=== PATIENT | male | born 1945 | race Caucasian/White ===

== ENCOUNTER 2016-08-18 12:18 | Emergency (ER) | payer MEDICARE ==
[2016-08-18 13:51] VITALS: RESP 20
[2016-08-18] MEDS ORDERED: SODIUM CHLORIDE 0.9% 1,000 ML IV STA (13:55)
[2016-08-18] MEDS ORDERED: ONDANSETRON 4 MG/2 ML VIAL IVP STA (13:55)
[2016-08-18] MEDS ORDERED: SODIUM CHLORIDE 0.9% 500 ML IV STA (13:55)
[2016-08-18 14:42] LABS: CH 32.2; CHCM 33.1; HDW 2.54; HGB 8.8 gm/dL (13.0-17.5); Immature Gran Flag Slight; MCH 33.1 pg (25.0-35.0); MCHC 33.9 g/dL (31.0-37.0); MCV 97.4 fL (80.0-100.0); Macrocytosis Slight; Mean Platelet Volume 10.5; RBC 2.67 m/uL (4.30-5.90); WBC 9.9 k/uL (3.8-10.6); WBC (Perox) 9.49
[2016-08-18 14:43] LABS: Calcium 8.8 mg/dL (8.4-10.2); Potassium 4.2 mmol/L (3.5-5.1); Total Bilirubin 0.7 mg/dL (0.2-1.3); Total Protein 5.3 g/dL (6.3-8.2)
--- NOTE | 2016-08-18 14:43 | XR ---
EXAMINATION TYPE: XR chest 2V DATE OF EXAM: 08/18/2016 2:29 PM COMPARISON: None HISTORY: 70-year-old male with shortness of breath and pain, on chemotherapy for multiple myeloma. TECHNIQUE: PA and lateral views FINDINGS: The cardiomediastinal silhouette, aorta, and pulmonary vasculature are within normal limits. Mild int erstitial prominence as a chronic appearance. Otherwise, lungs and pleural spaces are clear. IMPRESSION: Some chronic appearing changes. No acute cardiopulmonary process.
--- NOTE | 2016-08-18 14:44 | XR ---
EXAMINATION TYPE: XR KUB DATE OF EXAM: 08/18/2016 2:29 PM CLINICAL DATA: 70-year-old male with pain, [facility] COMPARISON: None FINDINGS: Lung bases are clear. No evidence for free intraperitoneal air. No dilated small bowel or air-fluid levels. Moderate stool within the colon. Left hemipelvic phleboliths. IMPRESSION: 1. Moderate stool burden. 2.No evidence of bowel obstruction or free intraperitoneal air.
[2016-08-18 14:55] LABS: Add Differential Manual Differential
[2016-08-18 15:00] LABS: Nucleated Red Blood Cells 0 /100 WBC (0-0); Total Cells Counted 200
[2016-08-18 15:01] LABS: Manual Review Performed
--- NOTE | 2016-08-18 17:07 | ED ---
Nausea/Vomiting/Diarrhea HPI - General Chief complaint: Nausea/Vomiting/Diarrhea Stated complaint: Hypotension Time Seen by Provider: 08/18/16 13:48 Source: patient Mode of arrival: wheelchair Limitations: no limitations - History of Present Illness Initial comments: His blood pressure at home was quite low according to mom he was 84/49 he has end-stage kidney disease, he is in the process of getting a dialysis catheter port in. He was constipated for the last few days he tried lactulose then he had a diarrhea yesterday moved his bowels quite a few times and he also vomited quite a few times. He is on a chemo for multiple myeloma is taken [address] Whitt is look in after his multiple myeloma he vomited 3 times he has been on now back tracts and Bactrim review of system is negative otherwise - Related Data Home Medications Medication Instructions Recorded Confirmed Alfuzosin HCl [Alfuzosin HCl ER] 10 mg PO HS 08/18/16 08/18/16 Allopurinol [Zyloprim] 100 mg PO DAILY 08/18/16 08/18/16 Calcitriol [Rocaltrol] 0.25 mcg PO DAILY 08/18/16 08/18/16 Darifenacin Hydrobromide [Enablex] 15 mg PO HS 08/18/16 08/18/16 Dexamethasone 20 mg PO DIRECTED 08/18/16 08/18/16 Metoprolol Succinate (ER) [Toprol 25 mg PO BID 08/18/16 08/18/16 Xl] Omeprazole [PriLOSEC] 40 mg PO DAILY 08/18/16 08/18/16 Ondansetron [Zofran ODT] 4 mg PO Q6H PRN 08/18/16 08/18/16 Simvastatin [Zocor] 20 mg PO HS 08/18/16 08/18/16 Sodium Bicarbonate Tab 1,950 mg PO DAILY 08/18/16 08/18/16 Sulfamethox-Tmp 400-80Mg [Bactrim 1 tab PO DIRECTED 08/18/16 08/18/16 SS 400-80 mg] valACYclovir [Valtrex] 500 mg PO DAILY 08/18/16 08/18/16 Allergies Allergy/AdvReac Type Severity Reaction Status Date / Time No Known Allergies Allergy Verified 08/18/16 13:51 Review of Systems ROS Statement: Those systems with pertinent positive or pertinent negative responses have been documented in the HPI. ROS Other: All systems not noted in ROS Statement are negative. Past Medical History Past Medical History: Cancer, Hyperlipidemia, Hypertension, Prostate Disorder, Renal Disease Additional Past Medical History / Comment(s): multiple myeloma enlarged prostate kidney stones History of Any Multi-Drug Resistant Organisms: None Reported Additional Past Surgical History / Comment(s): lithotripsy/laser fatty tumor removed Past Psychological History: No Psychological Hx Reported Smoking Status: Never smoker Past Drug Use History: None Reported General Exam - General Exam Comments Initial Comments: General: The patient is awake and alert, in no distress, his blood pressure is 85/60 on arrival Skin: Skin is warm and dry and no rashes or lesions are noted. Eye: Pupils are equal, round and reactive to light, extra-ocular movements are intact; there is normal conjunctiva bilaterally. Ears, nose, mouth and throat: There are moist mucous membranes and no oral lesions. Neck: The neck is supple, there is no tenderness or JVD. Cardiovascular: There is a regular rate and rhythm. No murmur, rub or gallop is appreciated. Respiratory: To auscultation bilateral, no wheezing no rhonchi no distress respiratory benavidez noticed Gastrointestinal: Soft, non-distended, non-tender abdomen without masses or organomegaly noted. There is no rebound or guarding present. Bowel sounds are unremarkable. Back: There is no tenderness to palpation in the midline. There is no obvious deformity. Musculoskeletal: Normal ROM, no tenderness, There is no pedal edema. There is no calf tenderness or swelling. No cords were appreciated. Neurological: CN II-XII intact, Cranial nerves III through XII are intact. There are no obvious motor or sensory deficits. Coordination appears grossly intact. Speech is normal. Psychiatric: Cooperative, appropriate mood & affect, normal judgment. Limitations: no limitations Course Vital Signs 08/18/16 08/18/16 08/18/16 13:12 13:51 14:38 Temperature 97.2 F L Pulse Rate 86 90 88 Respiratory 16 20 20 Rate Blood Pressure 84/49 115/66 117/69 O2 Sat by Pulse 98 96 98 Oximetry 08/18/16 08/18/16 15:33 16:26 Temperature Pulse Rate 90 89 Respiratory 20 20 Rate Blood Pressure 141/73 145/75 O2 Sat by Pulse 98 98 Oximetry EKG is normal sinus rhythm medical rate is 88 MI interval is 186 QRS duration is 80 QT/QTC 356/4:30 review of this EKG does not reveal any ST elevation or ST depression - Reevaluation(s) Reevaluation #1: 08/18/16 17:05 Patient was evaluated and we are a CBC compressive metabolic panel chest x-ray and KUB KUB to rule out any multiple air-fluid levels or obvious bowel obstruction his creatinine is 4.8 baseline creatinine from the previous lab work is a 3.5 CBC did not reveal any neutropenia is in was given now fluid bolus in the ER and I plan to admit him and observation now with the IV hydration but patient wanted to leave he promises that he will drink Gatorade and he has appointment with the kidney doctor on Saturday Dr. Hawkins and he has appointment with the Dr. Whitt on Saturday as well, respecting patient's wishes will DC discharge him home he is advised to come back is if his symptoms get worse Medical Decision Making - Lab Data Result diagrams: 08/18/16 14:10 08/18/16 14:10 Lab Results 08/18/16 08/18/16 Range/Units 14:10 14:10 WBC 9.9 (3.8-10.6) k/uL RBC 2.67 L (4.30-5.90) m/uL Hgb 8.8 L (13.0-17.5) gm/dL Hct 26.0 L (39.0-53.0) % MCV 97.4 (80.0-100.0) fL MCH 33.1 (25.0-35.0) pg MCHC 33.9 (31.0-37.0) g/dL RDW 16.0 H (11.5-15.5) % Plt Count 77 L (150-450) k/uL Neutrophils % (Manual) 87.5 % Band Neutrophils % 6.0 % Lymphocytes % (Manual) 2.0 % Monocytes % (Manual) 2.5 % Metamyelocytes % 2.0 % Neutrophils # (Manual) 9.3 H (1.3-7.7) k/uL Lymphocytes # (Manual) 0.2 L (1.0-4.8) k/uL Monocytes # (Manual) 0.2 (0-1.0) k/uL Nucleated RBCs 0 (0-0) /100 WBC Manual Slide Review Performed Poikilocytosis (manual Present Macrocytosis Slight Sodium 135 L (137-145) mmol/L Potassium 4.2 (3.5-5.1) mmol/L Chloride 104 (98-107) mmol/L Carbon Dioxide 20 L (22-30) mmol/L Anion Gap 11 mmol/L BUN 60 H (9-20) mg/dL Creatinine 4.80 H (0.66-1.25) mg/dL Est GFR (MDRD) Af Amer 15 (>60 ml/min/1.73 sqM) Est GFR (MDRD) Non-Af 12 (>60 ml/min/1.73 sqM) Glucose 113 H (74-99) mg/dL Calcium 8.8 (8.4-10.2) mg/dL Total Bilirubin 0.7 (0.2-1.3) mg/dL AST 23 (17-59) U/L ALT 27 (21-72) U/L Alkaline Phosphatase 52 (38-126) U/L Total Protein 5.3 L (6.3-8.2) g/dL Albumin 3.2 L (3.5-5.0) g/dL Amylase 139 H (30-110) U/L Lipase 221 (23-300) U/L Disposition Clinical Impression: Hypotension, Dehydration, Acute on chronic renal failure Disposition: HOME SELF-CARE Referrals: Sadie Shaikh DO [Primary Care Provider] - 1-2 days
[2016-08-18 17:22] VITALS: BP 141/66; PULSE 78; TEMP 98.2
== END 2016-08-18 17:22 | disposition home or self-care (01) ==
LOC: EC 12:18
DX: N17.9 Acute kidney failure, unspecified (principal); N18.6 End stage renal disease; E86.0 Dehydration; I95.9 Hypotension, unspecified; R11.2 Nausea with vomiting, unspecified; E78.5 Hyperlipidemia, unspecified; N40.0 Benign prostatic hyperplasia without lower urinary tract symptoms; Z79.899 Other long term (current) drug therapy; Z87.442 Personal history of urinary calculi; Z85.89 Personal history of malignant neoplasm of other organs and systems
CPT/HCPCS: 36415; 71020; 74000; 80053; 82150; 83690; 85025; 93005; 96361; 96374; 99284

== ENCOUNTER → 2016-09-07 | Day surgery (SDC) | payer MEDICARE ==
[~2016-09-07] MED LIST: BUPIVACAIN-EPI 0.25%-1:200,000 30 ML VIAL SQ ONE; DEXAMETHASONE SOD PHOSPHATE 10 MG/ML 1 ML VIAL IV ONE; HYDROcodone/APAP 5-325MG 1 EACH TAB PO ONE; HYDROcodone/APAP 5-325MG 1 EACH TAB PO PRN; HYDROmorphone 1 MG/ML 1 ML SYRINGE IVP PRN; LACTATED RINGERS 1,000 ML IV SCH; LIDOCAINE 1% 20 ML VIAL (10MG/ML) FOR IV START INTRADERMA PRN; LIDOCAINE 1% INJ 10MG/ML (20 ML MDV) ONE; MIDAZOLAM 2 MG/2 ML VIAL IV PRN; MIDAZOLAM 2 MG/2 ML VIAL ONE; MINERAL OIL 1 APPLIC/ML OIL MISCELLANE ONE; MORPHINE SULFATE 4 MG/ML SYRINGE IV ONE; NALOXONE 0.4 MG/ML 1 ML VIAL IV PRN; ONDANSETRON 4 MG/2 ML VIAL IVP ONE; PROPOFOL 10 MG/ML 20 ML VIAL IV ONE; SCOPOLAMINE 1.5MG/72HR PATCH TRANSDERM ONE; ceFAZolin 2 GM in SODIUM CHLORIDE 0.9% 100 ML IVPB ONE; fentaNYL (PF) 50 MCG/ML 2 ML AMP ONE
[2016-09-07 06:33] VITALS: TEMP 97.6
[2016-09-07 06:40] LABS: Glucose,Whole Blood 105 mg/dL (75-99)
[2016-09-07 06:45] LABS: Basophils % (A) 1 %; CH 33.4; CHCM 33.8; Eosinophils # (A) 0.1 k/uL (0-0.7); Eosinophils % (A) 2 %; HCT 29.2 % (39.0-53.0); HDW 2.85; Luc % (Auto) 3; Lymphocytes # (A) 0.4 k/uL (1.0-4.8); Lymphocytes % (A) 11 %; MCH 33.9 pg (25.0-35.0); MCHC 34.1 g/dL (31.0-37.0); MCV 99.3 fL (80.0-100.0); Macrocytosis Slight; Mean Platelet Volume 6.9; Monocytes # (A) 0.3 k/uL (0-1.0); Monocytes % (A) 7 %; Neutrophils % (A) 77 %; RBC 2.94 m/uL (4.30-5.90); RDW 15.6 % (11.5-15.5)
[2016-09-07 06:54] LABS: Calcium 9.2 mg/dL (8.4-10.2)
--- NOTE | 2016-09-07 07:42 | P.GSHP ---
History of Present Illness H&P Date: 09/07/16 Chief Complaint: Renal failure Patient is today for peritoneal dialysis catheter insertion. The patient had previously been seen in the office and he and I discussed in detail the differences between hemodialysis and peritoneal dialysis. The patient is not interested in staying on hemodialysis although he was scheduled for peritoneal dialysis catheter insertion 2-3 weeks ago and was postponed and instead had a temporary Hemo-Cath placed. The patient states the hemodialysis makes him quite fatigued. He still interested in peritoneal catheter insertion. no history of hernia. Past Medical History Past Medical History: Cancer, Dialysis, GERD/Reflux, Hyperlipidemia, Hypertension, Prostate Disorder, Renal Disease Additional Past Medical History / Comment(s): multiple myeloma ,enlarged prostate kidney stones , on hemodialysis now-,, , ORTHOSTATIC HYPOTENSION History of Any Multi-Drug Resistant Organisms: None Reported Additional Past Surgical History / Comment(s): lithotripsy/laser , fatty tumor removed, colonoscopy, hemodialysis cath insertion 08/22/16 Past Anesthesia/Blood Transfusion Reactions: No Reported Reaction Past Psychological History: No Psychological Hx Reported Smoking Status: Never smoker Past Alcohol Use History: None Reported Past Drug Use History: None Reported - Past Family History Father Family Medical History: Cancer, Deep Vein Thrombosis (DVT) Sister(s) Family Medical History: Cancer Medications and Allergies Home Medications Medication Instructions Recorded Confirmed Type Alfuzosin HCl [Alfuzosin HCl ER] 10 mg PO HS 08/18/16 09/07/16 History Allopurinol [Zyloprim] 100 mg PO QAM 08/18/16 09/07/16 History Darifenacin Hydrobromide [Enablex] 15 mg PO HS 08/18/16 09/07/16 History Dexamethasone 20 mg PO DAILY 08/18/16 09/07/16 History Metoprolol Succinate (ER) [Toprol 25 mg PO HS 08/18/16 09/07/16 History Xl] Omeprazole [PriLOSEC] 40 mg PO BID 08/18/16 09/07/16 History Ondansetron [Zofran ODT] 4 mg PO Q4H PRN 08/18/16 09/07/16 History Simvastatin [Zocor] 20 mg PO HS 08/18/16 09/07/16 History Sulfamethox-Tmp 400-80Mg [Bactrim 1 tab PO DIRECTED 08/18/16 09/07/16 History SS 400-80 mg] valACYclovir [Valtrex] 500 mg PO QAM 08/18/16 09/07/16 History Lactulose 10 gm PO TID PRN 08/20/16 09/07/16 History Allergies Allergy/AdvReac Type Severity Reaction Status Date / Time No Known Allergies Allergy Verified 09/07/16 06:06 Surgical - Exam Vital Signs Temp Pulse Resp BP Pulse Ox 97.6 F 101 H 16 128/67 97 09/07/16 06:20 09/07/16 06:20 09/07/16 06:20 09/07/16 06:20 09/07/16 06:20 Physical exam: General: Well-developed, well-nourished HEENT: Normocephalic, sclerae nonicteric Abdomen: Nontender, nondistended Extremities: No edema Neuro: Alert and oriented Results - Labs 09/07/16 06:20 09/07/16 06:20 Abnormal Lab Results - Last 24 Hours (Table) 09/07/16 09/07/16 09/07/16 Range/Units 06:20 06:20 06:24 RBC 2.94 L (4.30-5.90) m/uL Hgb 10.0 L (13.0-17.5) gm/dL Hct 29.2 L (39.0-53.0) % RDW 15.6 H (11.5-15.5) % Lymphocytes # 0.4 L (1.0-4.8) k/uL Sodium 136 L (137-145) mmol/L Creatinine 3.30 H (0.66-1.25) mg/dL Glucose 100 H (74-99) mg/dL POC Glucose (mg/dL) 105 H (75-99) mg/dL Diabetes panel 09/07/16 Range/Units 06:20 Sodium 136 L (137-145) mmol/L Potassium 4.0 (3.5-5.1) mmol/L Chloride 98 (98-107) mmol/L Carbon Dioxide 28 (22-30) mmol/L BUN 14 (9-20) mg/dL Creatinine 3.30 H (0.66-1.25) mg/dL Glucose 100 H (74-99) mg/dL Calcium 9.2 (8.4-10.2) mg/dL Calcium panel 09/07/16 Range/Units 06:20 Calcium 9.2 (8.4-10.2) mg/dL Pituitary panel 09/07/16 Range/Units 06:20 Sodium 136 L (137-145) mmol/L Potassium 4.0 (3.5-5.1) mmol/L Chloride 98 (98-107) mmol/L Carbon Dioxide 28 (22-30) mmol/L BUN 14 (9-20) mg/dL Creatinine 3.30 H (0.66-1.25) mg/dL Glucose 100 H (74-99) mg/dL Calcium 9.2 (8.4-10.2) mg/dL Adrenal panel 09/07/16 Range/Units 06:20 Sodium 136 L (137-145) mmol/L Potassium 4.0 (3.5-5.1) mmol/L Chloride 98 (98-107) mmol/L Carbon Dioxide 28 (22-30) mmol/L BUN 14 (9-20) mg/dL Creatinine 3.30 H (0.66-1.25) mg/dL Glucose 100 H (74-99) mg/dL Calcium 9.2 (8.4-10.2) mg/dL Assessment and Plan (1) Acute on chronic renal failure Narrative/Plan: Will proceed with peritoneal dialysis cath insertion today. Risks of bleeding, infection, catheter malfunction, bowel injury. He understands and wishes to proceed Status: Acute
--- NOTE | 2016-09-07 09:08 | P.PCN ---
Date of Procedure: 09/07/16 Procedure(s) Performed: PREOPERATIVE DIAGNOSIS: Renal failure POSTOPERATIVE DIAGNOSIS: Same PROCEDURE: Peritoneal dialysis catheter insertion SURGEON: Tomasz EBL: Minimal ANESTHESIA: Sedation plus local COMPLICATIONS: None OPERATIVE PROCEDURE: The patient was placed in the operative table in the supine position. His abdomen was prepped and draped in usual sterile fashion. A small vertical incision was made in the right periumbilical location. Dissection down through the subcutaneous tissues took place using electrocautery. The anterior rectus was divided vertically using the scalpel. The rectus was bluntly. The posterior rectus was visualized. An 0 Vicryl pursestring was placed. A small opening in the posterior rectus fascia and peritoneum took place using a Metzenbaum scissors. There were no adhesions to the suture that was placed. The pigtail catheter was advanced into the pelvis over a stylette. No resistance was met. The inner cuff was secured to the fascia using the 0 Vicryl pursestring that was placed. The catheter was tunneled to an exit site in the right lateral lower quadrant. The catheter was connected to the 1 L bag of saline and approximated 800 mL of saline was easily introduced into the peritoneal cavity. The fluid was then allowed to evacuate. The majority of the fluid was returned. The anterior rectus fascia was then reapproximated using a running 0 Vicryl stitch. The subcutaneous tissues reprepped using 3-0 Vicryl sutures and the skin using 4-0 Monocryl sutures. The outpatient dialysis adapter was applied to the end of the catheter. A sterile dressings then applied after Steri-Strips were placed over the incision. DISPOSITION: Stable to recovery room
[2016-09-07 10:46] VITALS: BP 125/75; PULSE 88; RESP 16
== END ==
LOC: OR 06:01
PROVIDERS: ATTEND Surgery
DX: Z46.82 Encounter for fitting and adjustment of non-vascular catheter (principal); I12.0 Hypertensive chronic kidney disease with stage 5 chronic kidney disease or end stage renal disease; N18.6 End stage renal disease; N17.9 Acute kidney failure, unspecified; Z99.2 Dependence on renal dialysis; C90.00 Multiple myeloma not having achieved remission; K21.9 Gastro-esophageal reflux disease without esophagitis; E78.5 Hyperlipidemia, unspecified; N40.0 Benign prostatic hyperplasia without lower urinary tract symptoms; Z79.2 Long term (current) use of antibiotics; Z79.899 Other long term (current) drug therapy
CPT/HCPCS: 80048; 85025; 49421; C1752; J2250; J2270; J0690; J2405; J2001; J3010; J2704

== ENCOUNTER 2016-09-24 14:20 | Inpatient (IN) | payer MEDICARE ==
[2016-09-24] MEDS ORDERED: SODIUM CHLORIDE 0.9% 1,000 ML IV STA ×2 (14:34)
[2016-09-24] MEDS ORDERED: methylPREDNISolone SOD SUCCI 125 MG/2 ML VIAL IV STA (14:35)
--- NOTE | 2016-09-24 14:38 | ED ---
General Adult HPI - General Chief complaint: Weakness Stated complaint: hypotension Time Seen by Provider: 09/24/16 14:23 Source: patient, EMS, RN notes reviewed, old records reviewed Mode of arrival: EMS Limitations: no limitations - History of Present Illness Initial comments: This is a 70-year-old male to the ER for evaluation. Urinary for evaluation of weakness, lethargy, low blood pressure and elevated heart rate. Patient suffers some similar episodes before. Denies recent trauma no recent fevers, no chemo since Saturday. Patient is off chemotherapy over this entire week. Mild nausea no vomiting no diarrhea. No abdominal pain no chest pain no-shows of breath no cough no congestion. Patient does admit to decreased appetite and decreased hydration - Related Data Home Medications Medication Instructions Recorded Confirmed Alfuzosin HCl [Alfuzosin HCl ER] 10 mg PO HS 08/18/16 09/24/16 Allopurinol [Zyloprim] 100 mg PO QAM 08/18/16 09/24/16 Darifenacin Hydrobromide [Enablex] 15 mg PO HS 08/18/16 09/24/16 Dexamethasone 20 mg PO DIRECTED 08/18/16 09/24/16 Omeprazole [PriLOSEC] 20 mg PO QAM 08/18/16 09/24/16 Simvastatin [Zocor] 20 mg PO HS 08/18/16 09/24/16 Sulfamethox-Tmp 400-80Mg [Bactrim 1 tab PO MOWEFR 08/18/16 09/24/16 SS 400-80 mg] valACYclovir [Valtrex] 500 mg PO QAM 08/18/16 09/24/16 Lactulose 20 gm PO TID PRN 08/20/16 09/24/16 Docusate [Colace] 100 mg PO HS 09/24/16 09/24/16 Gabapentin [Neurontin] 100 mg PO HS 09/24/16 09/24/16 Metoprolol Succinate [Toprol XL] 25 mg PO HS 09/24/16 09/24/16 Allergies Allergy/AdvReac Type Severity Reaction Status Date / Time ondansetron AdvReac Constipatio Verified 09/24/16 15:15 n Review of Systems ROS Statement: Those systems with pertinent positive or pertinent negative responses have been documented in the HPI. ROS Other: All systems not noted in ROS Statement are negative. Past Medical History Past Medical History: Cancer, Dialysis, GERD/Reflux, Hyperlipidemia, Hypertension, Prostate Disorder, Renal Disease Additional Past Medical History / Comment(s): multiple myeloma ,enlarged prostate kidney stones , on hemodialysis now-,, , ORTHOSTATIC HYPOTENSION History of Any Multi-Drug Resistant Organisms: None Reported Additional Past Surgical History / Comment(s): lithotripsy/laser , fatty tumor removed, colonoscopy, hemodialysis cath insertion 08/22/16 Past Anesthesia/Blood Transfusion Reactions: No Reported Reaction Past Psychological History: No Psychological Hx Reported Smoking Status: Never smoker Past Alcohol Use History: None Reported Past Drug Use History: None Reported - Past Family History Sister(s) Family Medical History: Cancer Father Family Medical History: Cancer, Deep Vein Thrombosis (DVT) General Exam Limitations: no limitations General appearance: alert, in no apparent distress Head exam: Present: atraumatic, normocephalic, normal inspection Eye exam: Present: normal appearance, PERRL, EOMI. Absent: scleral icterus, conjunctival injection, periorbital swelling ENT exam: Present: mucous membranes dry Neck exam: Present: normal inspection. Absent: tenderness, meningismus, lymphadenopathy Respiratory exam: Present: normal lung sounds bilaterally. Absent: respiratory distress, wheezes, rales, rhonchi, stridor Cardiovascular Exam: Present: normal rhythm, tachycardia, normal heart sounds. Absent: systolic murmur, diastolic murmur, rubs, gallop, clicks GI/Abdominal exam: Present: soft, normal bowel sounds. Absent: distended, tenderness, guarding, rebound, rigid Extremities exam: Present: normal inspection, full ROM, normal capillary refill. Absent: tenderness, pedal edema, joint swelling, calf tenderness Back exam: Present: normal inspection Neurological exam: Present: alert, oriented X3, CN II-XII intact Psychiatric exam: Present: normal affect, normal mood Skin exam: Present: warm, dry, intact, normal color. Absent: rash Course Vital Signs 09/24/16 09/24/16 09/24/16 14:22 14:25 14:51 Temperature 98.1 F Pulse Rate 116 H 103 H Respiratory 18 18 18 Rate Blood Pressure 119/61 158/83 O2 Sat by Pulse 96 98 Oximetry - Reevaluation(s) Reevaluation #1: 09/24/16 16:05 Patient still feeling weak and dizzy, postural tachycardia with orthostatic hypotension EKG Findings - EKG Comments: EKG Findings:: EKG shows sinus tachycardia rate 107, OH 160, QRS 84, QTC 443 Medical Decision Making - Medical Decision Making 70 male the year with persistent near syncope. Positional weakness and collapse. Patient attempted to do orthostatics here in the hospital was unable secondary to dizziness and weakness. Heart rate significantly increased blood pressure significantly dropped. Patient will be admitted for further evaluation of orthostatic hypotension, postural tachycardia - Lab Data Result diagrams: 09/24/16 14:34 09/24/16 14:34 Lab Results 09/24/16 09/24/16 09/24/16 Range/Units 14:34 14:34 14:34 WBC 8.8 (3.8-10.6) k/uL RBC 3.13 L (4.30-5.90) m/uL Hgb 10.3 L (13.0-17.5) gm/dL Hct 30.7 L (39.0-53.0) % MCV 98.0 (80.0-100.0) fL MCH 33.0 (25.0-35.0) pg MCHC 33.7 (31.0-37.0) g/dL RDW 15.5 (11.5-15.5) % Plt Count 57 L D (150-450) k/uL Neutrophils % 85 % Lymphocytes % 8 % Monocytes % 6 % Eosinophils % 0 % Basophils % 0 % Neutrophils # 7.4 (1.3-7.7) k/uL Lymphocytes # 0.7 L (1.0-4.8) k/uL Monocytes # 0.5 (0-1.0) k/uL Eosinophils # 0.0 (0-0.7) k/uL Basophils # 0.0 (0-0.2) k/uL Anisocytosis (manual) Present Macrocytosis Slight PT (9.0-12.0) sec INR (<1.1) APTT (22.0-30.0) sec Sodium 131 L (137-145) mmol/L Potassium 3.4 L (3.5-5.1) mmol/L Chloride 96 L (98-107) mmol/L Carbon Dioxide 26 (22-30) mmol/L Anion Gap 9 mmol/L BUN 43 H (9-20) mg/dL Creatinine 4.13 H (0.66-1.25) mg/dL Est GFR (MDRD) Af Amer 18 (>60 ml/min/1.73 sqM) Est GFR (MDRD) Non-Af 14 (>60 ml/min/1.73 sqM) Glucose 113 H (74-99) mg/dL Calcium 9.2 (8.4-10.2) mg/dL Phosphorus 3.3 (2.5-4.5) mg/dL Magnesium 1.7 (1.6-2.3) mg/dL Total Bilirubin 1.0 (0.2-1.3) mg/dL AST 21 (17-59) U/L ALT 22 (21-72) U/L Alkaline Phosphatase 53 (38-126) U/L Total Creatine Kinase <20 L (55-170) U/L CK-MB (CK-2) 1.3 (0.0-2.4) ng/mL CK-MB (CK-2) Rel Index 0.0 Troponin I 0.385 H* (0.000-0.034) ng/mL Total Protein 5.3 L (6.3-8.2) g/dL Albumin 3.2 L (3.5-5.0) g/dL 09/24/16 Range/Units 14:34 WBC (3.8-10.6) k/uL RBC (4.30-5.90) m/uL Hgb (13.0-17.5) gm/dL Hct (39.0-53.0) % MCV (80.0-100.0) fL MCH (25.0-35.0) pg MCHC (31.0-37.0) g/dL RDW (11.5-15.5) % Plt Count (150-450) k/uL Neutrophils % % Lymphocytes % % Monocytes % % Eosinophils % % Basophils % % Neutrophils # (1.3-7.7) k/uL Lymphocytes # (1.0-4.8) k/uL Monocytes # (0-1.0) k/uL Eosinophils # (0-0.7) k/uL Basophils # (0-0.2) k/uL Anisocytosis (manual) Macrocytosis PT 10.2 (9.0-12.0) sec INR 1.0 (<1.1) APTT 20.0 L (22.0-30.0) sec Sodium (137-145) mmol/L Potassium (3.5-5.1) mmol/L Chloride (98-107) mmol/L Carbon Dioxide (22-30) mmol/L Anion Gap mmol/L BUN (9-20) mg/dL Creatinine (0.66-1.25) mg/dL Est GFR (MDRD) Af Amer (>60 ml/min/1.73 sqM) Est GFR (MDRD) Non-Af (>60 ml/min/1.73 sqM) Glucose (74-99) mg/dL Calcium (8.4-10.2) mg/dL Phosphorus (2.5-4.5) mg/dL Magnesium (1.6-2.3) mg/dL Total Bilirubin (0.2-1.3) mg/dL AST (17-59) U/L ALT (21-72) U/L Alkaline Phosphatase (38-126) U/L Total Creatine Kinase (55-170) U/L CK-MB (CK-2) (0.0-2.4) ng/mL CK-MB (CK-2) Rel Index Troponin I (0.000-0.034) ng/mL Total Protein (6.3-8.2) g/dL Albumin (3.5-5.0) g/dL Disposition Clinical Impression: Orthostatic hypotension, Weakness Disposition: HOME SELF-CARE Condition: Fair Referrals: Sadie Shaikh DO [Primary Care Provider] - 1-2 days
[2016-09-24 14:59] LABS: Calcium 9.2 mg/dL (8.4-10.2); Magnesium 1.7 mg/dL (1.6-2.3); Phosphorous 3.3 mg/dL (2.5-4.5); Potassium 3.4 mmol/L (3.5-5.1); Total Protein 5.3 g/dL (6.3-8.2)
[2016-09-24 15:00] LABS: Basophils % (A) 0 %; CH 34.2; Eosinophils % (A) 0 %; HCT 30.7 % (39.0-53.0); HDW 2.64; HGB 10.3 gm/dL (13.0-17.5); Large Platelets Flag Slight; Luc # (Auto) 0.11; Luc % (Auto) 1; Lymphocytes # (A) 0.7 k/uL (1.0-4.8); Lymphocytes % (A) 8 %; MCHC 33.7 g/dL (31.0-37.0); Macrocytosis Slight; Mean Platelet Volume 10.8; Monocytes # (A) 0.5 k/uL (0-1.0); Monocytes % (A) 6 %; Neutrophils # (A) 7.4 k/uL (1.3-7.7); Neutrophils % (A) 85 %; RBC 3.13 m/uL (4.30-5.90); RDW 15.5 % (11.5-15.5); WBC 8.8 k/uL (3.8-10.6); WBC (Perox) 8.69
[2016-09-24 15:08] LABS: Prothrombin Time 10.2 sec (9.0-12.0)
[2016-09-24 15:16] LABS: Creatine Kinase <20 U/L (55-170)
[2016-09-24 15:29] LABS: Creatine Kinase MB 1.3 ng/mL (0.0-2.4)
[2016-09-24 15:37] LABS: Troponin I 0.385 ng/mL (0.000-0.034)
[2016-09-24] MEDS ORDERED: SODIUM CHLORIDE 0.9% 1,000 ML IV ONE (16:00)
--- NOTE | 2016-09-25 08:43 | P.HPIM ---
History of Present Illness H&P Date: 09/25/16 Chief Complaint: Weakness and dizziness Patient is a 70-year-old male patient of [facility] who presented to [facility] emergency room with chief complaints of dizziness and weakness. Patient states that he has been having episodes of orthostatic hypotension, especially after hemodialysis sessions where his blood pressure drops significantly when standing up. His symptoms have been worsening and recently affecting his daily activity due to severe dizziness and weakness he states he was hardly able to stand up. Patient was evaluated in the emergency room, he had significant orthostatic changes, his troponin was also slightly elevated, he was admitted to telemetry floor for further evaluation and treatment. Patient has known history of multiple myeloma he has been receiving chemotherapy his last treatment was on Saturday. Patient also has known history of end-stage renal disease on hemodialysis which he receives through a catheter in the right subclavicular area, he also states that he had a peritoneal catheter placed to a and a half weeks ago as he plans to switch to peritoneal dialysis however he has not started that yet. Past Medical History Past Medical History: Cancer (multiple myeloma), Dialysis, GERD/Reflux, Hyperlipidemia, Hypertension, Prostate Disorder, Renal Disease Additional Past Medical History / Comment(s): multiple myeloma ,enlarged prostate kidney stones ,diverticulosis, hiatal hernia, on hemodialysis now-, , ORTHOSTATIC HYPOTENSION History of Any Multi-Drug Resistant Organisms: None Reported Additional Past Surgical History / Comment(s): lithotripsy/laser , fatty tumor removed, colonoscopy,PERMA cath rt upper chest, hemodialysis cath insertion 08/22, beginning of cataracts Past Anesthesia/Blood Transfusion Reactions: No Reported Reaction Past Psychological History: No Psychological Hx Reported Additional Psychological History / Comment(s): lives with augustine in a 2 story home but pt stays on first level.has 2 steps in which to enter home. uses a walker/cane when up.. no pets. pt served in the [employer] when younger. 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 Smoking Status: Never smoker Past Alcohol Use History: Occasional Past Drug Use History: None Reported - Past Family History Sister(s) Family Medical History: Cancer Father Family Medical History: Cancer, Deep Vein Thrombosis (DVT) Medications and Allergies Home Medications Medication Instructions Recorded Confirmed Type Alfuzosin HCl [Alfuzosin HCl ER] 10 mg PO HS 08/18/16 09/24/16 History Allopurinol [Zyloprim] 100 mg PO QAM 08/18/16 09/24/16 History Darifenacin Hydrobromide [Enablex] 15 mg PO HS 08/18/16 09/24/16 History Dexamethasone 20 mg PO DIRECTED 08/18/16 09/24/16 History Omeprazole [PriLOSEC] 20 mg PO QAM 08/18/16 09/24/16 History Simvastatin [Zocor] 20 mg PO HS 08/18/16 09/24/16 History Sulfamethox-Tmp 400-80Mg [Bactrim 1 tab PO MOWEFR 08/18/16 09/24/16 History SS 400-80 mg] valACYclovir [Valtrex] 500 mg PO QAM 08/18/16 09/24/16 History Lactulose 20 gm PO TID PRN 08/20/16 09/24/16 History Docusate [Colace] 100 mg PO HS 09/24/16 09/24/16 History Gabapentin [Neurontin] 100 mg PO HS 09/24/16 09/24/16 History Metoprolol Succinate [Toprol XL] 25 mg PO HS 09/24/16 09/24/16 History Allergies Allergy/AdvReac Type Severity Reaction Status Date / Time ondansetron AdvReac Constipatio Verified 09/24/16 15:15 n Physical Exam Vitals: Vital Signs Temp Pulse Pulse Resp BP BP BP 09/25/16 04:00 98.5 F 104 H 18 149/91 09/25/16 00:00 97.8 F 99 17 133/78 09/24/16 20:05 102 H 16 89/54 141/79 09/24/16 20:00 97.8 F 102 H 16 141/79 09/24/16 18:29 104 H 16 09/24/16 18:00 104 H 16 147/95 09/24/16 17:25 97.4 F L 97 16 174/81 09/24/16 17:16 97.4 F L 97 16 174/81 09/24/16 16:18 97.5 F L 97 16 132/64 09/24/16 16:06 103 H 131/66 09/24/16 16:05 97 151/73 09/24/16 14:51 103 H 18 158/83 05/15/17 14:25 18 09/24/16 14:22 98.1 F 116 H 18 119/61 Pulse Ox 09/25/16 04:00 95 09/25/16 00:00 95 09/24/16 20:05 96 09/24/16 20:00 96 09/24/16 18:29 09/24/16 18:00 95 09/24/16 17:25 97 09/24/16 17:16 97 09/24/16 16:18 98 09/24/16 16:06 09/24/16 16:05 09/24/16 14:51 98 09/24/16 14:25 09/24/16 14:22 96 Intake and Output 09/24/16 09/25/16 09/25/16 22:59 06:59 14:59 Intake Total 800 125 Output Total 50 Balance -50 800 125 Intake: IV 800 Sodium Chloride 0.9% 1, 800 000 ml @ 100 mls/hr IV . Q10H ONE Rx#:[id number] Oral 125 Output: Urine 50 Other: Voiding Method Bedside Commode Toilet Bedside Commode Weight 79.7 kg In general patient is alert and oriented 3 in no apparent distress HEENT head normocephalic and atraumatic Neck is supple no JVD no goiter no lymphadenopathy Chest exam reveals a few scattered rhonchi no wheezing Cardiac exam reveals regular heart sounds S1 and S2 with mild tachycardia no gallops no murmurs Abdomen is soft nontender no organomegaly Extremity exam reveals no edema no cyanosis or clubbing Results CBC & Chem 7: 09/24/16 14:34 09/24/16 14:34 Labs: Abnormal Lab Results - Last 24 Hours (Table) 09/24/16 09/24/16 09/24/16 Range/Units 14:34 14:34 14:34 RBC 3.13 L (4.30-5.90) m/uL Hgb 10.3 L (13.0-17.5) gm/dL Hct 30.7 L (39.0-53.0) % Plt Count 57 L D (150-450) k/uL Lymphocytes # 0.7 L (1.0-4.8) k/uL APTT (22.0-30.0) sec Sodium 131 L (137-145) mmol/L Potassium 3.4 L (3.5-5.1) mmol/L Chloride 96 L (98-107) mmol/L BUN 43 H (9-20) mg/dL Creatinine 4.13 H (0.66-1.25) mg/dL Glucose 113 H (74-99) mg/dL Total Creatine Kinase <20 L (55-170) U/L Troponin I 0.385 H* (0.000-0.034) ng/mL Total Protein 5.3 L (6.3-8.2) g/dL Albumin 3.2 L (3.5-5.0) g/dL 09/24/16 Range/Units 14:34 RBC (4.30-5.90) m/uL Hgb (13.0-17.5) gm/dL Hct (39.0-53.0) % Plt Count (150-450) k/uL Lymphocytes # (1.0-4.8) k/uL APTT 20.0 L (22.0-30.0) sec Sodium (137-145) mmol/L Potassium (3.5-5.1) mmol/L Chloride (98-107) mmol/L BUN (9-20) mg/dL Creatinine (0.66-1.25) mg/dL Glucose (74-99) mg/dL Total Creatine Kinase (55-170) U/L Troponin I (0.000-0.034) ng/mL Total Protein (6.3-8.2) g/dL Albumin (3.5-5.0) g/dL Thrombosis Risk Factor Assmnt - Choose All That Apply Any of the Below Risk Factors Present?: Yes Other Risk Factors: Yes Each Risk Factor Represents 2 Points: Age 61-74 years, Malignancy Each Risk Factor Represents 3 Points: Family history of DVT/PE Other congenital or acquired thrombophilia - If yes, enter type in comment: No Thrombosis Risk Factor Assessment Total Risk Factor Score: 7 Thrombosis Risk Factor Assessment Level: High Risk Assessment and Plan Plan: #1 orthostatic hypotension with dizziness and severe weakness #2 end-stage renal disease on hemodialysis #3 underlying history of multiple myeloma currently receiving chemotherapy his last session was last Saturday #4 mild elevation in troponin level without any chest pain At this time patient is admitted to telemetry floor, will check echocardiogram and carotid Doppler Radiology and nephrology consultation were requested
[2016-09-25 08:45] LABS: Basophils % (A) 0 %; CH 33.4; CHCM 33.1; Eosinophils % (A) 0 %; HDW 2.35; HGB 9.6 gm/dL (13.0-17.5); Large Platelets Flag Slight; Luc # (Auto) 0.08; Luc % (Auto) 1; Lymphocytes # (A) 0.3 k/uL (1.0-4.8); Lymphocytes % (A) 3 %; MCH 33.3 pg (25.0-35.0); MCHC 32.9 g/dL (31.0-37.0); MCV 101.2 fL (80.0-100.0); Macrocytosis Slight; Mean Platelet Volume 11.5; Monocytes # (A) 0.2 k/uL (0-1.0); Monocytes % (A) 2 %; Neutrophils % (A) 94 %; RBC 2.87 m/uL (4.30-5.90); RDW 15.6 % (11.5-15.5); WBC 10.6 k/uL (3.8-10.6); WBC (Perox) 11.16
[2016-09-25] MEDS ORDERED: ENOXAPARIN 30 MG/0.3 ML SYRINGE SQ SCH (09:00)
[2016-09-25 09:02] LABS: Phosphorous 3.6 mg/dL (2.5-4.5); Potassium 3.8 mmol/L (3.5-5.1); Total Bilirubin 0.9 mg/dL (0.2-1.3); Total Protein 5.1 g/dL (6.3-8.2)
--- NOTE | 2016-09-25 09:13 | P.NPCON ---
History of Present Illness - Reason for Consult end stage renal disease - History of Present Illness Reason for consultation: End-stage renal disease History of present illness: Patient is a 70-year-old male seen in renal consultation for end- stage renal disease. He is maintained on hemodialysis on a Saturday schedule via permacath. He did undergo hemodialysis yesterday. Patient presented to the hospital with generalized weakness and hypotension. Patient states his blood pressure was in the systolic 70s to 80s and he felt quite weak and tired. He denies any vomiting or diarrhea. Oral intake is fair. Denies chest pain. He did receive 1 L bolus while in the hospital however his standing blood pressure this morning was again 84/37. Patient has history of multiple myeloma and is maintained on chemotherapy. Patient also has a peritoneal dialysis catheter which was placed about 2-1/2 weeks ago. He is to follow-up with Dr. Claros and potentially start training next week. No other complaints at this time. Vital signs are stable. General: The patient appeared well nourished and normally developed. HEENT: Head exam is unremarkable. Neck is without jugular venous distension. LUNGS: Lungs are clear to auscultation and percussion. Breath sounds decreased. HEART: Rate and Rhythm are regular. First and second heart sounds normal. No murmurs, rubs or gallops. ABDOMEN: Abdominal exam reveals normal bowel sounds. Non-tender and non- distended. No evidence of peritonitis. EXTREMITITES: No clubbing, cyanosis, or edema. Past Medical History Past Medical History: Cancer (multiple myeloma), Dialysis, GERD/Reflux, Hyperlipidemia, Hypertension, Prostate Disorder, Renal Disease Additional Past Medical History / Comment(s): multiple myeloma ,enlarged prostate kidney stones ,diverticulosis, hiatal hernia, on hemodialysis now-, , , ORTHOSTATIC HYPOTENSION History of Any Multi-Drug Resistant Organisms: None Reported Additional Past Surgical History / Comment(s): lithotripsy/laser , fatty tumor removed, colonoscopy,PERMA cath rt upper chest, hemodialysis cath insertion 08/22, beginning of cataracts Past Anesthesia/Blood Transfusion Reactions: No Reported Reaction Past Psychological History: No Psychological Hx Reported Additional Psychological History / Comment(s): lives with augustine in a 2 story home but pt stays on first level.has 2 steps in which to enter home. uses a walker/cane when up.. no pets. pt served in the [employer] when younger. 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 Smoking Status: Never smoker Past Alcohol Use History: Occasional Past Drug Use History: None Reported - Past Family History Sister(s) Family Medical History: Cancer Father Family Medical History: Cancer, Deep Vein Thrombosis (DVT) Medications and Allergies Home Medications Medication Instructions Recorded Confirmed Type Alfuzosin HCl [Alfuzosin HCl ER] 10 mg PO HS 08/18/16 09/24/16 History Allopurinol [Zyloprim] 100 mg PO QAM 08/18/16 09/24/16 History Darifenacin Hydrobromide [Enablex] 15 mg PO HS 08/18/16 09/24/16 History Dexamethasone 20 mg PO DIRECTED 08/18/16 09/24/16 History Omeprazole [PriLOSEC] 20 mg PO QAM 08/18/16 09/24/16 History Simvastatin [Zocor] 20 mg PO HS 08/18/16 09/24/16 History Sulfamethox-Tmp 400-80Mg [Bactrim 1 tab PO MOWEFR 08/18/16 09/24/16 History SS 400-80 mg] valACYclovir [Valtrex] 500 mg PO QAM 08/18/16 09/24/16 History Lactulose 20 gm PO TID PRN 08/20/16 09/24/16 History Docusate [Colace] 100 mg PO HS 09/24/16 09/24/16 History Gabapentin [Neurontin] 100 mg PO HS 09/24/16 09/24/16 History Metoprolol Succinate [Toprol XL] 25 mg PO HS 09/24/16 09/24/16 History Allergies Allergy/AdvReac Type Severity Reaction Status Date / Time ondansetron AdvReac Constipatio Verified 09/24/16 15:15 n Physical Exam Vitals: Vital Signs Temp Pulse Pulse Resp BP BP BP 09/25/16 04:00 98.5 F 104 H 18 149/91 09/25/16 00:00 97.8 F 99 17 133/78 09/24/16 20:05 102 H 16 89/54 141/79 09/24/16 20:00 97.8 F 102 H 16 141/79 09/24/16 18:29 104 H 16 09/24/16 18:00 104 H 16 147/95 09/24/16 17:25 97.4 F L 97 16 174/81 09/24/16 17:16 97.4 F L 97 16 174/81 09/24/16 16:18 97.5 F L 97 16 132/64 09/24/16 16:06 103 H 131/66 09/24/16 16:05 97 151/73 09/24/16 14:51 103 H 18 158/83 09/24/16 14:25 18 09/24/16 14:22 98.1 F 116 H 18 119/61 Pulse Ox 09/25/16 04:00 95 09/25/16 00:00 95 09/24/16 20:05 96 09/24/16 20:00 96 09/24/16 18:29 09/24/16 18:00 95 09/24/16 17:25 97 09/24/16 17:16 97 09/24/16 16:18 98 09/24/16 16:06 09/24/16 16:05 09/24/16 14:51 98 09/24/16 14:25 09/24/16 14:22 96 Intake and Output 09/24/16 09/25/16 09/25/16 22:59 06:59 14:59 Intake Total 800 125 Output Total 50 Balance -50 800 125 Intake: IV 800 Sodium Chloride 0.9% 1, 800 000 ml @ 100 mls/hr IV . Q10H ONE Rx#:[id number] Oral 125 Output: Urine 50 Other: Voiding Method Bedside Commode Toilet Bedside Commode Weight 79.7 kg Results - Lab Results Most recent lab results Calcium 9.2 mg/dL (8.4-10.2) 09/24/16 14:34 Phosphorus 3.3 mg/dL (2.5-4.5) 09/24/16 14:34 Magnesium 1.7 mg/dL (1.6-2.3) 09/24/16 14:34 09/25/16 08:31 09/24/16 14:34 Assessment and Plan Plan: Assessment: #1. End-stage renal disease maintained on hemodialysis on a Saturday schedule via permacath. #2. Orthostatic hypotension. #3. Multiple myeloma maintained on chemotherapy. #4. Anemia of chronic kidney disease. Rule out iron deficiency. #5. Hypovolemic hyponatremia. #6. Hypokalemia related to poor nutritional status. Magnesium normal. Plan: Hemodialysis today without ultrafiltration. I will give him another 500 mL bolus of 0.9 saline. Start Midodrine 10 mg 3 times daily. Check phosphorus level. check iron studies. Repeat orthostatics this evening. Cardiology evaluation pending. He has a PD catheter in place. He will transition over to peritoneal dialysis in the next couple of weeks. Thank you for the consultation. I will continue to follow the patient with you during his hospital stay.
[2016-09-25] MEDS ORDERED: SODIUM CHLORIDE 0.9% 500 ML IV ONE (10:47)
--- NOTE | 2016-09-25 11:24 | ECHOF ---
Referral Reason:dizziness MEASUREMENTS -------- HEIGHT: 175.3 cm WEIGHT: 79.4 kg BP: 140/60 RVIDd: 2.5 cm (< 3.3) IVSd: 1.2 cm (0.6 - 1.1) LVIDd: 4.5 cm (3.9 - 5.3) LVPWd: 1.0 cm (0.6 - 1.1) IVSs: 1.4 cm LVIDs: 3.2 cm LVPWs: 1.4 cm LA Diam: 3.4 cm (2.7 - 3.8) Ao Diam: 3.0 cm (2.0 - 3.7) AV Cusp: 1.6 cm (1.5 - 2.6) LA Diam: 3.7 cm (2.7 - 3.8) MV EXCURSION: 17.354 mm (> 18.000) MV EF SLOPE: 100 mm/s (70 - 150) EPSS: 0.2 cm MV E Sravan: 0.93 m/s MV DecT: 143 ms MV A Sravan: 0.45 m/s MV E/A Ratio: 2.05 RAP: 5.00 mmHg RVSP: 13.70 mmHg FINDINGS -------- Resting tachycardia (HR>100bpm). This was a technically adequate study. There is mild concentric left ventricular hypertrophy. Overall left ventricular systolic function is normal with, an EF between 60 - 65 %. The right ventricle is normal in size. The left atrial size is normal. The right atrial size is normal. There is mild aortic valve sclerosis. There is no evidence of aortic regurgitation. Mild mitral annular calcification present. Mild mitral regurgitation is present. Mild tricuspid regurgitation present. There is no evidence of pulmonary hypertension. The right ventricular systolic pressure, as measured by Doppler, is 13.70mmHg. There is no pulmonic regurgitation present. The aortic root size is normal. There is no pericardial effusion. CONCLUSIONS -------- 1. There is mild concentric left ventricular hypertrophy. 2. Overall left ventricular systolic function is normal with, an EF between 60 - 65 %. 3. There is mild aortic valve sclerosis. 4. Mild mitral annular calcification present. 5. Mild mitral regurgitation is present. 6. Mild tricuspid regurgitation present. 7. There is no evidence of pulmonary hypertension. 8. The right ventricular systolic pressure, as measured by Doppler, is 13.70mmHg. PACK TRAIN DRIVER: Lynn Rangel RDCS
--- NOTE | 2016-09-25 11:30 | US ---
EXAMINATION TYPE: US carotid duplex BILAT DATE OF EXAM: 09/25/2016 11:06 AM COMPARISON: NONE CLINICAL HISTORY: dizziness. hemodialysis catheter insertion 08/27 right neck, dizziness, weakness EXAM MEASUREMENTS: RIGHT: Peak Systolic Velocity (PSV) cm/sec ----- Right CCA: 95.3 ----- Right ICA: 102.7 ----- Right ECA: 141.5 ICA/CCA ratio: 1.1 RIGHT: End Diastole cm/sec ----- Right CCA: 27.0 ----- Right ICA: 31.7 ----- Right ECA: 20.4 LEFT: Peak Systolic Velocity (PSV) cm/sec ----- Left CCA: 104.1 ----- Left ICA: 147.0 ----- Left ECA: 152.8 ICA/CCA ratio: 1.4 LEFT: End Diastole cm/sec ----- Left CCA: 27.0 ----- Left ICA: 36.6 ----- Left ECA: 25.2 VERTEBRALS (direction of flow): Right Vertebral: Antegrade Left Vertebral: Antegrade *Incidental finding: Thrombus with no flow noted right IJV. Mild to moderate plaque noted bilateral bifurcations. Mildly increased velocities left ICA and ECA IMPRESSION: 1. Incidental note is made of thrombus within the right internal jugular vein. No flow is noted. 2. Atherosclerotic changes bilaterally with no significant hemodynamic stenosis of the carotid bifurc ations.
[2016-09-25 11:36] LABS: % Iron Saturation 35.6 % (20-50)
[2016-09-25] MEDS: MIDODRINE 5 MG TAB PO SCH ×2 (11:58→17:04)
[2016-09-25] MEDS ORDERED: LACTULOSE 20 GM/30 ML CUP PO PRN (12:45)
[2016-09-25] MEDS ORDERED: DEXAMETHASONE 4 MG TAB PO SCH (12:45)
--- NOTE | 2016-09-25 13:07 | P.PN ---
Progress Note - Text Patient interviewed and examined Severe drop in blood pressure following dialysis Despite withdrawal of antihypertensive therapy Suggest Assessment for Dixon's Midodrine 10 mg by mouth to be given 1 hour before dialysis Hold antihypertensive therapy on the days of dialysis
[2016-09-25] MEDS: valACYclovir 500 MG TAB PO SCH (13:39)
[2016-09-25] MEDS: PANTOPRAZOLE 40 MG TABLET PO SCH (13:39)
[2016-09-25] MEDS: ALLOPURINOL 100 MG TAB PO SCH (13:39)
--- NOTE | 2016-09-25 15:16 | CDI ---
In responding to this query, please exercise your independent professional judgment. The [facility] Coding Staff and Clinical Documentation Specialists appreciate your assistance in clarifying documentation, maintaining compliance with coding guidelines, accurately documenting patients condition and capturing severity of illness. The fact that a question is asked does not imply that any particular answer is desired or expected. Communication forms are a method of clarifying documentation and are not made part of the Legal Health Record. Thank you in advance for your clarification. Last Revision, March 2015 Maira Whyte [address] [place] [address] Documentation Clarification Form Date: 09/25/2016 3:04:00 PM From: Lisa Rodriguez CCS, CCDS Admit Date: 09/24/2016 4:00:00 PM Patient Name: Dean Earl Visit Number: [id number] Discharge Date: Dr. Fred Lawrence: Your patient has the documented diagnosis of orthostatic hypotension and ESRD requiring hemodialysis in your History & Physical. Per the H/P: "Patient states that he has been having episodes of orthostatic hypotension, especially after hemodialysis sessions where his BP drips significantly when standing up." A relationship between diagnoses cannot be assumed unless documented as such by the attending physician. In order to capture the severity of condition please document the relationship, if any, between these diagnoses. History/Risk Factors: ESRD on Hemodialysis, has Peritoneal Dialysis cath to switch. Multiple Myeloma. Clinical Indicators: Weakness and dizziness, episodes of orthostatic hypotension. Treatment: Nephrology consult, Cardiology consult. IV fluid, IV fluid bolus, IV Solumedrol. Please clarify and document your clinical opinion in the progress notes and discharge summary if any relationship (due to, caused by, secondary to) exists between these two diagnoses: Orthostatic Hypotension and ESRD or other. Please include clinical findings supporting your diagnosis. Other explanation of clinical findings Unable to determine (no explanation for clinical findings) Please document in your progress notes and discharge summary in order to capture severity of illness and risk of mortality. Include clinical findings that support your diagnosis. FYI: Press F11 to launch patient chart. Place X here if this finding has no clinical significance, is not applicable or if you are not able to provide any additional documentation. Thank You. JOSEE
[2016-09-25 15:34] LABS: Hepatitis B Surface Ag Index 0.05
--- NOTE | 2016-09-25 15:57 | P.CRDCN ---
History of Present Illness Consult date: 09/25/16 Requesting physician: Fred Lawrence Reason for Consult (text): Hypotension Chief complaint: Dizziness and weakness History of present illness: This is a 70-year-old patient with history of hypertension, hyperlipidemia, end- stage renal disease on dialysis, multiple myeloma on chemotherapy, GERD, who presented to the emergency room with complaints of dizziness and weakness. According to the patient he has been having significant drops in blood pressure especially during his dialysis. He states that at times it goes down into the 80s systolic, the staff usually waits for his blood pressure to normalize before discharging him from there. Orthostatic blood pressures were obtained here, 135/76 lying, 110/70 sitting, 84/47 standing, heart rate in the 120s to 130s at times. EKG shows a sinus tachycardia with no acute changes. Echocardiogram with Doppler study was performed which revealed an ejection fraction of 60-65%. Hemoglobin 9.6, platelet count 63, sodium 133, potassium 3.8, BUN 42, creatinine 4.3. Iron 85, TIBC 239, percent saturation 35.6, ferritin 1890. Troponins 0.38, 0.43. Past Medical History Past Medical History: Cancer (multiple myeloma), Dialysis, GERD/Reflux, Hyperlipidemia, Hypertension, Prostate Disorder, Renal Disease Additional Past Medical History / Comment(s): multiple myeloma ,enlarged prostate kidney stones ,diverticulosis, hiatal hernia, on hemodialysis now-, , , ORTHOSTATIC HYPOTENSION History of Any Multi-Drug Resistant Organisms: None Reported Additional Past Surgical History / Comment(s): lithotripsy/laser , fatty tumor removed, colonoscopy,PERMA cath rt upper chest, hemodialysis cath insertion 08/22, beginning of cataracts Past Anesthesia/Blood Transfusion Reactions: No Reported Reaction Past Psychological History: No Psychological Hx Reported Additional Psychological History / Comment(s): lives with augustine in a 2 story home but pt stays on first level.has 2 steps in which to enter home. uses a walker/cane when up.. no pets. 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 Smoking Status: Never smoker Past Alcohol Use History: Occasional Past Drug Use History: None Reported - Past Family History Sister(s) Family Medical History: Cancer Father Family Medical History: Cancer, Deep Vein Thrombosis (DVT) Medications and Allergies Home Medications Medication Instructions Recorded Confirmed Type Alfuzosin HCl [Alfuzosin HCl ER] 10 mg PO HS 08/18/16 09/24/16 History Allopurinol [Zyloprim] 100 mg PO QAM 08/18/16 09/24/16 History Darifenacin Hydrobromide [Enablex] 15 mg PO HS 08/18/16 09/24/16 History Dexamethasone 20 mg PO DIRECTED 08/18/16 09/24/16 History Omeprazole [PriLOSEC] 20 mg PO QAM 08/18/16 09/24/16 History Simvastatin [Zocor] 20 mg PO HS 08/18/16 09/24/16 History Sulfamethox-Tmp 400-80Mg [Bactrim 1 tab PO MOWEFR 08/18/16 09/24/16 History SS 400-80 mg] valACYclovir [Valtrex] 500 mg PO QAM 08/18/16 09/24/16 History Lactulose 20 gm PO TID PRN 08/20/16 09/24/16 History Docusate [Colace] 100 mg PO HS 09/24/16 09/24/16 History Gabapentin [Neurontin] 100 mg PO HS 09/24/16 09/24/16 History Metoprolol Succinate [Toprol XL] 25 mg PO HS 09/24/16 09/24/16 History Allergies Allergy/AdvReac Type Severity Reaction Status Date / Time ondansetron AdvReac Constipatio Verified 09/24/16 15:15 n Physical Exam Vitals: Vital Signs Temp Pulse Pulse Pulse Pulse Pulse Resp 09/25/16 12:00 97.7 F 117 H 18 09/25/16 09:10 97.4 F L 127 H 131 H 123 H 16 09/25/16 04:00 98.5 F 104 H 18 09/25/16 00:00 97.8 F 99 17 09/24/16 20:05 102 H 09/24/16 20:00 97.8 F 102 H 09/24/16 18:29 104 H 09/24/16 18:00 104 H 09/24/16 17:25 97.4 F L 97 09/24/16 17:16 97.4 F L 97 09/24/16 16:18 97.5 F L 97 09/24/16 16:06 103 H 09/24/16 16:05 97 BP BP BP BP Pulse Ox 09/25/16 12:00 151/93 95 09/25/16 09:10 110/74 84/47 135/76 95 09/25/16 04:00 149/91 95 09/25/16 00:00 133/78 95 09/24/16 20:05 89/54 141/79 96 09/24/16 20:00 141/79 96 09/24/16 18:29 09/24/16 18:00 147/95 95 09/24/16 17:25 174/81 97 09/24/16 17:16 174/81 97 09/24/16 16:18 132/64 98 09/24/16 16:06 131/66 09/24/16 16:05 151/73 Intake and Output 09/25/16 09/25/16 09/25/16 06:59 14:59 22:59 Intake Total 800 985 Balance 800 985 Intake: IV 800 500 Sodium Chloride 0.9% 1, 800 000 ml @ 100 mls/hr IV . Q10H ONE Rx#:[id number] Sodium Chloride 0.9% 500 500 ml @ 999 mls/hr IV .Q31M ONE Rx#:[id number] Oral 485 Other: Voiding Method Toilet Bedside Commode Weight 79.7 kg 79.7 kg Patient Weight 09/26/16 06:59 Weight 79.7 kg PHYSICAL EXAMINATION: HEENT: Head is atraumatic, normocephalic. Pupils equal, round. Neck is supple. There is no elevated jugular venous pressure. HEART EXAMINATION: S1 and S2 tachycardic CHEST EXAMINATION: Lungs reveal scattered coarse rhonchi and wheezing throughout. ABDOMEN: Soft, nontender. Bowel sounds are heard. No organomegaly noted. EXTREMITIES: 2+ peripheral pulses with no evidence of peripheral edema and no calf tenderness noted. NEUROLOGIC patient is awake, alert and oriented -3. . Results 09/25/16 08:31 09/25/16 08:34 Cardiac Enzymes 09/25/16 09/25/16 Range/Units 08:34 08:34 AST 20 (17-59) U/L Troponin I 0.433 H* (0.000-0.034) ng/mL CBC 09/25/16 Range/Units 08:31 WBC 10.6 (3.8-10.6) k/uL RBC 2.87 L (4.30-5.90) m/uL Hgb 9.6 L (13.0-17.5) gm/dL Hct 29.0 L (39.0-53.0) % Plt Count 63 L (150-450) k/uL Comprehensive Metabolic Panel 09/25/16 Range/Units 08:34 Sodium 133 L (137-145) mmol/L Potassium 3.8 (3.5-5.1) mmol/L Chloride 101 (98-107) mmol/L Carbon Dioxide 20 L (22-30) mmol/L BUN 42 H (9-20) mg/dL Creatinine 4.34 H (0.66-1.25) mg/dL Glucose 190 H (74-99) mg/dL Calcium 9.0 (8.4-10.2) mg/dL AST 20 (17-59) U/L ALT 16 L (21-72) U/L Alkaline Phosphatase 49 (38-126) U/L Total Protein 5.1 L (6.3-8.2) g/dL Albumin 3.1 L (3.5-5.0) g/dL Current Medications Generic Name Dose Route Start Last Admin Trade Name Freq PRN Reason Stop Dose Admin Allopurinol 100 mg 09/25/16 12:45 09/25/16 13:39 Zyloprim PO 100 mg QAM LAURE Administration Atorvastatin Calcium 10 mg 09/25/16 21:00 Lipitor PO HS [facility] Dexamethasone 20 mg 09/25/16 12:45 Hexadrol PO DIRECTED [facility] Docusate Sodium 100 mg 09/25/16 21:00 Colace PO HS LAURE Enoxaparin Sodium 30 mg 09/25/16 09:00 09/25/16 08:03 Lovenox SQ 30 mg DAILY LAURE Administration Gabapentin 100 mg 09/25/16 21:00 Neurontin PO HS [facility] Lactulose 20 gm 09/25/16 12:45 Cephulac PO TID PRN Constipation Midodrine 10 mg 09/25/16 12:30 09/25/16 11:58 Proamatine PO 10 mg AC-TID LAURE Administration Pantoprazole Sodium 40 mg 09/25/16 13:00 09/25/16 13:39 Protonix PO 40 mg AC-BRKFST LAURE Administration Tamsulosin HCl 0.4 mg 09/25/16 21:00 Flomax PO HS LAURE Trimethoprim/Sulfamethoxazole 1 each 09/26/16 09:00 Bactrim Ss PO MOWEFR LAURE Valacyclovir HCl 500 mg 09/25/16 12:45 09/25/16 13:39 Valtrex PO 500 mg QAM LAURE Administration Intake and Output 09/25/16 09/25/16 09/25/16 06:59 14:59 22:59 Intake Total 800 985 Balance 800 985 Intake: IV 800 500 Sodium Chloride 0.9% 1, 800 000 ml @ 100 mls/hr IV . Q10H [facility] Rx#:[id number] Sodium Chloride 0.9% 500 500 ml @ 999 mls/hr IV .Q31M ONE Rx#:[id number] Oral 485 Other: Voiding Method Toilet Bedside Commode Weight 79.7 kg 79.7 kg Patient Weight 09/26/16 06:59 Weight 79.7 kg 09/25/16 08:31 09/25/16 08:34 EKG Interpretations (text) EKG shows sinus tachycardia with no acute changes. Assessment and Plan Plan: Assessment and plan #1 severe drop in blood pressure during and following dialysis. Rule out Earlham's disease. #2 end-stage renal disease on hemodialysis #3 hypertension #4 hyperlipidemia # 5 multiple myeloma on chemotherapy #6 GERD Plan We will obtain an echocardiogram with Doppler study. We will also obtain a cortisol level to rule out abscess. Recommendation to give midodrine one hour predialysis to less amount of orthostatic hypotension during dialysis. DNP note has been reviewed, I agree with a documented findings and plan of care. Patient was seen and examined.
[2016-09-25] MEDS ORDERED: HEPARIN SODIUM,PORCINE 10,000 UNIT/ML 1 ML VIAL IV ONE (16:24)
[2016-09-25] MEDS ORDERED: HEPARIN SODIUM,PORCINE 5,000 UNIT/ML 1 ML VIAL IV PRN (16:24)
[2016-09-25] MEDS: TAMSULOSIN 0.4 MG CAP.ER.24H PO SCH (17:04)
[2016-09-25] MEDS: HEPARIN SODIUM,PORCINE/D5W PMX 25,000 UNIT in DEXTROSE/WATER 1 500ML.BAG IV SCH (17:04)
[2016-09-25] MEDS ORDERED: HEPARIN SODIUM,PORCINE 5,000 UNIT/ML 1 ML VIAL ONE (18:00)
[2016-09-25] MEDS: DOCUSATE 100 MG CAP PO SCH (21:01)
[2016-09-25] MEDS: GABAPENTIN 100 MG CAP PO SCH (21:02)
[2016-09-25] MEDS: ATORVASTATIN 10 MG TAB PO SCH (21:02)
[2016-09-26] MEDS: MIDODRINE 5 MG TAB PO SCH ×3 (06:36→18:22)
[2016-09-26] MEDS: PANTOPRAZOLE 40 MG TABLET PO SCH (06:36)
[2016-09-26 06:55] LABS: Calcium 8.6 mg/dL (8.4-10.2); Potassium 3.6 mmol/L (3.5-5.1); Total Bilirubin 0.9 mg/dL (0.2-1.3); Total Protein 4.8 g/dL (6.3-8.2)
[2016-09-26 07:05] LABS: Anisocytosis Slight; Basophils % (A) 0 %; CH 33.2; CHCM 32.9; Eosinophils # (A) 0.1 k/uL (0-0.7); Eosinophils % (A) 1 %; HCT 25.9 % (39.0-53.0); HDW 2.32; HGB 8.4 gm/dL (13.0-17.5); Luc # (Auto) 0.09; Luc % (Auto) 1; Lymphocytes # (A) 0.6 k/uL (1.0-4.8); Lymphocytes % (A) 7 %; MCH 32.8 pg (25.0-35.0); MCHC 32.4 g/dL (31.0-37.0); MCV 101.2 fL (80.0-100.0); Macrocytosis Slight; Mean Platelet Volume 10.3; Monocytes # (A) 0.3 k/uL (0-1.0); Monocytes % (A) 4 %; Neutrophils # (A) 7.3 k/uL (1.3-7.7); Neutrophils % (A) 87 %; RBC 2.56 m/uL (4.30-5.90); WBC 8.4 k/uL (3.8-10.6); WBC (Perox) 8.67
[2016-09-26 08:12] LABS: Manual Review Performed
[2016-09-26] MEDS: valACYclovir 500 MG TAB PO SCH (09:10)
[2016-09-26] MEDS: SULFAMETHOX-TMP 400-80MG 1 EACH TAB PO SCH (09:10)
[2016-09-26] MEDS: ALLOPURINOL 100 MG TAB PO SCH (09:10)
--- NOTE | 2016-09-26 10:29 | P.PN ---
Subjective Patient is seen in follow-up for end-stage renal disease. He is maintained on hemodialysis on a Saturday schedule via permacath. He has a peritoneal dialysis catheter in place. Patient presented with generalized weakness and orthostatic hypotension. His standing blood pressure this morning was 77/42. Currently resting in bed. Denies chest pain or shortness of breath. No vomiting or diarrhea. Vital signs are stable. General: The patient appeared well nourished and normally developed. HEENT: Head exam is unremarkable. Neck is without jugular venous distension. LUNGS: Lungs are clear to auscultation and percussion. Breath sounds decreased. HEART: Rate and Rhythm are regular. First and second heart sounds normal. No murmurs, rubs or gallops. ABDOMEN: Abdominal exam reveals normal bowel sounds. Non-tender and non- distended. No evidence of peritonitis. EXTREMITITES: No clubbing, cyanosis, or edema. Objective - Vital Signs Vital signs: Vital Signs Temp 98.5 F 09/26/16 08:00 Pulse 115 H 09/26/16 08:00 Resp 18 09/26/16 08:00 BP 120/69 09/26/16 08:00 Pulse Ox 99 09/26/16 08:00 Intake & Output 09/25/16 09/26/16 09/26/16 18:59 06:59 18:59 Intake Total 1225 464.094 118 Output Total 50 1000 Balance 1175 -535.906 118 Weight 79.7 kg 80.2 kg Intake: IV 500 280 Heparin Sodium,Porcine/ 280 D5w Pmx 25,000 unit In Dextrose/Water 1 500ml. bag @ 18 UNITS/KG/HR 28. 69 mls/hr IV .[id number] [facility] Rx#:[id number] Sodium Chloride 0.9% 500 500 ml @ 999 mls/hr IV .Q31M ONE Rx#:[id number] Intake, IV Titration 184.094 Amount Heparin Sodium,Porcine/ 184.094 D5w Pmx 25,000 unit In Dextrose/Water 1 500ml. bag @ 18 UNITS/KG/HR 28. 69 mls/hr IV .[id number] [facility] Rx#:[id number] Oral 725 118 Output: Urine 50 1000 Straight 1000 Other: Voiding Method Toilet Toilet Bedside Commode # Voids 1 # Bowel Movements 1 - Labs CBC & Chem 7: 09/26/16 06:14 09/26/16 06:14 Labs: Abnormal Lab Results - Last 24 Hours (Table) 09/25/16 09/25/16 09/26/16 Range/Units 08:34 22:43 06:14 RBC 2.56 L (4.30-5.90) m/uL Hgb 8.4 L (13.0-17.5) gm/dL Hct 25.9 L (39.0-53.0) % MCV 101.2 H (80.0-100.0) fL RDW 16.0 H (11.5-15.5) % Plt Count 62 L (150-450) k/uL Lymphocytes # 0.6 L (1.0-4.8) k/uL APTT 166.0 H* (22.0-30.0) sec BUN (9-20) mg/dL Creatinine (0.66-1.25) mg/dL TIBC 239 L (261-462) ug/dL Ferritin 1890 H (18-464) ng/mL Total Protein (6.3-8.2) g/dL Albumin (3.5-5.0) g/dL 09/26/16 09/26/16 Range/Units 06:14 06:14 RBC (4.30-5.90) m/uL Hgb (13.0-17.5) gm/dL Hct (39.0-53.0) % MCV (80.0-100.0) fL RDW (11.5-15.5) % Plt Count (150-450) k/uL Lymphocytes # (1.0-4.8) k/uL APTT 60.8 H (22.0-30.0) sec BUN 23 H (9-20) mg/dL Creatinine 3.10 H (0.66-1.25) mg/dL TIBC (261-462) ug/dL Ferritin (18-464) ng/mL Total Protein 4.8 L (6.3-8.2) g/dL Albumin 2.8 L (3.5-5.0) g/dL Microbiology - Last 24 Hours (Table) 09/24/16 14:34 Blood Culture - Preliminary Blood No Growth after 24 hours Assessment and Plan Plan: Assessment: #1. End-stage renal disease maintained on hemodialysis on a Saturday schedule via permacath. #2. Orthostatic hypotension. Cortisol level noted to be on the lower end. Rule out adrenal insufficiency. #3. Multiple myeloma maintained on chemotherapy. #4. Anemia of chronic kidney disease. Iron replete. #5. Hypovolemic hyponatremia. Improved. #6. Hypokalemia related to poor nutritional status. Magnesium normal. #7. Right IJ thrombus intervened on IV heparin. Plan: Hemodialysis tomorrow without ultrafiltration. Continue Midodrine 10 mg 3 times daily. Check ACTH stimulation test. Pending above results, will start him on Florinef. He has a PD catheter in place. He will transition over to peritoneal dialysis in the next couple of weeks.
[2016-09-26] MEDS ORDERED: POTASSIUM CHLORIDE ER 20 MEQ TAB.ER PO STA (10:40)
[2016-09-26] MEDS ORDERED: COSYNTROPIN 0.25 MG VIAL IVP ONE (12:00)
--- NOTE | 2016-09-26 13:27 | P.GSCN ---
<Celeste Lopez - Last Filed: 09/26/16 13:24> History of Present Illness Consult date: 09/26/16 Reason for Consult: right internal jugular vein thrombus Requesting physician: Fred Lawrence History of present illness: This 70 year old male with a history of multiple myeloma on chemotherapy with the last dose September, end stage renal disease on hemodialysis, hypertension , and hyperlipidemia presented to the emergency room with complaints of dizzyness, weakness, and hypotension which he has had in the past, especially after dialysis. These symptoms have become progressively worse recently. The patient was admitted with orthostatic hypotension. Part of his work up included carotid dopplers with an incidental finding of right internal jugular blood clot. Dr. Garrett was consulted to determine treatment plan for this clot. Review of Systems 14 point review of systems was completed and was negative except as noted. - Cardiovascular Reports as per HPI - Neurological Reports as per HPI Past Medical History Past Medical History: Cancer (multiple myeloma), Dialysis, GERD/Reflux, Hyperlipidemia, Hypertension, Prostate Disorder, Renal Disease Additional Past Medical History / Comment(s): multiple myeloma ,enlarged prostate kidney stones ,diverticulosis, hiatal hernia, on hemodialysis now-, , , ORTHOSTATIC HYPOTENSION History of Any Multi-Drug Resistant Organisms: None Reported Additional Past Surgical History / Comment(s): lithotripsy/laser , fatty tumor removed, colonoscopy,PERMA cath rt upper chest, hemodialysis cath insertion 08/22, beginning of cataracts Past Anesthesia/Blood Transfusion Reactions: No Reported Reaction Past Psychological History: No Psychological Hx Reported Additional Psychological History / Comment(s): lives with augustine in a 2 story home but pt stays on first level.has 2 steps in which to enter home. uses a walker/cane when up.. no pets. pt served in the [employer] when younger. 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 Smoking Status: Never smoker Past Alcohol Use History: Occasional Past Drug Use History: None Reported - Past Family History Sister(s) Family Medical History: Cancer Father Family Medical History: Cancer, Deep Vein Thrombosis (DVT) Medications and Allergies Home Medications Medication Instructions Recorded Confirmed Type Alfuzosin HCl [Alfuzosin HCl ER] 10 mg PO HS 08/18/16 09/24/16 History Allopurinol [Zyloprim] 100 mg PO QAM 08/18/16 09/24/16 History Darifenacin Hydrobromide [Enablex] 15 mg PO HS 08/18/16 09/24/16 History Dexamethasone 20 mg PO DIRECTED 08/18/16 09/24/16 History Omeprazole [PriLOSEC] 20 mg PO QAM 08/18/16 09/24/16 History Simvastatin [Zocor] 20 mg PO HS 08/18/16 09/24/16 History Sulfamethox-Tmp 400-80Mg [Bactrim 1 tab PO MOWEFR 08/18/16 09/24/16 History SS 400-80 mg] valACYclovir [Valtrex] 500 mg PO QAM 08/18/16 09/24/16 History Lactulose 20 gm PO TID PRN 08/20/16 09/24/16 History Docusate [Colace] 100 mg PO HS 09/24/16 09/24/16 History Gabapentin [Neurontin] 100 mg PO HS 09/24/16 09/24/16 History Metoprolol Succinate [Toprol XL] 25 mg PO HS 09/24/16 09/24/16 History Allergies Allergy/AdvReac Type Severity Reaction Status Date / Time ondansetron AdvReac Constipatio Verified 09/24/16 15:15 n Surgical - Exam Vital Signs Temp Pulse Resp BP Pulse Ox 98.1 F 116 H 18 119/61 96 09/24/16 14:22 09/24/16 14:22 09/24/16 14:22 09/24/16 14:22 09/24/16 14:22 - General well developed, well nourished, no distress, no pain - Eyes PERRL, normal ocular movement - ENT no hearing loss - Neck no masses, trachea midline - Respiratory Lung sounds diminished bilaterally. Resp even, non-labored. Currently on room air with oxygen saturation 98%. normal expansion, normal respiratory effort - Cardiovascular Rhythm: regular Heart Sounds: normal: S1, S2 - Abdomen Abdomen: soft, non tender, bowel sounds - Genitourinary Deferred - Rectum Deferred - Neurologic normal coordination, normal sensation - Psychiatric oriented to time, oriented to person, oriented to place, speech is normal, memory intact Results - Labs 09/26/16 06:14 09/26/16 06:14 Abnormal Lab Results - Last 24 Hours (Table) 09/25/16 09/26/16 09/26/16 Range/Units 22:43 06:14 06:14 RBC 2.56 L (4.30-5.90) m/uL Hgb 8.4 L (13.0-17.5) gm/dL Hct 25.9 L (39.0-53.0) % MCV 101.2 H (80.0-100.0) fL RDW 16.0 H (11.5-15.5) % Plt Count 62 L (150-450) k/uL Lymphocytes # 0.6 L (1.0-4.8) k/uL APTT 166.0 H* (22.0-30.0) sec BUN 23 H (9-20) mg/dL Creatinine 3.10 H (0.66-1.25) mg/dL Total Protein 4.8 L (6.3-8.2) g/dL Albumin 2.8 L (3.5-5.0) g/dL 09/26/16 Range/Units 06:14 RBC (4.30-5.90) m/uL Hgb (13.0-17.5) gm/dL Hct (39.0-53.0) % MCV (80.0-100.0) fL RDW (11.5-15.5) % Plt Count (150-450) k/uL Lymphocytes # (1.0-4.8) k/uL APTT 60.8 H (22.0-30.0) sec BUN (9-20) mg/dL Creatinine (0.66-1.25) mg/dL Total Protein (6.3-8.2) g/dL Albumin (3.5-5.0) g/dL Microbiology - Last 24 Hours (Table) 09/24/16 14:34 Blood Culture - Preliminary Blood No Growth after 24 hours Diabetes panel 09/26/16 Range/Units 06:14 Sodium 137 (137-145) mmol/L Potassium 3.6 (3.5-5.1) mmol/L Chloride 103 (98-107) mmol/L Carbon Dioxide 27 (22-30) mmol/L BUN 23 H (9-20) mg/dL Creatinine 3.10 H (0.66-1.25) mg/dL Glucose 89 (74-99) mg/dL Calcium 8.6 (8.4-10.2) mg/dL AST 22 (17-59) U/L ALT 21 (21-72) U/L Alkaline Phosphatase 44 (38-126) U/L Total Protein 4.8 L (6.3-8.2) g/dL Albumin 2.8 L (3.5-5.0) g/dL Calcium panel 09/26/16 Range/Units 06:14 Calcium 8.6 (8.4-10.2) mg/dL Albumin 2.8 L (3.5-5.0) g/dL Pituitary panel 09/26/16 Range/Units 06:14 Sodium 137 (137-145) mmol/L Potassium 3.6 (3.5-5.1) mmol/L Chloride 103 (98-107) mmol/L Carbon Dioxide 27 (22-30) mmol/L BUN 23 H (9-20) mg/dL Creatinine 3.10 H (0.66-1.25) mg/dL Glucose 89 (74-99) mg/dL Calcium 8.6 (8.4-10.2) mg/dL Adrenal panel 09/26/16 Range/Units 06:14 Sodium 137 (137-145) mmol/L Potassium 3.6 (3.5-5.1) mmol/L Chloride 103 (98-107) mmol/L Carbon Dioxide 27 (22-30) mmol/L BUN 23 H (9-20) mg/dL Creatinine 3.10 H (0.66-1.25) mg/dL Glucose 89 (74-99) mg/dL Calcium 8.6 (8.4-10.2) mg/dL Total Bilirubin 0.9 (0.2-1.3) mg/dL AST 22 (17-59) U/L ALT 21 (21-72) U/L Alkaline Phosphatase 44 (38-126) U/L Total Protein 4.8 L (6.3-8.2) g/dL Albumin 2.8 L (3.5-5.0) g/dL - Imaging EKG: image reviewed Additional studies: carotid dopplers, echo reviewed Assessment and Plan (1) Thrombosis of right internal jugular vein Status: Acute (2) Orthostatic hypotension Status: Acute (3) Weakness Status: Acute (4) Multiple myeloma Status: Acute (5) End stage chronic kidney disease Status: Acute Plan: The patient was seen and examined. The chart/diagnostics were reviewed. At this time, the impression is a catheter related jugular vein thrombosis. Our recommended treatment would be to place patient on anticoagulation until the catheter is removed. Thank Dr. Lawrence for the consult. Time with Patient: Greater than 30 <PedroaubreeJesus chatterjeeCoy - Last Filed: 09/27/16 10:19> History of Present Illness History of present illness: GALLERY OR MUSEUM GUIDE note reviewed in detail and accepted. Patient interviewed and examined and concur with above findings. Impression: Patient has an asymptomatic thrombosis in the internal jugular surrounding a permacath dialysis catheter. It was placed only about 6 weeks ago. It is expected that it will be probably removed in the next 4-6 weeks. When peritoneal dialysis catheter has been used for a month. Recommendation: Feel that the safest course of action at this point would be anticoagulation until just before removal of the permacath. If any compensations or contraindications to anticoagulation occur then would remove the permacath when able clinically. I discussed this with Dr. Duarte who concurs. Surgical - Exam Osteopathic Statement: *. No significant issues noted on an osteopathic structural exam other than those noted in the History and Physical/Consult. Vital Signs Temp Pulse Resp BP Pulse Ox 98.1 F 116 H 18 119/61 96 09/24/16 14:22 09/24/16 14:22 09/24/16 14:22 09/24/16 14:22 09/24/16 14:22 Results - Labs 09/27/16 05:35 09/27/16 05:35 Abnormal Lab Results - Last 24 Hours (Table) 09/26/16 09/26/16 09/27/16 Range/Units 23:56 23:56 05:35 RBC 2.46 L (4.30-5.90) m/uL Hgb 8.1 L (13.0-17.5) gm/dL Hct 25.3 L (39.0-53.0) % MCV 102.7 H (80.0-100.0) fL RDW 16.5 H (11.5-15.5) % Plt Count 69 L (150-450) k/uL Neutrophils # 8.2 H (1.3-7.7) k/uL Lymphocytes # 0.6 L (1.0-4.8) k/uL APTT 61.3 H 77.9 H (22.0-30.0) sec Potassium (3.5-5.1) mmol/L BUN (9-20) mg/dL Creatinine (0.66-1.25) mg/dL Total Protein (6.3-8.2) g/dL Albumin (3.5-5.0) g/dL 09/27/16 09/27/16 Range/Units 05:35 05:35 RBC 2.43 L (4.30-5.90) m/uL Hgb 8.0 L (13.0-17.5) gm/dL Hct 25.2 L (39.0-53.0) % MCV 103.4 H (80.0-100.0) fL RDW 16.6 H (11.5-15.5) % Plt Count 68 L (150-450) k/uL Neutrophils # (1.3-7.7) k/uL Lymphocytes # 0.7 L (1.0-4.8) k/uL APTT (22.0-30.0) sec Potassium 3.4 L (3.5-5.1) mmol/L BUN 28 H (9-20) mg/dL Creatinine 3.55 H (0.66-1.25) mg/dL Total Protein 4.7 L (6.3-8.2) g/dL Albumin 2.6 L (3.5-5.0) g/dL Microbiology - Last 24 Hours (Table) 09/24/16 14:34 Blood Culture - Preliminary Blood No Growth after 48 hours Diabetes panel 09/27/16 Range/Units 05:35 Sodium 138 (137-145) mmol/L Potassium 3.4 L (3.5-5.1) mmol/L Chloride 106 (98-107) mmol/L Carbon Dioxide 22 (22-30) mmol/L BUN 28 H (9-20) mg/dL Creatinine 3.55 H (0.66-1.25) mg/dL Glucose 91 (74-99) mg/dL Calcium 8.5 (8.4-10.2) mg/dL AST 24 (17-59) U/L ALT 24 (21-72) U/L Alkaline Phosphatase 44 (38-126) U/L Total Protein 4.7 L (6.3-8.2) g/dL Albumin 2.6 L (3.5-5.0) g/dL Calcium panel 09/27/16 Range/Units 05:35 Calcium 8.5 (8.4-10.2) mg/dL Albumin 2.6 L (3.5-5.0) g/dL Pituitary panel 09/26/16 09/27/16 Range/Units 12:14 05:35 Sodium 138 (137-145) mmol/L Potassium 3.4 L (3.5-5.1) mmol/L Chloride 106 (98-107) mmol/L Carbon Dioxide 22 (22-30) mmol/L BUN 28 H (9-20) mg/dL Creatinine 3.55 H (0.66-1.25) mg/dL Glucose 91 (74-99) mg/dL Calcium 8.5 (8.4-10.2) mg/dL ACTH 21.80 (0.00-45.99) pg/mL Adrenal panel 09/26/16 09/27/16 Range/Units 12:14 05:35 Sodium 138 (137-145) mmol/L Potassium 3.4 L (3.5-5.1) mmol/L Chloride 106 (98-107) mmol/L Carbon Dioxide 22 (22-30) mmol/L BUN 28 H (9-20) mg/dL Creatinine 3.55 H (0.66-1.25) mg/dL Glucose 91 (74-99) mg/dL Calcium 8.5 (8.4-10.2) mg/dL Total Bilirubin 0.7 (0.2-1.3) mg/dL AST 24 (17-59) U/L ALT 24 (21-72) U/L Alkaline Phosphatase 44 (38-126) U/L Total Protein 4.7 L (6.3-8.2) g/dL Albumin 2.6 L (3.5-5.0) g/dL ACTH 21.80 (0.00-45.99) pg/mL
[2016-09-26] MEDS: HEPARIN SODIUM,PORCINE/D5W PMX 25,000 UNIT in DEXTROSE/WATER 1 500ML.BAG IV SCH (15:17)
[2016-09-26] MEDS: DARIFENACIN 15 MG PO SCH ×2 (15:19→20:28)
[2016-09-26] MEDS: ALFUZOSIN ER 10 MG PO SCH ×2 (15:19→20:28)
[2016-09-26] MEDS: DARBEPOETIN ALFA 40 MCG/0.4 ML SYRINGE SQ SCH (15:19)
--- NOTE | 2016-09-26 15:39 | P.PN ---
Subjective Principal diagnosis: orthostatic hypotention Patient is a 70-year-old male patient of [facility] who presented to [facility] emergency room with chief complaints of dizziness and weakness. Patient states that he has been having episodes of orthostatic hypotension, especially after hemodialysis sessions where his blood pressure drops significantly when standing up. His symptoms have been worsening and recently affecting his daily activity due to severe dizziness and weakness he states he was hardly able to stand up. Patient was evaluated in the emergency room, he had significant orthostatic changes, his troponin was also slightly elevated, he was admitted to telemetry floor for further evaluation and treatment. Patient has known history of multiple myeloma he has been receiving chemotherapy his last treatment was on Saturday. Patient also has known history of end-stage renal disease on hemodialysis which he receives through a catheter in the right subclavicular area, he also states that he had a peritoneal catheter placed to a and a half weeks ago as he plans to switch to peritoneal dialysis however he has not started that yet. Objective - Vital Signs Vital signs: Vital Signs Temp 98.5 F 09/26/16 08:00 Pulse 105 H 09/26/16 12:25 Resp 16 09/26/16 12:25 BP 126/76 09/26/16 12:25 Pulse Ox 98 09/26/16 12:25 Intake & Output 09/25/16 09/26/16 09/26/16 18:59 06:59 18:59 Intake Total 1225 464.094 551.906 Output Total 50 1000 Balance 1175 -535.906 551.906 Weight 79.7 kg 80.2 kg Intake: IV 500 280 Heparin Sodium,Porcine/ 280 D5w Pmx 25,000 unit In Dextrose/Water 1 500ml. bag @ 18 UNITS/KG/HR 28. 69 mls/hr IV .[id number] [facility] Rx#:[id number] Sodium Chloride 0.9% 500 500 ml @ 999 mls/hr IV .[id number] [facility] Rx#:[id number] Intake, IV Titration 184.094 315.906 Amount Heparin Sodium,Porcine/ 184.094 315.906 D5w Pmx 25,000 unit In Dextrose/Water 1 500ml. bag @ 18 UNITS/KG/HR 28. 69 mls/hr IV .[id number] [facility] Rx#:[id number] Oral 725 236 Output: Urine 50 1000 Straight 1000 Other: Voiding Method Toilet Toilet Bedside Commode # Voids 1 1 # Bowel Movements 1 1 - Exam In general patient is alert and oriented 3 in no apparent distress HEENT head normocephalic and atraumatic Neck is supple no JVD no goiter no lymphadenopathy Chest exam reveals a few scattered rhonchi no wheezing Cardiac exam reveals regular heart sounds S1 and S2 no gallops no murmurs Abdomen is soft nontender no organomegaly Extremity exam reveals no edema no cyanosis or clubbing - Labs CBC & Chem 7: 09/26/16 06:14 09/26/16 06:14 Labs: Abnormal Lab Results - Last 24 Hours (Table) 09/25/16 09/26/16 09/26/16 Range/Units 22:43 06:14 06:14 RBC 2.56 L (4.30-5.90) m/uL Hgb 8.4 L (13.0-17.5) gm/dL Hct 25.9 L (39.0-53.0) % MCV 101.2 H (80.0-100.0) fL RDW 16.0 H (11.5-15.5) % Plt Count 62 L (150-450) k/uL Lymphocytes # 0.6 L (1.0-4.8) k/uL APTT 166.0 H* (22.0-30.0) sec BUN 23 H (9-20) mg/dL Creatinine 3.10 H (0.66-1.25) mg/dL Total Protein 4.8 L (6.3-8.2) g/dL Albumin 2.8 L (3.5-5.0) g/dL 09/26/16 Range/Units 06:14 RBC (4.30-5.90) m/uL Hgb (13.0-17.5) gm/dL Hct (39.0-53.0) % MCV (80.0-100.0) fL RDW (11.5-15.5) % Plt Count (150-450) k/uL Lymphocytes # (1.0-4.8) k/uL APTT 60.8 H (22.0-30.0) sec BUN (9-20) mg/dL Creatinine (0.66-1.25) mg/dL Total Protein (6.3-8.2) g/dL Albumin (3.5-5.0) g/dL Microbiology - Last 24 Hours (Table) 09/24/16 14:34 Blood Culture - Preliminary Blood No Growth after 24 hours Assessment and Plan Plan: #1 orthostatic hypotension with dizziness and severe weakness #2 end-stage renal disease on hemodialysis, patient plans to switch to peritoneal dialysis, has catheter already inserted #3 underlying history of multiple myeloma currently receiving chemotherapy his last session was last Saturday #4 mild elevation in troponin level without any chest pain At this time patient is admitted to telemetry floor, Carotid doppler revealed evidence of Jugular vein thrombus patient was evaluated by Dr Ross recommendation is to give anticoagulation until catheter is removed cardiology and nephrology consultation were requested possibility of Srikanth disease, checking Cortisol level
[2016-09-26] MEDS: GABAPENTIN 100 MG CAP PO SCH (20:27)
[2016-09-26] MEDS: ATORVASTATIN 10 MG TAB PO SCH (20:28)
[2016-09-26] MEDS: TAMSULOSIN 0.4 MG CAP.ER.24H PO SCH (20:28)
[2016-09-26] MEDS: DOCUSATE 100 MG CAP PO SCH (20:28)
[2016-09-26] MEDS ORDERED: MD COMMUNICATION TO PHARMACY 1 EACH MISC PO SCH ×2 (21:00)
[2016-09-27 00:12] LABS: Anisocytosis Slight; Basophils % (A) 0 %; CH 33.1; CHCM 32.4; Eosinophils # (A) 0.1 k/uL (0-0.7); Eosinophils % (A) 2 %; HCT 25.3 % (39.0-53.0); HDW 2.42; HGB 8.1 gm/dL (13.0-17.5); Luc # (Auto) 0.14; Luc % (Auto) 2; Lymphocytes # (A) 0.6 k/uL (1.0-4.8); Lymphocytes % (A) 6 %; MCH 33.1 pg (25.0-35.0); MCHC 32.2 g/dL (31.0-37.0); MCV 102.7 fL (80.0-100.0); Macrocytosis Moderate; Mean Platelet Volume 9.7; Monocytes # (A) 0.4 k/uL (0-1.0); Monocytes % (A) 4 %; Neutrophils # (A) 8.2 k/uL (1.3-7.7); Neutrophils % (A) 87 %; RBC 2.46 m/uL (4.30-5.90); RDW 16.5 % (11.5-15.5); WBC 9.4 k/uL (3.8-10.6); WBC (Perox) 9.75
[2016-09-27 00:30] LABS: INR 1.1 (<1.1); Partial Thromboplastin Time 61.3 sec (22.0-30.0); Prothrombin Time 11.4 sec (9.0-12.0)
[2016-09-27] MEDS: MIDODRINE 5 MG TAB PO SCH ×3 (06:11→17:26)
[2016-09-27] MEDS: PANTOPRAZOLE 40 MG TABLET PO SCH (06:11)
[2016-09-27] MEDS: HEPARIN SODIUM,PORCINE/D5W PMX 25,000 UNIT in DEXTROSE/WATER 1 500ML.BAG IV SCH (06:35)
--- NOTE | 2016-09-27 07:17 | P.GSCN ---
History of Present Illness Reason for Consult: urine retention History of present illness: 70 yo male on hemodialysis admitted for dizziness, Had problems voiding went into retention for 1000ml. He had the sensation to void. A second attempt to void also failed at [address] Scott for voiding dysfunction for which he has been on uroxatral and enablex. He was off his alpha lucian for two days. Flomax was started . He has an apparent low grade multiple myeloma Review of Systems - Constitutional Reports weakness - Cardiovascular Reports syncope - Genitourinary Reports as per HPI Past Medical History Past Medical History: Cancer (multiple myeloma), Dialysis, GERD/Reflux, Hyperlipidemia, Hypertension, Prostate Disorder, Renal Disease Additional Past Medical History / Comment(s): multiple myeloma ,enlarged prostate kidney stones ,diverticulosis, hiatal hernia, on hemodialysis now-, , , ORTHOSTATIC HYPOTENSION History of Any Multi-Drug Resistant Organisms: None Reported Additional Past Surgical History / Comment(s): lithotripsy/laser , fatty tumor removed, colonoscopy,PERMA cath rt upper chest, hemodialysis cath insertion 08/22, beginning of cataracts Past Anesthesia/Blood Transfusion Reactions: No Reported Reaction Past Psychological History: No Psychological Hx Reported Additional Psychological History / Comment(s): lives with augustine in a 2 story home but pt stays on first level.has 2 steps in which to enter home. uses a walker/cane when up.. no pets. pt served in the [employer] when younger. 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 Smoking Status: Never smoker Past Alcohol Use History: Occasional Past Drug Use History: None Reported - Past Family History Sister(s) Family Medical History: Cancer Father Family Medical History: Cancer, Deep Vein Thrombosis (DVT) Medications and Allergies Home Medications Medication Instructions Recorded Confirmed Type Alfuzosin HCl [Alfuzosin HCl ER] 10 mg PO HS 08/18/16 09/24/16 History Allopurinol [Zyloprim] 100 mg PO QAM 08/18/16 09/24/16 History Darifenacin Hydrobromide [Enablex] 15 mg PO HS 08/18/16 09/24/16 History Dexamethasone 20 mg PO DIRECTED 08/18/16 09/24/16 History Omeprazole [PriLOSEC] 20 mg PO QAM 08/18/16 09/24/16 History Simvastatin [Zocor] 20 mg PO HS 08/18/16 09/24/16 History Sulfamethox-Tmp 400-80Mg [Bactrim 1 tab PO MOWEFR 08/18/16 09/24/16 History SS 400-80 mg] valACYclovir [Valtrex] 500 mg PO QAM 08/18/16 09/24/16 History Lactulose 20 gm PO TID PRN 08/20/16 09/24/16 History Docusate [Colace] 100 mg PO HS 09/24/16 09/24/16 History Gabapentin [Neurontin] 100 mg PO HS 09/24/16 09/24/16 History Metoprolol Succinate [Toprol XL] 25 mg PO HS 09/24/16 09/24/16 History Allergies Allergy/AdvReac Type Severity Reaction Status Date / Time ondansetron AdvReac Constipatio Verified 09/24/16 15:15 n Surgical - Exam Vital Signs Temp Pulse Resp BP Pulse Ox 98.1 F 116 H 18 119/61 96 09/24/16 14:22 09/24/16 14:22 09/24/16 14:22 09/24/16 14:22 09/24/16 14:22 - General no distress - Eyes PERRL - ENT no hearing loss - Neck trachea midline - Respiratory normal expansion, normal respiratory effort - Abdomen Abdomen: soft, non tender - Neurologic normal coordination, normal sensation - Musculoskeletal normal posture - Psychiatric oriented to time, oriented to person, oriented to place, speech is normal, memory intact Results - Labs 09/26/16 23:56 09/26/16 06:14 Abnormal Lab Results - Last 24 Hours (Table) 09/25/16 09/26/16 09/26/16 Range/Units 22:43 06:14 06:14 RBC 2.56 L (4.30-5.90) m/uL Hgb 8.4 L (13.0-17.5) gm/dL Hct 25.9 L (39.0-53.0) % MCV 101.2 H (80.0-100.0) fL RDW 16.0 H (11.5-15.5) % Plt Count 62 L (150-450) k/uL Lymphocytes # 0.6 L (1.0-4.8) k/uL APTT 166.0 H* (22.0-30.0) sec BUN 23 H (9-20) mg/dL Creatinine 3.10 H (0.66-1.25) mg/dL Total Protein 4.8 L (6.3-8.2) g/dL Albumin 2.8 L (3.5-5.0) g/dL 09/26/16 Range/Units 06:14 RBC (4.30-5.90) m/uL Hgb (13.0-17.5) gm/dL Hct (39.0-53.0) % MCV (80.0-100.0) fL RDW (11.5-15.5) % Plt Count (150-450) k/uL Lymphocytes # (1.0-4.8) k/uL APTT 60.8 H (22.0-30.0) sec BUN (9-20) mg/dL Creatinine (0.66-1.25) mg/dL Total Protein (6.3-8.2) g/dL Albumin (3.5-5.0) g/dL Microbiology - Last 24 Hours (Table) 09/24/16 14:34 Blood Culture - Preliminary Blood No Growth after 48 hours Diabetes panel 09/26/16 Range/Units 06:14 Sodium 137 (137-145) mmol/L Potassium 3.6 (3.5-5.1) mmol/L Chloride 103 (98-107) mmol/L Carbon Dioxide 27 (22-30) mmol/L BUN 23 H (9-20) mg/dL Creatinine 3.10 H (0.66-1.25) mg/dL Glucose 89 (74-99) mg/dL Calcium 8.6 (8.4-10.2) mg/dL AST 22 (17-59) U/L ALT 21 (21-72) U/L Alkaline Phosphatase 44 (38-126) U/L Total Protein 4.8 L (6.3-8.2) g/dL Albumin 2.8 L (3.5-5.0) g/dL Calcium panel 09/26/16 Range/Units 06:14 Calcium 8.6 (8.4-10.2) mg/dL Albumin 2.8 L (3.5-5.0) g/dL Pituitary panel 09/26/16 Range/Units 06:14 Sodium 137 (137-145) mmol/L Potassium 3.6 (3.5-5.1) mmol/L Chloride 103 (98-107) mmol/L Carbon Dioxide 27 (22-30) mmol/L BUN 23 H (9-20) mg/dL Creatinine 3.10 H (0.66-1.25) mg/dL Glucose 89 (74-99) mg/dL Calcium 8.6 (8.4-10.2) mg/dL Adrenal panel 09/26/16 Range/Units 06:14 Sodium 137 (137-145) mmol/L Potassium 3.6 (3.5-5.1) mmol/L Chloride 103 (98-107) mmol/L Carbon Dioxide 27 (22-30) mmol/L BUN 23 H (9-20) mg/dL Creatinine 3.10 H (0.66-1.25) mg/dL Glucose 89 (74-99) mg/dL Calcium 8.6 (8.4-10.2) mg/dL Total Bilirubin 0.9 (0.2-1.3) mg/dL AST 22 (17-59) U/L ALT 21 (21-72) U/L Alkaline Phosphatase 44 (38-126) U/L Total Protein 4.8 L (6.3-8.2) g/dL Albumin 2.8 L (3.5-5.0) g/dL Assessment and Plan Plan: Impression: Urine retention possibly secondary t being off his medication during the initial hospitalization. Renal failure on dialysis. Hypotension due to dialysis possibly aggravated by alpha lucian.multiple myeloma Recommendations; I will stop the flomax and enablex Iwill restart his uroxatral He should be given another voiding trial in 48 hours
[2016-09-27 08:41] LABS: Anisocytosis Slight; Basophils % (A) 0 %; CH 33.1; CHCM 32.2; Eosinophils # (A) 0.2 k/uL (0-0.7); Eosinophils % (A) 2 %; HCT 25.2 % (39.0-53.0); HDW 2.37; Luc # (Auto) 0.09; Luc % (Auto) 1; Lymphocytes # (A) 0.7 k/uL (1.0-4.8); Lymphocytes % (A) 9 %; MCH 33.1 pg (25.0-35.0); MCV 103.4 fL (80.0-100.0); Macrocytosis Moderate; Mean Platelet Volume 10.1; Monocytes # (A) 0.3 k/uL (0-1.0); Monocytes % (A) 4 %; Neutrophils % (A) 83 %; RBC 2.43 m/uL (4.30-5.90); RDW 16.6 % (11.5-15.5); WBC 7.2 k/uL (3.8-10.6); WBC (Perox) 7.32
[2016-09-27 08:55] LABS: Calcium 8.5 mg/dL (8.4-10.2); Potassium 3.4 mmol/L (3.5-5.1); Total Bilirubin 0.7 mg/dL (0.2-1.3); Total Protein 4.7 g/dL (6.3-8.2)
[2016-09-27] MEDS ORDERED: TAMSULOSIN 0.4 MG CAP.ER.24H PO SCH (09:00)
[2016-09-27] MEDS: ALLOPURINOL 100 MG TAB PO SCH (09:03)
[2016-09-27] MEDS: valACYclovir 500 MG TAB PO SCH (09:03)
[2016-09-27] MEDS ORDERED: POTASSIUM CHLORIDE ER 20 MEQ TAB.ER PO STA (09:12)
--- NOTE | 2016-09-27 09:17 | P.PN ---
Subjective Patient is seen in follow-up for end-stage renal disease. He is maintained on hemodialysis on a Saturday schedule via permacath. He has a peritoneal dialysis catheter in place. Patient presented with generalized weakness and orthostatic hypotension. His standing blood pressure this morning was in the systolic 80s. Currently resting in bed. Denies chest pain or shortness of breath. No vomiting or diarrhea. He's also noted to have a right IJ clot for which she is on anticoagulation at this time. He also has a Jimenez catheter in place for urinary retention. Vital signs are stable. General: The patient appeared well nourished and normally developed. HEENT: Head exam is unremarkable. Neck is without jugular venous distension. LUNGS: Lungs are clear to auscultation and percussion. Breath sounds decreased. HEART: Rate and Rhythm are regular. First and second heart sounds normal. No murmurs, rubs or gallops. ABDOMEN: Abdominal exam reveals normal bowel sounds. Non-tender and non- distended. No evidence of peritonitis. EXTREMITITES: No clubbing, cyanosis, or edema. Objective - Vital Signs Vital signs: Vital Signs Temp 97 F L 09/27/16 04:00 Pulse 111 H 09/27/16 08:00 Resp 16 09/27/16 08:00 BP 147/82 09/27/16 08:00 Pulse Ox 97 09/27/16 08:00 Intake & Output 09/26/16 09/27/16 09/27/16 18:59 06:59 18:59 Intake Total 788.906 605.823 418 Output Total 725 Balance 788.906 -119.177 418 Weight 81.2 kg Intake: IV 240 Heparin Sodium,Porcine/ 240 D5w Pmx 25,000 unit In Dextrose/Water 1 500ml. bag @ 18 UNITS/KG/HR 28. 69 mls/hr IV .[id number] [facility] Rx#:[id number] Intake, IV Titration 315.906 365.823 Amount Heparin Sodium,Porcine/ 315.906 365.823 D5w Pmx 25,000 unit In Dextrose/Water 1 500ml. bag @ 18 UNITS/KG/HR 28. 69 mls/hr IV .[id number] [facility] Rx#:[id number] Oral 473 418 Output: Urine 725 Uretheral (Jimenez) 725 Other: Voiding Method Toilet Indwelling Catheter # Voids 1 # Bowel Movements 1 - Labs CBC & Chem 7: 09/27/16 05:35 09/27/16 05:35 Labs: Abnormal Lab Results - Last 24 Hours (Table) 09/26/16 09/26/16 09/27/16 Range/Units 23:56 23:56 05:35 RBC 2.46 L (4.30-5.90) m/uL Hgb 8.1 L (13.0-17.5) gm/dL Hct 25.3 L (39.0-53.0) % MCV 102.7 H (80.0-100.0) fL RDW 16.5 H (11.5-15.5) % Plt Count 69 L (150-450) k/uL Neutrophils # 8.2 H (1.3-7.7) k/uL Lymphocytes # 0.6 L (1.0-4.8) k/uL APTT 61.3 H 77.9 H (22.0-30.0) sec Potassium (3.5-5.1) mmol/L BUN (9-20) mg/dL Creatinine (0.66-1.25) mg/dL Total Protein (6.3-8.2) g/dL Albumin (3.5-5.0) g/dL 09/27/16 09/27/16 Range/Units 05:35 05:35 RBC 2.43 L (4.30-5.90) m/uL Hgb 8.0 L (13.0-17.5) gm/dL Hct 25.2 L (39.0-53.0) % MCV 103.4 H (80.0-100.0) fL RDW 16.6 H (11.5-15.5) % Plt Count 68 L (150-450) k/uL Neutrophils # (1.3-7.7) k/uL Lymphocytes # 0.7 L (1.0-4.8) k/uL APTT (22.0-30.0) sec Potassium 3.4 L (3.5-5.1) mmol/L BUN 28 H (9-20) mg/dL Creatinine 3.55 H (0.66-1.25) mg/dL Total Protein 4.7 L (6.3-8.2) g/dL Albumin 2.6 L (3.5-5.0) g/dL Microbiology - Last 24 Hours (Table) 09/24/16 14:34 Blood Culture - Preliminary Blood No Growth after 48 hours Assessment and Plan Plan: Assessment: #1. End-stage renal disease maintained on hemodialysis on a Saturday schedule via permacath. #2. Orthostatic hypotension. Cortisol level noted to be on the lower end. ACTH stimulation test was done on September 26 and his cortisol level did go from baseline 11 up to 38 post stimulation. #3. Multiple myeloma maintained on chemotherapy. #4. Anemia of chronic kidney disease. Iron replete. #5. Hypovolemic hyponatremia. Resolved. #6. Hypokalemia related to poor nutritional status. Magnesium normal. #7. Right IJ thrombus intervened on IV heparin. #8. Urinary retention status post Jimenez catheter placement. Urology following. Plan: Hemodialysis today without ultrafiltration. Continue Midodrine 10 mg 3 times daily. Start Florinef 0.1 mg daily. Repeat orthostatics this evening. He has a PD catheter in place. He will transition over to peritoneal dialysis in the next couple of weeks.
[2016-09-27] MEDS: FLUDROCORTISONE 0.1 MG TAB PO SCH (09:56)
--- NOTE | 2016-09-27 12:44 | P.PN ---
Subjective orthostatic hypotention Patient is a 70-year-old male patient of [facility] who presented to [facility] emergency room with chief complaints of dizziness and weakness. Patient states that he has been having episodes of orthostatic hypotension, especially after hemodialysis sessions where his blood pressure drops significantly when standing up. His symptoms have been worsening and recently affecting his daily activity due to severe dizziness and weakness he states he was hardly able to stand up. Patient was evaluated in the emergency room, he had significant orthostatic changes, his troponin was also slightly elevated, he was admitted to telemetry floor for further evaluation and treatment. Patient has known history of multiple myeloma he has been receiving chemotherapy his last treatment was on Saturday. Patient also has known history of end-stage renal disease on hemodialysis which he receives through a catheter in the right subclavicular area, he also states that he had a peritoneal catheter placed to a and a half weeks ago as he plans to switch to peritoneal dialysis however he has not started that yet. 09/27/2016 patient is currently lying in bed comfortably. Yesterday he had evidence of urinary retention. Urology was consulted and Jimenez catheter had to be inserted. It was atraumatic insertion of the catheter. Now he has evidence of significant hematuria. Denies any nausea or vomiting. Denies any bowel movement changes Objective - Vital Signs Vital signs: Vital Signs Temp 97 F L 09/27/16 04:00 Pulse 111 H 09/27/16 08:00 Resp 16 09/27/16 09:00 BP 147/82 09/27/16 08:00 Pulse Ox 97 09/27/16 08:00 Intake & Output 09/26/16 09/27/16 09/27/16 18:59 06:59 18:59 Intake Total 788.906 605.823 418 Output Total 725 Balance 788.906 -119.177 418 Weight 81.2 kg Intake: IV 240 Heparin Sodium,Porcine/ 240 D5w Pmx 25,000 unit In Dextrose/Water 1 500ml. bag @ 18 UNITS/KG/HR 28. 69 mls/hr IV .[id number] [facility] Rx#:[id number] Intake, IV Titration 315.906 365.823 Amount Heparin Sodium,Porcine/ 315.906 365.823 D5w Pmx 25,000 unit In Dextrose/Water 1 500ml. bag @ 18 UNITS/KG/HR 28. 69 mls/hr IV .[id number] [facility] Rx#:[id number] Oral 473 [id number] Output: Urine 725 Uretheral (Jimenez) 725 Other: Voiding Method Toilet Indwelling Catheter Indwelling Catheter # Voids 1 # Bowel Movements 1 - Exam Head normocephalic Neck supple Lungs clear to auscultation bilaterally no wheezing or crackles Heart regular rate and rhythm S1-S2, no rub or gallop Abdomen is soft nontender nondistended positive bowel sounds no hepatosplenomegaly Extremities no edema Neuro alert and orientated to 3 - Labs CBC & Chem 7: 09/27/16 05:35 09/27/16 05:35 Labs: Abnormal Lab Results - Last 24 Hours (Table) 09/26/16 09/26/16 09/27/16 Range/Units 23:56 23:56 05:35 RBC 2.46 L (4.30-5.90) m/uL Hgb 8.1 L (13.0-17.5) gm/dL Hct 25.3 L (39.0-53.0) % MCV 102.7 H (80.0-100.0) fL RDW 16.5 H (11.5-15.5) % Plt Count 69 L (150-450) k/uL Neutrophils # 8.2 H (1.3-7.7) k/uL Lymphocytes # 0.6 L (1.0-4.8) k/uL APTT 61.3 H 77.9 H (22.0-30.0) sec Potassium (3.5-5.1) mmol/L BUN (9-20) mg/dL Creatinine (0.66-1.25) mg/dL Total Protein (6.3-8.2) g/dL Albumin (3.5-5.0) g/dL 09/27/16 09/27/16 Range/Units 05:35 05:35 RBC 2.43 L (4.30-5.90) m/uL Hgb 8.0 L (13.0-17.5) gm/dL Hct 25.2 L (39.0-53.0) % MCV 103.4 H (80.0-100.0) fL RDW 16.6 H (11.5-15.5) % Plt Count 68 L (150-450) k/uL Neutrophils # (1.3-7.7) k/uL Lymphocytes # 0.7 L (1.0-4.8) k/uL APTT (22.0-30.0) sec Potassium 3.4 L (3.5-5.1) mmol/L BUN 28 H (9-20) mg/dL Creatinine 3.55 H (0.66-1.25) mg/dL Total Protein 4.7 L (6.3-8.2) g/dL Albumin 2.6 L (3.5-5.0) g/dL Microbiology - Last 24 Hours (Table) 09/24/16 14:34 Blood Culture - Preliminary Blood No Growth after 48 hours Assessment and Plan Plan: 1. Orthostatic hypotension during dialysis. Still having orthostatic hypotension on morning vitals. Cortisol increased from 11 up to 38 poststimulation. Nephrology has added Florinef. Case discussed with Dr. Salcedo he is recommending patient follow-up with endocrinology outpatient. Orthostatics will be repeated this evening. continue Midodrin 2. End-stage renal disease on hemodialysis Saturday via permacath. Patient will be starting peritoneal dialysis in about a month and at that time the permacatheter can be removed. 3. Multiple myeloma on chemotherapy. Oncology evaluate patient today 4. Anemia of chronic kidney disease 5. Hypovolemic hyponatremia resolved 6. Right IJ thrombus evaluated by vascular surgery they had recommended IV heparin. Case discussed with hematology due to patient's hematuria they're planning on discontinuing the IV heparin. When the hematuria has improved they' re planning on starting patient on Eliquis until the permacatheter can be removed 7. Urinary retention status post Jimenez catheter placement. Urology is following. Urology has adjusted medications discontinued Flomax and enablex. continued Uroxatral 8. Hematuria secondary to Traumatic Jimenez catheter insertion. Monitor CBC I performed an examination of the patient and discussed their management with the physician Overseamer. I have reviewed the Physician Overseamer's notes and agree with the documented findings and plan of care
[2016-09-27 13:25] LABS: Anisocytosis Slight; CH 33.5; CHCM 32.3; HCT 25.1 % (39.0-53.0); HDW 2.35; HGB 8.3 gm/dL (13.0-17.5); MCH 34.3 pg (25.0-35.0); MCHC 32.9 g/dL (31.0-37.0); MCV 104.2 fL (80.0-100.0); Macrocytosis Moderate; Mean Platelet Volume 9.3; RBC 2.41 m/uL (4.30-5.90); RDW 16.8 % (11.5-15.5); WBC 8.6 k/uL (3.8-10.6)
--- NOTE | 2016-09-27 14:33 | P.CONS ---
History of Present Illness - Reason for Consult Consult date: 09/27/16 Right IJ thrombus, secondary to dialysis catheter Requesting physician: Fred Lawrence - Chief Complaint weakness, dizzy - History of Present Illness Mr. Earl is a pleasant pt of Dr. 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 Labs on 04/15/15 revealed a possible monoclonal protein in the urine. Additional labs were done which did reveal increase kappa light chains at around 40 mg/dl with k/l ratio markedly elevated at 38.8, bone marrow on 06/15/15 revealed 10-15% involvement of the marrow, FISH revealed overall favorable cytogenetics, with CCND1/IGH rearrangement and 13 del, no other unfavorable rearrangements, bone survey did not show any definite lytic lesions. Close observation was felt appropriate as pt did not appear to have any end organ damage, [facility] recommended the same. He had a kidney biopsy on 04/30/16 revealing kappa chain deposition so, based on this, active treatment was recommended. He was then started on Velcade and decadron, and is s/p 4 cycles, cycle 4 was delayed for a few weeks due to progressive weakness as pt was beginning dialysis. Pt was having significant difficulty at home with dizziness and hypotension. He denied fever, oral irritation, nausea or vomiting, indigestion, abd pain, acute changes in bowel habits, swelling or bone pain. He had a traumatic solares catheter insertion with significant hematuria that persists. Review of Systems All systems: negative Constitutional: Reports as per HPI Past Medical History Past Medical History: Cancer (multiple myeloma), Dialysis, GERD/Reflux, Hyperlipidemia, Hypertension, Prostate Disorder, Renal Disease Additional Past Medical History / Comment(s): multiple myeloma ,enlarged prostate kidney stones ,diverticulosis, hiatal hernia, on hemodialysis now-, , , ORTHOSTATIC HYPOTENSION History of Any Multi-Drug Resistant Organisms: None Reported Additional Past Surgical History / Comment(s): lithotripsy/laser , fatty tumor removed, colonoscopy,PERMA cath rt upper chest, hemodialysis cath insertion 08/22, beginning of cataracts Past Anesthesia/Blood Transfusion Reactions: No Reported Reaction Past Psychological History: No Psychological Hx Reported Additional Psychological History / Comment(s): lives with augustine in a 2 story home but pt stays on first level.has 2 steps in which to enter home. uses a walker/cane when up.. no pets. 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 Smoking Status: Never smoker Past Alcohol Use History: Occasional Past Drug Use History: None Reported - Past Family History Sister(s) Family Medical History: Cancer Father Family Medical History: Cancer, Deep Vein Thrombosis (DVT) Medications and Allergies Home Medications Medication Instructions Recorded Confirmed Type Alfuzosin HCl [Alfuzosin HCl ER] 10 mg PO HS 08/18/16 09/24/16 History Allopurinol [Zyloprim] 100 mg PO QAM 08/18/16 09/24/16 History Darifenacin Hydrobromide [Enablex] 15 mg PO HS 08/18/16 09/24/16 History Dexamethasone 20 mg PO DIRECTED 08/18/16 09/24/16 History Omeprazole [PriLOSEC] 20 mg PO QA 08/18/16 09/24/16 History Simvastatin [Zocor] 20 mg PO HS 08/18/16 09/24/16 History Sulfamethox-Tmp 400-80Mg [Bactrim 1 tab PO MOWEFR 08/18/16 09/24/16 History SS 400-80 mg] valACYclovir [Valtrex] 500 mg PO QA 08/18/16 09/24/16 History Lactulose 20 gm PO TID PRN 08/20/16 09/24/16 History Docusate [Colace] 100 mg PO HS 09/24/16 09/24/16 History Gabapentin [Neurontin] 100 mg PO HS 09/24/16 09/24/16 History Metoprolol Succinate [Toprol XL] 25 mg PO HS 09/24/16 09/24/16 History Allergies Allergy/AdvReac Type Severity Reaction Status Date / Time ondansetron AdvReac Constipatio Verified 09/24/16 15:15 n Physical Exam Vitals: Vital Signs Temp Pulse Pulse Pulse Pulse Resp BP 09/27/16 12:00 102 H 12 139/78 09/27/16 09:00 16 09/27/16 08:00 120 H 131 H 111 H 16 108/66 09/27/16 04:00 97 F L 84 18 05/18/17 00:00 87 18 09/26/16 20:00 97.8 F 97 18 09/26/16 18:02 96.8 F L 123 H 18 129/71 09/26/16 17:24 16 BP BP Pulse Ox 09/27/16 12:00 98 09/27/16 09:00 09/27/16 08:00 80/46 147/82 97 09/27/16 04:00 140/70 96 09/27/16 00:00 145/67 95 09/26/16 20:00 153/79 94 L 09/26/16 18:02 97 09/26/16 17:24 Intake and Output 09/26/16 09/27/16 09/27/16 22:59 06:59 14:59 Intake Total 552.906 605.823 418 Output Total 725 Balance 552.906 -119.177 418 Intake: IV 240 Heparin Sodium,Porcine/ 240 D5w Pmx 25,000 unit In Dextrose/Water 1 500ml. bag @ 18 UNITS/KG/HR 28. 69 mls/hr IV .[id number] [facility] Rx#:[id number] Intake, IV Titration 315.906 365.823 Amount Heparin Sodium,Porcine/ 315.906 365.823 D5w Pmx 25,000 unit In Dextrose/Water 1 500ml. bag @ 18 UNITS/KG/HR 28. 69 mls/hr IV .[id number] [facility] Rx#:[id number] Oral 237 418 Output: Urine 725 Uretheral (Solares) 725 Other: Voiding Method Toilet Indwelling Catheter Indwelling Catheter # Voids 1 # Bowel Movements 1 Weight 81.2 kg 81.2 kg Patient Weight 09/28/16 06:59 Weight 81.2 kg - Constitutional General appearance: average body habitus, cooperative, no acute distress - EENT Eyes: EOMI, PERRLA, normal appearance ENT: hearing grossly normal, normal oropharynx - Neck right neck swelling is visible - Respiratory Respiratory: bilateral: CTA - Cardiovascular Heart sounds: normal: S1, S2 leg Peripheral Edema: bilateral: None - Gastrointestinal General gastrointestinal: no absent bowel sounds, no decreased bowel sounds, no distended, no hepatomegaly, no hyperactive bowel sounds, normal bowel sounds, no organomegaly, no rigid, no scaphoid, soft, no splenomegaly, no tenderness, no umbilical hernia, no ventral hernia - Genitourinary solares collection device filled with dark red bloody urine, blood noted on glans and meatus - Integumentary Integumentary: normal - Neurologic Neurologic: CNII-XII intact - Musculoskeletal Musculoskeletal: strength equal bilaterally - Psychiatric Psychiatric: A&O x's 3, appropriate affect, intact judgment & insight Results CBC & Chem 7: 09/27/16 13:00 09/27/16 05:35 Labs: Abnormal Lab Results - Last 24 Hours (Table) 09/26/16 09/26/16 09/27/16 Range/Units 23:56 23:56 05:35 RBC 2.46 L (4.30-5.90) m/uL Hgb 8.1 L (13.0-17.5) gm/dL Hct 25.3 L (39.0-53.0) % MCV 102.7 H (80.0-100.0) fL RDW 16.5 H (11.5-15.5) % Plt Count 69 L (150-450) k/uL Neutrophils # 8.2 H (1.3-7.7) k/uL Lymphocytes # 0.6 L (1.0-4.8) k/uL APTT 61.3 H 77.9 H (22.0-30.0) sec Potassium (3.5-5.1) mmol/L BUN (9-20) mg/dL Creatinine (0.66-1.25) mg/dL Total Protein (6.3-8.2) g/dL Albumin (3.5-5.0) g/dL 09/27/16 09/27/16 09/27/16 Range/Units 05:35 05:35 13:00 RBC 2.43 L 2.41 L (4.30-5.90) m/uL Hgb 8.0 L 8.3 L (13.0-17.5) gm/dL Hct 25.2 L 25.1 L (39.0-53.0) % MCV 103.4 H 104.2 H (80.0-100.0) fL RDW 16.6 H 16.8 H (11.5-15.5) % Plt Count 68 L 84 L (150-450) k/uL Neutrophils # (1.3-7.7) k/uL Lymphocytes # 0.7 L (1.0-4.8) k/uL APTT (22.0-30.0) sec Potassium 3.4 L (3.5-5.1) mmol/L BUN 28 H (9-20) mg/dL Creatinine 3.55 H (0.66-1.25) mg/dL Total Protein 4.7 L (6.3-8.2) g/dL Albumin 2.6 L (3.5-5.0) g/dL Microbiology - Last 24 Hours (Table) 09/24/16 14:34 Blood Culture - Preliminary Blood No Growth after 48 hours Venous US: report reviewed Assessment and Plan (1) End stage chronic kidney disease Narrative/Plan: Nephrology following, pt is preparing for peritoneal dialysis, he continues with dialysis as directed by Nephrology for now via IJ permacatheter. Status: Chronic (2) Multiple myeloma Narrative/Plan: Pt has had 4 treatments and tolerated them rather well. He is on his week off, treatment will be delayed if necessary for pt to recover. Status: Chronic (3) Orthostatic hypotension Narrative/Plan: Dr. Whitt discussed case with Nephrology, defer management of the same. Status: Acute (4) Thrombosis of right internal jugular vein Narrative/Plan: With severe hematuria heparin drip has been held, catheter related thrombus is noted, anticoagulation will be resumed once hematuria has improved, CBC monitoring Status: Acute
[2016-09-27] MEDS ORDERED: AMIODARONE 200 MG TAB PO SCH (16:40)
--- NOTE | 2016-09-27 17:28 | P.GSCN ---
History of Present Illness Consult date: 09/27/16 Reason for Consult: P cath History of present illness: Patient hospitalized with orthostatic hypotension. He was found to have a DVT at the site of his hemodialysis catheter. He is well known to our service. He underwent a peritoneal dialysis catheter insertion proximally 3 weeks ago. During one of his recent flushes he was noted to have swelling at the incision site. For that reason no further usage of the tube has been performed. The patient has no abdominal pain. He has multiple other medical issues going on simultaneously. We were asked to evaluate the PD catheter. Review of Systems The patient denies any acute changes in his vision or hearing, no dysphagia or odynophagia, no chest pain or shortness of breath, no dysuria or hematuria, no headache, no runny nose, no rectal bleeding or melena, no unexplained weight loss Past Medical History Past Medical History: Cancer (multiple myeloma), Dialysis, GERD/Reflux, Hyperlipidemia, Hypertension, Prostate Disorder, Renal Disease Additional Past Medical History / Comment(s): multiple myeloma ,enlarged prostate kidney stones ,diverticulosis, hiatal hernia, on hemodialysis now-, , , ORTHOSTATIC HYPOTENSION History of Any Multi-Drug Resistant Organisms: None Reported Additional Past Surgical History / Comment(s): lithotripsy/laser , fatty tumor removed, colonoscopy,PERMA cath rt upper chest, hemodialysis cath insertion 08/22, beginning of cataracts Past Anesthesia/Blood Transfusion Reactions: No Reported Reaction Past Psychological History: No Psychological Hx Reported Additional Psychological History / Comment(s): lives with augustine in a 2 story home but pt stays on first level.has 2 steps in which to enter home. uses a walker/cane when up.. no pets. 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 Smoking Status: Never smoker Past Alcohol Use History: Occasional Past Drug Use History: None Reported - Past Family History Sister(s) Family Medical History: Cancer Father Family Medical History: Cancer, Deep Vein Thrombosis (DVT) Medications and Allergies Home Medications Medication Instructions Recorded Confirmed Type Alfuzosin HCl [Alfuzosin HCl ER] 10 mg PO HS 08/18/16 09/24/16 History Allopurinol [Zyloprim] 100 mg PO QAM 08/18/16 09/24/16 History Darifenacin Hydrobromide [Enablex] 15 mg PO HS 08/18/16 09/24/16 History Dexamethasone 20 mg PO DIRECTED 08/18/16 09/24/16 History Omeprazole [PriLOSEC] 20 mg PO QAM 08/18/16 09/24/16 History Simvastatin [Zocor] 20 mg PO HS 08/18/16 09/24/16 History Sulfamethox-Tmp 400-80Mg [Bactrim 1 tab PO MOWEFR 08/18/16 09/24/16 History SS 400-80 mg] valACYclovir [Valtrex] 500 mg PO QAM 08/18/16 09/24/16 History Lactulose 20 gm PO TID PRN 08/20/16 09/24/16 History Docusate [Colace] 100 mg PO HS 09/24/16 09/24/16 History Gabapentin [Neurontin] 100 mg PO HS 09/24/16 09/24/16 History Metoprolol Succinate [Toprol XL] 25 mg PO HS 09/24/16 09/24/16 History Allergies Allergy/AdvReac Type Severity Reaction Status Date / Time ondansetron AdvReac Constipatio Verified 09/24/16 15:15 n Surgical - Exam Vital Signs Temp Pulse Resp BP Pulse Ox 98.1 F 116 H 18 119/61 96 09/24/16 14:22 09/24/16 14:22 09/24/16 14:22 09/24/16 14:22 09/24/16 14:22 Physical exam: General: Well-developed, well-nourished HEENT: Normocephalic, sclerae nonicteric Abdomen: Nontender, nondistended, incision clean and dry without swelling Extremities: Extensive edema Neuro: Alert and oriented Results - Labs 09/27/16 13:00 09/27/16 05:35 Abnormal Lab Results - Last 24 Hours (Table) 09/26/16 09/26/16 09/27/16 Range/Units 23:56 23:56 05:35 RBC 2.46 L (4.30-5.90) m/uL Hgb 8.1 L (13.0-17.5) gm/dL Hct 25.3 L (39.0-53.0) % MCV 102.7 H (80.0-100.0) fL RDW 16.5 H (11.5-15.5) % Plt Count 69 L (150-450) k/uL Neutrophils # 8.2 H (1.3-7.7) k/uL Lymphocytes # 0.6 L (1.0-4.8) k/uL APTT 61.3 H 77.9 H (22.0-30.0) sec Potassium (3.5-5.1) mmol/L BUN (9-20) mg/dL Creatinine (0.66-1.25) mg/dL Total Protein (6.3-8.2) g/dL Albumin (3.5-5.0) g/dL 09/27/16 09/27/16 09/27/16 Range/Units 05:35 05:35 13:00 RBC 2.43 L (4.30-5.90) m/uL Hgb 8.0 L (13.0-17.5) gm/dL Hct 25.2 L (39.0-53.0) % MCV 103.4 H (80.0-100.0) fL RDW 16.6 H (11.5-15.5) % Plt Count 68 L (150-450) k/uL Neutrophils # (1.3-7.7) k/uL Lymphocytes # 0.7 L (1.0-4.8) k/uL APTT >200.0 H* (22.0-30.0) sec Potassium 3.4 L (3.5-5.1) mmol/L BUN 28 H (9-20) mg/dL Creatinine 3.55 H (0.66-1.25) mg/dL Total Protein 4.7 L (6.3-8.2) g/dL Albumin 2.6 L (3.5-5.0) g/dL 09/27/16 Range/Units 13:00 RBC 2.41 L (4.30-5.90) m/uL Hgb 8.3 L (13.0-17.5) gm/dL Hct 25.1 L (39.0-53.0) % MCV 104.2 H (80.0-100.0) fL RDW 16.8 H (11.5-15.5) % Plt Count 84 L (150-450) k/uL Neutrophils # (1.3-7.7) k/uL Lymphocytes # (1.0-4.8) k/uL APTT (22.0-30.0) sec Potassium (3.5-5.1) mmol/L BUN (9-20) mg/dL Creatinine (0.66-1.25) mg/dL Total Protein (6.3-8.2) g/dL Albumin (3.5-5.0) g/dL Microbiology - Last 24 Hours (Table) 09/24/16 14:34 Blood Culture - Preliminary Blood No Growth after 72 hours Diabetes panel 09/27/16 Range/Units 05:35 Sodium 138 (137-145) mmol/L Potassium 3.4 L (3.5-5.1) mmol/L Chloride 106 (98-107) mmol/L Carbon Dioxide 22 (22-30) mmol/L BUN 28 H (9-20) mg/dL Creatinine 3.55 H (0.66-1.25) mg/dL Glucose 91 (74-99) mg/dL Calcium 8.5 (8.4-10.2) mg/dL AST 24 (17-59) U/L ALT 24 (21-72) U/L Alkaline Phosphatase 44 (38-126) U/L Total Protein 4.7 L (6.3-8.2) g/dL Albumin 2.6 L (3.5-5.0) g/dL Calcium panel 09/27/16 Range/Units 05:35 Calcium 8.5 (8.4-10.2) mg/dL Albumin 2.6 L (3.5-5.0) g/dL Pituitary panel 09/26/16 09/27/16 Range/Units 12:14 05:35 Sodium 138 (137-145) mmol/L Potassium 3.4 L (3.5-5.1) mmol/L Chloride 106 (98-107) mmol/L Carbon Dioxide 22 (22-30) mmol/L BUN 28 H (9-20) mg/dL Creatinine 3.55 H (0.66-1.25) mg/dL Glucose 91 (74-99) mg/dL Calcium 8.5 (8.4-10.2) mg/dL ACTH 21.80 (0.00-45.99) pg/mL Adrenal panel 09/26/16 09/27/16 Range/Units 12:14 05:35 Sodium 138 (137-145) mmol/L Potassium 3.4 L (3.5-5.1) mmol/L Chloride 106 (98-107) mmol/L Carbon Dioxide 22 (22-30) mmol/L BUN 28 H (9-20) mg/dL Creatinine 3.55 H (0.66-1.25) mg/dL Glucose 91 (74-99) mg/dL Calcium 8.5 (8.4-10.2) mg/dL Total Bilirubin 0.7 (0.2-1.3) mg/dL AST 24 (17-59) U/L ALT 24 (21-72) U/L Alkaline Phosphatase 44 (38-126) U/L Total Protein 4.7 L (6.3-8.2) g/dL Albumin 2.6 L (3.5-5.0) g/dL ACTH 21.80 (0.00-45.99) pg/mL Assessment and Plan (1) End stage chronic kidney disease Narrative/Plan: Will discuss with nephrology about starting low-dose flushes to see if there is any peritoneal leak. Status: Chronic
[2016-09-27] MEDS: ALFUZOSIN ER 10 MG PO SCH (20:58)
[2016-09-27] MEDS: GABAPENTIN 100 MG CAP PO SCH (20:59)
[2016-09-27] MEDS: ATORVASTATIN 10 MG TAB PO SCH (20:59)
[2016-09-27] MEDS: DOCUSATE 100 MG CAP PO SCH (21:00)
[2016-09-28] MEDS: MIDODRINE 5 MG TAB PO SCH ×3 (06:12→17:49)
[2016-09-28] MEDS: PANTOPRAZOLE 40 MG TABLET PO SCH (06:12)
[2016-09-28 07:26] LABS: Calcium 8.3 mg/dL (8.4-10.2); Potassium 4.2 mmol/L (3.5-5.1); Total Bilirubin 0.9 mg/dL (0.2-1.3); Total Protein 4.6 g/dL (6.3-8.2)
--- NOTE | 2016-09-28 07:50 | P.PN ---
Subjective Patient is seen in follow-up for end-stage renal disease. He is maintained on hemodialysis on a Saturday schedule via permacath. He has a peritoneal dialysis catheter in place. Patient presented with generalized weakness and orthostatic hypotension. He was started on Florinef yesterday orthostasis has improved. Currently resting in bed. Denies chest pain or shortness of breath. No vomiting or diarrhea. He's also noted to have a right IJ clot for which she is not anticoagulation at this time due to hematuria. He also has a Jimenez catheter in place for urinary retention. Vital signs are stable. General: The patient appeared well nourished and normally developed. HEENT: Head exam is unremarkable. Neck is without jugular venous distension. LUNGS: Lungs are clear to auscultation and percussion. Breath sounds decreased. HEART: Rate and Rhythm are regular. First and second heart sounds normal. No murmurs, rubs or gallops. ABDOMEN: Abdominal exam reveals normal bowel sounds. Non-tender and non- distended. No evidence of peritonitis. EXTREMITITES: No clubbing, cyanosis, or edema. Objective - Vital Signs Vital signs: Vital Signs Temp 97.6 F 09/28/16 00:00 Pulse 93 09/28/16 04:00 Resp 16 09/28/16 04:00 BP 147/78 09/28/16 04:00 Pulse Ox 95 09/28/16 04:00 Intake & Output 09/27/16 09/28/16 09/28/16 18:59 06:59 18:59 Intake Total 760 0 Output Total 750 Balance 10 0 Weight 81.2 kg 82 kg Intake: IV 224 0 Heparin Sodium,Porcine/ 224 0 D5w Pmx 25,000 unit In Dextrose/Water 1 500ml. bag @ 18 UNITS/KG/HR 28. 69 mls/hr IV .[id number] [facility] Rx#:[id number] Oral 536 Output: Urine 750 Other: Voiding Method Indwelling Catheter Indwelling Catheter - Labs CBC & Chem 7: 09/27/16 13:00 09/28/16 06:18 Labs: Abnormal Lab Results - Last 24 Hours (Table) 09/27/16 09/27/16 09/27/16 Range/Units 05:35 05:35 13:00 RBC 2.43 L (4.30-5.90) m/uL Hgb 8.0 L (13.0-17.5) gm/dL Hct 25.2 L (39.0-53.0) % MCV 103.4 H (80.0-100.0) fL RDW 16.6 H (11.5-15.5) % Plt Count 68 L (150-450) k/uL Lymphocytes # 0.7 L (1.0-4.8) k/uL APTT >200.0 H* (22.0-30.0) sec Potassium 3.4 L (3.5-5.1) mmol/L BUN 28 H (9-20) mg/dL Creatinine 3.55 H (0.66-1.25) mg/dL Calcium (8.4-10.2) mg/dL Alkaline Phosphatase (38-126) U/L Total Protein 4.7 L (6.3-8.2) g/dL Albumin 2.6 L (3.5-5.0) g/dL 09/27/16 09/28/16 Range/Units 13:00 06:18 RBC 2.41 L (4.30-5.90) m/uL Hgb 8.3 L (13.0-17.5) gm/dL Hct 25.1 L (39.0-53.0) % MCV 104.2 H (80.0-100.0) fL RDW 16.8 H (11.5-15.5) % Plt Count 84 L (150-450) k/uL Lymphocytes # (1.0-4.8) k/uL APTT (22.0-30.0) sec Potassium (3.5-5.1) mmol/L BUN (9-20) mg/dL Creatinine 2.59 H (0.66-1.25) mg/dL Calcium 8.3 L (8.4-10.2) mg/dL Alkaline Phosphatase 35 L (38-126) U/L Total Protein 4.6 L (6.3-8.2) g/dL Albumin 2.6 L (3.5-5.0) g/dL Microbiology - Last 24 Hours (Table) 09/24/16 14:34 Blood Culture - Preliminary Blood No Growth after 72 hours Assessment and Plan Plan: Assessment: #1. End-stage renal disease maintained on hemodialysis on a Saturday schedule via permacath. #2. Orthostatic hypotension. Cortisol level noted to be on the lower end. ACTH stimulation test was done on September 26 and his cortisol level did go from baseline 11 up to 38 post stimulation. #3. Multiple myeloma maintained on chemotherapy. #4. Anemia of chronic kidney disease. Iron replete. #5. Hypovolemic hyponatremia. Resolved. #6. Hypokalemia related to poor nutritional status. Magnesium normal. Improved. #7. Right IJ thrombus intervened on IV heparin. #8. Urinary retention status post Jimenez catheter placement. Urology following. Plan: Hemodialysis tomorrow ultrafiltration. Continue Midodrine 10 mg 3 times daily. Continue Florinef 0.1 mg daily. He has a PD catheter in place - will start low-volume exchanges with 500 mL every 4 hours with 1.5% to make sure there are no leaks if okay with surgery. He will transition over to peritoneal dialysis in the next couple of weeks.
[2016-09-28 07:55] LABS: Anisocytosis Slight; CH 33.1; CHCM 31.9; HCT 25.4 % (39.0-53.0); HGB 8.4 gm/dL (13.0-17.5); MCH 34.3 pg (25.0-35.0); MCHC 32.9 g/dL (31.0-37.0); MCV 104.1 fL (80.0-100.0); Macrocytosis Moderate; Mean Platelet Volume 9.7; RBC 2.44 m/uL (4.30-5.90); WBC 5.9 k/uL (3.8-10.6); WBC (Perox) 5.65
[2016-09-28] MEDS: valACYclovir 500 MG TAB PO SCH (09:35)
[2016-09-28] MEDS: SULFAMETHOX-TMP 400-80MG 1 EACH TAB PO SCH (09:35)
[2016-09-28] MEDS: FLUDROCORTISONE 0.1 MG TAB PO SCH (09:35)
[2016-09-28] MEDS: ALLOPURINOL 100 MG TAB PO SCH (09:35)
[2016-09-28 09:56] LABS: Add Differential Manual Differential
[2016-09-28 10:00] LABS: Band Neutrophils % 0.5 %; Metamyelocytes % 1.5 %; Nucleated Red Blood Cells 0 /100 WBC (0-0); Total Cells Counted 200
--- NOTE | 2016-09-28 11:27 | P.PN ---
Subjective Principal diagnosis: Renal failure Patient doing better today. His urine is clear now. Nephrology evaluated in this morning. Plans are to begin 500 mL fills every 4 hours. Objective - Vital Signs Vital signs: Vital Signs Temp 97.2 F L 09/28/16 08:00 Pulse 107 H 09/28/16 08:00 Resp 18 09/28/16 08:00 BP 157/77 09/28/16 08:00 Pulse Ox 95 09/28/16 08:00 Intake & Output 09/27/16 09/28/16 09/28/16 18:59 06:59 18:59 Intake Total 760 0 Output Total 750 625 Balance 10 0 -625 Weight 81.2 kg 82 kg Intake: IV 224 0 Heparin Sodium,Porcine/ 224 0 D5w Pmx 25,000 unit In Dextrose/Water 1 500ml. bag @ 18 UNITS/KG/HR 28. 69 mls/hr IV .[id number] [facility] Rx#:[id number] Oral 536 Output: Urine 750 625 Other: Voiding Method Indwelling Catheter Indwelling Catheter Indwelling Catheter - Exam Abdomen: Soft, nontender, nondistended, incision clean and dry - Labs CBC & Chem 7: 09/28/16 06:18 09/28/16 06:18 Labs: Abnormal Lab Results - Last 24 Hours (Table) 09/27/16 09/27/16 09/28/16 Range/Units 13:00 13:00 06:18 RBC 2.41 L 2.44 L (4.30-5.90) m/uL Hgb 8.3 L 8.4 L (13.0-17.5) gm/dL Hct 25.1 L 25.4 L (39.0-53.0) % MCV 104.2 H 104.1 H (80.0-100.0) fL RDW 16.8 H 17.0 H (11.5-15.5) % Plt Count 84 L 82 L (150-450) k/uL Lymphocytes # (Manual) 0.6 L (1.0-4.8) k/uL APTT >200.0 H* (22.0-30.0) sec Creatinine (0.66-1.25) mg/dL Calcium (8.4-10.2) mg/dL Alkaline Phosphatase (38-126) U/L Total Protein (6.3-8.2) g/dL Albumin (3.5-5.0) g/dL 09/28/16 Range/Units 06:18 RBC (4.30-5.90) m/uL Hgb (13.0-17.5) gm/dL Hct (39.0-53.0) % MCV (80.0-100.0) fL RDW (11.5-15.5) % Plt Count (150-450) k/uL Lymphocytes # (Manual) (1.0-4.8) k/uL APTT (22.0-30.0) sec Creatinine 2.59 H (0.66-1.25) mg/dL Calcium 8.3 L (8.4-10.2) mg/dL Alkaline Phosphatase 35 L (38-126) U/L Total Protein 4.6 L (6.3-8.2) g/dL Albumin 2.6 L (3.5-5.0) g/dL Microbiology - Last 24 Hours (Table) 09/24/16 14:34 Blood Culture - Preliminary Blood No Growth after 72 hours Assessment and Plan (1) End stage chronic kidney disease Narrative/Plan: Continue low-volume exchanges. Gradually increase volume as tolerated. Status: Chronic
[2016-09-28] MEDS: DIALYSIS (PERITONEAL) DEX 1.5% 2,500 ML INTRAPERIT SCH ×4 (14:33→22:48)
--- NOTE | 2016-09-28 14:49 | P.PN ---
Subjective Principal diagnosis: severe orthostatic hypotension Pt seen today in followup, he is preparing for peritoneal dialysis now, he is still having hemodialysis and is under the care of Nephrology. He feels ok today, dizziness is nearly resolved, no fevers or physical c/o, his hematuria has resolved. Objective - Vital Signs Vital signs: Vital Signs Temp 97.2 F L 09/28/16 08:00 Pulse 107 H 09/28/16 12:00 Resp 18 09/28/16 12:00 BP 132/73 09/28/16 12:00 Pulse Ox 95 09/28/16 12:00 Intake & Output 09/27/16 09/28/16 09/28/16 18:59 06:59 18:59 Intake Total 760 0 Output Total 750 625 Balance 10 0 -625 Weight 81.2 kg 82 kg Intake: IV 224 0 Heparin Sodium,Porcine/ 224 0 D5w Pmx 25,000 unit In Dextrose/Water 1 500ml. bag @ 18 UNITS/KG/HR 28. 69 mls/hr IV .[id number] [facility] Rx#:[id number] Oral 536 Output: Urine 750 625 Other: Voiding Method Indwelling Catheter Indwelling Catheter Indwelling Catheter - Constitutional General appearance: Present: average body habitus, cooperative, no acute distress - EENT Eyes: Present: normal appearance - Respiratory Details: unlabored respiration, pt speaks without distress - Genitourinary Genitourinary Comment(s): solares catheter has francis colored urine, no blood clots noted - Psychiatric Psychiatric: Present: A&O x's 3, appropriate affect, intact judgment & insight - Labs CBC & Chem 7: 09/28/16 06:18 09/28/16 06:18 Labs: Abnormal Lab Results - Last 24 Hours (Table) 09/28/16 09/28/16 Range/Units 06:18 06:18 RBC 2.44 L (4.30-5.90) m/uL Hgb 8.4 L (13.0-17.5) gm/dL Hct 25.4 L (39.0-53.0) % MCV 104.1 H (80.0-100.0) fL RDW 17.0 H (11.5-15.5) % Plt Count 82 L (150-450) k/uL Lymphocytes # (Manual) 0.6 L (1.0-4.8) k/uL Creatinine 2.59 H (0.66-1.25) mg/dL Calcium 8.3 L (8.4-10.2) mg/dL Alkaline Phosphatase 35 L (38-126) U/L Total Protein 4.6 L (6.3-8.2) g/dL Albumin 2.6 L (3.5-5.0) g/dL Microbiology - Last 24 Hours (Table) 09/24/16 14:34 Blood Culture - Preliminary Blood No Growth after 72 hours Assessment and Plan (1) End stage chronic kidney disease Narrative/Plan: Pt under care of Nephrology, dialysis as directed Status: Chronic (2) Multiple myeloma Narrative/Plan: Pt CBC, though not normal, is stable, his treatment will be resumed after he has Status: Chronic (3) Orthostatic hypotension Narrative/Plan: Nephrology managing, pt BP definitely improved with florinef. Status: Acute (4) Thrombosis of right internal jugular vein Narrative/Plan: Low intensity heparin drip with no bolus has been ordered, Dr. Whitt wants to ensure that the pt is not going to bleed before initiating NOAC. Prescription for copay verification for eliquis has been sent to pharmacy with instructions to call the floor with cost to see if pt can afford. Dr. Whitt is rounding this weekend and will decide when to change pt over to oral therapy. Status: Acute
[2016-09-28] MEDS ORDERED: HEPARIN SODIUM,PORCINE 5,000 UNIT/ML 1 ML VIAL IV PRN (15:18)
[2016-09-28] MEDS ORDERED: HEPARIN SODIUM,PORCINE/D5W PMX 25,000 UNIT in DEXTROSE/WATER 1 500ML.BAG IV SCH (15:30)
[2016-09-28 16:09] LABS: Anisocytosis Slight; Basophils % (A) 0 %; CH 33.8; CHCM 33.1; Eosinophils # (A) 0.2 k/uL (0-0.7); Eosinophils % (A) 3 %; HCT 25.4 % (39.0-53.0); HDW 2.53; HGB 8.5 gm/dL (13.0-17.5); Luc # (Auto) 0.13; Luc % (Auto) 2; Lymphocytes # (A) 0.6 k/uL (1.0-4.8); Lymphocytes % (A) 8 %; MCH 34.5 pg (25.0-35.0); MCHC 33.6 g/dL (31.0-37.0); MCV 102.5 fL (80.0-100.0); Macrocytosis Moderate; Monocytes # (A) 0.4 k/uL (0-1.0); Monocytes % (A) 6 %; Neutrophils # (A) 5.6 k/uL (1.3-7.7); Neutrophils % (A) 81 %; RBC 2.48 m/uL (4.30-5.90); RDW 17.1 % (11.5-15.5); WBC 6.9 k/uL (3.8-10.6); WBC (Perox) 6.64
--- NOTE | 2016-09-28 16:21 | P.PN ---
Subjective orthostatic hypotention Patient is a 70-year-old male patient of [facility] who presented to [facility] emergency room with chief complaints of dizziness and weakness. Patient states that he has been having episodes of orthostatic hypotension, especially after hemodialysis sessions where his blood pressure drops significantly when standing up. His symptoms have been worsening and recently affecting his daily activity due to severe dizziness and weakness he states he was hardly able to stand up. Patient was evaluated in the emergency room, he had significant orthostatic changes, his troponin was also slightly elevated, he was admitted to telemetry floor for further evaluation and treatment. Patient has known history of multiple myeloma he has been receiving chemotherapy his last treatment was on Saturday. Patient also has known history of end-stage renal disease on hemodialysis which he receives through a catheter in the right subclavicular area, he also states that he had a peritoneal catheter placed to a and a half weeks ago as he plans to switch to peritoneal dialysis however he has not started that yet. 09/27/2016 patient is currently lying in bed comfortably. Yesterday he had evidence of urinary retention. Urology was consulted and Jimenez catheter had to be inserted. It was atraumatic insertion of the catheter. Now he has evidence of significant hematuria. Denies any nausea or vomiting. Denies any bowel movement changes 09/28/2016 hematuria has improved. Hematology has restarted the IV heparin for the right IJ clot. Patient sitting up in bedside chair. No new complaints. Flushing for the peritoneal dialysis has been started. Dr. Claros is following. Patient denies any chest pain or shortness of breath. Denies any nausea or vomiting. Reports having bowel movements. Objective - Vital Signs Vital signs: Vital Signs Temp 97.2 F L 09/28/16 08:00 Pulse 107 H 09/28/16 12:00 Resp 18 09/28/16 12:00 BP 132/73 09/28/16 12:00 Pulse Ox 95 09/28/16 12:00 Intake & Output 09/27/16 09/28/16 09/28/16 18:59 06:59 18:59 Intake Total 760 0 Output Total 750 625 Balance 10 0 -625 Weight 81.2 kg 82 kg Intake: IV 224 0 Heparin Sodium,Porcine/ 224 0 D5w Pmx 25,000 unit In Dextrose/Water 1 500ml. bag @ 18 UNITS/KG/HR 28. 69 mls/hr IV .[id number] [facility] Rx#:[id number] Oral 536 Output: Urine 750 625 Other: Voiding Method Indwelling Catheter Indwelling Catheter Indwelling Catheter - Exam Head normocephalic Neck supple Lungs clear to auscultation bilaterally no wheezing or crackles Heart regular rate and rhythm S1-S2, no rub or gallop Abdomen is soft nontender nondistended positive bowel sounds no hepatosplenomegaly Extremities no edema Neuro alert and orientated to 3 - Labs CBC & Chem 7: 09/28/16 15:45 09/28/16 06:18 Labs: Abnormal Lab Results - Last 24 Hours (Table) 09/28/16 09/28/16 09/28/16 Range/Units 06:18 06:18 15:45 RBC 2.44 L 2.48 L (4.30-5.90) m/uL Hgb 8.4 L 8.5 L (13.0-17.5) gm/dL Hct 25.4 L 25.4 L (39.0-53.0) % MCV 104.1 H 102.5 H (80.0-100.0) fL RDW 17.0 H 17.1 H (11.5-15.5) % Plt Count 82 L 96 L (150-450) k/uL Lymphocytes # 0.6 L (1.0-4.8) k/uL Lymphocytes # (Manual) 0.6 L (1.0-4.8) k/uL Creatinine 2.59 H (0.66-1.25) mg/dL Calcium 8.3 L (8.4-10.2) mg/dL Alkaline Phosphatase 35 L (38-126) U/L Total Protein 4.6 L (6.3-8.2) g/dL Albumin 2.6 L (3.5-5.0) g/dL Microbiology - Last 24 Hours (Table) 09/24/16 14:34 Blood Culture - Preliminary Blood No Growth after 72 hours Assessment and Plan Plan: 1. Orthostatic hypotension during dialysis. Orthostatic blood pressures have shown improvement with the Florinef. Cortisol increased from 11 up to 38 poststimulation. Case discussed with Dr. Salcedo he is recommending patient follow-up with endocrinology outpatient. Orthostatics will be repeated this evening. 2. End-stage renal disease on hemodialysis Latisha Thursday Saturday via permacath. Patient scheduled for hemodialysis tomorrow. Patient has PD catheter in place surgery and nephrology are following. They're starting with low volume flushes to make sure there is no leaking. He will transition over to peritoneal dialysis in the next couple of weeks per nephrology. Patient will need the hemodialysis catheter to stay in place for about a month to confirm that the peritoneal dialysis is working efficiently 3. Multiple myeloma on chemotherapy. Oncology evaluate patient today 4. Anemia of chronic kidney disease 5. Hypovolemic hyponatremia resolved 6. Right IJ thrombus evaluated by vascular surgery they had recommended IV heparin. Hematology evaluate patient today due to the improvement in the hematuria IV heparin has been restarted. [facility] 7. Urinary retention status post Jimenez catheter placement. Urology is following. Urology has adjusted medications discontinued Flomax and enablex. continued Uroxatral 8. Hematuria secondary to Traumatic Jimenez catheter insertion. Monitor CBC. Hemoglobin has gone up to 8.4 I performed an examination of the patient and discussed their management with the physician Rn Vascular. I have reviewed the Physician Rn Vascular's notes and agree with the documented findings and plan of care
[2016-09-28 16:25] LABS: INR 1.1 (<1.1); Prothrombin Time 10.6 sec (9.0-12.0)
[2016-09-28 16:31] LABS: Partial Thromboplastin Time 21.7 sec (22.0-30.0)
--- NOTE | 2016-09-28 22:40 | XR ---
EXAM: XR Abdomen Complete, 2 or More Views CLINICAL HISTORY: Reason: Peritoneal dialysis not draining TECHNIQUE: Frontal view of the abdomen/pelvis with upright view of the abdomen. COMPARISON: Abdominal radiograph 08/18/2016 FINDINGS: Gastrointestinal tract: Bowel gas pattern is unremarkable. No evidence of bowel obstruction. Organs: Pelvic calcifications suggesting calcified pelvic phleboliths. No radiopaque renal calculi identified. Bones/joints: Regional bony structures are unremarkable. Tubes, lines and devices: Peritoneal dialysis catheter has been placed since prior abdominal radiograph and projects to right mid abdomen. IMPRESSION: No radiographic evidence of acute abdominal disease or bowel obstruction. Dialysis catheter projects to right mid abdomen.
[2016-09-28] MEDS: GABAPENTIN 100 MG CAP PO SCH (22:49)
[2016-09-28] MEDS: DOCUSATE 100 MG CAP PO SCH (22:49)
[2016-09-28] MEDS: ATORVASTATIN 10 MG TAB PO SCH (22:49)
[2016-09-28] MEDS: ALFUZOSIN ER 10 MG PO SCH (23:26)
[2016-09-29] MEDS ORDERED: HEPARIN SODIUM,PORCINE 5,000 UNIT/ML 1 ML VIAL ONE (00:50)
[2016-09-29 07:00] LABS: Anisocytosis Slight; Basophils % (A) 0 %; CH 33.4; CHCM 32.1; Eosinophils # (A) 0.2 k/uL (0-0.7); Eosinophils % (A) 3 %; HCT 24.5 % (39.0-53.0); HDW 2.38; Luc # (Auto) 0.11; Luc % (Auto) 2; Lymphocytes # (A) 0.5 k/uL (1.0-4.8); Lymphocytes % (A) 10 %; MCH 34.1 pg (25.0-35.0); MCHC 32.6 g/dL (31.0-37.0); MCV 104.6 fL (80.0-100.0); Macrocytosis Moderate; Mean Platelet Volume 8.8; Monocytes # (A) 0.3 k/uL (0-1.0); Monocytes % (A) 5 %; Neutrophils # (A) 4.3 k/uL (1.3-7.7); Neutrophils % (A) 80 %; RBC 2.34 m/uL (4.30-5.90); RDW 17.4 % (11.5-15.5); WBC 5.4 k/uL (3.8-10.6); WBC (Perox) 5.45
[2016-09-29] MEDS: PANTOPRAZOLE 40 MG TABLET PO SCH (07:56)
[2016-09-29] MEDS: MIDODRINE 5 MG TAB PO SCH ×3 (07:56→17:44)
[2016-09-29] MEDS: ALLOPURINOL 100 MG TAB PO SCH (07:56)
[2016-09-29] MEDS: FLUDROCORTISONE 0.1 MG TAB PO SCH (07:56)
[2016-09-29] MEDS: valACYclovir 500 MG TAB PO SCH (07:56)
--- NOTE | 2016-09-29 08:57 | P.PN ---
Subjective Patient is seen in follow-up for end-stage renal disease. He is maintained on hemodialysis on a Saturday schedule via permacath. He has a peritoneal dialysis catheter in place. Patient presented with generalized weakness and orthostatic hypotension. He was started on Florinef this admission and orthostasis has improved. Currently resting in bed. Denies chest pain or shortness of breath. No vomiting or diarrhea. He's also noted to have a right IJ clot for which he is on anticoagulation. He also has a Jimenez catheter in place for urinary retention. Peritoneal dialysis was started yesterday with low volume exchanges but has been stopped now as he wasn't draining well. Denies constipation. Vital signs are stable. General: The patient appeared well nourished and normally developed. HEENT: Head exam is unremarkable. Neck is without jugular venous distension. LUNGS: Lungs are clear to auscultation and percussion. Breath sounds decreased. HEART: Rate and Rhythm are regular. First and second heart sounds normal. No murmurs, rubs or gallops. ABDOMEN: Abdominal exam reveals normal bowel sounds. Non-tender and non- distended. No evidence of peritonitis. EXTREMITITES: No clubbing, cyanosis, or edema. Objective - Vital Signs Vital signs: Vital Signs Temp 97.3 F L 09/29/16 04:24 Pulse 98 09/29/16 04:24 Resp 18 09/29/16 04:24 BP 162/86 09/29/16 04:24 Pulse Ox 97 09/29/16 04:24 Intake & Output 09/28/16 09/29/16 09/29/16 18:59 06:59 18:59 Intake Total 148.256 Output Total 625 900 Balance -694 -867.143 Weight 83.4 kg Intake: Intake, IV Titration 148.256 Amount Heparin Sodium,Porcine/ 148.256 D5w Pmx 25,000 unit In Dextrose/Water 1 500ml. bag @ 12 UNITS/KG/HR 19. 68 mls/hr IV .Q24H [facility] Rx #:[id number] Output: Urine 625 900 Other: Voiding Method Indwelling Catheter Indwelling Catheter # Bowel Movements 1 - Labs CBC & Chem 7: 09/29/16 06:07 09/28/16 06:18 Labs: Abnormal Lab Results - Last 24 Hours (Table) 09/28/16 09/28/16 09/28/16 Range/Units 06:18 15:45 15:45 RBC 2.48 L (4.30-5.90) m/uL Hgb 8.5 L (13.0-17.5) gm/dL Hct 25.4 L (39.0-53.0) % MCV 102.5 H (80.0-100.0) fL RDW 17.1 H (11.5-15.5) % Plt Count 96 L (150-450) k/uL Lymphocytes # 0.6 L (1.0-4.8) k/uL Lymphocytes # (Manual) 0.6 L (1.0-4.8) k/uL APTT 21.7 L (22.0-30.0) sec 09/28/16 09/29/16 09/29/16 Range/Units 21:30 06:07 07:40 RBC 2.34 L (4.30-5.90) m/uL Hgb 8.0 L (13.0-17.5) gm/dL Hct 24.5 L (39.0-53.0) % MCV 104.6 H (80.0-100.0) fL RDW 17.4 H (11.5-15.5) % Plt Count 91 L (150-450) k/uL Lymphocytes # 0.5 L (1.0-4.8) k/uL Lymphocytes # (Manual) (1.0-4.8) k/uL APTT 32.4 H 72.5 H (22.0-30.0) sec Microbiology - Last 24 Hours (Table) 09/24/16 14:34 Blood Culture - Preliminary Blood No Growth after 96 hours Assessment and Plan Plan: Assessment: #1. End-stage renal disease maintained on hemodialysis on a Saturday schedule via permacath. #2. Orthostatic hypotension. Cortisol level noted to be on the lower end. ACTH stimulation test was done on September 26 and his cortisol level did go from baseline 11 up to 38 post stimulation. Improved with Florinef. #3. Multiple myeloma maintained on chemotherapy. #4. Anemia of chronic kidney disease. Iron replete. #5. Hypovolemic hyponatremia. Resolved. #6. Hypokalemia related to poor nutritional status. Magnesium normal. Improved. #7. Right IJ thrombus intervened on IV heparin. #8. Urinary retention status post Jimenez catheter placement. Urology following. Plan: Hemodialysis today without ultrafiltration. Continue Midodrine 10 mg 3 times daily. Continue Florinef 0.1 mg daily. Maintain lactulose as needed for constipation. Surgery to evaluate regarding poor drains with peritoneal dialysis.
[2016-09-29 09:22] LABS: Calcium 8.3 mg/dL (8.4-10.2); Potassium 4.1 mmol/L (3.5-5.1); Total Protein 4.6 g/dL (6.3-8.2)
[2016-09-29 10:02] LABS: Total Bilirubin 0.6 mg/dL (0.2-1.3)
[2016-09-29] MEDS: APIXABAN 5 MG TAB PO SCH ×2 (10:24→20:25)
--- NOTE | 2016-09-29 10:45 | P.PN ---
Subjective Principal diagnosis: Renal failure Patient apparently was having some issues last night with poor drainage from his catheter. 2 separate fills a 500 mL did not lead to significant volume output. No pain. No swelling at the surgical site. His x-rays were reviewed. Unfortunately the catheter does seem to be directed into the right upper quadrant at this time. He is lying supine and has been doing so for quite some time now Objective - Vital Signs Vital signs: Vital Signs Temp 97.4 F L 09/29/16 08:00 Pulse 101 H 09/29/16 08:00 Resp 18 09/29/16 08:00 BP 142/67 09/29/16 08:00 Pulse Ox 95 09/29/16 08:00 Intake & Output 09/28/16 09/29/16 09/29/16 18:59 06:59 18:59 Intake Total 148.256 120 Output Total 625 900 Balance -189 -751.744 120 Weight 83.4 kg Intake: Intake, IV Titration 148.256 Amount Heparin Sodium,Porcine/ 148.256 D5w Pmx 25,000 unit In Dextrose/Water 1 500ml. bag @ 12 UNITS/KG/HR 19. 68 mls/hr IV .Q24H [facility] Rx #:[id number] Oral 120 Output: Urine 625 900 Other: Voiding Method Indwelling Catheter Indwelling Catheter Indwelling Catheter # Bowel Movements 1 - Exam Abdomen: Soft, nontender, nondistended - Labs CBC & Chem 7: 09/29/16 06:07 09/29/16 06:07 Labs: Abnormal Lab Results - Last 24 Hours (Table) 09/28/16 09/28/16 09/28/16 Range/Units 15:45 15:45 21:30 RBC 2.48 L (4.30-5.90) m/uL Hgb 8.5 L (13.0-17.5) gm/dL Hct 25.4 L (39.0-53.0) % MCV 102.5 H (80.0-100.0) fL RDW 17.1 H (11.5-15.5) % Plt Count 96 L (150-450) k/uL Lymphocytes # 0.6 L (1.0-4.8) k/uL APTT 21.7 L 32.4 H (22.0-30.0) sec BUN (9-20) mg/dL Creatinine (0.66-1.25) mg/dL Calcium (8.4-10.2) mg/dL Total Protein (6.3-8.2) g/dL Albumin (3.5-5.0) g/dL 09/29/16 09/29/16 09/29/16 Range/Units 06:07 06:07 07:40 RBC 2.34 L (4.30-5.90) m/uL Hgb 8.0 L (13.0-17.5) gm/dL Hct 24.5 L (39.0-53.0) % MCV 104.6 H (80.0-100.0) fL RDW 17.4 H (11.5-15.5) % Plt Count 91 L (150-450) k/uL Lymphocytes # 0.5 L (1.0-4.8) k/uL APTT 72.5 H (22.0-30.0) sec BUN 28 H (9-20) mg/dL Creatinine 3.29 H (0.66-1.25) mg/dL Calcium 8.3 L (8.4-10.2) mg/dL Total Protein 4.6 L (6.3-8.2) g/dL Albumin 2.6 L (3.5-5.0) g/dL Microbiology - Last 24 Hours (Table) 09/24/16 14:34 Blood Culture - Preliminary Blood No Growth after 96 hours Assessment and Plan (1) End stage chronic kidney disease Narrative/Plan: Patient with poor drainage from his catheter at this time. The patient clinically is improved would consider doing a slightly larger fill and increasing his activity level with more ambulation and then repeating the patient's x-ray following that type of activity would be benavidez. If the catheter does not shift itself back into the pelvis the patient may require a laparoscopic revision. Status: Chronic
--- NOTE | 2016-09-29 15:45 | P.PN ---
Subjective Principal diagnosis: orthostatic hypotention Patient is a 70-year-old male patient of [facility] who presented to [facility] emergency room with chief complaints of dizziness and weakness. Patient states that he has been having episodes of orthostatic hypotension, especially after hemodialysis sessions where his blood pressure drops significantly when standing up. His symptoms have been worsening and recently affecting his daily activity due to severe dizziness and weakness he states he was hardly able to stand up. Patient was evaluated in the emergency room, he had significant orthostatic changes, his troponin was also slightly elevated, he was admitted to telemetry floor for further evaluation and treatment. Patient has known history of multiple myeloma he has been receiving chemotherapy his last treatment was on Saturday. Patient also has known history of end-stage renal disease on hemodialysis which he receives through a catheter in the right subclavicular area, he also states that he had a peritoneal catheter placed to a and a half weeks ago as he plans to switch to peritoneal dialysis however he has not started that yet. Objective - Vital Signs Vital signs: Vital Signs Temp 97.4 F L 09/29/16 15:14 Pulse 101 H 09/29/16 15:14 Resp 18 09/29/16 15:14 BP 145/70 09/29/16 15:14 Pulse Ox 97 09/29/16 15:14 Intake & Output 09/28/16 09/29/16 09/29/16 18:59 06:59 18:59 Intake Total 148.256 360 Output Total 625 900 250 Balance -981 -262.744 110 Weight 83.4 kg Intake: Intake, IV Titration 148.256 Amount Heparin Sodium,Porcine/ 148.256 D5w Pmx 25,000 unit In Dextrose/Water 1 500ml. bag @ 12 UNITS/KG/HR 19. 68 mls/hr IV .Q24H [facility] Rx #:[id number] Oral 360 Output: Urine 625 900 250 Other: Voiding Method Indwelling Catheter Indwelling Catheter Indwelling Catheter # Bowel Movements 1 1 - Exam In general patient is alert and oriented 3 in no apparent distress HEENT head normocephalic and atraumatic Neck is supple no JVD no goiter no lymphadenopathy Chest exam reveals a few scattered rhonchi no wheezing Cardiac exam reveals regular heart sounds S1 and S2 no gallops no murmurs Abdomen is soft nontender no organomegaly Extremity exam reveals no edema no cyanosis or clubbing - Labs CBC & Chem 7: 09/29/16 06:07 09/29/16 06:07 Labs: Abnormal Lab Results - Last 24 Hours (Table) 09/28/16 09/28/16 09/28/16 Range/Units 15:45 15:45 21:30 RBC 2.48 L (4.30-5.90) m/uL Hgb 8.5 L (13.0-17.5) gm/dL Hct 25.4 L (39.0-53.0) % MCV 102.5 H (80.0-100.0) fL RDW 17.1 H (11.5-15.5) % Plt Count 96 L (150-450) k/uL Lymphocytes # 0.6 L (1.0-4.8) k/uL APTT 21.7 L 32.4 H (22.0-30.0) sec BUN (9-20) mg/dL Creatinine (0.66-1.25) mg/dL Calcium (8.4-10.2) mg/dL Total Protein (6.3-8.2) g/dL Albumin (3.5-5.0) g/dL 09/29/16 09/29/16 09/29/16 Range/Units 06:07 06:07 07:40 RBC 2.34 L (4.30-5.90) m/uL Hgb 8.0 L (13.0-17.5) gm/dL Hct 24.5 L (39.0-53.0) % MCV 104.6 H (80.0-100.0) fL RDW 17.4 H (11.5-15.5) % Plt Count 91 L (150-450) k/uL Lymphocytes # 0.5 L (1.0-4.8) k/uL APTT 72.5 H (22.0-30.0) sec BUN 28 H (9-20) mg/dL Creatinine 3.29 H (0.66-1.25) mg/dL Calcium 8.3 L (8.4-10.2) mg/dL Total Protein 4.6 L (6.3-8.2) g/dL Albumin 2.6 L (3.5-5.0) g/dL Microbiology - Last 24 Hours (Table) 09/24/16 14:34 Blood Culture - Preliminary Blood No Growth after 96 hours Assessment and Plan Plan: #1 orthostatic hypotension with dizziness and severe weakness #2 end-stage renal disease on hemodialysis, patient plans to switch to peritoneal dialysis, has catheter already inserted #3 underlying history of multiple myeloma currently receiving chemotherapy his last session was last Saturday #4 mild elevation in troponin level without any chest pain At this time patient is admitted to telemetry floor, Carotid doppler revealed evidence of Jugular vein thrombus patient was evaluated by Dr Ross recommendation is to give anticoagulation until catheter is removed cardiology and nephrology consultation were requested possibility of Srikanth disease, checking Cortisol level
--- NOTE | 2016-09-29 16:30 | P.PN ---
Subjective Jimenez catheter is now clear. No other bleeding noted. No h/o f/c/n/v. UO has actually increased. He feels better re his orthostatic symptoms Objective - Vital Signs Vital signs: Vital Signs Temp 97.4 F L 09/29/16 15:14 Pulse 101 H 09/29/16 15:14 Resp 18 09/29/16 15:14 BP 145/70 09/29/16 15:14 Pulse Ox 97 09/29/16 15:14 Intake & Output 09/28/16 09/29/16 09/29/16 18:59 06:59 18:59 Intake Total 148.256 360 Output Total 625 900 250 Balance -625 751.744 110 Weight 83.4 kg Intake: Intake, IV Titration 148.256 Amount Heparin Sodium,Porcine/ 148.256 D5w Pmx 25,000 unit In Dextrose/Water 1 500ml. bag @ 12 UNITS/KG/HR 19. 68 mls/hr IV .Q24H [facility] Rx #:[id number] Oral 360 Output: Urine 625 900 250 Other: Voiding Method Indwelling Catheter Indwelling Catheter Indwelling Catheter # Bowel Movements 1 1 - Constitutional General appearance: Present: no acute distress - EENT Eyes: Present: EOMI, PERRLA ENT: Present: hearing grossly normal, normal oropharynx - Neck Neck: Present: other (induration along rt IJ) - Respiratory Respiratory: bilateral: CTA - Cardiovascular Rhythm: regular Heart sounds: normal: S1, S2 - Gastrointestinal General gastrointestinal: Present: normal bowel sounds, soft - Integumentary Integumentary: Present: normal - Neurologic Neurologic: Present: CNII-XII intact - Musculoskeletal Musculoskeletal: Present: strength equal bilaterally - Psychiatric Psychiatric: Present: A&O x's 3 - Labs CBC & Chem 7: 09/29/16 06:07 09/29/16 06:07 Labs: Abnormal Lab Results - Last 24 Hours (Table) 09/28/16 09/28/16 09/29/16 Range/Units 15:45 21:30 06:07 RBC 2.34 L (4.30-5.90) m/uL Hgb 8.0 L (13.0-17.5) gm/dL Hct 24.5 L (39.0-53.0) % MCV 104.6 H (80.0-100.0) fL RDW 17.4 H (11.5-15.5) % Plt Count 91 L (150-450) k/uL Lymphocytes # 0.5 L (1.0-4.8) k/uL APTT 21.7 L 32.4 H (22.0-30.0) sec BUN (9-20) mg/dL Creatinine (0.66-1.25) mg/dL Calcium (8.4-10.2) mg/dL Total Protein (6.3-8.2) g/dL Albumin (3.5-5.0) g/dL 09/29/16 09/29/16 Range/Units 06:07 07:40 RBC (4.30-5.90) m/uL Hgb (13.0-17.5) gm/dL Hct (39.0-53.0) % MCV (80.0-100.0) fL RDW (11.5-15.5) % Plt Count (150-450) k/uL Lymphocytes # (1.0-4.8) k/uL APTT 72.5 H (22.0-30.0) sec BUN 28 H (9-20) mg/dL Creatinine 3.29 H (0.66-1.25) mg/dL Calcium 8.3 L (8.4-10.2) mg/dL Total Protein 4.6 L (6.3-8.2) g/dL Albumin 2.6 L (3.5-5.0) g/dL Microbiology - Last 24 Hours (Table) 09/24/16 14:34 Blood Culture - Preliminary Blood No Growth after 96 hours Assessment and Plan (1) Thrombosis of right internal jugular vein Narrative/Plan: Pt was placed back on IV heparin yesterday AM. He has had no recurrence of hematuria. No other bleeding noted. Hgb is stable. He will be changed to Eliquis , and IV heparin stopped Status: Acute (2) Orthostatic hypotension Narrative/Plan: Improved Status: Acute (3) Multiple myeloma Narrative/Plan: Responding , on chemo. Continue to monitor counts. These are in a safe range Status: Chronic
[2016-09-29] MEDS: GABAPENTIN 100 MG CAP PO SCH (20:25)
[2016-09-29] MEDS: ATORVASTATIN 10 MG TAB PO SCH (20:25)
[2016-09-29] MEDS: DOCUSATE 100 MG CAP PO SCH (20:25)
[2016-09-29] MEDS: ALFUZOSIN ER 10 MG PO SCH (20:26)
[2016-09-30] MEDS: PANTOPRAZOLE 40 MG TABLET PO SCH (06:47)
[2016-09-30 06:48] LABS: Anisocytosis Slight; Basophils % (A) 0 %; CH 33.7; CHCM 32.2; Eosinophils # (A) 0.1 k/uL (0-0.7); Eosinophils % (A) 2 %; HCT 27.5 % (39.0-53.0); HDW 2.39; HGB 8.9 gm/dL (13.0-17.5); Luc # (Auto) 0.15; Luc % (Auto) 2; Lymphocytes # (A) 0.5 k/uL (1.0-4.8); Lymphocytes % (A) 7 %; MCHC 32.3 g/dL (31.0-37.0); MCV 105.1 fL (80.0-100.0); Macrocytosis Moderate; Mean Platelet Volume 8.3; Monocytes # (A) 0.3 k/uL (0-1.0); Monocytes % (A) 4 %; Neutrophils # (A) 6.2 k/uL (1.3-7.7); Neutrophils % (A) 84 %; RBC 2.62 m/uL (4.30-5.90); RDW 17.4 % (11.5-15.5); WBC 7.3 k/uL (3.8-10.6); WBC (Perox) 7.72
[2016-09-30 06:55] LABS: Calcium 8.6 mg/dL (8.4-10.2); Potassium 3.7 mmol/L (3.5-5.1); Total Bilirubin 0.7 mg/dL (0.2-1.3); Total Protein 5.2 g/dL (6.3-8.2)
[2016-09-30] MEDS: MIDODRINE 5 MG TAB PO SCH ×2 (09:09→18:01)
[2016-09-30] MEDS: valACYclovir 500 MG TAB PO SCH (09:10)
[2016-09-30] MEDS: APIXABAN 5 MG TAB PO SCH (09:10)
[2016-09-30] MEDS: ALLOPURINOL 100 MG TAB PO SCH (09:10)
[2016-09-30] MEDS: FLUDROCORTISONE 0.1 MG TAB PO SCH (09:12)
--- NOTE | 2016-09-30 09:45 | P.PN ---
Subjective Patient is seen in follow-up for end-stage renal disease. He is maintained on hemodialysis on a Saturday schedule via permacath. He has a peritoneal dialysis catheter in place. Patient presented with generalized weakness and orthostatic hypotension. He was started on Florinef this admission and orthostasis has improved. Currently resting in bed. Denies chest pain or shortness of breath. No vomiting or diarrhea. He's also noted to have a right IJ clot for which he is on anticoagulation. Peritoneal dialysis was started with low volume exchanges however he did not drain well. The catheter is not in the correct position. Vital signs are stable. General: The patient appeared well nourished and normally developed. HEENT: Head exam is unremarkable. Neck is without jugular venous distension. LUNGS: Lungs are clear to auscultation and percussion. Breath sounds decreased. HEART: Rate and Rhythm are regular. First and second heart sounds normal. No murmurs, rubs or gallops. ABDOMEN: Abdominal exam reveals normal bowel sounds. Non-tender and non- distended. No evidence of peritonitis. EXTREMITITES: No clubbing, cyanosis, or edema. Objective - Vital Signs Vital signs: Vital Signs Temp 98.3 F 09/30/16 09:06 Pulse 114 H 09/30/16 09:06 Resp 20 09/30/16 09:06 BP 129/71 09/30/16 09:06 Pulse Ox 98 09/30/16 09:06 Intake & Output 09/29/16 09/30/16 09/30/16 18:59 06:59 18:59 Intake Total 600 600 Output Total 250 2193 150 Balance 350 -2193 450 Weight 83.7 kg Intake: Oral 600 600 Output: Urine 250 795 150 Uretheral (Jimenez) 70 Post Void Residual 1398 Other: Voiding Method Indwelling Catheter Toilet Toilet Urinal Urinal # Bowel Movements 1 - Labs CBC & Chem 7: 09/30/16 06:20 09/30/16 06:20 Labs: Abnormal Lab Results - Last 24 Hours (Table) 09/30/16 09/30/16 Range/Units 06:20 06:20 RBC 2.62 L (4.30-5.90) m/uL Hgb 8.9 L (13.0-17.5) gm/dL Hct 27.5 L (39.0-53.0) % MCV 105.1 H (80.0-100.0) fL RDW 17.4 H (11.5-15.5) % Plt Count 111 L (150-450) k/uL Lymphocytes # 0.5 L (1.0-4.8) k/uL Creatinine 2.40 H (0.66-1.25) mg/dL Total Protein 5.2 L (6.3-8.2) g/dL Albumin 3.3 L (3.5-5.0) g/dL Microbiology - Last 24 Hours (Table) 09/24/16 14:34 Blood Culture - Preliminary Blood No Growth after 120 hours Assessment and Plan Plan: Assessment: #1. End-stage renal disease maintained on hemodialysis on a Saturday schedule via permacath. #2. Orthostatic hypotension. Cortisol level noted to be on the lower end. ACTH stimulation test was done on September 26 and his cortisol level did go from baseline 11 up to 38 post stimulation. Improved with Florinef. #3. Multiple myeloma maintained on chemotherapy. #4. Anemia of chronic kidney disease. Iron replete. #5. Hypovolemic hyponatremia. Resolved. #6. Hypokalemia related to poor nutritional status. Magnesium normal. Improved. #7. Right IJ thrombus intervened on IV heparin. #8. Urinary retention status post Jimenez catheter placement and removal. Urology following. Plan: Hemodialysis Saturday. Continue Midodrine 10 mg 3 times daily. Continue Florinef 0.1 mg daily. Maintain lactulose as needed for constipation. Patient has been more ambulatory. I will attempt 1 L exchange and see how he drains. Otherwise he will likely require a laparoscopic revision. Surgery following.
--- NOTE | 2016-09-30 10:57 | P.PN ---
Subjective Pleasant 70-year-old male resting in bed. Patient has a history of end-stage renal disease patient has a history of end-stage renal disease. Patient had been maintained on hemodialysis on the permacat Saturday schedule. Patient's initial presentation with generalized weakness and orthostatic hypotension. Patient was placed on florinef with a noted improvement in orthostasis patient is noted to have a right IJ clot from the permacath in which patient is on anticoagulation Family at bedside. He states he states has been up ambulating in the [place] this morning. Patient is able to verbalize an understanding of the plan. Dr. Tolbert recommended that the patient ambulate in the [place] come back have the catheter filled with 500 ml evaluate response a poor drainage from the catheter that the catheter is not shifted self back into the pelvis the patient may require a laparoscopic revision the indwelling Jimenez catheter was removed this morning patient has voided 175 MLS Objective - Vital Signs Vital signs: Vital Signs Temp 98.3 F 09/30/16 09:06 Pulse 114 H 09/30/16 09:06 Resp 20 09/30/16 09:06 BP 129/71 09/30/16 09:06 Pulse Ox 98 09/30/16 09:06 Intake & Output 09/29/16 09/30/16 09/30/16 18:59 06:59 18:59 Intake Total 600 600 Output Total 250 2193 150 Balance 350 -2193 450 Weight 83.7 kg Intake: Oral 600 600 Output: Urine 250 795 150 Uretheral (Jimenez) 70 Post Void Residual 1398 Other: Voiding Method Indwelling Catheter Toilet Toilet Urinal Urinal # Bowel Movements 1 - Exam Physical exam 70-year-old male resting in bed at bedside denies dizziness lightheadedness chest pain or shortness of breath Lungs essentially clear on room air Heart S1-S2 audible regular monitor sinus rhythm denying chest pain Abdomen dressing to the peritoneal catheter in place no evidence of peritonitis. Reports no nausea vomiting extremities a trace pedal edema bilaterally - Labs CBC & Chem 7: 09/30/16 06:20 09/30/16 06:20 Labs: Abnormal Lab Results - Last 24 Hours (Table) 09/30/16 09/30/16 Range/Units 06:20 06:20 RBC 2.62 L (4.30-5.90) m/uL Hgb 8.9 L (13.0-17.5) gm/dL Hct 27.5 L (39.0-53.0) % MCV 105.1 H (80.0-100.0) fL RDW 17.4 H (11.5-15.5) % Plt Count 111 L (150-450) k/uL Lymphocytes # 0.5 L (1.0-4.8) k/uL Creatinine 2.40 H (0.66-1.25) mg/dL Total Protein 5.2 L (6.3-8.2) g/dL Albumin 3.3 L (3.5-5.0) g/dL Microbiology - Last 24 Hours (Table) 09/24/16 14:34 Blood Culture - Preliminary Blood No Growth after 120 hours Assessment and Plan Plan: Impression Present on admission dizziness lightheadedness suspect due to orthostatic hypotension end-stage renal disease maintained on hemodialysis via permacath Right IJ thrombus permacath site Urinary retention Hypokalemia and hyponatremia history of multiple myeloma maintained on chemotherapy mild elevation in troponin level without any evidence of acute coronary syndrome Plan Continue recommendations by surgical service defer to Resume home meds as appropriate Continue elquis 5 mg twice a day Continue florinef 0.1mg daily Continue midodrine 10mg before meals 3 times a day Further recommendations pending Continue recommendations by nephrology service defer to The above dictated assessment and findings were discussed with dr brianna Das and the plan of care have been dictated as directed. Carol Colin nurse practitioner acting as a scribe for dr reed
[2016-09-30] MEDS ORDERED: DIALYSIS DEX INTRAPERIT ONE (11:00)
--- NOTE | 2016-09-30 11:15 | P.PN ---
Subjective Principal diagnosis: Renal failure No new complaints. The patient is just now starting to receive a 1 L dialysis exchange. Denies abdominal pain. Objective - Vital Signs Vital signs: Vital Signs Temp 97.9 F 09/30/16 10:45 Pulse 85 09/30/16 10:45 Resp 16 09/30/16 10:45 BP 141/75 09/30/16 10:45 Pulse Ox 96 09/30/16 10:45 Intake & Output 09/29/16 09/30/16 09/30/16 18:59 06:59 18:59 Intake Total 600 600 Output Total 250 2193 150 Balance 350 -2193 450 Weight 83.7 kg Intake: Oral 600 600 Output: Urine 250 795 150 Uretheral (Jimenez) 70 Post Void Residual 1398 Other: Voiding Method Indwelling Catheter Toilet Toilet Urinal Urinal # Bowel Movements 1 - Exam Abdomen: Soft, nontender, nondistended - Labs CBC & Chem 7: 09/30/16 06:20 09/30/16 06:20 Labs: Abnormal Lab Results - Last 24 Hours (Table) 09/30/16 09/30/16 Range/Units 06:20 06:20 RBC 2.62 L (4.30-5.90) m/uL Hgb 8.9 L (13.0-17.5) gm/dL Hct 27.5 L (39.0-53.0) % MCV 105.1 H (80.0-100.0) fL RDW 17.4 H (11.5-15.5) % Plt Count 111 L (150-450) k/uL Lymphocytes # 0.5 L (1.0-4.8) k/uL Creatinine 2.40 H (0.66-1.25) mg/dL Total Protein 5.2 L (6.3-8.2) g/dL Albumin 3.3 L (3.5-5.0) g/dL Microbiology - Last 24 Hours (Table) 09/24/16 14:34 Blood Culture - Preliminary Blood No Growth after 120 hours Assessment and Plan (1) End stage chronic kidney disease Narrative/Plan: Agree with plans for 1 L exchange. If the patient still has poor output will consider laparoscopic revision possibly even during this hospitalization. Status: Chronic
[2016-09-30] MEDS ORDERED: DIALYSIS (PERITONEAL) DEX 1.5% 2,500 ML INTRAPERIT ONE (15:00)
[2016-09-30] MEDS: ATORVASTATIN 10 MG TAB PO SCH (20:52)
[2016-09-30] MEDS: GABAPENTIN 100 MG CAP PO SCH (20:52)
[2016-09-30] MEDS: ALFUZOSIN ER 10 MG PO SCH (20:53)
[2016-09-30] MEDS: DOCUSATE 100 MG CAP PO SCH (20:53)
[2016-10-01 06:38] LABS: Anisocytosis Slight; Basophils % (A) 0 %; CH 33.7; CHCM 31.4; Eosinophils # (A) 0.1 k/uL (0-0.7); Eosinophils % (A) 2 %; HCT 27.4 % (39.0-53.0); HDW 2.36; HGB 8.6 gm/dL (13.0-17.5); Luc # (Auto) 0.13; Luc % (Auto) 2; Lymphocytes # (A) 0.5 k/uL (1.0-4.8); Lymphocytes % (A) 7 %; MCH 33.7 pg (25.0-35.0); MCHC 31.3 g/dL (31.0-37.0); MCV 107.8 fL (80.0-100.0); Macrocytosis Marked; Mean Platelet Volume 9.1; Monocytes # (A) 0.4 k/uL (0-1.0); Monocytes % (A) 5 %; Neutrophils # (A) 5.6 k/uL (1.3-7.7); Neutrophils % (A) 83 %; RBC 2.55 m/uL (4.30-5.90); RDW 17.4 % (11.5-15.5); WBC 6.7 k/uL (3.8-10.6); WBC (Perox) 6.36
[2016-10-01] MEDS: valACYclovir 500 MG TAB PO SCH (07:41)
[2016-10-01] MEDS: SULFAMETHOX-TMP 400-80MG 1 EACH TAB PO SCH (07:41)
[2016-10-01] MEDS: PANTOPRAZOLE 40 MG TABLET PO SCH (07:41)
[2016-10-01] MEDS: FLUDROCORTISONE 0.1 MG TAB PO SCH (07:41)
[2016-10-01] MEDS: ALLOPURINOL 100 MG TAB PO SCH (07:41)
--- NOTE | 2016-10-01 08:39 | P.PN ---
Subjective Patient is seen in follow-up for end-stage renal disease. He is maintained on hemodialysis on a Saturday schedule via permacath. He has a peritoneal dialysis catheter in place. Patient presented with generalized weakness and orthostatic hypotension. He was started on Florinef this admission and orthostasis has improved. Currently resting in bed. Denies chest pain or shortness of breath. No vomiting or diarrhea. He's also noted to have a right IJ clot for which he is on anticoagulation. Peritoneal dialysis was started with low volume exchanges also underwent a 1 L exchange yesterday - however he did not drain well. The catheter is not in the correct position. Vital signs are stable. General: The patient appeared well nourished and normally developed. HEENT: Head exam is unremarkable. Neck is without jugular venous distension. LUNGS: Lungs are clear to auscultation and percussion. Breath sounds decreased. HEART: Rate and Rhythm are regular. First and second heart sounds normal. No murmurs, rubs or gallops. ABDOMEN: Abdominal exam reveals normal bowel sounds. Non-tender and non- distended. No evidence of peritonitis. EXTREMITITES: No clubbing, cyanosis, or edema. Objective - Vital Signs Vital signs: Vital Signs Temp 96.9 F L 10/01/16 04:00 Pulse 89 10/01/16 06:51 Resp 18 10/01/16 06:51 BP 110/67 10/01/16 06:51 Pulse Ox 95 10/01/16 06:51 Intake & Output 09/30/16 10/01/16 10/01/16 18:59 06:59 18:59 Intake Total 1320 Output Total 375 575 Balance 945 -575 Weight 83.4 kg Intake: Oral 1320 Output: Urine 375 575 Other: Voiding Method Toilet Toilet Urinal Urinal # Voids 0 # Bowel Movements 1 - Labs CBC & Chem 7: 10/01/16 05:52 09/30/16 06:20 Labs: Abnormal Lab Results - Last 24 Hours (Table) 10/01/16 Range/Units 05:52 RBC 2.55 L (4.30-5.90) m/uL Hgb 8.6 L (13.0-17.5) gm/dL Hct 27.4 L (39.0-53.0) % MCV 107.8 H (80.0-100.0) fL RDW 17.4 H (11.5-15.5) % Plt Count 134 L (150-450) k/uL Lymphocytes # 0.5 L (1.0-4.8) k/uL Microbiology - Last 24 Hours (Table) 09/24/16 14:34 Blood Culture - Final Blood No Growth after 144 hours Assessment and Plan Plan: Assessment: #1. End-stage renal disease maintained on hemodialysis on a Saturday schedule via permacath. #2. Orthostatic hypotension. Cortisol level noted to be on the lower end. ACTH stimulation test was done on September 26 and his cortisol level did go from baseline 11 up to 38 post stimulation. Improved with Florinef. #3. Multiple myeloma maintained on chemotherapy. #4. Anemia of chronic kidney disease. Iron replete. #5. Hypovolemic hyponatremia. Resolved. #6. Hypokalemia related to poor nutritional status. Magnesium normal. Improved. #7. Right IJ thrombus intervened on IV heparin. #8. Urinary retention status post Jimenez catheter placement and removal. Urology following. Plan: Hemodialysis Saturday. Continue Midodrine 10 mg 3 times daily. Continue Florinef 0.1 mg daily. Maintain lactulose as needed for constipation. Potential laparoscopic revision of the peritoneal dialysis catheter today. Surgery following.
[2016-10-01] MEDS: MIDODRINE 5 MG TAB PO SCH ×3 (09:41→17:36)
[2016-10-01 09:50] LABS: Hepatitis B Surface Antibody Negative (Negative)
[2016-10-01] MEDS ORDERED: SODIUM CHLORIDE 0.9% 1,000 ML IV ONE (10:43)
[2016-10-01] MEDS ORDERED: LIDOCAINE 1% 20 ML VIAL (10MG/ML) FOR IV START SQ ONE (10:59)
[2016-10-01] MEDS ORDERED: NEOSTIGMINE 1 MG/ML 10 ML VIAL ONE (11:08)
[2016-10-01] MEDS ORDERED: fentaNYL (PF) 50 MCG/ML 2 ML AMP ONE (11:08)
[2016-10-01] MEDS ORDERED: MIDAZOLAM 2 MG/2 ML VIAL ONE (11:08)
[2016-10-01] MEDS ORDERED: ROCURONIUM BROMIDE 10 MG/ML 10 ML VIAL IV ONE (11:08)
[2016-10-01] MEDS ORDERED: GLYCOPYRROLATE 0.2 MG/ML 2 ML VIAL ONE (11:08)
[2016-10-01] MEDS ORDERED: SUCCINYLCHOLINE CHLORIDE 100 MG/5 ML SYR IV ONE (11:08)
[2016-10-01] MEDS ORDERED: PROPOFOL 10 MG/ML 20 ML VIAL IV ONE (11:08)
[2016-10-01] MEDS ORDERED: ceFAZolin 2 GM in SODIUM CHLORIDE 0.9% 100 ML IVPB STA (11:12)
--- NOTE | 2016-10-01 11:12 | P.PN ---
Progress Note - Text I discussed this patient's case further with the family and also with nephrology. Because of the poor drainage from yesterday's attempt at a one liter fill we have decided to proceed with a laparoscopic revision of his catheter at this time. The risks of bleeding, infection, bowel injury, persistent catheter malfunction were discussed. He understands and wishes to proceed.
[2016-10-01] MEDS ORDERED: BUPIVACAIN-EPI 0.25%-1:200,000 30 ML VIAL SQ ONE ×2 (11:45→11:55)
--- NOTE | 2016-10-01 12:02 | P.PN ---
Subjective orthostatic hypotention Patient is a 70-year-old male patient of [facility] who presented to [facility] emergency room with chief complaints of dizziness and weakness. Patient states that he has been having episodes of orthostatic hypotension, especially after hemodialysis sessions where his blood pressure drops significantly when standing up. His symptoms have been worsening and recently affecting his daily activity due to severe dizziness and weakness he states he was hardly able to stand up. Patient was evaluated in the emergency room, he had significant orthostatic changes, his troponin was also slightly elevated, he was admitted to telemetry floor for further evaluation and treatment. Patient has known history of multiple myeloma he has been receiving chemotherapy his last treatment was on Saturday. Patient also has known history of end-stage renal disease on hemodialysis which he receives through a catheter in the right subclavicular area, he also states that he had a peritoneal catheter placed to a and a half weeks ago as he plans to switch to peritoneal dialysis however he has not started that yet. 09/27/2016 patient is currently lying in bed comfortably. Yesterday he had evidence of urinary retention. Urology was consulted and Jimenez catheter had to be inserted. It was atraumatic insertion of the catheter. Now he has evidence of significant hematuria. Denies any nausea or vomiting. Denies any bowel movement changes 09/28/2016 hematuria has improved. Hematology has restarted the IV heparin for the right IJ clot. Patient sitting up in bedside chair. No new complaints. Flushing for the peritoneal dialysis has been started. Dr. Claros is following. Patient denies any chest pain or shortness of breath. Denies any nausea or vomiting. Reports having bowel movements. 10/01/2016 patient scheduled for laparoscopic revision of peritoneal dialysis catheter with Dr. Tolbert today. Patient also noted have increased swelling in his right arm. His urine is now clear. However he does feel that he is not completely emptying the bladder. Denies any burning with urination. Denies any chest pain or shortness of breath. He reports having bowel movements. Denies any nausea or vomiting Objective - Vital Signs Vital signs: Vital Signs Temp 97.2 F L 10/01/16 10:37 Pulse 95 10/01/16 10:37 Resp 16 10/01/16 10:37 BP 152/85 10/01/16 10:37 Pulse Ox 98 10/01/16 10:37 Intake & Output 09/30/16 10/01/16 10/01/16 18:59 06:59 18:59 Intake Total 1320 250 Output Total 375 575 Balance 945 -575 250 Weight 83.4 kg Intake: IV 250 Oral 1320 Output: Urine 375 575 Other: Voiding Method Toilet Toilet Toilet Urinal Urinal Urinal # Voids 0 # Bowel Movements 1 - Exam Head normocephalic Neck supple Lungs clear to auscultation bilaterally no wheezing or crackles Heart regular rate and rhythm S1-S2, no rub or gallop Abdomen is soft mild tenderness with palpation suprapubic area nondistended positive bowel sounds no hepatosplenomegaly Extremities no edema Neuro alert and orientated to 3 - Labs CBC & Chem 7: 10/01/16 05:52 09/30/16 06:20 Labs: Abnormal Lab Results - Last 24 Hours (Table) 10/01/16 Range/Units 05:52 RBC 2.55 L (4.30-5.90) m/uL Hgb 8.6 L (13.0-17.5) gm/dL Hct 27.4 L (39.0-53.0) % MCV 107.8 H (80.0-100.0) fL RDW 17.4 H (11.5-15.5) % Plt Count 134 L (150-450) k/uL Lymphocytes # 0.5 L (1.0-4.8) k/uL Microbiology - Last 24 Hours (Table) 09/24/16 14:34 Blood Culture - Final Blood No Growth after 144 hours Assessment and Plan Plan: 1. Orthostatic hypotension during dialysis. Orthostatic blood pressures have shown improvement with the Florinef. Cortisol increased from 11 up to 38 poststimulation. Case discussed with Dr. Salcedo he is recommending patient follow-up with endocrinology outpatient. Orthostatics from yesterday evening were positive. Continue to monitor orthostatics 2. End-stage renal disease on hemodialysis Saturday via permacath. Patient scheduled for hemodialysis tomorrow. Patient has PD catheter in place surgery and nephrology are following. Patient's peritoneal dialysis catheter not functioning correctly. He is undergoing laparoscopic revision today. 3. Multiple myeloma on chemotherapy. Oncology following 4. Anemia of chronic kidney disease 5. Hypovolemic hyponatremia resolved 6. Right IJ thrombus evaluated by vascular surgery. Patient currently off of IV heparin. Continue Eliquis for anticoagulation 7. Urinary retention status post Jimenez catheter placement. Urology is following. Urology has adjusted medications discontinued Flomax and enablex. continued Uroxatral. Jimenez catheter removed. Patient may be having symptoms of urinary retention or possibly could be related to the peritoneal dialysis calisthenic or not functioning correctly and retaining fluid. Will monitor to see if we need to reinsert catheter 8. Hematuria secondary to Traumatic Jimenez catheter insertion. Now resolved 9. Mild elevated troponin level without any evidence of acute coronary syndrome 10. Swelling in right arm with check venous Doppler to rule out DVT I performed an examination of the patient and discussed their management with the physician Spouting Installer. I have reviewed the Physician Spouting Installer's notes and agree with the documented findings and plan of care
[2016-10-01] MEDS ORDERED: HYDROmorphone 1 MG/ML 1 ML SYRINGE IVP PRN (12:56)
[2016-10-01] MEDS ORDERED: HYDROcodone/APAP 5-325MG 1 EACH TAB PO PRN (12:56)
--- NOTE | 2016-10-01 13:14 | P.OP ---
Date of Procedure: 10/01/16 Preoperative Diagnosis: Postoperative Diagnosis: Procedure(s) Performed: PREOPERATIVE DIAGNOSIS: Malfunctioning peritoneal dialysis catheter POSTOPERATIVE DIAGNOSIS: Same PROCEDURE: Laparoscopic revision peritoneal dialysis catheter with omentopexy SURGEON: Tomasz EBL: Minimal see anesthesia record ANESTHESIA: Gen. COMPLICATIONS: None OPERATIVE PROCEDURE: The patient was brought and placed on the operating room table in the supine position. The patient was placed under general anesthesia at that time. The abdomen was prepped and draped in the usual sterile fashion. A small horizontal incision was made in the left upper quadrant. Entrance into the perineal cavity took place using an optical 5 mm trocar. Full insufflation took place at that point through the trocar. 2 additional 5 mm trochars were placed one in the epigastric region and one in the left upper quadrant. The catheter entrance site was inspected. The omentum was adhesed to the inner portion of the catheter. His was able to be bluntly dissected. The catheter was then placed in the pelvis. Incidentally a distended bladder was noted. I sutured the catheter in place loosely using a 2-0 Ethibond stitch and tied down loosely using the tie knot device. I then took the omentum that was adhesed and pexed it to the anterior abdominal wall in the right upper quadrant. Is again performed using a 2-0 Ethibond stitch. The pneumoperitoneum was evacuated. The skin at all 3 sites was closed using a 4-0 Monocryl stitch. At the end of this procedure the sponge and needle counts were correct. DISPOSITION: Stable to the recovery room Implants: Indications for Procedure: Operative Findings: Description of Procedure:
[2016-10-01] MEDS: GABAPENTIN 100 MG CAP PO SCH (20:50)
[2016-10-01] MEDS: ALFUZOSIN ER 10 MG PO SCH (20:50)
[2016-10-01] MEDS: DOCUSATE 100 MG CAP PO SCH (20:50)
[2016-10-01] MEDS: ATORVASTATIN 10 MG TAB PO SCH (20:50)
--- NOTE | 2016-10-01 22:59 | US ---
EXAMINATION TYPE: US venous doppler duplex UE RT DATE OF EXAM: 10/01/2016 3:58 PM COMPARISON: NONE CLINICAL HISTORY: rule out DVT. SIDE PERFORMED: right Right Arm: Right mid and proximal IJV positive for non occluding clot. Right Subclavian, Brachial, Basilic, Cephalic, Radial and Ulnar vein negative for clot IMPRESSION: Exam positive for DVT internal jugular vein.
[2016-10-02] MEDS: MIDODRINE 5 MG TAB PO SCH ×3 (06:38→15:27)
[2016-10-02] MEDS: PANTOPRAZOLE 40 MG TABLET PO SCH (06:38)
[2016-10-02 06:49] LABS: Anisocytosis Slight; Basophils % (A) 0 %; CH 33.6; CHCM 31.8; Eosinophils # (A) 0.1 k/uL (0-0.7); Eosinophils % (A) 2 %; HCT 24.7 % (39.0-53.0); HGB 7.9 gm/dL (13.0-17.5); Luc # (Auto) 0.06; Luc % (Auto) 1; Lymphocytes # (A) 0.3 k/uL (1.0-4.8); Lymphocytes % (A) 5 %; MCH 34.1 pg (25.0-35.0); MCHC 32.1 g/dL (31.0-37.0); MCV 106.3 fL (80.0-100.0); Macrocytosis Marked; Mean Platelet Volume 8.1; Monocytes # (A) 0.3 k/uL (0-1.0); Monocytes % (A) 5 %; Neutrophils # (A) 4.2 k/uL (1.3-7.7); Neutrophils % (A) 86 %; RBC 2.32 m/uL (4.30-5.90); RDW 17.3 % (11.5-15.5); WBC 4.8 k/uL (3.8-10.6); WBC (Perox) 4.89
[2016-10-02] MEDS: ALLOPURINOL 100 MG TAB PO SCH (07:40)
[2016-10-02] MEDS: valACYclovir 500 MG TAB PO SCH (07:40)
[2016-10-02] MEDS: FLUDROCORTISONE 0.1 MG TAB PO SCH (07:40)
[2016-10-02 07:46] LABS: Calcium 8.1 mg/dL (8.4-10.2); Potassium 3.6 mmol/L (3.5-5.1)
--- NOTE | 2016-10-02 09:24 | P.PN ---
Subjective Patient is seen in follow-up for end-stage renal disease. He is maintained on hemodialysis on a Saturday schedule via permacath. He has a peritoneal dialysis catheter in place. Patient presented with generalized weakness and orthostatic hypotension. He was started on Florinef this admission and orthostasis has improved. Currently resting in bed. Denies chest pain or shortness of breath. No vomiting or diarrhea. He's also noted to have a right IJ clot for which he is on anticoagulation. Peritoneal dialysis was started with low volume exchanges also underwent a 1 L exchange - however he did not drain well. The catheter is not in the correct position and he underwent laparoscopic revision on October 01. Vital signs are stable. General: The patient appeared well nourished and normally developed. HEENT: Head exam is unremarkable. Neck is without jugular venous distension. LUNGS: Lungs are clear to auscultation and percussion. Breath sounds decreased. HEART: Rate and Rhythm are regular. First and second heart sounds normal. No murmurs, rubs or gallops. ABDOMEN: Abdominal exam reveals normal bowel sounds. Non-tender and non- distended. No evidence of peritonitis. EXTREMITITES: No clubbing, cyanosis, or edema. Objective - Vital Signs Vital signs: Vital Signs Temp 97.9 F 10/02/16 08:00 Pulse 99 10/02/16 08:00 Resp 16 10/02/16 08:00 BP 158/84 10/02/16 08:11 Pulse Ox 95 10/02/16 08:00 Intake & Output 10/01/16 10/02/16 10/02/16 18:59 06:59 18:59 Intake Total 900 20 480 Output Total 205 600 Balance 695 -580 480 Weight 84.2 kg Intake: IV 900 20 0.9% NS 10 mL 20 Oral 480 Output: Urine 200 600 Estimated Blood Loss 5 Other: Voiding Method Indwelling Catheter Indwelling Catheter Indwelling Catheter - Labs CBC & Chem 7: 10/02/16 05:51 10/02/16 05:51 Labs: Abnormal Lab Results - Last 24 Hours (Table) 10/02/16 10/02/16 Range/Units 05:51 05:51 RBC 2.32 L (4.30-5.90) m/uL Hgb 7.9 L (13.0-17.5) gm/dL Hct 24.7 L (39.0-53.0) % MCV 106.3 H (80.0-100.0) fL RDW 17.3 H (11.5-15.5) % Plt Count 136 L (150-450) k/uL Lymphocytes # 0.3 L (1.0-4.8) k/uL BUN 24 H (9-20) mg/dL Creatinine 3.80 H (0.66-1.25) mg/dL Calcium 8.1 L (8.4-10.2) mg/dL Assessment and Plan Plan: Assessment: #1. End-stage renal disease maintained on hemodialysis on a Saturday schedule via permacath. #2. Orthostatic hypotension. Cortisol level noted to be on the lower end. ACTH stimulation test was done on September 26 and his cortisol level did go from baseline 11 up to 38 post stimulation. Improved with Florinef. #3. Multiple myeloma maintained on chemotherapy. #4. Anemia of chronic kidney disease. Iron replete. #5. Hypovolemic hyponatremia. Resolved. #6. Hypokalemia related to poor nutritional status. Magnesium normal. Improved. 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 #8. Urinary retention status post Jimenez catheter placement and removal. Urology following. Plan: Hemodialysis today with goal 1-1/2-2 L ultrafiltration.. Continue Midodrine 10 mg 3 times daily. Continue Florinef 0.1 mg daily. Maintain lactulose as needed for constipation. Once this peritoneal dialysis catheter incision is healed, will start PD training and eventually transition him over to peritoneal dialysis.
[2016-10-02 10:31] VITALS: BMI 27.3
--- NOTE | 2016-10-02 13:47 | P.PN ---
Subjective Principal diagnosis: orthostatic hypotention Patient is a 70-year-old male patient of [facility] who presented to [facility] emergency room with chief complaints of dizziness and weakness. Patient states that he has been having episodes of orthostatic hypotension, especially after hemodialysis sessions where his blood pressure drops significantly when standing up. His symptoms have been worsening and recently affecting his daily activity due to severe dizziness and weakness he states he was hardly able to stand up. Patient was evaluated in the emergency room, he had significant orthostatic changes, his troponin was also slightly elevated, he was admitted to telemetry floor for further evaluation and treatment. Patient has known history of multiple myeloma he has been receiving chemotherapy his last treatment was on Saturday. Patient also has known history of end-stage renal disease on hemodialysis which he receives through a catheter in the right subclavicular area, he also states that he had a peritoneal catheter placed to a and a half weeks ago as he plans to switch to peritoneal dialysis however he has not started that yet. Objective - Vital Signs Vital signs: Vital Signs Temp 97.6 F 10/02/16 11:05 Pulse 99 10/02/16 08:00 Resp 16 10/02/16 11:05 BP 165/74 10/02/16 11:05 Pulse Ox 95 10/02/16 11:05 Intake & Output 10/01/16 10/02/16 10/02/16 18:59 06:59 18:59 Intake Total 900 20 480 Output Total 205 600 Balance 695 -580 480 Weight 84.2 kg 84.2 kg Intake: IV 900 20 0.9% NS 10 mL 20 Oral 480 Output: Urine 200 600 Estimated Blood Loss 5 Other: Voiding Method Indwelling Catheter Indwelling Catheter Indwelling Catheter - Exam In general patient is alert and oriented 3 in no apparent distress HEENT head normocephalic and atraumatic Neck is supple no JVD no goiter no lymphadenopathy Chest exam reveals a few scattered rhonchi no wheezing Cardiac exam reveals regular heart sounds S1 and S2 no gallops no murmurs Abdomen is soft nontender no organomegaly Extremity exam reveals no edema no cyanosis or clubbing - Labs CBC & Chem 7: 10/02/16 05:51 10/02/16 05:51 Labs: Abnormal Lab Results - Last 24 Hours (Table) 10/02/16 10/02/16 Range/Units 05:51 05:51 RBC 2.32 L (4.30-5.90) m/uL Hgb 7.9 L (13.0-17.5) gm/dL Hct 24.7 L (39.0-53.0) % MCV 106.3 H (80.0-100.0) fL RDW 17.3 H (11.5-15.5) % Plt Count 136 L (150-450) k/uL Lymphocytes # 0.3 L (1.0-4.8) k/uL BUN 24 H (9-20) mg/dL Creatinine 3.80 H (0.66-1.25) mg/dL Calcium 8.1 L (8.4-10.2) mg/dL Assessment and Plan Plan: #1 orthostatic hypotension with dizziness and severe weakness #2 end-stage renal disease on hemodialysis, patient plans to switch to peritoneal dialysis, has catheter already inserted #3 underlying history of multiple myeloma currently receiving chemotherapy his last session was last Saturday #4 mild elevation in troponin level without any chest pain At this time patient is admitted to telemetry floor, Carotid doppler revealed evidence of Jugular vein thrombus patient was evaluated by Dr Ross recommendation is to give anticoagulation until catheter is removed, patient was started on IV heparin, and then switched to Eliquis, this was discontinued yesterday due to procedure on his peritoneal dialysis catheter, at this time will resume Eliquis at 2.5 mg twice daily #5 anemia hemoglobin 7.9 will monitor if hemoglobin continues to drop plan for blood cell transfusion was next dialysis session on cardiology and nephrology consultation were requested possibility of Srikanth disease, checking Cortisol level
[2016-10-02] MEDS: APIXABAN 2.5 MG TABLET PO SCH ×2 (15:27→19:59)
[2016-10-02] MEDS: DOCUSATE 100 MG CAP PO SCH (19:56)
[2016-10-02] MEDS: GABAPENTIN 100 MG CAP PO SCH (19:59)
[2016-10-02] MEDS: ATORVASTATIN 10 MG TAB PO SCH (19:59)
[2016-10-02] MEDS: ALFUZOSIN ER 10 MG PO SCH (19:59)
[2016-10-03 05:50] VITALS: RESP 18
[2016-10-03] MEDS: MIDODRINE 5 MG TAB PO SCH ×3 (06:15→16:59)
[2016-10-03] MEDS: PANTOPRAZOLE 40 MG TABLET PO SCH (06:16)
[2016-10-03 06:45] LABS: Anisocytosis Slight; Basophils % (A) 0 %; CH 33.9; CHCM 31.4; Eosinophils # (A) 0.1 k/uL (0-0.7); Eosinophils % (A) 4 %; HCT 22.2 % (39.0-53.0); HDW 2.31; HGB 8.1 gm/dL (13.0-17.5); Luc # (Auto) 0.07; Luc % (Auto) 2; Lymphocytes # (A) 0.3 k/uL (1.0-4.8); Lymphocytes % (A) 8 %; MCH 39.8 pg (25.0-35.0); MCHC 36.7 g/dL (31.0-37.0); MCV 108.6 fL (80.0-100.0); Macrocytosis Marked; Mean Platelet Volume 7.8; Monocytes # (A) 0.2 k/uL (0-1.0); Monocytes % (A) 6 %; Neutrophils # (A) 2.8 k/uL (1.3-7.7); Neutrophils % (A) 80 %; RBC 2.04 m/uL (4.30-5.90); RDW 17.1 % (11.5-15.5); WBC 3.5 k/uL (3.8-10.6); WBC (Perox) 3.08
[2016-10-03 06:58] LABS: Potassium 3.6 mmol/L (3.5-5.1)
[2016-10-03 06:59] LABS: Calcium 8.2 mg/dL (8.4-10.2)
[2016-10-03] MEDS: ALLOPURINOL 100 MG TAB PO SCH (08:55)
[2016-10-03] MEDS: SULFAMETHOX-TMP 400-80MG 1 EACH TAB PO SCH (08:55)
[2016-10-03] MEDS: valACYclovir 500 MG TAB PO SCH (08:55)
[2016-10-03] MEDS: APIXABAN 2.5 MG TABLET PO SCH ×2 (08:55→22:04)
[2016-10-03] MEDS: FLUDROCORTISONE 0.1 MG TAB PO SCH (08:55)
--- NOTE | 2016-10-03 08:55 | P.PN ---
Subjective Patient is seen in follow-up for end-stage renal disease. He is maintained on hemodialysis on a Saturday schedule via permacath. He has a peritoneal dialysis catheter in place. Patient presented with generalized weakness and orthostatic hypotension. He was started on Florinef this admission and orthostasis has improved. Currently resting in bed. Denies chest pain or shortness of breath. No vomiting or diarrhea. He's also noted to have a right IJ clot for which he is on anticoagulation per vascular surgery recommendations. Peritoneal dialysis was started with low volume exchanges also underwent a 1 L exchange - however he did not drain well. The catheter was not in the correct position and he underwent laparoscopic revision on October 01. Vital signs are stable. General: The patient appeared well nourished and normally developed. HEENT: Head exam is unremarkable. Neck is without jugular venous distension. LUNGS: Lungs are clear to auscultation and percussion. Breath sounds decreased. HEART: Rate and Rhythm are regular. First and second heart sounds normal. No murmurs, rubs or gallops. ABDOMEN: Abdominal exam reveals normal bowel sounds. Non-tender and non- distended. No evidence of peritonitis. EXTREMITITES: No clubbing, cyanosis, or edema. Objective - Vital Signs Vital signs: Vital Signs Temp 97.9 F 10/03/16 04:00 Pulse 119 H 10/03/16 04:00 Resp 18 10/03/16 04:00 BP 150/77 10/03/16 04:00 Pulse Ox 97 10/03/16 04:00 Intake & Output 10/02/16 10/03/16 10/03/16 18:59 06:59 18:59 Intake Total 480 20 75 Output Total 625 Balance -145 20 75 Weight 84.2 kg 81.9 kg Intake: IV 20 0.9% NS 10 mL 20 Oral 480 75 Output: Urine 625 Other: Voiding Method Indwelling Catheter Indwelling Catheter - Labs CBC & Chem 7: 10/03/16 05:53 10/03/16 05:53 Labs: Abnormal Lab Results - Last 24 Hours (Table) 10/03/16 10/03/16 Range/Units 05:53 05:53 WBC 3.5 L (3.8-10.6) k/uL RBC 2.04 L (4.30-5.90) m/uL Hgb 8.1 L (13.0-17.5) gm/dL Hct 22.2 L (39.0-53.0) % MCV 108.6 H (80.0-100.0) fL MCH 39.8 H (25.0-35.0) pg RDW 17.1 H (11.5-15.5) % Plt Count 121 L (150-450) k/uL Lymphocytes # 0.3 L (1.0-4.8) k/uL Creatinine 2.78 H (0.66-1.25) mg/dL Calcium 8.2 L (8.4-10.2) mg/dL Assessment and Plan Plan: Assessment: #1. End-stage renal disease maintained on hemodialysis on a Saturday schedule via permacath. #2. Orthostatic hypotension. Cortisol level noted to be on the lower end. ACTH stimulation test was done on September 26 and his cortisol level did go from baseline 11 up to 38 post stimulation. Improved with Florinef. #3. Multiple myeloma maintained on chemotherapy. #4. Anemia of chronic kidney disease. Iron replete. #5. Hypovolemic hyponatremia. Resolved. #6. Hypokalemia related to poor nutritional status. Magnesium normal. Improved. 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 #8. Urinary retention status post Jimenez catheter placement and removal. Urology following. Plan: Hemodialysis tomorrow with goal 1-1/2-2 L ultrafiltration.. Continue Midodrine 10 mg 3 times daily. Continue Florinef 0.1 mg daily. Maintain lactulose as needed for constipation. Once this peritoneal dialysis catheter incision is healed, will start PD training and eventually transition him over to peritoneal dialysis. Maintain anticoagulation per vascular surgery recommendations. I did discuss the risk of thromboembolic events with the patient. Patient understands. Permacath will be removed once he is transitioned over the PD.
--- NOTE | 2016-10-03 09:18 | CDI ---
In responding to this query, please exercise your independent professional judgment. The [facility] Coding Staff and Clinical Documentation Specialists appreciate your assistance in clarifying documentation, maintaining compliance with coding guidelines, accurately documenting patients condition and capturing severity of illness. The fact that a question is asked does not imply that any particular answer is desired or expected. Communication forms are a method of clarifying documentation and are not made part of the Legal Health Record. Thank you in advance for your clarification. Last Revision, March 2015 Maira Whyte [address] [facility] [place] [address] Documentation Clarification Form Date: 10/03/2016 9:08:00 AM From: Lisa Rodriguez CCS, CCDS Admit Date: 09/24/2016 4:00:00 PM Patient Name: Dean Earl Visit Number: [id number] Discharge Date: Dr. Bhavin Tolbert: 70 yo male, admitted with orthostatic hypotension possibly due to hemodialysis. On October 01, patient had a laparoscopic revision peritoneal dialysis catheter with omentopexy. Patient history: On Hemodialysis, transitioning to peritoneal dialysis. In your professional opinion, can you please clarify the omentopexy? Greater Omentum Lesser Omentum Other Please document in your progress notes or in an addendum to the operative report order to capture severity of illness and risk of mortality. Include clinical findings that support your diagnosis. FYI: Press F11 to launch patient chart. Place X here if this finding has no clinical significance, is not applicable or if you are not able to provide any additional documentation. Thank You. JOSEE
[2016-10-03] MEDS: DARBEPOETIN ALFA 40 MCG/0.4 ML SYRINGE SQ SCH (12:35)
--- NOTE | 2016-10-03 19:41 | P.PN ---
Subjective Principal diagnosis: orthostatic hypotention Patient is a 70-year-old male patient of [facility] who presented to [facility] emergency room with chief complaints of dizziness and weakness. Patient states that he has been having episodes of orthostatic hypotension, especially after hemodialysis sessions where his blood pressure drops significantly when standing up. His symptoms have been worsening and recently affecting his daily activity due to severe dizziness and weakness he states he was hardly able to stand up. Patient was evaluated in the emergency room, he had significant orthostatic changes, his troponin was also slightly elevated, he was admitted to telemetry floor for further evaluation and treatment. Patient has known history of multiple myeloma he has been receiving chemotherapy his last treatment was on Saturday. Patient also has known history of end-stage renal disease on hemodialysis which he receives through a catheter in the right subclavicular area, he also states that he had a peritoneal catheter placed to a and a half weeks ago as he plans to switch to peritoneal dialysis however he has not started that yet. Objective - Vital Signs Vital signs: Vital Signs Temp 97.6 F 10/03/16 16:00 Pulse 100 10/03/16 16:00 Resp 18 10/03/16 16:00 BP 145/70 10/03/16 16:00 Pulse Ox 97 10/03/16 16:00 Intake & Output 10/03/16 10/03/16 10/04/16 06:59 18:59 06:59 Intake Total 20 675 Output Total 375 Balance 20 300 Weight 81.9 kg Intake: IV 20 0.9% NS 10 mL 20 Oral 675 Output: Urine 375 Other: Voiding Method Indwelling Catheter Indwelling Catheter - Exam In general patient is alert and oriented 3 in no apparent distress HEENT head normocephalic and atraumatic Neck is supple no JVD no goiter no lymphadenopathy Chest exam reveals a few scattered rhonchi no wheezing Cardiac exam reveals regular heart sounds S1 and S2 no gallops no murmurs Abdomen is soft nontender no organomegaly Extremity exam reveals no edema no cyanosis or clubbing - Labs CBC & Chem 7: 10/03/16 05:53 10/03/16 05:53 Labs: Abnormal Lab Results - Last 24 Hours (Table) 10/03/16 10/03/16 Range/Units 05:53 05:53 WBC 3.5 L (3.8-10.6) k/uL RBC 2.04 L (4.30-5.90) m/uL Hgb 8.1 L (13.0-17.5) gm/dL Hct 22.2 L (39.0-53.0) % MCV 108.6 H (80.0-100.0) fL MCH 39.8 H (25.0-35.0) pg RDW 17.1 H (11.5-15.5) % Plt Count 121 L (150-450) k/uL Lymphocytes # 0.3 L (1.0-4.8) k/uL Creatinine 2.78 H (0.66-1.25) mg/dL Calcium 8.2 L (8.4-10.2) mg/dL Assessment and Plan Plan: #1 orthostatic hypotension with dizziness and severe weakness #2 end-stage renal disease on hemodialysis, patient plans to switch to peritoneal dialysis, has catheter already inserted #3 underlying history of multiple myeloma currently receiving chemotherapy his last session was last Saturday #4 mild elevation in troponin level without any chest pain At this time patient is admitted to telemetry floor, Carotid doppler revealed evidence of Jugular vein thrombus patient was evaluated by Dr Ross recommendation is to give anticoagulation until catheter is removed, patient was started on IV heparin, and then switched to Eliquis, this was discontinued yesterday due to procedure on his peritoneal dialysis catheter, at this time will resume Eliquis at 2.5 mg twice daily #5 anemia hemoglobin 8.1 will monitor if hemoglobin continues to drop plan for blood cell transfusion was next dialysis session on cardiology and nephrology consultation were requested #6 poorly functional peritoneal dialysis catheter Dr. Tolbert is following for adjustment of catheter
[2016-10-03] MEDS: ATORVASTATIN 10 MG TAB PO SCH (22:05)
[2016-10-03] MEDS: GABAPENTIN 100 MG CAP PO SCH (22:05)
[2016-10-03] MEDS: DOCUSATE 100 MG CAP PO SCH (22:05)
[2016-10-03] MEDS ORDERED: TAMSULOSIN 0.4 MG CAP.ER.24H PO SCH (22:30)
[2016-10-04] MEDS: MIDODRINE 5 MG TAB PO SCH (06:36)
[2016-10-04] MEDS: PANTOPRAZOLE 40 MG TABLET PO SCH (06:36)
[2016-10-04 06:38] LABS: Anisocytosis Slight; Basophils % (A) 1 %; CH 33.9; CHCM 31.4; Eosinophils # (A) 0.2 k/uL (0-0.7); Eosinophils % (A) 5 %; HDW 2.36; HGB 8.3 gm/dL (13.0-17.5); Luc # (Auto) 0.09; Luc % (Auto) 3; Lymphocytes # (A) 0.4 k/uL (1.0-4.8); Lymphocytes % (A) 11 %; MCH 34.8 pg (25.0-35.0); MCHC 32.1 g/dL (31.0-37.0); MCV 108.4 fL (80.0-100.0); Macrocytosis Marked; Mean Platelet Volume 7.1; Monocytes # (A) 0.2 k/uL (0-1.0); Monocytes % (A) 6 %; Neutrophils # (A) 2.7 k/uL (1.3-7.7); Neutrophils % (A) 76 %; RDW 16.6 % (11.5-15.5); WBC 3.5 k/uL (3.8-10.6); WBC (Perox) 3.64
[2016-10-04 06:50] LABS: Calcium 8.3 mg/dL (8.4-10.2); Potassium 3.5 mmol/L (3.5-5.1)
[2016-10-04 07:24] LABS: Manual Review Performed
[2016-10-04] MEDS ORDERED: HEPARIN SODIUM,PORCINE 5,000 UNIT/ML 1 ML VIAL ONE (08:00)
--- NOTE | 2016-10-04 09:41 | P.PN ---
Subjective Patient is seen in follow-up for end-stage renal disease. He is maintained on hemodialysis on a Saturday schedule via permacath. He has a peritoneal dialysis catheter in place. Patient presented with generalized weakness and orthostatic hypotension. He was started on Florinef this admission and orthostasis has improved. Currently resting in bed. Denies chest pain or shortness of breath. No vomiting or diarrhea. He's also noted to have a right IJ clot for which he is on anticoagulation per vascular surgery recommendations. Peritoneal dialysis was started with low volume exchanges also underwent a 1 L exchange - however he did not drain well. The catheter was not in the correct position and he underwent laparoscopic revision on October 01. No active complaints today. Feels well overall. Vital signs are stable. General: The patient appeared well nourished and normally developed. HEENT: Head exam is unremarkable. Neck is without jugular venous distension. LUNGS: Lungs are clear to auscultation and percussion. Breath sounds decreased. HEART: Rate and Rhythm are regular. First and second heart sounds normal. No murmurs, rubs or gallops. ABDOMEN: Abdominal exam reveals normal bowel sounds. Non-tender and non- distended. No evidence of peritonitis. EXTREMITITES: No clubbing, cyanosis, or edema. Objective - Vital Signs Vital signs: Vital Signs Temp 97.9 F 10/04/16 07:56 Pulse 102 H 10/04/16 07:56 Resp 18 10/04/16 07:56 BP 138/77 10/04/16 07:56 Pulse Ox 96 10/04/16 09:17 Intake & Output 10/03/16 10/04/16 10/04/16 18:59 06:59 18:59 Intake Total 675 Output Total 375 Balance 300 Weight 82.3 kg Intake: Oral 675 Output: Urine 375 Other: Voiding Method Indwelling Catheter Indwelling Catheter - Labs CBC & Chem 7: 10/04/16 06:15 10/04/16 06:15 Labs: Abnormal Lab Results - Last 24 Hours (Table) 10/04/16 10/04/16 Range/Units 06:15 06:15 WBC 3.5 L (3.8-10.6) k/uL RBC 2.40 L (4.30-5.90) m/uL Hgb 8.3 L (13.0-17.5) gm/dL Hct 26.0 L (39.0-53.0) % MCV 108.4 H (80.0-100.0) fL RDW 16.6 H (11.5-15.5) % Lymphocytes # 0.4 L (1.0-4.8) k/uL BUN 26 H (9-20) mg/dL Creatinine 3.31 H (0.66-1.25) mg/dL Calcium 8.3 L (8.4-10.2) mg/dL Assessment and Plan Plan: Assessment: #1. End-stage renal disease maintained on hemodialysis on a Saturday schedule via permacath. #2. Orthostatic hypotension. Cortisol level noted to be on the lower end. ACTH stimulation test was done on September 26 and his cortisol level did go from baseline 11 up to 38 post stimulation. Improved with Florinef. #3. Multiple myeloma maintained on chemotherapy. #4. Anemia of chronic kidney disease. Iron replete. #5. Hypovolemic hyponatremia. Resolved. #6. Hypokalemia related to poor nutritional status. Magnesium normal. Improved. 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 #8. Urinary retention status post Jimenez catheter placement and removal. Urology following. Plan: Hemodialysis today with goal 1-1/2-2 L ultrafiltration.. Continue Midodrine 10 mg 3 times daily. Continue Florinef 0.1 mg daily. Maintain lactulose as needed for constipation. Once this peritoneal dialysis catheter incision is healed, will start PD training and eventually transition him over to peritoneal dialysis. Maintain anticoagulation per vascular surgery and hematology recommendations. I did discuss the risk of thromboembolic events with the patient. Patient understands. Permacath will be removed once he is transitioned over the PD. Potential discharge today after dialysis.
[2016-10-04 10:56] VITALS: TEMP 98.6
--- NOTE | 2016-10-04 12:12 | P.DS ---
Providers Date of admission: 09/24/16 16:00 Expected date of discharge: 10/04/16 Attending physician: Fred Lawrence Consults: 09/24/16 16:00 Consult Physician Routine Consulting Provider: Darian Pope Consult Reason/Comments: orthoHypo Do you want consulting provider notified?: Yes Consult Physician Urgent Consulting Provider: Abbi Hawkins Consult Reason/Comments: known Do you want consulting provider notified?: Yes 09/25/16 16:31 Consult Physician Urgent Consulting Provider: Coy Garrett Consult Reason/Comments: Right carotid thrombus Do you want consulting provider notified?: Yes 09/26/16 15:33 Consult Physician Routine Consulting Provider: Leeroy Whitt Consult Reason/Comments: anticoagulation Do you want consulting provider notified?: Yes 09/26/16 17:48 Consult Physician Routine Consulting Provider: Juan Baez Consult Reason/Comments: Retention Do you want consulting provider notified?: Yes 09/26/16 17:49 Consult Physician Routine Consulting Provider: Bhavin Tolbert Consult Reason/Comments: Assess PD catheter Do you want consulting provider notified?: Yes Primary care physician: Sadie Shaikh [facility] Course: Discharge diagnosis 1. Orthostatic hypotension during dialysis. Orthostatic blood pressures have shown improvement with the Florinef. Cortisol increased from 11 up to 38 poststimulation. Case discussed with Dr. Salcedo he is recommending patient follow-up with endocrinology outpatient. Orthostatics improved 2. End-stage renal disease on hemodialysis Saturday via permacath. Patient scheduled for hemodialysis tomorrow. Patient has PD catheter in place surgery and nephrology are following. Patient's peritoneal dialysis catheter not functioning correctly. He is undergoing laparoscopic revision today. 3. Multiple myeloma on chemotherapy. Oncology following 4. Anemia of chronic kidney disease 5. Hypovolemic hyponatremia resolved 6. Right IJ thrombus evaluated by vascular surgery. Patient currently off of IV heparin. Continue Eliquis for anticoagulation 7. Urinary retention status post Solares catheter placement. Urology is following. Urology has adjusted medications discontinued Flomax and enablex. continued Uroxatral. Patient continued to have urinary retention Solares catheter had to be reinserted during this admission. Flomax restarted. 8. Hematuria secondary to Traumatic Solares catheter insertion. Now resolved 9. Mild elevated troponin level without any evidence of acute coronary syndrome Hospital course Patient is a 70-year-old male patient of [facility] who presented to [facility] emergency room with chief complaints of dizziness and weakness. Patient states that he has been having episodes of orthostatic hypotension, especially after hemodialysis sessions where his blood pressure drops significantly when standing up. His symptoms have been worsening and recently affecting his daily activity due to severe dizziness and weakness he states he was hardly able to stand up. Patient was evaluated in the emergency room, he had significant orthostatic changes, his troponin was also slightly elevated, he was admitted to telemetry floor for further evaluation and treatment. Patient has known history of multiple myeloma he has been receiving chemotherapy his last treatment was on Saturday. Patient also has known history of end-stage renal disease on hemodialysis which he receives through a catheter in the right subclavicular area, he also states that he had a peritoneal catheter placed to a and a half weeks ago as he plans to switch to peritoneal dialysis however he has not started that yet. Patient' s orthostatic hypotension improved with the addition of Florinef. Midrin was also added during this admission. Patient is currently receiving hemodialysis via his permacath. There is a right IJ thrombus. Patient evaluated by vascular surgery as well as hematology. Initially placed on IV heparin but after a traumatic Solares catheter insertion with severe hematuria the IV heparin was discontinued. Hematuria resolved. And patient was started on Eliquis. Patient will continue the Eliquis until the permacath can be removed and he is started on the peritoneal dialysis. He was evaluated by surgical service in regards to his peritoneal catheter there had been some leakage with the different flushes. He therefore underwent a laparoscopic revision of peritoneal dialysis catheter. And will likely switch over to peritoneal dialysis in a few weeks when okayed by Dr. Salcedo and Dr. Claros. Patient still has urinary retention. He will require to be discharged with the Solares catheter and will have him follow-up with urology outpatient. Urology did resume the Uroxatral and he was restarted on Flomax as well. We'll continue to monitor. Patient will be following up with oncology regards to his history of multiple myeloma. He is receiving dialysis today with 1 unit of blood during dialysis. Patient is medically stable for discharge. Please refer to chart for any further details. Patient Condition at Discharge: Stable Plan - Discharge Summary New Discharge Prescriptions: Fludrocortisone [Florinef] 0.1 mg PO DAILY #30 tab Midodrine [ProAmatine] 10 mg PO AC-TID #90 tab Tamsulosin [Flomax] 0.4 mg PO HS #30 cap Discharge Medication List Alfuzosin HCl [Alfuzosin HCl ER] 10 mg PO HS 08/18/16 [History] Allopurinol [Zyloprim] 100 mg PO QAM 08/18/16 [History] Omeprazole [PriLOSEC] 20 mg PO QAM 08/18/16 [History] Simvastatin [Zocor] 20 mg PO HS 08/18/16 [History] Sulfamethox-Tmp 400-80Mg [Bactrim SS 400-80 mg] 1 tab PO MOWEFR 08/18/16 [ History] valACYclovir [Valtrex] 500 mg PO QAM 08/18/16 [History] Lactulose 20 gm PO TID PRN 08/20/16 [History] Docusate [Colace] 100 mg PO HS 09/24/16 [History] Gabapentin [Neurontin] 100 mg PO HS 09/24/16 [History] Apixaban [Eliquis] 2.5 mg PO BID tab 10/04/16 [Rx] Fludrocortisone [Florinef] 0.1 mg PO DAILY #30 tab 10/04/16 [Rx] Midodrine [ProAmatine] 10 mg PO AC-TID #90 tab 10/04/16 [Rx] Tamsulosin [Flomax] 0.4 mg PO HS #30 cap 10/04/16 [Rx] Follow up Appointment(s)/Referral(s): Leeroy Whitt MD [STAFF PHYSICIAN] - 10/09/16 1:30 pm Sadie Shaikh DO [Primary Care Provider] - 1 Week Eriberto Salcedo DO [STAFF PHYSICIAN] - 1 Week Jeremy Ojeda MD [STAFF PHYSICIAN] - 1 Week Activity/Diet/Wound Care/Special Instructions: Please spanish moss picker free month supply of Eliquis from [facility] on discharge. Diet: Renal Activity: as tolerated Keep solares catheter in place and follow up with urology in 1 week Discharge Disposition: HOME SELF-CARE
[2016-10-04] MEDS: FLUDROCORTISONE 0.1 MG TAB PO SCH (15:37)
[2016-10-04] MEDS: APIXABAN 2.5 MG TABLET PO SCH (15:37)
[2016-10-04 16:14] VITALS: BP 139/80; PULSE 93
--- NOTE | 2016-10-05 15:44 | CDI ---
In responding to this query, please exercise your independent professional judgment. The [facility] Coding Staff and Clinical Documentation Specialists appreciate your assistance in clarifying documentation, maintaining compliance with coding guidelines, accurately documenting patients condition and capturing severity of illness. The fact that a question is asked does not imply that any particular answer is desired or expected. Communication forms are a method of clarifying documentation and are not made part of the Legal Health Record. Thank you in advance for your clarification. Last Revision, March 2015 Maira Whyte [address] [facility] [place] [address] Documentation Clarification Form Date: 10/03/2016 9:08:00 AM From: Lisa Rodriguez Admit Date: 09/24/2016 4:00:00 PM Patient Name: Dean Earl Visit Number: [id number] Discharge Date: Dr. Bhavin Tolbert 70 yo male, admitted with orthostatic hypotension possibly due to hemodialysis. On October 01, patient had a laparoscopic revision peritoneal dialysis catheter with omentopexy. Patient history: On Hemodialysis, transitioning to peritoneal dialysis. In your professional opinion, can you please clarify the omentopexy? Greater Omentum Lesser Omentum Other Please document in an addendum to your procedure note, in order to capture severity of illness and risk of mortality. Include clinical findings that support your diagnosis. FYI: Press F11 to launch patient chart. ____xxx_ Place X here if this finding has no clinical significance, is not applicable or if you are not able to provide any additional documentation. Thank You. JOSEE
== END 2016-10-04 16:18 | disposition home or self-care (01) | DRG 981 ==
LOC: EC 14:20 → 6SEL 16:00
PROVIDERS: ADMIT Internal Medicine; ATTEND Internal Medicine
PROC: 5A1D60Z (ICD-10-PCS; 2016-09-25)
PROC: 3E1M39Z Irrigation of Peritoneal Cavity using Dialysate, Percutaneous Approach (ICD-10-PCS; 2016-09-28)
PROC: 0DQS4ZZ (ICD-10-PCS; 2016-10-01)
PROC: 0WWG40Z Revision of Drainage Device in Peritoneal Cavity, Percutaneous Endoscopic Approach (ICD-10-PCS; principal; 2016-10-01 07:30)
DX: I95.3 Hypotension of hemodialysis (principal); N18.6 End stage renal disease; C90.00 Multiple myeloma not having achieved remission; I82.C11 Acute embolism and thrombosis of right internal jugular vein; I12.0 Hypertensive chronic kidney disease with stage 5 chronic kidney disease or end stage renal disease; E87.1 Hypo-osmolality and hyponatremia; T83.83XA Hemorrhage due to genitourinary prosthetic devices, implants and grafts, initial encounter; T85.691A Other mechanical complication of intraperitoneal dialysis catheter, initial encounter; K21.9 Gastro-esophageal reflux disease without esophagitis; E78.5 Hyperlipidemia, unspecified; K44.9 Diaphragmatic hernia without obstruction or gangrene; H26.9 Unspecified cataract; D63.1 Anemia in chronic kidney disease; R33.8 Other retention of urine; R31.9 Hematuria, unspecified; N40.1 Benign prostatic hyperplasia with lower urinary tract symptoms; E87.6 Hypokalemia; Z92.21 Personal history of antineoplastic chemotherapy; Z99.2 Dependence on renal dialysis; Z87.442 Personal history of urinary calculi; Z79.899 Other long term (current) drug therapy; Y81.2 Prosthetic and other implants, materials and accessory general- and plastic-surgery devices associated with adverse incidents
CPT/HCPCS: 36415; 74000; 80048; 80053; 82024; 82272; 82533; 82550; 82553; 82728; 83540; 83550; 83735; 84100; 84484; 85025; 85027; 85610; 85730; 86704; 86706; 86850; 86900; 86901; 86920; 87040; 87340; 90935; 93005; 93306; 93880; 94760; 96361; 96374; 99285

== ENCOUNTER → 2018-01-24 | Outpatient (CLI) | payer MEDICARE ==
--- NOTE | 2018-01-24 10:56 | US ---
EXAMINATION TYPE: US venous doppler duplex LE DATE OF EXAM: 01/24/2018 10:24 AM COMPARISON: NONE CLINICAL HISTORY: M79.662,M79.661,R22.41,R22.42 PAIN AND SWELLING LE. Bilat leg swelling- right more than left per patient. No pain. No redness. No blood thinners. No hx of DVT in legs. SIDE PERFORMED: Bilateral TECHNIQUE: The lower extremity deep venous system is examined utilizing real time linear array sonog jewell with graded compression, doppler sonography and color-flow sonography. VESSELS IMAGED: External Iliac Vein (EIV) Common Femoral Vein Deep Femoral Vein Greater Saphenous Vein * Femoral Vein Popliteal Vein Small Saphenous Vein * Proximal Calf Veins (* superficial vessels) Right Leg: Negative for DVT Left Leg: Negative for DVT IMPRESSION: 1. Bilateral lower extremity ultrasound negative for deep venous thrombosis.
== END | disposition home or self-care (01) ==
LOC: RADUSWWP 09:48
PROVIDERS: ATTEND Internal Medicine Hematology & Oncology
DX: M79.661 Pain in right lower leg (principal); M79.662 Pain in left lower leg
CPT/HCPCS: 93970

== ENCOUNTER 2018-03-30 15:35 | Emergency (ER) | payer MEDICARE ==
[2018-03-30] MEDS ORDERED: IPRATROPIUM-ALBUTEROL 3 ML NEB INHALATION STA ×2 (15:59→18:17)
[2018-03-30] MEDS ORDERED: SODIUM CHLORIDE 0.9% 1,000 ML IV STA (15:59)
[2018-03-30] MEDS ORDERED: SODIUM CHLORIDE 0.9% 500 ML 500 ML IV STA (15:59)
--- NOTE | 2018-03-30 16:47 | XR ---
EXAMINATION TYPE: XR chest 2V DATE OF EXAM: 03/30/2018 COMPARISON: 04/22/2017 INDICATION: Cough congestion short of breath TECHNIQUE: Frontal and lateral views of the chest are obtained. FINDINGS: The heart size is normal. The pulmonary vasculature is slightly prominent. There is a mild infiltrate silhouetting left heart border compatible with a small infiltrate within t he lingula.. IMPRESSION: 1. Correlate for atelectasis or mild pulmonary edema within the lingula. Pneumonia could be considere d within the differential. Follow-up can be performed as clinically indicated
[2018-03-30 17:10] LABS: Basophils % (A) 1 %; Eosinophils # (A) 0.1 k/uL (0-0.7); Eosinophils % (A) 9 %; HCT 41.4 % (39.0-53.0); HGB 14.3 gm/dL (13.0-17.5); Lymphocytes # (A) 0.3 k/uL (1.0-4.8); Lymphocytes % (A) 22 %; MCH 37.7 pg (25.0-35.0); MCHC 34.6 g/dL (31.0-37.0); MCV 108.8 fL (80.0-100.0); Macrocytosis Marked; Mean Platelet Volume 9.4; Monocytes # (A) 0.1 k/uL (0-1.0); Monocytes % (A) 7 %; Neutrophils # (A) 0.9 k/uL (1.3-7.7); Neutrophils % (A) 58 %; RDW 15.8 % (11.5-15.5); WBC 1.5 k/uL (3.8-10.6)
--- NOTE | 2018-03-30 17:13 | ED ---
SOB HPI - General Chief Complaint: Shortness of Breath Stated Complaint: Cough Time Seen by Provider: 03/30/18 15:55 Source: patient, RN notes reviewed, old records reviewed Mode of arrival: ambulatory Limitations: no limitations - History of Present Illness Initial Comments: This is a 72-year-old male to the ER for eversion of cough and shortness of breath. Increased congestion. No fevers per family. Patient is patient with multiple myeloma undergoing chemotherapy. Patient is had a few days of similar complaints on his family doctor yesterday was placed on antibiotics and has continued symptoms today. He again denies fevers denies chest pain denies diarrhea or nausea vomiting. is concerned for patient's breathing not getting better although he is not getting worse treatment yesterday MD Complaint: shortness of breath, cough -: days(s) Severity: mild Consistency: constant Improves With: bronchodilators Worsens With: exertion Known History Of: COPD Context: recent URI Associated Symptoms: cough Treatments Prior to Arrival: bronchodilator - Related Data Home Medications Medication Instructions Recorded Confirmed Alfuzosin HCl [Alfuzosin HCl ER] 10 mg PO DAILY 08/18/16 03/30/18 Allopurinol [Zyloprim] 100 mg PO QAM 08/18/16 03/30/18 Omeprazole [PriLOSEC] 20 mg PO QAM 08/18/16 03/30/18 Simvastatin [Zocor] 20 mg PO HS 08/18/16 03/30/18 Sulfamethox-Tmp 400-80Mg [Bactrim 1 tab PO MOWEFR 08/18/16 03/30/18 SS 400-80 mg] valACYclovir [Valtrex] 500 mg PO QAM 08/18/16 03/30/18 Docusate [Colace] 200 mg PO HS 09/24/16 03/30/18 Cefuroxime Axetil [Ceftin] 500 mg PO BID 03/30/18 03/30/18 Ergocalciferol (Vitamin D2) 50,000 unit PO Q7D 03/30/18 03/30/18 [Vitamin D2] Finasteride [Proscar] 5 mg PO DAILY 03/30/18 03/30/18 Furosemide [Lasix] 60 mg PO BID 03/30/18 03/30/18 Lactulose 20 gm PO DAILY PRN 03/30/18 03/30/18 Lenalidomide [Revlimid] 2.5 mg PO DAILY 03/30/18 03/30/18 Magnesium 200 mg PO BID 03/30/18 03/30/18 Metoprolol Tartrate [Lopressor] 25 mg PO BID 03/30/18 03/30/18 Potassium Chloride [K-Tab ER] 10 meq PO DAILY 03/30/18 03/30/18 Pregabalin [Lyrica] 75 mg PO BID 03/30/18 03/30/18 Pro-Renal + Vit D (Unknown) 1 tab PO DAILY 03/30/18 03/30/18 Previous Rx's Medication Instructions Recorded Midodrine [ProAmatine] 10 mg PO AC-TID #90 tab 10/04/16 Levofloxacin [Levaquin] 750 mg PO DAILY #7 tab 03/30/18 Allergies Allergy/AdvReac Type Severity Reaction Status Date / Time ondansetron AdvReac Constipatio Verified 03/30/18 17:18 n Review of Systems ROS Statement: Those systems with pertinent positive or pertinent negative responses have been documented in the HPI. ROS Other: All systems not noted in ROS Statement are negative. Past Medical History Past Medical History: Cancer, Dialysis, GERD/Reflux, Hyperlipidemia, Hypertension, Prostate Disorder, Renal Disease Additional Past Medical History / Comment(s): multiple myeloma ,enlarged prostate kidney stones ,diverticulosis, hiatal hernia, on hemodialysis now-, , , ORTHOSTATIC HYPOTENSION History of Any Multi-Drug Resistant Organisms: None Reported Additional Past Surgical History / Comment(s): lithotripsy/laser , fatty tumor removed, colonoscopy,PERMA cath rt upper chest, hemodialysis cath insertion 08/22, beginning of cataracts Past Anesthesia/Blood Transfusion Reactions: No Reported Reaction Past Psychological History: No Psychological Hx Reported Smoking Status: Never smoker Past Alcohol Use History: Occasional Past Drug Use History: None Reported - Past Family History Sister(s) Family Medical History: Cancer Father Family Medical History: Cancer, Deep Vein Thrombosis (DVT) General Exam Limitations: no limitations General appearance: alert, in no apparent distress Head exam: Present: atraumatic, normocephalic, normal inspection Eye exam: Present: normal appearance, PERRL, EOMI. Absent: scleral icterus, conjunctival injection, periorbital swelling ENT exam: Present: normal exam, mucous membranes moist Neck exam: Present: normal inspection. Absent: tenderness, meningismus, lymphadenopathy Respiratory exam: Present: wheezes, accessory muscle use, decreased breath sounds, prolonged expiratory. Absent: respiratory distress, rales, rhonchi, stridor Cardiovascular Exam: Present: regular rate, normal rhythm, normal heart sounds. Absent: systolic murmur, diastolic murmur, rubs, gallop, clicks GI/Abdominal exam: Present: soft, normal bowel sounds. Absent: distended, tenderness, guarding, rebound, rigid Extremities exam: Present: normal inspection, full ROM, normal capillary refill. Absent: tenderness, pedal edema, joint swelling, calf tenderness Back exam: Present: normal inspection Neurological exam: Present: alert, oriented X3, CN II-XII intact Psychiatric exam: Present: normal affect, normal mood Skin exam: Present: warm, dry, intact, normal color. Absent: rash Course Vital Signs 03/30/18 03/30/18 03/30/18 15:50 16:48 16:57 Temperature 97.7 F Pulse Rate 76 80 76 Respiratory 20 Rate Blood Pressure 95/57 O2 Sat by Pulse 95 Oximetry 03/30/18 03/30/18 03/30/18 17:03 18:46 18:49 Temperature 98.0 F 98.1 F Pulse Rate 94 86 Respiratory 16 18 Rate Blood Pressure 118/60 117/67 O2 Sat by Pulse 93 L 90 L 96 Oximetry 03/30/18 03/30/18 03/30/18 18:53 19:10 20:19 Temperature 98.2 F Pulse Rate 80 83 102 H Respiratory 18 Rate Blood Pressure 133/66 O2 Sat by Pulse 95 Oximetry - Reevaluation(s) Reevaluation #1: 03/30/18 18:26 Medical record is reviewed, patient has prior lab values with patient Reevaluation #2: 03/30/18 18:26 Patient states he has at home. He'll dialysis, patient wants to be discharged home to do own dialysis Reevaluation #3: 03/30/18 18:26 Spoke with patient regarding findings, patient will be given IV antibiotics and discharged home, patient does not want to stay in the hospital despite encouragement to do so Medical Decision Making - Medical Decision Making 72 male the ER for evaluation of cough and congestion started outpatient emetics initially we'll continue outpatient for pneumonia. Encouraged to return to ER, informed of abnormal lab results, patient states his liver isn't been trending low when he would not like to stay in hospital at this time. Patient is in no acute distress and can be discharged home - Lab Data Result diagrams: 03/30/18 16:40 03/30/18 16:40 Lab Results 03/30/18 03/30/18 03/30/18 Range/Units 16:40 16:40 16:40 WBC 1.5 L (3.8-10.6) k/uL RBC 3.80 L (4.30-5.90) m/uL Hgb 14.3 (13.0-17.5) gm/dL Hct 41.4 (39.0-53.0) % MCV 108.8 H (80.0-100.0) fL MCH 37.7 H (25.0-35.0) pg MCHC 34.6 (31.0-37.0) g/dL RDW 15.8 H (11.5-15.5) % Plt Count 12 L* (150-450) k/uL Neutrophils % 58 % Lymphocytes % 22 % Monocytes % 7 % Eosinophils % 9 % Basophils % 1 % Neutrophils # 0.9 L (1.3-7.7) k/uL Lymphocytes # 0.3 L (1.0-4.8) k/uL Monocytes # 0.1 (0-1.0) k/uL Eosinophils # 0.1 (0-0.7) k/uL Basophils # 0.0 (0-0.2) k/uL Macrocytosis Marked PT (9.0-12.0) sec INR (<1.2) APTT (22.0-30.0) sec Sodium 133 L (137-145) mmol/L Potassium 4.0 (3.5-5.1) mmol/L Chloride 93 L (98-107) mmol/L Carbon Dioxide 21 L (22-30) mmol/L Anion Gap 19 mmol/L BUN 72 H (9-20) mg/dL Creatinine 9.77 H* (0.66-1.25) mg/dL Est GFR (CKD-EPI)AfAm 6 (>60 ml/min/1.73 sqM) Est GFR (CKD-EPI)NonAf 5 (>60 ml/min/1.73 sqM) Glucose 85 (74-99) mg/dL Calcium 6.1 L* (8.4-10.2) mg/dL Magnesium 1.3 L (1.6-2.3) mg/dL Total Bilirubin 1.0 (0.2-1.3) mg/dL AST 70 H (17-59) U/L ALT 46 (21-72) U/L Alkaline Phosphatase 70 (38-126) U/L Total Creatine Kinase 1082 H* (55-170) U/L CK-MB (CK-2) 5.5 H (0.0-2.4) ng/mL CK-MB (CK-2) Rel Index 0.5 Troponin I 0.054 H* (0.000-0.034) ng/mL Total Protein 5.7 L (6.3-8.2) g/dL Albumin 3.4 L (3.5-5.0) g/dL 03/30/18 Range/Units 16:40 WBC (3.8-10.6) k/uL RBC (4.30-5.90) m/uL Hgb (13.0-17.5) gm/dL Hct (39.0-53.0) % MCV (80.0-100.0) fL MCH (25.0-35.0) pg MCHC (31.0-37.0) g/dL RDW (11.5-15.5) % Plt Count (150-450) k/uL Neutrophils % % Lymphocytes % % Monocytes % % Eosinophils % % Basophils % % Neutrophils # (1.3-7.7) k/uL Lymphocytes # (1.0-4.8) k/uL Monocytes # (0-1.0) k/uL Eosinophils # (0-0.7) k/uL Basophils # (0-0.2) k/uL Macrocytosis PT 11.1 (9.0-12.0) sec INR 1.2 H (<1.2) APTT 21.9 L (22.0-30.0) sec Sodium (137-145) mmol/L Potassium (3.5-5.1) mmol/L Chloride (98-107) mmol/L Carbon Dioxide (22-30) mmol/L Anion Gap mmol/L BUN (9-20) mg/dL Creatinine (0.66-1.25) mg/dL Est GFR (CKD-EPI)AfAm (>60 ml/min/1.73 sqM) Est GFR (CKD-EPI)NonAf (>60 ml/min/1.73 sqM) Glucose (74-99) mg/dL Calcium (8.4-10.2) mg/dL Magnesium (1.6-2.3) mg/dL Total Bilirubin (0.2-1.3) mg/dL AST (17-59) U/L ALT (21-72) U/L Alkaline Phosphatase (38-126) U/L Total Creatine Kinase (55-170) U/L CK-MB (CK-2) (0.0-2.4) ng/mL CK-MB (CK-2) Rel Index Troponin I (0.000-0.034) ng/mL Total Protein (6.3-8.2) g/dL Albumin (3.5-5.0) g/dL - EKG Data -: EKG Interpreted by Me (EKG shows sinus rhythm rate of 90, MT 188, QRS 70, QTc 499) - Radiology Data Radiology results: report reviewed (Chest x-ray positive for pneumonia), image reviewed Disposition Clinical Impression: Multiple myeloma, End stage chronic kidney disease, Weakness, Community acquired pneumonia Disposition: HOME SELF-CARE Condition: Fair Instructions: Bronchiolitis (ED), Bacterial Pneumonia (ED) Prescriptions: Levofloxacin [Levaquin] 750 mg PO DAILY #7 tab Is patient prescribed a controlled substance at d/c from ED?: No Referrals: Fred Lawrence MD [Primary Care Provider] - 1-2 days
[2018-03-30 17:36] LABS: INR 1.2 (<1.2); Partial Thromboplastin Time 21.9 sec (22.0-30.0); Prothrombin Time 11.1 sec (9.0-12.0)
[2018-03-30 17:39] LABS: Platelet Count 12 k/uL (150-450)
[2018-03-30 17:43] LABS: Creatine Kinase MB 5.5 ng/mL (0.0-2.4)
[2018-03-30 17:46] LABS: Troponin I 0.054 ng/mL (0.000-0.034)
[2018-03-30 17:55] LABS: Albumin 3.4 g/dL (3.5-5.0); Magnesium 1.3 mg/dL (1.6-2.3); Total Protein 5.7 g/dL (6.3-8.2)
[2018-03-30 17:58] LABS: Calcium 6.1 mg/dL (8.4-10.2)
[2018-03-30] MEDS ORDERED: LEVOFLOXACIN 750MG-D5W PMX 750 MG in DEXTROSE/WATER 1 150ML.BAG IVPB STA (18:17)
[2018-03-30 18:48] VITALS: RESP 18
[2018-03-30 20:22] VITALS: BP 133/66; PULSE 102; TEMP 98.2
== END 2018-03-30 20:34 | disposition home or self-care (01) ==
LOC: EC 15:35
DX: C90.00 Multiple myeloma not having achieved remission (principal); I12.0 Hypertensive chronic kidney disease with stage 5 chronic kidney disease or end stage renal disease; N18.6 End stage renal disease; Z99.2 Dependence on renal dialysis; J18.9 Pneumonia, unspecified organism; K21.9 Gastro-esophageal reflux disease without esophagitis; E78.5 Hyperlipidemia, unspecified; N42.9 Disorder of prostate, unspecified; Z87.442 Personal history of urinary calculi; Z79.899 Other long term (current) drug therapy; Z88.8 Allergy status to other drugs, medicaments and biological substances
CPT/HCPCS: 99285; 96365; 96361 ×2; 36415; 94640 ×2; 93005; 80053; 82550; 82553; 83735; 84484; 85025; 85610; 85730; 87040; 71046; J1956

== ENCOUNTER 2023-05-21 11:36 | Inpatient (IN) | payer MEDICARE ==
[2023-05-21 12:29] LABS: Basophils % (A) 0 %; Eosinophils # (A) 0.1 k/uL (0-0.7); Eosinophils % (A) 2 %; HCT 25.1 % (39.0-53.0); Lymphocytes # (A) 0.5 k/uL (1.0-4.8); Lymphocytes % (A) 9 %; MCH 40.6 pg (25.0-35.0); MCHC 35.9 g/dL (31.0-37.0); MCV 113.2 fL (80.0-100.0); Macrocytosis Marked; Mean Platelet Volume 9.7; Monocytes # (A) 0.6 k/uL (0-1.0); Monocytes % (A) 10 %; Neutrophils # (A) 4.1 k/uL (1.3-7.7); Neutrophils % (A) 75 %; Platelet Count 123 k/uL (150-450); RBC 2.21 m/uL (4.30-5.90); WBC 5.5 k/uL (3.8-10.6)
[2023-05-21 12:38] LABS: Partial Thromboplastin Time 28.1 sec (22.0-30.0); Prothrombin Time 11.3 sec (10.0-12.5)
[2023-05-21] MEDS ORDERED: NALOXONE 0.4 MG/ML 1 ML VIAL IV PRN (12:44)
[2023-05-21] MEDS ORDERED: ONDANSETRON 4 MG/2 ML VIAL IVP PRN (12:44)
[2023-05-21] MEDS: SODIUM CHLORIDE 0.9% 1,000 ML IV SCH (12:52)
--- NOTE | 2023-05-21 12:55 | ED ---
General Adult HPI - General Chief complaint: Recheck/Abnormal Lab/Rx Stated complaint: Abn labs Time Seen by Provider: 05/21/23 11:48 Source: patient Mode of arrival: ambulatory Limitations: no limitations - History of Present Illness Initial comments: Dictation was produced using [employer] dictation software. please excuse any grammatical, word or spelling errors. Chief Complaint: 77-year-old male with malfunctioning PD catheter History of Present Illness: Be 7-year-old male he is past medical history of end-stage renal disease. He gets peritoneal dialysis. For the last 3 or 4 days his PD catheter has not been working. He contacted hemodialysis center and was instructed to come to the ER. Patient has history of PD catheter that required revision in the past. Patient otherwise does not have any symptoms. Denies any abdominal pain. No fever or constitutional symptoms. The ROS documented in this emergency department record has been reviewed and confirmed by me. Those systems with pertinent positive or negative responses have been documented in the HPI. All other systems are other negative and/or noncontributory. - Related Data Home Medications Medication Instructions Recorded Confirmed Alfuzosin HCl [Alfuzosin HCl ER] 10 mg PO DAILY 08/18/16 03/30/18 Omeprazole [PriLOSEC] 20 mg PO QAM 08/18/16 03/30/18 Simvastatin [Zocor] 20 mg PO HS 08/18/16 03/30/18 Sulfamethox-Tmp 400-80Mg [Bactrim 1 tab PO MOWEFR 08/18/16 03/30/18 SS 400-80 mg] allopurinoL [Zyloprim] 100 mg PO QAM 08/18/16 03/30/18 valACYclovir HCL [Valtrex] 500 mg PO QAM 08/18/16 03/30/18 Docusate [Colace] 200 mg PO HS 09/24/16 03/30/18 Ergocalciferol (Vitamin D2) 50,000 unit PO Q7D 03/30/18 03/30/18 [Vitamin D2] Finasteride [Proscar] 5 mg PO DAILY 03/30/18 03/30/18 Furosemide [Lasix] 60 mg PO BID 03/30/18 03/30/18 Lactulose 20 gm PO DAILY PRN 03/30/18 03/30/18 Lenalidomide [Revlimid] 2.5 mg PO DAILY 03/30/18 03/30/18 Magnesium 200 mg PO BID 03/30/18 03/30/18 Metoprolol Tartrate [Lopressor] 25 mg PO BID 03/30/18 03/30/18 Potassium Chloride [K-Tab ER] 10 meq PO DAILY 03/30/18 03/30/18 Pregabalin [Lyrica] 75 mg PO BID 03/30/18 03/30/18 Pro-Renal + Vit D (Unknown) 1 tab PO DAILY 03/30/18 03/30/18 cefUROXime axetiL [Ceftin] 500 mg PO BID 03/30/18 03/30/18 Previous Rx's Medication Instructions Recorded Midodrine [ProAmatine] 10 mg PO AC-TID #90 tab 10/04/16 levoFLOXacin [Levaquin] 750 mg PO DAILY #7 tab 03/30/18 Allergies Allergy/AdvReac Type Severity Reaction Status Date / Time ondansetron AdvReac Constipatio Verified 05/21/23 11:40 n Review of Systems ROS Statement: Those systems with pertinent positive or pertinent negative responses have been documented in the HPI. ROS Other: All systems not noted in ROS Statement are negative. Past Medical History Past Medical History: Cancer, Dialysis, GERD/Reflux, Hyperlipidemia, Hypertension, Prostate Disorder, Renal Disease Additional Past Medical History / Comment(s): multiple myeloma ,enlarged prostate kidney stones ,diverticulosis, hiatal hernia, on hemodialysis now-TU,T H, SA, ORTHOSTATIC HYPOTENSION History of Any Multi-Drug Resistant Organisms: None Reported Additional Past Surgical History / Comment(s): lithotripsy/laser , fatty tumor removed, colonoscopy,PERMA cath rt upper chest, hemodialysis cath insertion 08/11 06/29, beginning of cataracts Past Anesthesia/Blood Transfusion Reactions: No Reported Reaction Past Psychological History: No Psychological Hx Reported Past Alcohol Use History: Occasional Past Drug Use History: None Reported - Past Family History Sister(s) Family Medical History: Cancer Father Family Medical History: Cancer, Deep Vein Thrombosis (DVT) General Exam - General Exam Comments Initial Comments: General: Well-appearing, nontoxic, no acute distress. Head: Normocephalic, atraumatic Eyes: PERRLA, EOMI ENT: Airway patent Chest: Nonlabored breathing Skin: No visual rash, normal skin tone Neuro: Alert and oriented 3 Musculoskeletal: No gross abnormalities Limitations: no limitations Course Vital Signs 05/21/23 11:41 Temperature 97.4 F L Pulse Rate 95 Respiratory 16 Rate Blood Pressure 121/68 O2 Sat by Pulse 100 Oximetry Medical Decision Making - Medical Decision Making Was pt. sent in by a medical professional or institution (TAWANNA Marie, WATER METER READER, urgent care, hospital, or retirement...) When possible be specific @ -No Did you speak to anyone other than the patient for history (EMS, parent, family, police, friend...)? What history was obtained from this source @ -No Did you review nursing and triage notes (agree or disagree)? Why? @ -I reviewed and agree with nursing and triage notes Were old charts reviewed (outside hosp., previous admission, EMS record, old EKG, old radiological studies, urgent care reports/EKG's, retirement records)? Report findings @ -No old charts were reviewed Differential Diagnosis (chest pain, altered mental status, abdominal pain women, abdominal pain men, vaginal bleeding, musculoskeletal, weakness, fever, dyspnea, syncope, headache, dizziness, GI bleed, back pain, seizure, CVA, palpatations, mental health)? @ -not applicable EKG interpreted by me (3pts min.). @ -None done X-rays interpreted by me (1pt min.). @ -None done CT interpreted by me (1pt min.). @ -None done U/S interpreted by me (1pt. min.). @ -None done What testing was considered but not performed or refused? (CT, X-rays, U/S, labs)? Why? @ -None What meds were considered but not given or refused? Why? @ -None Did you discuss the management of the patient with other professionals (professionals i.e. TAWANNA Marie, WATER METER READER, lab, RT, psych nurse, secondary social studies teacher, typesetters printer, teacher, commercial loan officer, case briefer)? Give summary @ -Case discussed with Dr. Hawkins request that patient be admitted to the hospital with surgical consultation. She believes that patient will likely need to be converted to hemodialysis temporarily Was smoking cessation discussed for >3mins.? @ -No Was critical care preformed (if so, how long)? @ -No Were there social determinants of health that impacted care today? How? (Homelessness, low income, unemployed, alcoholism, drug addiction, transportation, low edu. Level, literacy, decrease access to med. care, long term, rehab)? @ -No Was there de-escalation of care discussed even if they declined (Discuss DNR or withdrawal of care, Hospice)? DNR status @ -No What co-morbidities impacted this encounter? (DM, HTN, Smoking, COPD, CAD, Cancer, CVA, ARF, Chemo, Hep., AIDS, mental health diagnosis, sleep apnea, m orbid obesity)? @ -None Was patient admitted / discharged? Hospital course, mention meds given and route, prescriptions, significant lab abnormalities, going to OR and other pertinent info. @ -77-year-old male sent to the emergency department by web press roll tender to be admitted for management of nonfunctioning peritoneal dialysis catheter. Vital signs stable. Physical examination is benign. Patient be admitted with consultation to general surgery and nephrology. Patient will likely need temporary hemodialysis until PD catheter is exposed Undiagnosed new problem with uncertain prognosis? @ -No Drug Therapy requiring intensive monitoring for toxicity (Heparin, Nitro, Insulin, Cardizem)? @ -No Were any procedures done? @ -No Diagnosis/symptom? Acute, or Chronic, or Acute on Chronic? Uncomplicated (wit hout systemic symptoms) or Complicated (systemic symptoms)? @ -Malfunctioning PD catheter Side effects of treatment? @ -No Exacerbation, Progression, or Severe Exacerbation? @ -No Poses a threat to life or bodily function? How? (Chest pain, [place], [place], pneumonia, PE, COPD, DKA, ARF, appy, cholecystitis, CVA, Diverticulitis, Homicidal, Suicidal, threat to staff... and all critical care pts) @ -yes - Lab Data Result diagrams: 05/21/23 12:12 05/21/23 12:12 Lab Results 05/21/23 05/21/23 05/21/23 Range/Units 12:12 12:12 12:12 WBC 5.5 (3.8-10.6) k/uL RBC 2.21 L (4.30-5.90) m/uL Hgb 9.0 L (13.0-17.5) gm/dL Hct 25.1 L (39.0-53.0) % MCV 113.2 H (80.0-100.0) fL MCH 40.6 H (25.0-35.0) pg MCHC 35.9 (31.0-37.0) g/dL RDW 16.0 H (11.5-15.5) % Plt Count 123 L (150-450) k/uL MPV 9.7 Macrocytosis Marked A PT 11.3 (10.0-12.5) sec INR 1.0 (<1.2) APTT 28.1 (22.0-30.0) sec Sodium 128 L (137-145) mmol/L Potassium 3.8 (3.5-5.1) mmol/L Chloride 92 L (98-107) mmol/L Carbon Dioxide 22 (22-30) mmol/L Anion Gap 14 mmol/L BUN 67 H (9-20) mg/dL Creatinine 7.80 H* (0.66-1.25) mg/dL Est GFR (CKD-EPI)AfAm 7 (>60 ml/min/1.73 sqM) Est GFR (CKD-EPI)NonAf 6 (>60 ml/min/1.73 sqM) Glucose 109 H (74-99) mg/dL Calcium 6.8 L (8.4-10.2) mg/dL Disposition Clinical Impression: Peritoneal dialysis catheter dysfunction Disposition: ADMITTED IP TO THIS HOSP Condition: Fair Referrals: Fred Lawrence MD [Primary Care Provider] - 1-2 days Decision Time: 13:18
[2023-05-21 12:57] LABS: African American GFR (CKD) 7 (>60 ml/min/1.73 sqM); Anion Gap 14 mmol/L; Blood Urea Nitrogen 67 mg/dL (9-20); Calcium 6.8 mg/dL (8.4-10.2); Carbon Dioxide 22 mmol/L (22-30); Chloride 92 mmol/L (98-107); Glucose 109 mg/dL (74-99); Non-African American GFR(CKD) 6 (>60 ml/min/1.73 sqM); Potassium 3.8 mmol/L (3.5-5.1); Sodium 128 mmol/L (137-145)
[2023-05-21] MEDS ORDERED: DIPHENOX-ATROP 2.5-0.025 MG 1 EACH TAB PO PRN (16:23)
[2023-05-21] MEDS ORDERED: DOCUSATE 100 MG CAP PO PRN (16:23)
[2023-05-21] MEDS ORDERED: [UNRECOGNIZED DRUG - OTHER] INJ SCH (16:30)
[2023-05-21] MEDS: CALCIUM CARBONATE 500 MG CHEWABLE PO SCH ×3 (17:55→23:58)
[2023-05-21] MEDS: FUROSEMIDE 80 MG TAB PO SCH (17:55)
[2023-05-21] MEDS: MIDODRINE 5 MG TAB PO SCH (17:55)
[2023-05-21] MEDS: PREGABALIN 75 MG CAP PO SCH (21:03)
[2023-05-21] MEDS: TAMSULOSIN 0.4 MG CAP.ER.24H PO SCH (21:03)
[2023-05-21] MEDS: POTASSIUM CHLORIDE ER 20 MEQ TAB.ER PO SCH (21:03)
[2023-05-21] MEDS: PANTOPRAZOLE 40 MG TABLET PO SCH (21:03)
[2023-05-21] MEDS: ATORVASTATIN 10 MG TAB PO SCH (21:03)
[2023-05-21] MEDS: FINASTERIDE 5 MG TAB PO SCH (21:03)
[2023-05-22] MEDS: CALCIUM CARBONATE 500 MG CHEWABLE PO SCH ×8 (03:59→23:58)
[2023-05-22] MEDS: FOLIC ACID-VIT B COMPLEX-VIT C 1 CAP PO SCH (08:06)
[2023-05-22] MEDS: FUROSEMIDE 80 MG TAB PO SCH ×2 (08:06→15:51)
[2023-05-22] MEDS: MAGNESIUM OXIDE 400 MG TAB PO SCH (08:06)
[2023-05-22] MEDS: SULFAMETHOX-TMP 800-160MG 1 EACH TAB PO SCH (08:06)
[2023-05-22] MEDS: PREGABALIN 75 MG CAP PO SCH ×2 (08:06→20:03)
[2023-05-22] MEDS: valACYclovir HCL 500 MG TAB PO SCH (08:06)
[2023-05-22] MEDS: POTASSIUM CHLORIDE ER 20 MEQ TAB.ER PO SCH ×2 (08:06→20:02)
[2023-05-22] MEDS: METOPROLOL TARTRATE 50 MG TAB PO SCH (08:07)
[2023-05-22] MEDS: MAGNEBIND PO SCH (08:07)
[2023-05-22] MEDS: MIDODRINE 5 MG TAB PO SCH ×3 (08:07→17:22)
[2023-05-22] MEDS ORDERED: SODIUM BICARBONATE TAB 650 MG TAB PO SCH (09:00)
--- NOTE | 2023-05-22 10:50 | P.GSCN ---
History of Present Illness Consult date: 05/22/23 History of present illness: CHIEF COMPLAINT: Malfunctioning peritoneal dialysis catheter HISTORY OF PRESENT ILLNESS: This is a 77-year-old male with history of end-stage renal disease. His PD catheter has been malfunctioning since Saturday evening. Patient denies any abdominal pain. Denies any nausea or vomiting. Denies any fever chills or sweats. Patient's at bedside does report that patient has been on antibiotics for peritonitis. He had his PD catheter placed in 2017. He did require revision of the catheter. Surgical service has been consulted for m alfunctioning PD catheter. Patient also has a history of multiple myeloma and is on chemotherapy. Per ER note, nephrology likely proceed with temporary hemodialysis. PAST MEDICAL HISTORY: See below PAST SURGICAL HISTORY: See below MEDICATIONS: See below ALLERGIES: See below SOCIAL HISTORY: No illicit drug use. REVIEW OF SYSTEMS: CONSTITUTIONAL: Denies fever or chills. HEENT: Denies blurred vision, vision changes, or eye pain. Denies hemoptysis CARDIOVASCULAR: Denies chest pain or pressure. RESPIRATORY: No shortness of breath. GASTROINTESTINAL: See HPI for pertinent findings HEMATOLOGIC: Denies bleeding disorders. GENITOURINARY: Denies any blood in urine or increased urinary frequency. SKIN: Denies pruitis. Denies rash. PHYSICAL EXAM: VITAL SIGNS: Reviewed GENERAL: Well-developed in no acute distress. ABDOMEN: Soft. Mildly distended. Nontender. Peritoneal dialysis catheter on right side of abdomen. Clean dry and intact. NEUROLOGIC: Alert and oriented. Cranial nerves II through XII grossly intact. LABORATORY DATA: WBC 5.5 Hgb 9.0 platelets 123 INR 1.0 Sodium 128 potassium is 3.8 creatinine 7.80 IMAGING: ASSESSMENT: 1. Malfunctioning peritoneal dialysis catheter PLAN: -Abdominal x-ray ordered -Further recommendations forthcoming per surgeon [employer] Director note has been reviewed by physician. Signing provider agrees with the documented findings, assessment, and plan of care. I have personally seen and examined the patient, reviewed the MUSIC JOURNALIST /PAs history, exam and MDM and agree with the assessment and plan as written. Based on total visit time, I have performed more than 50% of the visit. As above: Patient known to our service. Had dialysis catheter placed 6-7 years ago. Currently has recurrent peritonitis and malfunctioning catheter. Patient already ate today. Will discuss with Dr. Jurado if she would be willing to remove this catheter in the next 24-48 hours. Past Medical History Past Medical History: Cancer, Dialysis, GERD/Reflux, Hyperlipidemia, Hypertension, Osteoarthritis (OA), Prostate Disorder, Renal Disease Additional Past Medical History / Comment(s): multiple myeloma, enlarged prostate, kidney stones, diverticulosis, hiatal hernia, hemodialysis august-October 2016, CAPD since October 2016, orthostatic hypotension, neuropathy, leaky mitral valve, weak left ventricle of heart History of Any Multi-Drug Resistant Organisms: None Reported Additional Past Surgical History / Comment(s): lithotripsy/laser, fatty tumor removed from rigt chest, colonoscopy, PERMA cath rt upper chest- removed 2016, hemodialysis cath august-October 27, bilateral cataracts removed, CAPD cath adjustment within two weeks of first insertion in 2016, pt is on oral CHEMO Revlamid Saturday and for the past 6.5 years. Past Anesthesia/Blood Transfusion Reactions: No Reported Reaction Additional Past Anesthesia/Blood Transfusion Reaction / Comm: previous blood transfusion without any reactions Past Psychological History: No Psychological Hx Reported Additional Psychological History / Comment(s): lives with augustine in a 2 story home but pt stays on first level. has 2 steps in which to enter home. uses a walker/cane when up. no pets. 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 Smoking Status: Never smoker Past Alcohol Use History: Occasional Past Drug Use History: None Reported - Past Family History Sister(s) Family Medical History: Cancer Father Family Medical History: Cancer, Deep Vein Thrombosis (DVT) Mother Family Medical History: Dementia Additional Family Medical History / Comment(s): from alzheimer's Medications and Allergies Home Medications Medication Instructions Recorded Confirmed Type Omeprazole [PriLOSEC] 20 mg PO HS 08/18/16 05/21/23 History Simvastatin [Zocor] 20 mg PO HS 08/18/16 05/21/23 History valACYclovir HCL [Valtrex] 500 mg PO QAM 08/18/16 05/21/23 History Docusate [Colace] 100 mg PO DAILY PRN 09/24/16 05/21/23 History Midodrine [ProAmatine] 10 mg PO AC-TID #90 tab 10/04/16 05/21/23 Rx Finasteride [Proscar] 5 mg PO HS 03/30/18 05/21/23 History Lenalidomide [Revlimid] 2.5 mg PO MOTH 03/30/18 05/21/23 History Metoprolol Tartrate [Lopressor] 50 mg PO DAILY 03/30/18 05/21/23 History Pregabalin [Lyrica] 75 mg PO BID 03/30/18 05/21/23 History Pro-Renal + Vit D (Unknown) 1 tab PO DAILY 03/30/18 05/21/23 History Calcium Carbonate [Tums] 1,000 mg PO Q3H 05/21/23 05/21/23 History Diphenox-Atrop 2.5-0.025 mg 1 tab PO 5XD PRN 05/21/23 05/21/23 History [Lomotil] Ergocalciferol (Vitamin D2) 1,250 mcg PO SA 05/21/23 05/21/23 History [Drisdol (50,000 Iu)] Furosemide [Lasix] 80 mg PO BID 05/21/23 05/21/23 History Magnebind 1 cap PO DAILY 05/21/23 05/21/23 History Magnesium Oxide [Mag-Ox] 400 mg PO DAILY 05/21/23 05/21/23 History Micera 50mcg/0.3ml 50 mcg INJ Q14D 05/21/23 05/21/23 History Potassium Chloride ER [K-Dur 20] 20 meq PO BID 05/21/23 05/21/23 History Sodium Bicarbonate Tab 650 mg PO DAILY 05/21/23 05/21/23 History Sulfamethox-Tmp 800-160Mg [Bactrim 1 tab PO MOWEFR 05/21/23 05/21/23 History DS 800-160 mg] Tamsulosin [Flomax] 0.4 mg PO HS 05/21/23 05/21/23 History calcitrioL [Calcitriol] 0.5 mcg PO WE 05/21/23 05/21/23 History Allergies Allergy/AdvReac Type Severity Reaction Status Date / Time ondansetron AdvReac Constipatio Verified 05/21/23 14:06 n Surgical - Exam Vital Signs Temp Pulse Resp BP Pulse Ox 97.4 F L 95 16 121/68 100 05/21/23 11:41 05/21/23 11:41 05/21/23 11:41 05/21/23 11:41 05/21/23 11:41 Results - Labs 05/21/23 12:12 05/22/23 10:40 Abnormal Lab Results - Last 24 Hours (Table) 05/21/23 05/21/23 Range/Units 12:12 12:12 RBC 2.21 L (4.30-5.90) m/uL Hgb 9.0 L (13.0-17.5) gm/dL Hct 25.1 L (39.0-53.0) % MCV 113.2 H (80.0-100.0) fL MCH 40.6 H (25.0-35.0) pg RDW 16.0 H (11.5-15.5) % Plt Count 123 L (150-450) k/uL Lymphocytes # 0.5 L (1.0-4.8) k/uL Macrocytosis Marked A Sodium 128 L (137-145) mmol/L Chloride 92 L (98-107) mmol/L BUN 67 H (9-20) mg/dL Creatinine 7.80 H* (0.66-1.25) mg/dL Glucose 109 H (74-99) mg/dL Calcium 6.8 L (8.4-10.2) mg/dL Diabetes panel 05/21/23 Range/Units 12:12 Sodium 128 L (137-145) mmol/L Potassium 3.8 (3.5-5.1) mmol/L Chloride 92 L (98-107) mmol/L Carbon Dioxide 22 (22-30) mmol/L BUN 67 H (9-20) mg/dL Creatinine 7.80 H* (0.66-1.25) mg/dL Glucose 109 H (74-99) mg/dL Calcium 6.8 L (8.4-10.2) mg/dL Calcium panel 05/21/23 Range/Units 12:12 Calcium 6.8 L (8.4-10.2) mg/dL Pituitary panel 05/21/23 Range/Units 12:12 Sodium 128 L (137-145) mmol/L Potassium 3.8 (3.5-5.1) mmol/L Chloride 92 L (98-107) mmol/L Carbon Dioxide 22 (22-30) mmol/L BUN 67 H (9-20) mg/dL Creatinine 7.80 H* (0.66-1.25) mg/dL Glucose 109 H (74-99) mg/dL Calcium 6.8 L (8.4-10.2) mg/dL Adrenal panel 05/21/23 Range/Units 12:12 Sodium 128 L (137-145) mmol/L Potassium 3.8 (3.5-5.1) mmol/L Chloride 92 L (98-107) mmol/L Carbon Dioxide 22 (22-30) mmol/L BUN 67 H (9-20) mg/dL Creatinine 7.80 H* (0.66-1.25) mg/dL Glucose 109 H (74-99) mg/dL Calcium 6.8 L (8.4-10.2) mg/dL
--- NOTE | 2023-05-22 11:02 | P.HPIM ---
History of Present Illness H&P Date: 05/21/23 Dean Earl, is a 77-year-old who presented to [facility] emergency room with a chief complaint of mal-functioning peritoneal dialysis catheter He was evaluated in the emergency room, nephrology were contacted, patient will need to be admitted for replacement of peritoneal dialysis catheter, and short- term hemodialysis replacement. He was evaluated in the emergency room vital examination on presentation revealed a temperature of 97.4 pulse 95 respirations 16 blood pressure 121/68 pulse ox 100% on room air Laboratory data reveals a white blood count of 5.5 hemoglobin 9.0 platelet count 123 BUN 67 creatinine 7.8 Patient was admitted to medical floor for further evaluation and treatment Past medical history is significant for end-stage renal disease maintained on peritoneal dialysis since 2016, multiple myeloma, GERD, hypertension, hyperlipidemia, osteoarthritis, neuropathy and orthostatic hypotension On review of systems denies any chest pain or shortness of breath. Patient denies nausea vomiting or diarrhea. Patient denies any urinary burning or frequency Review of Systems Please refer to HPI otherwise unremarkable Past Medical History Past Medical History: Cancer, Dialysis, GERD/Reflux, Hyperlipidemia, Hypertension, Prostate Disorder, Renal Disease Additional Past Medical History / Comment(s): multiple myeloma ,enlarged prostate kidney stones ,diverticulosis, hiatal hernia, on hemodialysis now- ,, , ORTHOSTATIC HYPOTENSION History of Any Multi-Drug Resistant Organisms: None Reported Additional Past Surgical History / Comment(s): lithotripsy/laser , fatty tumor removed, colonoscopy,PERMA cath rt upper chest, hemodialysis cath insertion 08/22/16, beginning of cataracts Past Anesthesia/Blood Transfusion Reactions: No Reported Reaction Past Psychological History: No Psychological Hx Reported Past Alcohol Use History: Occasional Past Drug Use History: None Reported - Past Family History Sister(s) Family Medical History: Cancer Father Family Medical History: Cancer, Deep Vein Thrombosis (DVT) Mother Family Medical History: Dementia Additional Family Medical History / Comment(s): from alzheimer's Medications and Allergies Home Medications Medication Instructions Recorded Confirmed Type Omeprazole [PriLOSEC] 20 mg PO HS 08/18/16 05/21/23 History Simvastatin [Zocor] 20 mg PO HS 08/18/16 05/21/23 History valACYclovir HCL [Valtrex] 500 mg PO QA 08/18/16 05/21/23 History Docusate [Colace] 100 mg PO DAILY PRN 09/24/16 05/21/23 History Midodrine [ProAmatine] 10 mg PO AC-TID #90 tab 10/04/16 05/21/23 Rx Finasteride [Proscar] 5 mg PO HS 03/30/18 05/21/23 History Lenalidomide [Revlimid] 2.5 mg PO MOTH 03/30/18 05/21/23 History Metoprolol Tartrate [Lopressor] 50 mg PO DAILY 03/30/18 05/21/23 History Pregabalin [Lyrica] 75 mg PO BID 03/30/18 05/21/23 History Pro-Renal + Vit D (Unknown) 1 tab PO DAILY 03/30/18 05/21/23 History Calcium Carbonate [Tums] 1,000 mg PO Q3H 05/21/23 05/21/23 History Diphenox-Atrop 2.5-0.025 mg 1 tab PO 5XD PRN 05/21/23 05/21/23 History [Lomotil] Ergocalciferol (Vitamin D2) 1,250 mcg PO SA 05/21/23 05/21/23 History [Drisdol (50,000 Iu)] Furosemide [Lasix] 80 mg PO BID 05/21/23 05/21/23 History Magnebind 1 cap PO DAILY 05/21/23 05/21/23 History Magnesium Oxide [Mag-Ox] 400 mg PO DAILY 05/21/23 05/21/23 History Micera 50mcg/0.3ml 50 mcg INJ Q14D 05/21/23 05/21/23 History Potassium Chloride ER [K-Dur 20] 20 meq PO BID 05/21/23 05/21/23 History Sodium Bicarbonate Tab 650 mg PO DAILY 05/21/23 05/21/23 History Sulfamethox-Tmp 800-160Mg [Bactrim 1 tab PO MOWEFR 05/21/23 05/21/23 History DS 800-160 mg] Tamsulosin [Flomax] 0.4 mg PO HS 05/21/23 05/21/23 History calcitrioL [Calcitriol] 0.5 mcg PO WE 05/21/23 05/21/23 History Allergies Allergy/AdvReac Type Severity Reaction Status Date / Time ondansetron AdvReac Constipatio Verified 05/21/23 14:06 n Physical Exam Vitals: Vital Signs Temp Pulse Resp BP Pulse Ox 05/21/23 15:25 97.5 F L 89 18 113/56 97 05/21/23 11:41 97.4 F L 95 16 121/68 100 Intake and Output 05/21/23 05/21/23 05/21/23 06:59 14:59 22:59 Other: Weight 95.254 kg In general patient is alert and oriented x 3 in no distress HEENT head normocephalic and atraumatic Neck is supple no JVD no goiter no lymphadenopathy no carotid bruit Chest examination is clear to auscultation no crackles no wheezing Cardiac exam reveals regular heart sounds S1 and S2 no gallops no murmurs Abdomen is soft nontender no organomegaly with normal bowel sounds Extremity exam reveals no edema no cyanosis or clubbing Neurological examination reveals no gross focal deficits Results CBC & Chem 7: 05/21/23 12:12 05/21/23 12:12 Labs: Abnormal Lab Results - Last 24 Hours (Table) 05/21/23 05/21/23 Range/Units 12:12 12:12 RBC 2.21 L (4.30-5.90) m/uL Hgb 9.0 L (13.0-17.5) gm/dL Hct 25.1 L (39.0-53.0) % MCV 113.2 H (80.0-100.0) fL MCH 40.6 H (25.0-35.0) pg RDW 16.0 H (11.5-15.5) % Plt Count 123 L (150-450) k/uL Lymphocytes # 0.5 L (1.0-4.8) k/uL Macrocytosis Marked A Sodium 128 L (137-145) mmol/L Chloride 92 L (98-107) mmol/L BUN 67 H (9-20) mg/dL Creatinine 7.80 H* (0.66-1.25) mg/dL Glucose 109 H (74-99) mg/dL Calcium 6.8 L (8.4-10.2) mg/dL Assessment and Plan Plan: Poorly functioning peritoneal dialysis catheter Underlying history of end-stage renal disease Underlying history of hypertension Underlying history of hyperlipidemia Underlying history of gout Underlying history of multiple myeloma Underlying history of anemia At this time patient is admitted to medical floor Nephrology consultation and general surgery consultation requested Patient may require hemodialysis until his replacement peritoneal dialysis catheter is functioning Home medications reviewed and reordered Will follow closely Time with Patient: Greater than 30 (Greater than 60% of the total time spent in counseling and coordination of care)
--- NOTE | 2023-05-22 11:03 | P.PN ---
Subjective Progress Note Date: 05/22/23 Dean Earl, is a 77-year-old who presented to [facility] emergency room with a chief complaint of mal-functioning peritoneal dialysis catheter He was evaluated in the emergency room, nephrology were contacted, patient will need to be admitted for replacement of peritoneal dialysis catheter, and short- term hemodialysis replacement. He was evaluated in the emergency room vital examination on presentation revealed a temperature of 97.4 pulse 95 respirations 16 blood pressure 121/68 pulse ox 100% on room air Laboratory data reveals a white blood count of 5.5 hemoglobin 9.0 platelet count 123 BUN 67 creatinine 7.8 Patient was admitted to medical floor for further evaluation and treatment Past medical history is significant for end-stage renal disease maintained on peritoneal dialysis since 2017, multiple myeloma, GERD, hypertension, hyperlipidemia, osteoarthritis, neuropathy and orthostatic hypotension On review of systems denies any chest pain or shortness of breath. Patient denies nausea vomiting or diarrhea. Patient denies any urinary burning or frequency On 05/22/2023 patient is alert and oriented 3. Awaiting further recommendations from nephrology for possible initiation of hemodialysis. Surgical services also consulted to evaluate peritoneal dialysis site. Current vital signs temp 97.7, heart rate 64, respiratory rate 17, blood pressure 05/17/1957 pulse ox 90% on room air Objective - Vital Signs Vital signs: Vital Signs Temp 97.7 F 05/22/23 07:12 Pulse 64 05/22/23 07:12 Resp 17 05/22/23 07:12 BP 105/69 05/22/23 07:12 Pulse Ox 98 05/22/23 07:12 FiO2 Intake & Output 05/21/23 05/22/23 05/22/23 18:59 06:59 18:59 Intake Total 118 480 Balance 118 480 Weight 95.254 kg 95.8 kg Intake: Oral 118 480 Other: Voiding Method Toilet Toilet # Voids 1 1 - Exam In general patient is alert and oriented x 3 in no distress HEENT head normocephalic and atraumatic Neck is supple no JVD no goiter no lymphadenopathy no carotid bruit Chest examination is clear to auscultation no crackles no wheezing Cardiac exam reveals regular heart sounds S1 and S2 no gallops no murmurs Abdomen is soft nontender no organomegaly with normal bowel sounds Extremity exam reveals no edema no cyanosis or clubbing Neurological examination reveals no gross focal deficits - Labs CBC & Chem 7: 05/21/23 12:12 05/21/23 12:12 Labs: Abnormal Lab Results - Last 24 Hours (Table) 05/21/23 05/21/23 Range/Units 12:12 12:12 RBC 2.21 L (4.30-5.90) m/uL Hgb 9.0 L (13.0-17.5) gm/dL Hct 25.1 L (39.0-53.0) % MCV 113.2 H (80.0-100.0) fL MCH 40.6 H (25.0-35.0) pg RDW 16.0 H (11.5-15.5) % Plt Count 123 L (150-450) k/uL Lymphocytes # 0.5 L (1.0-4.8) k/uL Macrocytosis Marked A Sodium 128 L (137-145) mmol/L Chloride 92 L (98-107) mmol/L BUN 67 H (9-20) mg/dL Creatinine 7.80 H* (0.66-1.25) mg/dL Glucose 109 H (74-99) mg/dL Calcium 6.8 L (8.4-10.2) mg/dL Assessment and Plan Plan: Poorly functioning peritoneal dialysis catheter Underlying history of end-stage renal disease Underlying history of hypertension Underlying history of hyperlipidemia Underlying history of gout Underlying history of multiple myeloma Underlying history of anemia At this time patient is admitted to medical floor Nephrology consultation and general surgery consultation requested Patient may require hemodialysis until his replacement peritoneal dialysis catheter is functioning Home medications reviewed and reordered Will follow closely
--- NOTE | 2023-05-22 11:09 | XR ---
EXAMINATION TYPE: XR abdomen 1V DATE OF EXAM: 05/22/2023 Comparison: 09/28/2016 Clinical History: 77-year-old male malfunctioning PD catheter. Placed 7 years ago. Findings: Vascular calcifications suggesting underlying diabetes and her chronic kidney disease. There is a per itoneal dialysis catheter on the right but with looped distal aspect in the left paramedian mid pelvi s. Pelvic phlebolith. Gassy colon. No dilated small bowel loops. Calcifications project in the right upper quadrant, possible gallstones or renal calculi 1.1 cm. Impression: 1. Distal aspect of the patient's peritoneal dialysis catheter is located in the left paramedian mid pelvis. Back in 2017, it was located in the right upper quadrant. 2. Nonobstructive bowel gas pattern. Scattered gas in colon. 3. Calcifications right upper quadrant measuring up to 1.1 cm could represent gallstones or renal alyssa culi.
[2023-05-22 11:23] LABS: ALT 13 U/L (4-49); AST 23 U/L (17-59); African American GFR (CKD) 6 (>60 ml/min/1.73 sqM); Albumin 2.4 g/dL (3.5-5.0); Albumin/Globulin Ratio 1.3; Alkaline Phosphatase 55 U/L (38-126); Anion Gap 14 mmol/L; Blood Urea Nitrogen 71 mg/dL (9-20); Carbon Dioxide 22 mmol/L (22-30); Chloride 92 mmol/L (98-107); Globulin 1.9 g/dL; Glucose 105 mg/dL (74-99); Non-African American GFR(CKD) 5 (>60 ml/min/1.73 sqM); Potassium 3.7 mmol/L (3.5-5.1); Sodium 128 mmol/L (137-145); Total Bilirubin 0.4 mg/dL (0.2-1.3); Total Protein 4.3 g/dL (6.3-8.2)
[2023-05-22 11:35] LABS: Calcium 6.2 mg/dL (8.4-10.2)
--- NOTE | 2023-05-22 12:49 | P.NPCON ---
History of Present Illness - Reason for Consult end stage renal disease - History of Present Illness Patient is a 77-year-old male with end-stage renal disease on peritoneal dialysis was admitted to the hospital with malfunctioning PD catheter. Patient has had 2 episodes of peritonitis with fluid culture growing staph epidermidis. Most recently the dialysis catheter was not functioning and the dialysis nurse was not able to aspirate or fill. Patient is admitted for removal of PD catheter and switching to temporary hemodialysis. No history of fever chills. Scheduled to receive vancomycin intraperitoneally today but we will give it IV as PD catheter is is nonfunctional. No complaints of abdominal pain., Nausea or vomiting Last PD exchange was 2 days ago Review of Systems As per HPI Past Medical History Past Medical History: Cancer, Dialysis, GERD/Reflux, Hyperlipidemia, Hypertension, Osteoarthritis (OA), Prostate Disorder, Renal Disease Additional Past Medical History / Comment(s): multiple myeloma, enlarged prostate, kidney stones, diverticulosis, hiatal hernia, hemodialysis august-October 2016, CAPD since October 2016, orthostatic hypotension, neuropathy, leaky mitral valve, weak left ventricle of heart History of Any Multi-Drug Resistant Organisms: None Reported Additional Past Surgical History / Comment(s): lithotripsy/laser, fatty tumor removed from rigt chest, colonoscopy, PERMA cath rt upper chest- removed 2016, hemodialysis cath august-October 27, bilateral cataracts removed, CAPD cath adjustment within two weeks of first insertion in 2016, pt is on oral CHEMO Revlamid Saturday and for the past 6.5 years. Past Anesthesia/Blood Transfusion Reactions: No Reported Reaction Additional Past Anesthesia/Blood Transfusion Reaction / Comment(s): previous blood transfusion without any reactions Past Psychological History: No Psychological Hx Reported Additional Psychological History / Comment(s): lives with augustine in a 2 story home but pt stays on first level. has 2 steps in which to enter home. uses a walker/cane when up. no pets. 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 Smoking Status: Never smoker Past Alcohol Use History: Occasional Past Drug Use History: None Reported - Past Family History Sister(s) Family Medical History: Cancer Father Family Medical History: Cancer, Deep Vein Thrombosis (DVT) Mother Family Medical History: Dementia Additional Family Medical History / Comment(s): from alzheimer's Medications and Allergies Home Medications Medication Instructions Recorded Confirmed Type Omeprazole [PriLOSEC] 20 mg PO HS 08/18/16 05/21/23 History Simvastatin [Zocor] 20 mg PO HS 08/18/16 05/21/23 History valACYclovir HCL [Valtrex] 500 mg PO QAM 08/18/16 05/21/23 History Docusate [Colace] 100 mg PO DAILY PRN 09/24/16 05/21/23 History Midodrine [ProAmatine] 10 mg PO AC-TID #90 tab 10/04/16 05/21/23 Rx Finasteride [Proscar] 5 mg PO HS 03/30/18 05/21/23 History Lenalidomide [Revlimid] 2.5 mg PO MOTH 03/30/18 05/21/23 History Metoprolol Tartrate [Lopressor] 50 mg PO DAILY 03/30/18 05/21/23 History Pregabalin [Lyrica] 75 mg PO BID 03/30/18 05/21/23 History Pro-Renal + Vit D (Unknown) 1 tab PO DAILY 03/30/18 05/21/23 History Calcium Carbonate [Tums] 1,000 mg PO Q3H 05/21/23 05/21/23 History Diphenox-Atrop 2.5-0.025 mg 1 tab PO 5XD PRN 05/21/23 05/21/23 History [Lomotil] Ergocalciferol (Vitamin D2) 1,250 mcg PO SA 05/21/23 05/21/23 History [Drisdol (50,000 Iu)] Furosemide [Lasix] 80 mg PO BID 05/21/23 05/21/23 History Magnebind 1 cap PO DAILY 05/21/23 05/21/23 History Magnesium Oxide [Mag-Ox] 400 mg PO DAILY 05/21/23 05/21/23 History Micera 50mcg/0.3ml 50 mcg INJ Q14D 05/21/23 05/21/23 History Potassium Chloride ER [K-Dur 20] 20 meq PO BID 05/21/23 05/21/23 History Sodium Bicarbonate Tab 650 mg PO DAILY 05/21/23 05/21/23 History Sulfamethox-Tmp 800-160Mg [Bactrim 1 tab PO MOWEFR 05/21/23 05/21/23 History DS 800-160 mg] Tamsulosin [Flomax] 0.4 mg PO HS 05/21/23 05/21/23 History calcitrioL [Calcitriol] 0.5 mcg PO WE 05/21/23 05/21/23 History Allergies Allergy/AdvReac Type Severity Reaction Status Date / Time ondansetron AdvReac Constipatio Verified 05/21/23 14:06 n Physical Exam Vitals: Vital Signs Temp Pulse Pulse Resp BP BP Pulse Ox 05/22/23 07:12 97.7 F 64 17 105/69 98 05/22/23 01:49 98.9 F 96 17 117/68 95 05/21/23 17:19 97.5 F L 77 18 108/68 98 05/21/23 15:25 97.5 F L 89 18 113/56 97 Intake and Output 05/21/23 05/22/23 05/22/23 22:59 06:59 14:59 Intake Total 118 480 Balance 118 480 Intake: Oral 118 480 Other: Voiding Method Toilet Toilet # Voids 1 1 Weight 95.254 kg 95.8 kg Patient is awake, comfortable, no acute distress alert oriented 3 Examination of the heart S1 and S2 Examination of the lungs bilateral breath sounds are heard Abdomen is soft distended nontender Examination of lower extremities shows edema 2+ bilaterally RFID ENGINEER exam grossly intact Results - Lab Results Most recent lab results Calcium 6.2 mg/dL (8.4-10.2) L* 05/22/23 10:40 05/21/23 12:12 05/22/23 10:40 Assessment and Plan Assessment: 1. End-stage renal disease maintained on peritoneal dialysis. Patient will be switched to temporary hemodialysis as PD catheter will be removed 2. PD peritonitis with recurrent infection in the last 6 weeks. Fluid culture grew staph epidermidis as outpatient. PD catheter is currently nonfunctional and it will be removed. 3. Volume overload 4. Hypervolemic hyponatremia 5. 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 Plan: Remove PD catheter IV vancomycin Consult vascular surgery for dialysis catheter placement and patient will be switched to temporary hemodialysis. Hopefully we can resume peritoneal dialysis again down the road in 4-6 weeks. Patient has not tolerated hemodialysis well previously. Discussed with patient and his
[2023-05-22] MEDS ORDERED: VANCOMYCIN IV PER PHARMACY 1 EACH MISC MISCELLANE PRN (14:15)
[2023-05-22] MEDS ORDERED: VANCOMYCIN 1,500 MG in SODIUM CHLORIDE 0.9% 500 ML 500 ML IVPB STA (14:22)
[2023-05-22] MEDS ORDERED: LIDOCAINE 1% INJ 10MG/ML (20 ML MDV) SQ ONE ×2 (14:34→14:59)
[2023-05-22] MEDS ORDERED: MIDAZOLAM 2 MG/2 ML VIAL IVP ONE (14:34)
[2023-05-22] MEDS ORDERED: SODIUM CHLORIDE 0.9% 500 ML 500 ML IV ONE (14:37)
--- NOTE | 2023-05-22 15:32 | P.GSCN ---
History of Present Illness History of present illness: 77-year-old gentleman known to me from the past patient has history of chronic renal failure, hypertension, patient has a peritoneal dialysis infected consulted for placement of a dialysis catheter. This patient had a dialysis catheter placed in the past on the both right and left jugular vein in the past Jugular vein occluded and on chest patient has a dilated veins surgeries the office artery stenosis patient had a catheter left IJ in the past also Chest clear good and both lungs patient are dilated veins on the anterior chest wall Chest is clear good and both lungs for second sound present Abdomen patient has a Dialysis which is infected Femorals are 1+ bilateral plan is placement of permanent dialysis catheter risk and complication discussed Past Medical History Past Medical History: Cancer, Dialysis, GERD/Reflux, Hyperlipidemia, Hypertension, Osteoarthritis (OA), Prostate Disorder, Renal Disease Additional Past Medical History / Comment(s): multiple myeloma, enlarged prostate, kidney stones, diverticulosis, hiatal hernia, hemodialysis august-October 2016, CAPD since October 2016, orthostatic hypotension, neuropathy, leaky mitral valve, weak left ventricle of heart History of Any Multi-Drug Resistant Organisms: None Reported Additional Past Surgical History / Comment(s): lithotripsy/laser, fatty tumor removed from rigt chest, colonoscopy, PERMA cath rt upper chest- removed 2016, hemodialysis cath august-October 27, bilateral cataracts removed, CAPD cath adjustment within two weeks of first insertion in 2016, pt is on oral CHEMO Revlamid Saturday and for the past 6.5 years. Past Anesthesia/Blood Transfusion Reactions: No Reported Reaction Additional Past Anesthesia/Blood Transfusion Reaction / Comm: previous blood transfusion without any reactions Past Psychological History: No Psychological Hx Reported Additional Psychological History / Comment(s): lives with augustine in a 2 story home but pt stays on first level. has 2 steps in which to enter home. uses a walker/cane when up. no pets. 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 Smoking Status: Never smoker Past Alcohol Use History: Occasional Past Drug Use History: None Reported - Past Family History Sister(s) Family Medical History: Cancer Father Family Medical History: Cancer, Deep Vein Thrombosis (DVT) Mother Family Medical History: Dementia Additional Family Medical History / Comment(s): from alzheimer's Medications and Allergies Home Medications Medication Instructions Recorded Confirmed Type Omeprazole [PriLOSEC] 20 mg PO HS 08/18/16 05/21/23 History Simvastatin [Zocor] 20 mg PO HS 08/18/16 05/21/23 History valACYclovir HCL [Valtrex] 500 mg PO QAM 08/18/16 05/21/23 History Docusate [Colace] 100 mg PO DAILY PRN 09/24/16 05/21/23 History Midodrine [ProAmatine] 10 mg PO AC-TID #90 tab 10/04/16 05/21/23 Rx Finasteride [Proscar] 5 mg PO HS 03/30/18 05/21/23 History Lenalidomide [Revlimid] 2.5 mg PO MOTH 03/30/18 05/21/23 History Metoprolol Tartrate [Lopressor] 50 mg PO DAILY 03/30/18 05/21/23 History Pregabalin [Lyrica] 75 mg PO BID 03/30/18 05/21/23 History Pro-Renal + Vit D (Unknown) 1 tab PO DAILY 03/30/18 05/21/23 History Calcium Carbonate [Tums] 1,000 mg PO Q3H 05/21/23 05/21/23 History Diphenox-Atrop 2.5-0.025 mg 1 tab PO 5XD PRN 05/21/23 05/21/23 History [Lomotil] Ergocalciferol (Vitamin D2) 1,250 mcg PO SA 05/21/23 05/21/23 History [Drisdol (50,000 Iu)] Furosemide [Lasix] 80 mg PO BID 05/21/23 05/21/23 History Magnebind 1 cap PO DAILY 05/21/23 05/21/23 History Magnesium Oxide [Mag-Ox] 400 mg PO DAILY 05/21/23 05/21/23 History Micera 50mcg/0.3ml 50 mcg INJ Q14D 05/21/23 05/21/23 History Potassium Chloride ER [K-Dur 20] 20 meq PO BID 05/21/23 05/21/23 History Sodium Bicarbonate Tab 650 mg PO DAILY 05/21/23 05/21/23 History Sulfamethox-Tmp 800-160Mg [Bactrim 1 tab PO MOWEFR 05/21/23 05/21/23 History DS 800-160 mg] Tamsulosin [Flomax] 0.4 mg PO HS 05/21/23 05/21/23 History calcitrioL [Calcitriol] 0.5 mcg PO WE 05/21/23 05/21/23 History Allergies Allergy/AdvReac Type Severity Reaction Status Date / Time ondansetron AdvReac Constipatio Verified 05/21/23 14:06 n Surgical - Exam Vital Signs Temp Pulse Resp BP Pulse Ox 97.4 F L 95 16 121/68 100 05/21/23 11:41 05/21/23 11:41 05/21/23 11:41 05/21/23 11:41 05/21/23 11:41 Results - Labs 05/21/23 12:12 05/22/23 10:40 Abnormal Lab Results - Last 24 Hours (Table) 05/22/23 Range/Units 10:40 Sodium 128 L (137-145) mmol/L Chloride 92 L (98-107) mmol/L BUN 71 H (9-20) mg/dL Creatinine 9.36 H* (0.66-1.25) mg/dL Glucose 105 H (74-99) mg/dL Calcium 6.2 L* (8.4-10.2) mg/dL Total Protein 4.3 L (6.3-8.2) g/dL Albumin 2.4 L (3.5-5.0) g/dL Diabetes panel 05/22/23 Range/Units 10:40 Sodium 128 L (137-145) mmol/L Potassium 3.7 (3.5-5.1) mmol/L Chloride 92 L (98-107) mmol/L Carbon Dioxide 22 (22-30) mmol/L BUN 71 H (9-20) mg/dL Creatinine 9.36 H* (0.66-1.25) mg/dL Glucose 105 H (74-99) mg/dL Calcium 6.2 L* (8.4-10.2) mg/dL AST 23 (17-59) U/L ALT 13 (4-49) U/L Alkaline Phosphatase 55 (38-126) U/L Total Protein 4.3 L (6.3-8.2) g/dL Albumin 2.4 L (3.5-5.0) g/dL Calcium panel 05/22/23 Range/Units 10:40 Calcium 6.2 L* (8.4-10.2) mg/dL Albumin 2.4 L (3.5-5.0) g/dL Pituitary panel 05/22/23 Range/Units 10:40 Sodium 128 L (137-145) mmol/L Potassium 3.7 (3.5-5.1) mmol/L Chloride 92 L (98-107) mmol/L Carbon Dioxide 22 (22-30) mmol/L BUN 71 H (9-20) mg/dL Creatinine 9.36 H* (0.66-1.25) mg/dL Glucose 105 H (74-99) mg/dL Calcium 6.2 L* (8.4-10.2) mg/dL Adrenal panel 05/22/23 Range/Units 10:40 Sodium 128 L (137-145) mmol/L Potassium 3.7 (3.5-5.1) mmol/L Chloride 92 L (98-107) mmol/L Carbon Dioxide 22 (22-30) mmol/L BUN 71 H (9-20) mg/dL Creatinine 9.36 H* (0.66-1.25) mg/dL Glucose 105 H (74-99) mg/dL Calcium 6.2 L* (8.4-10.2) mg/dL Total Bilirubin 0.4 (0.2-1.3) mg/dL AST 23 (17-59) U/L ALT 13 (4-49) U/L Alkaline Phosphatase 55 (38-126) U/L Total Protein 4.3 L (6.3-8.2) g/dL Albumin 2.4 L (3.5-5.0) g/dL
[2023-05-22 15:46] LABS: HCT 21.6 % (39.6-50.0); HGB 7.5 g/dL (13.0-17.0); MCH 39.5 pg (27.0-32.0); MCHC 34.7 g/dL (32.0-37.0); MCV 113.7 FL (80.0-97.0); Mean Platelet Volume 12.1 FL (9.5-12.2); NRBC Per 100 WBC 0 X 10*3/uL (0.00-0.01); Platelet Count 112 X 10*3/uL (140-440); RDW 15.6 % (11.5-14.5); WBC 4.62 X 10*3/uL (4.50-10.00)
[2023-05-22] MEDS: SODIUM CHLORIDE 0.9% 1,000 ML IV SCH (15:56)
--- NOTE | 2023-05-22 16:14 | IR ---
EXAMINATION TYPE: IR cvc insert non tunneled DATE OF EXAM: 05/22/2023 FLUOROSCOPY Dialysis, 0.7 minutes 3.4908 Gycm2 DAP 14.5F x 23cm Dialysis cath rt gr 181 images provided.
[2023-05-22 16:15] LABS: Basophils # (A) 0.03 X 10*3/uL (0.00-0.10); Basophils % (A) 0.6 %; Eosinophils # (A) 0.09 X 10*3/uL (0.04-0.35); Eosinophils % (A) 1.9 %; Lymphocytes % (A) 6.5 %; Monocytes % (A) 17.3 %; Neutrophils # (A) 3.34 X 10*3/uL (1.80-7.70); Neutrophils % (A) 72.4 %
[2023-05-22] MEDS: TAMSULOSIN 0.4 MG CAP.ER.24H PO SCH (20:02)
[2023-05-22] MEDS: ATORVASTATIN 10 MG TAB PO SCH (20:02)
[2023-05-22] MEDS: FINASTERIDE 5 MG TAB PO SCH (20:02)
[2023-05-22] MEDS: PANTOPRAZOLE 40 MG TABLET PO SCH (20:03)
--- NOTE | 2023-05-22 21:59 | OP ---
OPERATIVE REPORT DATE OF SERVICE : PREOPERATIVE DIAGNOSIS: Acute on chronic renal failure, infected peritoneal dialysis catheter. POSTOPERATIVE DIAGNOSIS: Acute on chronic renal failure, infected peritoneal dialysis catheter. PROCEDURE PERFORMED: Ultrasound-guided permanent dialysis catheter, right femoral approach. DESCRIPTION OF PROCEDURE: This patient has history of occlusion of the right IJ in the past. The patient had bilateral IJ catheter placed in the past, patient has marker varicosity, dilatation of the vein of the chest wall. The right groin was prepped and drapes applied in a sterile manner. 1% lidocaine plain infiltrated in the right groin. Ultrasound-guided micropuncture introduced in right femoral vein, micropuncture guidewire was passed. Then we passed a 4-[place] sheath on top of the guidewire and then we passed the guidewire. After that we created a tunnel. Through the tunnel, we brought dialysis catheter in groin incision area. Dilator was advanced and then sheath was advanced of the guidewire. Through the sheath, we introduced the dialysis catheter. Tip of the catheter in the inferior vena cava flushed with heparin saline and hep-locked, secured with 3-0 nylon, dressing applied. The patient tolerated the procedure well. MMODL / IJN: [id number] /
[2023-05-23] MEDS: CALCIUM CARBONATE 500 MG CHEWABLE PO SCH ×7 (03:14→22:22)
[2023-05-23] MEDS: FOLIC ACID-VIT B COMPLEX-VIT C 1 CAP PO SCH (07:47)
[2023-05-23] MEDS: PREGABALIN 75 MG CAP PO SCH ×2 (07:48→22:23)
[2023-05-23] MEDS: MAGNEBIND PO SCH (07:48)
[2023-05-23] MEDS: MAGNESIUM OXIDE 400 MG TAB PO SCH (07:48)
[2023-05-23] MEDS: MIDODRINE 5 MG TAB PO SCH ×3 (07:49→17:55)
[2023-05-23] MEDS ORDERED: LENALIDOMIDE 2.5 MG PO SCH (09:00)
[2023-05-23] MEDS ORDERED: VANCOMYCIN 1,500 MG in SODIUM CHLORIDE 0.9% 500 ML 500 ML IVPB ONE (12:00)
--- NOTE | 2023-05-23 12:59 | P.PN ---
Subjective Patient is seen on hemodialysis. 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 Scheduled for removal of PD catheter this afternoon. Tolerating treatment well Objective - Vital Signs Vital signs: Vital Signs Temp 98.2 F 05/23/23 12:55 Pulse 89 05/23/23 07:25 Resp 22 05/23/23 12:55 BP 134/66 05/23/23 12:55 Pulse Ox 96 05/23/23 07:25 FiO2 Intake & Output 05/22/23 05/23/23 05/23/23 18:59 06:59 18:59 Intake Total 1270 400 Output Total 1800 Balance 1270 -1400 Weight 96.1 kg Intake: IV 50 Intake, IV Titration 500 Amount Vancomycin 1,500 mg In 500 Sodium Chloride 0.9% 500 ml 500 ml @ 167 mls/hr IVPB ONCE STA Rx#: [id number] Oral 720 Hemodialysis 400 Output: Hemodialysis 1800 Other: Voiding Method Toilet Toilet # Voids 1 3 # Bowel Movements 2 - Exam patient is awake, comfortable, no acute distress alert oriented 3 Examination of the heart S1 and S2 Examination of the lungs bilateral breath sounds are heard Abdomen is soft distended nontender Examination of lower extremities shows edema 2+ bilaterally GEOSPATIAL INFORMATION TECHNOLOGIST exam grossly intact - Labs CBC & Chem 7: 05/22/23 10:40 05/22/23 10:40 Labs: Abnormal Lab Results - Last 24 Hours (Table) 05/22/23 Range/Units 10:40 RBC 1.90 L (4.40-5.60) X 10*6/uL Hgb 7.5 L (13.0-17.0) g/dL Hct 21.6 L (39.6-50.0) % MCV 113.7 H (80.0-97.0) FL MCH 39.5 H (27.0-32.0) pg RDW 15.6 H (11.5-14.5) % Plt Count 112 L (140-440) X 10*3/uL Immature Gran # 0.06 H (0.00-0.04) X 10*3/uL Lymphocytes # 0.30 L (0.90-5.00) X 10*3/uL Assessment and Plan Assessment: 1. End-stage renal disease maintained on peritoneal dialysis. Patient will be switched to temporary hemodialysis as PD catheter will be removed 2. PD peritonitis with recurrent infection in the last 6 weeks. Fluid culture grew staph epidermidis as outpatient. PD catheter is currently nonfunctional and it will be removed. 3. Volume overload 4. Hypervolemic hyponatremia 5. Chronic hypocalcemia and CK D mineral bone disorder maintained on calcium s upplementation and small dose of calcitriol. Plan: Repeat hemodialysis in a.m. Sent PD fluid for culture in the OR Case management to set up outpatient chair time.
[2023-05-23] MEDS: POTASSIUM CHLORIDE ER 20 MEQ TAB.ER PO SCH ×2 (13:25→22:23)
[2023-05-23] MEDS: FUROSEMIDE 80 MG TAB PO SCH ×2 (13:26→16:13)
[2023-05-23] MEDS: valACYclovir HCL 500 MG TAB PO SCH (13:26)
[2023-05-23] MEDS: METOPROLOL TARTRATE 50 MG TAB PO SCH (13:26)
--- NOTE | 2023-05-23 15:54 | P.PN ---
Subjective Progress Note Date: 05/23/23 Dean Earl, is a 77-year-old who presented to [facility] emergency room with a chief complaint of mal-functioning peritoneal dialysis catheter He was evaluated in the emergency room, nephrology were contacted, patient will need to be admitted for replacement of peritoneal dialysis catheter, and short- term hemodialysis replacement. He was evaluated in the emergency room vital examination on presentation revealed a temperature of 97.4 pulse 95 respirations 16 blood pressure 121/68 pulse ox 100% on room air Laboratory data reveals a white blood count of 5.5 hemoglobin 9.0 platelet count 123 BUN 67 creatinine 7.8 Patient was admitted to medical floor for further evaluation and treatment Past medical history is significant for end-stage renal disease maintained on peritoneal dialysis since 2017, multiple myeloma, GERD, hypertension, hyperlipidemia, osteoarthritis, neuropathy and orthostatic hypotension On review of systems denies any chest pain or shortness of breath. Patient denies nausea vomiting or diarrhea. Patient denies any urinary burning or frequency On 05/22/2023 patient is alert and oriented 3. Awaiting further recommendations from nephrology for possible initiation of hemodialysis. Surgical services also consulted to evaluate peritoneal dialysis site. Current vital signs temp 97.7, heart rate 64, respiratory rate 17, blood pressure 05/17/1957 pulse ox 90% on room air On 05/23/2023 patient was seen and examined on the medical floor he is alert and oriented 3 in no apparent distress, hemodialysis catheter was placed and patient was started on hemodialysis, vital exam reveals a temperature of 98.2 pulse 98 respiration 22 blood pressure 123/72 pulse ox 98% on room air white blood count 4.62 hemoglobin 7.5 platelet count 112 BUN 71 creatinine 9.36 patient is maintained on IV vancomycin for peritonitis infectious disease consultation requested Objective - Vital Signs Vital signs: Vital Signs Temp 98.2 F 05/23/23 12:55 Pulse 98 05/23/23 12:54 Resp 22 05/23/23 12:55 BP 134/66 05/23/23 12:55 Pulse Ox 98 05/23/23 12:54 FiO2 Intake & Output 05/22/23 05/23/23 05/23/23 18:59 06:59 18:59 Intake Total 1270 400 Output Total 1800 Balance 1270 -1400 Weight 96.1 kg Intake: IV 50 Intake, IV Titration 500 Amount Vancomycin 1,500 mg In 500 Sodium Chloride 0.9% 500 ml 500 ml @ 167 mls/hr IVPB ONCE STA Rx#: [id number] Oral 720 Hemodialysis 400 Output: Hemodialysis 1800 Other: Voiding Method Toilet Toilet # Voids 1 3 # Bowel Movements 2 - Exam In general patient is alert and oriented x 3 in no distress HEENT head normocephalic and atraumatic Neck is supple no JVD no goiter no lymphadenopathy no carotid bruit Chest examination is clear to auscultation no crackles no wheezing Cardiac exam reveals regular heart sounds S1 and S2 no gallops no murmurs Abdomen is soft nontender no organomegaly with normal bowel sounds Extremity exam reveals no edema no cyanosis or clubbing Neurological examination reveals no gross focal deficits - Labs CBC & Chem 7: 05/22/23 10:40 05/22/23 10:40 Labs: Abnormal Lab Results - Last 24 Hours (Table) 05/22/23 Range/Units 10:40 Immature Gran # 0.06 H (0.00-0.04) X 10*3/uL Lymphocytes # 0.30 L (0.90-5.00) X 10*3/uL Assessment and Plan Plan: Poorly functioning peritoneal dialysis catheter Underlying history of end-stage renal disease Underlying history of hypertension Underlying history of hyperlipidemia Underlying history of gout Underlying history of multiple myeloma Underlying history of anemia At this time patient is admitted to medical floor Nephrology consultation and general surgery consultation requested Patient may require hemodialysis until his replacement peritoneal dialysis catheter is functioning Home medications reviewed and reordered Will follow closely
[2023-05-23 16:01] LABS: Hepatitis B Surface Antigen Nonreactive
[2023-05-23 16:15] LABS: African American GFR (CKD) 9 (>60 ml/min/1.73 sqM); Anion Gap 8 mmol/L; Blood Urea Nitrogen 41 mg/dL (9-20); Calcium 6.9 mg/dL (8.4-10.2); Carbon Dioxide 24 mmol/L (22-30); Chloride 98 mmol/L (98-107); Glucose 91 mg/dL (74-99); Non-African American GFR(CKD) 8 (>60 ml/min/1.73 sqM); Potassium 3.9 mmol/L (3.5-5.1); Sodium 130 mmol/L (137-145)
[2023-05-23 16:45] LABS: Hepatitis B Surface AB- Quant 3.5 mIU/mL
--- NOTE | 2023-05-23 16:45 | P.PN ---
Subjective Progress Note Date: 05/23/23 CHIEF COMPLAINT: Spontaneous bacterial peritonitis HISTORY OF PRESENT ILLNESS: The patient is a 77-year-old male with peritoneal dialysis catheter. He status post placement of dialysis access yesterday with first time dialysis today. gives additional history the patient has pre- existing troubles with swallowing. Separately, patient denies abdominal pain at this time. ROS: No reports of nausea and vomiting. No fevers or chills. No new chest pain. No productive sputum PHYSICAL EXAM: VITAL SIGNS: Reviewed CONSTITUTIONAL: Well developed and in no acute distress. EYES: Conjuctivae without sclera icterus. Extraocular movements grossly intact. HEAD, EARS, NOSE, THROAT: Moist buccal mucosa. Head is atraumatic, normocephalic. Hears conversational speech. No nasal drainage. RESPIRATORY: Non-labored respirations and equal bilateral excursions. CARDIOVASCULAR: Palpable 2+ radial pulses. ABDOMEN: Peritonitis dialysis intact cloudy. MUSCULOSKELETAL: No gross deformity of the lower extremities noted. No clubbing. No cyanosis. SKIN: Good skin turgor. Well perfused. NEUROLOGIC: Cranial nerves II through XII grossly intact. No focal or lateralizing signs. PSYCH: Appropriate affect. Alert and oriented to person, place and time. CLINICAL LABS: Reviewed. Hemoglobin low 7.5. Sodium 130. ASSESSMENT: 1. End-stage renal disease dialysis dependent 2. Hyponatremia 3. Acute anemia PLAN: 1. Recommend surgery after correction of anemia and improvement of sodium leve ls. 2. May need blood transfusion prior to removal of peritoneal dialysis catheter 3. Recommend start of diet as patient has not eaten in 2 days. Objective - Vital Signs Vital signs: Vital Signs Temp 97.2 F L 05/23/23 16:02 Pulse 71 05/23/23 16:02 Resp 16 05/23/23 16:02 BP 115/58 05/23/23 16:02 Pulse Ox 98 05/23/23 16:02 FiO2 Intake & Output 05/22/23 05/23/23 05/23/23 18:59 06:59 18:59 Intake Total 1270 400 Output Total 1800 Balance 1270 -1400 Weight 96.1 kg Intake: IV 50 Intake, IV Titration 500 Amount Vancomycin 1,500 mg In 500 Sodium Chloride 0.9% 500 ml 500 ml @ 167 mls/hr IVPB ONCE STA Rx#: [id number] Oral 720 Hemodialysis 400 Output: Hemodialysis 1800 Other: Voiding Method Toilet Toilet # Voids 1 3 # Bowel Movements 2 - Labs CBC & Chem 7: 05/22/23 10:40 05/23/23 15:21 Labs: Abnormal Lab Results - Last 24 Hours (Table) 05/23/23 Range/Units 15:21 Sodium 130 L (137-145) mmol/L BUN 41 H (9-20) mg/dL Creatinine 6.31 H (0.66-1.25) mg/dL Calcium 6.9 L (8.4-10.2) mg/dL
[2023-05-23] MEDS: PANTOPRAZOLE 40 MG TABLET PO SCH (22:22)
[2023-05-23] MEDS: TAMSULOSIN 0.4 MG CAP.ER.24H PO SCH (22:22)
[2023-05-23] MEDS: FINASTERIDE 5 MG TAB PO SCH (22:22)
[2023-05-23] MEDS: ATORVASTATIN 10 MG TAB PO SCH (22:23)
[2023-05-24] MEDS: CALCIUM CARBONATE 500 MG CHEWABLE PO SCH ×7 (01:51→23:36)
[2023-05-24 07:23] LABS: African American GFR (CKD) 7 (>60 ml/min/1.73 sqM); Anion Gap 11 mmol/L; Blood Urea Nitrogen 45 mg/dL (9-20); Calcium 6.9 mg/dL (8.4-10.2); Carbon Dioxide 22 mmol/L (22-30); Chloride 97 mmol/L (98-107); Glucose 77 mg/dL (74-99); Non-African American GFR(CKD) 6 (>60 ml/min/1.73 sqM); Potassium 3.9 mmol/L (3.5-5.1); Sodium 130 mmol/L (137-145)
[2023-05-24 07:33] LABS: Anisocytosis Slight; HCT 22.4 % (39.0-53.0); MCH 41.2 pg (25.0-35.0); MCHC 35.5 g/dL (31.0-37.0); Macrocytosis Marked; Mean Platelet Volume 9.6; Platelet Count 111 k/uL (150-450); RBC 1.93 m/uL (4.30-5.90); RDW 16.5 % (11.5-15.5); WBC 3.1 k/uL (3.8-10.6)
[2023-05-24] MEDS: MAGNEBIND PO SCH (07:35)
--- NOTE | 2023-05-24 09:26 | P.CONS ---
History of Present Illness - Reason for Consult Consult date: 05/23/23 - History of Present Illness Patient is a 77-year-old male with a past medical history significant for hypertension hyperlipidemia osteoarthritis end-stage renal disease on this patient has been on peritoneal dialysis for many years previously has been on hemodialysis through the left sided permacatheter however the patient was unable to tolerate hemodialysis as he was switched over to peritoneal dialysis and the patient was doing well recently did have a dense of PD catheter associated peritonitis that has been treated with the vancomycin and the dialysis fluid patient apparently did have some improvement however the mention after completion of his antibiotic therapy she was still noticing some foul-smelling to the dialysate bag so she called the business mail entry clerk and repeat fluid was sent which was suspicious for PD catheter cystic peritonitis and the patient was advised to come to the hospital patient on presentation to the hospital was afebrile and no fever has been recorded subsequently patient did have a white count of 3.1 creatinine 9.6 liver enzymes are normal, patient did have abdominal x-ray distal aspect of the patient PD catheter is located in the left paramedian mid pelvis nonobstructive bowel gas pattern patient did get the right groin dialysis catheter by vascular surgery and attempt was made to remove his PD catheter today however patient was hypoglycemic and the patient was feeling weak has a procedure was aborted infectious he was consulted today for further management of antibiotic therapy for his PD catheter associated peritonitis as mentioned earlier the patient denies having any fever or any chills he did have some dull aching pain to the abdominal area mild to moderate intensity without radiation. Denies having any purulent drainage around his dialysis catheter site Past Medical History Past Medical History: Cancer, Dialysis, GERD/Reflux, Hyperlipidemia, Hypertension, Osteoarthritis (OA), Prostate Disorder, Renal Disease Additional Past Medical History / Comment(s): multiple myeloma, enlarged prostate, kidney stones, diverticulosis, hiatal hernia, hemodialysis august-October 2016, CAPD since October 2016, orthostatic hypotension, neuropathy, leaky mitral valve, weak left ventricle of heart History of Any Multi-Drug Resistant Organisms: None Reported Additional Past Surgical History / Comment(s): lithotripsy/laser, fatty tumor removed from rigt chest, colonoscopy, PERMA cath rt upper chest- removed 2016, hemodialysis cath august-October 27, bilateral cataracts removed, CAPD cath adjustment within two weeks of first insertion in 2016, pt is on oral CHEMO Revlamid Saturday and for the past 6.5 years. Past Anesthesia/Blood Transfusion Reactions: No Reported Reaction Additional Past Anesthesia/Blood Transfusion Reaction / Comm: previous blood transfusion without any reactions Past Psychological History: No Psychological Hx Reported Additional Psychological History / Comment(s): lives with augustine in a 2 story home but pt stays on first level. has 2 steps in which to enter home. uses a walker/cane when up. no pets. 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 Smoking Status: Never smoker Past Alcohol Use History: Occasional Past Drug Use History: None Reported - Past Family History Sister(s) Family Medical History: Cancer Father Family Medical History: Cancer, Deep Vein Thrombosis (DVT) Mother Family Medical History: Dementia Additional Family Medical History / Comment(s): from alzheimer's Medications and Allergies Home Medications Medication Instructions Recorded Confirmed Type Omeprazole [PriLOSEC] 20 mg PO HS 08/18/16 05/21/23 History Simvastatin [Zocor] 20 mg PO HS 08/18/16 05/21/23 History valACYclovir HCL [Valtrex] 500 mg PO QAM 08/18/16 05/21/23 History Docusate [Colace] 100 mg PO DAILY PRN 09/24/16 05/21/23 History Midodrine [ProAmatine] 10 mg PO AC-TID #90 tab 10/04/16 05/21/23 Rx Finasteride [Proscar] 5 mg PO HS 03/30/18 05/21/23 History Lenalidomide [Revlimid] 2.5 mg PO MOTH 03/30/18 05/21/23 History Metoprolol Tartrate [Lopressor] 50 mg PO DAILY 03/30/18 05/21/23 History Pregabalin [Lyrica] 75 mg PO BID 03/30/18 05/21/23 History Pro-Renal + Vit D (Unknown) 1 tab PO DAILY 03/30/18 05/21/23 History Calcium Carbonate [Tums] 1,000 mg PO Q3H 05/21/23 05/21/23 History Diphenox-Atrop 2.5-0.025 mg 1 tab PO 5XD PRN 05/21/23 05/21/23 History [Lomotil] Ergocalciferol (Vitamin D2) 1,250 mcg PO SA 05/21/23 05/21/23 History [Drisdol (50,000 Iu)] Furosemide [Lasix] 80 mg PO BID 05/21/23 05/21/23 History Magnebind 1 cap PO DAILY 05/21/23 05/21/23 History Magnesium Oxide [Mag-Ox] 400 mg PO DAILY 05/21/23 05/21/23 History Micera 50mcg/0.3ml 50 mcg INJ Q14D 05/21/23 05/21/23 History Potassium Chloride ER [K-Dur 20] 20 meq PO BID 05/21/23 05/21/23 History Sodium Bicarbonate Tab 650 mg PO DAILY 05/21/23 05/21/23 History Sulfamethox-Tmp 800-160Mg [Bactrim 1 tab PO MOWEFR 05/21/23 05/21/23 History DS 800-160 mg] Tamsulosin [Flomax] 0.4 mg PO HS 05/21/23 05/21/23 History calcitrioL [Calcitriol] 0.5 mcg PO WE 05/21/23 05/21/23 History Allergies Allergy/AdvReac Type Severity Reaction Status Date / Time ondansetron AdvReac Constipatio Verified 05/23/23 15:54 n Physical Exam Vitals: Vital Signs Temp Pulse Resp BP Pulse Ox 05/23/23 16:02 97.2 F L 71 16 115/58 98 05/23/23 12:55 98.2 F 22 134/66 05/23/23 12:54 97.5 F L 98 16 123/72 98 05/23/23 07:25 97.6 F 89 18 117/65 96 05/23/23 02:00 98.7 F 79 16 114/70 98 05/22/23 20:00 98.4 F 82 16 120/68 97 05/22/23 16:45 76 124/67 96 Intake and Output 05/23/23 05/23/23 05/23/23 06:59 14:59 22:59 Intake Total 400 Output Total 1800 Balance -1400 Intake: Hemodialysis 400 Output: Hemodialysis 1800 Other: # Voids 3 # Bowel Movements 2 Weight 96.1 kg Results CBC & Chem 7: 05/24/23 06:02 05/24/23 06:02 Labs: Abnormal Lab Results - Last 24 Hours (Table) 05/23/23 Range/Units 15:21 Sodium 130 L (137-145) mmol/L BUN 41 H (9-20) mg/dL Creatinine 6.31 H (0.66-1.25) mg/dL Calcium 6.9 L (8.4-10.2) mg/dL Assessment and Plan Plan: 1patient presented to hospital with nonfunctioning of his PD catheter and apparently the patient did have problem with the infection in the outpatient setting that has been treated with the vancomycin and the peritoneal dialysis fluid as the patient did not have any exchange during this admission no fluid has been sent we will try to obtain culture data from the outpatient dialysis center 2patient to continue vancomycin pharmacy to dose target trough 15 at the bedside questions were answered We will follow on clinical condition and cultures to further adjust medication if needed Thank you for this consultation we will follow the patient along with you Dictation was produced using [employer] dictation software. please excuse any grammatical, word or spelling errors. Time with Patient: Greater than 30
[2023-05-24 09:49] LABS: Eosinophils # (M) 0.22 k/uL (0-0.7); Monocytes # (M) 0.56 k/uL (0-1.0); Neutrophils # (M) 1.83 k/uL (1.3-7.7); Neutrophils % (M) 59 %; Nucleated Red Blood Cells 0 /100 WBC (0-0); Total Cells Counted 100
[2023-05-24 09:55] LABS: Polychromasia Present
--- NOTE | 2023-05-24 10:47 | P.PN ---
Subjective Progress Note Date: 05/24/23 Dean Earl, is a 77-year-old who presented to [facility] emergency room with a chief complaint of mal-functioning peritoneal dialysis catheter He was evaluated in the emergency room, nephrology were contacted, patient will need to be admitted for replacement of peritoneal dialysis catheter, and short- term hemodialysis replacement. He was evaluated in the emergency room vital examination on presentation revealed a temperature of 97.4 pulse 95 respirations 16 blood pressure 121/68 pulse ox 100% on room air Laboratory data reveals a white blood count of 5.5 hemoglobin 9.0 platelet count 123 BUN 67 creatinine 7.8 Patient was admitted to medical floor for further evaluation and treatment Past medical history is significant for end-stage renal disease maintained on peritoneal dialysis since 2017, multiple myeloma, GERD, hypertension, hyperlipidemia, osteoarthritis, neuropathy and orthostatic hypotension On review of systems denies any chest pain or shortness of breath. Patient denies nausea vomiting or diarrhea. Patient denies any urinary burning or frequency On 05/22/2023 patient is alert and oriented 3. Awaiting further recommendations from nephrology for possible initiation of hemodialysis. Surgical services also consulted to evaluate peritoneal dialysis site. Current vital signs temp 97.7, heart rate 64, respiratory rate 17, blood pressure 05/17/1957 pulse ox 90% on room air On 05/23/2023 patient was seen and examined on the medical floor he is alert and oriented 3 in no apparent distress, hemodialysis catheter was placed and patient was started on hemodialysis, vital exam reveals a temperature of 98.2 pulse 98 respiration 22 blood pressure 123/72 pulse ox 98% on room air white blood count 4.62 hemoglobin 7.5 platelet count 112 BUN 71 creatinine 9.36 patient is maintained on IV vancomycin for peritonitis infectious disease consultation requested. 05/24/2023 patient alert and oriented 3 currently getting hemodialysis. Patient remains on IV vancomycin. Hemoglobin 8.0, creatinine 7.83 bun 45. Current vital signs temp 98.3, heart rate 93, respiratory rate 17, blood pressure 118/71 with pulse ox 97% Objective - Vital Signs Vital signs: Vital Signs Temp 98.3 F 05/24/23 07:57 Pulse 93 05/24/23 07:57 Resp 17 05/24/23 07:57 BP 118/71 05/24/23 07:57 Pulse Ox 97 05/24/23 07:57 FiO2 Intake & Output 05/23/23 05/24/23 05/24/23 18:59 06:59 18:59 Intake Total 1500 590 Output Total 1800 Balance -300 590 Weight 95.2 kg Intake: Intake, IV Titration 500 Amount Vancomycin 1,500 mg In 500 Sodium Chloride 0.9% 500 ml 500 ml @ 167 mls/hr IVPB ONCE ONE Rx#: [id number] Oral 600 590 Hemodialysis 400 Output: Hemodialysis 1800 Other: Voiding Method Toilet # Voids 1 2 - Exam In general patient is alert and oriented x 3 in no distress HEENT head normocephalic and atraumatic Neck is supple no JVD no goiter no lymphadenopathy no carotid bruit Chest examination is clear to auscultation no crackles no wheezing Cardiac exam reveals regular heart sounds S1 and S2 no gallops no murmurs Abdomen is soft nontender no organomegaly with normal bowel sounds Extremity exam reveals no edema no cyanosis or clubbing Neurological examination reveals no gross focal deficits - Labs CBC & Chem 7: 05/24/23 06:02 05/24/23 06:02 Labs: Abnormal Lab Results - Last 24 Hours (Table) 05/23/23 05/24/23 05/24/23 Range/Units 15:21 06:02 06:02 WBC 3.1 L (3.8-10.6) k/uL RBC 1.93 L (4.30-5.90) m/uL Hgb 8.0 L (13.0-17.5) gm/dL Hct 22.4 L (39.0-53.0) % MCV 116.0 H (80.0-100.0) fL MCH 41.2 H (25.0-35.0) pg RDW 16.5 H (11.5-15.5) % Plt Count 111 L (150-450) k/uL Lymphocytes # (Manual) 0.50 L (1.0-4.8) k/uL Macrocytosis Marked A Sodium 130 L 130 L (137-145) mmol/L Chloride 97 L (98-107) mmol/L BUN 41 H 45 H (9-20) mg/dL Creatinine 6.31 H 7.83 H* (0.66-1.25) mg/dL Calcium 6.9 L 6.9 L (8.4-10.2) mg/dL Assessment and Plan Plan: Poorly functioning peritoneal dialysis catheter Underlying history of end-stage renal disease Underlying history of hypertension Underlying history of hyperlipidemia Underlying history of gout Underlying history of multiple myeloma Underlying history of anemia At this time patient is admitted to medical floor Nephrology consultation and general surgery consultation requested Patient initiated on hemodialysis Patient maintained on IV vancomycin Home medications reviewed and reordered Will follow closely
--- NOTE | 2023-05-24 12:52 | P.PN ---
Subjective Patient is seen for follow-up of end-stage renal disease. Status post hemodialysis yesterday and today. Overall better. 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 Scheduled for removal of PD catheter this afternoon. Objective - Vital Signs Vital signs: Vital Signs Temp 98.2 F 05/24/23 11:13 Pulse 93 05/24/23 07:57 Resp 19 05/24/23 11:13 BP 144/73 05/24/23 11:13 Pulse Ox 97 05/24/23 07:57 FiO2 Intake & Output 05/23/23 05/24/23 05/24/23 18:59 06:59 18:59 Intake Total 1500 590 400 Output Total 1800 2400 Balance -300 590 -2000 Weight 95.2 kg Intake: Intake, IV Titration 500 Amount Vancomycin 1,500 mg In 500 Sodium Chloride 0.9% 500 ml 500 ml @ 167 mls/hr IVPB ONCE ONE Rx#: [id number] Oral 600 590 Hemodialysis 400 400 Output: Hemodialysis 1800 2400 Other: Voiding Method Toilet # Voids 1 2 - Exam patient is awake, comfortable, no acute distress alert oriented 3 Examination of the heart S1 and S2 Examination of the lungs bilateral breath sounds are heard Abdomen is soft distended nontender Examination of lower extremities shows edema 2+ bilaterally 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 - Labs CBC & Chem 7: 05/24/23 06:02 05/24/23 06:02 Labs: Abnormal Lab Results - Last 24 Hours (Table) 05/23/23 05/24/23 05/24/23 Range/Units 15:21 06:02 06:02 WBC 3.1 L (3.8-10.6) k/uL RBC 1.93 L (4.30-5.90) m/uL Hgb 8.0 L (13.0-17.5) gm/dL Hct 22.4 L (39.0-53.0) % MCV 116.0 H (80.0-100.0) fL MCH 41.2 H (25.0-35.0) pg RDW 16.5 H (11.5-15.5) % Plt Count 111 L (150-450) k/uL Lymphocytes # (Manual) 0.50 L (1.0-4.8) k/uL Macrocytosis Marked A Sodium 130 L 130 L (137-145) mmol/L Chloride 97 L (98-107) mmol/L BUN 41 H 45 H (9-20) mg/dL Creatinine 6.31 H 7.83 H* (0.66-1.25) mg/dL Calcium 6.9 L 6.9 L (8.4-10.2) mg/dL Assessment and Plan Assessment: 1. End-stage renal disease maintained on peritoneal dialysis. Patient will be switched to temporary hemodialysis as PD catheter will be removed 2. PD peritonitis with recurrent infection in the last 6 weeks. Fluid culture grew staph epidermidis as outpatient. PD catheter is currently nonfunctional and it will be removed. 3. Volume overload 4. Hypervolemic hyponatremia 5. 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 6. Anemia of chronic disease as well as secondary to underlying myeloma which is quite stable. Currently maintained on Revlimid. Plan: Repeat hemodialysis in a.m. Sent PD fluid for culture in the OR Case management to set up outpatient chair time. Add Caity
[2023-05-24] MEDS ORDERED: DARBEPOETIN ALFA 60 MCG/0.3 ML SYRINGE SQ SCH (13:00)
[2023-05-24] MEDS: MIDODRINE 5 MG TAB PO SCH ×3 (13:16→18:32)
[2023-05-24] MEDS: MAGNESIUM OXIDE 400 MG TAB PO SCH (13:17)
[2023-05-24] MEDS: SULFAMETHOX-TMP 800-160MG 1 EACH TAB PO SCH (13:17)
[2023-05-24] MEDS: POTASSIUM CHLORIDE ER 20 MEQ TAB.ER PO SCH ×2 (13:17→23:36)
[2023-05-24] MEDS: PREGABALIN 75 MG CAP PO SCH ×2 (13:17→23:36)
[2023-05-24] MEDS: FOLIC ACID-VIT B COMPLEX-VIT C 1 CAP PO SCH (13:17)
[2023-05-24] MEDS: FUROSEMIDE 80 MG TAB PO SCH ×2 (13:18→18:32)
[2023-05-24] MEDS: valACYclovir HCL 500 MG TAB PO SCH (13:18)
[2023-05-24] MEDS: METOPROLOL TARTRATE 50 MG TAB PO SCH (13:22)
--- NOTE | 2023-05-24 15:31 | P.PN ---
Subjective Progress Note Date: 05/24/23 Principal diagnosis: Reason for follow-up his PD catheter associated peritonitis Patient is a 77-year-old male with a past medical history significant for hypertension hyperlipidemia osteoarthritis end-stage renal disease on this patient has been on peritoneal dialysis for many years recently did have issues with the PD catheter associated peritonitis and has been treated in the outpatient setting with vancomycin and dialysis fluid subsequently did have problem with no exchanges for the patient has been admitted to the hospital patient did have a right groin hemodialysis catheter placement. On today's evaluation that is 05/24/2023, the patient remains to be afebrile, the patient is breathing comfortably denies any chest pain shortness of breath or cough, did have mild abdominal pain no nausea no vomiting and no diarrhea. Patient did have white count of 3.1, creatinine 7.83 no culture this admission Objective - Vital Signs Vital signs: Vital Signs Temp 97.6 F 05/24/23 12:56 Pulse 87 05/24/23 12:56 Resp 16 05/24/23 12:56 BP 144/73 05/24/23 12:56 Pulse Ox 98 05/24/23 12:56 FiO2 Intake & Output 05/23/23 05/24/23 05/24/23 18:59 06:59 18:59 Intake Total 1500 590 400 Output Total 1800 2400 Balance -300 590 -2000 Weight 95.2 kg Intake: Intake, IV Titration 500 Amount Vancomycin 1,500 mg In 500 Sodium Chloride 0.9% 500 ml 500 ml @ 167 mls/hr IVPB ONCE ONE Rx#: [id number] Oral 600 590 Hemodialysis 400 400 Output: Hemodialysis 1800 2400 Other: Voiding Method Toilet # Voids 1 2 - Exam GENERAL DESCRIPTION: An elderly male lying in bed in no distress RESPIRATORY SYSTEM: Unlabored breathing , decreased breath sounds at bases HEART: S1 S2 regular rate and rhythm , ABDOMEN: Soft , no tenderness EXTREMITIES: No edema feet - Labs CBC & Chem 7: 05/24/23 06:02 05/24/23 06:02 Labs: Abnormal Lab Results - Last 24 Hours (Table) 05/23/23 05/24/23 05/24/23 Range/Units 15:21 06:02 06:02 WBC 3.1 L (3.8-10.6) k/uL RBC 1.93 L (4.30-5.90) m/uL Hgb 8.0 L (13.0-17.5) gm/dL Hct 22.4 L (39.0-53.0) % MCV 116.0 H (80.0-100.0) fL MCH 41.2 H (25.0-35.0) pg RDW 16.5 H (11.5-15.5) % Plt Count 111 L (150-450) k/uL Lymphocytes # (Manual) 0.50 L (1.0-4.8) k/uL Macrocytosis Marked A Sodium 130 L 130 L (137-145) mmol/L Chloride 97 L (98-107) mmol/L BUN 41 H 45 H (9-20) mg/dL Creatinine 6.31 H 7.83 H* (0.66-1.25) mg/dL Calcium 6.9 L 6.9 L (8.4-10.2) mg/dL Assessment and Plan (1) Peritonitis Current Visit: Yes Status: Acute Code(s): K65.9 - PERITONITIS, UNSPECIFIED SNOMED Code(s): 45909925 Plan: 1patient presented to hospital with nonfunctioning of his PD catheter and ap parently the patient did have problem with the infection in the outpatient setting that has been treated with the vancomycin and the peritoneal dialysis fluid as the patient did not have any exchange during this admission no fluid has been sent, patient did grew Staph epidermidis in the peritoneal fluid as an outpatient 2patient to continue vancomycin pharmacy to dose target trough 15 and monitor clinical course closely currently waiting for removal of the PD catheter Dictation was produced using [employer] dictation software. please excuse any grammatical, word or spelling errors. Time with Patient: Less than 30
[2023-05-24] MEDS ORDERED: LENALIDOMIDE 2.5 MG PO SCH (18:00)
[2023-05-24] MEDS ORDERED: GLYCOPYRROLATE 0.2 MG/ML 2 ML VIAL ONE (19:48)
[2023-05-24] MEDS ORDERED: NEOSTIGMINE 1 MG/ML 10 ML VIAL ONE (19:48)
[2023-05-24] MEDS ORDERED: PROPOFOL 10 MG/ML 20 ML VIAL IV ONE (19:48)
[2023-05-24] MEDS ORDERED: ROCURONIUM 10 MG/ML (5 ML VIAL) IV ONE (19:48)
[2023-05-24] MEDS ORDERED: fentaNYL (PF) 50 MCG/ML 2 ML AMP ONE (19:48)
[2023-05-24] MEDS ORDERED: SUCCINYLCHOLINE CHLORIDE 200 MG/10 ML VIAL IV ONE (19:48)
[2023-05-24] MEDS ORDERED: LIDOCAINE 1% INJ 10MG/ML (20 ML MDV) ONE (19:48)
[2023-05-24] MEDS ORDERED: PHENYLEPHRINE 10 MG/ML VIAL ONE (19:48)
[2023-05-24] MEDS ORDERED: SODIUM CHLORIDE 0.9% 1,000 ML IV ONE (19:50)
[2023-05-24] MEDS ORDERED: LIDOCAINE 0.5%-EPI 1:200,000 50 ML VIAL SQ ONE (20:12)
[2023-05-24 22:18] LABS: Glucose,Whole Blood 113 mg/dL (70-110)
[2023-05-24] MEDS ORDERED: HYDROmorphone 1 MG/ML 1 ML SYRINGE IVP PRN (22:22)
[2023-05-24] MEDS: LACTATED RINGERS 1,000 ML IV SCH (23:35)
[2023-05-24] MEDS: PANTOPRAZOLE 40 MG TABLET PO SCH (23:36)
[2023-05-24] MEDS: FINASTERIDE 5 MG TAB PO SCH (23:36)
[2023-05-24] MEDS: ATORVASTATIN 10 MG TAB PO SCH (23:36)
[2023-05-25] MEDS: CALCIUM CARBONATE 500 MG CHEWABLE PO SCH ×8 (05:02→23:56)
[2023-05-25] MEDS ORDERED: HYDROmorphone 0.5 MG/0.5 ML SYRINGE IVP PRN (07:00)
[2023-05-25] MEDS ORDERED: ERGOCALCIFEROL 1,250 MCG (50,000 IU) CAPSULE PO SCH (09:00)
--- NOTE | 2023-05-25 09:32 | P.OP ---
Date of Procedure: 05/24/23 Description of Procedure: SURGEON: NEGIN CARR MD PREOPERATIVE DIAGNOSES: 1. Spontaneous bacterial peritonitis 2. End-stage renal disease, dialysis dependent 3. Hyponatremia 4. Hypokalemia 5. Obesity due to excess calories, BMI 31.9 6. Hypertensive heart disease with diastolic congestive heart failure 7. Hyperlipidemia 8. Gastroesophageal reflux disease 9. Benign prostatic hypertrophy 10. Multiple myeloma 11. Neuropathy 12. Orthostatic hypotension POSTOPERATIVE DIAGNOSES: 2. End-stage renal disease, dialysis dependent 3. Hyponatremia 4. Hypokalemia 5. Obesity due to excess calories, BMI 31.9 6. Hypertensive heart disease with diastolic congestive heart failure 7. Hyperlipidemia 8. Gastroesophageal reflux disease 9. Benign prostatic hypertrophy 10. Multiple myeloma 11. Neuropathy 12. Orthostatic hypotension OPERATION: 1. Diagnostic laparoscopy with lysis of adhesions 2. Removal of peritoneal dialysis catheter ESTIMATED BLOOD LOSS: 5 mL. SPECIMENS REMOVED: Peritoneal dialysis catheter COMPLICATIONS: None. OPERATIVE FINDINGS: 1. Omentum to abdominal wall adhesion and peritoneal dialysis catheter site, right lower quadrant 2. Peritoneal dialysis catheter adherent to pelvis, lysed due to Ethibond suture INDICATIONS: The patient is a 77-year-old male dialysis dependent using peritoneal dialysis catheter developed spontaneous bacterial peritonitis. Per request of director for [employer], dialysis catheter to be removed. Surgical intervention with diagnostic laparoscopy, lysis of adhesions were described. Informed consent was obtained. Robotic assisted laparoscopic approach was described. Benefits and risks of the procedure including but not limited to bleeding, infection, injury to the small bowel was described. Informed consent was obtained. DESCRIPTION OF PROCEDURE: Earlier, patient underwent dialysis today. Patient was brought to the operating room, placed in supine position. After general induction, the abdomen had been prepped and draped in standard sterile fashion. The robotic da Cortez XI system was primed. After a timeout protocol was performed, the patient had been prepped and draped in standard sterile fashion. A 5 mm 0 degrees laparoscopic trocar entry was performed along the left upper quadrant. The abdomen was insufflated to 15 mmHg pressure which was tolerated well. Diagnostic laparoscopy was performed. Omental adhesions to abdominal wall at the peritoneal dialysis catheter site was found along the right lower quadrant. The peritoneal dialysis catheter was tacked to the pubis using Ethibond suture identified. An additional 5 mm trocar was placed along the left lateral abdominal wall. Using a disposable scissor, the adhesion suture was lysed with release of the peritoneal dialysis catheter site. Additional imaging was obtained. Next, attention was brought to the abdominal wall where the peritoneal dialysis sheath was tethered to the fascia. A transverse incision 2 cm was made over the fascial insertion site and dissected using Bovie cautery with release of the fascial insertion. Attention was brought to the skin insertion site found 8 cm lateral along the right lower quadrant. An elliptical incision 2 cm made with circumferential dissection of the catheter sheaths in the subcutaneous tissue. The catheter was cut at the fascial site and removed in 2 pieces to avoid contamination of the exposed skin tubing. Next, all pneumoperitoneum was released. The skin incisions were reapproximated using 4-0 Monocryl septic fashion. Of the suture peritoneal dialysis catheter site, deep 0 Vicryl of the subtenon's tissue was placed. Skin was cleansed using dilute hydrogen peroxide. Running suture of 4-0 Monocryl was placed. At the end of the procedure, the needle, sponge and instrument count was verified correct. The skin was cleansed with hydrogen peroxide. Exofin tape including adhesive was placed along the length of the incision.
[2023-05-25] MEDS: MAGNEBIND PO SCH (10:33)
[2023-05-25] MEDS: POTASSIUM CHLORIDE ER 20 MEQ TAB.ER PO SCH ×2 (10:49→20:54)
[2023-05-25] MEDS: MAGNESIUM OXIDE 400 MG TAB PO SCH (10:49)
[2023-05-25] MEDS: FUROSEMIDE 80 MG TAB PO SCH ×2 (10:49→16:21)
[2023-05-25] MEDS: valACYclovir HCL 500 MG TAB PO SCH (10:49)
[2023-05-25] MEDS: METOPROLOL TARTRATE 50 MG TAB PO SCH (10:49)
[2023-05-25] MEDS: FOLIC ACID-VIT B COMPLEX-VIT C 1 CAP PO SCH (10:49)
[2023-05-25] MEDS: MIDODRINE 5 MG TAB PO SCH ×3 (10:50→17:58)
[2023-05-25] MEDS: PREGABALIN 75 MG CAP PO SCH ×2 (10:50→20:54)
--- NOTE | 2023-05-25 11:24 | P.PN ---
Subjective Patient is seen for follow-up of end-stage renal disease. Status post removal of PD catheter on 05/24/2023. Patient is seen on hemodialysis. Catheter is not working well with very poor flows. This was discussed with vascular surgery and the dialysis catheter will be exchanged hopefully today. Objective - Vital Signs Vital signs: Vital Signs Temp 98.2 F 05/25/23 07:17 Pulse 80 05/25/23 07:17 Resp 16 05/25/23 07:17 BP 146/81 05/25/23 07:17 Pulse Ox 95 05/25/23 07:17 FiO2 Intake & Output 05/24/23 05/25/23 05/25/23 18:59 06:59 18:59 Intake Total 400 660 Output Total 2500 5 Balance -2100 655 Weight 95.1 kg Intake: IV 70 Oral 590 Hemodialysis 400 Output: Urine 100 Hemodialysis 2400 Estimated Blood Loss 5 Other: Voiding Method Toilet Toilet # Voids 1 - Exam patient is awake, comfortable, no acute distress alert oriented 3 Examination of the heart S1 and S2 Examination of the lungs bilateral breath sounds are heard Abdomen is soft distended nontender Examination of lower extremities shows edema 2+ bilaterally 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 End-stage renal disease maintained on peritoneal dialysis. Switched to hemodialysis now post discontinuation of PD catheter 2. PD peritonitis with recurrent infection in the last 6 weeks. Fluid culture grew staph epidermidis as outpatient. PD catheter removed on 05/24/2023 3. Volume overload, improving 4. Hypervolemic hyponatremia, improved 5. 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 6. Anemia of chronic disease as well as secondary to underlying myeloma which is quite stable. Currently maintained on Revlimid. Plan: Vascular surgery to replace femoral dialysis catheter with a longer catheter prior to discharge as current catheter has very poor flows.
[2023-05-25] MEDS ORDERED: LENALIDOMIDE 2.5 MG PO ONE (12:00)
--- NOTE | 2023-05-25 12:30 | P.PN ---
Subjective Progress Note Date: 05/25/23 Principal diagnosis: Reason for follow-up his PD catheter associated peritonitis Patient is a 77-year-old male with a past medical history significant for hypertension hyperlipidemia osteoarthritis end-stage renal disease on this patient has been on peritoneal dialysis for many years recently did have issues with the PD catheter associated peritonitis and has been treated in the outpatient setting with vancomycin and dialysis fluid subsequently did have problem with no exchanges for the patient has been admitted to the hospital patient did have a right groin hemodialysis catheter placement. Patient is status post diagnostic laparoscopy and lysis of adhesion completed on 05/24/2023 On today's evaluation that is 05/25/2023, the patient denies any fever or any ch ills e, the patient is breathing comfortably on room air, the patient denies any chest pain shortness of breath or cough, patient has been complaining of more abdominal pain for surgery did have some nausea but no vomiting no bowel movement and did have follow-up with the hemodialysis this morning Patient did have white count of 3.1, creatinine 7.83 as of 05/24/2023, no culture this admission Objective - Vital Signs Vital signs: Vital Signs Temp 98.2 F 05/25/23 07:17 Pulse 80 05/25/23 07:17 Resp 16 05/25/23 07:17 BP 146/81 05/25/23 07:17 Pulse Ox 95 05/25/23 07:17 FiO2 Intake & Output 05/24/23 05/25/23 05/25/23 18:59 06:59 18:59 Intake Total 400 660 Output Total 2500 5 Balance -2100 655 Weight 95.1 kg Intake: IV 70 Oral 590 Hemodialysis 400 Output: Urine 100 Hemodialysis 2400 Estimated Blood Loss 5 Other: Voiding Method Toilet Toilet # Voids 1 - Exam GENERAL DESCRIPTION: An elderly male lying in bed in no distress RESPIRATORY SYSTEM: Unlabored breathing , decreased breath sounds at bases HEART: S1 S2 regular rate and rhythm , ABDOMEN: Soft , no tenderness EXTREMITIES: No edema feet - Labs CBC & Chem 7: 05/24/23 06:02 05/24/23 06:02 Labs: Abnormal Lab Results - Last 24 Hours (Table) 05/24/23 Range/Units 22:16 POC Glucose (mg/dL) 113 H (70-110) mg/dL Assessment and Plan (1) Peritonitis Current Visit: Yes Status: Acute Code(s): K65.9 - PERITONITIS, UNSPECIFIED SNOMED Code(s): 51024741 Plan: 1patient presented to hospital with nonfunctioning of his PD catheter and apparently the patient did have problem with the infection in the outpatient setting that has been treated with the vancomycin and the peritoneal dialysis fluid as the patient did not have any exchange during this admission no fluid has been sent, patient did grew Staph epidermidis in the peritoneal fluid as an outpatient 2patient currently covered with vancomycin pharmacy to dose target trough 15 which should be continued and monitor clinical course closely at the bedside questions answered Dictation was produced using [employer] dictation software. please excuse any grammatical, word or spelling errors. Time with Patient: Less than 30
[2023-05-25] MEDS ORDERED: SODIUM CHLORIDE 0.9% 250 ML IV ONE (13:00)
[2023-05-25] MEDS ORDERED: fentaNYL (PF) 50 MCG/ML 2 ML AMP IVP ONE (13:10)
[2023-05-25] MEDS ORDERED: LIDOCAINE 1% INJ 10MG/ML (20 ML MDV) SQ ONE (13:10)
[2023-05-25] MEDS ORDERED: IOPAMIDOL-370 100ML BTL INJ ONE (13:22)
[2023-05-25] MEDS: LACTATED RINGERS 1,000 ML IV SCH (13:47)
--- NOTE | 2023-05-25 13:50 | OP ---
OPERATIVE REPORT DATE OF SERVICE : PREOPERATIVE DIAGNOSES: Acute chronic renal failure, infected peritoneal dialysis catheter, post removal. PROCEDURE PERFORMED: Placement of a 28 cm dialysis catheter exchange for previous dialysis catheter from the right femoral approach. DESCRIPTION OF PROCEDURE: The patient was brought to the propagator laborer. 2 g Kefzol was given. The right groin was then prepped and draped in usual sterile manner, 1% lidocaine was infiltrated at the exit site of the catheter and a guidewire was passed, which was parked in the inferior vena cava. Then, we placed the sheath on the top of the guidewire. The previous catheter was removed, and through the sheath, we introduced 28 cm straight dialysis catheter, flushed with heparin saline. Good flow noted. Secured with 3-0 nylon. Dressing applied. The patient tolerated the procedure well. MMODL / IJN: [id number] /
[2023-05-25] MEDS ORDERED: VANCOMYCIN 1,500 MG in SODIUM CHLORIDE 0.9% 500 ML 500 ML IVPB ONE (14:00)
--- NOTE | 2023-05-25 14:02 | P.PN ---
Subjective Progress Note Date: 05/25/23 Dean Earl, is a 77-year-old who presented to [facility] emergency room with a chief complaint of mal-functioning peritoneal dialysis catheter He was evaluated in the emergency room, nephrology were contacted, patient will need to be admitted for replacement of peritoneal dialysis catheter, and short- term hemodialysis replacement. He was evaluated in the emergency room vital examination on presentation revealed a temperature of 97.4 pulse 95 respirations 16 blood pressure 121/68 pulse ox 100% on room air Laboratory data reveals a white blood count of 5.5 hemoglobin 9.0 platelet count 123 BUN 67 creatinine 7.8 Patient was admitted to medical floor for further evaluation and treatment Past medical history is significant for end-stage renal disease maintained on peritoneal dialysis since 2017, multiple myeloma, GERD, hypertension, hyperlipidemia, osteoarthritis, neuropathy and orthostatic hypotension On review of systems denies any chest pain or shortness of breath. Patient denies nausea vomiting or diarrhea. Patient denies any urinary burning or frequency On 05/22/2023 patient is alert and oriented 3. Awaiting further recommendations from nephrology for possible initiation of hemodialysis. Surgical services also consulted to evaluate peritoneal dialysis site. Current vital signs temp 97.7, heart rate 64, respiratory rate 17, blood pressure 05/17/1957 pulse ox 90% on room air On 05/23/2023 patient was seen and examined on the medical floor he is alert and oriented 3 in no apparent distress, hemodialysis catheter was placed and patient was started on hemodialysis, vital exam reveals a temperature of 98.2 pulse 98 respiration 22 blood pressure 123/72 pulse ox 98% on room air white blood count 4.62 hemoglobin 7.5 platelet count 112 BUN 71 creatinine 9.36 patient is maintained on IV vancomycin for peritonitis infectious disease consultation requested. 05/24/2023 patient alert and oriented 3 currently getting hemodialysis. Patient remains on IV vancomycin. Hemoglobin 8.0, creatinine 7.83 bun 45. Current vital signs temp 98.3, heart rate 93, respiratory rate 17, blood pressure 118/71 with pulse ox 97% On 05/25/2023 patient was seen and examined on the medical floor, he is alert and oriented 3 in no apparent distress, there is no fever or chills no headache or dizziness no chest pain no shortness of breath, he has occasional cough no nausea or vomiting, he is still complaining of abdominal pain, no diarrhea and no urinary symptoms. Objective - Vital Signs Vital signs: Vital Signs Temp 97.9 F 05/25/23 13:42 Pulse 81 05/25/23 13:42 Resp 18 05/25/23 13:42 BP 128/72 05/25/23 13:42 Pulse Ox 94 L 05/25/23 13:42 FiO2 Intake & Output 05/24/23 05/25/23 05/25/23 18:59 06:59 18:59 Intake Total 400 660 600 Output Total 2500 5 1508 Balance -2100 655 -908 Weight 95.1 kg Intake: IV 70 100 Oral 590 Hemodialysis 400 500 Output: Urine 100 Hemodialysis 2400 1508 Estimated Blood Loss 5 Other: Voiding Method Toilet Toilet # Voids 1 - Exam In general patient is alert and oriented x 3 in no distress HEENT head normocephalic and atraumatic Neck is supple no JVD no goiter no lymphadenopathy no carotid bruit Chest examination is clear to auscultation no crackles no wheezing Cardiac exam reveals regular heart sounds S1 and S2 no gallops no murmurs Abdomen is soft nontender no organomegaly with normal bowel sounds Extremity exam reveals no edema no cyanosis or clubbing Neurological examination reveals no gross focal deficits - Labs CBC & Chem 7: 05/24/23 06:02 05/24/23 06:02 Labs: Abnormal Lab Results - Last 24 Hours (Table) 05/24/23 Range/Units 22:16 POC Glucose (mg/dL) 113 H (70-110) mg/dL Assessment and Plan Plan: Poorly functioning peritoneal dialysis catheter Underlying history of end-stage renal disease Underlying history of hypertension Underlying history of hyperlipidemia Underlying history of gout Underlying history of multiple myeloma Underlying history of anemia At this time patient is admitted to medical floor Nephrology consultation and general surgery consultation requested Patient initiated on hemodialysis Patient maintained on IV vancomycin Home medications reviewed and reordered Will follow closely
--- NOTE | 2023-05-25 14:31 | IR ---
PICC Insertion: EXAMINATION TYPE: IR cvc insert central tunneled Intraoperative/procedural fluoroscopic services were provided. CLINICAL INDICATION:Male, 77 years old with history of Dialysis, 0.9m/18.6154DAP, Rt gr 14.5F x 28cm Dialysis chad; , [facility] Total fluoroscopy time is 0.9 min. DAP: 18.6154 Gycm2 Please see the operative/procedural note for further details.
--- NOTE | 2023-05-25 15:10 | P.PN ---
Subjective Progress Note Date: 05/25/23 NAEON. No N/V Minimal pain from port sites. No F/C. No SOB or CP. Objective - Vital Signs Vital signs: Vital Signs Temp 97.9 F 05/25/23 13:42 Pulse 82 05/25/23 13:55 Resp 18 05/25/23 13:55 BP 112/68 05/25/23 13:55 Pulse Ox 97 05/25/23 13:55 FiO2 Intake & Output 05/24/23 05/25/23 05/25/23 18:59 06:59 18:59 Intake Total 400 660 600 Output Total 2500 5 1508 Balance -2100 655 -908 Weight 95.1 kg Intake: IV 70 100 Oral 590 Hemodialysis 400 500 Output: Urine 100 Hemodialysis 2400 1508 Estimated Blood Loss 5 Other: Voiding Method Toilet Toilet # Voids 1 - Exam Gen: AxO, NAD Pulm: non-labored respirations Abd: soft, minimally-tender around incisions, non-distended. No guarding/rebound/rigidity Incisions: C/D/I, no erythema or drainage seen. Extrem: no edema seen; femoral permcath C/D/I - Labs CBC & Chem 7: 05/24/23 06:02 05/24/23 06:02 Labs: Abnormal Lab Results - Last 24 Hours (Table) 05/24/23 Range/Units 22:16 POC Glucose (mg/dL) 113 H (70-110) mg/dL Assessment and Plan Assessment: Patient is a 77 year old male who is s/p laparoscopic PD cath removal Plan: -Diet as tolerated -HD per nephro -PRN pain control -No further surgical intervention Gagan Faust MD General Surgery
[2023-05-25] MEDS: FINASTERIDE 5 MG TAB PO SCH (20:54)
[2023-05-25] MEDS: ATORVASTATIN 10 MG TAB PO SCH (20:54)
[2023-05-25] MEDS: TAMSULOSIN 0.4 MG CAP.ER.24H PO SCH (20:54)
[2023-05-25] MEDS: PANTOPRAZOLE 40 MG TABLET PO SCH (20:54)
[2023-05-26] MEDS: CALCIUM CARBONATE 500 MG CHEWABLE PO SCH ×8 (05:16→23:49)
[2023-05-26 08:08] LABS: ALT 8 U/L (4-49); AST 27 U/L (17-59); African American GFR (CKD) 12 (>60 ml/min/1.73 sqM); Albumin 2.3 g/dL (3.5-5.0); Albumin/Globulin Ratio 1.3; Alkaline Phosphatase 55 U/L (38-126); Anion Gap 11 mmol/L; Blood Urea Nitrogen 21 mg/dL (9-20); Calcium 7.2 mg/dL (8.4-10.2); Carbon Dioxide 23 mmol/L (22-30); Chloride 95 mmol/L (98-107); Globulin 1.8 g/dL; Glucose 88 mg/dL (74-99); Non-African American GFR(CKD) 11 (>60 ml/min/1.73 sqM); Potassium 3.9 mmol/L (3.5-5.1); Sodium 129 mmol/L (137-145); Total Bilirubin 0.5 mg/dL (0.2-1.3); Total Protein 4.1 g/dL (6.3-8.2)
[2023-05-26] MEDS: FUROSEMIDE 80 MG TAB PO SCH ×2 (08:40→15:59)
[2023-05-26] MEDS: MIDODRINE 5 MG TAB PO SCH ×3 (08:40→17:57)
[2023-05-26] MEDS: PREGABALIN 75 MG CAP PO SCH ×2 (08:40→20:05)
[2023-05-26] MEDS: METOPROLOL TARTRATE 50 MG TAB PO SCH (08:40)
[2023-05-26] MEDS: MAGNESIUM OXIDE 400 MG TAB PO SCH (08:40)
[2023-05-26] MEDS: POTASSIUM CHLORIDE ER 20 MEQ TAB.ER PO SCH ×2 (08:40→20:05)
[2023-05-26] MEDS: valACYclovir HCL 500 MG TAB PO SCH (08:41)
[2023-05-26] MEDS: FOLIC ACID-VIT B COMPLEX-VIT C 1 CAP PO SCH (08:41)
[2023-05-26] MEDS: MAGNEBIND PO SCH (08:41)
--- NOTE | 2023-05-26 10:05 | P.PN ---
Subjective Progress Note Date: 05/26/23 Dean Earl, is a 77-year-old who presented to [facility] emergency room with a chief complaint of mal-functioning peritoneal dialysis catheter He was evaluated in the emergency room, nephrology were contacted, patient will need to be admitted for replacement of peritoneal dialysis catheter, and short- term hemodialysis replacement. He was evaluated in the emergency room vital examination on presentation revealed a temperature of 97.4 pulse 95 respirations 16 blood pressure 121/68 pulse ox 100% on room air Laboratory data reveals a white blood count of 5.5 hemoglobin 9.0 platelet count 123 BUN 67 creatinine 7.8 Patient was admitted to medical floor for further evaluation and treatment Past medical history is significant for end-stage renal disease maintained on peritoneal dialysis since 2017, multiple myeloma, GERD, hypertension, hyperlipidemia, osteoarthritis, neuropathy and orthostatic hypotension On review of systems denies any chest pain or shortness of breath. Patient denies nausea vomiting or diarrhea. Patient denies any urinary burning or frequency On 05/22/2023 patient is alert and oriented 3. Awaiting further recommendations from nephrology for possible initiation of hemodialysis. Surgical services also consulted to evaluate peritoneal dialysis site. Current vital signs temp 97.7, heart rate 64, respiratory rate 17, blood pressure 05/17/1957 pulse ox 90% on room air On 05/23/2023 patient was seen and examined on the medical floor he is alert and oriented 3 in no apparent distress, hemodialysis catheter was placed and patient was started on hemodialysis, vital exam reveals a temperature of 98.2 pulse 98 respiration 22 blood pressure 123/72 pulse ox 98% on room air white blood count 4.62 hemoglobin 7.5 platelet count 112 BUN 71 creatinine 9.36 patient is maintained on IV vancomycin for peritonitis infectious disease consultation requested. 05/24/2023 patient alert and oriented 3 currently getting hemodialysis. Patient remains on IV vancomycin. Hemoglobin 8.0, creatinine 7.83 bun 45. Current vital signs temp 98.3, heart rate 93, respiratory rate 17, blood pressure 118/71 with pulse ox 97% On 05/25/2023 patient was seen and examined on the medical floor, he is alert and oriented 3 in no apparent distress, there is no fever or chills no headache or dizziness no chest pain no shortness of breath, he has occasional cough no nausea or vomiting, he is still complaining of abdominal pain, no diarrhea and no urinary symptoms. On 05/26/2023 patient's alert and oriented 3. Patient currently resting comfortably in bed. Patient underwent dialysis catheter exchange Dr. Reyes yesterday. Awaiting hemodialysis recommendations per nephrology services. Patient remains on IV vancomycin current vital signs temp 98.1, heart rate 82, respiratory rate 16, blood pressure 140/70 pulse ox 97% on room air Objective - Vital Signs Vital signs: Vital Signs Temp 98.1 F 05/26/23 07:44 Pulse 82 05/26/23 07:44 Resp 16 05/26/23 07:44 BP 148/74 05/26/23 07:44 Pulse Ox 97 05/26/23 07:44 FiO2 Intake & Output 05/25/23 05/26/23 05/26/23 18:59 06:59 18:59 Intake Total 600 1710 Output Total 1508 Balance -908 1710 Weight 144 kg Intake: IV 100 Oral 1710 Hemodialysis 500 Output: Hemodialysis 1508 Other: Voiding Method Toilet Toilet Toilet # Voids 2 - Exam In general patient is alert and oriented x 3 in no distress HEENT head normocephalic and atraumatic Neck is supple no JVD no goiter no lymphadenopathy no carotid bruit Chest examination is clear to auscultation no crackles no wheezing Cardiac exam reveals regular heart sounds S1 and S2 no gallops no murmurs Abdomen is soft nontender no organomegaly with normal bowel sounds Extremity exam reveals no edema no cyanosis or clubbing Neurological examination reveals no gross focal deficits - Labs CBC & Chem 7: 05/24/23 06:02 05/26/23 07:08 Labs: Abnormal Lab Results - Last 24 Hours (Table) 05/26/23 Range/Units 07:08 Sodium 129 L (137-145) mmol/L Chloride 95 L (98-107) mmol/L BUN 21 H (9-20) mg/dL Creatinine 4.95 H (0.66-1.25) mg/dL Calcium 7.2 L (8.4-10.2) mg/dL Total Protein 4.1 L (6.3-8.2) g/dL Albumin 2.3 L (3.5-5.0) g/dL Microbiology - Last 24 Hours (Table) 05/24/23 20:32 Gram Stain - Preliminary Picc Line Assessment and Plan Plan: Poorly functioning peritoneal dialysis catheter Underlying history of end-stage renal disease Underlying history of hypertension Underlying history of hyperlipidemia Underlying history of gout Underlying history of multiple myeloma Underlying history of anemia At this time patient is admitted to medical floor Nephrology consultation and general surgery consultation requested Patient initiated on hemodialysis Patient maintained on IV vancomycin Home medications reviewed and reordered Will follow closely
[2023-05-26 10:13] LABS: Basophils # (A) 0.03 X 10*3/uL (0.00-0.10); Basophils % (A) 0.7 %; Eosinophils # (A) 0.15 X 10*3/uL (0.04-0.35); Eosinophils % (A) 3.3 %; HCT 21.3 % (39.6-50.0); HGB 7.2 g/dL (13.0-17.0); Lymphocytes # (A) 0.38 X 10*3/uL (0.90-5.00); Lymphocytes % (A) 8.3 %; MCH 39.6 pg (27.0-32.0); MCHC 33.8 g/dL (32.0-37.0); Mean Platelet Volume 10.9 FL (9.5-12.2); Monocytes # (A) 0.76 X 10*3/uL (0.20-1.00); Monocytes % (A) 16.6 %; NRBC Per 100 WBC 0 X 10*3/uL (0.00-0.01); Neutrophils # (A) 3.23 X 10*3/uL (1.80-7.70); Neutrophils % (A) 70.2 %; Platelet Count 99 X 10*3/uL (140-440); RBC 1.82 X 10*6/uL (4.40-5.60); RDW 15.8 % (11.5-14.5); WBC 4.59 X 10*3/uL (4.50-10.00)
--- NOTE | 2023-05-26 11:51 | P.PN ---
Subjective Patient is seen for follow-up of end-stage renal disease. Status post removal of PD catheter on 05/24/2023 for repeated episodes of peritonitis and malfunctioning PD catheter. Hemodialysis catheter was exchanged yesterday for a longer catheter as it had poor flows yesterday. is present at bedside and is concerned about ambulation. There is also concern regarding possible difficulty in swallowing. Objective - Vital Signs Vital signs: Vital Signs Temp 98.1 F 05/26/23 07:44 Pulse 82 05/26/23 07:44 Resp 16 05/26/23 07:44 BP 148/74 05/26/23 07:44 Pulse Ox 97 05/26/23 07:44 FiO2 Intake & Output 05/25/23 05/26/23 05/26/23 18:59 06:59 18:59 Intake Total 600 1710 Output Total 1508 Balance -908 1710 Weight 144 kg Intake: IV 100 Oral 1710 Hemodialysis 500 Output: Hemodialysis 1508 Other: Voiding Method Toilet Toilet Toilet # Voids 2 - Exam patient is awake, comfortable, no acute distress alert oriented 3 Examination of the heart S1 and S2 Examination of the lungs bilateral breath sounds are heard Abdomen is soft distended nontender Examination of lower extremities shows edema 2+ bilaterally [employer] exam grossly intact - Labs CBC & Chem 7: 05/26/23 07:08 05/26/23 07:08 Labs: Abnormal Lab Results - Last 24 Hours (Table) 05/26/23 05/26/23 Range/Units 07:08 07:08 RBC 1.82 L (4.40-5.60) X 10*6/uL Hgb 7.2 L (13.0-17.0) g/dL Hct 21.3 L (39.6-50.0) % MCV 117.0 H (80.0-97.0) FL MCH 39.6 H (27.0-32.0) pg RDW 15.8 H (11.5-14.5) % Plt Count 99 L (140-440) X 10*3/uL Lymphocytes # 0.38 L (0.90-5.00) X 10*3/uL Sodium 129 L (137-145) mmol/L Chloride 95 L (98-107) mmol/L BUN 21 H (9-20) mg/dL Creatinine 4.95 H (0.66-1.25) mg/dL Calcium 7.2 L (8.4-10.2) mg/dL Total Protein 4.1 L (6.3-8.2) g/dL Albumin 2.3 L (3.5-5.0) g/dL Microbiology - Last 24 Hours (Table) 05/24/23 20:32 Gram Stain - Preliminary Picc Line Tissue Culture - Preliminary Assessment and Plan Assessment: 1. End-stage renal disease maintained on peritoneal dialysis. Switched to hemodialysis now post discontinuation of PD catheter 2. PD peritonitis with recurrent infection in the last 6 weeks. Fluid culture grew staph epidermidis as outpatient. PD catheter removed on 05/24/2023 3. Volume overload, improving 4. Hypervolemic hyponatremia, improved 5. 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 6. Anemia of chronic disease as well as secondary to underlying myeloma which is quite stable. Currently maintained on Revlimid. 7. Generalized debility 8. Difficulty in swallowing Plan: Hemodialysis in a.m. as an extra treatment. Patient is scheduled for hemodialysis on a Saturday schedule as outpatient. PT OT evaluation Consider workup for difficulty in swallowing.
[2023-05-26] MEDS: LACTATED RINGERS 1,000 ML IV SCH (13:59)
--- NOTE | 2023-05-26 14:49 | P.PN ---
Subjective Progress Note Date: 05/26/23 Reports appropriated soreness from PD catheter site removal at [facility] otherwise stable. He had revision of permacath placement yesterday. Tolerating diet. Antibiotic management per ID Objective - Vital Signs Vital signs: Vital Signs Temp 97.6 F 05/26/23 13:08 Pulse 96 05/26/23 13:08 Resp 16 05/26/23 13:08 BP 156/76 05/26/23 13:08 Pulse Ox 96 05/26/23 13:08 FiO2 Intake & Output 05/25/23 05/26/23 05/26/23 18:59 06:59 18:59 Intake Total 600 1710 Output Total 1508 Balance -908 1710 Weight 144 kg Intake: IV 100 Oral 1710 Hemodialysis 500 Output: Hemodialysis 1508 Other: Voiding Method Toilet Toilet Toilet # Voids 2 - Labs CBC & Chem 7: 05/26/23 07:08 05/26/23 07:08 Labs: Abnormal Lab Results - Last 24 Hours (Table) 05/26/23 05/26/23 Range/Units 07:08 07:08 RBC 1.82 L (4.40-5.60) X 10*6/uL Hgb 7.2 L (13.0-17.0) g/dL Hct 21.3 L (39.6-50.0) % MCV 117.0 H (80.0-97.0) FL MCH 39.6 H (27.0-32.0) pg RDW 15.8 H (11.5-14.5) % Plt Count 99 L (140-440) X 10*3/uL Lymphocytes # 0.38 L (0.90-5.00) X 10*3/uL Sodium 129 L (137-145) mmol/L Chloride 95 L (98-107) mmol/L BUN 21 H (9-20) mg/dL Creatinine 4.95 H (0.66-1.25) mg/dL Calcium 7.2 L (8.4-10.2) mg/dL Total Protein 4.1 L (6.3-8.2) g/dL Albumin 2.3 L (3.5-5.0) g/dL Microbiology - Last 24 Hours (Table) 05/24/23 20:32 Gram Stain - Preliminary Picc Line Tissue Culture - Preliminary
[2023-05-26] MEDS: FINASTERIDE 5 MG TAB PO SCH (20:05)
[2023-05-26] MEDS: TAMSULOSIN 0.4 MG CAP.ER.24H PO SCH (20:05)
[2023-05-26] MEDS: PANTOPRAZOLE 40 MG TABLET PO SCH (20:05)
[2023-05-26] MEDS: BENZONATATE 100 MG CAP PO PRN (20:05)
[2023-05-26] MEDS: ATORVASTATIN 10 MG TAB PO SCH (20:05)
[2023-05-27] MEDS: CALCIUM CARBONATE 500 MG CHEWABLE PO SCH ×5 (02:58→14:39)
--- NOTE | 2023-05-27 08:10 | P.PN ---
Subjective Progress Note Date: 05/26/23 Principal diagnosis: Reason for follow-up his PD catheter associated peritonitis Patient is a 77-year-old male with a past medical history significant for hypertension hyperlipidemia osteoarthritis end-stage renal disease on this patient has been on peritoneal dialysis for many years recently did have issues with the PD catheter associated peritonitis and has been treated in the outpatient setting with vancomycin and dialysis fluid subsequently did have problem with no exchanges for the patient has been admitted to the hospital patient did have a right groin hemodialysis catheter placement. Patient is status post diagnostic laparoscopy and lysis of adhesion completed on 05/24/2023 On today's evaluation that is 05/26/2023, the patient remains to be afebrile, the patient is breathing comfortably on room air and the patient denies any shortness of breath, the patient denies chest pain or any cough , patient denies any nausea/vomiting and abdominal pain has slightly decreased in intensity, no diarrhea Patient did have white count of 4.59, creatinine 4.95, no culture this admission Objective - Vital Signs Vital signs: Vital Signs Temp 97.6 F 05/26/23 13:08 Pulse 96 05/26/23 13:08 Resp 16 05/26/23 13:08 BP 156/76 05/26/23 13:08 Pulse Ox 96 05/26/23 13:08 FiO2 Intake & Output 05/25/23 05/26/23 05/26/23 18:59 06:59 18:59 Intake Total 600 1710 Output Total 1508 Balance -908 1710 Weight 144 kg Intake: IV 100 Oral 1710 Hemodialysis 500 Output: Hemodialysis 1508 Other: Voiding Method Toilet Toilet Toilet # Voids 2 - Exam GENERAL DESCRIPTION: An elderly male lying in bed in no distress RESPIRATORY SYSTEM: Unlabored breathing , decreased breath sounds at bases HEART: S1 S2 regular rate and rhythm , ABDOMEN: Soft , no tenderness EXTREMITIES: No edema feet - Labs CBC & Chem 7: 05/26/23 07:08 05/26/23 07:08 Labs: Abnormal Lab Results - Last 24 Hours (Table) 05/26/23 05/26/23 Range/Units 07:08 07:08 RBC 1.82 L (4.40-5.60) X 10*6/uL Hgb 7.2 L (13.0-17.0) g/dL Hct 21.3 L (39.6-50.0) % MCV 117.0 H (80.0-97.0) FL MCH 39.6 H (27.0-32.0) pg RDW 15.8 H (11.5-14.5) % Plt Count 99 L (140-440) X 10*3/uL Lymphocytes # 0.38 L (0.90-5.00) X 10*3/uL Sodium 129 L (137-145) mmol/L Chloride 95 L (98-107) mmol/L BUN 21 H (9-20) mg/dL Creatinine 4.95 H (0.66-1.25) mg/dL Calcium 7.2 L (8.4-10.2) mg/dL Total Protein 4.1 L (6.3-8.2) g/dL Albumin 2.3 L (3.5-5.0) g/dL Microbiology - Last 24 Hours (Table) 05/24/23 20:32 Gram Stain - Preliminary Picc Line Tissue Culture - Preliminary Assessment and Plan (1) Peritonitis Current Visit: Yes Status: Acute Code(s): K65.9 - PERITONITIS, UNSPECIFIED SNOMED Code(s): 77591381 Plan: 1patient presented to hospital with nonfunctioning of his PD catheter and apparently the patient did have problem with the infection in the outpatient setting that has been treated with the vancomycin and the peritoneal dialysis fluid as the patient did not have any exchange during this admission no fluid has been sent, patient did grew Staph epidermidis in the peritoneal fluid as an outpatient 2patient is afebrile, white count was normal, PD catheter tip culture pending, patient to continue with vancomycin pharmacy to dose target trough 15 Dictation was produced using [employer] dictation software. please excuse any grammatical, word or spelling errors. Time with Patient: Less than 30
[2023-05-27 08:19] LABS: ALT 6 U/L (4-49); AST 27 U/L (17-59); African American GFR (CKD) 8 (>60 ml/min/1.73 sqM); Albumin 2.5 g/dL (3.5-5.0); Albumin/Globulin Ratio 1.4; Alkaline Phosphatase 62 U/L (38-126); Anion Gap 8 mmol/L; Blood Urea Nitrogen 26 mg/dL (9-20); Calcium 7.3 mg/dL (8.4-10.2); Carbon Dioxide 22 mmol/L (22-30); Chloride 98 mmol/L (98-107); Globulin 1.8 g/dL; Glucose 102 mg/dL (74-99); Non-African American GFR(CKD) 7 (>60 ml/min/1.73 sqM); Sodium 128 mmol/L (137-145); Total Bilirubin 0.5 mg/dL (0.2-1.3); Total Protein 4.3 g/dL (6.3-8.2)
[2023-05-27 08:20] LABS: Potassium 4.1 mmol/L (3.5-5.1)
[2023-05-27] MEDS: METOPROLOL TARTRATE 50 MG TAB PO SCH (08:42)
[2023-05-27] MEDS: POTASSIUM CHLORIDE ER 20 MEQ TAB.ER PO SCH (08:42)
[2023-05-27] MEDS: PREGABALIN 75 MG CAP PO SCH (08:42)
[2023-05-27] MEDS: BENZONATATE 100 MG CAP PO PRN (08:42)
[2023-05-27] MEDS: MAGNESIUM OXIDE 400 MG TAB PO SCH (08:42)
[2023-05-27] MEDS: FUROSEMIDE 80 MG TAB PO SCH (08:42)
[2023-05-27] MEDS: MAGNEBIND PO SCH (08:43)
[2023-05-27] MEDS: MIDODRINE 5 MG TAB PO SCH ×2 (08:43→12:35)
[2023-05-27] MEDS: FOLIC ACID-VIT B COMPLEX-VIT C 1 CAP PO SCH (08:43)
[2023-05-27] MEDS: SULFAMETHOX-TMP 800-160MG 1 EACH TAB PO SCH (08:43)
[2023-05-27] MEDS: valACYclovir HCL 500 MG TAB PO SCH (08:43)
[2023-05-27 11:08] LABS: Basophils # (A) 0.03 X 10*3/uL (0.00-0.10); Basophils % (A) 0.6 %; Eosinophils # (A) 0.27 X 10*3/uL (0.04-0.35); Eosinophils % (A) 5.6 %; HGB 7.5 g/dL (13.0-17.0); Lymphocytes # (A) 0.31 X 10*3/uL (0.90-5.00); Lymphocytes % (A) 6.4 %; MCH 39.3 pg (27.0-32.0); MCHC 34.1 g/dL (32.0-37.0); MCV 115.2 FL (80.0-97.0); Mean Platelet Volume 11.4 FL (9.5-12.2); Monocytes % (A) 16.6 %; NRBC Per 100 WBC 0 X 10*3/uL (0.00-0.01); Neutrophils # (A) 3.34 X 10*3/uL (1.80-7.70); Neutrophils % (A) 69.1 %; Platelet Count 100 X 10*3/uL (140-440); RBC 1.91 X 10*6/uL (4.40-5.60); RDW 15.7 % (11.5-14.5); WBC 4.83 X 10*3/uL (4.50-10.00)
--- NOTE | 2023-05-27 11:27 | P.PN ---
Subjective Patient is seen in follow-up for end-stage renal disease. PD catheter removed 05/24/2023 due to recurrent peritonitis and malfunctioning PD catheter. Now has a tunneled femoral catheter and is tolerating dialysis well. Vital signs are stable. General: NAD. HEENT: Head exam is unremarkable. LUNGS: No audible rhonchi or wheezes. HEART: Rate and Rhythm are regular. ABDOMEN: Non-tender. EXTREMITITES: Trace edema. Objective - Vital Signs Vital signs: Vital Signs Temp 97.5 F L 05/27/23 08:09 Pulse 86 05/27/23 08:09 Resp 16 05/27/23 08:09 BP 158/80 05/27/23 08:09 Pulse Ox 98 05/27/23 08:09 FiO2 Intake & Output 05/26/23 05/27/23 05/27/23 18:59 06:59 18:59 Intake Total 540 Balance 540 Weight 94.3 kg Intake: Oral 540 Other: Voiding Method Toilet Toilet Toilet # Voids 3 - Labs CBC & Chem 7: 05/27/23 07:16 05/27/23 07:16 Labs: Abnormal Lab Results - Last 24 Hours (Table) 05/27/23 05/27/23 Range/Units 07:16 07:16 RBC 1.91 L (4.40-5.60) X 10*6/uL Hgb 7.5 L (13.0-17.0) g/dL Hct 22.0 L (39.6-50.0) % MCV 115.2 H (80.0-97.0) FL MCH 39.3 H (27.0-32.0) pg RDW 15.7 H (11.5-14.5) % Plt Count 100 L (140-440) X 10*3/uL Immature Gran # 0.08 H (0.00-0.04) X 10*3/uL Lymphocytes # 0.31 L (0.90-5.00) X 10*3/uL Sodium 128 L (137-145) mmol/L BUN 26 H (9-20) mg/dL Creatinine 6.89 H (0.66-1.25) mg/dL Glucose 102 H (74-99) mg/dL Calcium 7.3 L (8.4-10.2) mg/dL Total Protein 4.3 L (6.3-8.2) g/dL Albumin 2.5 L (3.5-5.0) g/dL Microbiology - Last 24 Hours (Table) 05/24/23 20:32 Gram Stain - Preliminary Picc Line Tissue Culture - Preliminary Assessment and Plan Plan: Assessment: 1. End-stage renal disease maintained on hemodialysis on Saturday schedule. PD catheter removed 05/24/2023 due to recurrent peritonitis and malfunctioning PD catheter. Now has a tunneled femoral catheter. 2. Hyponatremia secondary to chronic disease. Hypervolemic. 3. Chronic kidney disease mineral bone disease maintained on calcitriol. 4. Anemia of chronic kidney disease maintained on Aranesp. Also history of multiple myeloma. 5. History of multiple myeloma. 6. Gram-positive PD associated peritonitis on antibiotics per ID. Plan: Currently seen was undergoing hemodialysis. Another treatment tomorrow as he will be maintained on TTS schedule outpatient. Check phosphorus level. Monitor vancomycin levels. Dose to be adjusted for renal function. Hold midodrine for systolic blood pressure greater than 115.
--- NOTE | 2023-05-27 15:02 | P.PN ---
Subjective Progress Note Date: 05/27/23 CHIEF COMPLAINT: Spontaneous bacterial peritonitis HISTORY OF PRESENT ILLNESS: Patient is status post removal of peritoneal dialysis catheter on 05/24/2023. Patient reports that his pain is improving each day. He is able to move easier. He denies any nausea or vomiting. Afebrile. WBC 4.83 Hgb 7.5 looks 100 PHYSICAL EXAM: VITAL SIGNS: Reviewed. GENERAL: Well-developed in no acute distress. HEENT: No sclera icterus. Extraocular movements grossly intact. Moist buccal mucosa. Head is atraumatic, normocephalic. ABDOMEN: Soft. Nondistended. Incision sites clean dry and intact. Mild tenderness at the second incision site from the right NEUROLOGIC: Alert and oriented. Cranial nerves II through XII grossly intact. ASSESSMENT: 1. Spontaneous bacterial peritonitis status post removal of peritoneal dialysis 2. End-stage renal disease PLAN: -Continue supportive care -Patient follow-up in the office with Dr. Tolbert -Patient can be discharged from surgical standpoint when medically cleared -Surgical service will sign off. Please call with any questions or concerns. Physician Heavy Coil Winder note has been reviewed by physician. Signing provider agrees with the documented findings, assessment, and plan of care. Objective - Vital Signs Vital signs: Vital Signs Temp 97.5 F L 05/27/23 08:09 Pulse 86 05/27/23 08:09 Resp 16 05/27/23 08:09 BP 158/80 05/27/23 08:09 Pulse Ox 98 05/27/23 08:09 FiO2 Intake & Output 05/26/23 05/27/23 05/27/23 18:59 06:59 18:59 Intake Total 540 Balance 540 Weight 94.3 kg Intake: Oral 540 Other: Voiding Method Toilet Toilet Toilet # Voids 3 - Labs CBC & Chem 7: 05/27/23 07:16 05/27/23 07:16 Labs: Abnormal Lab Results - Last 24 Hours (Table) 05/27/23 05/27/23 Range/Units 07:16 07:16 RBC 1.91 L (4.40-5.60) X 10*6/uL Hgb 7.5 L (13.0-17.0) g/dL Hct 22.0 L (39.6-50.0) % MCV 115.2 H (80.0-97.0) FL MCH 39.3 H (27.0-32.0) pg RDW 15.7 H (11.5-14.5) % Plt Count 100 L (140-440) X 10*3/uL Immature Gran # 0.08 H (0.00-0.04) X 10*3/uL Lymphocytes # 0.31 L (0.90-5.00) X 10*3/uL Sodium 128 L (137-145) mmol/L BUN 26 H (9-20) mg/dL Creatinine 6.89 H (0.66-1.25) mg/dL Glucose 102 H (74-99) mg/dL Calcium 7.3 L (8.4-10.2) mg/dL Total Protein 4.3 L (6.3-8.2) g/dL Albumin 2.5 L (3.5-5.0) g/dL Microbiology - Last 24 Hours (Table) 05/24/23 20:32 Gram Stain - Preliminary Picc Line Tissue Culture - Preliminary
--- NOTE | 2023-05-27 15:35 | P.DS ---
Providers Date of admission: 05/21/23 12:46 Expected date of discharge: 05/27/23 Attending physician: Fred Lawrence Consults: 05/21/23 12:01 Consult Physician Routine Consulting Provider: Abbi Hawkins Consult Reason/Comments: esrd Do you want consulting provider notified?: Yes 05/22/23 11:25 Consult Physician Urgent Consulting Provider: Fareed Reyes Consult Reason/Comments: permacath placement Do you want consulting provider notified?: Yes 05/23/23 15:52 Consult Physician Routine Consulting Provider: Taz Dickens Consult Reason/Comments: Peritonitis Do you want consulting provider notified?: Yes Primary care physician: Fred Lawrence [facility] Course: Diagnosis on discharge: Poorly functioning peritoneal dialysis catheter Underlying history of end-stage renal disease Underlying history of hypertension Underlying history of hyperlipidemia Underlying history of gout Underlying history of multiple myeloma Underlying history of anemia Hospital course: Dean Earl, is a 77-year-old who presented to [facility] emergency room with a chief complaint of mal-functioning peritoneal dialysis catheter He was evaluated in the emergency room, nephrology were contacted, patient will need to be admitted for replacement of peritoneal dialysis catheter, and short- term hemodialysis replacement. He was evaluated in the emergency room vital examination on presentation revealed a temperature of 97.4 pulse 95 respirations 16 blood pressure 121/68 pulse ox 100% on room air Laboratory data reveals a white blood count of 5.5 hemoglobin 9.0 platelet count 123 BUN 67 creatinine 7.8 Patient was admitted to medical floor for further evaluation and treatment Past medical history is significant for end-stage renal disease maintained on peritoneal dialysis since 2017, multiple myeloma, GERD, hypertension, hyperlipidemia, osteoarthritis, neuropathy and orthostatic hypotension On review of systems denies any chest pain or shortness of breath. Patient denies nausea vomiting or diarrhea. Patient denies any urinary burning or frequency On 05/22/2023 patient is alert and oriented 3. Awaiting further recommendations from nephrology for possible initiation of hemodialysis. Surgical services also consulted to evaluate peritoneal dialysis site. Current vital signs temp 97.7, heart rate 64, respiratory rate 17, blood pressure 05/17/1957 pulse ox 90% on room air On 05/23/2023 patient was seen and examined on the medical floor he is alert and oriented 3 in no apparent distress, hemodialysis catheter was placed and patient was started on hemodialysis, vital exam reveals a temperature of 98.2 pulse 98 respiration 22 blood pressure 123/72 pulse ox 98% on room air white blood count 4.62 hemoglobin 7.5 platelet count 112 BUN 71 creatinine 9.36 patient is maintained on IV vancomycin for peritonitis infectious disease consultation requested. 05/24/2023 patient alert and oriented 3 currently getting hemodialysis. Patient remains on IV vancomycin. Hemoglobin 8.0, creatinine 7.83 bun 45. Current vital signs temp 98.3, heart rate 93, respiratory rate 17, blood pres sure 118/71 with pulse ox 97% On 05/25/2023 patient was seen and examined on the medical floor, he is alert and oriented 3 in no apparent distress, there is no fever or chills no headache or dizziness no chest pain no shortness of breath, he has occasional cough no nausea or vomiting, he is still complaining of abdominal pain, no diarrhea and no urinary symptoms. On 05/26/2023 patient's alert and oriented 3. Patient currently resting comfortably in bed. Patient underwent dialysis catheter exchange Dr. Reyes yesterday. Awaiting hemodialysis recommendations per nephrology services. P kenya remains on IV vancomycin current vital signs temp 98.1, heart rate 82, respiratory rate 16, blood pressure 140/70 pulse ox 97% on room air On 05/27/2023 patient was seen and examined on the medical floor he is alert and oriented 3 in no apparent distress there is no fever or chills no headache or dizziness no chest pain no shortness of breath no cough no nausea or vomiting no abdominal pain no diarrhea and no urinary symptoms. Patient was cleared for discharge he will continue with hemodialysis as outpatient, he will continue follow-up with nephrology as outpatient. Patient will also follow-up with Dr. Reyes tomorrow as outpatient. Patient Condition at Discharge: Fair Plan - Discharge Summary Discharge Rx Participant: No New Discharge Prescriptions: Continue valACYclovir HCL [Valtrex] 500 mg PO QAM Simvastatin [Zocor] 20 mg PO HS Omeprazole [PriLOSEC] 20 mg PO HS Docusate [Colace] 100 mg PO DAILY PRN PRN Reason: Constipation Midodrine [ProAmatine] 10 mg PO AC-TID #90 tab Pro-Renal + Vit D (Unknown) 1 tab PO DAILY Pregabalin [Lyrica] 75 mg PO BID Lenalidomide [Revlimid] 2.5 mg PO MOTH Metoprolol Tartrate [Lopressor] 50 mg PO DAILY Finasteride [Proscar] 5 mg PO HS Diphenox-Atrop 2.5-0.025 mg [Lomotil] 1 tab PO 5XD PRN PRN Reason: Diarrhea Micera 50mcg/0.3ml 50 mcg INJ Q14D calcitrioL [Calcitriol] 0.5 mcg PO WE Magnebind 1 cap PO DAILY Magnesium Oxide [Mag-Ox] 400 mg PO DAILY Tamsulosin [Flomax] 0.4 mg PO HS Sodium Bicarbonate Tab 650 mg PO DAILY Calcium Carbonate [Tums] 1,000 mg PO Q3H Potassium Chloride ER [K-Dur 20] 20 meq PO BID Furosemide [Lasix] 80 mg PO BID Ergocalciferol (Vitamin D2) [Drisdol (50,000 Iu)] 1,250 mcg PO SA Sulfamethox-Tmp 800-160Mg [Bactrim DS 800-160 mg] 1 tab PO MOWEFR Discharge Medication List Omeprazole [PriLOSEC] 20 mg PO HS 08/18/16 [History] Simvastatin [Zocor] 20 mg PO HS 08/18/16 [History] valACYclovir HCL [Valtrex] 500 mg PO QAM 08/18/16 [History] Docusate [Colace] 100 mg PO DAILY PRN 09/24/16 [History] Midodrine [ProAmatine] 10 mg PO AC-TID #90 tab 10/04/16 [Rx] Finasteride [Proscar] 5 mg PO HS 03/30/18 [History] Lenalidomide [Revlimid] 2.5 mg PO MOTH 03/30/18 [History] Metoprolol Tartrate [Lopressor] 50 mg PO DAILY 03/30/18 [History] Pregabalin [Lyrica] 75 mg PO BID 03/30/18 [History] Pro-Renal + Vit D (Unknown) 1 tab PO DAILY 03/30/18 [History] Calcium Carbonate [Tums] 1,000 mg PO Q3H 05/21/23 [History] Diphenox-Atrop 2.5-0.025 mg [Lomotil] 1 tab PO 5XD PRN 05/21/23 [History] Ergocalciferol (Vitamin D2) [Drisdol (50,000 Iu)] 1,250 mcg PO SA 05/21/23 [History] Furosemide [Lasix] 80 mg PO BID 05/21/23 [History] Magnebind 1 cap PO DAILY 05/21/23 [History] Magnesium Oxide [Mag-Ox] 400 mg PO DAILY 05/21/23 [History] Micera 50mcg/0.3ml 50 mcg INJ Q14D 05/21/23 [History] Potassium Chloride ER [K-Dur 20] 20 meq PO BID 05/21/23 [History] Sodium Bicarbonate Tab 650 mg PO DAILY 05/21/23 [History] Sulfamethox-Tmp 800-160Mg [Bactrim DS 800-160 mg] 1 tab PO MOWEFR 05/21/23 [History] Tamsulosin [Flomax] 0.4 mg PO HS 05/21/23 [History] calcitrioL [Calcitriol] 0.5 mcg PO WE 05/21/23 [History] Follow up Appointment(s)/Referral(s): Bhavin Tolbert MD [Medical Doctor] - 3 Weeks [facility] [NON-STAFF] - 1 Week Fred Lawrence MD [Primary Care Provider] - 1-2 days
[2023-05-27 16:26] VITALS: BP 138/79; PULSE 86; RESP 16; TEMP 97.4
== END 2023-05-27 16:46 | disposition home or self-care (01) | DRG 907 ==
LOC: EC 11:36 → 5NMEDONC 12:46
PROVIDERS: ADMIT Internal Medicine; ATTEND Internal Medicine
PROC: 06HM33Z Insertion of Infusion Device into Right Femoral Vein, Percutaneous Approach (ICD-10-PCS; 2023-05-18)
PROC: 0JHL3XZ Insertion of Tunneled Vascular Access Device into Right Upper Leg Subcutaneous Tissue and Fascia, Percutaneous Approach (ICD-10-PCS; 2023-05-22)
PROC: 06H033Z Insertion of Infusion Device into Inferior Vena Cava, Percutaneous Approach (ICD-10-PCS; 2023-05-22)
PROC: 5A1D70Z Performance of Urinary Filtration, Intermittent, Less than 6 Hours Per Day (ICD-10-PCS; 2023-05-22)
PROC: 0DNU4ZZ Release Omentum, Percutaneous Endoscopic Approach (ICD-10-PCS; 2023-05-25)
PROC: 8E0W4CZ Robotic Assisted Procedure of Trunk Region, Percutaneous Endoscopic Approach (ICD-10-PCS; 2023-05-25)
PROC: 0J2WXYZ Change Other Device in Lower Extremity Subcutaneous Tissue and Fascia, External Approach (ICD-10-PCS; 2023-05-25)
PROC: 0WPG43Z Removal of Infusion Device from Peritoneal Cavity, Percutaneous Endoscopic Approach (ICD-10-PCS; principal; 2023-05-25 12:11)
DX: T85.611A Breakdown (mechanical) of intraperitoneal dialysis catheter, initial encounter (principal); K65.2 Spontaneous bacterial peritonitis; N18.6 End stage renal disease; I13.2 Hypertensive heart and chronic kidney disease with heart failure and with stage 5 chronic kidney disease, or end stage renal disease; I50.32 Chronic diastolic (congestive) heart failure; I87.1 Compression of vein; E87.1 Hypo-osmolality and hyponatremia; C90.00 Multiple myeloma not having achieved remission; T85.71XA Infection and inflammatory reaction due to peritoneal dialysis catheter, initial encounter; E83.51 Hypocalcemia; D63.1 Anemia in chronic kidney disease; E66.09 Other obesity due to excess calories; Z99.2 Dependence on renal dialysis; I77.1 Stricture of artery; E78.5 Hyperlipidemia, unspecified; I95.1 Orthostatic hypotension; K21.9 Gastro-esophageal reflux disease without esophagitis; N40.0 Benign prostatic hyperplasia without lower urinary tract symptoms; G62.9 Polyneuropathy, unspecified; E16.2 Hypoglycemia, unspecified; Z53.8 Procedure and treatment not carried out for other reasons; E87.6 Hypokalemia; M89.8X9 Other specified disorders of bone, unspecified site; R53.81 Other malaise; K66.0 Peritoneal adhesions (postprocedural) (postinfection); M10.9 Gout, unspecified; R13.10 Dysphagia, unspecified; M19.90 Unspecified osteoarthritis, unspecified site; Y71.1 Therapeutic (nonsurgical) and rehabilitative cardiovascular devices associated with adverse incidents; Z79.899 Other long term (current) drug therapy; Z68.31 Body mass index [BMI] 31.0-31.9, adult
CPT/HCPCS: 36415; 36558; 36580; 74018; 76937; 77001; 80048; 80053; 80202; 85025; 85610; 85730; 86706; 86850; 86900; 86901; 87070; 87075; 87205; 87340; 90935; 93005; 96360; 96361; 99285

== ENCOUNTER 2023-06-24 07:16 | Day surgery (SDC) | payer MEDICARE ==
[2023-06-18 14:03] VITALS: BMI 29.5
[~2023-06-24 07:16] MED LIST changes: -BUPIVACAIN-EPI 0.25%-1:200,000 30 ML VIAL SQ ONE; -DEXAMETHASONE SOD PHOSPHATE 10 MG/ML 1 ML VIAL IV ONE; -HYDROcodone/APAP 5-325MG 1 EACH TAB PO ONE; -HYDROcodone/APAP 5-325MG 1 EACH TAB PO PRN; -HYDROmorphone 1 MG/ML 1 ML SYRINGE IVP PRN; -LACTATED RINGERS 1,000 ML IV SCH; +LIDOCAINE 1% (10MG/ML) FOR IV START INTRADERMA PRN; -LIDOCAINE 1% 20 ML VIAL (10MG/ML) FOR IV START INTRADERMA PRN; -LIDOCAINE 1% INJ 10MG/ML (20 ML MDV) ONE; -MIDAZOLAM 2 MG/2 ML VIAL IV PRN; -MIDAZOLAM 2 MG/2 ML VIAL ONE; -MINERAL OIL 1 APPLIC/ML OIL MISCELLANE ONE; -MORPHINE SULFATE 4 MG/ML SYRINGE IV ONE; -NALOXONE 0.4 MG/ML 1 ML VIAL IV PRN; -ONDANSETRON 4 MG/2 ML VIAL IVP ONE; -PROPOFOL 10 MG/ML 20 ML VIAL IV ONE; -SCOPOLAMINE 1.5MG/72HR PATCH TRANSDERM ONE; -ceFAZolin 2 GM in SODIUM CHLORIDE 0.9% 100 ML IVPB ONE; +fentaNYL (PF) 50 MCG/ML 2 ML AMP IV PRN; -fentaNYL (PF) 50 MCG/ML 2 ML AMP ONE
[2023-06-24] MEDS: LACTATED RINGERS 1,000 ML IV SCH (07:31)
[2023-06-24] MEDS: SODIUM CHLORIDE 0.9% 1,000 ML IV ONE (07:32)
[2023-06-24] MEDS: ONDANSETRON 4 MG/2 ML VIAL IVP ONE (07:59)
[2023-06-24 08:03] VITALS: TEMP 97.4
[2023-06-24] MEDS: HEPARIN SODIUM,PORCINE 5,000 UNIT/ML 1 ML VIAL SQ PRN (08:05)
[2023-06-24] MEDS: ACETAMINOPHEN TAB 500 MG TAB PO PRN (08:05)
[2023-06-24 08:20] LABS: Anisocytosis Slight; MCH 38.5 pg (25.0-35.0); MCHC 34.3 g/dL (31.0-37.0); MCV 112.2 fL (80.0-100.0); Macrocytosis Marked; Mean Platelet Volume 9.5; Platelet Count 110 k/uL (150-450); RBC 2.49 m/uL (4.30-5.90); RDW 16.7 % (11.5-15.5); WBC 4.3 k/uL (3.8-10.6)
[2023-06-24 08:21] LABS: HGB 9.6 gm/dL (13.0-17.5)
[2023-06-24 08:22] LABS: African American GFR (CKD) 9 (>60 ml/min/1.73 sqM); Blood Urea Nitrogen 67 mg/dL (9-20); Non-African American GFR(CKD) 8 (>60 ml/min/1.73 sqM)
[2023-06-24 08:26] LABS: Potassium 4.5 mmol/L (3.5-5.1)
[2023-06-24 08:47] LABS: Basophils # (M) 0.09 k/uL (0-0.2); Eosinophils # (M) 0.22 k/uL (0-0.7); Lymphocytes # (M) 0.65 k/uL (1.0-4.8); Monocytes # (M) 0.56 k/uL (0-1.0); Neutrophils % (M) 65 %; Nucleated Red Blood Cells 0 /100 WBC (0-0); Total Cells Counted 100
[2023-06-24] MEDS ORDERED: LIDOCAINE 1% INJ 10MG/ML (20 ML MDV) ONE (09:45)
[2023-06-24] MEDS ORDERED: GLYCOPYRROLATE 0.2 MG/ML 2 ML VIAL ONE (09:45)
[2023-06-24] MEDS ORDERED: ePHEDrine 50 MG/ML 1 ML VIAL ONE (09:45)
[2023-06-24] MEDS ORDERED: SUCCINYLCHOLINE CHLORIDE 200 MG/10 ML VIAL IV ONE (09:45)
[2023-06-24] MEDS ORDERED: ROCURONIUM 10 MG/ML (5 ML VIAL) IV ONE (09:45)
[2023-06-24] MEDS ORDERED: fentaNYL (PF) 50 MCG/ML 2 ML AMP ONE (09:45)
[2023-06-24] MEDS ORDERED: PHENYLEPHRINE-0.9% NACL SYG 1,000 MCG/10 ML SYRINGE ONE (09:45)
[2023-06-24] MEDS ORDERED: NEOSTIGMINE 1 MG/ML 10 ML VIAL ONE (09:45)
[2023-06-24] MEDS ORDERED: PROPOFOL 10 MG/ML 20 ML VIAL IV ONE (09:45)
[2023-06-24] MEDS: BUPIVACAINE (PF) 0.25% 10 ML VIAL SQ ONE (10:10)
[2023-06-24] MEDS ORDERED: NALOXONE 0.4 MG/ML 1 ML VIAL IV PRN (10:51)
[2023-06-24] MEDS ORDERED: HYDROcodone/APAP 5-325MG 1 EACH TAB PO PRN (10:51)
--- NOTE | 2023-06-24 10:56 | P.OP ---
Date of Procedure: 06/24/23 Procedure(s) Performed: PREOPERATIVE DIAGNOSIS: Renal failure POSTOPERATIVE DIAGNOSIS: Same PROCEDURE: Peritoneal dialysis catheter insertion, diagnostic laparoscopy SURGEON: Tomasz EBL: 5 cc ANESTHESIA: General COMPLICATIONS: None OPERATIVE PROCEDURE: The patient was placed in the operative table in the supine position. The abdomen was prepped and draped in usual sterile fashion. A small vertical incision was made in the left periumbilical location. Dissection down through the subcutaneous tissues took place using electrocautery. The anterior rectus was divided vertically using the scalpel. The rectus was bluntly. The posterior rectus was visualized. An 0 Vicryl pursestring was mary kay soledad. A small opening in the posterior rectus fascia and peritoneum took place using a Metzenbaum scissors. There were no adhesions to the suture that was placed. The pigtail catheter was advanced into the pelvis over a stylette. No resistance was met. The inner cuff was secured to the fascia using the 0 Vicryl pursestring that was placed. The catheter was tunneled to an exit site in the left lateral lower quadrant. Given the patient's difficulties with past catheter insertions I did place a 5 mm optical trocar in the left upper quadrant. Insufflation had taken place through the catheter itself. The pigtail portion of the intra-abdominal catheter was seated nicely in the midline pelvis. There is only a little bit of adhesions to the right upper abdomen likely from the previous omentopexy. I was impressed with the lack of intra- abdominal adhesions in all honesty. The pneumoperitoneum was evacuated. The trocar was removed. The catheter was connected to the 1 L bag of saline and approximated 400 mL of saline was easily introduced into the peritoneal cavity. The fluid was then allowed to evacuate. The majority of the fluid was returned. The anterior rectus fascia was then reapproximated using a running 0 Vicryl stitch. The subcutaneous tissues reprepped using 3-0 Vicryl sutures and the skin using 4-0 Monocryl sutures. The outpatient dialysis adapter was applied to the end of the catheter. Sterile dressings were then applied after skin glue was placed over the incision. DISPOSITION: Stable to recovery room
[2023-06-24] MEDS: MIDODRINE 5 MG TAB PO ONE (11:55)
[2023-06-24 13:04] VITALS: BP 100/57; PULSE 78; RESP 16
== END 2023-06-24 13:18 | disposition home or self-care (01) ==
LOC: OR 07:16
PROVIDERS: ATTEND Surgery
DX: I12.9 Hypertensive chronic kidney disease with stage 1 through stage 4 chronic kidney disease, or unspecified chronic kidney disease (principal); N18.9 Chronic kidney disease, unspecified; K66.0 Peritoneal adhesions (postprocedural) (postinfection); K21.9 Gastro-esophageal reflux disease without esophagitis; E78.5 Hyperlipidemia, unspecified; C90.00 Multiple myeloma not having achieved remission; M19.90 Unspecified osteoarthritis, unspecified site; Z79.899 Other long term (current) drug therapy; Z88.8 Allergy status to other drugs, medicaments and biological substances
CPT/HCPCS: 82565; 84132; 84520; 85025; 49324; J0330; J1644; J2710; J0690; J2405; J2001; J3010; J2704; J2371; J0665

== ENCOUNTER → 2023-08-29 | Outpatient (CLI) | payer MEDICARE ==
[2023-08-29 16:31] LABS: Blood Urea Nitrogen 64.9 mg/dL (9.0-27.0); Chloride 93 mmol/L (96-109); Potassium 4.8 mmol/L (3.5-5.5); Sodium 133 mmol/L (135-145)
[2023-08-29 16:38] LABS: HCT 32.3 % (39.6-50.0); Immature Platelet Fraction 7.8 % (1.1-6.1); MCH 36.7 pg (27.0-32.0); MCHC 34.1 g/dL (32.0-37.0); MCV 107.7 FL (80.0-97.0); NRBC Per 100 WBC 0 X 10*3/uL (0.00-0.01); Platelet Count 79 X 10*3/uL (140-440); RDW 17.8 % (11.5-14.5); WBC 4.09 X 10*3/uL (4.50-10.00)
== END | disposition home or self-care (01) ==
LOC: LABPAT 11:24
PROVIDERS: ATTEND Internal Medicine Interventional Cardiology
DX: Z01.812 Encounter for preprocedural laboratory examination (principal); R94.39 Abnormal result of other cardiovascular function study
CPT/HCPCS: 36415; 80051; 82565; 84520; 85027

== ENCOUNTER 2023-09-03 05:33 | Day surgery (SDC) | payer MEDICARE ==
[2023-09-03] MEDS ORDERED: ALPRAZolam 0.5 MG TAB PO PRN (05:55)
[2023-09-03] MEDS ORDERED: HEPARIN SODIUM,PORCINE (1 ML) 2,500 UNIT in SODIUM CHLORIDE 0.9% 250 ML IRRIGATION PRN (05:55)
[2023-09-03] MEDS ORDERED: HEPARIN SODIUM,PORCINE 10,000 UNIT in SODIUM CHLORIDE 0.9% 1,000 ML IRRIGATION PRN (05:55)
[2023-09-03] MEDS ORDERED: NITROGLYCERIN SL TABS 0.4 MG TAB SUBLINGUAL PRN ×2 (05:55→08:47)
[2023-09-03] MEDS: SODIUM CHLORIDE 0.9% 1,000 ML IV ONE (06:36)
[2023-09-03] MEDS: SODIUM CHLORIDE 0.9% 1,000 ML in EMPTY BAG 1 BAG IV SCH ×2 (06:38→09:00)
[2023-09-03] MEDS: ALPRAZolam 0.25 MG TAB PO PRN (06:39)
[2023-09-03] MEDS ORDERED: LIDOCAINE 1% INJ 10MG/ML (20 ML MDV) ONE (07:14)
[2023-09-03] MEDS ORDERED: VERAPAMIL 2.5 MG/ML 2 ML AMP ONE (07:14)
[2023-09-03] MEDS ORDERED: HEPARIN SODIUM 1,000 UN/ML (10ML VL) ONE (07:30)
[2023-09-03] MEDS ORDERED: fentaNYL (PF) 50 MCG/ML 2 ML AMP ONE (07:30)
[2023-09-03] MEDS: fentaNYL (PF) 50 MCG/ML 2 ML AMP IVP ONE (07:44)
[2023-09-03] MEDS: LIDOCAINE 1% INJ 10MG/ML (30 ML VIAL-PF) SQ ONE (07:50)
[2023-09-03] MEDS: VERAPAMIL SYRINGE (5 MG/10 ML) INTRAARTER ONE (07:50)
[2023-09-03] MEDS: HEPARIN SODIUM 1,000 UN/ML (10ML VL) IV ONE (07:55)
[2023-09-03] MEDS ORDERED: CLOPIDOGREL 75 MG TAB ONE (07:59)
[2023-09-03] MEDS: CLOPIDOGREL 75 MG TAB PO ONE (08:05)
[2023-09-03] MEDS: IOPAMIDOL-370 100ML BTL INJ ONE ×2 (08:11→08:30)
[2023-09-03] MEDS: NITROGLYCERIN 1000MCG/10ML SYRINGE INTRACORON ONE (08:26)
[2023-09-03] MEDS ORDERED: RX INFO: IV CONTRAST WAS GIVEN 1 EACH MISC MISCELLANE PRN (08:47)
[2023-09-03] MEDS ORDERED: ATROPINE SULFATE 0.1 MG/ML 10ML SYRINGE IV PRN (08:47)
[2023-09-03] MEDS ORDERED: MAG HYDROX/AL HYDROX/SIMETH 30 ML CUP PO PRN (08:47)
[2023-09-03] MEDS ORDERED: ZOLPIDEM 5 MG TAB PO PRN (08:47)
[2023-09-03] MEDS ORDERED: DOCUSATE 100 MG CAP PO PRN (08:48)
[2023-09-03] MEDS ORDERED: DIPHENOX-ATROP 2.5-0.025 MG 1 EACH TAB PO PRN (08:48)
--- NOTE | 2023-09-03 08:57 | P.CARDCATH ---
Date of Procedure: 09/03/23 Description of Procedure: Cardiac Catheterization: The patient is a 77-year-old male with known history of end-stage renal disease, hypertension, hyperlipidemia who has been complaining of progressive dyspnea on exertion and had an abnormal MPI. Recommendations were made regarding cardiac catheterization, the risks and the complications were discussed with the patient who is in full understanding and agreement. Procedure Description: Patient was brought to laboratory chemist in fasting semi-sedated state after receiving Fentanyl and Benadryl achieiving moderate conscious sedated state. Using Xylocaine Anesthesia and modified Seldinger technique, a 6-Armenian sheath was introduced in the right radial artery . Subsequently, selective coronary angiography was performed using a 5-Armenian 3.5 bend Gerson catheter. Multiple views of the coronary artery including hemiaxial views were obtained. The right Gerson catheter was used to cross the aortic valve and LVEDP was calculated. PCI: After removing the catheters a 6 Armenian CLS 3.5 guiding catheter was introduced into the system and subsequently a 0.014 BMW J-wire with a fine cross microcatheter were advanced, the totally occluded OM1 was wired and the wire was positioned distally. After removing the fine cross a 2.25 x 12 mm trek balloon was advanced and 1 inflation at 8 cally was done subsequently a a [place] Barber eye IVUS catheter was introduced and imaging were obtained, which showed a landing zone of 3.25 to 3.5 mm diameter. Subsequently a 3.25 x 23 mm Xience earnest point stent was advanced and deployed at 16 cally, after removing the balloon repeat IVUS imaging was performed. It showed good apposition of the stent. Images were obtained after removing the wire and revealed stable successful stenting. Following that, catheter and sheath were removed. Hemostasis was obtained with deployment of vascular band . There was no immediate complication. Patient was returned to room in stable condition. Of note, the patient received a total of 7000 units of intravenous heparin as well as intra-arterial verapamil. He received an oral loading dose of clopidogrel. His ACT was monitored. He had no chest discomfort or significant EKG changes. Findings: Left main: This is a short size vessel, bifurcating into left circumflex and LAD, left main has no obstructive disease LAD: This is a large size vessel, reaching to the apex, giving rise to 2 diagonal branch. The mid LAD has 20 to 30% plaque, the rest of the vessel has no high-grade stenosis Left circumflex: This is a large codominant vessel bifurcating distally to PDA and PLV. The first obtuse marginal branch is subtotally occluded with minimal antegrade flow, the rest of the vessel has no evidence of high-grade stenosis RCA: This is a codominant vessel moderate in caliber giving rise to a PDA distally. The mid right coronary artery has mild intimal plaque of 20 to 30% with no high-grade stenosis Left Ventriculogram: Not performed Hemodynamics: There was no gradient across the aortic valve, LVEDP was 18-20 mmHg Conclusion: 1. Chronically occluded OM1 2. Mild disease in the LAD and the RCA 3. Codominant system 4. Successful stenting of the OM1 with YOUSUF-3 flow. There is diffuse intimal disease in the distal segment of the vessel. With reduction of stenosis from 100% to 0% with IVUS imaging Recommendations: The patient will continue on aspirin and clopidogrel for 6 months without any interruption in addition to aggressive coronary risks modification, attempting to maintain LDL below 70 mg/dL. The findings and the recommendations were discussed with the patient and the family and they were in full understanding and agreement. Duration of sedation is 44 minutes.
[2023-09-03] MEDS ORDERED: amLODIPine 5 MG TAB PO SCH (09:00)
--- NOTE | 2023-09-03 12:03 | P.NPCON ---
History of Present Illness - Reason for Consult end stage renal disease - History of Present Illness Reason for consultation: End-stage renal disease History of present illness: Patient is a 77-year-old male seen in renal consultation for end-stage renal disease. He is maintained on peritoneal dialysis outpatient however his peritoneal membrane has been failing and he has not been able to get much ultrafiltration by doing peritoneal dialysis. Patient recently started doing hemodialysis and currently has a left chest permacath. Last hemodialysis was yesterday. Patient states he has been feeling short of breath the last few days and has been following with cardiology. He underwent cardiac catheterization this morning with stent placement. He currently denies any chest pain or shortness of breath. No vomiting or diarrhea. No fever or chills. Hemodynamically stable. Patient has history of multiple myeloma. Patient does also have history of peritonitis. Denies abdominal pain. Denies cloudy dialysate. Vital signs are stable. General: No acute distress. HEENT: Head exam is unremarkable. LUNGS: No audible rhonchi or wheezes. HEART: Rate and Rhythm are regular. ABDOMEN: Nontender. EXTREMITITES: No edema. Past Medical History Past Medical History: Cancer, Dialysis, GERD/Reflux, Hearing Disorder / Deafness, Hyperlipidemia, Hypertension, Osteoarthritis (OA), Prostate Disorder, Renal Disease Additional Past Medical History / Comment(s): multiple myeloma, enlarged prostate, kidney stones, diverticulosis, hiatal hernia, hemodialysis august-October 2016, CAPD since October 2016 until infected PD catheter and has had hemodialysis in early 2023 while awaiting new PD catheter - back to PD 07/08/23 but catheter is not working properly and has support hemodialysis along with CADP, orthostatic hypotension, intermittent diarrhea since 2016, neuropathy, leaky mitral valve/weak left ventricle of heart, pt is on oral CHEMO Revlamid Saturday and , recent increased SOB as well as dysphagia, increased [place] - pt. does not want to be tested History of Any Multi-Drug Resistant Organisms: None Reported Additional Past Surgical History / Comment(s): lithotripsy/laser, fatty tumor removed from right chest, colonoscopy, PERMA cath rt upper chest- removed 2016, hemodialysis cath august-October 27, bilateral cataracts removed, CAPD cath adjustment within two weeks of first insertion in 2016, several attempts at new hemodialysis catheter early 2023 - Lt. subclavian hemodialysis catheter, new peritoneal catheter insertion Lt. abdomen 06/24/23 Past Anesthesia/Blood Transfusion Reactions: No Reported Reaction Additional Past Anesthesia/Blood Transfusion Reaction / Comment(s): previous blood transfusion without any reactions. very sore throat with 2 intubations in 2023 Smoking Status: Never smoker - Past Family History Sister(s) Family Medical History: Cancer Father Family Medical History: Cancer, Deep Vein Thrombosis (DVT) Mother Family Medical History: Dementia Additional Family Medical History / Comment(s): from alzheimer's Brother(s) Family Medical History: Diabetes Mellitus Medications and Allergies Home Medications Medication Instructions Recorded Confirmed Type Omeprazole [PriLOSEC] 20 mg PO HS 08/18/16 09/03/23 History Simvastatin [Zocor] 20 mg PO HS 08/18/16 09/03/23 History valACYclovir HCL [Valtrex] 500 mg PO QAM 08/18/16 09/03/23 History Docusate [Colace] 100 mg PO DAILY PRN 09/24/16 09/03/23 History Finasteride [Proscar] 5 mg PO HS 03/30/18 09/03/23 History Lenalidomide [Revlimid] 2.5 mg PO MOTH 03/30/18 09/03/23 History Metoprolol Tartrate [Lopressor] 50 mg PO DAILY 03/30/18 08/30/23 History Pregabalin [Lyrica] 75 mg PO BID 03/30/18 09/03/23 History Pro-Renal + Vit D (Unknown) 1 tab PO DAILY 03/30/18 09/03/23 History Calcium Carbonate [Tums] 1,500 mg PO QID 05/21/23 09/03/23 History Diphenox-Atrop 2.5-0.025 mg 1 tab PO 5XD PRN 05/21/23 09/03/23 History [Lomotil] Ergocalciferol (Vitamin D2) 1,250 mcg PO SA 05/21/23 09/03/23 History [Drisdol (50,000 Iu)] Furosemide [Lasix] 80 mg PO BID 05/21/23 09/03/23 History Magnebind 1 cap PO DAILY 05/21/23 09/03/23 History Magnesium Oxide [Mag-Ox] 400 mg PO DAILY 05/21/23 09/03/23 History Micera 50mcg/0.3ml 50 mcg INJ DIRECTED 05/21/23 09/03/23 History Potassium Chloride ER [K-Dur 20] 20 meq PO HS 05/21/23 09/03/23 History Sodium Bicarbonate Tab 650 mg PO BID 05/21/23 09/03/23 History Sulfamethox-Tmp 800-160Mg [Bactrim 1 tab PO MOWEFR 05/21/23 08/30/23 History DS 800-160 mg] Tamsulosin [Flomax] 0.4 mg PO HS 05/21/23 09/03/23 History calcitrioL 0.5 mcg PO WE 05/21/23 09/03/23 History Cyanocobalamin (Vitamin B-12) 1,000 mcg PO DAILY 06/18/23 09/03/23 History [Vitamin B-12] Aspirin [Adult Low Dose Aspirin EC] 324 mg PO DAILY 06/24/23 09/03/23 History Midodrine [ProAmatine] 10 mg PO Q6H PRN 08/30/23 09/03/23 History amLODIPine BESYLATE 5 mg PO QAM 08/30/23 09/03/23 History lisinopriL [Zestril] 10 mg PO BID 08/30/23 09/03/23 History metOLazone 5 mg PO BID 08/30/23 09/03/23 History Allergies Allergy/AdvReac Type Severity Reaction Status Date / Time No Known Allergies Allergy Verified 08/30/23 09:40 Physical Exam Vitals: Vital Signs Temp Pulse Pulse Resp BP BP Pulse Ox 09/03/23 10:57 75 16 136/71 09/03/23 10:42 75 16 140/72 09/03/23 10:27 72 16 123/63 09/03/23 10:12 68 16 127/61 09/03/23 09:57 70 16 131/65 09/03/23 09:42 70 16 131/65 09/03/23 09:12 76 16 147/70 09/03/23 08:55 85 16 146/95 09/03/23 06:31 97.5 F L 78 16 156/93 155/80 97 Intake and Output 09/02/23 09/03/23 09/03/23 22:59 06:59 14:59 Intake Total 200 125 Balance 200 125 Intake: IV 200 125 Other: Weight 92.9 kg Assessment and Plan Plan: Assessment: 1. End-stage renal disease maintained on peritoneal dialysis. Peritoneal membrane feeling not getting any ultrafiltration with PD. Recently transition to hemodialysis and has a left chest permacath. 2. Hypertension with chronic kidney disease. Stable. 3. Coronary artery disease status postcardiac catheterization with stent placement this morning. 4. 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 5. Multiple myeloma. On Revlimid. Plan: Hemodialysis tomorrow. Potential discharge after dialysis tomorrow. Case discussed with cardiology. Thank you for the consultation. I will continue to follow the patient with you during his hospital stay.
[2023-09-03] MEDS: ATORVASTATIN 80 MG TAB PO ONE (12:20)
[2023-09-03] MEDS: ASPIRIN 325 MG TAB PO ONE (12:20)
[2023-09-03] MEDS: CYANOCOBALAMIN 500 MCG TAB PO SCH (12:20)
[2023-09-03] MEDS: lisinopriL 10 MG TAB PO SCH (13:32)
[2023-09-03] MEDS: MAGNEBIND PO SCH (13:33)
[2023-09-03 15:00] VITALS: BMI 31.1
[2023-09-03] MEDS: CALCIUM CARBONATE 500 MG CHEWABLE PO SCH (16:05)
[2023-09-03] MEDS: FINASTERIDE 5 MG TAB PO SCH (20:41)
[2023-09-03] MEDS: SODIUM BICARBONATE TAB 650 MG TAB PO SCH (20:41)
[2023-09-03] MEDS: PANTOPRAZOLE 40 MG TABLET PO SCH (20:42)
[2023-09-03] MEDS: TAMSULOSIN 0.4 MG CAP.ER.24H PO SCH (20:42)
--- NOTE | 2023-09-04 07:12 | P.PN ---
Subjective Progress Note Date: 09/04/23 PROGRESS NOTE The patient is a 77-year-old male with known history of end-stage renal disease, hypertension, hyperlipidemia who has been complaining of progressive dyspnea and had an abnormal MPI. Underwent cardiac catheterization and was found to have occluded OM1 and underwent stenting of that vessel. He is doing well this morning. He denies any chest discomfort, dizziness or palpitations. He continues to be in sinus mechanism. Medications: Aspirin, amlodipine 5 mg daily, Lipitor 40 mg daily, Plavix 75 mg daily, Proscar 5 mg daily, Revlimid, lisinopril 10 mg twice a day, magnesium, metoprolol 50 mg daily, Flomax 0.4 mg daily. PHYSICAL EXAMINATION: Blood pressure 148/70 heart rate 90 LUNGS: Clear to auscultation HEART: Regular rate and rhythm, S1, S2. No S3. Systolic ejection murmur ABDOMEN: Soft, nontender, no organomegaly EXTREMETIES: No edema, hematoma on the right hand and right forearm with good pulse LAB: EKG shows sinus mechanism with no acute ST segment changes IMPRESSION: 1. Stenting of OM1 2. End-stage renal disease on peritoneal dialysis 3. History of hypertension 4. History of hyperlipidemia PLAN: 1. Continue present therapy 2. Discharge home today 3. Increase physical activity 4. Follow-up in 1 week Objective - Vital Signs Vital signs: Vital Signs Temp 97.7 F 09/04/23 03:23 Pulse 95 09/04/23 03:23 Resp 16 09/04/23 03:23 BP 148/73 09/04/23 03:23 Pulse Ox 94 L 09/04/23 03:23 FiO2 Intake & Output 09/03/23 09/04/23 09/04/23 18:59 06:59 18:59 Intake Total 243 Balance 243 Weight 92.9 kg Intake: IV 125 Oral 118 Other: # Voids 1 2 # Bowel Movements 1
[2023-09-04 07:33] LABS: African American GFR (CKD) 11 (>60 ml/min/1.73 sqM); Anion Gap 6 mmol/L; Blood Urea Nitrogen 36 mg/dL (9-20); Calcium 7.6 mg/dL (8.4-10.2); Carbon Dioxide 27 mmol/L (22-30); Chloride 97 mmol/L (98-107); Glucose 72 mg/dL (74-99); Non-African American GFR(CKD) 10 (>60 ml/min/1.73 sqM); Potassium 3.9 mmol/L (3.5-5.1); Sodium 130 mmol/L (137-145)
[2023-09-04] MEDS: ATORVASTATIN 40 MG TAB PO SCH (08:42)
[2023-09-04] MEDS: CLOPIDOGREL 75 MG TAB PO SCH (08:42)
[2023-09-04] MEDS: ASPIRIN 81 MG PO SCH (08:42)
[2023-09-04] MEDS: MAGNESIUM OXIDE 400 MG TAB PO SCH (08:43)
[2023-09-04] MEDS: METOPROLOL TARTRATE 50 MG TAB PO SCH (08:43)
[2023-09-04] MEDS: amLODIPine 5 MG TAB PO SCH (08:43)
--- NOTE | 2023-09-04 12:05 | P.PN ---
Subjective Patient is seen in follow-up for end-stage renal disease. Being transition from peritoneal to hemodialysis. Scheduled for hemodialysis today. Denies chest pain or shortness of breath. Vital signs are stable. General: No acute distress. HEENT: Head exam is unremarkable. LUNGS: No audible rhonchi or wheezes. HEART: Rate and Rhythm are regular. ABDOMEN: Nontender. EXTREMITITES: Trace edema. Objective - Vital Signs Vital signs: Vital Signs Temp 98.4 F 09/04/23 07:30 Pulse 105 H 09/04/23 07:30 Resp 15 09/04/23 07:30 BP 138/77 09/04/23 07:30 Pulse Ox 95 09/04/23 07:30 FiO2 Intake & Output 09/03/23 09/04/23 09/04/23 18:59 06:59 18:59 Intake Total 243 118 Balance 243 118 Weight 92.9 kg Intake: IV 125 Oral 118 118 Other: # Voids 1 2 # Bowel Movements 1 - Labs CBC & Chem 7: 09/04/23 06:17 Labs: Abnormal Lab Results - Last 24 Hours (Table) 09/04/23 Range/Units 06:17 Sodium 130 L (137-145) mmol/L Chloride 97 L (98-107) mmol/L BUN 36 H (9-20) mg/dL Creatinine 5.25 H (0.66-1.25) mg/dL Glucose 72 L (74-99) mg/dL Calcium 7.6 L (8.4-10.2) mg/dL Assessment and Plan Plan: Assessment: 1. End-stage renal disease maintained on peritoneal dialysis. Peritoneal membrane failing and not getting any ultrafiltration with PD. Recently transi tioned to hemodialysis and has a left chest permacath. 2. Hypertension with chronic kidney disease. Stable. 3. Coronary artery disease status postcardiac catheterization with stent placement September 03, 2023. 4. 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 5. Multiple myeloma. On Revlimid. 6. Hyponatremia secondary to chronic kidney disease. Expect improvement postdialysis Plan: Hemodialysis today. Potential discharge after dialysis today.
[2023-09-04 16:56] VITALS: BP 153/82; PULSE 83; RESP 18; TEMP 98
[2023-09-05] MEDS ORDERED: LENALIDOMIDE 2.5 MG PO SCH (09:00)
[2023-09-07] MEDS ORDERED: ERGOCALCIFEROL 1,250 MCG (50,000 IU) CAPSULE PO SCH (09:00)
== END 2023-09-04 16:30 | disposition home or self-care (01) ==
LOC: CATHCVL 05:33 → 6NMEDSUR 08:30 → CATHCVL 09-04 16:30
PROVIDERS: ATTEND Internal Medicine Interventional Cardiology
DX: I25.10 Atherosclerotic heart disease of native coronary artery without angina pectoris (principal); N18.6 End stage renal disease; I12.0 Hypertensive chronic kidney disease with stage 5 chronic kidney disease or end stage renal disease; E78.5 Hyperlipidemia, unspecified; C90.00 Multiple myeloma not having achieved remission; K21.9 Gastro-esophageal reflux disease without esophagitis; M19.90 Unspecified osteoarthritis, unspecified site; Z87.442 Personal history of urinary calculi; Z95.5 Presence of coronary angioplasty implant and graft; Z82.3 Family history of stroke; Z83.3 Family history of diabetes mellitus; Z79.624 Long term (current) use of inhibitors of nucleotide synthesis; Z79.899 Other long term (current) drug therapy; Z79.82 Long term (current) use of aspirin
CPT/HCPCS: 94760; 92978; 93458; 80048; C1769 ×4; C9600; C1887; C1894; C1725; C1753; C1874; S0138; J2001; J3010; J1644; Q9967; J2305; 90935

== ENCOUNTER 2023-09-24 11:26 | Inpatient (IN) | payer MEDICARE ==
[2023-09-24 12:27] LABS: Partial Thromboplastin Time 25.4 sec (22.0-30.0); Prothrombin Time 10.7 sec (10.0-12.5)
[2023-09-24 12:30] LABS: ALT 15 U/L (4-49); AST 28 U/L (17-59); African American GFR (CKD) 8 (>60 ml/min/1.73 sqM); Albumin 3.1 g/dL (3.5-5.0); Alkaline Phosphatase 70 U/L (38-126); Anion Gap 11 mmol/L; Blood Urea Nitrogen 77 mg/dL (9-20); Calcium 8.5 mg/dL (8.4-10.2); Carbon Dioxide 23 mmol/L (22-30); Chloride 97 mmol/L (98-107); Glucose 96 mg/dL (74-99); Magnesium 1.4 mg/dL (1.6-2.3); Non-African American GFR(CKD) 7 (>60 ml/min/1.73 sqM); Potassium 4.3 mmol/L (3.5-5.1); Sodium 131 mmol/L (137-145); Total Bilirubin 0.6 mg/dL (0.2-1.3); Total Protein 4.9 g/dL (6.3-8.2)
--- NOTE | 2023-09-24 13:12 | CT ---
EXAMINATION TYPE: CT brain wo con DATE OF EXAM: 09/24/2023 COMPARISON: None HISTORY: difficulty with speech CT DLP: 1095.[address] of the brain was performed. The ventricles, basal cisterns and sulci overlying the cerebral convexities demonstrate mild enlargem ent. There is no evidence for intracranial hemorrhage or sulcal effacement. There is decreased attenuation about the periventricular white matter and deep white matter of both c erebral hemispheres, compatible with chronic small vessel ischemia. Differential diagnosis does inclu de demyelination. No mass effects are seen.No midline shift. Osseous calvarium is intact. If symptoms persist consider MRI. IMPRESSION: 1. Age related atrophic and chronic small vessel ischemic change without acute intracranial process s een at this time.
--- NOTE | 2023-09-24 13:21 | XR ---
EXAMINATION TYPE: XR chest 2V DATE OF EXAM: 09/24/2023 1:14 PM CLINICAL INDICATION:Male, 77 years old with history of Weakness; [facility] COMPARISON: Chest radiographs from 03/30/2018 TECHNIQUE: XR chest 2V Frontal and lateral views of the chest. FINDINGS: Lungs/Pleura: There is no evidence of pleural effusion, focal consolidation, or pneumothorax. Pulmonary vascularity: Unremarkable. Heart/mediastinum: Cardiomediastinal silhouette is unremarkable. Musculoskeletal: No acute osseous pathology. Other findings: None Lines/Tubes: Left internal jugular central venous catheter with distal tip at the cavoatrial junction. IMPRESSION: Small moderate right pleural effusion. Left is appropriate position.
[2023-09-24 13:28] LABS: Anisocytosis Slight; HCT 32.3 % (39.0-53.0); HGB 10.7 gm/dL (13.0-17.5); MCH 35.1 pg (25.0-35.0); MCV 106.4 fL (80.0-100.0); Macrocytosis Marked; Mean Platelet Volume 10.2; Platelet Count 101 k/uL (150-450); RBC 3.04 m/uL (4.30-5.90); RDW 16.9 % (11.5-15.5); WBC 4.5 k/uL (3.8-10.6)
[2023-09-24] MEDS: MAGNESIUM OXIDE 400 MG TAB PO STA (14:00)
[2023-09-24 14:16] LABS: Band Neutrophils % 1 %; Eosinophils # (M) 0.32 k/uL (0-0.7); Lymphocytes # (M) 0.23 k/uL (1.0-4.8); Monocytes # (M) 0.77 k/uL (0-1.0); Neutrophils % (M) 70 %; Nucleated Red Blood Cells 0 /100 WBC (0-0); Total Cells Counted 100
[2023-09-24] MEDS ORDERED: NALOXONE 0.4 MG/ML 1 ML VIAL IV PRN (14:35)
[2023-09-24] MEDS ORDERED: DIPHENOX-ATROP 2.5-0.025 MG 1 EACH TAB PO PRN (14:40)
--- NOTE | 2023-09-24 14:55 | ED ---
General Adult HPI - General Chief complaint: Weakness Time Seen by Provider: 09/24/23 11:58 Source: patient, family, EMS, RN notes reviewed, old records reviewed Mode of arrival: EMS - History of Present Illness Initial comments: Patient is a 77-year-old male who presents emergency department complaining of multiple days of weakness, worse this morning. Patient yesterday did have an episode where he fell onto his knees due to weakness. Awoke this morning more weak, which is general. No focal weakness. May be mild slurred speech and patient's states it seems that his tongue is thick. No other acute complaints at this time. Has a history of ESRD on hemodialysis and missed the [employer] run today. Also history of multiple myeloma on medications. History of hypertension hyperlipidemia. Recently had 1 cardiac stent placed. Denies chest pain, does endorse some shortness of breath and nonproductive cough. Denies abdominal pain, nausea, vomiting. Presents for further evaluation at this time.No falls. Did not hit his head. When he fell to the ground he landed on his knees only and did not injure himself. Ambulates with a walker at home at baseline. - Related Data Home Medications Medication Instructions Recorded Confirmed Omeprazole [PriLOSEC] 20 mg PO DAILY 08/18/16 09/24/23 valACYclovir HCL [Valtrex] 500 mg PO DAILY 08/18/16 09/24/23 Finasteride [Proscar] 5 mg PO HS 03/30/18 09/24/23 Lenalidomide [Revlimid] 2.5 mg PO MOTH 03/30/18 09/24/23 Metoprolol Tartrate [Lopressor] 25 mg PO BID 03/30/18 09/24/23 Pregabalin [Lyrica] 75 mg PO BID 03/30/18 09/24/23 Pro-Renal + Vit D (Unknown) 1 tab PO DAILY 03/30/18 09/24/23 Diphenox-Atrop 2.5-0.025 mg 1 tab PO DAILY PRN 05/21/23 09/24/23 [Lomotil] Ergocalciferol (Vitamin D2) 1,250 mcg PO SA 05/21/23 09/24/23 [Drisdol (50,000 Iu)] Furosemide [Lasix] 80 mg PO BID 05/21/23 09/24/23 Magnesium Oxide [Mag-Ox] 400 mg PO DAILY 05/21/23 09/24/23 Micera 50mcg/0.3ml 50 mcg INJ Q14D 05/21/23 09/24/23 Potassium Chloride ER [K-Dur 20] 20 meq PO HS 05/21/23 09/24/23 Sodium Bicarbonate Tab 650 mg PO BID 05/21/23 09/24/23 Sulfamethox-Tmp 800-160Mg [Bactrim 1 tab PO MOWEFR 05/21/23 09/24/23 DS 800-160 mg] Tamsulosin [Flomax] 0.4 mg PO HS 05/21/23 09/24/23 calcitrioL 0.5 mcg PO DIRECTED 05/21/23 09/24/23 Cyanocobalamin (Vitamin B-12) 1,000 mcg PO DAILY 06/18/23 09/24/23 [Vitamin B-12] Aspirin [Adult Low Dose Aspirin EC] 81 mg PO DAILY 06/24/23 09/24/23 Midodrine [ProAmatine] 10 mg PO Q6H PRN 08/30/23 09/24/23 lisinopriL [Zestril] 10 mg PO BID 08/30/23 09/24/23 metOLazone 5 mg PO BID 08/30/23 09/24/23 Calcium Carb-Magnesium Carb 1 tab PO DIRECTED 09/24/23 09/24/23 250-300mg (Magnebind 300) Calcium Carbonate [Tums] 1,000 mg PO W/BRKFST 09/24/23 09/24/23 Calcium Carbonate [Tums] 3,000 mg PO QID 09/24/23 09/24/23 Rosuvastatin [Crestor] 20 mg PO HS 09/24/23 09/24/23 amLODIPine [Norvasc] 5 mg PO DAILY 09/24/23 09/24/23 Previous Rx's Medication Instructions Recorded Clopidogrel [Plavix] 75 mg PO DAILY #90 tab 09/04/23 Nitroglycerin Sl Tabs [Nitrostat] 0.4 mg SUBLINGUAL Q5M PRN #25 tab 09/04/23 Allergies Allergy/AdvReac Type Severity Reaction Status Date / Time No Known Allergies Allergy Verified 09/24/23 14:20 Review of Systems ROS Statement: Those systems with pertinent positive or pertinent negative responses have been documented in the HPI. Review of Systems: CONST: Denies fever EYES: Denies blurry vision ENT: Denies nasal congestion C/V: Denies Chest pain RESP endorses nonproductive cough GI: Denies abdominal pain : Denies dysuria SKIN: Denies rash. MSK: Denies joint pain. NEURO: Denies headache ROS Other: All systems not noted in ROS Statement are negative. 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 History of Any Multi-Drug Resistant Organisms: None Reported Past Surgical History: Heart Catheterization, Heart Catheterization With Stent Additional Past Surgical History / Comment(s): lithotripsy/laser, fatty tumor removed from right chest, colonoscopy, PERMA cath rt upper chest- removed 2016, hemodialysis cath august-October 27, bilateral cataracts removed, CAPD cath adjustm ent within two weeks of first insertion in 2016 Past Anesthesia/Blood Transfusion Reactions: No Reported Reaction Additional Past Anesthesia/Blood Transfusion Reaction / Comment(s): previous blood transfusion without any reactions Past Psychological History: No Psychological Hx Reported Smoking Status: Never smoker Past Alcohol Use History: Occasional Past Drug Use History: None Reported - Past Family History Sister(s) Family Medical History: Cancer Father Family Medical History: Cancer, Deep Vein Thrombosis (DVT) Mother Family Medical History: Dementia Additional Family Medical History / Comment(s): from alzheimer's Brother(s) Family Medical History: Diabetes Mellitus General Exam - General Exam Comments Initial Comments: General: Appears in no acute distress. HEAD: Normal with no signs of head trauma. EYES: PERRLA, EOMI, conjunctiva normal, no discharge. Pulls 2 mm and equal bilaterally. ENT: Hearing grossly intact, normal oropharynx. RESPIRATORY: Clear breath sounds bilaterally. No wheezes, rales, or rhonchi. C/V: Regular rate and rhythm. S1 and S2 auscultated, no edema, peripheral pulses 2+ and intact throughout ABD: Abd is soft, nontender, nondistended EXT: Normal range of motion, no obvious deformity SKIN: No rashes or lesions observed on exposed skin. NEURO: Alert and oriented x 4. Cranial nerves II through XII are intact. No focal sensory or strength deficits, seems to be diffuse weakness. Possibly very mild dysarthria however seems to be extinguishable. Is not always present. GCS of 15. Is ongoing for multiple days. Course Vital Signs 09/24/23 09/24/23 11:26 13:56 Temperature 97.3 F L Pulse Rate 67 68 Respiratory 22 18 Rate Blood Pressure 141/74 132/75 O2 Sat by Pulse 95 97 Oximetry Procedures - Norco Protocol (Time Out) Nurse: Neha Diaz Medical Decision Making - Medical Decision Making Was pt. sent in by a medical professional or institution (, PA, ECHO TECHNICIAN, urgent care, hospital, or penitentiary...) When possible be specific @ -No Did you speak to anyone other than the patient for history (EMS, parent, family, police, friend...)? What history was obtained from this source @ -Patient's helps with patient's past medical history Did you review nursing and triage notes (agree or disagree)? Why? @ -I reviewed and agree with nursing and triage notes Were old charts reviewed (outside hosp., previous admission, EMS record, old EKG, old radiological studies, urgent care reports/EKG's, penitentiary records)? Report findings @ -Old charts reviewed including previous EKGs from September 08 which showed no acute changes. Differential Diagnosis (chest pain, altered mental status, abdominal pain women, abdominal pain men, vaginal bleeding, weakness, fever, dyspnea, syncope, headache, dizziness, GI bleed, back pain, seizure, CVA, palpatations, mental health, musculoskeletal)? @ -Differential Weakness: Hypoglycemia, shock, sepsis, hyponatremia, anemia, infection, ME, ETOH, adverse medicine reaction, overdose, stroke, this is not meant to be an all-inclusive list. EKG interpreted by me (3pts min.). @ -As above X-rays interpreted by me (1pt min.). @ -X-ray shows right pleural effusion. CT interpreted by me (1pt min.). @ -None done U/S interpreted by me (1pt. min.). @ -None done What testing was considered but not performed or refused? (CT, X-rays, U/S, labs)? Why? @ -None What meds were considered but not given or refused? Why? @ -None Did you discuss the management of the patient with other professionals (professionals i.e. , PA, ECHO TECHNICIAN, lab, RT, psych nurse, social media executive, product distribution specialist, teacher, parking enforcement officer, caser)? Give summary @ -No Was smoking cessation discussed for >3mins.? @ -No Was critical care preformed (if so, how long)? @ -No Were there social determinants of health that impacted care today? How? (Homelessness, low income, unemployed, alcoholism, drug addiction, transportation, low edu. Level, literacy, decrease access to med. care, halfway, rehab)? @ -No Was there de-escalation of care discussed even if they declined (Discuss DNR or withdrawal of care, Hospice)? DNR status @ -No What co-morbidities impacted this encounter? (DM, HTN, Smoking, COPD, CAD, Cancer, CVA, ARF, Chemo, Hep., AIDS, mental health diagnosis, sleep apnea, morbid obesity)? @ -ESRD on hemodialysis, recent cardiac stent. Was patient admitted / discharged? Hospital course, mention meds given and route, prescriptions, significant lab abnormalities, going to OR and other pertinent info. @ -Patient presents emergency department for weakness. We will obtain general workup. Patient did miss dialysis for today. Usually goes Saturday. Patient and family in agreement this plan. Currently asymptomatic other than weakness. Vital signs within acceptable limits. Laboratory studies remarkable for chronic anemia, elevated BUN and creatinine in the setting of ESRD on hemodialysis. Patient has mild hypomagnesemia which is replenished. Troponin is mildly elevated likely secondary to his ESRD at 0.066 and patient has no chest pain. EKG shows no signs of acute ischemia. We will continue to monitor the troponin at this time and cardiology will be consulted. Viral swabs negative. Urinalysis pending. I updated the patient at this time. Chest x-ray shows new right pleural effusion. Likely sources of shortness of breath. We will admit the patient. CT brain showed no obvious acute intracranial process. Pulmonology will be consulted. Cardiology will be consulted. Nephrology will be consulted. Patient was in agreement this plan. I spoke with Dr. Lawrence who accepted the admission. Patient given a dose of aspirin. Patient does have intermittent conversational confusion in the ER and an ammonia was added on. This is still pending at this time. Undiagnosed new problem with uncertain prognosis? @ -No Drug Therapy requiring intensive monitoring for toxicity (Heparin, Nitro, Insulin, Cardizem)? @ -No Were any procedures done? @ -No Diagnosis/symptom? @ -Weakness, right pleural effusion, hypomagnesemia, elevated troponin Acute, or Chronic, or Acute on Chronic? @ -Acute Uncomplicated (without systemic symptoms) or Complicated (systemic symptoms)? @ -Complicated Side effects of treatment? @ -No Exacerbation, Progression, or Severe Exacerbation? @ -No Poses a threat to life or bodily function? How? (Chest pain, USA, ME, pneumonia, PE, COPD, DKA, ARF, appy, cholecystitis, CVA, Diverticulitis, Homicidal, Suicidal, threat to staff... and all critical care pts) @ -Yes - Lab Data Result diagrams: 09/24/23 12:04 09/24/23 12:04 Lab Results 09/24/23 09/24/23 09/24/23 Range/Units 12:04 12:04 12:04 WBC 4.5 (3.8-10.6) k/uL RBC 3.04 L (4.30-5.90) m/uL Hgb 10.7 L (13.0-17.5) gm/dL Hct 32.3 L (39.0-53.0) % MCV 106.4 H (80.0-100.0) fL MCH 35.1 H (25.0-35.0) pg MCHC 33.0 (31.0-37.0) g/dL RDW 16.9 H (11.5-15.5) % Plt Count 101 L (150-450) k/uL MPV 10.2 Neutrophils % (Manual) 70 % Band Neuts % (Manual) 1 % Lymphocytes % (Manual) 5 % Monocytes % (Manual) 17 % Eosinophils % (Manual) 7 % Neutrophils # (Manual) 3.10 (1.3-7.7) k/uL Lymphocytes # (Manual) 0.23 L (1.0-4.8) k/uL Monocytes # (Manual) 0.77 (0-1.0) k/uL Eosinophils # (Manual) 0.32 (0-0.7) k/uL Nucleated RBCs 0 (0-0) /100 WBC Differential Comment P Anisocytosis Slight Macrocytosis Marked A PT 10.7 (10.0-12.5) sec INR 1.0 (<1.2) APTT 25.4 (22.0-30.0) sec Sodium 131 L (137-145) mmol/L Potassium 4.3 (3.5-5.1) mmol/L Chloride 97 L (98-107) mmol/L Carbon Dioxide 23 (22-30) mmol/L Anion Gap 11 mmol/L BUN 77 H (9-20) mg/dL Creatinine 7.38 H* (0.66-1.25) mg/dL Est GFR (CKD-EPI)AfAm 8 (>60 ml/min/1.73 sqM) Est GFR (CKD-EPI)NonAf 7 (>60 ml/min/1.73 sqM) Glucose 96 (74-99) mg/dL Plasma Lactic Acid Nash (0.7-2.0) mmol/L Calcium 8.5 (8.4-10.2) mg/dL Magnesium 1.4 L (1.6-2.3) mg/dL Total Bilirubin 0.6 (0.2-1.3) mg/dL AST 28 (17-59) U/L ALT 15 (4-49) U/L Alkaline Phosphatase 70 (38-126) U/L Troponin I (0.000-0.034) ng/mL Total Protein 4.9 L (6.3-8.2) g/dL Albumin 3.1 L (3.5-5.0) g/dL Influenza Type A (PCR) (Not Detectd) Influenza Type B (PCR) (Not Detectd) RSV (PCR) (Not Detectd) SARS-CoV-2 (PCR) (Not Detectd) 09/24/23 09/24/23 09/24/23 Range/Units 12:04 12:04 12:08 WBC (3.8-10.6) k/uL RBC (4.30-5.90) m/uL Hgb (13.0-17.5) gm/dL Hct (39.0-53.0) % MCV (80.0-100.0) fL MCH (25.0-35.0) pg MCHC (31.0-37.0) g/dL RDW (11.5-15.5) % Plt Count (150-450) k/uL MPV Neutrophils % (Manual) % Band Neuts % (Manual) % Lymphocytes % (Manual) % Monocytes % (Manual) % Eosinophils % (Manual) % Neutrophils # (Manual) (1.3-7.7) k/uL Lymphocytes # (Manual) (1.0-4.8) k/uL Monocytes # (Manual) (0-1.0) k/uL Eosinophils # (Manual) (0-0.7) k/uL Nucleated RBCs (0-0) /100 WBC Differential Comment Anisocytosis Macrocytosis PT (10.0-12.5) sec INR (<1.2) APTT (22.0-30.0) sec Sodium (137-145) mmol/L Potassium (3.5-5.1) mmol/L Chloride (98-107) mmol/L Carbon Dioxide (22-30) mmol/L Anion Gap mmol/L BUN (9-20) mg/dL Creatinine (0.66-1.25) mg/dL Est GFR (CKD-EPI)AfAm (>60 ml/min/1.73 sqM) Est GFR (CKD-EPI)NonAf (>60 ml/min/1.73 sqM) Glucose (74-99) mg/dL Plasma Lactic Acid Nash 0.9 (0.7-2.0) mmol/L Calcium (8.4-10.2) mg/dL Magnesium (1.6-2.3) mg/dL Total Bilirubin (0.2-1.3) mg/dL AST (17-59) U/L ALT (4-49) U/L Alkaline Phosphatase (38-126) U/L Troponin I 0.066 H* (0.000-0.034) ng/mL Total Protein (6.3-8.2) g/dL Albumin (3.5-5.0) g/dL Influenza Type A (PCR) Not Detected (Not Detectd) Influenza Type B (PCR) Not Detected (Not Detectd) RSV (PCR) Not Detected (Not Detectd) SARS-CoV-2 (PCR) Not Detected (Not Detectd) - EKG Data -: EKG Interpreted by Me EKG Comments: 12-lead Electrocardiogram Interpretation Note EKG was reviewed and interpreted by myself. 12-lead ECG performed at 1132 is int erpreted by me as revealing normal sinus rhythm at a rate of 62 beats per minute. Left axis deviation. SD interval is 221 ms, QRS duration is 82 ms, QTc is 414 ms. Degree AV block. There were no ST or T wave abnormalities to suggest myocardial ischemia or injury. R wave progression across the precordium was satisfactory. By my interpretation this EKG is non-diagnostic for acute ischemia. Disposition Clinical Impression: Pleural effusion, Hypomagnesemia, Elevated troponin, Weakness Disposition: ADMITTED IP TO THIS HOSP Condition: Stable Referrals: Fred Lawrence MD [Primary Care Provider] - 1-2 days Time of Disposition: 14:35
[2023-09-24] MEDS: ASPIRIN 81 MG PO STA (15:38)
[2023-09-24] MEDS: FUROSEMIDE 80 MG TAB PO SCH (15:41)
[2023-09-24] MEDS ORDERED: NITROGLYCERIN SL TABS 0.4 MG TAB SUBLINGUAL PRN (16:38)
[2023-09-24] MEDS ORDERED: CALCIUM CARB MAGNESIUM CARB PO SCH (16:45)
[2023-09-24] MEDS ORDERED: CALCITRIOL 0.5 MCG PO SCH (16:45)
[2023-09-24] MEDS: CALCIUM CARBONATE 500 MG CHEWABLE PO SCH (17:39)
[2023-09-24] MEDS: [UNRECOGNIZED DRUG - OTHER] INJ SCH (17:40)
[2023-09-24] MEDS: ATORVASTATIN 40 MG TAB PO SCH (21:37)
[2023-09-24] MEDS: METOPROLOL TARTRATE 25 MG TAB PO SCH (21:38)
[2023-09-24] MEDS: FINASTERIDE 5 MG TAB PO SCH (21:38)
[2023-09-24] MEDS: POTASSIUM CHLORIDE ER 20 MEQ TAB.ER PO SCH (21:46)
[2023-09-24] MEDS: lisinopriL 10 MG TAB PO SCH (21:51)
[2023-09-24] MEDS: HEPARIN SODIUM,PORCINE 5,000 UNIT/ML 1 ML VIAL SQ SCH (21:51)
[2023-09-24] MEDS: metOLazone 5 MG TAB PO SCH (21:53)
[2023-09-24] MEDS: SODIUM BICARBONATE TAB 650 MG TAB PO SCH (22:02)
[2023-09-24] MEDS: TAMSULOSIN 0.4 MG CAP.ER.24H PO SCH (22:03)
[2023-09-24] MEDS: PREGABALIN 75 MG CAP PO SCH (22:04)
--- NOTE | 2023-09-25 02:11 | P.CNPUL ---
History of Present Illness Consult date: 09/25/23 Requesting physician: Eusebio Shaikh Reason for consult: pleural effusion Chief complaint: Generalized weakness, assisted fall History of present illness: Is a 77-year-old white male with past medical history significant for multiple myeloma, end-stage renal disease maintained on hemodialysis (on a Saturday, , Saturday schedule), previously maintained on peritoneal dialysis, hyperlipidemia, hypertension, coronary artery disease with recent stenting, BPH, GERD, among other things. Patient presented to emergency room yesterday morning with a chief complaint of multiple days of generalized weakness and it is progressively worse. Yesterday, the patient attempted to stand up and fell onto his knees. Denies head trauma. No focal deficits. Brain CT on arrival does not show any intracranial hemorrhage or mass effect. Due to his weakness, he did miss his hemodialysis treatment yesterday. Patient is currently in the emergency department, room 4. He is on room air. SpO2 96%. He does endorse some exertional shortness of breath. Denies chest pain. Denies worsening lower extremity swelling. He denies any fevers. He does have an occasional intermittent mild nonproductive cough. No significant sputum production. Denies any nausea, vomiting, diarrhea, abdominal pain. He does have a abdominal peritoneal dialysis catheter. Also has a left subclavian hemodialysis catheter. Chest x-ray done on admission demonstrated a moderate size right pleural effusion. For this reason we are consulted. Of note, patient recently had a heart catheterization done 09/03/2023, he received a stent to the OM1. Denies missing any doses of Plavix or aspirin. He does have multiple myeloma, maintained on Revlimid. His oncologist is reportedly Dr. Whitt. CBC: WBC count 4.5, hemoglobin 10.7, hematocrit 32.3, platelets 101. BMP: Sodium 131, potassium 4.3, chloride 97, serum bicarb 23, BUN 77, creatinine 7.38, glucose 96. Lactic acid level 0.9. LFTs not elevated. Ammonia less than 9. Troponins mildly elevated but flat, 0.066, 0.054, and 0.056 respectively. Negative for influenza, RSV, COVID. Patient denies prior history of pleural effusions or thoracentesis. Afebrile. Hemodynamically stable. Review of Systems REVIEW OF SYSTEMS: CONSTITUTIONAL: Denies any recent significant weight loss or weight gain. EYES: Denies change in vision. EARS, NOSE, MOUTH, THROAT: Denies headaches, denies sore throat. CARDIOVASCULAR: Denies chest pain, palpitations or syncopal episodes. RESPIRATORY: See HPI GASTROINTESTINAL: Denies change in appetite, abdominal pain, nausea and vomiting, or diarrhea GENITOURINARY: Denies hematuria, denies infections. MUSKULOSKELETAL: Denies pain, denies swelling. INTEGUMENTARY: Denies rash, denies eczema. NEUROLOGICAL: Denies recent memory loss, no recent seizure activity. PSYCHIATRIC: Denies anxiety, denies depression. HEMATOLOGIC/LYMPHATIC: Denies anemia, denies enlarged lymph node Past Medical History Past Medical History: Cancer, Dialysis, GERD/Reflux, Hyperlipidemia, Hypertension, Osteoarthritis (OA), Prostate Disorder, Renal Disease Additional Past Medical History / Comment(s): multiple myeloma, enlarged prostate, kidney stones, diverticulosis, hiatal hernia, hemodialysis august-October 2016, CAPD since October 2016-CURRENTLY ON HEMODIALYSIS WAITING FOR NEW PD CATHETER, orthostatic hypotension, neuropathy, leaky mitral valve/weak left vent ricle of heart, pt is on oral CHEMO Revlamid Saturday and . History of Any Multi-Drug Resistant Organisms: None Reported Past Surgical History: Heart Catheterization, Heart Catheterization With Stent Additional Past Surgical History / Comment(s): lithotripsy/laser, fatty tumor removed from right chest, colonoscopy, PERMA cath rt upper chest- removed 2016, hemodialysis cath august-October 27, bilateral cataracts removed, CAPD cath adjustment within two weeks of first insertion in 2016 Past Anesthesia/Blood Transfusion Reactions: No Reported Reaction Additional Past Anesthesia/Blood Transfusion Reaction / Comment(s): previous blood transfusion without any reactions Past Psychological History: No Psychological Hx Reported Smoking Status: Never smoker Past Alcohol Use History: Occasional Past Drug Use History: None Reported - Past Family History Sister(s) Family Medical History: Cancer Father Family Medical History: Cancer, Deep Vein Thrombosis (DVT) Mother Family Medical History: Dementia Additional Family Medical History / Comment(s): from alzheimer's Brother(s) Family Medical History: Diabetes Mellitus Medications and Allergies Home Medications Medication Instructions Recorded Confirmed Type Omeprazole [PriLOSEC] 20 mg PO DAILY 08/18/16 09/24/23 History valACYclovir HCL [Valtrex] 500 mg PO DAILY 08/18/16 09/24/23 History Finasteride [Proscar] 5 mg PO HS 03/30/18 09/24/23 History Lenalidomide [Revlimid] 2.5 mg PO MOTH 03/30/18 09/24/23 History Metoprolol Tartrate [Lopressor] 25 mg PO BID 03/30/18 09/24/23 History Pregabalin [Lyrica] 75 mg PO BID 03/30/18 09/24/23 History Pro-Renal + Vit D (Unknown) 1 tab PO DAILY 03/30/18 09/24/23 History Diphenox-Atrop 2.5-0.025 mg 1 tab PO DAILY PRN 05/21/23 09/24/23 History [Lomotil] Ergocalciferol (Vitamin D2) 1,250 mcg PO SA 05/21/23 09/24/23 History [Drisdol (50,000 Iu)] Furosemide [Lasix] 80 mg PO BID 05/21/23 09/24/23 History Magnesium Oxide [Mag-Ox] 400 mg PO DAILY 05/21/23 09/24/23 History Micera 50mcg/0.3ml 50 mcg INJ Q14D 05/21/23 09/24/23 History Potassium Chloride ER [K-Dur 20] 20 meq PO HS 05/21/23 09/24/23 History Sodium Bicarbonate Tab 650 mg PO BID 05/21/23 09/24/23 History Sulfamethox-Tmp 800-160Mg [Bactrim 1 tab PO MOWEFR 05/21/23 09/24/23 History DS 800-160 mg] Tamsulosin [Flomax] 0.4 mg PO HS 05/21/23 09/24/23 History calcitrioL 0.5 mcg PO DIRECTED 05/21/23 09/24/23 History Cyanocobalamin (Vitamin B-12) 1,000 mcg PO DAILY 06/18/23 09/24/23 History [Vitamin B-12] Aspirin [Adult Low Dose Aspirin EC] 81 mg PO DAILY 06/24/23 09/24/23 History Midodrine [ProAmatine] 10 mg PO Q6H PRN 08/30/23 09/24/23 History lisinopriL [Zestril] 10 mg PO BID 08/30/23 09/24/23 History metOLazone 5 mg PO BID 08/30/23 09/24/23 History Clopidogrel [Plavix] 75 mg PO DAILY #90 tab 09/04/23 09/24/23 Rx Nitroglycerin Sl Tabs [Nitrostat] 0.4 mg SUBLINGUAL Q5M PRN #25 tab 09/04/23 09/24/23 Rx Calcium Carb-Magnesium Carb 1 tab PO DIRECTED 09/24/23 09/24/23 History 250-300mg (Magnebind 300) Calcium Carbonate [Tums] 1,000 mg PO W/BRKFST 09/24/23 09/24/23 History Calcium Carbonate [Tums] 3,000 mg PO QID 09/24/23 09/24/23 History Rosuvastatin [Crestor] 20 mg PO HS 09/24/23 09/24/23 History amLODIPine [Norvasc] 5 mg PO DAILY 09/24/23 09/24/23 History Allergies Allergy/AdvReac Type Severity Reaction Status Date / Time No Known Allergies Allergy Verified 09/24/23 14:20 Physical Exam Vitals: Vital Signs Temp Pulse Resp BP Pulse Ox 09/24/23 22:00 69 16 119/74 96 09/24/23 19:54 80 18 109/67 96 09/24/23 17:53 97.4 F L 09/24/23 17:40 95.9 F L 86 18 140/64 94 L 09/24/23 15:41 80 20 130/75 95 09/24/23 13:56 68 18 132/75 97 09/24/23 11:26 97.3 F L 67 22 141/74 95 Intake and Output 09/24/23 09/24/23 09/25/23 14:59 22:59 06:59 Other: Weight 83.915 kg GENERAL EXAM: Alert, 77-year-old white male, fairly comfortable in no apparent distress. HEAD: Normocephalic and atraumatic EYES: Normal reaction of pupils, equal size. NOSE: Clear with pink turbinates. THROAT: No erythema or exudates. NECK: No masses, no JVD. CHEST: No chest wall deformity. Left subclavian hemodialysis catheter noted. LUNGS: Diminished right basilar lung sounds. No crackles, wheeze, rhonchi or dullness. On room air. No conversational dyspnea or accessory muscle use while at rest CVS: S1 and S2 normal with no audible murmur, regular rhythm. No extra heart sounds ABDOMEN: Obese abdomen, no hepatosplenomegaly, active bowel sounds, no guarding or rigidity. PD catheter noted. Site clean, dry, without drainage. SPINE: No scoliosis or deformity SKIN: No rashes CENTRAL NERVOUS SYSTEM: No focal deficits, tone is normal in all 4 extremities. EXTREMITIES: There is no peripheral edema, clubbing, or cyanosis. Peripheral pulses are intact. Results - Laboratory Findings CBC and BMP: 09/24/23 12:04 09/24/23 12:04 PT/INR, D-dimer PT 10.7 sec (10.0-12.5) 09/24/23 12:04 INR 1.0 (<1.2) 09/24/23 12:04 Abnormal lab findings: Abnormal Labs 09/24/23 09/24/23 09/24/23 12:04 12:04 12:04 RBC 3.04 L Hgb 10.7 L Hct 32.3 L MCV 106.4 H MCH 35.1 H RDW 16.9 H Plt Count 101 L Lymphocytes # (Manual) 0.23 L Macrocytosis Marked A Sodium 131 L Chloride 97 L BUN 77 H Creatinine 7.38 H* Magnesium 1.4 L Troponin I 0.066 H* Total Protein 4.9 L Albumin 3.1 L 09/24/23 09/24/23 15:24 18:25 RBC Hgb Hct MCV MCH RDW Plt Count Lymphocytes # (Manual) Macrocytosis Sodium Chloride BUN Creatinine Magnesium Troponin I 0.054 H* 0.056 H* Total Protein Albumin - Diagnostic Findings Chest x-ray: image reviewed Assessment and Plan Assessment: Exertional dyspnea, chest x-ray demonstrates a new moderate size right-sided pleural effusion. No obvious focal infiltrates or pneumonia. Patient denies prior history of pleural effusions or thoracentesis. Patient did reportedly miss a hemodialysis treatment yesterday. Endorses some mild exertional dyspnea, otherwise asymptomatic. Follow-up chest ultrasound is pending. End-stage renal disease, previously maintained on peritoneal dialysis, transitioned to hemodialysis, on a Saturday, , Saturday schedule. Elevated troponins, rule out an non-ST elevation IA, however, troponins appear flat. Coronary artery disease with recent history of PCI/stenting of the OM1 on 09/03/2023. Denies missing any doses of Plavix or aspirin. No recent available echocardiogram. History of hyperlipidemia History of hypertension History of multiple myeloma, reportedly maintained on Revlimid Anemia of chronic disease, with baseline hemoglobin Chronic thrombocytopenia History of BPH History of GERD without esophagitis Plan: Patient's medications, labs, imaging reviewed Obtain follow-up chest ultrasound with markings. Patient is currently on room air. Does endorse some exertional dyspnea, but otherwise asymptomatic. Case will be discussed with Dr. Moss later this morning. May consider thoracentesis. Not currently on any anticoagulation. In the meantime, patient has been resumed on Lasix 80 mg twice daily. Reportedly not anuric. Order follow-up transthoracic echocardiogram if recent study not available. Cardiology consulted. Nephrology also consulted for management of hemodialysis. Negative for influenza, RSV, COVID. We will continue to follow and further recommendations are forthcoming I have personally seen and examined the patient, performed the documentation and the assessment and plan as written. Number of minutes spent on the visit:20 Time with Patient: Greater than 30
--- NOTE | 2023-09-25 08:15 | US ---
EXAMINATION TYPE: US chest DATE OF EXAM: 09/25/2023 COMPARISON: Xray chest 09/24/23 CLINICAL INDICATION: Male, 77 years old with history of Right-sided pleural effusion; TECHNIQUE: Targeted ultrasound of the posterior lower right hemithorax EXAM MEASUREMENTS: Right Pleural Effusion pocket size: 11.7 cm Right skin surface to fluid distance: 2.4 cm Right side marked for possible thoracentesis outside the dept. Pulmonologists are able to review the images in the patient?s EMR. IMPRESSIONS: Small to moderate right pleural effusion.
--- NOTE | 2023-09-25 08:52 | P.HPIM ---
History of Present Illness H&P Date: 09/24/23 Dean Earl, is a77 year old male who presented to [facility] emergency room with a chief complaint of generalized weakness and fall He was evaluated in the emergency room vital examination on presentation revealed a temperature of 97.3 pulse 67 respiration 22 blood pressure 141/74 pulse ox 95% on room air Laboratory data reveals a white blood count of 4.5 hemoglobin 10.7 platelet count 101 BUN 77 creatinine 7.38 troponin level 0.066 Testing in the emergency room revealed computed tomography scan of the brain revealed chronic small vessel ischemic changes without acute intracranial process, chest x-ray done in the emergency room revealed [id number] right pleural effusion, EKG revealed sinus rhythm with first-degree AV block and left axis deviation Patient was admitted to medical floor for further evaluation and treatment Past medical history is significant for end-stage renal disease on hemodialysis, hypertension, hyperlipidemia, coronary artery disease with history of angioplasty and stent placement, Past Medical History Past Medical History: Cancer, Dialysis, GERD/Reflux, Hyperlipidemia, Hypertension, Osteoarthritis (OA), Prostate Disorder, Renal Disease Additional Past Medical History / Comment(s): multiple myeloma, enlarged prostate, kidney stones, diverticulosis, hiatal hernia, hemodialysis august-October 2016, CAPD since October 2016-CURRENTLY ON HEMODIALYSIS WAITING FOR NEW PD [place] TER, orthostatic hypotension, neuropathy, leaky mitral valve/weak left ventricle of heart, pt is on oral CHEMO Revlamid Saturday and . History of Any Multi-Drug Resistant Organisms: None Reported Past Surgical History: Heart Catheterization, Heart Catheterization With Stent Additional Past Surgical History / Comment(s): lithotripsy/laser, fatty tumor removed from right chest, colonoscopy, PERMA cath rt upper chest- removed 2016, hemodialysis cath august-October 27, bilateral cataracts removed, CAPD cath adjustment within two weeks of first insertion in 2016 Past Anesthesia/Blood Transfusion Reactions: No Reported Reaction Additional Past Anesthesia/Blood Transfusion Reaction / Comment(s): previous blood transfusion without any reactions Past Psychological History: No Psychological Hx Reported Smoking Status: Never smoker Past Alcohol Use History: Occasional Past Drug Use History: None Reported - Past Family History Sister(s) Family Medical History: Cancer Father Family Medical History: Cancer, Deep Vein Thrombosis (DVT) Mother Family Medical History: Dementia Additional Family Medical History / Comment(s): from alzheimer's Brother(s) Family Medical History: Diabetes Mellitus Medications and Allergies Home Medications Medication Instructions Recorded Confirmed Type Omeprazole [PriLOSEC] 20 mg PO DAILY 08/18/16 09/24/23 History valACYclovir HCL [Valtrex] 500 mg PO DAILY 08/18/16 09/24/23 History Finasteride [Proscar] 5 mg PO HS 03/30/18 09/24/23 History Lenalidomide [Revlimid] 2.5 mg PO MOTH 03/30/18 09/24/23 History Metoprolol Tartrate [Lopressor] 25 mg PO BID 03/30/18 09/24/23 History Pregabalin [Lyrica] 75 mg PO BID 03/30/18 09/24/23 History Pro-Renal + Vit D (Unknown) 1 tab PO DAILY 03/30/18 09/24/23 History Diphenox-Atrop 2.5-0.025 mg 1 tab PO DAILY PRN 05/21/23 09/24/23 History [Lomotil] Ergocalciferol (Vitamin D2) 1,250 mcg PO SA 05/21/23 09/24/23 History [Drisdol (50,000 Iu)] Furosemide [Lasix] 80 mg PO BID 05/21/23 09/24/23 History Magnesium Oxide [Mag-Ox] 400 mg PO DAILY 05/21/23 09/24/23 History Micera 50mcg/0.3ml 50 mcg INJ Q14D 05/21/23 09/24/23 History Potassium Chloride ER [K-Dur 20] 20 meq PO HS 05/21/23 09/24/23 History Sodium Bicarbonate Tab 650 mg PO BID 05/21/23 09/24/23 History Sulfamethox-Tmp 800-160Mg [Bactrim 1 tab PO MOWEFR 05/21/23 09/24/23 History DS 800-160 mg] Tamsulosin [Flomax] 0.4 mg PO HS 05/21/23 09/24/23 History calcitrioL 0.5 mcg PO DIRECTED 05/21/23 09/24/23 History Cyanocobalamin (Vitamin B-12) 1,000 mcg PO DAILY 06/18/23 09/24/23 History [Vitamin B-12] Aspirin [Adult Low Dose Aspirin EC] 81 mg PO DAILY 06/24/23 09/24/23 History Midodrine [ProAmatine] 10 mg PO Q6H PRN 08/30/23 09/24/23 History lisinopriL [Zestril] 10 mg PO BID 08/30/23 09/24/23 History metOLazone 5 mg PO BID 08/30/23 09/24/23 History Clopidogrel [Plavix] 75 mg PO DAILY #90 tab 09/04/23 09/24/23 Rx Nitroglycerin Sl Tabs [Nitrostat] 0.4 mg SUBLINGUAL Q5M PRN #25 tab 09/04/23 09/24/23 Rx Calcium Carb-Magnesium Carb 1 tab PO DIRECTED 09/24/23 09/24/23 History 250-300mg (Magnebind 300) Calcium Carbonate [Tums] 1,000 mg PO W/BRKFST 09/24/23 09/24/23 History Calcium Carbonate [Tums] 3,000 mg PO QID 09/24/23 09/24/23 History Rosuvastatin [Crestor] 20 mg PO HS 09/24/23 09/24/23 History amLODIPine [Norvasc] 5 mg PO DAILY 09/24/23 09/24/23 History Allergies Allergy/AdvReac Type Severity Reaction Status Date / Time No Known Allergies Allergy Verified 09/24/23 14:20 Physical Exam Vitals: Vital Signs Temp Pulse Resp BP Pulse Ox 09/24/23 15:41 80 20 130/75 95 09/24/23 13:56 68 18 132/75 97 09/24/23 11:26 97.3 F L 67 22 141/74 95 Intake and Output 09/24/23 09/24/23 09/24/23 06:59 14:59 22:59 Other: Weight 83.915 kg In general patient is alert and oriented x 3 in no distress HEENT head normocephalic and atraumatic Neck is supple no JVD no goiter no lymphadenopathy no carotid bruit Chest examination is clear to auscultation no crackles no wheezing Cardiac exam reveals regular heart sounds S1 and S2 no gallops no murmurs Abdomen is soft nontender no organomegaly with normal bowel sounds Extremity exam reveals no edema no cyanosis or clubbing Neurological examination reveals no gross focal deficits Results CBC & Chem 7: 09/24/23 12:04 09/24/23 12:04 Labs: Abnormal Lab Results - Last 24 Hours (Table) 09/24/23 09/24/23 09/24/23 Range/Units 12:04 12:04 12:04 RBC 3.04 L (4.30-5.90) m/uL Hgb 10.7 L (13.0-17.5) gm/dL Hct 32.3 L (39.0-53.0) % MCV 106.4 H (80.0-100.0) fL MCH 35.1 H (25.0-35.0) pg RDW 16.9 H (11.5-15.5) % Plt Count 101 L (150-450) k/uL Lymphocytes # (Manual) 0.23 L (1.0-4.8) k/uL Macrocytosis Marked A Sodium 131 L (137-145) mmol/L Chloride 97 L (98-107) mmol/L BUN 77 H (9-20) mg/dL Creatinine 7.38 H* (0.66-1.25) mg/dL Magnesium 1.4 L (1.6-2.3) mg/dL Troponin I 0.066 H* (0.000-0.034) ng/mL Total Protein 4.9 L (6.3-8.2) g/dL Albumin 3.1 L (3.5-5.0) g/dL Assessment and Plan Plan: generalized weakness Fall with bilateral knee injury right pleural effusion Elevated troponin level Underlying history of hypertension Underlying history of hyperlipidemia Underlying history of coronary artery disease with history of stent placement Underlying history of end-stage renal disease on hemodialysis at this time patient will be admitted to medical floor home medications reviewed and reordered Cardiology pulmonary and nephrology consultations initiated in the emergency ro om Will follow closely
[2023-09-25] MEDS: PANTOPRAZOLE 40 MG TABLET PO SCH (09:22)
[2023-09-25] MEDS: ASPIRIN 81 MG PO SCH (09:23)
[2023-09-25] MEDS: CALCIUM CARBONATE 500 MG CHEWABLE PO SCH (09:25)
--- NOTE | 2023-09-25 10:23 | P.PN ---
Subjective Progress Note Date: 09/25/23 Dean Earl, is a77 year old male who presented to [facility] emergency room with a chief complaint of generalized weakness and fall He was evaluated in the emergency room vital examination on presentation revealed a temperature of 97.3 pulse 67 respiration 22 blood pressure 141/74 pu lse ox 95% on room air Laboratory data reveals a white blood count of 4.5 hemoglobin 10.7 platelet c ount 101 BUN 77 creatinine 7.38 troponin level 0.066 Testing in the emergency room revealed computed tomography scan of the brain revealed chronic small vessel ischemic changes without acute intracranial process, chest x-ray done in the emergency room revealed [id number] right pleural effusion, EKG revealed sinus rhythm with first-degree AV block and left axis deviation Patient was admitted to medical floor for further evaluation and treatment Past medical history is significant for end-stage renal disease on hemodialysis, hypertension, hyperlipidemia, coronary artery disease with history of angioplasty and stent placement, On 09/25/2023 patient is resting comfortably in bed at bedside. Possible thoracentesis today per pulmonary. Neurology services have been consulted for o ngoing confusion. Patient also to get hemodialysis today per nephrology services. Current vital signs temp 98.2, heart 77, respiratory rate 20, blood pressure 143/80 with pulse ox 96% on room air Objective - Vital Signs Vital signs: Vital Signs Temp 98.2 F 09/25/23 07:46 Pulse 77 09/25/23 07:46 Resp 20 09/25/23 07:46 BP 143/80 09/25/23 07:46 Pulse Ox 96 09/25/23 07:46 FiO2 Intake & Output 09/24/23 09/25/23 09/25/23 18:59 06:59 18:59 Weight 83.915 kg - Exam In general patient is alert and oriented x 3 in no distress HEENT head normocephalic and atraumatic Neck is supple no JVD no goiter no lymphadenopathy no carotid bruit Chest examination is clear to auscultation no crackles no wheezing Cardiac exam reveals regular heart sounds S1 and S2 no gallops no murmurs Abdomen is soft nontender no organomegaly with normal bowel sounds Extremity exam reveals no edema no cyanosis or clubbing Neurological examination reveals no gross focal deficits - Labs CBC & Chem 7: 09/24/23 12:04 09/24/23 12:04 Labs: Abnormal Lab Results - Last 24 Hours (Table) 09/24/23 09/24/23 09/24/23 Range/Units 12:04 12:04 12:04 RBC 3.04 L (4.30-5.90) m/uL Hgb 10.7 L (13.0-17.5) gm/dL Hct 32.3 L (39.0-53.0) % MCV 106.4 H (80.0-100.0) fL MCH 35.1 H (25.0-35.0) pg RDW 16.9 H (11.5-15.5) % Plt Count 101 L (150-450) k/uL Lymphocytes # (Manual) 0.23 L (1.0-4.8) k/uL Macrocytosis Marked A Sodium 131 L (137-145) mmol/L Chloride 97 L (98-107) mmol/L BUN 77 H (9-20) mg/dL Creatinine 7.38 H* (0.66-1.25) mg/dL Magnesium 1.4 L (1.6-2.3) mg/dL Troponin I 0.066 H* (0.000-0.034) ng/mL Total Protein 4.9 L (6.3-8.2) g/dL Albumin 3.1 L (3.5-5.0) g/dL 09/24/23 09/24/23 Range/Units 15:24 18:25 RBC (4.30-5.90) m/uL Hgb (13.0-17.5) gm/dL Hct (39.0-53.0) % MCV (80.0-100.0) fL MCH (25.0-35.0) pg RDW (11.5-15.5) % Plt Count (150-450) k/uL Lymphocytes # (Manual) (1.0-4.8) k/uL Macrocytosis Sodium (137-145) mmol/L Chloride (98-107) mmol/L BUN (9-20) mg/dL Creatinine (0.66-1.25) mg/dL Magnesium (1.6-2.3) mg/dL Troponin I 0.054 H* 0.056 H* (0.000-0.034) ng/mL Total Protein (6.3-8.2) g/dL Albumin (3.5-5.0) g/dL Assessment and Plan Plan: generalized weakness Fall with bilateral knee injury right pleural effusion Elevated troponin level Underlying history of hypertension Underlying history of hyperlipidemia Underlying history of coronary artery disease with history of stent placement Underlying history of end-stage renal disease on hemodialysis History of multiple myeloma at this time patient will be admitted to medical floor home medications reviewed and reordered Cardiology pulmonary and nephrology consultations initiated in the emergency room Will follow closely
--- NOTE | 2023-09-25 10:39 | P.CRDCN ---
History of Present Illness History of present illness: HISTORY OF PRESENT ILLNESS: This is a 77-year-old male with a past medical history significant for coronary artery disease, hypertension, hyperlipidemia, chronic kidney disease on hemodia lysis, and multiple myeloma currently on oral chemotherapy. Patient follows in the office with Dr. Singleton. We have been asked to see the patient in consultation for elevated troponins. Patient examined at the bedside in the emergency room. Patient presented to the hospital for chief complaint of ge neralized weakness. Patient currently denies any chest pain or pressure. He denies any shortness of breath. Vital signs are stable. DIAGNOSTICS: - EKG reveals sinus mechanism with first-degree AV block. No signs of acute ischemia.. - Chest xray small to moderate right pleural effusion. -CT brain: Age-related atrophic and chronic small vessel ischemic changes without acute intracranial process seen. - Laboratory data: - Current home cardiac medications include aspirin 81 mg daily, midodrine 10 mg every 6 hours as needed, metolazone 5 mg twice a day, lisinopril 10 mg twice a day, metoprolol tartrate 25 mg twice a day, rosuvastatin 20 mg at night, Plavix 75 mg daily, amlodipine 5 mg daily - Most recent echocardiogram obtained in January 2023 revealed normal EF and moderate MR - Cardiac catheterization history: September 03, 2023 with stenting to the proximal OM1 REVIEW OF SYSTEMS: At the time of my exam: CONSTITUTIONAL: Denies fever or chills. HEENT: Denies blurred vision, vision changes, or eye pain. Denies hemoptysis CARDIOVASCULAR: Denies chest pain. Denies orthopnea. Denies PND. Denies palpitations RESPIRATORY: Denies shortness of breath. GASTROINTESTINAL: Denies abdominal pain. Denies nausea or vomiting. HEMATOLOGIC: Denies bleeding disorders. GENITOURINARY: Denies any blood in urine. SKIN: Denies pruitis. Denies rash. PHYSICAL EXAM: VITAL SIGNS: Reviewed. GENERAL: Well-developed in no acute distress. HEENT: Head is normocephalic. Pupils are equal, round. Sclerae anicteric. Mucous membranes of the mouth are moist. Neck supple. No JVD or thyromegaly LUNGS: Respirations even and unlabored. Lungs essentially clear to auscultation bilaterally, diminished. HEART: Regular rate and rhythm. S1 and S2 heard. Systolic murmur noted ABDOMEN: Soft. Nondistended. Nontender. EXTREMITIES: Normal range of motion. No clubbing or cyanosis. Peripheral pulses intact. No lower extremity edema NEUROLOGIC: Awake and alert. ASSESSMENT: Generalized weakness Moderate right-sided pleural effusion Coronary artery disease with recent stenting of OM1, 09/03/2023 End-stage renal disease on hemodialysis, Saturday Abnormal troponins, flat, secondary to end-stage renal disease, no evidence of acute coronary syndrome Multiple myeloma, currently on oral chemotherapy Hypertension Hyperlipidemia Bicytopenia, thrombocytopenia and anemia Hypomagnesemia PLAN: 2D echo has been ordered. Await results. Continue dual antiplatelet therapy with aspirin and Plavix secondary to recent stenting Resume additional home cardiac medications Pulmonary has been consulted for further evaluation. Possible thoracentesis. Hemodialysis per nephrology Further recommendations pending patient course Nurse practitioner note has been reviewed by physician. Signing provider agrees with the documented findings, assessment, and plan of care documented by CASING SOAKER as a scribe. Past Medical History Past Medical History: Cancer, Dialysis, GERD/Reflux, Hyperlipidemia, Hypertension, Osteoarthritis (OA), Prostate Disorder, Renal Disease Additional Past Medical History / Comment(s): multiple myeloma, enlarged prost ate, kidney stones, diverticulosis, hiatal hernia, hemodialysis august-October 2016, CAPD since October 2016-CURRENTLY ON HEMODIALYSIS WAITING FOR NEW PD CATHETER, orthostatic hypotension, neuropathy, leaky mitral valve/weak left ventricle of heart, pt is on oral CHEMO Revlamid Saturday and . History of Any Multi-Drug Resistant Organisms: None Reported Past Surgical History: Heart Catheterization, Heart Catheterization With Stent Additional Past Surgical History / Comment(s): lithotripsy/laser, fatty tumor removed from right chest, colonoscopy, PERMA cath rt upper chest- removed 2016, hemodialysis cath august-October 27, bilateral cataracts removed, CAPD cath adjustment within two weeks of first insertion in 2016 Past Anesthesia/Blood Transfusion Reactions: No Reported Reaction Additional Past Anesthesia/Blood Transfusion Reaction / Comment(s): previous blood transfusion without any reactions Past Psychological History: No Psychological Hx Reported Smoking Status: Never smoker Past Alcohol Use History: Occasional Past Drug Use History: None Reported - Past Family History Sister(s) Family Medical History: Cancer Father Family Medical History: Cancer, Deep Vein Thrombosis (DVT) Mother Family Medical History: Dementia Additional Family Medical History / Comment(s): from alzheimer's Brother(s) Family Medical History: Diabetes Mellitus Medications and Allergies Home Medications Medication Instructions Recorded Confirmed Type Omeprazole [PriLOSEC] 20 mg PO DAILY 08/18/16 09/24/23 History valACYclovir HCL [Valtrex] 500 mg PO DAILY 08/18/16 09/24/23 History Finasteride [Proscar] 5 mg PO HS 03/30/18 09/24/23 History Lenalidomide [Revlimid] 2.5 mg PO MOTH 03/30/18 09/24/23 History Metoprolol Tartrate [Lopressor] 25 mg PO BID 03/30/18 09/24/23 History Pregabalin [Lyrica] 75 mg PO BID 03/30/18 09/24/23 History Pro-Renal + Vit D (Unknown) 1 tab PO DAILY 03/30/18 09/24/23 History Diphenox-Atrop 2.5-0.025 mg 1 tab PO DAILY PRN 05/21/23 09/24/23 History [Lomotil] Ergocalciferol (Vitamin D2) 1,250 mcg PO SA 05/21/23 09/24/23 History [Drisdol (50,000 Iu)] Furosemide [Lasix] 80 mg PO BID 05/21/23 09/24/23 History Magnesium Oxide [Mag-Ox] 400 mg PO DAILY 05/21/23 09/24/23 History Micera 50mcg/0.3ml 50 mcg INJ Q14D 05/21/23 09/24/23 History Potassium Chloride ER [K-Dur 20] 20 meq PO HS 05/21/23 09/24/23 History Sodium Bicarbonate Tab 650 mg PO BID 05/21/23 09/24/23 History Sulfamethox-Tmp 800-160Mg [Bactrim 1 tab PO MOWEFR 05/21/23 09/24/23 History DS 800-160 mg] Tamsulosin [Flomax] 0.4 mg PO HS 05/21/23 09/24/23 History calcitrioL 0.5 mcg PO DIRECTED 05/21/23 09/24/23 History Cyanocobalamin (Vitamin B-12) 1,000 mcg PO DAILY 06/18/23 09/24/23 History [Vitamin B-12] Aspirin [Adult Low Dose Aspirin EC] 81 mg PO DAILY 06/24/23 09/24/23 History Midodrine [ProAmatine] 10 mg PO Q6H PRN 08/30/23 09/24/23 History lisinopriL [Zestril] 10 mg PO BID 08/30/23 09/24/23 History metOLazone 5 mg PO BID 08/30/23 09/24/23 History Clopidogrel [Plavix] 75 mg PO DAILY #90 tab 09/04/23 09/24/23 Rx Nitroglycerin Sl Tabs [Nitrostat] 0.4 mg SUBLINGUAL Q5M PRN #25 tab 09/04/23 09/24/23 Rx Calcium Carb-Magnesium Carb 1 tab PO DIRECTED 09/24/23 09/24/23 History 250-300mg (Magnebind 300) Calcium Carbonate [Tums] 1,000 mg PO W/BRKFST 09/24/23 09/24/23 History Calcium Carbonate [Tums] 3,000 mg PO QID 09/24/23 09/24/23 History Rosuvastatin [Crestor] 20 mg PO HS 09/24/23 09/24/23 History amLODIPine [Norvasc] 5 mg PO DAILY 09/24/23 09/24/23 History Allergies Allergy/AdvReac Type Severity Reaction Status Date / Time No Known Allergies Allergy Verified 09/24/23 14:20 Physical Exam Vitals: Vital Signs Temp Pulse Resp BP Pulse Ox 09/25/23 07:46 98.2 F 77 20 143/80 96 09/25/23 07:00 78 20 143/80 96 09/25/23 05:53 67 18 145/80 98 09/25/23 04:11 73 18 138/80 95 09/25/23 01:57 71 16 116/66 95 09/24/23 22:00 69 16 119/74 96 09/24/23 19:54 80 18 109/67 96 09/24/23 17:53 97.4 F L 09/24/23 17:40 95.9 F L 86 18 140/64 94 L 09/24/23 15:41 80 20 130/75 95 09/24/23 13:56 68 18 132/75 97 09/24/23 11:26 97.3 F L 67 22 141/74 95 Results 09/24/23 12:04 09/24/23 12:04 Cardiac Enzymes 09/24/23 09/24/23 09/24/23 Range/Units 12:04 12:04 15:24 AST 28 (17-59) U/L Troponin I 0.066 H* 0.054 H* (0.000-0.034) ng/mL 09/24/23 Range/Units 18:25 AST (17-59) U/L Troponin I 0.056 H* (0.000-0.034) ng/mL Coagulation 09/24/23 Range/Units 12:04 PT 10.7 (10.0-12.5) sec APTT 25.4 (22.0-30.0) sec CBC 09/24/23 Range/Units 12:04 WBC 4.5 (3.8-10.6) k/uL RBC 3.04 L (4.30-5.90) m/uL Hgb 10.7 L (13.0-17.5) gm/dL Hct 32.3 L (39.0-53.0) % Plt Count 101 L (150-450) k/uL Comprehensive Metabolic Panel 09/24/23 Range/Units 12:04 Sodium 131 L (137-145) mmol/L Potassium 4.3 (3.5-5.1) mmol/L Chloride 97 L (98-107) mmol/L Carbon Dioxide 23 (22-30) mmol/L BUN 77 H (9-20) mg/dL Creatinine 7.38 H* (0.66-1.25) mg/dL Glucose 96 (74-99) mg/dL Calcium 8.5 (8.4-10.2) mg/dL AST 28 (17-59) U/L ALT 15 (4-49) U/L Alkaline Phosphatase 70 (38-126) U/L Total Protein 4.9 L (6.3-8.2) g/dL Albumin 3.1 L (3.5-5.0) g/dL Current Medications Generic Name Dose Route Start Last Admin Trade Name Freq PRN Reason Stop Dose Admin Amlodipine Besylate 5 mg 09/25/23 09:00 Amlodipine 5 Mg Tab PO DAILY [facility] Aspirin 81 mg 09/25/23 09:00 Aspirin 81 Mg PO DAILY [facility] Atorvastatin Calcium 40 mg 09/24/23 21:00 09/24/23 21:37 Atorvastatin 40 Mg Tab PO 40 mg HS LAURE Administration Calcium Carbonate/Glycine 3,000 mg 09/24/23 17:30 09/24/23 21:42 Calcium Carbonate 500 Mg Chewable PO 3,000 mg ACHS LAURE Administration Calcium Carbonate/Glycine 1,000 mg 09/25/23 07:30 Calcium Carbonate 500 Mg Chewable PO W/BRKFST LAURE Clopidogrel Bisulfate 75 mg 09/25/23 09:00 Clopidogrel 75 Mg Tab PO DAILY [facility] Cyanocobalamin 1,000 mcg 09/25/23 09:00 Cyanocobalamin 500 Mcg Tab PO DAILY [facility] Diphenoxylate HCl/Atropine 1 each 09/24/23 14:40 Diphenox-Atrop 2.5-0.025 Mg 1 Each Tab PO DAILY PRN Diarrhea Ergocalciferol 1,250 mcg 09/28/23 09:00 Ergocalciferol 1,250 Mcg (50,000 Iu) Capsule PO SA [facility] Finasteride 5 mg 09/24/23 21:00 09/24/23 21:38 Finasteride 5 Mg Tab PO 5 mg HS [facility] Administration Furosemide 80 mg 09/24/23 16:00 09/24/23 15:41 Furosemide 80 Mg Tab PO 80 mg BID@0900,1600 LAURE Administration Heparin Sodium (Porcine) 5,000 unit 09/24/23 21:00 09/24/23 21:51 Heparin Sodium,Porcine 5,000 Unit/Ml 1 Ml Vial SQ 5,000 unit Q12HR LAURE Administration Lisinopril 10 mg 09/24/23 21:00 09/24/23 21:51 Lisinopril 10 Mg Tab PO 10 mg BID LA[facility] Administration Magnesium Oxide 400 mg 09/25/23 09:00 Magnesium Oxide 400 Mg Tab PO DAILY [facility] Metolazone 5 mg 09/24/23 21:00 09/24/23 21:53 Metolazone 5 Mg Tab PO 5 mg BID LA[facility] Administration Metoprolol Tartrate 25 mg 09/24/23 21:00 09/24/23 21:38 Metoprolol Tartrate 25 Mg Tab PO 25 mg BID [facility] Administration Midodrine 10 mg 09/24/23 14:40 Midodrine 5 Mg Tab PO Q6H PRN if BP less than 110 Multivit/Ca Carb/B Cmplx/FA/Prenat 1 each 09/25/23 09:00 Folic Acid-Vit B Complex-Vit C 1 Cap PO DAILY [facility] Naloxone HCl 0.2 mg 09/24/23 14:35 Naloxone 0.4 Mg/Ml 1 Ml Vial IV Q2M PRN Opioid Reversal Nitroglycerin 0.4 mg 09/24/23 16:38 Nitroglycerin Sl Tabs 0.4 Mg Tab SUBLINGUAL Q5M PRN Chest Pain Lenalidomide [ 2.5 mg 09/26/23 09:00 Revlimid] 2.5 Mg PO Capsule MOTH [facility] Non-Formulary Medication 50 mcg 09/24/23 16:45 09/24/23 17:40 Micera 50mcg/0.3ml INJ Not Given Q14D [facility] Pantoprazole Sodium 40 mg 09/25/23 07:30 Pantoprazole 40 Mg Tablet PO DAILY@0730 [facility] Potassium Chloride 20 meq 09/24/23 21:00 09/24/23 21:46 Potassium Chloride Er 20 Meq Tab.Er PO 20 meq HS LAURE Administration Pregabalin 75 mg 09/24/23 21:00 09/24/23 22:04 Pregabalin 75 Mg Cap PO 75 mg BID LA[facility] Administration Sodium Bicarbonate 650 mg 09/24/23 21:00 09/24/23 22:02 Sodium Bicarbonate Tab 650 Mg Tab PO 650 mg BID [facility] Administration Tamsulosin HCl 0.4 mg 09/24/23 21:00 09/24/23 22:03 Tamsulosin 0.4 Mg Cap.Er.24h PO 0.4 mg HS [facility]URE Administration Trimethoprim/Sulfamethoxazole 1 each 09/25/23 09:00 Sulfamethox-Tmp 800-160mg 1 Each Tab PO MOWEFR [facility] Protocol Valacyclovir HCl 500 mg 09/25/23 09:00 Valacyclovir Hcl 500 Mg Tab PO DAILY [facility] Protocol 09/24/23 12:04 09/24/23 12:04
[2023-09-25] MEDS: amLODIPine 5 MG TAB PO SCH (10:45)
[2023-09-25] MEDS: CLOPIDOGREL 75 MG TAB PO SCH (10:45)
[2023-09-25] MEDS: CYANOCOBALAMIN 500 MCG TAB PO SCH (10:46)
[2023-09-25] MEDS: FOLIC ACID-VIT B COMPLEX-VIT C 1 CAP PO SCH (10:47)
[2023-09-25] MEDS: MAGNESIUM OXIDE 400 MG TAB PO SCH (10:50)
[2023-09-25] MEDS: SULFAMETHOX-TMP 800-160MG 1 EACH TAB PO SCH (10:55)
[2023-09-25] MEDS: valACYclovir HCL 500 MG TAB PO SCH (10:55)
--- NOTE | 2023-09-25 11:32 | CA ---
Transthoracic Echo Report Name: Dean Earl Age: 77 Gender: M : 1945 Exam Date: 09/25/2023 08:17 Exam Location: [facility] Ht (in): 68 Wt (lb): 185 Ordering Physician: Stoney Costa Attending/Referring Phys: Computer Help Desk Representative Nya Renee RDCS Procedure CPT: Indications: evaluate LV function Cardiac Hx: Technical Quality: Good Contrast 1: Total Dose (mL): Contrast 2: Total Dose (mL): MEASUREMENTS (Male / Female) Normal Values 2D ECHO LV Diastolic Diameter PLAX 4.4 cm 4.2 - 5.9 / 3.9 - 5.3 cm LV Systolic Diameter PLAX 3.3 cm IVS Diastolic Thickness 1.3 cm 0.6 - 1.0 / 0.6 - 0.9 cm LVPW Diastolic Thickness 1.3 cm 0.6 - 1.0 / 0.6 - 0.9 cm LV Relative Wall Thickness 0.6 RV Internal Dim ED PLAX 3.3 cm LA Systolic Diameter LX 3.9 cm 3.0 - 4.0 / 2.7 - 3.8 cm LV Diastolic Volume MOD BP 73.6 cm??? 67 - 155 / 56 - 104 cm??? LV Systolic Volume MOD BP 39.3 cm??? 22 - 58 / 19 - 49 cm??? LV Ejection Fraction MOD BP 46.6 % >= 55 % LV Cardiac Index MOD BP 1117.8 cm???/min???m??? LV Diastolic Volume MOD 4C 94.3 cm??? LV Systolic Volume MOD 4C 48.5 cm??? LV Ejection Fraction MOD 4C 48.5 % LV Cardiac Index MOD 4C 1491.2 cm???/min???m??? LV Diastolic Length 4C 7.2 cm LV Systolic Length 4C 6.1 cm LV Diastolic Volume MOD 2C 55.8 cm??? LV Systolic Volume MOD 2C 27.2 cm??? LV Ejection Fraction MOD 2C 51.3 % LV Cardiac Index MOD 2C 932.6 cm???/min???m??? LV Diastolic Length 2C 7.6 cm LV Systolic Length 2C 5.2 cm LA Volume 65.8 cm??? 18 - 58 / 22 - 52 cm??? LA Volume Index 32.5 cm???/m??? 16 - 28 cm???/m??? M-MODE Aortic Root Diameter MM 3.4 cm MV E Point Septal Separation 2.0 cm AV Cusp Separation MM 1.7 cm DOPPLER AV Peak Velocity 147.3 cm/s AV Peak Gradient 8.7 mmHg MV Area PHT 3.7 cm??? Mitral E Point Velocity 71.5 cm/s Mitral A Point Velocity 111.5 cm/s Mitral E to A Ratio 0.6 MV Deceleration Time 206.6 ms TR Peak Velocity 184.5 cm/s TR Peak Gradient 13.6 mmHg Right Ventricular Systolic Press 18.6 mmHg FINDINGS Left Ventricle Left ventricular ejection fraction is estimated at 45- 50 %. Left ventricular cavity size normal. Mildly increased left ventricular wall thickness. . Mildly decreased left ventricular ejection fraction. No clear evidence of segmental wall motion abnormality Right Ventricle Mild right ventricular dilatation. Right ventricular systolic pressure within normal limits. Right Atrium Normal right atrial size. Left Atrium Mildly increased left atrial volume. Mildly increased left atrial area. Mitral Valve Structurally normal mitral valve. No mitral stenosis, or prolapse.mitral annular calcification. Mild mitral regurgitation. Aortic Valve Trileaflet aortic valve. No aortic valve stenosis or regurgitation. Tricuspid Valve Structurally normal tricuspid valve. Mild tricuspid regurgitation. Pulmonic Valve Structurally normal pulmonic valve. Trace pulmonic regurgitation. Pericardium No pericardial effusion. pleural effusion Aorta Normal size aortic root and proximal ascending aorta. CONCLUSIONS 1. Mildly impaired low medical systolic function with global hypokinesis 2. Mild mitral and tricuspid regurgitation Previewed by: Dr. Latoya Singleton MD (Electronically Signed) Final Date: 25 Sep 2023 11:31
--- NOTE | 2023-09-25 12:50 | P.NPCON ---
History of Present Illness - Reason for Consult end stage renal disease - History of Present Illness patient is a 77-year-old male with history of end-stage renal disease maintained on hemodialysis on a Saturday schedule. Patient is admitted to the hospital with complaints of confusion per . He was also extremely weak and fell at home. Patient's denies any history of fever or chills. Initial computed tomography scan of the head was negative. Patient missed his hemodialysis yesterday. No history of nausea vomiting abdominal pain or diarrhea. neurology has been consulted. Review of Systems as per HPI Past Medical History Past Medical History: Cancer, Dialysis, GERD/Reflux, Hyperlipidemia, Hypertension, Osteoarthritis (OA), Prostate Disorder, Renal Disease Additional Past Medical History / Comment(s): multiple myeloma, enlarged prostate, kidney stones, diverticulosis, hiatal hernia, hemodialysis august-October 2016, CAPD since October 2016-CURRENTLY ON HEMODIALYSIS WAITING FOR NEW PD CATHETER, orthostatic hypotension, neuropathy, leaky mitral valve/weak left ventricle of heart, pt is on oral CHEMO Revlamid Saturday and . History of Any Multi-Drug Resistant Organisms: None Reported Past Surgical History: Heart Catheterization, Heart Catheterization With Stent Additional Past Surgical History / Comment(s): lithotripsy/laser, fatty tumor removed from right chest, colonoscopy, PERMA cath rt upper chest- removed 2016, hemodialysis cath august-October 27, bilateral cataracts removed, CAPD cath adj ustment within two weeks of first insertion in 2016 Past Anesthesia/Blood Transfusion Reactions: No Reported Reaction Additional Past Anesthesia/Blood Transfusion Reaction / Comment(s): previous blood transfusion without any reactions Past Psychological History: No Psychological Hx Reported Smoking Status: Never smoker Past Alcohol Use History: Occasional Past Drug Use History: None Reported - Past Family History Sister(s) Family Medical History: Cancer Father Family Medical History: Cancer, Deep Vein Thrombosis (DVT) Mother Family Medical History: Dementia Additional Family Medical History / Comment(s): from alzheimer's Brother(s) Family Medical History: Diabetes Mellitus Medications and Allergies Home Medications Medication Instructions Recorded Confirmed Type Omeprazole [PriLOSEC] 20 mg PO DAILY 08/18/16 09/24/23 History valACYclovir HCL [Valtrex] 500 mg PO DAILY 08/18/16 09/24/23 History Finasteride [Proscar] 5 mg PO HS 03/30/18 09/24/23 History Lenalidomide [Revlimid] 2.5 mg PO MOTH 03/30/18 09/24/23 History Metoprolol Tartrate [Lopressor] 25 mg PO BID 03/30/18 09/24/23 History Pregabalin [Lyrica] 75 mg PO BID 03/30/18 09/24/23 History Pro-Renal + Vit D (Unknown) 1 tab PO DAILY 03/30/18 09/24/23 History Diphenox-Atrop 2.5-0.025 mg 1 tab PO DAILY PRN 05/21/23 09/24/23 History [Lomotil] Ergocalciferol (Vitamin D2) 1,250 mcg PO SA 05/21/23 09/24/23 History [Drisdol (50,000 Iu)] Furosemide [Lasix] 80 mg PO BID 05/21/23 09/24/23 History Magnesium Oxide [Mag-Ox] 400 mg PO DAILY 05/21/23 09/24/23 History Micera 50mcg/0.3ml 50 mcg INJ Q14D 05/21/23 09/24/23 History Potassium Chloride ER [K-Dur 20] 20 meq PO HS 05/21/23 09/24/23 History Sodium Bicarbonate Tab 650 mg PO BID 05/21/23 09/24/23 History Sulfamethox-Tmp 800-160Mg [Bactrim 1 tab PO MOWEFR 05/21/23 09/24/23 History DS 800-160 mg] Tamsulosin [Flomax] 0.4 mg PO HS 05/21/23 09/24/23 History calcitrioL 0.5 mcg PO DIRECTED 05/21/23 09/24/23 History Cyanocobalamin (Vitamin B-12) 1,000 mcg PO DAILY 06/18/23 09/24/23 History [Vitamin B-12] Aspirin [Adult Low Dose Aspirin EC] 81 mg PO DAILY 06/24/23 09/24/23 History Midodrine [ProAmatine] 10 mg PO Q6H PRN 08/30/23 09/24/23 History lisinopriL [Zestril] 10 mg PO BID 08/30/23 09/24/23 History metOLazone 5 mg PO BID 08/30/23 09/24/23 History Clopidogrel [Plavix] 75 mg PO DAILY #90 tab 09/04/23 09/24/23 Rx Nitroglycerin Sl Tabs [Nitrostat] 0.4 mg SUBLINGUAL Q5M PRN #25 tab 09/04/23 09/24/23 Rx Calcium Carb-Magnesium Carb 1 tab PO DIRECTED 09/24/23 09/24/23 History 250-300mg (Magnebind 300) Calcium Carbonate [Tums] 1,000 mg PO W/BRKFST 09/24/23 09/24/23 History Calcium Carbonate [Tums] 3,000 mg PO QID 09/24/23 09/24/23 History Rosuvastatin [Crestor] 20 mg PO HS 09/24/23 09/24/23 History amLODIPine [Norvasc] 5 mg PO DAILY 09/24/23 09/24/23 History Allergies Allergy/AdvReac Type Severity Reaction Status Date / Time No Known Allergies Allergy Verified 09/24/23 14:20 Physical Exam Vitals: Vital Signs Temp Pulse Resp BP Pulse Ox 09/25/23 07:46 98.2 F 77 20 143/80 96 09/25/23 07:00 78 20 143/80 96 09/25/23 05:53 67 18 145/80 98 09/25/23 04:11 73 18 138/80 95 09/25/23 01:57 71 16 116/66 95 09/24/23 22:00 69 16 119/74 96 09/24/23 19:54 80 18 109/67 96 09/24/23 17:53 97.4 F L 09/24/23 17:40 95.9 F L 86 18 140/64 94 L 09/24/23 15:41 80 20 130/75 95 09/24/23 13:56 68 18 132/75 97 patient is awake, comfortable, answers questions appropriately Examination of the heart S1 and S2 Examination of the lungs bilateral breath sounds are heard with decreased breath sounds at the bases Abdomen is soft nontender Examination of lower extremity shows 1+ edema bilaterally WIL[employer]ER exam grossly intact no focal deficits noted. Results - Lab Results Most recent lab results Calcium 8.5 mg/dL (8.4-10.2) 09/24/23 12:04 Magnesium 1.4 mg/dL (1.6-2.3) L 09/24/23 12:04 09/24/23 12:04 09/24/23 12:04 Assessment and Plan Assessment: 1. End-stage renal disease on hemodialysis on a Saturday s chedule via IJ permacath 2. Mental status changes with negative initial CT of the head. Neurology on consult 3. CK D mineral bone disorder 4. Volume overload 5. fall with knee injury 6. Coronary artery disease with history of recent coronary stent placement Plan: hemodialysis in a.m. Resume Tums continue potassium supplementation. Thank you for the consultation. I will continue to follow the patient with you during his hospitalization.
--- NOTE | 2023-09-25 12:52 | P.PN ---
Subjective patient is seen for follow-up for end-stage renal disease. He is scheduled for hemodialysis today. Neurology has been consulted. continues to complain of weakness. Hemodynamically stable. Objective - Vital Signs Vital signs: Vital Signs Temp 98.2 F 09/25/23 07:46 Pulse 77 09/25/23 07:46 Resp 20 09/25/23 07:46 BP 143/80 09/25/23 07:46 Pulse Ox 96 09/25/23 07:46 FiO2 Intake & Output 09/24/23 09/25/23 09/25/23 18:59 06:59 18:59 Weight 83.915 kg - Exam 1. End-stage renal disease on hemodialysis on a Saturday schedule via IJ permacath 2. Mental status changes with negative initial CT of the head. Neurology on consult 3. CK D mineral bone disorder 4. Volume overload 5. fall with knee injury 6. Coronary artery disease with history of recent coronary stent placement - Labs CBC & Chem 7: 09/24/23 12:04 09/24/23 12:04 Labs: Abnormal Lab Results - Last 24 Hours (Table) 09/24/23 09/24/23 09/24/23 Range/Units 12:04 12:04 12:04 RBC 3.04 L (4.30-5.90) m/uL Hgb 10.7 L (13.0-17.5) gm/dL Hct 32.3 L (39.0-53.0) % MCV 106.4 H (80.0-100.0) fL MCH 35.1 H (25.0-35.0) pg RDW 16.9 H (11.5-15.5) % Plt Count 101 L (150-450) k/uL Lymphocytes # (Manual) 0.23 L (1.0-4.8) k/uL Macrocytosis Marked A Sodium 131 L (137-145) mmol/L Chloride 97 L (98-107) mmol/L BUN 77 H (9-20) mg/dL Creatinine 7.38 H* (0.66-1.25) mg/dL Magnesium 1.4 L (1.6-2.3) mg/dL Troponin I 0.066 H* (0.000-0.034) ng/mL Total Protein 4.9 L (6.3-8.2) g/dL Albumin 3.1 L (3.5-5.0) g/dL 09/24/23 09/24/23 Range/Units 15:24 18:25 RBC (4.30-5.90) m/uL Hgb (13.0-17.5) gm/dL Hct (39.0-53.0) % MCV (80.0-100.0) fL MCH (25.0-35.0) pg RDW (11.5-15.5) % Plt Count (150-450) k/uL Lymphocytes # (Manual) (1.0-4.8) k/uL Macrocytosis Sodium (137-145) mmol/L Chloride (98-107) mmol/L BUN (9-20) mg/dL Creatinine (0.66-1.25) mg/dL Magnesium (1.6-2.3) mg/dL Troponin I 0.054 H* 0.056 H* (0.000-0.034) ng/mL Total Protein (6.3-8.2) g/dL Albumin (3.5-5.0) g/dL Assessment and Plan Assessment: 1. End-stage renal disease on hemodialysis on a Saturday schedule via IJ permacath 2. Mental status changes with negative initial CT of the head. Neurology on consult 3. CK D mineral bone disorder 4. Volume overload 5. fall with knee injury 6. Coronary artery disease with history of recent coronary stent placement Plan: hemodialysis today and again in a.m.
[2023-09-25 13:30] LABS: ALT 15 U/L (4-49); AST 28 U/L (17-59); African American GFR (CKD) 7 (>60 ml/min/1.73 sqM); Alkaline Phosphatase 69 U/L (38-126); Anion Gap 8 mmol/L; Blood Urea Nitrogen 85 mg/dL (9-20); Calcium 8.6 mg/dL (8.4-10.2); Carbon Dioxide 25 mmol/L (22-30); Chloride 92 mmol/L (98-107); Glucose 95 mg/dL (74-99); Non-African American GFR(CKD) 6 (>60 ml/min/1.73 sqM); Potassium 4.3 mmol/L (3.5-5.1); Sodium 125 mmol/L (137-145); Total Bilirubin 0.5 mg/dL (0.2-1.3); Total Protein 4.8 g/dL (6.3-8.2)
[2023-09-25 13:59] LABS: Anisocytosis Slight; HCT 29.7 % (39.0-53.0); HGB 10.1 gm/dL (13.0-17.5); MCH 36.2 pg (25.0-35.0); MCHC 33.9 g/dL (31.0-37.0); MCV 106.9 fL (80.0-100.0); Macrocytosis Marked; Mean Platelet Volume 9.8; RBC 2.78 m/uL (4.30-5.90); RDW 16.8 % (11.5-15.5)
[2023-09-25 14:39] LABS: Eosinophils # (M) 0.16 k/uL (0-0.7); Lymphocytes # (M) 0.52 k/uL (1.0-4.8); Monocytes # (M) 0.84 k/uL (0-1.0); Neutrophils # (M) 2.48 k/uL (1.3-7.7); Neutrophils % (M) 62 %; Nucleated Red Blood Cells 0 /100 WBC (0-0); Total Cells Counted 100
[2023-09-25 14:40] LABS: Platelet Count 94 k/uL (150-450)
[2023-09-25 18:46] LABS: Amorphous Sediment,Urine Rare /hpf; Appearance,Urine Clear (Clear); Bilirubin,Urine Negative (Negative); Blood,Urine Moderate (Negative); Color,Urine Colorless; Glucose,Urine (UA) Negative (Negative); Ketones,Urine Negative (Negative); Leukocyte Esterase,Urine Negative (Negative); Mucus,Urine Rare /hpf; Nitrite,Urine Negative (Negative); Protein,Urine 1+ (Negative); RBC,Urine 35 /hpf (0-5); Specific Gravity,Urine 1.007 (1.001-1.035); Squamous Epithelial Cell,Urine <1 /hpf (0-4); Urobilinogen,Urine <2.0 mg/dL (<2.0); WBC,Urine 8 /hpf (0-5)
--- NOTE | 2023-09-25 18:49 | P.CONS ---
History of Present Illness - Reason for Consult Consult date: 09/25/23 MM, on Tx Requesting physician: Stoney Costa - Chief Complaint weak, confusion, cough, dysphagia - History of Present Illness Mr Earl is a pleasant male pt of Dr. Whitt on treatment for MM. 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 Urine 04/15/15 revealed a possible monoclonal protein. SPEP was negative. Additional labs revealed increase kappa light chains around 40 mg/dl with k/l ratio markedly elevated at 38.8. BM bx 06/15/15 revealed 10-15 % involvement of the marrow, FISH revealed overall favorable cytogenetics, with CCND1/IGH rearrangement, and loss of Chr 13, bone survey did not show any definite lesions. Observation was recommended at that time. He had a kidney biopsy 04/30/16 revealing kappa chain deposition. Based on this, active treatment was recommended. He was started on Velcade and decadron. He was started on HD and transitioned to PD in mid 10/27. He was changed to Revlimid and dex in early 12/27 due to progressive neuropathy. He was referred for a BMT consult at the [facility], and seen in late 01/27 but, decided against BMT. He was changed to maintenance dose Revlimid 10/28. He has had to hold occasionally over the years because of acute infection or low counts. Most recently he is on 2.5mg twice a week with stable myeloma labs. Last seen in office 09/08. Patient is currently admitted after a fall at home. His could not get him up off the floor. She is also noted that he is getting progressively more confused. CT of the head was negative. He has been in the process of converting from peritoneal dialysis to hemodialysis. His last dialysis was [address]. She noted that the patient is swelling up. He also has a new cough. Denies fevers, nausea or vomiting. Ultrasound of the chest does show a right pleural effusion. Patient complaining of difficulty swallowing. There are plans for an EGD. Review of Systems pt at bedside providing Hx ROS unobtainable: due to mental status Past Medical History Past Medical History: Cancer, Dialysis, GERD/Reflux, Hyperlipidemia, Hypertension, Osteoarthritis (OA), Prostate Disorder, Renal Disease Additional Past Medical History / Comment(s): multiple myeloma, enlarged prostate, kidney stones, diverticulosis, hiatal hernia, hemodialysis august-October 2016, CAPD since October 2016-CURRENTLY ON HEMODIALYSIS WAITING FOR NEW PD CATHETER, orthostatic hypotension, neuropathy, leaky mitral valve/weak left ventricle of heart, pt is on oral CHEMO Revlamid Saturday and . History of Any Multi-Drug Resistant Organisms: None Reported Past Surgical History: Heart Catheterization, Heart Catheterization With Stent Additional Past Surgical History / Comment(s): lithotripsy/laser, fatty tumor removed from right chest, colonoscopy, PERMA cath rt upper chest- removed 2016, hemodialysis cath august-October 27, bilateral cataracts removed, CAPD cath adjustment within two weeks of first insertion in 2016 Past Anesthesia/Blood Transfusion Reactions: No Reported Reaction Additional Past Anesthesia/Blood Transfusion Reaction / Comm: previous blood transfusion without any reactions Past Psychological History: No Psychological Hx Reported Smoking Status: Never smoker Past Alcohol Use History: Occasional Past Drug Use History: None Reported - Past Family History Sister(s) Family Medical History: Cancer Father Family Medical History: Cancer, Deep Vein Thrombosis (DVT) Mother Family Medical History: Dementia Additional Family Medical History / Comment(s): from alzheimer's Brother(s) Family Medical History: Diabetes Mellitus Medications and Allergies Home Medications Medication Instructions Recorded Confirmed Type Omeprazole [PriLOSEC] 20 mg PO DAILY 08/18/16 09/24/23 History valACYclovir HCL [Valtrex] 500 mg PO DAILY 08/18/16 09/24/23 History Finasteride [Proscar] 5 mg PO HS 03/30/18 09/24/23 History Lenalidomide [Revlimid] 2.5 mg PO MOTH 03/30/18 09/24/23 History Metoprolol Tartrate [Lopressor] 25 mg PO BID 03/30/18 09/24/23 History Pregabalin [Lyrica] 75 mg PO BID 03/30/18 09/24/23 History Pro-Renal + Vit D (Unknown) 1 tab PO DAILY 03/30/18 09/24/23 History Diphenox-Atrop 2.5-0.025 mg 1 tab PO DAILY PRN 05/21/23 09/24/23 History [Lomotil] Ergocalciferol (Vitamin D2) 1,250 mcg PO SA 05/21/23 09/24/23 History [Drisdol (50,000 Iu)] Furosemide [Lasix] 80 mg PO BID 05/21/23 09/24/23 History Magnesium Oxide [Mag-Ox] 400 mg PO DAILY 05/21/23 09/24/23 History Micera 50mcg/0.3ml 50 mcg INJ Q14D 05/21/23 09/24/23 History Potassium Chloride ER [K-Dur 20] 20 meq PO HS 05/21/23 09/24/23 History Sodium Bicarbonate Tab 650 mg PO BID 05/21/23 09/24/23 History Sulfamethox-Tmp 800-160Mg [Bactrim 1 tab PO MOWEFR 05/21/23 09/24/23 History DS 800-160 mg] Tamsulosin [Flomax] 0.4 mg PO HS 05/21/23 09/24/23 History calcitrioL 0.5 mcg PO DIRECTED 05/21/23 09/24/23 History Cyanocobalamin (Vitamin B-12) 1,000 mcg PO DAILY 06/18/23 09/24/23 History [Vitamin B-12] Aspirin [Adult Low Dose Aspirin EC] 81 mg PO DAILY 06/24/23 09/24/23 History Midodrine [ProAmatine] 10 mg PO Q6H PRN 08/30/23 09/24/23 History lisinopriL [Zestril] 10 mg PO BID 08/30/23 09/24/23 History metOLazone 5 mg PO BID 08/30/23 09/24/23 History Clopidogrel [Plavix] 75 mg PO DAILY #90 tab 09/04/23 09/24/23 Rx Nitroglycerin Sl Tabs [Nitrostat] 0.4 mg SUBLINGUAL Q5M PRN #25 tab 09/04/23 09/24/23 Rx Calcium Carb-Magnesium Carb 1 tab PO DIRECTED 09/24/23 09/24/23 History 250-300mg (Magnebind 300) Calcium Carbonate [Tums] 1,000 mg PO W/BRKFST 09/24/23 09/24/23 History Calcium Carbonate [Tums] 3,000 mg PO QID 09/24/23 09/24/23 History Rosuvastatin [Crestor] 20 mg PO HS 09/24/23 09/24/23 History amLODIPine [Norvasc] 5 mg PO DAILY 09/24/23 09/24/23 History Allergies Allergy/AdvReac Type Severity Reaction Status Date / Time No Known Allergies Allergy Verified 09/24/23 14:20 Physical Exam Vitals: Vital Signs Temp Pulse Resp BP Pulse Ox 09/25/23 07:46 98.2 F 77 20 143/80 96 09/25/23 07:00 78 20 143/80 96 09/25/23 05:53 67 18 145/80 98 09/25/23 04:11 73 18 138/80 95 09/25/23 01:57 71 16 116/66 95 09/24/23 22:00 69 16 119/74 96 09/24/23 19:54 80 18 109/67 96 09/24/23 17:53 97.4 F L 09/24/23 17:40 95.9 F L 86 18 140/64 94 L 09/24/23 15:41 80 20 130/75 95 09/24/23 13:56 68 18 132/75 97 09/24/23 11:26 97.3 F L 67 22 141/74 95 - Constitutional General appearance: average body habitus, cooperative, no acute distress - EENT Eyes: anicteric sclerae, EOMI ENT: hearing grossly normal - Neck bilateral supraclavicular swellings noted, no palpable LAD Left upper chest jacosb dialysis catheter - Respiratory Respiratory: right: diminished (lower 2/3 lung), left: CTA - Cardiovascular mild anasarca Rhythm: regular Heart sounds: normal: S1, S2 Abnormal Heart Sounds: no systolic murmur, no diastolic murmur, no rub, no S3 Gallop, no S4 Gallop, no click, no other leg Peripheral Edema: bilateral: 1+ - Gastrointestinal General gastrointestinal: no absent bowel sounds, no decreased bowel sounds, no distended, no hepatomegaly, no hyperactive bowel sounds, normal bowel sounds, no organomegaly, no rigid, no scaphoid, soft, no splenomegaly, no tenderness, no umbilical hernia, no ventral hernia - Integumentary Mod/severe upper extremity bruising - Neurologic Neurologic: CNII-XII intact (grossly) - Musculoskeletal Musculoskeletal: generalized weakness - Psychiatric A&OX2, calm, slow to respond Psychiatric: appropriate affect Results CBC & Chem 7: 09/25/23 12:53 09/25/23 12:53 Labs: Abnormal Lab Results - Last 24 Hours (Table) 09/24/23 09/24/23 09/24/23 Range/Units 12:04 12:04 12:04 RBC 3.04 L (4.30-5.90) m/uL Hgb 10.7 L (13.0-17.5) gm/dL Hct 32.3 L (39.0-53.0) % MCV 106.4 H (80.0-100.0) fL MCH 35.1 H (25.0-35.0) pg RDW 16.9 H (11.5-15.5) % Plt Count 101 L (150-450) k/uL Lymphocytes # (Manual) 0.23 L (1.0-4.8) k/uL Macrocytosis Marked A Sodium 131 L (137-145) mmol/L Chloride 97 L (98-107) mmol/L BUN 77 H (9-20) mg/dL Creatinine 7.38 H* (0.66-1.25) mg/dL Magnesium 1.4 L (1.6-2.3) mg/dL Troponin I 0.066 H* (0.000-0.034) ng/mL Total Protein 4.9 L (6.3-8.2) g/dL Albumin 3.1 L (3.5-5.0) g/dL 09/24/23 09/24/23 Range/Units 15:24 18:25 RBC (4.30-5.90) m/uL Hgb (13.0-17.5) gm/dL Hct (39.0-53.0) % MCV (80.0-100.0) fL MCH (25.0-35.0) pg RDW (11.5-15.5) % Plt Count (150-450) k/uL Lymphocytes # (Manual) (1.0-4.8) k/uL Macrocytosis Sodium (137-145) mmol/L Chloride (98-107) mmol/L BUN (9-20) mg/dL Creatinine (0.66-1.25) mg/dL Magnesium (1.6-2.3) mg/dL Troponin I 0.054 H* 0.056 H* (0.000-0.034) ng/mL Total Protein (6.3-8.2) g/dL Albumin (3.5-5.0) g/dL Comments: Chest US and ECHO reports reviewed Chest x-ray: report reviewed CT Scan - head: report reviewed Assessment and Plan (1) Multiple myeloma Current Visit: No Status: Chronic Priority: Medium Code(s): C90.00 - MULTIPLE MYELOMA NOT HAVING ACHIEVED REMISSION SNOMED Code(s): 480717441 (2) Pleural effusion Current Visit: Yes Status: Acute Code(s): J90 - PLEURAL EFFUSION, NOT ELSEWHERE CLASSIFIED SNOMED Code(s): 92691343 (3) Weakness Current Visit: Yes Status: Acute Code(s): R53.1 - WEAKNESS SNOMED Code(s): 09648880 Plan: Multiple myeloma -Diagnosis and treatment as described in HPI -Patient is currently on 2.5 mg of Revlimid on Tuesdays and Fridays. Hold Revlimid for now while patient is acutely ill -Patient CBC from the office on 429 was reviewed. Hemoglobin 11.3 platelets 93,000, normal WBC. CBC currently is able. -Myeloma labs were also drawn in the office on the . They were stable at that time. No additional multiple myeloma labs at this time -Continue to monitor CBC Pleural effusion -Right pleural effusion noted -Pulmonary has seen the patient. Pending their recommendations for management Weakness -Suspect in part related to metabolic encephalopathy as patient has not had dialysis for 4 days now Chronic kidney disease on dialysis -Nephrology consulted
--- NOTE | 2023-09-26 09:56 | P.CNNES ---
History of Present Illness Consult date: 09/25/23 Requesting physician: Fred Lawrence Reason for Consult: [facility] [place] of Present Illness: Patient is a 77-year-old right-handed male with history of ESRD related to multiple myeloma, currently on hemodialysis came to the hospital yesterday at 11:26 AM for altered mental status. Patient lives with his . He does use a cane and a walker at different times for last 2 years. Patient has history of ESRD for last 6 years. History of hypertension no diabetes, never smoker, does not drink alcohol. He used to have peritoneal dialysis, then failed peritoneal dialysis in April due to the dialysis catheter failed. Patient was mostly healthy until second week of April 2023 when his peritoneal dialysis failed because of peritonitis. He was seen by Dr. Tolbert, who said there was no scar tissue and a new peritoneal dialysis catheter was placed but it did not work. It was not taking fluid out and he gained a lot of weight from fluid retention from 190 up to 212. In May 2023, the peritoneal dialysis catheter was taken out and was placed on hemodialysis catheter. He has been using walker after hemodialysis, it is makes him very weak. He has been having difficulty with the breathing, coughing constantly dry cough for 3 to 4 weeks. On Saturday night 08/24/2023 at 10:30 PM he went to the bathroom and legs gave out and he fell, could not stand up. He did not hurt his head. He declined to go to the hospital. Yesterday morning on Saturday his could not understand him, he could not get words out with speech difficulty and not able to organize sentences with some slurring. Therefore she called the ambulance and he was brought to the hospital. As per EMS flowsheet, when they arrived, patient was sitting in the couch, alert and oriented x 4, complaining of weakness and "not feeling right". Per patient's , he fell to the knees last night, she did help him into couch where he slept. Patient's mentioned that he has been sleeping on the couch due to coughing and increased difficulty breathing at night when laying flat. He has been sleeping in the recliner because if he lays down, he coughs constantly. He also has been hallucinating all night long. He also has been having some issues with swallowing, if he has mashed potato or some meat, the food stuck in the back of the throat. He has been eating very lately. He has an appointment with [facility] for scoping. His last treatment was on Saturday. Patient has history of cardiac stents a week ago. This morning patient woke up with slurred speech, thick tongue sounding. He was unable to ambulate. Normally uses a cane or a walker. EKG shows sinus rhythm. His blood pressure was 156/82, pulse 76 respirations 16 saturation 96% blood glucose 127 mg/dL. Yesterday morning he woke up, and could not stand his arms and legs were weak and yesterday he was talking with "thick tongue". There was no facial droop, no focal weakness. He declined to go to the hospital. Vital signs on arrival blood pressure 141/74, pulse rate 67 temperature 97.3. Blood test shows normal WBC hemoglobin 10.7, platelets 101. MCV elevated 106.4. PT PTT normal, sodium 131 which has gone down to 125. BUN 77, creatinine 7.38. Hepatic panel normal. Troponins mildly positive with 0.066. Influenza, RSV and coronavirus PCR negative. CT head revealed age-related atrophic and chronic small vessel ischemic change without acute intracranial process seen at this time. I personally reviewed CT head agree with the findings. EKG showed sinus rhythm with first-degree AV block. Chest x-ray showed small moderate right pleural effusion. Chest ultrasound showed small to moderate right pleural effusion. Patient has history of multiple myeloma, that was diagnosed in 2014, which resulted in kidney failure. His multiple myeloma has been stable," smoldering stage" on 1 chemo pill that he receives twice a week. He has been feeling he has never smoked. He is a light drinker, does not have diabetes. Patient's home medication include Valtrex, omeprazole, Lyrica 75 mg twice daily, metoprolol, Proscar, Flomax, Lasix, vitamin D, B12, aspirin 81 mg, midodrine 10 mg every 6 hours as needed, Plavix 75 mg and Crestor 20 mg. Also on amlodipine, calcium, metolazone. Review of Systems Constitutional: Denies chills, Denies fever Eyes: denies blurred vision, denies decreased vision, denies diplopia, denies pain, denies loss of peripheral vision Ears: deny: decreased hearing, ear discharge Ears, nose, mouth and throat: Denies headache, Denies sore throat, Denies vertigo Cardiovascular: Reports shortness of breath, Denies chest pain Respiratory: Denies cough, Denies excessive sputum Gastrointestinal: Reports diarrhea, Denies abdominal pain, Denies nausea, Denies vomiting Musculoskeletal: Denies low back pain, Denies myalgias, Denies neck pain Integumentary: Reports dryness, Reports unusual bruising, Denies pruritus, Denies rash Neurological: Reports as per HPI Psychiatric: Denies anxiety, Denies depression Hematologic/Lymphatic: Reports easy bruising, Denies easy bleeding Past Medical History Past Medical History: Cancer, Dialysis, GERD/Reflux, Hyperlipidemia, Hypertension, Osteoarthritis (OA), Prostate Disorder, Renal Disease Additional Past Medical History / Comment(s): multiple myeloma, enlarged prostate, kidney stones, diverticulosis, hiatal hernia, hemodialysis august-October 2016, CAPD since October 2016-CURRENTLY ON HEMODIALYSIS WAITING FOR NEW PD CATHETER, orthostatic hypotension, neuropathy, leaky mitral valve/weak left ventricle of heart, pt is on oral CHEMO Revlamid Saturday and . History of Any Multi-Drug Resistant Organisms: None Reported Past Surgical History: Heart Catheterization, Heart Catheterization With Stent Additional Past Surgical History / Comment(s): lithotripsy/laser, fatty tumor removed from right chest, colonoscopy, PERMA cath rt upper chest- removed 2016, hemodialysis cath august-October 27, bilateral cataracts removed, CAPD cath adjustment within two weeks of first insertion in 2016 Past Anesthesia/Blood Transfusion Reactions: No Reported Reaction Additional Past Anesthesia/Blood Transfusion Reaction / Comment(s): previous blood transfusion without any reactions Past Psychological History: No Psychological Hx Reported Smoking Status: Never smoker Past Alcohol Use History: Occasional Past Drug Use History: None Reported - Past Family History Sister(s) Family Medical History: Cancer Father Family Medical History: Cancer, Deep Vein Thrombosis (DVT) Mother Family Medical History: Dementia Additional Family Medical History / Comment(s): from alzheimer's Brother(s) Family Medical History: Diabetes Mellitus Medications and Allergies Home Medications Medication Instructions Recorded Confirmed Type Omeprazole [PriLOSEC] 20 mg PO DAILY 08/18/16 09/24/23 History valACYclovir HCL [Valtrex] 500 mg PO DAILY 08/18/16 09/24/23 History Finasteride [Proscar] 5 mg PO HS 03/30/18 09/24/23 History Lenalidomide [Revlimid] 2.5 mg PO MOTH 03/30/18 09/24/23 History Metoprolol Tartrate [Lopressor] 25 mg PO BID 03/30/18 09/24/23 History Pregabalin [Lyrica] 75 mg PO BID 03/30/18 09/24/23 History Pro-Renal + Vit D (Unknown) 1 tab PO DAILY 03/30/18 09/24/23 History Diphenox-Atrop 2.5-0.025 mg 1 tab PO DAILY PRN 05/21/23 09/24/23 History [Lomotil] Ergocalciferol (Vitamin D2) 1,250 mcg PO SA 05/21/23 09/24/23 History [Drisdol (50,000 Iu)] Furosemide [Lasix] 80 mg PO BID 05/21/23 09/24/23 History Magnesium Oxide [Mag-Ox] 400 mg PO DAILY 05/21/23 09/24/23 History Micera 50mcg/0.3ml 50 mcg INJ Q14D 05/21/23 09/24/23 History Potassium Chloride ER [K-Dur 20] 20 meq PO HS 05/21/23 09/24/23 History Sodium Bicarbonate Tab 650 mg PO BID 05/21/23 09/24/23 History Sulfamethox-Tmp 800-160Mg [Bactrim 1 tab PO MOWEFR 05/21/23 09/24/23 History DS 800-160 mg] Tamsulosin [Flomax] 0.4 mg PO HS 05/21/23 09/24/23 History calcitrioL 0.5 mcg PO DIRECTED 05/21/23 09/24/23 History Cyanocobalamin (Vitamin B-12) 1,000 mcg PO DAILY 06/18/23 09/24/23 History [Vitamin B-12] Aspirin [Adult Low Dose Aspirin EC] 81 mg PO DAILY 06/24/23 09/24/23 History Midodrine [ProAmatine] 10 mg PO Q6H PRN 08/30/23 09/24/23 History lisinopriL [Zestril] 10 mg PO BID 08/30/23 09/24/23 History metOLazone 5 mg PO BID 08/30/23 09/24/23 History Clopidogrel [Plavix] 75 mg PO DAILY #90 tab 09/04/23 09/24/23 Rx Nitroglycerin Sl Tabs [Nitrostat] 0.4 mg SUBLINGUAL Q5M PRN #25 tab 09/04/23 09/24/23 Rx Calcium Carb-Magnesium Carb 1 tab PO DIRECTED 09/24/23 09/24/23 History 250-300mg (Magnebind 300) Calcium Carbonate [Tums] 1,000 mg PO W/BRKFST 09/24/23 09/24/23 History Calcium Carbonate [Tums] 3,000 mg PO QID 09/24/23 09/24/23 History Rosuvastatin [Crestor] 20 mg PO HS 09/24/23 09/24/23 History amLODIPine [Norvasc] 5 mg PO DAILY 09/24/23 09/24/23 History Allergies Allergy/AdvReac Type Severity Reaction Status Date / Time No Known Allergies Allergy Verified 09/24/23 14:20 Physical Examination - Vital Signs Vital Signs: Vital Signs Temp Pulse Resp BP Pulse Ox 09/25/23 13:29 73 20 128/74 96 09/25/23 07:46 98.2 F 77 20 143/80 96 09/25/23 07:00 78 20 143/80 96 09/25/23 05:53 67 18 145/80 98 09/25/23 04:11 73 18 138/80 95 09/25/23 01:57 71 16 116/66 95 09/24/23 22:00 69 16 119/74 96 09/24/23 19:54 80 18 109/67 96 09/24/23 17:53 97.4 F L 09/24/23 17:40 95.9 F L 86 18 140/64 94 L 09/24/23 15:41 80 20 130/75 95 Patient is an elderly male, who appears somewhat encephalopathic, but did become more alert as the examination was carried over. Patient is alert awake. Patient states it is the month of December and the year is 2023. She could not tell what building he is in. When I gave him choices, patient said that he is in "log cabin". He cannot tell what city he is in. but he states that he lives in [place], [place]. He knows name of the current President Bao Biden. Patient has slow mentation and prolonged latency time to answer questions. Speech and language functions are normal. Patient can name most of the objects presented except for earlobe patient said ear, and for the lobe said "end of it, tip". And repeat very well. No aphasia or dysarthria. Attention, concentration and fund of knowledge is adequate. On cranial nerve examination, pupils are equal, round and reacting to light, visual eaton are full on confrontation, with no neglect on double simultaneous stimulation. Extraocular muscles are intact with no nystagmus. Face is symmetric, tongue protrudes to the midline. Palatal elevation and sensation normal, hearing and shoulder shrug normal, facial sensation normal. On muscle strength testing, there is no pronator drift and the strength is normal in arms and legs distally and proximally. Deep tendon reflexes are symmetric hypoactive and plantars are flat. Sensory to touch is equal with no neglect on double simultaneous stimulation. Cerebellar function showed no ataxia for [id number] testing. No dysdiadochokinesia. No ataxia for [id number] testing on either side. Tone and bulk of muscles normal. Gait deferred.. On general examination, there is no carotid bruit or murmur, S1-S2 audible. Chest is clear on consultation. Abdomen is soft nontender. No organomegaly, bowel sounds present. Peripheral pulses are present. No peripheral edema. Results - Laboratory Findings CBC and BMP: 09/25/23 12:53 09/25/23 12:53 Abnormal Lab Findings: Abnormal Labs 09/24/23 09/24/23 09/24/23 12:04 12:04 12:04 RBC 3.04 L Hgb 10.7 L Hct 32.3 L MCV 106.4 H MCH 35.1 H RDW 16.9 H Plt Count 101 L Lymphocytes # (Manual) 0.23 L Macrocytosis Marked A Sodium 131 L Chloride 97 L BUN 77 H Creatinine 7.38 H* Magnesium 1.4 L Troponin I 0.066 H* Total Protein 4.9 L Albumin 3.1 L 09/24/23 09/24/23 09/25/23 15:24 18:25 12:53 RBC 2.78 L Hgb 10.1 L Hct 29.7 L MCV 106.9 H MCH 36.2 H RDW 16.8 H Plt Count 94 L Lymphocytes # (Manual) 0.52 L Macrocytosis Marked A Sodium Chloride BUN Creatinine Magnesium Troponin I 0.054 H* 0.056 H* Total Protein Albumin 09/25/23 12:53 RBC Hgb Hct MCV MCH RDW Plt Count Lymphocytes # (Manual) Macrocytosis Sodium 125 L Chloride 92 L BUN 85 H Creatinine 8.20 H* Magnesium Troponin I Total Protein 4.8 L Albumin 3.0 L Assessment and Plan Assessment: * Altered mental status, likely due to metabolic encephalopathy. Reasons multifactorial as mentioned below. * Episode of "thick tongue" slurred speech, generalized weakness, without any other lateralizing symptoms. Suspect from metabolic encephalopathy, rule out TIA. * Hyponatremia * Chronic renal failure, on hemodialysis every Saturday and Saturday * Volume overload * Macrocytic anemia on B12 folate replacement * Pleural effusion, may need thoracentesis. Pulmonary on board. * CHF with EF 45 to 50% * Coronary artery disease with recent cardiac stent placement. * Multiple myeloma, currently on Revlimid on Tuesdays and Fridays. Oncology following. Plan: * 2D echo revealed mildly impaired low normal systolic function with global hypokinesis, with EF 45 to 50%. No clear evidence of segmental wall motion abnormality. Left atrium is mildly increased in volume. * Carotid Doppler, rule out stenosis. * Continue aspirin 81 mg, Plavix 75 mg and Crestor 20 mg (Lipitor 40 mg in the hospital). * Hemoglobin A1c * Lipid panel * Patient has macrocytic anemia, already on B12, folate replacement. No need to check levels. * Other medical management as per IM, pulmonary and oncology. * PT OT evaluate gait. * DVT prophylaxis: Heparin 5000 units subcu every 12 hour * Neurology will follow. Thank you for the consult. Time with Patient: Greater than 30
--- NOTE | 2023-09-26 10:18 | P.PN ---
Subjective HISTORY OF PRESENT ILLNESS: This is a 77-year-old male with a past medical history significant for coronary artery disease, hypertension, hyperlipidemia, chronic kidney disease on hemodialysis, and multiple myeloma currently on oral chemotherapy. Patient follows in the office with Dr. Singleton. We have been asked to see the patient in consultation for elevated troponins. Patient examined at the bedside in the emergency room. Patient presented to the hospital for chief complaint of generalized weakness. Patient currently denies any chest pain or pressure. He denies any shortness of breath. Vital signs are stable. DIAGNOSTICS: - EKG reveals sinus mechanism with first-degree AV block. No signs of acute ischemia.. - Chest xray small to moderate right pleural effusion. -CT brain: Age-related atrophic and chronic small vessel ischemic changes without acute intracranial process seen. - Laboratory data: - Current home cardiac medications include aspirin 81 mg daily, midodrine 10 mg every 6 hours as needed, metolazone 5 mg twice a day, lisinopril 10 mg twice a day, metoprolol tartrate 25 mg twice a day, rosuvastatin 20 mg at night, Plavix 75 mg daily, amlodipine 5 mg daily - Most recent echocardiogram obtained in January 2023 revealed normal EF and moderate MR - Cardiac catheterization history: September 03, 2023 with stenting to the proximal OM1 09/26/2023 Patient examined this morning at the bedside. Patient's family is at the bedside. Patient denies any chest pain or pressure. He denies shortness of breath. Patient states he underwent hemodialysis yesterday and is scheduled to have hemodialysis again today. Echocardiogram completed revealing ejection fraction 45 to 50%, no clear evidence of segmental wall motion abnormalities, mild TR, mild MR PHYSICAL EXAM: VITAL SIGNS: Reviewed. GENERAL: Well-developed in no acute distress. HEENT: Head is normocephalic. Pupils are equal, round. Sclerae anicteric. Mucous membranes of the mouth are moist. Neck supple. No JVD or thyromegaly LUNGS: Respirations even and unlabored. Lungs essentially clear to auscultation bilaterally, diminished. HEART: Regular rate and rhythm. S1 and S2 heard. Systolic murmur noted ABDOMEN: Soft. Nondistended. Nontender. EXTREMITIES: Normal range of motion. No clubbing or cyanosis. Peripheral pulses intact. No lower extremity edema NEUROLOGIC: Awake and alert. ASSESSMENT: Generalized weakness Moderate right-sided pleural effusion Coronary artery disease with recent stenting of OM1, 09/03/2023 End-stage renal disease on hemodialysis, Saturday Abnormal troponins, flat, secondary to end-stage renal disease, no evidence of acute coronary syndrome Multiple myeloma, currently on oral chemotherapy Hypertension Hyperlipidemia Bicytopenia, thrombocytopenia and anemia Hypomagnesemia PLAN: Continue dual antiplatelet therapy with aspirin and Plavix secondary to recent stenting Continue additional cardiac medications Hemodialysis per nephrology Patient is currently stable from a cardiac standpoint with no further inpatient recommendations We will sign off. Please reconsult if needed. Nurse practitioner note has been reviewed by physician. Signing provider agrees with the documented findings, assessment, and plan of care documented by BILLING SUPERVISOR as a scribe. Objective - Vital Signs Vital signs: Vital Signs Temp 97.7 F 09/26/23 04:00 Pulse 76 09/26/23 04:00 Resp 20 09/26/23 04:00 BP 159/68 09/26/23 04:00 Pulse Ox 95 09/26/23 04:00 FiO2 Intake & Output 09/25/23 09/26/23 09/26/23 18:59 06:59 18:59 Intake Total 500 320 Output Total 2500 25 Balance -1999 295 Weight 83.915 kg 75 kg Intake: Oral 320 Hemodialysis 500 Output: Urine 25 Hemodialysis 2500 Other: Voiding Method Urinal Urinal - Labs CBC & Chem 7: 09/25/23 12:53 09/25/23 12:53 Labs: Abnormal Lab Results - Last 24 Hours (Table) 09/25/23 09/25/23 09/25/23 Range/Units 12:53 12:53 18:27 RBC 2.78 L (4.30-5.90) m/uL Hgb 10.1 L (13.0-17.5) gm/dL Hct 29.7 L (39.0-53.0) % MCV 106.9 H (80.0-100.0) fL MCH 36.2 H (25.0-35.0) pg RDW 16.8 H (11.5-15.5) % Plt Count 94 L (150-450) k/uL Lymphocytes # (Manual) 0.52 L (1.0-4.8) k/uL Macrocytosis Marked A Sodium 125 L (137-145) mmol/L Chloride 92 L (98-107) mmol/L BUN 85 H (9-20) mg/dL Creatinine 8.20 H* (0.66-1.25) mg/dL Total Protein 4.8 L (6.3-8.2) g/dL Albumin 3.0 L (3.5-5.0) g/dL Urine Protein 1+ H (Negative) Urine Blood Moderate H (Negative) Urine RBC 35 H (0-5) /hpf Urine WBC 8 H (0-5) /hpf Amorphous Sediment Rare H (None) /hpf Urine Mucus Rare H (None) /hpf
--- NOTE | 2023-09-26 10:25 | P.PN ---
Subjective patient is seen for follow-up for end-stage renal disease. patient is seen on hemodialysis. Tolerating treatment well. No significant complaints today. Objective - Vital Signs Vital signs: Vital Signs Temp 97.8 F 09/26/23 08:33 Pulse 87 09/26/23 08:33 Resp 16 09/26/23 08:33 BP 153/85 09/26/23 08:33 Pulse Ox 95 09/26/23 08:33 FiO2 Intake & Output 09/25/23 09/26/23 09/26/23 18:59 06:59 18:59 Intake Total 500 320 Output Total 2500 25 Balance -1999 295 Weight 83.915 kg 75 kg Intake: Oral 320 Hemodialysis 500 Output: Urine 25 Hemodialysis 2500 Other: Voiding Method Urinal Urinal Urinal - Exam Patient is awake, comfortable, answers questions appropriately Examination of the heart S1 and S2 Examination of the lungs bilateral breath sounds are heard with decreased breath sounds at the bases Abdomen is soft nontender Examination of lower extremity shows trace edema bilaterally TRAIN STATION AGENT exam grossly intact no focal deficits noted. - Labs CBC & Chem 7: 09/25/23 12:53 09/25/23 12:53 Labs: Abnormal Lab Results - Last 24 Hours (Table) 09/25/23 09/25/23 09/25/23 Range/Units 12:53 12:53 18:27 RBC 2.78 L (4.30-5.90) m/uL Hgb 10.1 L (13.0-17.5) gm/dL Hct 29.7 L (39.0-53.0) % MCV 106.9 H (80.0-100.0) fL MCH 36.2 H (25.0-35.0) pg RDW 16.8 H (11.5-15.5) % Plt Count 94 L (150-450) k/uL Lymphocytes # (Manual) 0.52 L (1.0-4.8) k/uL Macrocytosis Marked A Sodium 125 L (137-145) mmol/L Chloride 92 L (98-107) mmol/L BUN 85 H (9-20) mg/dL Creatinine 8.20 H* (0.66-1.25) mg/dL Total Protein 4.8 L (6.3-8.2) g/dL Albumin 3.0 L (3.5-5.0) g/dL Urine Protein 1+ H (Negative) Urine Blood Moderate H (Negative) Urine RBC 35 H (0-5) /hpf Urine WBC 8 H (0-5) /hpf Amorphous Sediment Rare H (None) /hpf Urine Mucus Rare H (None) /hpf Assessment and Plan Assessment: 1. End-stage renal disease on hemodialysis on a Saturday schedule via IJ permacath 2. Mental status changes with negative initial CT of the head. Neurology on consult 3. CK D mineral bone disorder 4. Volume overload 5. fall with knee injury 6. Coronary artery disease with history of recent coronary stent placement Plan: hemodialysis on a Saturday schedule. Continue Tums Continue oral sodium bicarb Continue potassium supplementation as well.
--- NOTE | 2023-09-26 10:36 | P.PN ---
Subjective Progress Note Date: 09/26/23 Principal diagnosis: Shortness of breath. Is a 77-year-old white male with past medical history significant for multiple myeloma, end-stage renal disease maintained on hemodialysis (on a Saturday, , Saturday schedule), previously maintained on peritoneal dialysis, hyperlipidemia, hypertension, coronary artery disease with recent stenting, BPH, GERD, among other things. Patient presented to emergency room yesterday morning with a chief complaint of multiple days of generalized weakness and it is progressively worse. Yesterday, the patient attempted to stand up and fell onto his knees. Denies head trauma. No focal deficits. Brain CT on arrival does not show any intracranial hemorrhage or mass effect. Due to his weakness, he did miss his hemodialysis treatment yesterday. Patient is currently in the emergency department, room 4. He is on room air. SpO2 96%. He does endorse some exertional shortness of breath. Denies chest pain. Denies worsening lower extremity swelling. He denies any fevers. He does have an occasional intermittent mild nonproductive cough. No significant sputum production. Denies any nausea, vomiting, diarrhea, abdominal pain. He does have a abdominal peritoneal dialysis catheter. Also has a left subclavian hemodialysis catheter. Chest x-ray done on admission demonstrated a moderate size right pleural effusion. For this reason we are consulted. Of note, patient recently had a heart catheterization done 09/03/2023, he received a stent to the OM1. Denies missing any doses of Plavix or aspirin. He does have multiple myeloma, maintained on Revlimid. His oncologist is reportedly Dr. Whitt. CBC: WBC count 4.5, hemoglobin 10.7, hematocrit 32.3, platelets 101. BMP: Sodium 131, potassium 4.3, chloride 97, serum bicarb 23, BUN 77, creatinine 7.38, glucose 96. Lactic acid level 0.9. LFTs not elevated. Ammonia less than 9. Troponins mildly elevated but flat, 0.066, 0.054, and 0.056 respectively. Negative for influenza, RSV, COVID. Patient denies prior history of pleural effusions or thoracentesis. Afebrile. Hemodynamically stable. Progress note dated September 26, 2023. The patient is seen in room 352. The patient is not receiving any IV fluids. The patient is on room air. The plans for hemodialysis today is to remove 1.5 L of fluid. A chest x-ray was ordered for tomorrow. The patient has a right-sided pleural effusion. We are going to attempt a thoracentesis, but the patient will not be completed with hemodialysis till afternoon. No new labs today. Objective - Vital Signs Vital signs: Vital Signs Temp 97.8 F 09/26/23 08:33 Pulse 87 09/26/23 08:33 Resp 16 09/26/23 08:33 BP 153/85 09/26/23 08:33 Pulse Ox 95 09/26/23 08:33 FiO2 Intake & Output 09/25/23 09/26/23 09/26/23 18:59 06:59 18:59 Intake Total 500 320 Output Total 2500 25 Balance -1999 295 Weight 83.915 kg 75 kg Intake: Oral 320 Hemodialysis 500 Output: Urine 25 Hemodialysis 2500 Other: Voiding Method Urinal Urinal Urinal - Exam No acute distress, oriented 3. Currently on room air. HEENT examination is grossly unremarkable. Mucous membranes are moist. No oral lesions. Neck supple. Full range of motion. No adenopathy thyromegaly or neck vein distention. Cardiovascular examination reveals regular rhythm rate. S1-S2 normal. No S3 or S4. No discernible murmur noted. Heart sounds distant. Heart rate 87 bpm. Lungs reveal diminished breath sounds at the right base, and dullness at the right base. Room air saturation 95%. Abdomen soft bowel sounds are heard. No masses or tenderness. Extremities are intact. No cyanosis clubbing or edema. Skin is without rash or lesion. Neurologic examination is brief but nonfocal. - Labs CBC & Chem 7: 09/25/23 12:53 09/25/23 12:53 Labs: Abnormal Lab Results - Last 24 Hours (Table) 09/25/23 09/25/23 09/25/23 Range/Units 12:53 12:53 18:27 RBC 2.78 L (4.30-5.90) m/uL Hgb 10.1 L (13.0-17.5) gm/dL Hct 29.7 L (39.0-53.0) % MCV 106.9 H (80.0-100.0) fL MCH 36.2 H (25.0-35.0) pg RDW 16.8 H (11.5-15.5) % Plt Count 94 L (150-450) k/uL Lymphocytes # (Manual) 0.52 L (1.0-4.8) k/uL Macrocytosis Marked A Sodium 125 L (137-145) mmol/L Chloride 92 L (98-107) mmol/L BUN 85 H (9-20) mg/dL Creatinine 8.20 H* (0.66-1.25) mg/dL Total Protein 4.8 L (6.3-8.2) g/dL Albumin 3.0 L (3.5-5.0) g/dL Urine Protein 1+ H (Negative) Urine Blood Moderate H (Negative) Urine RBC 35 H (0-5) /hpf Urine WBC 8 H (0-5) /hpf Amorphous Sediment Rare H (None) /hpf Urine Mucus Rare H (None) /hpf Assessment and Plan Assessment: Exertional dyspnea, chest x-ray demonstrates a new moderate size right-sided pleural effusion. End-stage renal disease, previously maintained on peritoneal dialysis, transitioned to hemodialysis, on a Saturday, , Saturday schedule. Elevated troponins, rule out an non-ST elevation OR. Coronary artery disease with recent history of PCI/stenting of the OM1 on 09/03/2023. History of hyperlipidemia. History of hypertension. History of multiple myeloma. Anemia of chronic disease. Chronic thrombocytopenia. History of BPH. History of GERD without esophagitis. Plan: Plan dated September 26, 2023. The patient is seen in room 352. The patient is currently undergoing hemodialysis. The plan is to remove 1.5 L of fluid. He is on room air. He is not manifesting any signs or symptoms of respiratory distress. The chest ultrasound did reveal a rather large pocket of fluid on the right side. We will repeat a chest x-ray in the morning. He may or may not have thoracentesis. Additional recommendations and suggestions are forthcoming. Labs, x-rays, medications are all reviewed. Prognosis is guarded. Time with Patient: Less than 30
--- NOTE | 2023-09-26 10:39 | P.PN ---
Subjective Progress Note Date: 09/26/23 Principal diagnosis: Weakness, pleural effusion. Multiple myeloma In follow-up today patient is much more alert than yesterday, he is more interactive with conversation. He denies any fever, no new pain, feels that some of the swelling is better. Nephrology has seen patient. Patient is receiving dialysis at this time. Objective - Vital Signs Vital signs: Vital Signs Temp 97.8 F 09/26/23 08:33 Pulse 87 09/26/23 08:33 Resp 16 09/26/23 08:33 BP 153/85 09/26/23 08:33 Pulse Ox 95 09/26/23 08:33 FiO2 Intake & Output 09/25/23 09/26/23 09/26/23 18:59 06:59 18:59 Intake Total 500 320 Output Total 2500 25 Balance -1999 295 Weight 83.915 kg 75 kg Intake: Oral 320 Hemodialysis 500 Output: Urine 25 Hemodialysis 2500 Other: Voiding Method Urinal Urinal Urinal - Constitutional General appearance: Present: average body habitus, cooperative, no acute distress - EENT Eyes: Present: anicteric sclerae, EOMI ENT: Present: hearing grossly normal - Respiratory Details: Improved aeration in the right lower lobe compared to yesterday Respiratory: bilateral: CTA - Cardiovascular Rhythm: regular - Peripheral edema leg Peripheral Edema Comment(s): Anasarca improved slightly from yesterday Peripheral Edema: bilateral: Trace - Gastrointestinal General gastrointestinal: Present: normal bowel sounds, soft - Integumentary Integumentary Comment(s): Significant bruising on the upper extremities - Neurologic Neurologic: Present: CNII-XII intact - Musculoskeletal Musculoskeletal: Present: generalized weakness - Psychiatric Psychiatric: Present: A&O x's 3, appropriate affect, intact judgment & insight - Labs CBC & Chem 7: 09/25/23 12:53 09/25/23 12:53 Labs: Abnormal Lab Results - Last 24 Hours (Table) 09/25/23 09/25/23 09/25/23 Range/Units 12:53 12:53 18:27 RBC 2.78 L (4.30-5.90) m/uL Hgb 10.1 L (13.0-17.5) gm/dL Hct 29.7 L (39.0-53.0) % MCV 106.9 H (80.0-100.0) fL MCH 36.2 H (25.0-35.0) pg RDW 16.8 H (11.5-15.5) % Plt Count 94 L (150-450) k/uL Lymphocytes # (Manual) 0.52 L (1.0-4.8) k/uL Macrocytosis Marked A Sodium 125 L (137-145) mmol/L Chloride 92 L (98-107) mmol/L BUN 85 H (9-20) mg/dL Creatinine 8.20 H* (0.66-1.25) mg/dL Total Protein 4.8 L (6.3-8.2) g/dL Albumin 3.0 L (3.5-5.0) g/dL Urine Protein 1+ H (Negative) Urine Blood Moderate H (Negative) Urine RBC 35 H (0-5) /hpf Urine WBC 8 H (0-5) /hpf Amorphous Sediment Rare H (None) /hpf Urine Mucus Rare H (None) /hpf Assessment and Plan (1) Multiple myeloma Current Visit: No Status: Chronic Priority: Medium Code(s): C90.00 - MULTIPLE MYELOMA NOT HAVING ACHIEVED REMISSION SNOMED Code(s): 971837080 (2) Pleural effusion Current Visit: Yes Status: Acute Code(s): J90 - PLEURAL EFFUSION, NOT ELSEWHERE CLASSIFIED SNOMED Code(s): 53876156 (3) Weakness Current Visit: Yes Status: Acute Code(s): R53.1 - WEAKNESS SNOMED Code(s): 69608151 Plan: Multiple myeloma -Well controlled disease for several years -Patient is currently on 2.5 mg of Revlimid on Tuesdays and Fridays. Hold Revl imid for now while patient is acutely ill -Patient CBC from the office on 09/08 was reviewed. Hemoglobin 11.3 platelets 93,000, normal WBC. Monitor inpt. -Myeloma labs were also drawn in the office on the . They were stable at that time. No additional multiple myeloma labs at this time Pleural effusion -Right pleural effusion noted on US -Improved aeration in the RLL on exam today -Pulmonary has seen the patient. Pending their recommendations for management Weakness -Suspect in part related to metabolic encephalopathy as patient has not had dialysis for 4 days now Chronic kidney disease on dialysis -Nephrology has seen pt -dialysis started Doctor attests: I performed a history and physical examination of this patient, developed impression and plan of care. Discussed with dictator. I agree with dictators note, documented as a scribe.
--- NOTE | 2023-09-26 15:03 | US ---
EXAMINATION TYPE: US carotid duplex BILAT DATE OF EXAM: 09/26/2023 COMPARISON: US CLINICAL INDICATION: Male, 77 years old with history of TIA; TIA TECHNIQUE: Carotid duplex ultrasound examination. Indirect Doppler criteria was utilized. FINDINGS: EXAM MEASUREMENTS: RIGHT: Peak Systolic Velocity (PSV) cm/sec ----- Right CCA: 91.2 ----- Right ICA: 155.4 ----- Right ECA: 135.5 ICA/CCA ratio: 1.7 RIGHT: End Diastole cm/sec ----- Right CCA: 18.1 ----- Right ICA: 25.4 ----- Right ECA: 11.1 LEFT: Peak Systolic Velocity (PSV) cm/sec ----- Left CCA: 88.9 ----- Left ICA: 167.0 ----- Left ECA: 203.2 ICA/CCA ratio: 1.9 LEFT: End Diastole cm/sec ----- Left CCA: 19.7 ----- Left ICA: 20.7 ----- Left ECA: 22.0 VERTEBRALS (direction of flow): Right Vertebral: Antegrade Left Vertebral: Antegrade Rhythm: Normal SET KEY DRIVER NOTES: Heterogeneous plaque bilaterally with slightly elevated velocities bilaterally IMPRESSION: 50-69% stenosis of the bilateral carotid bifurcations by peak systolic velocity. Criteria for Assigning % of Stenosis / Diameter reduction (Estimation based on the indirect measurements of the internal carotid artery velocities (ICA PSV). 1. Normal (no stenosis)=ICA PSV < 125 cm/s: ratio < 2.0: ICA EDV<40 cm/s. 2. Less than 50% stenosis=ICA PSV < 125 cm/s: ratio < 2.0: ICA EDV<40 cm/s. 3. 50 to 69% stenosis=ICA PSV of 125 to 230 cm/s: ration 2.0 ? 4.0: ICA EDV 40-100 cm/s. 4. Greater than 70% stenosis to near occlusion= ICA PSV > 230 cm/s: ratio > 4.0: ICA EDV > 100 cm/s. 5. Near occlusion= ICA PSV velocities may be low or undetectable: variable ratio and ICA EDV. 6. Total occlusion=unable to detect flow.
[2023-09-26 15:16] LABS: Chol/HDL Ratio 2.69 Ratio; LDL Cholesterol,Calculated 36.8 mg/dL (0.0-131.0)
--- NOTE | 2023-09-27 08:24 | XR ---
EXAMINATION TYPE: XR chest 1V portable DATE OF EXAM: 09/27/2023 6:59 AM CLINICAL INDICATION:Male, 77 years old with history of CHF; COMPARISON: Chest radiographs from 09/24/2023 TECHNIQUE: XR chest 1V portable Frontal view of the chest. FINDINGS: Lungs/Pleura: Small moderate pleural effusion with associated atelectasis. There is no evidence of pl eural effusion, focal consolidation, or pneumothorax. Pulmonary vascularity: Unremarkable. Heart/mediastinum: Cardiomediastinal silhouette is unremarkable. Musculoskeletal: No acute osseous pathology. Lines/Tubes: Left internal jugular central venous catheter with distal tip at the cavoatrial junction. IMPRESSION: 1. Small moderate right pleural effusion. 2. Right central venous catheter in appropriate position.
[2023-09-27 09:44] LABS: Anisocytosis Slight; HCT 34.2 % (39.0-53.0); HGB 11.4 gm/dL (13.0-17.5); MCH 35.4 pg (25.0-35.0); MCHC 33.2 g/dL (31.0-37.0); MCV 106.7 fL (80.0-100.0); Macrocytosis Marked; Mean Platelet Volume 9.3; RBC 3.21 m/uL (4.30-5.90); WBC 4.4 k/uL (3.8-10.6)
[2023-09-27 09:45] LABS: Platelet Count 96 k/uL (150-450)
--- NOTE | 2023-09-27 10:02 | P.PN ---
Subjective Progress Note Date: 09/26/23 Dean Earl, is a77 year old male who presented to [facility] emergency room with a chief complaint of generalized weakness and fall He was evaluated in the emergency room vital examination on presentation revealed a temperature of 97.3 pulse 67 respiration 22 blood pressure 141/74 pu lse ox 95% on room air Laboratory data reveals a white blood count of 4.5 hemoglobin 10.7 platelet c ount 101 BUN 77 creatinine 7.38 troponin level 0.066 Testing in the emergency room revealed computed tomography scan of the brain revealed chronic small vessel ischemic changes without acute intracranial process, chest x-ray done in the emergency room revealed [id number] right pleural effusion, EKG revealed sinus rhythm with first-degree AV block and left axis deviation Patient was admitted to medical floor for further evaluation and treatment Past medical history is significant for end-stage renal disease on hemodialysis, hypertension, hyperlipidemia, coronary artery disease with history of angioplasty and stent placement, On 09/25/2023 patient is resting comfortably in bed at bedside. Possible thoracentesis today per pulmonary. Neurology services have been consulted for o ngoing confusion. Patient also to get hemodialysis today per nephrology services. Current vital signs temp 98.2, heart 77, respiratory rate 20, blood pressure 143/80 with pulse ox 96% on room air on 09/26/2023 patient was seen and examined on the medical floor he is alert slightly confused in no apparent distress, there is no fever or chills no headache or dizziness no chest pain no shortness of breath no cough no nausea or vomiting no abdominal pain no diarrhea and no urinary symptoms. Vital exam reveals a temperature of 97.8 pulse 87 respiration 16 and blood pressure 153/85 pulse ox 95% on room air Objective - Vital Signs Vital signs: Vital Signs Temp 97.8 F 09/26/23 08:33 Pulse 87 09/26/23 08:33 Resp 16 09/26/23 08:33 BP 153/85 09/26/23 08:33 Pulse Ox 95 09/26/23 08:33 FiO2 Intake & Output 09/25/23 09/26/23 09/26/23 18:59 06:59 18:59 Intake Total 500 320 Output Total 2500 25 Balance -1999 295 Weight 83.915 kg 75 kg Intake: Oral 320 Hemodialysis 500 Output: Urine 25 Hemodialysis 2500 Other: Voiding Method Urinal Urinal Urinal - Exam In general patient is alert and oriented x 3 in no distress HEENT head normocephalic and atraumatic Neck is supple no JVD no goiter no lymphadenopathy no carotid bruit Chest examination is clear to auscultation no crackles no wheezing Cardiac exam reveals regular heart sounds S1 and S2 no gallops no murmurs Abdomen is soft nontender no organomegaly with normal bowel sounds Extremity exam reveals no edema no cyanosis or clubbing Neurological examination reveals no gross focal deficits - Labs CBC & Chem 7: 09/25/23 12:53 09/25/23 12:53 Labs: Abnormal Lab Results - Last 24 Hours (Table) 09/25/23 09/25/23 09/25/23 Range/Units 12:53 12:53 18:27 RBC 2.78 L (4.30-5.90) m/uL Hgb 10.1 L (13.0-17.5) gm/dL Hct 29.7 L (39.0-53.0) % MCV 106.9 H (80.0-100.0) fL MCH 36.2 H (25.0-35.0) pg RDW 16.8 H (11.5-15.5) % Plt Count 94 L (150-450) k/uL Lymphocytes # (Manual) 0.52 L (1.0-4.8) k/uL Macrocytosis Marked A Sodium 125 L (137-145) mmol/L Chloride 92 L (98-107) mmol/L BUN 85 H (9-20) mg/dL Creatinine 8.20 H* (0.66-1.25) mg/dL Total Protein 4.8 L (6.3-8.2) g/dL Albumin 3.0 L (3.5-5.0) g/dL Urine Protein 1+ H (Negative) Urine Blood Moderate H (Negative) Urine RBC 35 H (0-5) /hpf Urine WBC 8 H (0-5) /hpf Amorphous Sediment Rare H (None) /hpf Urine Mucus Rare H (None) /hpf Assessment and Plan Plan: generalized weakness Fall with bilateral knee injury right pleural effusion Elevated troponin level Underlying history of hypertension Underlying history of hyperlipidemia Underlying history of coronary artery disease with history of stent placement Underlying history of end-stage renal disease on hemodialysis History of multiple myeloma at this time patient will be admitted to medical floor home medications reviewed and reordered Cardiology pulmonary and nephrology consultations initiated in the emergency room Will follow closely
[2023-09-27 10:05] LABS: ALT 24 U/L (4-49); AST 49 U/L (17-59); African American GFR (CKD) 16 (>60 ml/min/1.73 sqM); Albumin 3.5 g/dL (3.5-5.0); Alkaline Phosphatase 91 U/L (38-126); Anion Gap 9 mmol/L; Blood Urea Nitrogen 21 mg/dL (9-20); Calcium 8.8 mg/dL (8.4-10.2); Carbon Dioxide 23 mmol/L (22-30); Chloride 101 mmol/L (98-107); Glucose 131 mg/dL (74-99); Non-African American GFR(CKD) 14 (>60 ml/min/1.73 sqM); Potassium 4.3 mmol/L (3.5-5.1); Sodium 133 mmol/L (137-145); Total Bilirubin 1.1 mg/dL (0.2-1.3); Total Protein 5.6 g/dL (6.3-8.2)
[2023-09-27 10:07] LABS: Eosinophils # (M) 0.26 k/uL (0-0.7); Lymphocytes # (M) 0.66 k/uL (1.0-4.8); Monocytes # (M) 0.88 k/uL (0-1.0); Neutrophils % (M) 59 %; Nucleated Red Blood Cells 0 /100 WBC (0-0); Total Cells Counted 100
--- NOTE | 2023-09-27 10:07 | XR ---
EXAMINATION TYPE: XR chest 1V portable DATE OF EXAM: 09/27/2023 9:56 AM CLINICAL INDICATION:Male, 77 years old with history of S/P right thoracentesis; COMPARISON: Chest radiographs from 09/27/2023. TECHNIQUE: XR chest 1V portable Frontal view of the chest. FINDINGS: Lungs/Pleura: Decreased right pleural effusion. There is no evidence of left pleural effusion, focal consolidation, or pneumothorax. Pulmonary vascularity: Unremarkable. Heart/mediastinum: Cardiomediastinal silhouette is unremarkable. Musculoskeletal: No acute osseous pathology. Left central venous catheter with tip in appropriate position. IMPRESSION: Decrease in right pleural effusion without evidence for pneumothorax.
--- NOTE | 2023-09-27 10:13 | PCN ---
PROCEDURE NOTE PROCEDURE PERFORMED: Right-sided thoracentesis. PREOPERATIVE DIAGNOSIS: Right pleural effusion. POSTOP DIAGNOSIS: Right pleural effusion. LOG MANAGER: Dr. Moss. DESCRIPTION OF PROCEDURE: There was informed consent, universal timeout. The patient's procedure took place in room 352. The posterior chest was marked by ultrasound. The fluid will be sent for analysis including cytology, chemistry, and microbiology. 1.5 L of fluid was removed from the right pleural space. The fluid had a dark yellow color to it. The patient tolerated the procedure well. Chest x-ray was ordered to rule out pneumothorax. MMODL / IJN: [id number] /
--- NOTE | 2023-09-27 10:21 | P.PN ---
Subjective Progress Note Date: 09/26/23 Patient was seen for a follow-up. Patient's was also present. Patient states that he coughs when he gets up. When he is laying down he coughs more. When he is laying down, he has difficulty catching the breath. Patient was having some hallucinations, trying to get out of bed, wanted to stand to pee but only a teaspoon will come. Patient to undergo thoracentesis in the morning. Objective - Vital Signs Vital signs: Vital Signs Temp 97.7 F 09/26/23 12:00 Pulse 70 09/26/23 12:00 Resp 16 09/26/23 12:00 BP 114/72 09/26/23 12:00 Pulse Ox 100 09/26/23 12:00 FiO2 Intake & Output 09/25/23 09/26/23 09/26/23 18:59 06:59 18:59 Intake Total 500 320 0 Output Total 2500 25 0 Balance -2000 295 0 Weight 83.915 kg 75 kg Intake: Oral 320 0 Hemodialysis 500 Output: Urine 25 0 Hemodialysis 2500 Other: Voiding Method Urinal Urinal Urinal # Bowel Movements 0 - Exam Unchanged - Labs CBC & Chem 7: 09/27/23 08:13 09/27/23 09:22 Labs: Abnormal Lab Results - Last 24 Hours (Table) 09/25/23 Range/Units 18:27 Urine Protein 1+ H (Negative) Urine Blood Moderate H (Negative) Urine RBC 35 H (0-5) /hpf Urine WBC 8 H (0-5) /hpf Amorphous Sediment Rare H (None) /hpf Urine Mucus Rare H (None) /hpf Assessment and Plan Assessment: * Altered mental status, likely due to metabolic encephalopathy. Reasons multifactorial as mentioned below. * Episode of "thick tongue" slurred speech, generalized weakness, without any other lateralizing symptoms. Suspect from metabolic encephalopathy, rule out TIA. * Hyponatremia * Chronic renal failure, on hemodialysis every Saturday and Saturday * Volume overload * Macrocytic anemia on B12 folate replacement * Pleural effusion, may need thoracentesis. Pulmonary on board. * CHF with EF 45 to 50% * Coronary artery disease with recent cardiac stent placement. * Multiple myeloma, currently on Revlimid on Tuesdays and Fridays. Oncology following. Plan: * 2D echo revealed mildly impaired low normal systolic function with global hypokinesis, with EF 45 to 50%. No clear evidence of segmental wall motion abnormality. Left atrium is mildly increased in volume. * Carotid Doppler, revealed 50 to 69% stenosis of bilateral carotid bifurcations by peak systolic velocity. Antegrade flow in both vertebral arteries. * Check MRI of the brain evaluate for any acute or subacute stroke. * Continue aspirin 81 mg, Plavix 75 mg and Crestor 20 mg (Lipitor 40 mg in the hospital). * Hemoglobin A1c 4.9 * Lipid panel cholesterol 98, LDL 36, HDL 36, triglycerides 124. Continue Lipitor 40 mg daily. * Patient has macrocytic anemia, already on B12, folate replacement. No need to check levels. * Other medical management as per IM, pulmonary and oncology. * PT OT evaluate gait. * DVT prophylaxis: Heparin 5000 units subcu every 12 hour
--- NOTE | 2023-09-27 11:05 | P.PN ---
Subjective Progress Note Date: 09/27/23 Principal diagnosis: Shortness of breath. Is a 77-year-old white male with past medical history significant for multiple myeloma, end-stage renal disease maintained on hemodialysis (on a Saturday, , Saturday schedule), previously maintained on peritoneal dialysis, hyperlipidemia, hypertension, coronary artery disease with recent stenting, BPH, GERD, among other things. Patient presented to emergency room yesterday morning with a chief complaint of multiple days of generalized weakness and it is progressively worse. Yesterday, the patient attempted to stand up and fell onto his knees. Denies head trauma. No focal deficits. Brain CT on arrival does not show any intracranial hemorrhage or mass effect. Due to his weakness, he did miss his hemodialysis treatment yesterday. Patient is currently in the emergency department, room 4. He is on room air. SpO2 96%. He does endorse some exertional shortness of breath. Denies chest pain. Denies worsening lower extremity swelling. He denies any fevers. He does have an occasional intermittent mild nonproductive cough. No significant sputum production. Denies any nausea, vomiting, diarrhea, abdominal pain. He does have a abdominal peritoneal dialysis catheter. Also has a left subclavian hemodialysis catheter. Chest x-ray done on admission demonstrated a moderate size right pleural effusion. For this reason we are consulted. Of note, patient recently had a heart catheterization done 09/03/2023, he received a stent to the OM1. Denies missing any doses of Plavix or aspirin. He does have multiple myeloma, maintained on Revlimid. His oncologist is reportedly Dr. Whitt. CBC: WBC count 4.5, hemoglobin 10.7, hematocrit 32.3, platelets 101. BMP: Sodium 131, potassium 4.3, chloride 97, serum bicarb 23, BUN 77, creatinine 7.38, glucose 96. Lactic acid level 0.9. LFTs not elevated. Ammonia less than 9. Troponins mildly elevated but flat, 0.066, 0.054, and 0.056 respectively. Negative for influenza, RSV, COVID. Patient denies prior history of pleural effusions or thoracentesis. Afebrile. Hemodynamically stable. Progress note dated September 26, 2023. The patient is seen in room 352. The patient is not receiving any IV fluids. The patient is on room air. The plans for hemodialysis today is to remove 1.5 L of fluid. A chest x-ray was ordered for tomorrow. The patient has a right-sided pleural effusion. We are going to attempt a thoracentesis, but the patient will not be completed with hemodialysis till afternoon. No new labs today. Progress note dated September 27, 2023. The patient is seen today in room 352. The patient did have a right-sided thoracentesis earlier today, with 1.5 L of fluid being removed from the right pleural space. Patient tolerated procedure well. Currently, he is on room air. Is not receiving any IV fluid. No plans for hemodialysis today. Labs today include a sodium 133, potassium 4.3, chlorides 101, CO2 23, BUN 21, and creatinine 3.92. White Count 4.4, Hemoglobin 11.4, Hematocrit 34.2, Platelet Count 96,000. Chest x-ray shows improvement in the right-sided pleural effusion, without a postthoracentesis pneumothorax. Objective - Vital Signs Vital signs: Vital Signs Temp 97.4 F L 09/27/23 08:00 Pulse 88 09/27/23 08:00 Resp 20 09/27/23 08:00 BP 131/74 09/27/23 08:00 Pulse Ox 96 09/27/23 08:00 FiO2 Intake & Output 09/26/23 09/27/23 09/27/23 18:59 06:59 18:59 Intake Total 0 200 236 Output Total 0 50 Balance 0 150 236 Weight 74 kg Intake: Oral 0 200 236 Output: Urine 0 50 Other: Voiding Method Urinal Urinal # Voids 1 # Bowel Movements 1 1 - Exam No acute distress, oriented 3. Currently on room air. HEENT examination is grossly unremarkable. Mucous membranes are moist. No oral lesions. Neck supple. Full range of motion. No adenopathy thyromegaly or neck vein distention. Cardiovascular examination reveals regular rhythm rate. S1-S2 normal. No S3 or S4. No discernible murmur noted. Heart sounds distant. Heart rate 85 bpm. Lungs reveal improved breath sounds at the right lung base. Minimal dullness on percussion. Left lung is clear. No crackles. No wheezes. Room air saturation 87 %. Abdomen soft bowel sounds are heard. No masses or tenderness. Extremities are intact. No cyanosis clubbing or edema. Skin is without rash or lesion. Neurologic examination is brief but nonfocal. - Labs CBC & Chem 7: 09/27/23 08:13 09/27/23 09:22 Labs: Abnormal Lab Results - Last 24 Hours (Table) 09/25/23 09/27/23 09/27/23 Range/Units 12:53 08:13 09:22 RBC 3.21 L (4.30-5.90) m/uL Hgb 11.4 L (13.0-17.5) gm/dL Hct 34.2 L (39.0-53.0) % MCV 106.7 H (80.0-100.0) fL MCH 35.4 H (25.0-35.0) pg RDW 17.0 H (11.5-15.5) % Plt Count 96 L (150-450) k/uL Lymphocytes # (Manual) 0.66 L (1.0-4.8) k/uL Macrocytosis Marked A Sodium 133 L (137-145) mmol/L BUN 21 H (9-20) mg/dL Creatinine 3.92 H (0.66-1.25) mg/dL Glucose 131 H (74-99) mg/dL Total Protein 5.6 L (6.3-8.2) g/dL HDL Cholesterol 36.40 L (40.00-60.00) mg/dL Assessment and Plan Assessment: Exertional dyspnea, secondary to right-sided pleural effusion, S/P 1.5 L thoracentesis, September 27, 2023. End-stage renal disease, previously maintained on peritoneal dialysis, transitioned to hemodialysis, on a Saturday, , Saturday schedule. Elevated troponins, rule out an non-ST elevation OR. Coronary artery disease with recent history of PCI/stenting of the OM1 on 09/03/2023. History of hyperlipidemia. History of hypertension. History of multiple myeloma. Anemia of chronic disease. Chronic thrombocytopenia. History of BPH. History of GERD without esophagitis. Plan: Plan dated September 26, 2023. The patient is seen in room 352. The patient is currently undergoing hemodialysis. The plan is to remove 1.5 L of fluid. He is on room air. He is not manifesting any signs or symptoms of respiratory distress. The chest ultrasound did reveal a rather large pocket of fluid on the right side. We will repeat a chest x-ray in the morning. He may or may not have thoracentesis. Additional recommendations and suggestions are forthcoming. Labs, x-rays, medications are all reviewed. Prognosis is guarded. Plan dated September 27, 2023. The patient had an uneventful thoracentesis on the right side today. 1.5 L of dark yellow fluid was removed. The fluid will be sent for analysis including ch emistry, cytology, and microbiology. The patient tolerated the procedure well. There was no pneumothorax after the thoracentesis. We will continue to follow the patient, and make recommendations. Prognosis is guarded. Time with Patient: Less than 30
--- NOTE | 2023-09-27 11:37 | P.PN ---
Subjective patient is seen for follow-up for end-stage renal disease. Tolerated hemodialysis well yesterday. Status post thoracentesis with 1.5 L removed from the right side. Complaining of cough. Objective - Vital Signs Vital signs: Vital Signs Temp 97.4 F L 09/27/23 08:00 Pulse 88 09/27/23 08:00 Resp 20 09/27/23 08:00 BP 131/74 09/27/23 08:00 Pulse Ox 96 09/27/23 08:00 FiO2 Intake & Output 09/26/23 09/27/23 09/27/23 18:59 06:59 18:59 Intake Total 0 200 236 Output Total 0 50 Balance 0 150 236 Weight 74 kg Intake: Oral 0 200 236 Output: Urine 0 50 Other: Voiding Method Urinal Urinal # Voids 1 # Bowel Movements 1 1 - Exam Patient is awake, comfortable, answers questions appropriately Examination of the heart S1 and S2 Examination of the lungs bilateral breath sounds are heard with decreased breath sounds at the bases Abdomen is soft nontender Examination of lower extremity shows trace edema bilaterally TRACK LAYER HEAD exam grossly intact no focal deficits noted. - Labs CBC & Chem 7: 09/27/23 08:13 09/27/23 09:22 Labs: Abnormal Lab Results - Last 24 Hours (Table) 09/25/23 09/27/23 09/27/23 Range/Units 12:53 08:13 09:22 RBC 3.21 L (4.30-5.90) m/uL Hgb 11.4 L (13.0-17.5) gm/dL Hct 34.2 L (39.0-53.0) % MCV 106.7 H (80.0-100.0) fL MCH 35.4 H (25.0-35.0) pg RDW 17.0 H (11.5-15.5) % Plt Count 96 L (150-450) k/uL Lymphocytes # (Manual) 0.66 L (1.0-4.8) k/uL Macrocytosis Marked A Sodium 133 L (137-145) mmol/L BUN 21 H (9-20) mg/dL Creatinine 3.92 H (0.66-1.25) mg/dL Glucose 131 H (74-99) mg/dL Total Protein 5.6 L (6.3-8.2) g/dL HDL Cholesterol 36.40 L (40.00-60.00) mg/dL Assessment and Plan Assessment: 1. End-stage renal disease on hemodialysis on a Saturday schedule via IJ permacath 2. Mental status changes with negative initial CT of the head. Neurology on consult. Mentation seems to have improved. Scheduled for MRI. 3. CK D mineral bone disorder 4. Volume overload 5. fall with knee injury 6. Coronary artery disease with history of recent coronary stent placement Plan: hemodialysis on a Saturday schedule. Continue Tums Continue oral sodium bicarb Continue potassium supplementation as well.
[2023-09-27] MEDS: BENZONATATE 100 MG CAP PO SCH (11:49)
--- NOTE | 2023-09-27 14:36 | P.PN ---
Subjective Progress Note Date: 09/27/23 Dean Earl, is a77 year old male who presented to [facility] emergency room with a chief complaint of generalized weakness and fall He was evaluated in the emergency room vital examination on presentation revealed a temperature of 97.3 pulse 67 respiration 22 blood pressure 141/74 pu lse ox 95% on room air Laboratory data reveals a white blood count of 4.5 hemoglobin 10.7 platelet c ount 101 BUN 77 creatinine 7.38 troponin level 0.066 Testing in the emergency room revealed computed tomography scan of the brain revealed chronic small vessel ischemic changes without acute intracranial process, chest x-ray done in the emergency room revealed [id number] right pleural effusion, EKG revealed sinus rhythm with first-degree AV block and left axis deviation Patient was admitted to medical floor for further evaluation and treatment Past medical history is significant for end-stage renal disease on hemodialysis, hypertension, hyperlipidemia, coronary artery disease with history of angioplasty and stent placement, On 09/25/2023 patient is resting comfortably in bed at bedside. Possible thoracentesis today per pulmonary. Neurology services have been consulted for o ngoing confusion. Patient also to get hemodialysis today per nephrology services. Current vital signs temp 98.2, heart 77, respiratory rate 20, blood pressure 143/80 with pulse ox 96% on room air on 09/26/2023 patient was seen and examined on the medical floor he is alert slightly confused in no apparent distress, there is no fever or chills no headache or dizziness no chest pain no shortness of breath no cough no nausea or vomiting no abdominal pain no diarrhea and no urinary symptoms. Vital exam reveals a temperature of 97.8 pulse 87 respiration 16 and blood pressure 153/85 pulse ox 95% on room air on 09/27/2023 patient was seen and examined on the medical floor he is alert and oriented 3 in no apparent distress he is complaining of cough and difficulty taking it breath otherwise he denies any complaints there is no fever or chills no headache or dizziness, no chest pain no nausea or vomiting no abdominal pain no diarrhea and no urinary symptoms. He underwent right sided thoracentesis earlier today with 1.5 L of fluid removed, patient is receiving hemodialysis, pulmonary and nephrologyand hematology are following Objective - Vital Signs Vital signs: Vital Signs Temp 97.4 F L 09/27/23 08:00 Pulse 88 09/27/23 08:00 Resp 20 09/27/23 08:00 BP 131/74 09/27/23 08:00 Pulse Ox 96 09/27/23 08:00 FiO2 Intake & Output 09/26/23 09/27/23 09/27/23 18:59 06:59 18:59 Intake Total 0 200 Output Total 0 50 Balance 0 150 Weight 74 kg Intake: Oral 0 200 Output: Urine 0 50 Other: Voiding Method Urinal Urinal # Voids 1 # Bowel Movements 1 1 - Exam In general patient is alert and oriented x 3 in no distress HEENT head normocephalic and atraumatic Neck is supple no JVD no goiter no lymphadenopathy no carotid bruit Chest examination is clear to auscultation no crackles no wheezing Cardiac exam reveals regular heart sounds S1 and S2 no gallops no murmurs Abdomen is soft nontender no organomegaly with normal bowel sounds Extremity exam reveals no edema no cyanosis or clubbing Neurological examination reveals no gross focal deficits - Labs CBC & Chem 7: 09/27/23 08:13 09/27/23 09:22 Labs: Abnormal Lab Results - Last 24 Hours (Table) 09/25/23 09/27/23 Range/Units 12:53 08:13 RBC 3.21 L (4.30-5.90) m/uL Hgb 11.4 L (13.0-17.5) gm/dL Hct 34.2 L (39.0-53.0) % MCV 106.7 H (80.0-100.0) fL MCH 35.4 H (25.0-35.0) pg RDW 17.0 H (11.5-15.5) % Macrocytosis Marked A HDL Cholesterol 36.40 L (40.00-60.00) mg/dL Assessment and Plan Plan: generalized weakness Fall with bilateral knee injury right pleural effusion Elevated troponin level Underlying history of hypertension Underlying history of hyperlipidemia Underlying history of coronary artery disease with history of stent placement Underlying history of end-stage renal disease on hemodialysis History of multiple myeloma at this time patient will be admitted to medical floor home medications reviewed and reordered Cardiology pulmonary and nephrology consultations initiated in the emergency room Will follow closely
--- NOTE | 2023-09-27 15:27 | P.PN ---
Subjective Progress Note Date: 09/27/23 S/p thoracentesis with 1.5L removed. Post-procedural CXR showed decrease in right pleural effusion without evidence for pneumothorax. Pt reporting increased cough since procedure. SPO2 96% on room air. Tessalon ordered Objective - Vital Signs Vital signs: Vital Signs Temp 97.4 F L 09/27/23 08:00 Pulse 88 09/27/23 08:00 Resp 19 09/27/23 12:07 BP 131/74 09/27/23 08:00 Pulse Ox 96 09/27/23 12:07 FiO2 Intake & Output 09/26/23 09/27/23 09/27/23 18:59 06:59 18:59 Intake Total 0 200 236 Output Total 0 50 Balance 0 150 236 Weight 74 kg Intake: Oral 0 200 236 Output: Urine 0 50 Other: Voiding Method Urinal Urinal Urinal # Voids 1 # Bowel Movements 1 1 - Constitutional General appearance: Present: average body habitus, no acute distress - EENT Eyes: Present: anicteric sclerae ENT: Present: hearing grossly normal - Respiratory Details: breathing even and unlabored - Cardiovascular Details: skin warm and dry - Integumentary Integumentary: Absent: cyanotic - Musculoskeletal Musculoskeletal: Present: strength equal bilaterally - Psychiatric Psychiatric: Present: A&O x's 3 - Labs CBC & Chem 7: 09/27/23 08:13 09/27/23 09:22 Labs: Abnormal Lab Results - Last 24 Hours (Table) 09/25/23 09/27/23 09/27/23 Range/Units 12:53 08:13 09:22 RBC 3.21 L (4.30-5.90) m/uL Hgb 11.4 L (13.0-17.5) gm/dL Hct 34.2 L (39.0-53.0) % MCV 106.7 H (80.0-100.0) fL MCH 35.4 H (25.0-35.0) pg RDW 17.0 H (11.5-15.5) % Plt Count 96 L (150-450) k/uL Lymphocytes # (Manual) 0.66 L (1.0-4.8) k/uL Macrocytosis Marked A Sodium 133 L (137-145) mmol/L BUN 21 H (9-20) mg/dL Creatinine 3.92 H (0.66-1.25) mg/dL Glucose 131 H (74-99) mg/dL Total Protein 5.6 L (6.3-8.2) g/dL HDL Cholesterol 36.40 L (40.00-60.00) mg/dL Assessment and Plan (1) Pleural effusion Current Visit: Yes Status: Acute Priority: High Code(s): J90 - PLEURAL EFFUSION, NOT ELSEWHERE CLASSIFIED SNOMED Code(s): 05722532 (2) Weakness Current Visit: Yes Status: Acute Priority: High Code(s): R53.1 - WEAKNESS SNOMED Code(s): 25745501 (3) Multiple myeloma Current Visit: No Status: Chronic Priority: Medium Code(s): C90.00 - MULTIPLE MYELOMA NOT HAVING ACHIEVED REMISSION SNOMED Code(s): 392354610 Plan: Multiple myeloma -Well controlled disease for several years -Patient is currently on 2.5 mg of Revlimid on Tuesdays and Fridays. Hold Revlimid for now while patient is acutely ill -Patient CBC from the office on 09/08 was reviewed. Hemoglobin 11.3 platelets 93,000, normal WBC. Monitor inpt. -Myeloma labs were also drawn in the office on the . They were stable at that time. No additional multiple myeloma labs at this time -Instructed patient/spouse to continue to hold Revlimid. Will schedule clinic f/u upon discharge so he can be reassessed to ensure he has adequately recovered prior to resuming treatment Pleural effusion -Right pleural effusion noted on US --Pulmonary following -S/p thoracentesis with 1.5L removed. Post-procedural CXR showed decrease in right pleural effusion without evidence for pneumothorax. Pt reporting increased cough since procedure. SPO2 96% on room air. Tessalon ordered Chronic kidney disease on dialysis -Nephrology has seen pt -dialysis started
[2023-09-27 21:24] LABS: Glucose, BF Source Pleural Fluid; Glucose, Body Fluid 105 mg/dL; LDH, Body Fluid Source Pleural Fluid; T. Protein, Body Fluid Source Pleural Fluid; Total Protein, Body Fluid 3210 mg/dL
[2023-09-27 23:22] LABS: Appearance,BF Clear (Clear)
--- NOTE | 2023-09-28 10:39 | P.PN ---
Subjective patient is seen for follow-up for end-stage renal disease. scheduled for hemodialysis today. Status post thoracentesis with 1.5 L removed from the right side. cough has improved. Scheduled for MRI this afternoon. Objective - Vital Signs Vital signs: Vital Signs Temp 98.1 F 09/28/23 04:00 Pulse 79 09/28/23 04:00 Resp 16 09/28/23 04:00 BP 133/72 09/28/23 04:00 Pulse Ox 96 09/28/23 04:00 FiO2 Intake & Output 09/27/23 09/28/23 09/28/23 18:59 06:59 18:59 Intake Total 354 118 Balance 354 118 Weight 82.6 kg Intake: Oral 354 118 Other: Voiding Method Urinal Urinal # Voids 1 1 1 # Bowel Movements 1 - Exam Patient is awake, comfortable, answers questions appropriately Examination of the heart S1 and S2 Examination of the lungs bilateral breath sounds are heard with decreased breath sounds at the bases Abdomen is soft nontender Examination of lower extremity shows trace edema bilaterally TANK TESTER exam grossly intact no focal deficits noted. - Labs CBC & Chem 7: 09/27/23 08:13 09/27/23 09:22 Labs: Microbiology - Last 24 Hours (Table) 09/27/23 09:30 Gram Stain - Preliminary Pleural Fluid Assessment and Plan Assessment: 1. End-stage renal disease on hemodialysis on a Saturday schedule via IJ permacath 2. Mental status changes with negative initial CT of the head. Neurology on consult. Mentation seems to have improved. Scheduled for MRI. 3. CK D mineral bone disorder 4. Volume overload 5. fall with knee injury 6. Coronary artery disease with history of recent coronary stent placement 7. Right pleural effusion status post thoracentesis of 1.5 L Plan: hemodialysis on a Saturday schedule. Continue Tums Continue oral sodium bicarb Continue potassium supplementation as well.
--- NOTE | 2023-09-28 10:51 | P.PN ---
Subjective Progress Note Date: 09/27/23 Patient was seen for a follow-up. Patient's was also present. Patient has undergone thoracentesis today. His breathing has improved, but the cough has got worse. He is constantly coughing consistently dry cough. He has received 2 doses of Tessalon but not helping much. Because of persistent cough patient is not able to receive MRI today. Objective - Vital Signs Vital signs: Vital Signs Temp 97.7 F 09/27/23 16:00 Pulse 88 09/27/23 16:00 Resp 18 09/27/23 16:00 BP 161/78 09/27/23 16:00 Pulse Ox 94 L 09/27/23 16:00 FiO2 Intake & Output 09/26/23 09/27/23 09/27/23 18:59 06:59 18:59 Intake Total 0 200 354 Output Total 0 50 Balance 0 150 354 Weight 74 kg Intake: Oral 0 200 354 Output: Urine 0 50 Other: Voiding Method Urinal Urinal Urinal # Voids 1 1 # Bowel Movements 1 1 - Exam Unchanged. Mentation appears normal. - Labs CBC & Chem 7: 09/27/23 08:13 09/27/23 09:22 Labs: Abnormal Lab Results - Last 24 Hours (Table) 09/27/23 09/27/23 Range/Units 08:13 09:22 RBC 3.21 L (4.30-5.90) m/uL Hgb 11.4 L (13.0-17.5) gm/dL Hct 34.2 L (39.0-53.0) % MCV 106.7 H (80.0-100.0) fL MCH 35.4 H (25.0-35.0) pg RDW 17.0 H (11.5-15.5) % Plt Count 96 L (150-450) k/uL Lymphocytes # (Manual) 0.66 L (1.0-4.8) k/uL Macrocytosis Marked A Sodium 133 L (137-145) mmol/L BUN 21 H (9-20) mg/dL Creatinine 3.92 H (0.66-1.25) mg/dL Glucose 131 H (74-99) mg/dL Total Protein 5.6 L (6.3-8.2) g/dL Assessment and Plan Assessment: * Altered mental status, likely due to metabolic encephalopathy. Reasons multifactorial as mentioned below. * Episode of "thick tongue" slurred speech, generalized weakness, without any other lateralizing symptoms. Suspect from metabolic encephalopathy, rule out TIA. * Bilateral ICA stenosis, moderate degree 50 to 69%. * Hyponatremia * Chronic renal failure, on hemodialysis every Saturday and Saturday * Volume overload * Macrocytic anemia on B12 folate replacement * Pleural effusion, may need thoracentesis. Pulmonary on board. * CHF with EF 45 to 50% * Coronary artery disease with recent cardiac stent placement. * Multiple myeloma, currently on Revlimid on Tuesdays and Fridays. Oncology following. Plan: * 2D echo revealed mildly impaired low normal systolic function with global hypokinesis, with EF 45 to 50%. No clear evidence of segmental wall motion abnormality. Left atrium is mildly increased in volume. * Carotid Doppler, revealed 50 to 69% stenosis of bilateral carotid bifurcations by peak systolic velocity. Antegrade flow in both vertebral arteries. * Await MRI of the brain evaluate for any acute or subacute stroke. * Continue aspirin 81 mg, Plavix 75 mg and Crestor 20 mg (Lipitor 40 mg in the hospital). * Hemoglobin A1c 4.9 * Lipid panel cholesterol 98, LDL 36, HDL 36, triglycerides 124. Continue Lipitor 40 mg daily. * Patient has macrocytic anemia, already on B12, folate replacement. No need to check levels. * Other medical management as per IM, pulmonary and oncology. * PT OT evaluate gait. * DVT prophylaxis: Heparin 5000 units subcu every 12 hour
--- NOTE | 2023-09-28 11:14 | P.PN ---
Subjective Progress Note Date: 09/28/23 Principal diagnosis: Shortness of breath. Is a 77-year-old white male with past medical history significant for multiple myeloma, end-stage renal disease maintained on hemodialysis (on a Saturday, , Saturday schedule), previously maintained on peritoneal dialysis, hyperlipidemia, hypertension, coronary artery disease with recent stenting, BPH, GERD, among other things. Patient presented to emergency room yesterday morning with a chief complaint of multiple days of generalized weakness and it is progressively worse. Yesterday, the patient attempted to stand up and fell onto his knees. Denies head trauma. No focal deficits. Brain CT on arrival does not show any intracranial hemorrhage or mass effect. Due to his weakness, he did miss his hemodialysis treatment yesterday. Patient is currently in the emergency department, room 4. He is on room air. SpO2 96%. He does endorse some exertional shortness of breath. Denies chest pain. Denies worsening lower extremity swelling. He denies any fevers. He does have an occasional intermittent mild nonproductive cough. No significant sputum production. Denies any nausea, vomiting, diarrhea, abdominal pain. He does have a abdominal peritoneal dialysis catheter. Also has a left subclavian hemodialysis catheter. Chest x-ray done on admission demonstrated a moderate size right pleural effusion. For this reason we are consulted. Of note, patient recently had a heart catheterization done 09/03/2023, he received a stent to the OM1. Denies missing any doses of Plavix or aspirin. He does have multiple myeloma, maintained on Revlimid. His oncologist is reportedly Dr. Whitt. CBC: WBC count 4.5, hemoglobin 10.7, hematocrit 32.3, platelets 101. BMP: Sodium 131, potassium 4.3, chloride 97, serum bicarb 23, BUN 77, creatinine 7.38, glucose 96. Lactic acid level 0.9. LFTs not elevated. Ammonia less than 9. Troponins mildly elevated but flat, 0.066, 0.054, and 0.056 respectively. Negative for influenza, RSV, COVID. Patient denies prior history of pleural effusions or thoracentesis. Afebrile. Hemodynamically stable. Progress note dated September 26, 2023. The patient is seen in room 352. The patient is not receiving any IV fluids. The patient is on room air. The plans for hemodialysis today is to remove 1.5 L of fluid. A chest x-ray was ordered for tomorrow. The patient has a right-sided pleural effusion. We are going to attempt a thoracentesis, but the patient will not be completed with hemodialysis till afternoon. No new labs today. Progress note dated September 27, 2023. The patient is seen today in room 352. The patient did have a right-sided thoracentesis earlier today, with 1.5 L of fluid being removed from the right pleural space. Patient tolerated procedure well. Currently, he is on room air. Is not receiving any IV fluid. No plans for hemodialysis today. Labs today include a sodium 133, potassium 4.3, chlorides 101, CO2 23, BUN 21, and creatinine 3.92. White Count 4.4, Hemoglobin 11.4, Hematocrit 34.2, Platelet Count 96,000. Chest x-ray shows improvement in the right-sided pleural effusion, without a postthoracentesis pneumothorax. Progress note dated September 28, 2023. The patient is seen today in room 352. His is in the room as is his daughter. Currently he is on room air. He is not receiving any IV fluids. He is scheduled for hemodialysis today, and apparently also has a scheduled MRI. Currently, his cough is improved. The fluid was sent for analysis, but is not yet back. No new labs noted. The pleural fluid appears to be an exudate, as the protein is more than 3 g. It is actually 3210 mg. The fluid LDH is 151. Objective - Vital Signs Vital signs: Vital Signs Temp 97.7 F 09/28/23 08:00 Pulse 80 09/28/23 08:00 Resp 16 09/28/23 08:00 BP 107/63 09/28/23 08:00 Pulse Ox 96 09/28/23 08:00 FiO2 Intake & Output 09/27/23 09/28/23 09/28/23 18:59 06:59 18:59 Intake Total 354 118 Balance 354 118 Weight 82.6 kg Intake: Oral 354 118 Other: Voiding Method Urinal Urinal Urinal # Voids 1 1 1 # Bowel Movements 1 - Exam No acute distress, oriented 3. Currently on room air. HEENT examination is grossly unremarkable. Mucous membranes are moist. No oral lesions. Neck supple. Full range of motion. No adenopathy thyromegaly or neck vein distention. Cardiovascular examination reveals regular rhythm rate. S1-S2 normal. No S3 or S4. No discernible murmur noted. Heart sounds distant. Heart rate 80 bpm. Lungs reveal improved breath sounds at the right lung base. Minimal dullness on percussion. Left lung is clear. No crackles. No wheezes. Room air saturation 96 %. Abdomen soft bowel sounds are heard. No masses or tenderness. Extremities are intact. No cyanosis clubbing or edema. Skin is without rash or lesion. Neurologic examination is brief but nonfocal. - Labs CBC & Chem 7: 09/27/23 08:13 09/27/23 09:22 Labs: Microbiology - Last 24 Hours (Table) 09/27/23 09:30 Gram Stain - Preliminary Pleural Fluid Assessment and Plan Assessment: Exertional dyspnea, secondary to right-sided pleural effusion, S/P 1.5 L thoracentesis, September 27, 2023. End-stage renal disease, previously maintained on peritoneal dialysis, transitioned to hemodialysis, on a Saturday, , Saturday schedule. Elevated troponins, rule out an non-ST elevation HI. Coronary artery disease with recent history of PCI/stenting of the OM1 on 09/03/2023. History of hyperlipidemia. History of hypertension. History of multiple myeloma. Anemia of chronic disease. Chronic thrombocytopenia. History of BPH. History of GERD without esophagitis. Plan: Plan dated September 26, 2023. The patient is seen in room 352. The patient is currently undergoing hemodialysis. The plan is to remove 1.5 L of fluid. He is on room air. He is not manifesting any signs or symptoms of respiratory distress. The chest ultrasound did reveal a rather large pocket of fluid on the right side. We will repeat a chest x-ray in the morning. He may or may not have thoracentesis. Additional recommendations and suggestions are forthcoming. Labs, x-rays, medications are all reviewed. Prognosis is guarded. Plan dated September 27, 2023. The patient had an uneventful thoracentesis on the right side today. 1.5 L of dark yellow fluid was removed. The fluid will be sent for analysis including chemistry, cytology, and microbiology. The patient tolerated the procedure well. There was no pneumothorax after the thoracentesis. We will continue to follow the patient, and make recommendations. Prognosis is guarded. Plan dated September 28, 2023. The patient was seen in room 352. He is on room air. He is not receiving any IV fluids. The patient had a thoracentesis performed yesterday. He is scheduled to have hemodialysis today. He is also scheduled to have an MRI later today. Labs, x-rays, and medications are reviewed. The fluid appears to be an exudate, as the protein is 3.2 g. We will continue to follow make recommendations along the way. Cytology of the fluid and microbiology are currently pending. Prognosis is guarded. Time with Patient: Less than 30
--- NOTE | 2023-09-28 13:48 | P.PN ---
Subjective Progress Note Date: 09/28/23 Dean Earl, is a77 year old male who presented to [facility] emergency room with a chief complaint of generalized weakness and fall He was evaluated in the emergency room vital examination on presentation revealed a temperature of 97.3 pulse 67 respiration 22 blood pressure 141/74 pu lse ox 95% on room air Laboratory data reveals a white blood count of 4.5 hemoglobin 10.7 platelet c ount 101 BUN 77 creatinine 7.38 troponin level 0.066 Testing in the emergency room revealed computed tomography scan of the brain revealed chronic small vessel ischemic changes without acute intracranial process, chest x-ray done in the emergency room revealed [id number] right pleural effusion, EKG revealed sinus rhythm with first-degree AV block and left axis deviation Patient was admitted to medical floor for further evaluation and treatment Past medical history is significant for end-stage renal disease on hemodialysis, hypertension, hyperlipidemia, coronary artery disease with history of angioplasty and stent placement, On 09/25/2023 patient is resting comfortably in bed at bedside. Possible thoracentesis today per pulmonary. Neurology services have been consulted for o ngoing confusion. Patient also to get hemodialysis today per nephrology services. Current vital signs temp 98.2, heart 77, respiratory rate 20, blood pressure 143/80 with pulse ox 96% on room air on 09/26/2023 patient was seen and examined on the medical floor he is alert slightly confused in no apparent distress, there is no fever or chills no headache or dizziness no chest pain no shortness of breath no cough no nausea or vomiting no abdominal pain no diarrhea and no urinary symptoms. Vital exam reveals a temperature of 97.8 pulse 87 respiration 16 and blood pressure 153/85 pulse ox 95% on room air on 09/27/2023 patient was seen and examined on the medical floor he is alert and oriented 3 in no apparent distress he is complaining of cough and difficulty taking it breath otherwise he denies any complaints there is no fever or chills no headache or dizziness, no chest pain no nausea or vomiting no abdominal pain no diarrhea and no urinary symptoms. He underwent right sided thoracentesis earlier today with 1.5 L of fluid removed, patient is receiving hemodialysis, pulmonary and nephrologyand hematology are following on 09/28/2023 patient was seen and examined on the medical floor he is alert and oriented 3 in no apparent distress he is complaining of cough and difficulty taking it breath otherwise he denies any complaints there is no fever or chills no headache or dizziness, no chest pain no nausea or vomiting no abdominal pain no diarrhea and no urinary symptoms. patient is scheduled for hemodialysis today, he is also scheduled for brain MRI, will continue to follow closely. Objective - Vital Signs Vital signs: Vital Signs Temp 98.1 F 09/28/23 04:00 Pulse 79 09/28/23 04:00 Resp 16 09/28/23 04:00 BP 133/72 09/28/23 04:00 Pulse Ox 96 09/28/23 04:00 FiO2 Intake & Output 09/27/23 09/28/23 09/28/23 18:59 06:59 18:59 Intake Total 354 118 Balance 354 118 Weight 82.6 kg Intake: Oral 354 118 Other: Voiding Method Urinal Urinal # Voids 1 1 1 # Bowel Movements 1 - Exam In general patient is alert and oriented x 3 in no distress HEENT head normocephalic and atraumatic Neck is supple no JVD no goiter no lymphadenopathy no carotid bruit Chest examination is clear to auscultation no crackles no wheezing Cardiac exam reveals regular heart sounds S1 and S2 no gallops no murmurs Abdomen is soft nontender no organomegaly with normal bowel sounds Extremity exam reveals no edema no cyanosis or clubbing Neurological examination reveals no gross focal deficits - Labs CBC & Chem 7: 09/27/23 08:13 09/27/23 09:22 Labs: Microbiology - Last 24 Hours (Table) 09/27/23 09:30 Gram Stain - Preliminary Pleural Fluid Assessment and Plan Plan: generalized weakness Fall with bilateral knee injury right pleural effusion Elevated troponin level Underlying history of hypertension Underlying history of hyperlipidemia Underlying history of coronary artery disease with history of stent placement Underlying history of end-stage renal disease on hemodialysis History of multiple myeloma at this time patient will be admitted to medical floor home medications reviewed and reordered Cardiology pulmonary and nephrology consultations initiated in the emergency room Will follow closely
--- NOTE | 2023-09-28 14:03 | MR ---
EXAMINATION TYPE: MR brain wo con DATE OF EXAM: 09/28/2023 1:48 PM CLINICAL INDICATION:Male, 77 years old with history of stroke/TIA; PHH, Stroke/TIA COMPARISON: 09/24/2023. TECHNIQUE: Multi planar, multi sequence imaging was performed through the brain including: T1, T2, In version recovery, Diffusion weighted imaging, and gradient echo imaging. No gadolinium was given. FINDINGS: The gong-white junctions, ventricular system, basal cisterns appear unremarkable. Scattered foci of high T2 signal intensity are seen within the periventricular white matter. Midline structures show n o abnormality. Diffusion-weighted imaging shows no evidence of restricted diffusion. The susceptibili ty weighted images do not reveal any evidence for micro-hemorrhage. The bone marrow signal is within normal limits. Paranasal sinuses and mastoid air cells: No significant paranasal sinus disease. Visualized orbits: Bilateral aphakia IMPRESSION: 1. No evidence of intracranial mass or acute/subacute infarct. 2. Nonspecific white matter changes, likely secondary to small vessel ischemic disease.
[2023-09-28] MEDS: ERGOCALCIFEROL 1,250 MCG (50,000 IU) CAPSULE PO SCH (14:08)
--- NOTE | 2023-09-29 09:28 | P.PN ---
Subjective Progress Note Date: 09/29/23 Dean Earl, is a77 year old male who presented to [facility] emergency room with a chief complaint of generalized weakness and fall He was evaluated in the emergency room vital examination on presentation revealed a temperature of 97.3 pulse 67 respiration 22 blood pressure 141/74 pu lse ox 95% on room air Laboratory data reveals a white blood count of 4.5 hemoglobin 10.7 platelet c ount 101 BUN 77 creatinine 7.38 troponin level 0.066 Testing in the emergency room revealed computed tomography scan of the brain revealed chronic small vessel ischemic changes without acute intracranial process, chest x-ray done in the emergency room revealed [id number] right pleural effusion, EKG revealed sinus rhythm with first-degree AV block and left axis deviation Patient was admitted to medical floor for further evaluation and treatment Past medical history is significant for end-stage renal disease on hemodialysis, hypertension, hyperlipidemia, coronary artery disease with history of angioplasty and stent placement, On 09/25/2023 patient is resting comfortably in bed at bedside. Possible thoracentesis today per pulmonary. Neurology services have been consulted for o ngoing confusion. Patient also to get hemodialysis today per nephrology services. Current vital signs temp 98.2, heart 77, respiratory rate 20, blood pressure 143/80 with pulse ox 96% on room air on 09/26/2023 patient was seen and examined on the medical floor he is alert slightly confused in no apparent distress, there is no fever or chills no headache or dizziness no chest pain no shortness of breath no cough no nausea or vomiting no abdominal pain no diarrhea and no urinary symptoms. Vital exam reveals a temperature of 97.8 pulse 87 respiration 16 and blood pressure 153/85 pulse ox 95% on room air on 09/27/2023 patient was seen and examined on the medical floor he is alert and oriented 3 in no apparent distress he is complaining of cough and difficulty taking it breath otherwise he denies any complaints there is no fever or chills no headache or dizziness, no chest pain no nausea or vomiting no abdominal pain no diarrhea and no urinary symptoms. He underwent right sided thoracentesis earlier today with 1.5 L of fluid removed, patient is receiving hemodialysis, pulmonary and nephrologyand hematology are following on 09/28/2023 patient was seen and examined on the medical floor he is alert and oriented 3 in no apparent distress he is complaining of cough and difficulty taking it breath otherwise he denies any complaints there is no fever or chills no headache or dizziness, no chest pain no nausea or vomiting no abdominal pain no diarrhea and no urinary symptoms. patient is scheduled for hemodialysis today, he is also scheduled for brain MRI, will continue to follow closely. on 09/28/2022 for patient's alert and oriented 3. Patient underwent MRI of the brain showing no evidence of intracranial mass or acute subacute infarct nonspecific white matter changes likely secondary to small vessel ischemic disease.current vital signs temp 97.6, heart rate 76, respiratory rate 16, blood pressure 126/69 with pulse ox 96% on room air.neurology, nephrology and pulmon sera services are following Objective - Vital Signs Vital signs: Vital Signs Temp 97.6 F 09/29/23 04:00 Pulse 82 09/29/23 08:00 Resp 16 09/29/23 08:00 BP 117/63 09/29/23 08:00 Pulse Ox 96 09/29/23 08:00 FiO2 Intake & Output 09/28/23 09/29/23 09/29/23 18:59 06:59 18:59 Intake Total 754 358 Output Total 2100 0 Balance -1346 0 358 Weight 81.9 kg Intake: Oral 354 358 Hemodialysis 400 Output: Urine 0 Hemodialysis 2100 Other: Voiding Method Urinal Urinal # Voids 2 1 # Bowel Movements 1 - Exam In general patient is alert and oriented x 3 in no distress HEENT head normocephalic and atraumatic Neck is supple no JVD no goiter no lymphadenopathy no carotid bruit Chest examination is clear to auscultation no crackles no wheezing Cardiac exam reveals regular heart sounds S1 and S2 no gallops no murmurs Abdomen is soft nontender no organomegaly with normal bowel sounds Extremity exam reveals no edema no cyanosis or clubbing Neurological examination reveals no gross focal deficits - Labs CBC & Chem 7: 09/27/23 08:13 09/27/23 09:22 Labs: Microbiology - Last 24 Hours (Table) 09/27/23 09:30 Gram Stain - Preliminary Pleural Fluid Body Fluid Culture - Preliminary 09/27/23 09:30 Acid Fast Bacilli Smear - Preliminary Pleural Fluid Assessment and Plan Plan: generalized weakness Fall with bilateral knee injury right pleural effusion Elevated troponin level Underlying history of hypertension Underlying history of hyperlipidemia Underlying history of coronary artery disease with history of stent placement Underlying history of end-stage renal disease on hemodialysis History of multiple myeloma at this time patient will be admitted to medical floor home medications reviewed and reordered pulmonary, cardiology and nephrology services are following Status post thoracentesis Will follow closely
--- NOTE | 2023-09-29 10:31 | P.PN ---
Subjective patient is seen for follow-up for end-stage renal disease. Status post thoracentesis with 1.5 L removed from the right side. No significant complaints today. MRI did not show any acute findings. Mentation is at baseline now. Objective - Vital Signs Vital signs: Vital Signs Temp 97.6 F 09/29/23 04:00 Pulse 82 09/29/23 08:00 Resp 16 09/29/23 08:00 BP 117/63 09/29/23 08:00 Pulse Ox 96 09/29/23 08:00 FiO2 Intake & Output 09/28/23 09/29/23 09/29/23 18:59 06:59 18:59 Intake Total 754 358 Output Total 2100 0 Balance -1346 0 358 Weight 81.9 kg Intake: Oral 354 358 Hemodialysis 400 Output: Urine 0 Hemodialysis 2100 Other: Voiding Method Urinal Urinal # Voids 2 1 # Bowel Movements 1 - Exam Patient is awake, comfortable, answers questions appropriately Examination of the heart S1 and S2 Examination of the lungs bilateral breath sounds are heard with decreased breath sounds at the bases Abdomen is soft nontender Examination of lower extremity shows trace edema bilaterally [employer] exam grossly intact no focal deficits noted. - Labs CBC & Chem 7: 09/27/23 08:13 09/27/23 09:22 Labs: Microbiology - Last 24 Hours (Table) 09/27/23 09:30 Gram Stain - Preliminary Pleural Fluid Body Fluid Culture - Preliminary 09/27/23 09:30 Acid Fast Bacilli Smear - Preliminary Pleural Fluid Assessment and Plan Assessment: 1. End-stage renal disease on hemodialysis on a Saturday schedule via IJ permacath 2. Mental status changes with negative initial CT of the head. Neurology on consult. Mentation seems to have improved. MRI did not show any acute findings. 3. CK D mineral bone disorder, with significant hypocalcemia maintained on supplementation. 4. Volume overload, improved 5. fall with knee injury 6. Coronary artery disease with history of recent coronary stent placement 7. Right pleural effusion status post thoracentesis of 1.5 L Plan: Extra treatment of hemodialysis in a.m. Continue Tums Continue oral sodium bicarb Continue potassium supplementation as well.
--- NOTE | 2023-09-29 11:28 | P.PN ---
Subjective Progress Note Date: 09/28/23 Patient was seen for a follow-up. Patient is laying comfortably in the bed. Offers no new complaints. Objective - Vital Signs Vital signs: Vital Signs Temp 97.5 F L 09/28/23 16:00 Pulse 86 09/28/23 16:00 Resp 16 09/28/23 16:00 BP 115/69 09/28/23 16:00 Pulse Ox 96 09/28/23 16:00 FiO2 Intake & Output 09/28/23 09/28/23 09/29/23 06:59 18:59 06:59 Intake Total 754 Output Total 2100 Balance -1346 Weight 82.6 kg Intake: Oral 354 Hemodialysis 400 Output: Hemodialysis 2100 Other: Voiding Method Urinal Urinal # Voids 1 2 # Bowel Movements 1 - Exam Unchanged. Mentation appears normal. - Labs CBC & Chem 7: 09/27/23 08:13 09/27/23 09:22 Labs: Microbiology - Last 24 Hours (Table) 09/27/23 09:30 Gram Stain - Preliminary Pleural Fluid Body Fluid Culture - Preliminary Assessment and Plan Assessment: * Altered mental status, likely due to metabolic encephalopathy. Reasons multif actorial as mentioned below. * Episode of "thick tongue" slurred speech, generalized weakness, without any other lateralizing symptoms. Suspect from metabolic encephalopathy, rule out stroke/TIA. * Bilateral ICA stenosis, moderate degree 50 to 69%. * Hyponatremia improved, 133 * Chronic renal failure, on hemodialysis every Saturday and Saturday * Volume overload * Macrocytic anemia on B12 folate replacement * Pleural effusion, may need thoracentesis. Pulmonary on board. * CHF with EF 45 to 50% * Coronary artery disease with recent cardiac stent placement. * Multiple myeloma, currently on Revlimid on Tuesdays and Fridays. Oncology following. Plan: * 2D echo revealed mildly impaired low normal systolic function with global hypokinesis, with EF 45 to 50%. No clear evidence of segmental wall motion abnormality. Left atrium is mildly increased in volume. * Carotid Doppler, revealed 50 to 69% stenosis of bilateral carotid bifurcations by peak systolic velocity. Antegrade flow in both vertebral arteries. * MRI of the brain revealed no evidence of intracranial mass or acute/subacute infarct. Nonspecific white matter changes, likely secondary to small vessel ischemic disease. I personally reviewed MRI agree with the findings. * Consider vascular surgery consultation for moderate bilateral ICA stenosis. No evidence of acute stroke on MRI. Other option is surveillance with follow- up carotid Doppler in 6 months. * Continue aspirin 81 mg, Plavix 75 mg and Crestor 20 mg (Lipitor 40 mg in the hospital). * Hemoglobin A1c 4.9 * Lipid panel cholesterol 98, LDL 36, HDL 36, triglycerides 124. Continue Lipitor 40 mg daily. Lipids well-controlled. * Patient has macrocytic anemia, already on B12, folate replacement. No need to check levels. * Other medical management as per IM, pulmonary and oncology. * PT OT evaluate gait. * DVT prophylaxis: Heparin 5000 units subcu every 12 hour * Neurologically, no other workup indicated. Dr. Moss starting neurology service from Saturday morning for any neurological concerns.
--- NOTE | 2023-09-29 11:29 | XR ---
EXAM: XR chest 1V portable CLINICAL INDICATION:Male, 77 years old with history of Pleural effusion; [facility] COMPARISON: 09/27/2023 TECHNIQUE: Chest single view. FINDINGS: Lines/tubes/devices: Left chest dual lumen catheter with tip over the right atrium. Cardiomediastinum: Stable. Cardiac silhouette appears upper normal in size. Unremarkable mediastinal silhouette. Vasculature: Mild increased Lungs/pleura: Similar mild haziness to the left lung base. Similar pleural/parenchymal opacity at the right lung ba se suggesting small pleural effusion with adjacent atelectasis/infiltrate. No visualized pneumothorax . Bones/soft tissues: Bony thorax appears grossly intact as seen. Regional soft tissues appear unremarkable. IMPRESSION: Similar right pleural effusion compared to prior.
[2023-09-29 11:33] LABS: HCT 30.8 % (39.0-53.0); HGB 10.1 gm/dL (13.0-17.5); MCH 35.2 pg (25.0-35.0); MCHC 32.8 g/dL (31.0-37.0); MCV 107.3 fL (80.0-100.0); RBC 2.87 m/uL (4.30-5.90); RDW 17.2 % (11.5-15.5)
[2023-09-29 11:34] LABS: Anisocytosis Slight; Macrocytosis Marked; Mean Platelet Volume 9.9
--- NOTE | 2023-09-29 11:46 | P.PN ---
Subjective Progress Note Date: 09/29/23 Principal diagnosis: Shortness of breath. Is a 77-year-old white male with past medical history significant for multiple myeloma, end-stage renal disease maintained on hemodialysis (on a Saturday, , Saturday schedule), previously maintained on peritoneal dialysis, hyperlipidemia, hypertension, coronary artery disease with recent stenting, BPH, GERD, among other things. Patient presented to emergency room yesterday morning with a chief complaint of multiple days of generalized weakness and it is progressively worse. Yesterday, the patient attempted to stand up and fell onto his knees. Denies head trauma. No focal deficits. Brain CT on arrival does not show any intracranial hemorrhage or mass effect. Due to his weakness, he did miss his hemodialysis treatment yesterday. Patient is currently in the emergency department, room 4. He is on room air. SpO2 96%. He does endorse some exertional shortness of breath. Denies chest pain. Denies worsening lower extremity swelling. He denies any fevers. He does have an occasional intermittent mild nonproductive cough. No significant sputum production. Denies any nausea, vomiting, diarrhea, abdominal pain. He does have a abdominal peritoneal dialysis catheter. Also has a left subclavian hemodialysis catheter. Chest x-ray done on admission demonstrated a moderate size right pleural effusion. For this reason we are consulted. Of note, patient recently had a heart catheterization done 09/03/2023, he received a stent to the OM1. Denies missing any doses of Plavix or aspirin. He does have multiple myeloma, maintained on Revlimid. His oncologist is reportedly Dr. Whitt. CBC: WBC count 4.5, hemoglobin 10.7, hematocrit 32.3, platelets 101. BMP: Sodium 131, potassium 4.3, chloride 97, serum bicarb 23, BUN 77, creatinine 7.38, glucose 96. Lactic acid level 0.9. LFTs not elevated. Ammonia less than 9. Troponins mildly elevated but flat, 0.066, 0.054, and 0.056 respectively. Negative for influenza, RSV, COVID. Patient denies prior history of pleural effusions or thoracentesis. Afebrile. Hemodynamically stable. Progress note dated September 26, 2023. The patient is seen in room 352. The patient is not receiving any IV fluids. The patient is on room air. The plans for hemodialysis today is to remove 1.5 L of fluid. A chest x-ray was ordered for tomorrow. The patient has a right-sided pleural effusion. We are going to attempt a thoracentesis, but the patient will not be completed with hemodialysis till afternoon. No new labs today. Progress note dated September 27, 2023. The patient is seen today in room 352. The patient did have a right-sided thoracentesis earlier today, with 1.5 L of fluid being removed from the right pleural space. Patient tolerated procedure well. Currently, he is on room air. Is not receiving any IV fluid. No plans for hemodialysis today. Labs today include a sodium 133, potassium 4.3, chlorides 101, CO2 23, BUN 21, and creatinine 3.92. White Count 4.4, Hemoglobin 11.4, Hematocrit 34.2, Platelet Count 96,000. Chest x-ray shows improvement in the right-sided pleural effusion, without a postthoracentesis pneumothorax. Progress note dated September 28, 2023. The patient is seen today in room 352. His is in the room as is his daughter. Currently he is on room air. He is not receiving any IV fluids. He is scheduled for hemodialysis today, and apparently also has a scheduled MRI. Currently, his cough is improved. The fluid was sent for analysis, but is not yet back. No new labs noted. The pleural fluid appears to be an exudate, as the protein is more than 3 g. It is actually 3210 mg. The fluid LDH is 151. Progress note dated September 29, 2023. The patient is seen today in room 352. He is resting comfortably in bed. He is not on any fluids. He is not receiving any supplemental oxygen. His cough, is improved, but he still has a cough. His chest x-ray today continues to show a pleural effusion, on the right. It may be reaccumulating. No new labs today. Clinically, the patient appears much more stable. Objective - Vital Signs Vital signs: Vital Signs Temp 97.6 F 09/29/23 04:00 Pulse 82 09/29/23 08:00 Resp 16 09/29/23 08:00 BP 117/63 09/29/23 08:00 Pulse Ox 96 09/29/23 08:00 FiO2 Intake & Output 09/28/23 09/29/23 09/29/23 18:59 06:59 18:59 Intake Total 754 358 Output Total 2100 0 Balance -1346 0 358 Weight 81.9 kg Intake: Oral 354 358 Hemodialysis 400 Output: Urine 0 Hemodialysis 2100 Other: Voiding Method Urinal Urinal Urinal # Voids 2 1 # Bowel Movements 1 - Exam No acute distress, oriented 3. Currently on room air. HEENT examination is grossly unremarkable. Mucous membranes are moist. No oral lesions. Neck supple. Full range of motion. No adenopathy thyromegaly or neck vein d istention. Cardiovascular examination reveals regular rhythm rate. S1-S2 normal. No S3 or S4. No discernible murmur noted. Heart sounds distant. Heart rate 82 bpm. Lungs reveal improved breath sounds at the right lung base. Minimal dullness on percussion. Left lung is clear. No crackles. No wheezes. Room air saturation 96 %. Abdomen soft bowel sounds are heard. No masses or tenderness. Extremities are intact. No cyanosis clubbing or edema. Skin is without rash or lesion. Neurologic examination is brief but nonfocal. - Labs CBC & Chem 7: 09/27/23 08:13 09/27/23 09:22 Labs: Microbiology - Last 24 Hours (Table) 09/27/23 09:30 Gram Stain - Preliminary Pleural Fluid Body Fluid Culture - Preliminary 09/27/23 09:30 Acid Fast Bacilli Smear - Preliminary Pleural Fluid Assessment and Plan Assessment: Exertional dyspnea, secondary to right-sided pleural effusion, S/P 1.5 L thoracentesis, September 27, 2023. End-stage renal disease, previously maintained on peritoneal dialysis, transitioned to hemodialysis, on a Saturday, , Saturday schedule. Elevated troponins, rule out an non-ST elevation OR. Coronary artery disease with recent history of PCI/stenting of the OM1 on 09/03/2023. History of hyperlipidemia. History of hypertension. History of multiple myeloma. Anemia of chronic disease. Chronic thrombocytopenia. History of BPH. History of GERD without esophagitis. Plan: Plan dated September 26, 2023. The patient is seen in room 352. The patient is currently undergoing hemodialysis. The plan is to remove 1.5 L of fluid. He is on room air. He is not manifesting any signs or symptoms of respiratory distress. The chest ultrasound did reveal a rather large pocket of fluid on the right side. We will repeat a chest x-ray in the morning. He may or may not have thoracentesis. Additional recommendations and suggestions are forthcoming. Labs, x-rays, medications are all reviewed. Prognosis is guarded. Plan dated September 27, 2023. The patient had an uneventful thoracentesis on the right side today. 1.5 L of dark yellow fluid was removed. The fluid will be sent for analysis including chemistry, cytology, and microbiology. The patient tolerated the procedure well. There was no pneumothorax after the thoracentesis. We will continue to follow the patient, and make recommendations. Prognosis is guarded. Plan dated September 28, 2023. The patient was seen in room 352. He is on room air. He is not receiving any IV fluids. The patient had a thoracentesis performed yesterday. He is sc heduled to have hemodialysis today. He is also scheduled to have an MRI later today. Labs, x-rays, and medications are reviewed. The fluid appears to be an exudate, as the protein is 3.2 g. We will continue to follow make recommendations along the way. Cytology of the fluid and microbiology are currently pending. Prognosis is guarded. Plan dated September 29, 2023. The patient was seen in room 352. He is currently on room air. He is not receiving any IV fluids. His cough is a bit better. The patient had a thoracentesis on the right side, on September 26. 1.5 L of dark yellow fluid was removed. It was sent to the laboratory for analysis. Labs, x-rays, and medications are reviewed. We will continue to follow the patient, and make recommendations along the way. Time with Patient: Less than 30
[2023-09-29 11:47] LABS: ALT 19 U/L (4-49); AST 29 U/L (17-59); African American GFR (CKD) 14 (>60 ml/min/1.73 sqM); Albumin 2.8 g/dL (3.5-5.0); Alkaline Phosphatase 84 U/L (38-126); Anion Gap 6 mmol/L; Blood Urea Nitrogen 25 mg/dL (9-20); Carbon Dioxide 27 mmol/L (22-30); Chloride 95 mmol/L (98-107); Glucose 100 mg/dL (74-99); Non-African American GFR(CKD) 12 (>60 ml/min/1.73 sqM); Potassium 3.8 mmol/L (3.5-5.1); Sodium 128 mmol/L (137-145); Total Bilirubin 0.8 mg/dL (0.2-1.3); Total Protein 4.7 g/dL (6.3-8.2)
[2023-09-29 12:14] LABS: Platelet Count 85 k/uL (150-450)
[2023-09-29 13:30] LABS: Band Neutrophils % 2 %; Basophils # (M) 0.04 k/uL (0-0.2); Eosinophils # (M) 0.04 k/uL (0-0.7); Lymphocytes # (M) 0.32 k/uL (1.0-4.8); Monocytes # (M) 0.72 k/uL (0-1.0); Neutrophils % (M) 70 %; Nucleated Red Blood Cells 0 /100 WBC (0-0); Total Cells Counted 100
[2023-09-29] MEDS: CALCIUM CARBONATE 500 MG CHEWABLE PO SCH (15:46)
--- NOTE | 2023-09-30 10:41 | P.PN ---
Subjective Patient is seen in follow-up for end-stage renal disease. He is maintained on hemodialysis on Saturday schedule. Resting in bed. Admits to a nonproductive cough. No chest pain or shortness of breath. Vital signs are stable. General: No acute distress. HEENT: Head exam is unremarkable. LUNGS: No audible rhonchi or wheezes. HEART: Rate and Rhythm are regular. ABDOMEN: Nontender. EXTREMITITES: No edema. Objective - Vital Signs Vital signs: Vital Signs Temp 97.5 F L 09/30/23 08:00 Pulse 78 09/30/23 08:00 Resp 16 09/30/23 08:00 BP 107/52 09/30/23 08:00 Pulse Ox 98 09/30/23 08:00 FiO2 Intake & Output 09/29/23 09/30/23 09/30/23 18:59 06:59 18:59 Intake Total 594 0 Balance 594 0 Intake: Oral 594 0 Other: Voiding Method Urinal Urinal # Voids 1 1 - Labs CBC & Chem 7: 09/29/23 10:50 09/29/23 10:50 Labs: Abnormal Lab Results - Last 24 Hours (Table) 09/29/23 09/29/23 Range/Units 10:50 10:50 RBC 2.87 L (4.30-5.90) m/uL Hgb 10.1 L (13.0-17.5) gm/dL Hct 30.8 L (39.0-53.0) % MCV 107.3 H (80.0-100.0) fL MCH 35.2 H (25.0-35.0) pg RDW 17.2 H (11.5-15.5) % Plt Count 85 L (150-450) k/uL Lymphocytes # (Manual) 0.32 L (1.0-4.8) k/uL Macrocytosis Marked A Sodium 128 L (137-145) mmol/L Chloride 95 L (98-107) mmol/L BUN 25 H (9-20) mg/dL Creatinine 4.54 H (0.66-1.25) mg/dL Glucose 100 H (74-99) mg/dL Calcium 8.0 L (8.4-10.2) mg/dL Total Protein 4.7 L (6.3-8.2) g/dL Albumin 2.8 L (3.5-5.0) g/dL Microbiology - Last 24 Hours (Table) 09/27/23 09:30 Gram Stain - Preliminary Pleural Fluid Body Fluid Culture - Preliminary Assessment and Plan Plan: Assessment: 1. End-stage renal disease maintained on hemodialysis on Saturday schedule via left chest permacath. 2. Pleural effusion status post right-sided thoracentesis with 1.5 L drained. 3. Hypertension with chronic kidney disease. Stable. 4. Chronic kidney disease mineral bone disease. On Tums. 5. Coronary artery disease with recent cardiac stent placement. 6. Hyponatremia secondary to chronic kidney disease. Also on thiazide diuretic. Plan: Extra hemodialysis treatment today and another treatment tomorrow per his outpatient schedule. Add 1500 cc fluid restriction. Hold amlodipine for systolic blood pressure less than 120. Stop metolazone.
[2023-09-30 10:50] LABS: ALT 18 U/L (4-49); AST 26 U/L (17-59); African American GFR (CKD) 10 (>60 ml/min/1.73 sqM); Albumin 2.7 g/dL (3.5-5.0); Alkaline Phosphatase 82 U/L (38-126); Anion Gap 7 mmol/L; Blood Urea Nitrogen 39 mg/dL (9-20); Calcium 8.1 mg/dL (8.4-10.2); Carbon Dioxide 25 mmol/L (22-30); Chloride 92 mmol/L (98-107); Glucose 172 mg/dL (74-99); Non-African American GFR(CKD) 9 (>60 ml/min/1.73 sqM); Potassium 3.7 mmol/L (3.5-5.1); Sodium 124 mmol/L (137-145); Total Bilirubin 0.5 mg/dL (0.2-1.3); Total Protein 4.6 g/dL (6.3-8.2)
[2023-09-30 10:54] LABS: Anisocytosis Slight; HCT 29.4 % (39.0-53.0); HGB 9.8 gm/dL (13.0-17.5); MCH 36.7 pg (25.0-35.0); MCHC 33.4 g/dL (31.0-37.0); MCV 109.7 fL (80.0-100.0); Macrocytosis Marked; Mean Platelet Volume 9.8; RBC 2.68 m/uL (4.30-5.90); RDW 17.5 % (11.5-15.5)
[2023-09-30 10:57] LABS: Platelet Count 90 k/uL (150-450)
[2023-09-30 11:38] LABS: Basophils # (M) 0.04 k/uL (0-0.2); Eosinophils # (M) 0.16 k/uL (0-0.7); Lymphocytes # (M) 0.36 k/uL (1.0-4.8); Monocytes # (M) 0.48 k/uL (0-1.0); Neutrophils # (M) 2.96 k/uL (1.3-7.7); Neutrophils % (M) 74 %; Nucleated Red Blood Cells 0 /100 WBC (0-0); Total Cells Counted 100
--- NOTE | 2023-09-30 13:10 | CT ---
EXAMINATION TYPE: CT chest wo con CT DLP: 348.6 mGycm, Automated exposure control for dose reduction was used. DATE OF EXAM: 09/30/2023 12:43 PM COMPARISON: Chest radiograph from same day. CLINICAL INDICATION:Male, 77 years old with history of cough, cough, sob TECHNIQUE: Multiple axial images were obtained through the chest. Sagittal and coronal reformats were created for review. Contrast used: mL of (None if empty) Oral contrast used: (None if empty) FINDINGS: LUNGS/ PLEURA: Small to moderate right pleural effusion with associated atelectasis. Left pleural eff usion. No airspace consolidation or pneumothorax. AIRWAY: Patent and unremarkable. HEART: Size within normal limits. Moderate coronary artery atherosclerosis. MEDIASTINUM: No gross evidence of adenopathy. Suspected lipoma in the upper superior mediastinum ambika uring 39 x 32 x 67 mm. VASCULATURE: No aortic aneurysm. Left central venous catheter remain in the right ventricle. MUSCULOSKELETAL: No acute osseous abnormalities SOFT TISSUES/LYMPH NODES: Unremarkable. LOWER NECK: No significant findings. UPPER ABDOMEN: No significant findings. IMPRESSION: 1. Small moderate right pleural effusion with associated atelectasis. 2. Left central venous catheter with tip terminating in the right ventricle. 3. No evidence for airspace disease. 4. Right Superior mediastinum lipoma.
--- NOTE | 2023-09-30 13:32 | P.PN ---
Subjective Progress Note Date: 09/30/23 Principal diagnosis: Weakness, pleural effusion. Multiple myeloma In follow-up today patient was returning from imaging studies and he was able to get up out of the wheelchair and ambulate a few feet to the recliner chair and sit down. The anasarca as he had on admit is significantly improved. He has had a thoracentesis, fluid cytology is pending, he is being assessed to see if there is any recurrence of the pleural effusion, he does have a persistent, dry, hacking cough when he takes a deep breath. He denies any shortness of breath mild activity or at rest. He is tolerating oral intake. No current reports of pain. Objective - Vital Signs Vital signs: Vital Signs Temp 97.5 F L 09/30/23 08:00 Pulse 79 09/30/23 12:00 Resp 16 09/30/23 12:00 BP 109/54 09/30/23 12:00 Pulse Ox 98 09/30/23 12:00 FiO2 Intake & Output 09/29/23 09/30/23 09/30/23 18:59 06:59 18:59 Intake Total 594 110 Balance 594 110 Intake: Oral 594 110 Other: Voiding Method Urinal Urinal Urinal # Voids 1 1 1 # Bowel Movements 1 - Constitutional General appearance: Present: average body habitus, cooperative, no acute distress - EENT Eyes: Present: anicteric sclerae, EOMI ENT: Present: hearing grossly normal - Respiratory Respiratory: right: other (absent breath sounds lower 1/3 of the lung), left: CTA - Cardiovascular Heart sounds: normal: S1, S2 - Peripheral edema leg Peripheral Edema: bilateral: Trace - Integumentary Integumentary Comment(s): multiple bruises on the upper extremities Integumentary: Present: normal - Neurologic Neurologic: Present: CNII-XII intact - Musculoskeletal Musculoskeletal: Present: generalized weakness, strength equal bilaterally - Psychiatric Psychiatric: Present: A&O x's 3, appropriate affect, intact judgment & insight - Labs CBC & Chem 7: 09/30/23 09:42 09/30/23 09:42 Labs: Abnormal Lab Results - Last 24 Hours (Table) 09/29/23 09/30/23 09/30/23 Range/Units 10:50 09:42 09:42 RBC 2.68 L (4.30-5.90) m/uL Hgb 9.8 L (13.0-17.5) gm/dL Hct 29.4 L (39.0-53.0) % MCV 109.7 H (80.0-100.0) fL MCH 36.7 H (25.0-35.0) pg RDW 17.5 H (11.5-15.5) % Plt Count 85 L 90 L (150-450) k/uL Lymphocytes # (Manual) 0.32 L 0.36 L (1.0-4.8) k/uL Macrocytosis Marked A Sodium 124 L (137-145) mmol/L Chloride 92 L (98-107) mmol/L BUN 39 H (9-20) mg/dL Creatinine 5.81 H (0.66-1.25) mg/dL Glucose 172 H (74-99) mg/dL Calcium 8.1 L (8.4-10.2) mg/dL Total Protein 4.6 L (6.3-8.2) g/dL Albumin 2.7 L (3.5-5.0) g/dL Microbiology - Last 24 Hours (Table) 09/27/23 09:30 Gram Stain - Preliminary Pleural Fluid Body Fluid Culture - Preliminary - Imaging and Cardiology MRI - head: report reviewed Assessment and Plan (1) Multiple myeloma Current Visit: No Status: Chronic Priority: Medium Code(s): C90.00 - MULTIPLE MYELOMA NOT HAVING ACHIEVED REMISSION SNOMED Code(s): 525457312 (2) Pleural effusion Current Visit: Yes Status: Acute Priority: High Code(s): J90 - PLEURAL EFFUSION, NOT ELSEWHERE CLASSIFIED SNOMED Code(s): 96605106 (3) Weakness Current Visit: Yes Status: Acute Priority: High Code(s): R53.1 - WEAKNESS SNOMED Code(s): 38007480 Plan: Multiple myeloma -Well controlled disease for several years -Patient is currently on 2.5 mg of Revlimid on Tuesdays and Fridays. Hold Revlimid for now while patient is acutely ill -Patient CBC from the office on 09/08 was reviewed. Hemoglobin 11.3 platelets 93,000, normal WBC. CBC has been mostly stable since admit. Patient's hemoglobin is noted to be at 9.8. No transfusion right now. WBCs and platelets are stable. Continue to monitor CBC inpt. -Myeloma labs were also drawn in the office on the . They were stable at that time. No additional multiple myeloma labs at this time Pleural effusion -Right pleural effusion status postthoracentesis. Cytology is pending -Patient is having additional imaging to assess for pleural fluid recurrence. -Patient is symptomatic with dry, hacking cough with deep inspiration but, he is not having any shortness of breath. -Pulmonary continues to follow Weakness -Suspect in part related to metabolic encephalopathy as patient has not had dialysis for 4 days now -Patient is doing much better today's compared to admission. - reports discussion of doing PT/OT at home. This is very reasonable. Chronic kidney disease on dialysis -Nephrology has seen pt -dialysis started -Patient has had significant improvement in his mental status, fluid status and in general physical status since having hemodialysis
[2023-09-30 14:20] VITALS: BMI 27.4
--- NOTE | 2023-09-30 14:39 | P.PN ---
Subjective Progress Note Date: 09/30/23 Is a 77-year-old white male with past medical history significant for multiple myeloma, end-stage renal disease maintained on hemodialysis (on a Saturday, , Saturday schedule), previously maintained on peritoneal dialysis, hyperlipidemia, hypertension, coronary artery disease with recent stenting, BPH, GERD, among other things. Patient presented to emergency room yesterday morning with a chief complaint of multiple days of generalized weakness and it is progressively worse. Yesterday, the patient attempted to stand up and fell onto his knees. Denies head trauma. No focal deficits. Brain CT on arrival does not show any intracranial hemorrhage or mass effect. Due to his weakness, he di d miss his hemodialysis treatment yesterday. Patient is currently in the emergency department, room 4. He is on room air. SpO2 96%. He does endorse some exertional shortness of breath. Denies chest pain. Denies worsening lower extremity swelling. He denies any fevers. He does have an occasional intermittent mild nonproductive cough. No significant sputum production. Denies any nausea, vomiting, diarrhea, abdominal pain. He does have a abdominal peritoneal dialysis catheter. Also has a left subclavian hemodialysis catheter. Chest x-ray done on admission demonstrated a moderate size right pleural effusion. For this reason we are consulted. Of note, patient recently had a heart catheterization done 09/03/2023, he received a stent to the OM1. Denies missing any doses of Plavix or aspirin. He does have multiple myeloma, maintained on Revlimid. His oncologist is reportedly Dr. Whitt. CBC: WBC count 4.5, hemoglobin 10.7, hematocrit 32.3, platelets 101. BMP: Sodium 131, potassium 4.3, chloride 97, serum bicarb 23, BUN 77, creatinine 7.38, glucose 96. Lactic acid level 0.9. LFTs not elevated. Ammonia less than 9. Troponins mildly elevated but flat, 0.066, 0.054, and 0.056 respectively. Negative for influenza, RSV, COVID. Patient denies prior history of pleural effusions or thoracentesis. Afebrile. Hemodynamically stable. Progress note dated September 26, 2023. The patient is seen in room 352. The patient is not receiving any IV fluids. The patient is on room air. The plans for hemodialysis today is to remove 1.5 L of fluid. A chest x-ray was ordered for tomorrow. The patient has a right- sided pleural effusion. We are going to attempt a thoracentesis, but the patient will not be completed with hemodialysis till afternoon. No new labs today. Progress note dated September 27, 2023. The patient is seen today in room 352. The patient did have a right-sided thor acentesis earlier today, with 1.5 L of fluid being removed from the right pleural space. Patient tolerated procedure well. Currently, he is on room air. Is not receiving any IV fluid. No plans for hemodialysis today. Labs today include a sodium 133, potassium 4.3, chlorides 101, CO2 23, BUN 21, and creatinine 3.92. White Count 4.4, Hemoglobin 11.4, Hematocrit 34.2, Platelet Count 96,000. Chest x-ray shows improvement in the right-sided pleural effusion, without a postthoracentesis pneumothorax. Progress note dated September 28, 2023. The patient is seen today in room 352. His is in the room as is his daughter. Currently he is on room air. He is not receiving any IV fluids. He is scheduled for hemodialysis today, and apparently also has a scheduled MRI. Currently, his cough is improved. The fluid was sent for analysis, but is not yet back. No new labs noted. The pleural fluid appears to be an exudate, as the protein is more than 3 g. It is actually 3210 mg. The fluid LDH is 151. Progress note dated September 29, 2023. The patient is seen today in room 352. He is resting comfortably in bed. He is not on any fluids. He is not receiving any supplemental oxygen. His cough, is improved, but he still has a cough. His chest x-ray today continues to show a pleural effusion, on the right. It may be reaccumulating. No new labs today. Clinically, the patient appears much more stable. On 09/30/2023, the patient is being seen for a follow-up. The patient is doing well and the shortness of breath improved following the thoracentesis. The fluid cytology is still pending for now. The follow-up chest x-ray postthoracentesis showed improvement in the volume status and the patient continues to have some small amount of right-sided pleural effusion. Nevertheless, he continues to have persistent cough which is dry which is been ongoing for the past 4 months. The patient has a white cell count of 4 with a hemoglobin 9.8 and a platelet count of 19. Noted the patient has history of multiple myeloma.. Sodium levels at 124 with a potassium level of 3.7, BUN is 39 with a creatinine of 5.8 and a serum bicarb is currently at 25. Thoracentesis was done on 09/27/2023. The patient has end-stage renal disease on hemodialysis 3 times a week. The patient is also known to have CAD, hypertension hyperlipidemia and chronic multiple myeloma. Objective - Vital Signs Vital signs: Vital Signs Temp 97.5 F L 09/30/23 08:00 Pulse 78 09/30/23 08:00 Resp 16 09/30/23 08:00 BP 107/52 09/30/23 08:00 Pulse Ox 98 09/30/23 08:00 FiO2 Intake & Output 09/29/23 09/30/23 09/30/23 18:59 06:59 18:59 Intake Total 594 0 Balance 594 0 Intake: Oral 594 0 Other: Voiding Method Urinal Urinal # Voids 1 1 - Exam No acute distress, oriented 3. Currently on room air. HEENT examination is grossly unremarkable. Mucous membranes are moist. No oral lesions. Neck supple. Full range of motion. No adenopathy thyromegaly or neck vein distention. Cardiovascular examination reveals regular rhythm rate. S1-S2 normal. No S3 or S4. No discernible murmur noted. Heart sounds distant. Lungs reveal improved breath sounds at the right lung base. Minimal dullness on percussion. Left lung is clear. No crackles. No wheezes. Abdomen soft bowel sounds are heard. No masses or tenderness. Extremities are intact. No cyanosis clubbing or edema. Skin is without rash or lesion. Neurologic examination is brief but nonfocal. - Labs CBC & Chem 7: 09/30/23 09:42 09/30/23 09:42 Labs: Abnormal Lab Results - Last 24 Hours (Table) 09/29/23 09/29/23 09/30/23 Range/Units 10:50 10:50 09:42 RBC 2.87 L 2.68 L (4.30-5.90) m/uL Hgb 10.1 L 9.8 L (13.0-17.5) gm/dL Hct 30.8 L 29.4 L (39.0-53.0) % MCV 107.3 H 109.7 H (80.0-100.0) fL MCH 35.2 H 36.7 H (25.0-35.0) pg RDW 17.2 H 17.5 H (11.5-15.5) % Plt Count 85 L 90 L (150-450) k/uL Lymphocytes # (Manual) 0.32 L (1.0-4.8) k/uL Macrocytosis Marked A Marked A Sodium 128 L (137-145) mmol/L Chloride 95 L (98-107) mmol/L BUN 25 H (9-20) mg/dL Creatinine 4.54 H (0.66-1.25) mg/dL Glucose 100 H (74-99) mg/dL Calcium 8.0 L (8.4-10.2) mg/dL Total Protein 4.7 L (6.3-8.2) g/dL Albumin 2.8 L (3.5-5.0) g/dL 09/30/23 Range/Units 09:42 RBC (4.30-5.90) m/uL Hgb (13.0-17.5) gm/dL Hct (39.0-53.0) % MCV (80.0-100.0) fL MCH (25.0-35.0) pg RDW (11.5-15.5) % Plt Count (150-450) k/uL Lymphocytes # (Manual) (1.0-4.8) k/uL Macrocytosis Sodium 124 L (137-145) mmol/L Chloride 92 L (98-107) mmol/L BUN 39 H (9-20) mg/dL Creatinine 5.81 H (0.66-1.25) mg/dL Glucose 172 H (74-99) mg/dL Calcium 8.1 L (8.4-10.2) mg/dL Total Protein 4.6 L (6.3-8.2) g/dL Albumin 2.7 L (3.5-5.0) g/dL Microbiology - Last 24 Hours (Table) 09/27/23 09:30 Gram Stain - Preliminary Pleural Fluid Body Fluid Culture - Preliminary Assessment and Plan Plan: Shortness of breath, improved following a right-sided thoracentesis was done on 09/27/2023. A total of 1.5 L of fluid was aspirated. Fluid cytology still pending for now. The fluid is an exudate based on the protein criteria Right-sided pleural effusion postthoracentesis, exudative, awaiting cytology, awaiting CAT scan of the chest. Chronic persistent cough End-stage renal disease, previously maintained on peritoneal dialysis, transitioned to hemodialysis, on a Saturday, , Saturday schedule. Elevated troponins, rule out an non-ST elevation IA. Coronary artery disease with recent history of PCI/stenting of the OM1 on 09/03/2023. History of hyperlipidemia. History of hypertension. History of multiple myeloma. Anemia of chronic disease. Chronic thrombocytopenia. History of BPH. History of GERD without esophagitis. Plan: Awaiting pleural fluid cytology Obtain noncontrast CAT scan of the chest Patient is currently on room air oxygen Encourage use of incentive spirometer Will continue to follow.
--- NOTE | 2023-09-30 17:14 | P.PN ---
Subjective Progress Note Date: 09/30/23 Dean Earl, is a77 year old male who presented to [facility] emergency room with a chief complaint of generalized weakness and fall He was evaluated in the emergency room vital examination on presentation revealed a temperature of 97.3 pulse 67 respiration 22 blood pressure 141/74 pu lse ox 95% on room air Laboratory data reveals a white blood count of 4.5 hemoglobin 10.7 platelet c ount 101 BUN 77 creatinine 7.38 troponin level 0.066 Testing in the emergency room revealed computed tomography scan of the brain revealed chronic small vessel ischemic changes without acute intracranial process, chest x-ray done in the emergency room revealed [id number] right pleural effusion, EKG revealed sinus rhythm with first-degree AV block and left axis deviation Patient was admitted to medical floor for further evaluation and treatment Past medical history is significant for end-stage renal disease on hemodialysis, hypertension, hyperlipidemia, coronary artery disease with history of angioplasty and stent placement, On 09/25/2023 patient is resting comfortably in bed at bedside. Possible thoracentesis today per pulmonary. Neurology services have been consulted for o ngoing confusion. Patient also to get hemodialysis today per nephrology services. Current vital signs temp 98.2, heart 77, respiratory rate 20, blood pressure 143/80 with pulse ox 96% on room air on 09/26/2023 patient was seen and examined on the medical floor he is alert slightly confused in no apparent distress, there is no fever or chills no headache or dizziness no chest pain no shortness of breath no cough no nausea or vomiting no abdominal pain no diarrhea and no urinary symptoms. Vital exam reveals a temperature of 97.8 pulse 87 respiration 16 and blood pressure 153/85 pulse ox 95% on room air on 09/27/2023 patient was seen and examined on the medical floor he is alert and oriented 3 in no apparent distress he is complaining of cough and difficulty taking it breath otherwise he denies any complaints there is no fever or chills no headache or dizziness, no chest pain no nausea or vomiting no abdominal pain no diarrhea and no urinary symptoms. He underwent right sided thoracentesis earlier today with 1.5 L of fluid removed, patient is receiving hemodialysis, pulmonary and nephrologyand hematology are following on 09/28/2023 patient was seen and examined on the medical floor he is alert and oriented 3 in no apparent distress he is complaining of cough and difficulty taking it breath otherwise he denies any complaints there is no fever or chills no headache or dizziness, no chest pain no nausea or vomiting no abdominal pain no diarrhea and no urinary symptoms. patient is scheduled for hemodialysis today, he is also scheduled for brain MRI, will continue to follow closely. on 09/28/2022 for patient's alert and oriented 3. Patient underwent MRI of the brain showing no evidence of intracranial mass or acute subacute infarct nonspecific white matter changes likely secondary to small vessel ischemic disease.current vital signs temp 97.6, heart rate 76, respiratory rate 16, blood pressure 126/69 with pulse ox 96% on room air.neurology, nephrology and pulmon sera services are following on 09/30/2023 patient was seen and examined on the medical floor he is alert and oriented 3 in no apparent distress there is no fever or chills no headache or dizziness, shortness of breath has improved, there is no chest pain he has occasional cough no nausea or vomiting no abdominal pain no diarrhea and no urinary symptoms, at this time we are still awaiting pleural fluid cytology, pulmonary recommending computed tomography scan of the chest without contrast, MRI of the brain and neurology input reviewed, will continue to follow closely Objective - Vital Signs Vital signs: Vital Signs Temp 97.7 F 09/30/23 04:00 Pulse 81 09/30/23 04:00 Resp 16 09/30/23 04:00 BP 129/68 09/30/23 04:00 Pulse Ox 98 09/30/23 04:00 FiO2 Intake & Output 09/29/23 09/30/23 09/30/23 18:59 06:59 18:59 Intake Total 594 Balance 594 Intake: Oral 594 Other: Voiding Method Urinal Urinal # Voids 1 1 - Exam In general patient is alert and oriented x 3 in no distress HEENT head normocephalic and atraumatic Neck is supple no JVD no goiter no lymphadenopathy no carotid bruit Chest examination is clear to auscultation no crackles no wheezing Cardiac exam reveals regular heart sounds S1 and S2 no gallops no murmurs Abdomen is soft nontender no organomegaly with normal bowel sounds Extremity exam reveals no edema no cyanosis or clubbing Neurological examination reveals no gross focal deficits - Labs CBC & Chem 7: 09/30/23 09:42 09/30/23 09:42 Labs: Abnormal Lab Results - Last 24 Hours (Table) 09/29/23 09/29/23 Range/Units 10:50 10:50 RBC 2.87 L (4.30-5.90) m/uL Hgb 10.1 L (13.0-17.5) gm/dL Hct 30.8 L (39.0-53.0) % MCV 107.3 H (80.0-100.0) fL MCH 35.2 H (25.0-35.0) pg RDW 17.2 H (11.5-15.5) % Plt Count 85 L (150-450) k/uL Lymphocytes # (Manual) 0.32 L (1.0-4.8) k/uL Macrocytosis Marked A Sodium 128 L (137-145) mmol/L Chloride 95 L (98-107) mmol/L BUN 25 H (9-20) mg/dL Creatinine 4.54 H (0.66-1.25) mg/dL Glucose 100 H (74-99) mg/dL Calcium 8.0 L (8.4-10.2) mg/dL Total Protein 4.7 L (6.3-8.2) g/dL Albumin 2.8 L (3.5-5.0) g/dL Microbiology - Last 24 Hours (Table) 09/27/23 09:30 Gram Stain - Preliminary Pleural Fluid Body Fluid Culture - Preliminary Assessment and Plan Plan: generalized weakness Fall with bilateral knee injury right pleural effusion Elevated troponin level Underlying history of hypertension Underlying history of hyperlipidemia Underlying history of coronary artery disease with history of stent placement Underlying history of end-stage renal disease on hemodialysis History of multiple myeloma at this time patient will be admitted to medical floor home medications reviewed and reordered pulmonary, cardiology and nephrology services are following Status post thoracentesis Will follow closely
[2023-10-01] MEDS: IPRATROPIUM-ALBUTEROL 3 ML NEB INHALATION SCH (11:15)
--- NOTE | 2023-10-01 12:03 | P.PN ---
Subjective Patient is seen in follow-up for end-stage renal disease. He is maintained on hemodialysis on Saturday schedule. Resting in bed. Tolerating dialysis well. Hemodynamically stable. No chest pain or shortness of breath. Vital signs are stable. General: No acute distress. HEENT: Head exam is unremarkable. LUNGS: No audible rhonchi or wheezes. HEART: Rate and Rhythm are regular. ABDOMEN: Nontender. EXTREMITITES: No edema. Objective - Vital Signs Vital signs: Vital Signs Temp 97.6 F 10/01/23 08:00 Pulse 88 10/01/23 11:27 Resp 16 10/01/23 08:00 BP 115/67 10/01/23 08:00 Pulse Ox 97 10/01/23 08:00 FiO2 Intake & Output 09/30/23 10/01/23 10/01/23 18:59 06:59 18:59 Intake Total 110 400 120 Output Total 2400 Balance 110 -2000 120 Weight 81.9 kg Intake: Oral 110 120 Hemodialysis 400 Output: Hemodialysis 2400 Other: Voiding Method Urinal Urinal Urinal # Voids 1 0 # Bowel Movements 1 1 - Labs CBC & Chem 7: 09/30/23 09:42 09/30/23 09:42 Labs: Microbiology - Last 24 Hours (Table) 09/27/23 09:30 Gram Stain - Final Pleural Fluid Body Fluid Culture - Final Assessment and Plan Plan: Assessment: 1. End-stage renal disease maintained on hemodialysis on Saturday schedule via left chest permacath. 2. Pleural effusion status post right-sided thoracentesis with 1.[address] chest from September 30, 2023 showed small to moderate right pleural effusion. 3. Hypertension with chronic kidney disease. Stable. 4. Chronic kidney disease mineral bone disease. On Tums. 5. Coronary artery disease with recent cardiac stent placement. 6. Hyponatremia secondary to chronic kidney disease. Thiazide diuretic discontinued. 7. Anemia of chronic kidney disease. Plan: Currently seen while undergoing hemodialysis. Maintain 1500 cc fluid restriction. Hold amlodipine for systolic blood pressure less than 120. Check iron studies.
--- NOTE | 2023-10-01 12:24 | P.PN ---
Subjective Progress Note Date: 10/01/23 I am seeing the patient for the first time during this admission. Please refer to Dr. Johnson's note for further details. It seems that patient had confusion with thick tongue slurred speech generalized weakness and of suspected metabolic encephalopathy. His mentation has drastically improved according to the who is at bedside. Patient feels he is doing better. Objective - Vital Signs Vital signs: Vital Signs Temp 97.6 F 10/01/23 08:00 Pulse 88 10/01/23 11:27 Resp 16 10/01/23 08:00 BP 115/67 10/01/23 08:00 Pulse Ox 97 10/01/23 08:00 FiO2 Intake & Output 09/30/23 10/01/23 10/01/23 18:59 06:59 18:59 Intake Total 110 400 120 Output Total 2400 Balance 110 -2000 120 Weight 81.9 kg Intake: Oral 110 120 Hemodialysis 400 Output: Hemodialysis 2400 Other: Voiding Method Urinal Urinal Urinal # Voids 1 0 # Bowel Movements 1 1 - Exam General: Lying in bed and is not in acute distress. Neuro: The patient is awake alert oriented to self, place and time. Is following simple commands. No aphasia no neglect. Pupils are round equal reactive to light. Visual eaton are full to confrontation. Motor: Strength is uppers are lifting above gravity equally and wiggling toes symmetrically. - Labs CBC & Chem 7: 09/30/23 09:42 09/30/23 09:42 Labs: Microbiology - Last 24 Hours (Table) 09/27/23 09:30 Gram Stain - Final Pleural Fluid Body Fluid Culture - Final Assessment and Plan Assessment: * Altered mental status, likely due to metabolic encephalopathy. Reasons multifactorial as mentioned below---mentation improved * Episode of "thick tongue" slurred speech, generalized weakness, without any other lateralizing symptoms. Suspect from metabolic encephalopathy, rule out stroke/TIA. * Bilateral ICA stenosis, moderate degree 50 to 69%. * Hyponatremia improved, 133 * Chronic renal failure, on hemodialysis every Saturday and Saturday * Volume overload * Macrocytic anemia on B12 folate replacement * Pleural effusion, may need thoracentesis. Pulmonary on board. * CHF with EF 45 to 50% * Coronary artery disease with recent cardiac stent placement. * Multiple myeloma, currently on Revlimid on Tuesdays and Fridays. Oncology following. Plan: * 2D echo revealed mildly impaired low normal systolic function with global hypokinesis, with EF 45 to 50%. No clear evidence of segmental wall motion abnormality. Left atrium is mildly increased in volume. * Carotid Doppler, revealed 50 to 69% stenosis of bilateral carotid bifurcations by peak systolic velocity. Antegrade flow in both vertebral arteries. * MRI of the brain revealed no evidence of intracranial mass or acute/subacute infarct. Nonspecific white matter changes, likely secondary to small vessel ischemic disease. I personally reviewed MRI agree with the findings. * Per Dr. Johnson, consider vascular surgery consultation for moderate bilateral ICA stenosis. No evidence of acute stroke on MRI. Other option is surveillance with follow-up carotid Doppler in 6 months. * Continue aspirin 81 mg, Plavix 75 mg and Crestor 20 mg (Lipitor 40 mg in the hospital). * Hemoglobin A1c 4.9 * Lipid panel cholesterol 98, LDL 36, HDL 36, triglycerides 124. Continue Lipitor 40 mg daily. Lipids well-controlled. * Patient has macrocytic anemia, already on B12, folate replacement. No need to check levels. * Other medical management as per IM, pulmonary and oncology. * PT OT evaluate gait. * DVT prophylaxis: Heparin 5000 units subcu every 12 hour The plan is discussed with patient and his who is at bedside. There is no further neurological work-up. Will sign off. Please reconsult if needed. Time with Patient: Less than 30
--- NOTE | 2023-10-01 15:38 | P.PN ---
Subjective Progress Note Date: 10/01/23 Is a 77-year-old white male with past medical history significant for multiple myeloma, end-stage renal disease maintained on hemodialysis (on a Saturday, , Saturday schedule), previously maintained on peritoneal dialysis, hyperlipidemia, hypertension, coronary artery disease with recent stenting, BPH, GERD, among other things. Patient presented to emergency room yesterday morning with a chief complaint of multiple days of generalized weakness and it is progressively worse. Yesterday, the patient attempted to stand up and fell onto his knees. Denies head trauma. No focal deficits. Brain CT on arrival does not show any intracranial hemorrhage or mass effect. Due to his weakness, he di d miss his hemodialysis treatment yesterday. Patient is currently in the emergency department, room 4. He is on room air. SpO2 96%. He does endorse some exertional shortness of breath. Denies chest pain. Denies worsening lower extremity swelling. He denies any fevers. He does have an occasional intermittent mild nonproductive cough. No significant sputum production. Denies any nausea, vomiting, diarrhea, abdominal pain. He does have a abdominal peritoneal dialysis catheter. Also has a left subclavian hemodialysis catheter. Chest x-ray done on admission demonstrated a moderate size right pleural effusion. For this reason we are consulted. Of note, patient recently had a heart catheterization done 09/03/2023, he received a stent to the OM1. Denies missing any doses of Plavix or aspirin. He does have multiple myeloma, maintained on Revlimid. His oncologist is reportedly Dr. Whitt. CBC: WBC count 4.5, hemoglobin 10.7, hematocrit 32.3, platelets 101. BMP: Sodium 131, potassium 4.3, chloride 97, serum bicarb 23, BUN 77, creatinine 7.38, glucose 96. Lactic acid level 0.9. LFTs not elevated. Ammonia less than 9. Troponins mildly elevated but flat, 0.066, 0.054, and 0.056 respectively. Negative for influenza, RSV, COVID. Patient denies prior history of pleural effusions or thoracentesis. Afebrile. Hemodynamically stable. Progress note dated September 26, 2023. The patient is seen in room 352. The patient is not receiving any IV fluids. The patient is on room air. The plans for hemodialysis today is to remove 1.5 L of fluid. A chest x-ray was ordered for tomorrow. The patient has a right- sided pleural effusion. We are going to attempt a thoracentesis, but the patient will not be completed with hemodialysis till afternoon. No new labs today. Progress note dated September 27, 2023. The patient is seen today in room 352. The patient did have a right-sided thor acentesis earlier today, with 1.5 L of fluid being removed from the right pleural space. Patient tolerated procedure well. Currently, he is on room air. Is not receiving any IV fluid. No plans for hemodialysis today. Labs today include a sodium 133, potassium 4.3, chlorides 101, CO2 23, BUN 21, and creatinine 3.92. White Count 4.4, Hemoglobin 11.4, Hematocrit 34.2, Platelet Count 96,000. Chest x-ray shows improvement in the right-sided pleural effusion, without a postthoracentesis pneumothorax. Progress note dated September 28, 2023. The patient is seen today in room 352. His is in the room as is his daughter. Currently he is on room air. He is not receiving any IV fluids. He is scheduled for hemodialysis today, and apparently also has a scheduled MRI. Currently, his cough is improved. The fluid was sent for analysis, but is not yet back. No new labs noted. The pleural fluid appears to be an exudate, as the protein is more than 3 g. It is actually 3210 mg. The fluid LDH is 151. Progress note dated September 29, 2023. The patient is seen today in room 352. He is resting comfortably in bed. He is not on any fluids. He is not receiving any supplemental oxygen. His cough, is improved, but he still has a cough. His chest x-ray today continues to show a pleural effusion, on the right. It may be reaccumulating. No new labs today. Clinically, the patient appears much more stable. On 09/30/2023, the patient is being seen for a follow-up. The patient is doing well and the shortness of breath improved following the thoracentesis. The fluid cytology is still pending for now. The follow-up chest x-ray postthoracentesis showed improvement in the volume status and the patient continues to have some small amount of right-sided pleural effusion. Nevertheless, he continues to have persistent cough which is dry which is been ongoing for the past 4 months. The patient has a white cell count of 4 with a hemoglobin 9.8 and a platelet count of 19. Noted the patient has history of multiple myeloma.. Sodium levels at 124 with a potassium level of 3.7, BUN is 39 with a creatinine of 5.8 and a serum bicarb is currently at 25. Thoracentesis was done on 09/27/2023. The patient has end-stage renal disease on hemodialysis 3 times a week. The patient is also known to have CAD, hypertension hyperlipidemia and chronic multiple myeloma. On 10/01/2023, the patient is being seen for a follow-up. Doing well. No specific complaints. Still having some dry cough. CAT scan of the chest was done yesterday and the patient was found to have a small residual right-sided pleural effusion. Pleural fluid cytology from her previous pleurocentesis showed no evidence of any malignancy. The patient continues to undergo hemodialysis. Blood work from today shows a white cell count of 4 with a hemoglobin 9.8, sodium is at 124, BUN 39 with a creatinine of 5.8. The patient denies having any significant shortness of breath and the patient remains on room air oxygen. The patient is also on Lasix 80 mg p.o. twice a day. Urine output remains quite diminished at this point in time. No fever. No chills. No other complaints otherwise. Objective - Vital Signs Vital signs: Vital Signs Temp 97.6 F 10/01/23 08:00 Pulse 80 10/01/23 08:00 Resp 16 10/01/23 08:00 BP 115/67 10/01/23 08:00 Pulse Ox 97 10/01/23 08:00 FiO2 Intake & Output 09/30/23 10/01/23 10/01/23 18:59 06:59 18:59 Intake Total 110 400 120 Output Total 2400 Balance 110 -2000 120 Weight 81.9 kg Intake: Oral 110 120 Hemodialysis 400 Output: Hemodialysis 2400 Other: Voiding Method Urinal Urinal Urinal # Voids 1 0 # Bowel Movements 1 1 - Exam No acute distress, oriented 3. Currently on room air. HEENT examination is grossly unremarkable. Mucous membranes are moist. No oral lesions. Neck supple. Full range of motion. No adenopathy thyromegaly or neck vein distention. Cardiovascular examination reveals regular rhythm rate. S1-S2 normal. No S3 or S4. No discernible murmur noted. Heart sounds distant. Lungs reveal improved breath sounds at the right lung base. Minimal dullness on percussion. Left lung is clear. No crackles. No wheezes. Abdomen soft bowel sounds are heard. No masses or tenderness. Extremities are intact. No cyanosis clubbing or edema. Skin is without rash or lesion. Neurologic examination is brief but nonfocal. - Labs CBC & Chem 7: 09/30/23 09:42 09/30/23 09:42 Labs: Abnormal Lab Results - Last 24 Hours (Table) 09/30/23 09/30/23 Range/Units 09:42 09:42 RBC 2.68 L (4.30-5.90) m/uL Hgb 9.8 L (13.0-17.5) gm/dL Hct 29.4 L (39.0-53.0) % MCV 109.7 H (80.0-100.0) fL MCH 36.7 H (25.0-35.0) pg RDW 17.5 H (11.5-15.5) % Plt Count 90 L (150-450) k/uL Lymphocytes # (Manual) 0.36 L (1.0-4.8) k/uL Macrocytosis Marked A Sodium 124 L (137-145) mmol/L Chloride 92 L (98-107) mmol/L BUN 39 H (9-20) mg/dL Creatinine 5.81 H (0.66-1.25) mg/dL Glucose 172 H (74-99) mg/dL Calcium 8.1 L (8.4-10.2) mg/dL Total Protein 4.6 L (6.3-8.2) g/dL Albumin 2.7 L (3.5-5.0) g/dL Microbiology - Last 24 Hours (Table) 09/27/23 09:30 Gram Stain - Final Pleural Fluid Body Fluid Culture - Final Assessment and Plan Plan: Shortness of breath, improved following a right-sided thoracentesis was done on 09/27/2023. A total of 1.5 L of fluid was aspirated. Fluid cytology still pending for now. The fluid is an exudate based on the protein criteria, and the pleural fluid cytology was negative for malignancy. Follow-up CAT scan of the chest showed a small residual right-sided pleural effusion. Right-sided pleural effusion postthoracentesis, exudative, pleural fluid cytology is negative. Rule out parapneumonic effusion Chronic persistent cough, CAT scan of the chest was noted End-stage renal disease, previously maintained on peritoneal dialysis, transitioned to hemodialysis, on a Saturday, , Saturday schedule. Elevated troponins, rule out an non-ST elevation IA. Coronary artery disease with recent history of PCI/stenting of the OM1 on 09/03/2023. History of hyperlipidemia. History of hypertension. History of multiple myeloma. Anemia of chronic disease. Chronic thrombocytopenia. History of BPH. History of GERD without esophagitis. Plan: CAT scan of the chest was reviewed. Small residual right-sided pleural effusion. Otherwise no other acute abnormalities. Patient is currently on room air oxygen Encourage use of incentive spirometer [facility] and congestion Hemodialysis ultrafiltration today Continue Lasix Will continue to follow.
[2023-10-01 17:13] LABS: % Iron Saturation 34.59 (15.00-50.00)
--- NOTE | 2023-10-01 17:16 | P.PN ---
Subjective Progress Note Date: 10/01/23 Dean Earl, is a77 year old male who presented to [facility] emergency room with a chief complaint of generalized weakness and fall He was evaluated in the emergency room vital examination on presentation revealed a temperature of 97.3 pulse 67 respiration 22 blood pressure 141/74 pu lse ox 95% on room air Laboratory data reveals a white blood count of 4.5 hemoglobin 10.7 platelet c ount 101 BUN 77 creatinine 7.38 troponin level 0.066 Testing in the emergency room revealed computed tomography scan of the brain revealed chronic small vessel ischemic changes without acute intracranial process, chest x-ray done in the emergency room revealed [id number] right pleural effusion, EKG revealed sinus rhythm with first-degree AV block and left axis deviation Patient was admitted to medical floor for further evaluation and treatment Past medical history is significant for end-stage renal disease on hemodialysis, hypertension, hyperlipidemia, coronary artery disease with history of angioplasty and stent placement, On 09/25/2023 patient is resting comfortably in bed at bedside. Possible thoracentesis today per pulmonary. Neurology services have been consulted for o ngoing confusion. Patient also to get hemodialysis today per nephrology services. Current vital signs temp 98.2, heart 77, respiratory rate 20, blood pressure 143/80 with pulse ox 96% on room air on 09/26/2023 patient was seen and examined on the medical floor he is alert slightly confused in no apparent distress, there is no fever or chills no headache or dizziness no chest pain no shortness of breath no cough no nausea or vomiting no abdominal pain no diarrhea and no urinary symptoms. Vital exam reveals a temperature of 97.8 pulse 87 respiration 16 and blood pressure 153/85 pulse ox 95% on room air on 09/27/2023 patient was seen and examined on the medical floor he is alert and oriented 3 in no apparent distress he is complaining of cough and difficulty taking it breath otherwise he denies any complaints there is no fever or chills no headache or dizziness, no chest pain no nausea or vomiting no abdominal pain no diarrhea and no urinary symptoms. He underwent right sided thoracentesis earlier today with 1.5 L of fluid removed, patient is receiving hemodialysis, pulmonary and nephrologyand hematology are following on 09/28/2023 patient was seen and examined on the medical floor he is alert and oriented 3 in no apparent distress he is complaining of cough and difficulty taking it breath otherwise he denies any complaints there is no fever or chills no headache or dizziness, no chest pain no nausea or vomiting no abdominal pain no diarrhea and no urinary symptoms. patient is scheduled for hemodialysis today, he is also scheduled for brain MRI, will continue to follow closely. on 09/28/2022 for patient's alert and oriented 3. Patient underwent MRI of the brain showing no evidence of intracranial mass or acute subacute infarct nonspecific white matter changes likely secondary to small vessel ischemic disease.current vital signs temp 97.6, heart rate 76, respiratory rate 16, blood pressure 126/69 with pulse ox 96% on room air.neurology, nephrology and pulmon sera services are following on 09/30/2023 patient was seen and examined on the medical floor he is alert and oriented 3 in no apparent distress there is no fever or chills no headache or dizziness, shortness of breath has improved, there is no chest pain he has occasional cough no nausea or vomiting no abdominal pain no diarrhea and no urinary symptoms, at this time we are still awaiting pleural fluid cytology, pulmonary recommending computed tomography scan of the chest without contrast, MRI of the brain and neurology input reviewed, will continue to follow closely. on 10/01/2023 patient was seen and examined on the medical floor he is alert and oriented 3 in no apparent distress, he is complaining of cough and generalized weakness otherwise he denies any complaints, there is no fever or chills no headache or dizziness no chest pain no shortness of breath, no nausea or vomiting no abdominal pain no diarrhea and no urinary symptoms, he received hemodialysis today, cytology from the thoracentesis fluid was negative for malignancy, per pulmonary no need to repeat thoracentesis, will continue to monitor possible discharge in the next 1-2 days Objective - Vital Signs Vital signs: Vital Signs Temp 97.4 F L 10/01/23 12:47 Pulse 100 10/01/23 12:47 Resp 18 10/01/23 12:47 BP 127/74 10/01/23 12:47 Pulse Ox 97 10/01/23 08:00 FiO2 Intake & Output 09/30/23 10/01/23 10/01/23 18:59 06:59 18:59 Intake Total 110 400 520 Output Total 2400 2400 Balance Weight 81.9 kg Intake: Oral 110 120 Hemodialysis 400 400 Output: Hemodialysis 2400 2400 Other: Voiding Method Urinal Urinal Urinal # Voids 1 0 # Bowel Movements 1 1 - Exam In general patient is alert and oriented x 3 in no distress HEENT head normocephalic and atraumatic Neck is supple no JVD no goiter no lymphadenopathy no carotid bruit Chest examination is clear to auscultation no crackles no wheezing Cardiac exam reveals regular heart sounds S1 and S2 no gallops no murmurs Abdomen is soft nontender no organomegaly with normal bowel sounds Extremity exam reveals no edema no cyanosis or clubbing Neurological examination reveals no gross focal deficits - Labs CBC & Chem 7: 09/30/23 09:42 09/30/23 09:42 Labs: Microbiology - Last 24 Hours (Table) 09/27/23 09:30 Gram Stain - Final Pleural Fluid Body Fluid Culture - Final Assessment and Plan Plan: generalized weakness Fall with bilateral knee injury right pleural effusion Elevated troponin level Underlying history of hypertension Underlying history of hyperlipidemia Underlying history of coronary artery disease with history of stent placement Underlying history of end-stage renal disease on hemodialysis History of multiple myeloma at this time patient will be admitted to medical floor home medications reviewed and reordered pulmonary, cardiology and nephrology services are following Status post thoracentesis Will follow closely
--- NOTE | 2023-10-01 20:24 | P.PN ---
Subjective Progress Note Date: 10/01/23 Principal diagnosis: Weakness, pleural effusion. Multiple myeloma In follow-up today patient is receiving dialysis. He cont to do well, no acute events, fluid balance remains stable, no recurrent edema. No fevers documented or pain reported Objective - Vital Signs Vital signs: Vital Signs Temp 97.6 F 10/01/23 08:00 Pulse 80 10/01/23 08:00 Resp 16 10/01/23 08:00 BP 115/67 10/01/23 08:00 Pulse Ox 97 10/01/23 08:00 FiO2 Intake & Output 09/30/23 10/01/23 10/01/23 18:59 06:59 18:59 Intake Total 110 400 120 Output Total 2400 Balance 110 -2000 120 Weight 81.9 kg Intake: Oral 110 120 Hemodialysis 400 Output: Hemodialysis 2400 Other: Voiding Method Urinal Urinal # Voids 1 0 # Bowel Movements 1 1 - Constitutional General appearance: Present: average body habitus, cooperative, no acute distress - EENT Eyes: Present: anicteric sclerae, EOMI ENT: Present: hearing grossly normal - Respiratory Details: resp even and unlabored at rest - Cardiovascular Details: radial pulse 2+, regular - Peripheral edema leg Peripheral Edema: bilateral: Trace, Pitting - Gastrointestinal General gastrointestinal: Present: soft - Neurologic Neurologic: Present: CNII-XII intact - Musculoskeletal Musculoskeletal: Present: generalized weakness - Psychiatric Psychiatric: Present: A&O x's 3, appropriate affect, intact judgment & insight - Labs CBC & Chem 7: 09/30/23 09:42 09/30/23 09:42 Labs: Abnormal Lab Results - Last 24 Hours (Table) 09/30/23 09/30/23 Range/Units 09:42 09:42 RBC 2.68 L (4.30-5.90) m/uL Hgb 9.8 L (13.0-17.5) gm/dL Hct 29.4 L (39.0-53.0) % MCV 109.7 H (80.0-100.0) fL MCH 36.7 H (25.0-35.0) pg RDW 17.5 H (11.5-15.5) % Plt Count 90 L (150-450) k/uL Lymphocytes # (Manual) 0.36 L (1.0-4.8) k/uL Macrocytosis Marked A Sodium 124 L (137-145) mmol/L Chloride 92 L (98-107) mmol/L BUN 39 H (9-20) mg/dL Creatinine 5.81 H (0.66-1.25) mg/dL Glucose 172 H (74-99) mg/dL Calcium 8.1 L (8.4-10.2) mg/dL Total Protein 4.6 L (6.3-8.2) g/dL Albumin 2.7 L (3.5-5.0) g/dL Microbiology - Last 24 Hours (Table) 09/27/23 09:30 Gram Stain - Final Pleural Fluid Body Fluid Culture - Final - Imaging and Cardiology CT scan - chest: report reviewed Assessment and Plan (1) Multiple myeloma Current Visit: No Status: Chronic Priority: Medium Code(s): C90.00 - MULTIPLE MYELOMA NOT HAVING ACHIEVED REMISSION SNOMED Code(s): 322047145 (2) Pleural effusion Current Visit: Yes Status: Acute Priority: High Code(s): J90 - PLEURAL EFFUSION, NOT ELSEWHERE CLASSIFIED SNOMED Code(s): 92344474 (3) Weakness Current Visit: Yes Status: Acute Priority: High Code(s): R53.1 - WEAKNESS SNOMED Code(s): 10251991 Plan: Multiple myeloma -Well controlled disease for several years -Patient is currently on 2.5 mg of Revlimid on Tuesdays and Fridays. Cont to hold Revlimid. Will be reassessed by Primary Onc prior to resuming -Patient CBC from the office on 09/08 was reviewed. Counts overall stable especially in the setting acute illness. CBC tomorrow. -Myeloma labs were also drawn in the office on the . They were stable at that time. No additional multiple myeloma labs at this time Pleural effusion -Right pleural effusion status postthoracentesis. Cytology neg for malignancy, reviewed with pt and -Patient had additional imaging to assess for pleural fluid recurrence, small amt of fluid, no plans for additional thoracentesis. -Patient dry, hacking cough with deep inspiration may be a little better. No shortness of breath. -Pulmonary continues to follow Weakness -Suspect in part related to metabolic encephalopathy as patient has not had dialysis for 4 days now -Patient doing much better compared to admission. - reports discussion of doing PT/OT at home. This is very reasonable. Chronic kidney disease on dialysis -Nephrology has seen pt -dialysis started -Patient has had significant improvement in his mental status, fluid status and in general physical status since having hemodialysis. Cont per Nephrology Doctor attests: I performed a history and physical examination of this patient, developed impression and plan of care. Discussed with dictator. I agree with dictators note, documented as a scribe.
[2023-10-01] MEDS: guaiFENesin-Coden 100-10MG/5ML 10 ML CUP PO PRN (21:19)
[2023-10-02] MEDS: MIDODRINE 5 MG TAB PO PRN (10:26)
[2023-10-02] MEDS: SODIUM CHLORIDE 0.9% 500 ML 250 ML IV ONE (10:27)
--- NOTE | 2023-10-02 11:00 | P.PN ---
Subjective Patient is seen in follow-up for end-stage renal disease. He is maintained on hemodialysis on Saturday schedule. Resting in bed. Tolerated 2 L ultrafiltration yesterday. Blood pressure low this morning. No active complaints. present at bedside. Vital signs are stable. Blood pressure low. General: No acute distress. HEENT: Head exam is unremarkable. LUNGS: No audible rhonchi or wheezes. HEART: Rate and Rhythm are regular. ABDOMEN: Nontender. EXTREMITITES: No edema. Objective - Vital Signs Vital signs: Vital Signs Temp 97.4 F L 10/02/23 04:00 Pulse 95 10/02/23 08:56 Resp 16 10/02/23 08:00 BP 72/42 10/02/23 08:00 Pulse Ox 95 10/02/23 08:00 FiO2 Intake & Output 10/01/23 10/02/23 10/02/23 18:59 06:59 18:59 Intake Total 520 0 118 Output Total 2400 Balance -1880 0 118 Weight 67.5 kg Intake: Oral 120 0 118 Hemodialysis 400 Output: Hemodialysis 2400 Other: Voiding Method Urinal Urinal # Voids 1 0 - Labs CBC & Chem 7: 09/30/23 09:42 09/30/23 09:42 Labs: Abnormal Lab Results - Last 24 Hours (Table) 10/01/23 Range/Units 09:42 Iron 64 L (65-175) UG/DL TIBC 185 L (228-460) UG/DL Transferrin 132.0 L (204.0-354.0) mg/dL Ferritin 1657.0 H (22.0-322.0) ng/mL Microbiology - Last 24 Hours (Table) 09/27/23 09:30 Gram Stain - Final Pleural Fluid Body Fluid Culture - Final Assessment and Plan Plan: Assessment: 1. End-stage renal disease maintained on hemodialysis on Saturday schedule via left chest permacath. 2. Pleural effusion status post right-sided thoracentesis with 1.[address] chest from September 30, 2023 showed small to moderate right pleural effusion. 3. Hypertension with chronic kidney disease. Blood pressure low this morning. 4. Chronic kidney disease mineral bone disease. On Tums. 5. Coronary artery disease with recent cardiac stent placement. 6. Hyponatremia secondary to chronic kidney disease. Thiazide diuretic discontinued. 7. Anemia of chronic kidney disease. Iron replete. Plan: Hemodialysis tomorrow. 250 cc normal saline bolus now. Midodrine 10 mg once now. Maintain 1500 cc fluid restriction. Stop amlodipine. Hold lisinopril for systolic blood pressure less than 120. Add Aranesp.
--- NOTE | 2023-10-02 11:55 | P.PN ---
Subjective Progress Note Date: 10/02/23 Dean Earl, is a77 year old male who presented to [facility] emergency room with a chief complaint of generalized weakness and fall He was evaluated in the emergency room vital examination on presentation revealed a temperature of 97.3 pulse 67 respiration 22 blood pressure 141/74 pu lse ox 95% on room air Laboratory data reveals a white blood count of 4.5 hemoglobin 10.7 platelet c ount 101 BUN 77 creatinine 7.38 troponin level 0.066 Testing in the emergency room revealed computed tomography scan of the brain revealed chronic small vessel ischemic changes without acute intracranial process, chest x-ray done in the emergency room revealed [id number] right pleural effusion, EKG revealed sinus rhythm with first-degree AV block and left axis deviation Patient was admitted to medical floor for further evaluation and treatment Past medical history is significant for end-stage renal disease on hemodialysis, hypertension, hyperlipidemia, coronary artery disease with history of angioplasty and stent placement, On 09/25/2023 patient is resting comfortably in bed at bedside. Possible thoracentesis today per pulmonary. Neurology services have been consulted for o ngoing confusion. Patient also to get hemodialysis today per nephrology services. Current vital signs temp 98.2, heart 77, respiratory rate 20, blood pressure 143/80 with pulse ox 96% on room air on 09/26/2023 patient was seen and examined on the medical floor he is alert slightly confused in no apparent distress, there is no fever or chills no headache or dizziness no chest pain no shortness of breath no cough no nausea or vomiting no abdominal pain no diarrhea and no urinary symptoms. Vital exam reveals a temperature of 97.8 pulse 87 respiration 16 and blood pressure 153/85 pulse ox 95% on room air on 09/27/2023 patient was seen and examined on the medical floor he is alert and oriented 3 in no apparent distress he is complaining of cough and difficulty taking it breath otherwise he denies any complaints there is no fever or chills no headache or dizziness, no chest pain no nausea or vomiting no abdominal pain no diarrhea and no urinary symptoms. He underwent right sided thoracentesis earlier today with 1.5 L of fluid removed, patient is receiving hemodialysis, pulmonary and nephrologyand hematology are following on 09/28/2023 patient was seen and examined on the medical floor he is alert and oriented 3 in no apparent distress he is complaining of cough and difficulty taking it breath otherwise he denies any complaints there is no fever or chills no headache or dizziness, no chest pain no nausea or vomiting no abdominal pain no diarrhea and no urinary symptoms. patient is scheduled for hemodialysis today, he is also scheduled for brain MRI, will continue to follow closely. on 09/28/2022 for patient's alert and oriented 3. Patient underwent MRI of the brain showing no evidence of intracranial mass or acute subacute infarct nonspecific white matter changes likely secondary to small vessel ischemic disease.current vital signs temp 97.6, heart rate 76, respiratory rate 16, blood pressure 126/69 with pulse ox 96% on room air.neurology, nephrology and pulmon sera services are following on 09/30/2023 patient was seen and examined on the medical floor he is alert and oriented 3 in no apparent distress there is no fever or chills no headache or dizziness, shortness of breath has improved, there is no chest pain he has occasional cough no nausea or vomiting no abdominal pain no diarrhea and no urinary symptoms, at this time we are still awaiting pleural fluid cytology, pulmonary recommending computed tomography scan of the chest without contrast, MRI of the brain and neurology input reviewed, will continue to follow closely. on 10/01/2023 patient was seen and examined on the medical floor he is alert and oriented 3 in no apparent distress, he is complaining of cough and generalized weakness otherwise he denies any complaints, there is no fever or chills no headache or dizziness no chest pain no shortness of breath, no nausea or vomiting no abdominal pain no diarrhea and no urinary symptoms, he received hemodialysis today, cytology from the thoracentesis fluid was negative for malignancy, per pulmonary no need to repeat thoracentesis, will continue to monitor possible discharge in the next 1-2 days On 10/02/2023 patient is alert and oriented 3. Patient having episodes of low blood pressure parameter set to lisinopril and Lopressor. We'll continue to monitor at this time patient denies chest pain or shortness of breath. Patient denies nausea vomiting or diarrhea. Patient denies any urinary burning or frequency Objective - Vital Signs Vital signs: Vital Signs Temp 97.4 F L 10/02/23 04:00 Pulse 95 10/02/23 08:56 Resp 16 10/02/23 08:00 BP 72/42 10/02/23 08:00 Pulse Ox 95 10/02/23 08:00 FiO2 Intake & Output 10/01/23 10/02/23 10/02/23 18:59 06:59 18:59 Intake Total 520 0 118 Output Total 2400 Balance -1880 0 118 Weight 67.5 kg Intake: Oral 120 0 118 Hemodialysis 400 Output: Hemodialysis 2400 Other: Voiding Method Urinal Urinal # Voids 1 0 - Exam In general patient is alert and oriented x 3 in no distress HEENT head normocephalic and atraumatic Neck is supple no JVD no goiter no lymphadenopathy no carotid bruit Chest examination is clear to auscultation no crackles no wheezing Cardiac exam reveals regular heart sounds S1 and S2 no gallops no murmurs Abdomen is soft nontender no organomegaly with normal bowel sounds Extremity exam reveals no edema no cyanosis or clubbing Neurological examination reveals no gross focal deficits - Labs CBC & Chem 7: 09/30/23 09:42 09/30/23 09:42 Labs: Abnormal Lab Results - Last 24 Hours (Table) 10/01/23 Range/Units 09:42 Iron 64 L (65-175) UG/DL TIBC 185 L (228-460) UG/DL Transferrin 132.0 L (204.0-354.0) mg/dL Ferritin 1657.0 H (22.0-322.0) ng/mL Microbiology - Last 24 Hours (Table) 09/27/23 09:30 Gram Stain - Final Pleural Fluid Body Fluid Culture - Final Assessment and Plan Plan: generalized weakness Fall with bilateral knee injury right pleural effusion Elevated troponin level Underlying history of hypertension Underlying history of hyperlipidemia Underlying history of coronary artery disease with history of stent placement Underlying history of end-stage renal disease on hemodialysis History of multiple myeloma at this time patient will be admitted to medical floor home medications reviewed and reordered pulmonary, cardiology and nephrology services are following Status post thoracentesis Will follow closely
--- NOTE | 2023-10-02 12:11 | P.PN ---
Subjective Progress Note Date: 10/02/23 Principal diagnosis: Weakness, pleural effusion. Multiple myeloma In follow-up today patient feels good. He had an episode of dizziness and feeling like he was going to pass out, BP meds held, he received midodrine and 500cc, reports feeling much better. No fevers documented or pain reported. He has been out of bed Objective - Vital Signs Vital signs: Vital Signs Temp 97.4 F L 10/02/23 04:00 Pulse 95 10/02/23 08:56 Resp 16 10/02/23 08:00 BP 72/42 10/02/23 08:00 Pulse Ox 95 10/02/23 08:00 FiO2 Intake & Output 10/01/23 10/02/23 10/02/23 18:59 06:59 18:59 Intake Total 520 0 118 Output Total 2400 Balance -1880 0 118 Weight 67.5 kg Intake: Oral 120 0 118 Hemodialysis 400 Output: Hemodialysis 2400 Other: Voiding Method Urinal Urinal # Voids 1 0 - Constitutional General appearance: Present: average body habitus, cooperative, no acute distress - EENT Eyes: Present: anicteric sclerae, EOMI ENT: Present: hearing grossly normal - Respiratory Details: resp even and unlabored at rest. Harsh, dry cough - Peripheral edema leg Peripheral Edema: bilateral: Trace - Integumentary Integumentary: Present: normal - Neurologic Neurologic: Present: CNII-XII intact - Musculoskeletal Musculoskeletal: Present: generalized weakness, strength equal bilaterally - Psychiatric Psychiatric: Present: A&O x's 3, appropriate affect, intact judgment & insight - Labs CBC & Chem 7: 09/30/23 09:42 09/30/23 09:42 Labs: Abnormal Lab Results - Last 24 Hours (Table) 10/01/23 Range/Units 09:42 Iron 64 L (65-175) UG/DL TIBC 185 L (228-460) UG/DL Transferrin 132.0 L (204.0-354.0) mg/dL Ferritin 1657.0 H (22.0-322.0) ng/mL Microbiology - Last 24 Hours (Table) 09/27/23 09:30 Gram Stain - Final Pleural Fluid Body Fluid Culture - Final Assessment and Plan (1) Multiple myeloma Current Visit: No Status: Chronic Priority: Medium Code(s): C90.00 - MULTIPLE MYELOMA NOT HAVING ACHIEVED REMISSION SNOMED Code(s): 364524103 (2) Pleural effusion Current Visit: Yes Status: Acute Priority: High Code(s): J90 - PLEURAL EFFUSION, NOT ELSEWHERE CLASSIFIED SNOMED Code(s): 54468233 (3) Weakness Current Visit: Yes Status: Acute Priority: High Code(s): R53.1 - WEAKNESS SNOMED Code(s): 61339630 Plan: Multiple myeloma -Well controlled disease for several years -Patient is currently on 2.5 mg of Revlimid on Tuesdays and Fridays. Cont to hold Revlimid. Will be reassessed by Primary Onc prior to resuming -Patient CBC from the office on 09/08 was reviewed. Counts overall stable especially in the setting acute illness. -Myeloma labs were also drawn in the office on the . They were stable at that time. No additional multiple myeloma labs at this time Pleural effusion -Right pleural effusion status postthoracentesis. Cytology neg for malignancy -No evidence of recurrence so far. Resp status stable. -Patient dry, hacking cough, has been started on cough syrup, better. -Pulmonary continues to follow Weakness -Suspect in part related to metabolic encephalopathy as patient has not had dialysis for 4 days now -Patient doing much better compared to admission. - reports discussion of doing PT/OT at home. This is very reasonable. Chronic kidney disease on dialysis -Nephrology has seen pt -dialysis started -Patient has had significant improvement in his mental status, fluid status and in general physical status since having hemodialysis. Cont per Nephrology Pt ok from Hem/Onc standpoint for discharge once he has been cleared by Attending and consulting Physicians
[2023-10-02] MEDS: DARBEPOETIN ALFA 40 MCG/0.4 ML SYRINGE SQ SCH (12:58)
--- NOTE | 2023-10-02 14:51 | P.PN ---
Subjective Progress Note Date: 10/02/23 Is a 77-year-old white male with past medical history significant for multiple myeloma, end-stage renal disease maintained on hemodialysis (on a Saturday, , Saturday schedule), previously maintained on peritoneal dialysis, hyperlipidemia, hypertension, coronary artery disease with recent stenting, BPH, GERD, among other things. Patient presented to emergency room yesterday morning with a chief complaint of multiple days of generalized weakness and it is progressively worse. Yesterday, the patient attempted to stand up and fell onto his knees. Denies head trauma. No focal deficits. Brain CT on arrival does not show any intracranial hemorrhage or mass effect. Due to his weakness, he di d miss his hemodialysis treatment yesterday. Patient is currently in the emergency department, room 4. He is on room air. SpO2 96%. He does endorse some exertional shortness of breath. Denies chest pain. Denies worsening lower extremity swelling. He denies any fevers. He does have an occasional intermittent mild nonproductive cough. No significant sputum production. Denies any nausea, vomiting, diarrhea, abdominal pain. He does have a abdominal peritoneal dialysis catheter. Also has a left subclavian hemodialysis catheter. Chest x-ray done on admission demonstrated a moderate size right pleural effusion. For this reason we are consulted. Of note, patient recently had a heart catheterization done 09/03/2023, he received a stent to the OM1. Denies missing any doses of Plavix or aspirin. He does have multiple myeloma, maintained on Revlimid. His oncologist is reportedly Dr. Whitt. CBC: WBC count 4.5, hemoglobin 10.7, hematocrit 32.3, platelets 101. BMP: Sodium 131, potassium 4.3, chloride 97, serum bicarb 23, BUN 77, creatinine 7.38, glucose 96. Lactic acid level 0.9. LFTs not elevated. Ammonia less than 9. Troponins mildly elevated but flat, 0.066, 0.054, and 0.056 respectively. Negative for influenza, RSV, COVID. Patient denies prior history of pleural effusions or thoracentesis. Afebrile. Hemodynamically stable. Progress note dated September 26, 2023. The patient is seen in room 352. The patient is not receiving any IV fluids. The patient is on room air. The plans for hemodialysis today is to remove 1.5 L of fluid. A chest x-ray was ordered for tomorrow. The patient has a right- sided pleural effusion. We are going to attempt a thoracentesis, but the patient will not be completed with hemodialysis till afternoon. No new labs today. Progress note dated September 27, 2023. The patient is seen today in room 352. The patient did have a right-sided thor acentesis earlier today, with 1.5 L of fluid being removed from the right pleural space. Patient tolerated procedure well. Currently, he is on room air. Is not receiving any IV fluid. No plans for hemodialysis today. Labs today include a sodium 133, potassium 4.3, chlorides 101, CO2 23, BUN 21, and creatinine 3.92. White Count 4.4, Hemoglobin 11.4, Hematocrit 34.2, Platelet Count 96,000. Chest x-ray shows improvement in the right-sided pleural effusion, without a postthoracentesis pneumothorax. Progress note dated September 28, 2023. The patient is seen today in room 352. His is in the room as is his daughter. Currently he is on room air. He is not receiving any IV fluids. He is scheduled for hemodialysis today, and apparently also has a scheduled MRI. Currently, his cough is improved. The fluid was sent for analysis, but is not yet back. No new labs noted. The pleural fluid appears to be an exudate, as the protein is more than 3 g. It is actually 3210 mg. The fluid LDH is 151. Progress note dated September 29, 2023. The patient is seen today in room 352. He is resting comfortably in bed. He is not on any fluids. He is not receiving any supplemental oxygen. His cough, is improved, but he still has a cough. His chest x-ray today continues to show a pleural effusion, on the right. It may be reaccumulating. No new labs today. Clinically, the patient appears much more stable. On 09/30/2023, the patient is being seen for a follow-up. The patient is doing well and the shortness of breath improved following the thoracentesis. The fluid cytology is still pending for now. The follow-up chest x-ray postthoracentesis showed improvement in the volume status and the patient continues to have some small amount of right-sided pleural effusion. Nevertheless, he continues to have persistent cough which is dry which is been ongoing for the past 4 months. The patient has a white cell count of 4 with a hemoglobin 9.8 and a platelet count of 19. Noted the patient has history of multiple myeloma.. Sodium levels at 124 with a potassium level of 3.7, BUN is 39 with a creatinine of 5.8 and a serum bicarb is currently at 25. Thoracentesis was done on 09/27/2023. The patient has end-stage renal disease on hemodialysis 3 times a week. The patient is also known to have CAD, hypertension hyperlipidemia and chronic multiple myeloma. On 10/01/2023, the patient is being seen for a follow-up. Doing well. No specific complaints. Still having some dry cough. CAT scan of the chest was done yesterday and the patient was found to have a small residual right-sided pleural effusion. Pleural fluid cytology from her previous pleurocentesis showed no evidence of any malignancy. The patient continues to undergo hemodialysis. Blood work from today shows a white cell count of 4 with a hemoglobin 9.8, sodium is at 124, BUN 39 with a creatinine of 5.8. The patient denies having any significant shortness of breath and the patient remains on room air oxygen. The patient is also on Lasix 80 mg p.o. twice a day. Urine output remains quite diminished at this point in time. No fever. No chills. No other complaints otherwise. On 10/02/2023, the patient is being seen for a follow-up. The patient remains on room air oxygen. He underwent hemodialysis yesterday. Earlier this morning, the patient was noted to be running a lower blood pressure. Systolic blood pressure was in the mid 80s. The patient accordingly was given a total of 250 cc of normal saline bolus and the patient was started on midodrine given 10 mg this morning. Lisinopril was placed on hold and amlodipine was also placed on hold by nephrology. No respiratory distress. Cough is gradually improving. White cell count at 4 with a hemoglobin 9.8 and the BUN is at 39 with a crea tinine of 5.8 on those labs from yesterday. Serum iron is low at 64. Ferritin level is elevated. The rest of the medication remains essentially unchanged. Objective - Vital Signs Vital signs: Vital Signs Temp 97.4 F L 10/02/23 04:00 Pulse 95 10/02/23 08:56 Resp 16 10/02/23 08:00 BP 72/42 10/02/23 08:00 Pulse Ox 95 10/02/23 08:00 FiO2 Intake & Output 10/01/23 10/02/23 10/02/23 18:59 06:59 18:59 Intake Total 520 0 118 Output Total 2400 Balance -1880 0 118 Weight 67.5 kg Intake: Oral 120 0 118 Hemodialysis 400 Output: Hemodialysis 2400 Other: Voiding Method Urinal Urinal # Voids 1 0 - Exam No acute distress, oriented 3. Currently on room air. HEENT examination is grossly unremarkable. Mucous membranes are moist. No oral lesions. Neck supple. Full range of motion. No adenopathy thyromegaly or neck vein distention. Cardiovascular examination reveals regular rhythm rate. S1-S2 normal. No S3 or S4. No discernible murmur noted. Heart sounds distant. Lungs reveal improved breath sounds at the right lung base. Minimal dullness on percussion. Left lung is clear. No crackles. No wheezes. Abdomen soft bowel sounds are heard. No masses or tenderness. Extremities are intact. No cyanosis clubbing or edema. Skin is without rash or lesion. Neurologic examination is brief but nonfocal. - Labs CBC & Chem 7: 09/30/23 09:42 09/30/23 09:42 Labs: Abnormal Lab Results - Last 24 Hours (Table) 10/01/23 Range/Units 09:42 Iron 64 L (65-175) UG/DL TIBC 185 L (228-460) UG/DL Transferrin 132.0 L (204.0-354.0) mg/dL Ferritin 1657.0 H (22.0-322.0) ng/mL Microbiology - Last 24 Hours (Table) 09/27/23 09:30 Gram Stain - Final Pleural Fluid Body Fluid Culture - Final Assessment and Plan Plan: Shortness of breath, improved following a right-sided thoracentesis was done on 09/27/2023. A total of 1.5 L of fluid was aspirated. Fluid cytology still pending for now. The fluid is an exudate based on the protein criteria, and the pleural fluid cytology was negative for malignancy. Follow-up CAT scan of the chest showed a small residual right-sided pleural effusion. Right-sided pleural effusion postthoracentesis, exudative, pleural fluid cytology is negative. Rule out parapneumonic effusion Chronic persistent cough, CAT scan of the chest was noted End-stage renal disease, previously maintained on peritoneal dialysis, transitioned to hemodialysis, on a Saturday, , Saturday schedule. Hypotension, given a bolus of normal saline and the patient is antihypertensive medications are currently on hold Elevated troponins, rule out an non-ST elevation [place]. Coronary artery disease with recent history of PCI/stenting of the OM1 on 09/03/2023. History of hyperlipidemia. History of hypertension. History of multiple myeloma. Anemia of chronic disease. Chronic thrombocytopenia. History of BPH. History of GERD without esophagitis. Plan: CAT scan of the chest was reviewed. Small residual right-sided pleural effusion. Otherwise no other acute abnormalities. Patient is currently on room air oxygen Encourage use of incentive spirometer [facility] and [facility] Hemodialysis ultrafiltration was done yesterday and the patient is currently slightly hypotensive Patient was given 250 cc of normal saline bolus in the amlodipine and lisinopril placed on hold. Continue midodrine Nephrology on the case Will continue to follow.
[2023-10-03] MEDS: SODIUM CHLORIDE 0.9% 500 ML 500 ML IV ONE (09:30)
--- NOTE | 2023-10-03 12:10 | P.PN ---
Subjective Patient is seen in follow-up for end-stage renal disease. He is maintained on hemodialysis on Saturday schedule. Resting in bed. Blood pressure again low this morning and received fluid bolus and midodrine. Repeat blood pressure 90/53. Vital signs are stable. General: No acute distress. HEENT: Head exam is unremarkable. LUNGS: No audible rhonchi or wheezes. HEART: Rate and Rhythm are regular. ABDOMEN: Nontender. EXTREMITITES: No edema. Objective - Vital Signs Vital signs: Vital Signs Temp 98.1 F 10/03/23 08:00 Pulse 86 10/03/23 11:23 Resp 18 10/03/23 10:00 BP 90/53 10/03/23 10:00 Pulse Ox 95 10/03/23 10:00 FiO2 Intake & Output 10/02/23 10/03/23 10/03/23 18:59 06:59 18:59 Intake Total 236 150 Output Total 500 Balance -264 150 Weight 71.5 kg Intake: Oral 236 150 Output: Emesis 500 Other: Voiding Method Urinal Urinal Urinal # Voids 1 - Labs CBC & Chem 7: 09/30/23 09:42 09/30/23 09:42 Assessment and Plan Plan: Assessment: 1. End-stage renal disease maintained on hemodialysis on Saturday schedule via left chest permacath. 2. Pleural effusion status post right-sided thoracentesis with 1.[address] chest from September 30, 2023 showed small to moderate right pleural effusion. 3. Hypertension with chronic kidney disease. Blood pressure again low this morning. Improved with fluid bolus and midodrine. 4. Chronic kidney disease mineral bone disease. On Tums. 5. Coronary artery disease with recent cardiac stent placement. 6. Hyponatremia secondary to chronic kidney disease. Thiazide diuretic discontinued. 7. Anemia of chronic kidney disease. Iron replete. On Aranesp. Plan: Hemodialysis today. No ultrafiltration today. Add scheduled midodrine 10 mg 3 times daily. Hold for systolic blood pressure greater than 110. Okay to give additional dose of midodrine during dialysis if systolic blood pressure below 100. Stop lisinopril. Stop Lasix.
[2023-10-03] MEDS: MIDODRINE 5 MG TAB PO SCH (12:39)
--- NOTE | 2023-10-03 13:56 | P.PN ---
Subjective Progress Note Date: 10/03/23 Principal diagnosis: Weakness, pleural effusion. Multiple myeloma In follow-up pt reporting emesis yesterday after dinner, sudden, no nausea, his abd feel distended and firm, denies pain. No other c/o on a focused ROS. He is still having significant hypotension, especially in AM, being treated with holding of BP meds, midodrine and small amt of fluid resuscitation. No reported swelling. Objective - Vital Signs Vital signs: Vital Signs Temp 98.1 F 10/03/23 08:00 Pulse 92 10/03/23 12:00 Resp 18 10/03/23 12:00 BP 119/65 10/03/23 12:00 Pulse Ox 92 L 10/03/23 12:00 FiO2 Intake & Output 10/02/23 10/03/23 10/03/23 18:59 06:59 18:59 Intake Total 236 150 Output Total 500 Balance -264 150 Weight 71.5 kg Intake: Oral 236 150 Output: Emesis 500 Other: Voiding Method Urinal Urinal Urinal # Voids 1 - Constitutional General appearance: Present: average body habitus, cooperative, no acute distress - EENT Eyes: Present: anicteric sclerae, EOMI ENT: Present: hearing grossly normal - Respiratory Details: resp even and unlabored - Cardiovascular Details: skin warm and dry, no diaphoresis - Peripheral edema leg Peripheral Edema: bilateral: Trace - Gastrointestinal Gastrointestinal Comment(s): epigastric area is firm, no pain with palpation General gastrointestinal: Present: distended - Integumentary Integumentary: Present: normal - Neurologic Neurologic: Present: CNII-XII intact - Musculoskeletal Musculoskeletal: Present: strength equal bilaterally - Psychiatric Psychiatric: Present: A&O x's 3, appropriate affect, intact judgment & insight - Labs CBC & Chem 7: 09/30/23 09:42 09/30/23 09:42 Assessment and Plan (1) Multiple myeloma Current Visit: No Status: Chronic Priority: Medium Code(s): C90.00 - MULTIPLE MYELOMA NOT HAVING ACHIEVED REMISSION SNOMED Code(s): 252969473 (2) Pleural effusion Current Visit: Yes Status: Acute Priority: High Code(s): J90 - PLEURAL EFFUSION, NOT ELSEWHERE CLASSIFIED SNOMED Code(s): 32379378 (3) Weakness Current Visit: Yes Status: Acute Priority: High Code(s): R53.1 - WEAKNESS SNOMED Code(s): 55872530 Plan: Multiple myeloma -Well controlled disease for several years -Patient is currently on 2.5 mg of Revlimid on Tuesdays and Fridays. Cont to hold Revlimid. Will be reassessed by Primary Onc prior to resuming. Appt is in DC plan. understands plan -Counts overall stable, especially in the setting acute illness. -Myeloma labs were also drawn in the office on the . They were stable at that time. No additional multiple myeloma labs at this time Pleural effusion -Right pleural effusion status postthoracentesis. Cytology neg for malignancy -No evidence of recurrence so far. Resp status stable. -Patient dry, hacking cough, has been started on cough syrup, better. -Pulmonary continues to follow Weakness -Suspect in part related to metabolic encephalopathy -Patient doing much better after hemodialkysis. - reports discussion of doing PT/OT at home. This is very reasonable. Chronic kidney disease on dialysis -Nephrology has seen pt -dialysis started -Patient has had significant improvement in his mental status, fluid status and in general physical status since having hemodialysis. Cont per Nephrology Pt had an episode of vomiting without nausea yesterday, abd feels bloated and firm. Abd X ray ordered has concerns for othostatic hypotension. Orthostatic BP ordered Pt ok from Hem/Onc standpoint for discharge once he has been cleared by Attending and consulting Physicians
--- NOTE | 2023-10-03 13:58 | P.PN ---
Subjective Progress Note Date: 10/03/23 Is a 77-year-old white male with past medical history significant for multiple myeloma, end-stage renal disease maintained on hemodialysis (on a Saturday, , Saturday schedule), previously maintained on peritoneal dialysis, hyperlipidemia, hypertension, coronary artery disease with recent stenting, BPH, GERD, among other things. Patient presented to emergency room yesterday morning with a chief complaint of multiple days of generalized weakness and it is progressively worse. Yesterday, the patient attempted to stand up and fell onto his knees. Denies head trauma. No focal deficits. Brain CT on arrival does not show any intracranial hemorrhage or mass effect. Due to his weakness, he di d miss his hemodialysis treatment yesterday. Patient is currently in the emergency department, room 4. He is on room air. SpO2 96%. He does endorse some exertional shortness of breath. Denies chest pain. Denies worsening lower extremity swelling. He denies any fevers. He does have an occasional intermittent mild nonproductive cough. No significant sputum production. Denies any nausea, vomiting, diarrhea, abdominal pain. He does have a abdominal peritoneal dialysis catheter. Also has a left subclavian hemodialysis catheter. Chest x-ray done on admission demonstrated a moderate size right pleural effusion. For this reason we are consulted. Of note, patient recently had a heart catheterization done 09/03/2023, he received a stent to the OM1. Denies missing any doses of Plavix or aspirin. He does have multiple myeloma, maintained on Revlimid. His oncologist is reportedly Dr. Whitt. CBC: WBC count 4.5, hemoglobin 10.7, hematocrit 32.3, platelets 101. BMP: Sodium 131, potassium 4.3, chloride 97, serum bicarb 23, BUN 77, creatinine 7.38, glucose 96. Lactic acid level 0.9. LFTs not elevated. Ammonia less than 9. Troponins mildly elevated but flat, 0.066, 0.054, and 0.056 respectively. Negative for influenza, RSV, COVID. Patient denies prior history of pleural effusions or thoracentesis. Afebrile. Hemodynamically stable. Progress note dated September 26, 2023. The patient is seen in room 352. The patient is not receiving any IV fluids. The patient is on room air. The plans for hemodialysis today is to remove 1.5 L of fluid. A chest x-ray was ordered for tomorrow. The patient has a right- sided pleural effusion. We are going to attempt a thoracentesis, but the patient will not be completed with hemodialysis till afternoon. No new labs today. Progress note dated September 27, 2023. The patient is seen today in room 352. The patient did have a right-sided thor acentesis earlier today, with 1.5 L of fluid being removed from the right pleural space. Patient tolerated procedure well. Currently, he is on room air. Is not receiving any IV fluid. No plans for hemodialysis today. Labs today include a sodium 133, potassium 4.3, chlorides 101, CO2 23, BUN 21, and creatinine 3.92. White Count 4.4, Hemoglobin 11.4, Hematocrit 34.2, Platelet Count 96,000. Chest x-ray shows improvement in the right-sided pleural effusion, without a postthoracentesis pneumothorax. Progress note dated September 28, 2023. The patient is seen today in room 352. His is in the room as is his daughter. Currently he is on room air. He is not receiving any IV fluids. He is scheduled for hemodialysis today, and apparently also has a scheduled MRI. Currently, his cough is improved. The fluid was sent for analysis, but is not yet back. No new labs noted. The pleural fluid appears to be an exudate, as the protein is more than 3 g. It is actually 3210 mg. The fluid LDH is 151. Progress note dated September 29, 2023. The patient is seen today in room 352. He is resting comfortably in bed. He is not on any fluids. He is not receiving any supplemental oxygen. His cough, is improved, but he still has a cough. His chest x-ray today continues to show a pleural effusion, on the right. It may be reaccumulating. No new labs today. Clinically, the patient appears much more stable. On 09/30/2023, the patient is being seen for a follow-up. The patient is doing well and the shortness of breath improved following the thoracentesis. The fluid cytology is still pending for now. The follow-up chest x-ray postthoracentesis showed improvement in the volume status and the patient continues to have some small amount of right-sided pleural effusion. Nevertheless, he continues to have persistent cough which is dry which is been ongoing for the past 4 months. The patient has a white cell count of 4 with a hemoglobin 9.8 and a platelet count of 19. Noted the patient has history of multiple myeloma.. Sodium levels at 124 with a potassium level of 3.7, BUN is 39 with a creatinine of 5.8 and a serum bicarb is currently at 25. Thoracentesis was done on 09/27/2023. The patient has end-stage renal disease on hemodialysis 3 times a week. The patient is also known to have CAD, hypertension hyperlipidemia and chronic multiple myeloma. On 10/01/2023, the patient is being seen for a follow-up. Doing well. No specific complaints. Still having some dry cough. CAT scan of the chest was done yesterday and the patient was found to have a small residual right-sided pleural effusion. Pleural fluid cytology from her previous pleurocentesis showed no evidence of any malignancy. The patient continues to undergo hemodialysis. Blood work from today shows a white cell count of 4 with a hemoglobin 9.8, sodium is at 124, BUN 39 with a creatinine of 5.8. The patient denies having any significant shortness of breath and the patient remains on room air oxygen. The patient is also on Lasix 80 mg p.o. twice a day. Urine output remains quite diminished at this point in time. No fever. No chills. No other complaints otherwise. On 10/02/2023, the patient is being seen for a follow-up. The patient remains on room air oxygen. He underwent hemodialysis yesterday. Earlier this morning, the patient was noted to be running a lower blood pressure. Systolic blood pressure was in the mid 80s. The patient accordingly was given a total of 250 cc of normal saline bolus and the patient was started on midodrine given 10 mg this morning. Lisinopril was placed on hold and amlodipine was also placed on hold by nephrology. No respiratory distress. Cough is gradually improving. White cell count at 4 with a hemoglobin 9.8 and the BUN is at 39 with a crea tinine of 5.8 on those labs from yesterday. Serum iron is low at 64. Ferritin level is elevated. The rest of the medication remains essentially unchanged. 10/03/2023, the patient is still having some issues with hypotension. The patient was given another bolus of half a liter and the subsequent blood pressures of 219/65. Earlier this morning, the BP was as low as 62/35. He was feeling slightly dizzy and this is improved with fluid and improvement in the blood pressure control. No respiratory distress. Nephrology on the case. Blood pressure medications have been adjusted. Nephrology is recommending hemodialysis without any ultrafiltration. Midodrine is added at a dose of 10 mg p.o. 3 times daily. Lisinopril has been discontinued. Lasix has been discontinued. The thiazide has also been discontinued as the patient had a component of hyponatremia. Objective - Vital Signs Vital signs: Vital Signs Temp 98.1 F 10/03/23 08:00 Pulse 92 10/03/23 12:00 Resp 18 10/03/23 12:00 BP 119/65 10/03/23 12:00 Pulse Ox 92 L 10/03/23 12:00 FiO2 Intake & Output 10/02/23 10/03/23 10/03/23 18:59 06:59 18:59 Intake Total 236 150 Output Total 500 Balance -264 150 Weight 71.5 kg Intake: Oral 236 150 Output: Emesis 500 Other: Voiding Method Urinal Urinal Urinal # Voids 1 - Exam No acute distress, oriented 3. Currently on room air. HEENT examination is grossly unremarkable. Mucous membranes are moist. No oral lesions. Neck supple. Full range of motion. No adenopathy thyromegaly or neck vein di stention. Cardiovascular examination reveals regular rhythm rate. S1-S2 normal. No S3 or S4. No discernible murmur noted. Heart sounds distant. Lungs reveal improved breath sounds at the right lung base. Minimal dullness on percussion. Left lung is clear. No crackles. No wheezes. Abdomen soft bowel sounds are heard. No masses or tenderness. Extremities are intact. No cyanosis clubbing or edema. Skin is without rash or lesion. Neurologic examination is brief but nonfocal. - Labs CBC & Chem 7: 09/30/23 09:42 09/30/23 09:42 Assessment and Plan Plan: Shortness of breath, improved following a right-sided thoracentesis was done on 09/27/2023. A total of 1.5 L of fluid was aspirated. Fluid cytology still pending for now. The fluid is an exudate based on the protein criteria, and the pleural fluid cytology was negative for malignancy. Follow-up CAT scan of the chest showed a small residual right-sided pleural effusion. Right-sided pleural effusion postthoracentesis, exudative, pleural fluid cytology is negative. Rule out parapneumonic effusion Chronic persistent cough, CAT scan of the chest was noted, clinically improving End-stage renal disease, previously maintained on peritoneal dialysis, transitioned to hemodialysis, on a Saturday, , Saturday schedule. Hypotension, given a bolus of normal saline and the patient is antihypertensive medications are currently on hold, the patient received fluid bolus again this morning and the patient has been taken off the hydrochlorothiazide and Lasix and lisinopril. Is to be continued without any ultrafiltration. Elevated troponins, rule out an non-ST elevation OH. Coronary artery disease with recent history of PCI/stenting of the OM1 on 09/03/2023. History of hyperlipidemia. History of hypertension. History of multiple myeloma. Anemia of chronic disease. Chronic thrombocytopenia. History of BPH. History of GERD without esophagitis. Plan: Close monitoring of blood pressure Hold antihypertensive medications Fluid bolus was given and the patient was responsive Midodrine was added Hemodialysis without ultrafiltration CAT scan of the chest was reviewed. Small residual right-sided pleural effusion. Otherwise no other acute abnormalities. Patient is currently on room air oxygen Encourage use of incentive spirometer Continue Compa [facility] Mucinex for cough and congestion Will continue to follow.
[2023-10-03] MEDS: MIDODRINE 5 MG TAB PO STA (14:52)
--- NOTE | 2023-10-03 17:25 | P.PN ---
Subjective Progress Note Date: 09/26/23 Dean Earl, is a77 year old male who presented to [facility] emergency room with a chief complaint of generalized weakness and fall He was evaluated in the emergency room vital examination on presentation revealed a temperature of 97.3 pulse 67 respiration 22 blood pressure 141/74 pu lse ox 95% on room air Laboratory data reveals a white blood count of 4.5 hemoglobin 10.7 platelet c ount 101 BUN 77 creatinine 7.38 troponin level 0.066 Testing in the emergency room revealed computed tomography scan of the brain revealed chronic small vessel ischemic changes without acute intracranial process, chest x-ray done in the emergency room revealed [id number] right pleural effusion, EKG revealed sinus rhythm with first-degree AV block and left axis deviation Patient was admitted to medical floor for further evaluation and treatment Past medical history is significant for end-stage renal disease on hemodialysis, hypertension, hyperlipidemia, coronary artery disease with history of angioplasty and stent placement, On 09/25/2023 patient is resting comfortably in bed at bedside. Possible thoracentesis today per pulmonary. Neurology services have been consulted for o ngoing confusion. Patient also to get hemodialysis today per nephrology services. Current vital signs temp 98.2, heart 77, respiratory rate 20, blood pressure 143/80 with pulse ox 96% on room air on 09/26/2023 patient was seen and examined on the medical floor he is alert slightly confused in no apparent distress, there is no fever or chills no headache or dizziness no chest pain no shortness of breath no cough no nausea or vomiting no abdominal pain no diarrhea and no urinary symptoms. Vital exam reveals a temperature of 97.8 pulse 87 respiration 16 and blood pressure 153/85 pulse ox 95% on room air on 09/27/2023 patient was seen and examined on the medical floor he is alert and oriented 3 in no apparent distress he is complaining of cough and difficulty taking it breath otherwise he denies any complaints there is no fever or chills no headache or dizziness, no chest pain no nausea or vomiting no abdominal pain no diarrhea and no urinary symptoms. He underwent right sided thoracentesis earlier today with 1.5 L of fluid removed, patient is receiving hemodialysis, pulmonary and nephrologyand hematology are following on 09/28/2023 patient was seen and examined on the medical floor he is alert and oriented 3 in no apparent distress he is complaining of cough and difficulty taking it breath otherwise he denies any complaints there is no fever or chills no headache or dizziness, no chest pain no nausea or vomiting no abdominal pain no diarrhea and no urinary symptoms. patient is scheduled for hemodialysis today, he is also scheduled for brain MRI, will continue to follow closely. on 09/28/2022 for patient's alert and oriented 3. Patient underwent MRI of the brain showing no evidence of intracranial mass or acute subacute infarct nonspecific white matter changes likely secondary to small vessel ischemic disease.current vital signs temp 97.6, heart rate 76, respiratory rate 16, blood pressure 126/69 with pulse ox 96% on room air.neurology, nephrology and pulmon sera services are following on 09/30/2023 patient was seen and examined on the medical floor he is alert and oriented 3 in no apparent distress there is no fever or chills no headache or dizziness, shortness of breath has improved, there is no chest pain he has occasional cough no nausea or vomiting no abdominal pain no diarrhea and no urinary symptoms, at this time we are still awaiting pleural fluid cytology, pulmonary recommending computed tomography scan of the chest without contrast, MRI of the brain and neurology input reviewed, will continue to follow closely. on 10/01/2023 patient was seen and examined on the medical floor he is alert and oriented 3 in no apparent distress, he is complaining of cough and generalized weakness otherwise he denies any complaints, there is no fever or chills no headache or dizziness no chest pain no shortness of breath, no nausea or vomiting no abdominal pain no diarrhea and no urinary symptoms, he received hemodialysis today, cytology from the thoracentesis fluid was negative for malignancy, per pulmonary no need to repeat thoracentesis, will continue to monitor possible discharge in the next 1-2 days On 10/02/2023 patient is alert and oriented 3. Patient having episodes of low blood pressure parameter set to lisinopril and Lopressor. We'll continue to monitor at this time patient denies chest pain or shortness of breath. Patient denies nausea vomiting or diarrhea. Patient denies any urinary burning or frequency on 10/03/2023 patient was seen and examined on the medical floor he is alert and oriented 3 in no apparent distress, this morning patient had an episode of vomiting. this morning he had significantly low blood pressure of 70/46 he received a normal saline fluid bolus, dose of midodrine was adjusted by nephrology, currently he is receiving hemodialysis, otherwise he denies any complaints there is no fever or chills no headache or dizziness no chest pain no shortness of breath no cough no abdominal pain no diarrhea and no urinary symptoms Objective - Vital Signs Vital signs: Vital Signs Temp 98.1 F 10/03/23 08:00 Pulse 92 10/03/23 14:00 Resp 18 10/03/23 14:00 BP 119/65 10/03/23 12:00 Pulse Ox 92 L 10/03/23 12:00 FiO2 Intake & Output 10/02/23 10/03/23 10/03/23 18:59 06:59 18:59 Intake Total 236 350 Output Total 500 Balance -264 350 Weight 71.5 kg Intake: Oral 236 350 Output: Emesis 500 Other: Voiding Method Urinal Urinal Urinal # Voids 1 - Exam In general patient is alert and oriented x 3 in no distress HEENT head normocephalic and atraumatic Neck is supple no JVD no goiter no lymphadenopathy no carotid bruit Chest examination is clear to auscultation no crackles no wheezing Cardiac exam reveals regular heart sounds S1 and S2 no gallops no murmurs Abdomen is soft nontender no organomegaly with normal bowel sounds Extremity exam reveals no edema no cyanosis or clubbing Neurological examination reveals no gross focal deficits - Labs CBC & Chem 7: 09/30/23 09:42 09/30/23 09:42 Assessment and Plan Plan: generalized weakness Fall with bilateral knee injury right pleural effusion Elevated troponin level Underlying history of hypertension Underlying history of hyperlipidemia Underlying history of coronary artery disease with history of stent placement Underlying history of end-stage renal disease on hemodialysis History of multiple myeloma at this time patient will be admitted to medical floor home medications reviewed and reordered pulmonary, cardiology and nephrology services are following Status post thoracentesis Will follow closely
--- NOTE | 2023-10-03 19:45 | XR ---
EXAMINATION TYPE: XR abdomen 2V DATE OF EXAM: 10/03/2023 7:37 PM CLINICAL INDICATION:Male, 77 years old with history of abd distension, vomiting without nausea; [facility] COMPARISON: None. TECHNIQUE: Two views of the abdomen were obtained. FINDINGS: The bowel gas pattern is nonspecific without dilated loops of small or large bowel. Promine nt air-filled loops of colon are present in the right upper quadrant. The osseous structures are int act. Pelvic phleboliths are present. Fecal material and gas are demonstrated throughout the colon a nd rectum. A suspected enteric tube is partially visualized above the level the gastroesophageal junction. IMPRESSION: 1. Prominent nondilated air-filled loops of colon in the right upper quadrant without evidence of obs truction. 2. Suspected enteric tube seen terminating above the level gastroesophageal junction, recommend advan cement of approximately 10 cm.
--- NOTE | 2023-10-04 10:24 | P.PN ---
Subjective Patient is seen in follow-up for end-stage renal disease. He is maintained on hemodialysis on Saturday schedule. Resting in bed. Blood pressure better. No problems with dialysis yesterday. Vital signs are stable. General: No acute distress. HEENT: Head exam is unremarkable. LUNGS: No audible rhonchi or wheezes. HEART: Rate and Rhythm are regular. ABDOMEN: Nontender. EXTREMITITES: No edema. Objective - Vital Signs Vital signs: Vital Signs Temp 97.6 F 10/04/23 08:00 Pulse 107 H 10/04/23 08:00 Resp 16 10/04/23 08:00 BP 100/55 10/04/23 08:00 Pulse Ox 96 10/04/23 08:00 FiO2 Intake & Output 10/03/23 10/04/23 10/04/23 18:59 06:59 18:59 Intake Total 930 0 Output Total 400 Balance 530 0 Intake: Oral 530 0 Hemodialysis 400 Output: Hemodialysis 400 Other: Voiding Method Urinal Urinal Urinal # Voids 1 - Labs CBC & Chem 7: 09/30/23 09:42 09/30/23 09:42 Assessment and Plan Plan: Assessment: 1. End-stage renal disease maintained on hemodialysis on Saturday schedule via left chest permacath. 2. Pleural effusion status post right-sided thoracentesis with 1.[address] chest from September 30, 2023 showed small to moderate right pleural effusion. 3. Hypertension with chronic kidney disease. Blood pressure on the lower side. Improved. 4. Chronic kidney disease mineral bone disease. On Tums. 5. Coronary artery disease with recent cardiac stent placement. 6. Hyponatremia secondary to chronic kidney disease. Thiazide diuretic discontinued. 7. Anemia of chronic kidney disease. Iron replete. On Aranesp. Plan: Hemodialysis tomorrow. Maintain midodrine. Hold for systolic blood pressure greater than 110. Okay to give additional dose of midodrine during dialysis if systolic blood pressure below 100. Antihypertensives discontinued.
[2023-10-04] MEDS ORDERED: DOCUSATE 100 MG CAP PO PRN (10:30)
--- NOTE | 2023-10-04 10:33 | P.PN ---
Subjective Progress Note Date: 10/04/23 Dean Earl, is a77 year old male who presented to [facility] emergency room with a chief complaint of generalized weakness and fall He was evaluated in the emergency room vital examination on presentation revealed a temperature of 97.3 pulse 67 respiration 22 blood pressure 141/74 pu lse ox 95% on room air Laboratory data reveals a white blood count of 4.5 hemoglobin 10.7 platelet c ount 101 BUN 77 creatinine 7.38 troponin level 0.066 Testing in the emergency room revealed computed tomography scan of the brain revealed chronic small vessel ischemic changes without acute intracranial process, chest x-ray done in the emergency room revealed [id number] right pleural effusion, EKG revealed sinus rhythm with first-degree AV block and left axis deviation Patient was admitted to medical floor for further evaluation and treatment Past medical history is significant for end-stage renal disease on hemodialysis, hypertension, hyperlipidemia, coronary artery disease with history of angioplasty and stent placement, On 09/25/2023 patient is resting comfortably in bed at bedside. Possible thoracentesis today per pulmonary. Neurology services have been consulted for o ngoing confusion. Patient also to get hemodialysis today per nephrology services. Current vital signs temp 98.2, heart 77, respiratory rate 20, blood pressure 143/80 with pulse ox 96% on room air on 09/26/2023 patient was seen and examined on the medical floor he is alert slightly confused in no apparent distress, there is no fever or chills no headache or dizziness no chest pain no shortness of breath no cough no nausea or vomiting no abdominal pain no diarrhea and no urinary symptoms. Vital exam reveals a temperature of 97.8 pulse 87 respiration 16 and blood pressure 153/85 pulse ox 95% on room air on 09/27/2023 patient was seen and examined on the medical floor he is alert and oriented 3 in no apparent distress he is complaining of cough and difficulty taking it breath otherwise he denies any complaints there is no fever or chills no headache or dizziness, no chest pain no nausea or vomiting no abdominal pain no diarrhea and no urinary symptoms. He underwent right sided thoracentesis earlier today with 1.5 L of fluid removed, patient is receiving hemodialysis, pulmonary and nephrologyand hematology are following on 09/28/2023 patient was seen and examined on the medical floor he is alert and oriented 3 in no apparent distress he is complaining of cough and difficulty taking it breath otherwise he denies any complaints there is no fever or chills no headache or dizziness, no chest pain no nausea or vomiting no abdominal pain no diarrhea and no urinary symptoms. patient is scheduled for hemodialysis today, he is also scheduled for brain MRI, will continue to follow closely. on 09/28/2022 for patient's alert and oriented 3. Patient underwent MRI of the brain showing no evidence of intracranial mass or acute subacute infarct nonspecific white matter changes likely secondary to small vessel ischemic disease.current vital signs temp 97.6, heart rate 76, respiratory rate 16, blood pressure 126/69 with pulse ox 96% on room air.neurology, nephrology and pulmon sera services are following on 09/30/2023 patient was seen and examined on the medical floor he is alert and oriented 3 in no apparent distress there is no fever or chills no headache or dizziness, shortness of breath has improved, there is no chest pain he has occasional cough no nausea or vomiting no abdominal pain no diarrhea and no urinary symptoms, at this time we are still awaiting pleural fluid cytology, pulmonary recommending computed tomography scan of the chest without contrast, MRI of the brain and neurology input reviewed, will continue to follow closely. on 10/01/2023 patient was seen and examined on the medical floor he is alert and oriented 3 in no apparent distress, he is complaining of cough and generalized weakness otherwise he denies any complaints, there is no fever or chills no headache or dizziness no chest pain no shortness of breath, no nausea or vomiting no abdominal pain no diarrhea and no urinary symptoms, he received hemodialysis today, cytology from the thoracentesis fluid was negative for malignancy, per pulmonary no need to repeat thoracentesis, will continue to monitor possible discharge in the next 1-2 days On 10/02/2023 patient is alert and oriented 3. Patient having episodes of low blood pressure parameter set to lisinopril and Lopressor. We'll continue to monitor at this time patient denies chest pain or shortness of breath. Patient denies nausea vomiting or diarrhea. Patient denies any urinary burning or frequency on 10/03/2023 patient was seen and examined on the medical floor he is alert and oriented 3 in no apparent distress, this morning patient had an episode of vomiting. this morning he had significantly low blood pressure of 70/46 he received a normal saline fluid bolus, dose of midodrine was adjusted by nephrology, currently he is receiving hemodialysis, otherwise he denies any complaints there is no fever or chills no headache or dizziness no chest pain no shortness of breath no cough no abdominal pain no diarrhea and no urinary symptoms On 10/04/2023 patient's alert and oriented 3. Patient's blood pressure is improved today complaining of constipation will order Colace.Current vital signs temp 97.6, heart rate 96, blood pressure 100/55 with a pulse ox of 96% on room air. Patient denies chest pain or shortness of breath. Patient denies any urinary burning or frequency Objective - Vital Signs Vital signs: Vital Signs Temp 97.6 F 10/04/23 08:00 Pulse 107 H 10/04/23 08:00 Resp 16 10/04/23 08:00 BP 100/55 10/04/23 08:00 Pulse Ox 96 10/04/23 08:00 FiO2 Intake & Output 10/03/23 10/04/23 10/04/23 18:59 06:59 18:59 Intake Total 930 0 Output Total 400 Balance 530 0 Intake: Oral 530 0 Hemodialysis 400 Output: Hemodialysis 400 Other: Voiding Method Urinal Urinal Urinal # Voids 1 - Exam In general patient is alert and oriented x 3 in no distress HEENT head normocephalic and atraumatic Neck is supple no JVD no goiter no lymphadenopathy no carotid bruit Chest examination is clear to auscultation no crackles no wheezing Cardiac exam reveals regular heart sounds S1 and S2 no gallops no murmurs Abdomen is soft nontender no organomegaly with normal bowel sounds Extremity exam reveals no edema no cyanosis or clubbing Neurological examination reveals no gross focal deficits - Labs CBC & Chem 7: 09/30/23 09:42 09/30/23 09:42 Assessment and Plan Plan: generalized weakness Fall with bilateral knee injury right pleural effusion Elevated troponin level Underlying history of hypertension Underlying history of hyperlipidemia Underlying history of coronary artery disease with history of stent placement Underlying history of end-stage renal disease on hemodialysis History of multiple myeloma at this time patient will be admitted to medical floor home medications reviewed and reordered pulmonary, cardiology and nephrology services are following Status post thoracentesis Will follow closely
[2023-10-04 11:46] LABS: Anisocytosis Slight; Basophils % (A) 1 %; Eosinophils # (A) 0.3 k/uL (0-0.7); Eosinophils % (A) 7 %; HCT 27.8 % (39.0-53.0); HGB 9.1 gm/dL (13.0-17.5); Lymphocytes # (A) 0.4 k/uL (1.0-4.8); Lymphocytes % (A) 10 %; MCH 35.7 pg (25.0-35.0); MCHC 32.8 g/dL (31.0-37.0); MCV 108.8 fL (80.0-100.0); Macrocytosis Marked; Mean Platelet Volume 9.2; Monocytes # (A) 0.5 k/uL (0-1.0); Monocytes % (A) 12 %; Neutrophils # (A) 2.6 k/uL (1.3-7.7); Neutrophils % (A) 66 %; RBC 2.56 m/uL (4.30-5.90); RDW 17.6 % (11.5-15.5)
[2023-10-04 11:53] LABS: Platelet Count 88 k/uL (150-450)
[2023-10-04 12:13] LABS: African American GFR (CKD) 16 (>60 ml/min/1.73 sqM); Anion Gap 2 mmol/L; Blood Urea Nitrogen 27 mg/dL (9-20); Calcium 8.5 mg/dL (8.4-10.2); Carbon Dioxide 32 mmol/L (22-30); Chloride 99 mmol/L (98-107); Glucose 94 mg/dL (74-99); Magnesium 1.8 mg/dL (1.6-2.3); Non-African American GFR(CKD) 14 (>60 ml/min/1.73 sqM); Potassium 4.3 mmol/L (3.5-5.1); Sodium 133 mmol/L (137-145)
--- NOTE | 2023-10-04 13:01 | P.PN ---
Subjective Progress Note Date: 10/04/23 Is a 77-year-old white male with past medical history significant for multiple myeloma, end-stage renal disease maintained on hemodialysis (on a Saturday, , Saturday schedule), previously maintained on peritoneal dialysis, hyperlipidemia, hypertension, coronary artery disease with recent stenting, BPH, GERD, among other things. Patient presented to emergency room yesterday morning with a chief complaint of multiple days of generalized weakness and it is progressively worse. Yesterday, the patient attempted to stand up and fell onto his knees. Denies head trauma. No focal deficits. Brain CT on arrival does not show any intracranial hemorrhage or mass effect. Due to his weakness, he di d miss his hemodialysis treatment yesterday. Patient is currently in the emergency department, room 4. He is on room air. SpO2 96%. He does endorse some exertional shortness of breath. Denies chest pain. Denies worsening lower extremity swelling. He denies any fevers. He does have an occasional intermittent mild nonproductive cough. No significant sputum production. Denies any nausea, vomiting, diarrhea, abdominal pain. He does have a abdominal peritoneal dialysis catheter. Also has a left subclavian hemodialysis catheter. Chest x-ray done on admission demonstrated a moderate size right pleural effusion. For this reason we are consulted. Of note, patient recently had a heart catheterization done 09/03/2023, he received a stent to the OM1. Denies missing any doses of Plavix or aspirin. He does have multiple myeloma, maintained on Revlimid. His oncologist is reportedly Dr. Whitt. CBC: WBC count 4.5, hemoglobin 10.7, hematocrit 32.3, platelets 101. BMP: Sodium 131, potassium 4.3, chloride 97, serum bicarb 23, BUN 77, creatinine 7.38, glucose 96. Lactic acid level 0.9. LFTs not elevated. Ammonia less than 9. Troponins mildly elevated but flat, 0.066, 0.054, and 0.056 respectively. Negative for influenza, RSV, COVID. Patient denies prior history of pleural effusions or thoracentesis. Afebrile. Hemodynamically stable. Progress note dated September 26, 2023. The patient is seen in room 352. The patient is not receiving any IV fluids. The patient is on room air. The plans for hemodialysis today is to remove 1.5 L of fluid. A chest x-ray was ordered for tomorrow. The patient has a right- sided pleural effusion. We are going to attempt a thoracentesis, but the patient will not be completed with hemodialysis till afternoon. No new labs today. Progress note dated September 27, 2023. The patient is seen today in room 352. The patient did have a right-sided thor acentesis earlier today, with 1.5 L of fluid being removed from the right pleural space. Patient tolerated procedure well. Currently, he is on room air. Is not receiving any IV fluid. No plans for hemodialysis today. Labs today include a sodium 133, potassium 4.3, chlorides 101, CO2 23, BUN 21, and creatinine 3.92. White Count 4.4, Hemoglobin 11.4, Hematocrit 34.2, Platelet Count 96,000. Chest x-ray shows improvement in the right-sided pleural effusion, without a postthoracentesis pneumothorax. Progress note dated September 28, 2023. The patient is seen today in room 352. His is in the room as is his daughter. Currently he is on room air. He is not receiving any IV fluids. He is scheduled for hemodialysis today, and apparently also has a scheduled MRI. Currently, his cough is improved. The fluid was sent for analysis, but is not yet back. No new labs noted. The pleural fluid appears to be an exudate, as the protein is more than 3 g. It is actually 3210 mg. The fluid LDH is 151. Progress note dated September 29, 2023. The patient is seen today in room 352. He is resting comfortably in bed. He is not on any fluids. He is not receiving any supplemental oxygen. His cough, is improved, but he still has a cough. His chest x-ray today continues to show a pleural effusion, on the right. It may be reaccumulating. No new labs today. Clinically, the patient appears much more stable. On 09/30/2023, the patient is being seen for a follow-up. The patient is doing well and the shortness of breath improved following the thoracentesis. The fluid cytology is still pending for now. The follow-up chest x-ray postthoracentesis showed improvement in the volume status and the patient continues to have some small amount of right-sided pleural effusion. Nevertheless, he continues to have persistent cough which is dry which is been ongoing for the past 4 months. The patient has a white cell count of 4 with a hemoglobin 9.8 and a platelet count of 19. Noted the patient has history of multiple myeloma.. Sodium levels at 124 with a potassium level of 3.7, BUN is 39 with a creatinine of 5.8 and a serum bicarb is currently at 25. Thoracentesis was done on 09/27/2023. The patient has end-stage renal disease on hemodialysis 3 times a week. The patient is also known to have CAD, hypertension hyperlipidemia and chronic multiple myeloma. On 10/01/2023, the patient is being seen for a follow-up. Doing well. No specific complaints. Still having some dry cough. CAT scan of the chest was done yesterday and the patient was found to have a small residual right-sided pleural effusion. Pleural fluid cytology from her previous pleurocentesis showed no evidence of any malignancy. The patient continues to undergo hemodialysis. Blood work from today shows a white cell count of 4 with a hemoglobin 9.8, sodium is at 124, BUN 39 with a creatinine of 5.8. The patient denies having any significant shortness of breath and the patient remains on room air oxygen. The patient is also on Lasix 80 mg p.o. twice a day. Urine output remains quite diminished at this point in time. No fever. No chills. No other complaints otherwise. On 10/02/2023, the patient is being seen for a follow-up. The patient remains on room air oxygen. He underwent hemodialysis yesterday. Earlier this morning, the patient was noted to be running a lower blood pressure. Systolic blood pressure was in the mid 80s. The patient accordingly was given a total of 250 cc of normal saline bolus and the patient was started on midodrine given 10 mg this morning. Lisinopril was placed on hold and amlodipine was also placed on hold by nephrology. No respiratory distress. Cough is gradually improving. White cell count at 4 with a hemoglobin 9.8 and the BUN is at 39 with a crea tinine of 5.8 on those labs from yesterday. Serum iron is low at 64. Ferritin level is elevated. The rest of the medication remains essentially unchanged. 10/03/2023, the patient is still having some issues with hypotension. The patient was given another bolus of half a liter and the subsequent blood pressures of 219/65. Earlier this morning, the BP was as low as 62/35. He was feeling slightly dizzy and this is improved with fluid and improvement in the blood pressure control. No respiratory distress. Nephrology on the case. Blood pressure medications have been adjusted. Nephrology is recommending hemodialysis without any ultrafiltration. Midodrine is added at a dose of 10 mg p.o. 3 times daily. Lisinopril has been discontinued. Lasix has been discontinued. The thiazide has also been discontinued as the patient had a component of hyponatremia. On 10/04/2023, seen the patient for a follow-up. The patient is normotensive today. He underwent hemodialysis without ultrafiltration. He was given also IV fluids as a bolus and the patient has responded nicely. His blood pressure medications being adjusted by the nephrology group. The patient remains on metoprolol 25 mg p.o. twice a day. Note that his cough is subsided. No significant shortness of breath and the patient remains on room air oxygen. The white cell count is 4 with a hemoglobin 9.1. BUN 27 with a creatinine of 3.96 and a sodium level is 133. Objective - Vital Signs Vital signs: Vital Signs Temp 97.6 F 10/04/23 08:00 Pulse 107 H 10/04/23 08:00 Resp 16 10/04/23 08:00 BP 100/55 10/04/23 08:00 Pulse Ox 96 10/04/23 08:00 FiO2 Intake & Output 10/03/23 10/04/23 10/04/23 18:59 06:59 18:59 Intake Total 930 0 Output Total 400 Balance 530 0 Intake: Oral 530 0 Hemodialysis 400 Output: Hemodialysis 400 Other: Voiding Method Urinal Urinal Urinal # Voids 1 - Exam No acute distress, oriented 3. Currently on room air. HEENT examination is grossly unremarkable. Mucous membranes are moist. No oral lesions. Neck supple. Full range of motion. No adenopathy thyromegaly or neck vein distention. Cardiovascular examination reveals regular rhythm rate. S1-S2 normal. No S3 or S4. No discernible murmur noted. Heart sounds distant. Lungs reveal improved breath sounds at the right lung base. Minimal dullness on percussion. Left lung is clear. No crackles. No wheezes. Abdomen soft bowel sounds are heard. No masses or tenderness. Extremities are intact. No cyanosis clubbing or edema. Skin is without rash or lesion. Neurologic examination is brief but nonfocal. - Labs CBC & Chem 7: 10/04/23 11:02 10/04/23 11:02 Assessment and Plan Plan: Shortness of breath, improved following a right-sided thoracentesis was done on 09/27/2023. A total of 1.5 L of fluid was aspirated. Fluid cytology still pending for now. The fluid is an exudate based on the protein criteria, and the pleural fluid cytology was negative for malignancy. Follow-up CAT scan of the chest showed a small residual right-sided pleural effusion. Right-sided pleural effusion postthoracentesis, exudative, pleural fluid cytology is negative. Rule out parapneumonic effusion Chronic persistent cough, CAT scan of the chest was noted, clinically improving End-stage renal disease, previously maintained on peritoneal dialysis, transiti oned to hemodialysis, on a Saturday, , Saturday schedule. Hypotension, given a bolus of normal saline and the patient is antihypertensive medications are currently on hold, the patient received fluid bolus, blood pressure is normalized and the patient is feeling much improved on today's eval uation, able to sit up on the chair without any major dizziness or any other symptoms. Elevated troponins, rule out an non-ST elevation SD. Coronary artery disease with recent history of PCI/stenting of the OM1 on 09/03/2023. History of hyperlipidemia. History of hypertension. History of multiple myeloma. Anemia of chronic disease. Chronic thrombocytopenia. History of BPH. History of GERD without esophagitis. Plan: Close monitoring of blood pressure Continue metoprolol Midodrine continue was done yesterday Hemodialysis without ultrafiltration CAT scan of the chest was reviewed. Small residual right-sided pleural effusion. Otherwise no other acute abnormalities. Patient is currently on room air oxygen Encourage use of incentive spirometer Continue Dr[facility] for cough and congestion Will continue to follow.
--- NOTE | 2023-10-04 19:58 | P.PN ---
Subjective Progress Note Date: 10/04/23 In follow-up pt reporting improvement in symptoms. Denies n/v today, tolerating oral intake. States abd distention improved. Having constipation, colace ordered. BP improved with midodrine. Plan is for discharge tomorrow after dialysis. CBC showed, WBC 4.0, hgb 9.1, plt 88 Objective - Vital Signs Vital signs: Vital Signs Temp 97.6 F 10/04/23 08:00 Pulse 107 H 10/04/23 08:00 Resp 16 10/04/23 08:00 BP 100/55 10/04/23 08:00 Pulse Ox 96 10/04/23 08:00 FiO2 Intake & Output 10/03/23 10/04/23 10/04/23 18:59 06:59 18:59 Intake Total 930 240 Output Total 400 Balance 530 240 Intake: Oral 530 240 Hemodialysis 400 Output: Hemodialysis 400 Other: Voiding Method Urinal Urinal Urinal # Voids 1 1 - Constitutional General appearance: Present: no acute distress - EENT Eyes: Present: EOMI ENT: Present: hearing grossly normal - Respiratory Details: breathing is even and unlabored - Cardiovascular Details: skin warm and dry - Gastrointestinal Gastrointestinal Comment(s): mild distention, no tenderness - Integumentary Integumentary: Absent: cyanotic, jaundiced - Musculoskeletal Musculoskeletal: Present: strength equal bilaterally - Psychiatric Psychiatric: Present: A&O x's 3 - Labs CBC & Chem 7: 10/04/23 11:02 10/04/23 11:02 - Imaging and Cardiology CT scan - abdomen: report reviewed Assessment and Plan (1) Pleural effusion Current Visit: Yes Status: Acute Priority: High Code(s): J90 - PLEURAL EFFUSION, NOT ELSEWHERE CLASSIFIED SNOMED Code(s): 97030239 (2) Weakness Current Visit: Yes Status: Acute Priority: High Code(s): R53.1 - WEAKNESS SNOMED Code(s): 60296159 (3) Multiple myeloma Current Visit: No Status: Chronic Priority: Medium Code(s): C90.00 - MULTIPLE MYELOMA NOT HAVING ACHIEVED REMISSION SNOMED Code(s): 263552147 Plan: Multiple myeloma -Well controlled disease for several years -Patient is currently on 2.5 mg of Revlimid on Tuesdays and Fridays. Cont to hold Revlimid. Will schedule clinic f/u in 2 weeks and reassess CBC, if counts stable will resumed Revlimid. and patient understands plan -Counts overall stable, especially in the setting acute illness. -Myeloma labs were also drawn in the office on the . They were stable at that time. No additional multiple myeloma labs at this time Pleural effusion -Right pleural effusion status postthoracentesis. Cytology neg for malignancy -No evidence of recurrence so far. Resp status stable. -Patient dry, hacking cough, has been started on cough syrup, better. -Pulmonary continues to follow Weakness -Suspect in part related to metabolic encephalopathy -Patient doing much better after hemodialkysis. - reports discussion of doing PT/OT at home. This is very reasonable. Chronic kidney disease on dialysis -Nephrology has seen pt -dialysis started -Patient has had significant improvement in his mental status, fluid status and in general physical status since having hemodialysis. Cont per Nephrology Pt had an episode of vomiting without nausea, with c/o abd bloating. Abd X ray ordered, showing no evidence of obstruction Pt ok from Hem/Onc standpoint for discharge once he has been cleared by Attending and consulting Physicians Doctor attests: I performed a history and physical examination of this patient, developed impression and plan of care. Discussed with dictator. I agree with dictators note, documented as a scribe
[2023-10-05 07:50] LABS: Anisocytosis Slight; Basophils % (A) 1 %; Eosinophils # (A) 0.3 k/uL (0-0.7); Eosinophils % (A) 8 %; HCT 25.6 % (39.0-53.0); HGB 8.4 gm/dL (13.0-17.5); Lymphocytes # (A) 0.4 k/uL (1.0-4.8); Lymphocytes % (A) 14 %; MCH 35.6 pg (25.0-35.0); MCHC 32.8 g/dL (31.0-37.0); MCV 108.5 fL (80.0-100.0); Macrocytosis Marked; Mean Platelet Volume 9.8; Monocytes # (A) 0.3 k/uL (0-1.0); Monocytes % (A) 11 %; Neutrophils # (A) 1.9 k/uL (1.3-7.7); Neutrophils % (A) 61 %; RBC 2.36 m/uL (4.30-5.90); RDW 17.7 % (11.5-15.5)
[2023-10-05 08:14] LABS: ALT 15 U/L (4-49); AST 28 U/L (17-59); African American GFR (CKD) 11 (>60 ml/min/1.73 sqM); Albumin 2.5 g/dL (3.5-5.0); Alkaline Phosphatase 85 U/L (38-126); Anion Gap 3 mmol/L; Blood Urea Nitrogen 36 mg/dL (9-20); Calcium 8.7 mg/dL (8.4-10.2); Carbon Dioxide 28 mmol/L (22-30); Chloride 100 mmol/L (98-107); Glucose 73 mg/dL (74-99); Non-African American GFR(CKD) 10 (>60 ml/min/1.73 sqM); Potassium 4.4 mmol/L (3.5-5.1); Sodium 131 mmol/L (137-145); Total Bilirubin 0.6 mg/dL (0.2-1.3); Total Protein 4.3 g/dL (6.3-8.2)
[2023-10-05 08:39] LABS: Platelet Count 81 k/uL (150-450)
--- NOTE | 2023-10-05 10:56 | P.PN ---
Subjective Patient is seen in follow-up for end-stage renal disease. He is maintained on hemodialysis on Saturday schedule. Resting in bed. Blood pressure better. Scheduled for dialysis today. No active complaints. Vital signs are stable. General: No acute distress. HEENT: Head exam is unremarkable. LUNGS: No audible rhonchi or wheezes. HEART: Rate and Rhythm are regular. ABDOMEN: Nontender. EXTREMITITES: No edema. Objective - Vital Signs Vital signs: Vital Signs Temp 97.5 F L 10/05/23 08:00 Pulse 85 10/05/23 09:08 Resp 16 10/05/23 09:08 BP 99/59 10/05/23 08:00 Pulse Ox 97 10/05/23 08:57 FiO2 21 10/05/23 08:57 Intake & Output 10/04/23 10/05/23 10/05/23 18:59 06:59 18:59 Intake Total 770 20 Balance 770 20 Intake: IV 20 Invasive Line 1 20 Oral 770 Other: Voiding Method Urinal Urinal Urinal # Voids 1 1 # Bowel Movements 1 - Labs CBC & Chem 7: 10/05/23 06:42 10/05/23 06:42 Labs: Abnormal Lab Results - Last 24 Hours (Table) 10/04/23 10/04/23 10/05/23 Range/Units 11:02 11:02 06:42 WBC 3.0 L (3.8-10.6) k/uL RBC 2.56 L 2.36 L (4.30-5.90) m/uL Hgb 9.1 L 8.4 L (13.0-17.5) gm/dL Hct 27.8 L 25.6 L (39.0-53.0) % MCV 108.8 H 108.5 H (80.0-100.0) fL MCH 35.7 H 35.6 H (25.0-35.0) pg RDW 17.6 H 17.7 H (11.5-15.5) % Plt Count 88 L 81 L (150-450) k/uL Lymphocytes # 0.4 L 0.4 L (1.0-4.8) k/uL Macrocytosis Marked A Marked A Sodium 133 L (137-145) mmol/L Carbon Dioxide 32 H (22-30) mmol/L BUN 27 H (9-20) mg/dL Creatinine 3.96 H (0.66-1.25) mg/dL Glucose (74-99) mg/dL Total Protein (6.3-8.2) g/dL Albumin (3.5-5.0) g/dL 10/05/23 Range/Units 06:42 WBC (3.8-10.6) k/uL RBC (4.30-5.90) m/uL Hgb (13.0-17.5) gm/dL Hct (39.0-53.0) % MCV (80.0-100.0) fL MCH (25.0-35.0) pg RDW (11.5-15.5) % Plt Count (150-450) k/uL Lymphocytes # (1.0-4.8) k/uL Macrocytosis Sodium 131 L (137-145) mmol/L Carbon Dioxide (22-30) mmol/L BUN 36 H (9-20) mg/dL Creatinine 5.37 H (0.66-1.25) mg/dL Glucose 73 L (74-99) mg/dL Total Protein 4.3 L (6.3-8.2) g/dL Albumin 2.5 L (3.5-5.0) g/dL Assessment and Plan Plan: Assessment: 1. End-stage renal disease maintained on hemodialysis on Saturday schedule via left chest permacath. 2. Pleural effusion status post right-sided thoracentesis with 1.[address] chest from September 30, 2023 showed small to moderate right pleural effusion. 3. Hypertension with chronic kidney disease. Blood pressure on the lower side. Improved. 4. Chronic kidney disease mineral bone disease. On Tums. 5. Coronary artery disease with recent cardiac stent placement. 6. Hyponatremia secondary to chronic kidney disease. Thiazide diuretic discontinued. 7. Anemia of chronic kidney disease. Iron replete. On Aranesp. Plan: Hemodialysis today. Maintain midodrine. Hold for systolic blood pressure greater than 110. Okay to give additional dose of midodrine during dialysis if systolic blood pressure below 100. Antihypertensives discontinued. Only on Lopressor.
--- NOTE | 2023-10-05 13:36 | P.PN ---
Subjective Progress Note Date: 10/05/23 Is a 77-year-old white male with past medical history significant for multiple myeloma, end-stage renal disease maintained on hemodialysis (on a Saturday, , Saturday schedule), previously maintained on peritoneal dialysis, hyperlipidemia, hypertension, coronary artery disease with recent stenting, BPH, GERD, among other things. Patient presented to emergency room yesterday morning with a chief complaint of multiple days of generalized weakness and it is progressively worse. Yesterday, the patient attempted to stand up and fell onto his knees. Denies head trauma. No focal deficits. Brain CT on arrival does not show any intracranial hemorrhage or mass effect. Due to his weakness, he di d miss his hemodialysis treatment yesterday. Patient is currently in the emergency department, room 4. He is on room air. SpO2 96%. He does endorse some exertional shortness of breath. Denies chest pain. Denies worsening lower extremity swelling. He denies any fevers. He does have an occasional intermittent mild nonproductive cough. No significant sputum production. Denies any nausea, vomiting, diarrhea, abdominal pain. He does have a abdominal peritoneal dialysis catheter. Also has a left subclavian hemodialysis catheter. Chest x-ray done on admission demonstrated a moderate size right pleural effusion. For this reason we are consulted. Of note, patient recently had a heart catheterization done 09/03/2023, he received a stent to the OM1. Denies missing any doses of Plavix or aspirin. He does have multiple myeloma, maintained on Revlimid. His oncologist is reportedly Dr. Whitt. CBC: WBC count 4.5, hemoglobin 10.7, hematocrit 32.3, platelets 101. BMP: Sodium 131, potassium 4.3, chloride 97, serum bicarb 23, BUN 77, creatinine 7.38, glucose 96. Lactic acid level 0.9. LFTs not elevated. Ammonia less than 9. Troponins mildly elevated but flat, 0.066, 0.054, and 0.056 respectively. Negative for influenza, RSV, COVID. Patient denies prior history of pleural effusions or thoracentesis. Afebrile. Hemodynamically stable. Progress note dated September 26, 2023. The patient is seen in room 352. The patient is not receiving any IV fluids. The patient is on room air. The plans for hemodialysis today is to remove 1.5 L of fluid. A chest x-ray was ordered for tomorrow. The patient has a right- sided pleural effusion. We are going to attempt a thoracentesis, but the patient will not be completed with hemodialysis till afternoon. No new labs today. Progress note dated September 27, 2023. The patient is seen today in room 352. The patient did have a right-sided thor acentesis earlier today, with 1.5 L of fluid being removed from the right pleural space. Patient tolerated procedure well. Currently, he is on room air. Is not receiving any IV fluid. No plans for hemodialysis today. Labs today include a sodium 133, potassium 4.3, chlorides 101, CO2 23, BUN 21, and creatinine 3.92. White Count 4.4, Hemoglobin 11.4, Hematocrit 34.2, Platelet Count 96,000. Chest x-ray shows improvement in the right-sided pleural effusion, without a postthoracentesis pneumothorax. Progress note dated September 28, 2023. The patient is seen today in room 352. His is in the room as is his daughter. Currently he is on room air. He is not receiving any IV fluids. He is scheduled for hemodialysis today, and apparently also has a scheduled MRI. Currently, his cough is improved. The fluid was sent for analysis, but is not yet back. No new labs noted. The pleural fluid appears to be an exudate, as the protein is more than 3 g. It is actually 3210 mg. The fluid LDH is 151. Progress note dated September 29, 2023. The patient is seen today in room 352. He is resting comfortably in bed. He is not on any fluids. He is not receiving any supplemental oxygen. His cough, is improved, but he still has a cough. His chest x-ray today continues to show a pleural effusion, on the right. It may be reaccumulating. No new labs today. Clinically, the patient appears much more stable. On 09/30/2023, the patient is being seen for a follow-up. The patient is doing well and the shortness of breath improved following the thoracentesis. The fluid cytology is still pending for now. The follow-up chest x-ray postthoracentesis showed improvement in the volume status and the patient continues to have some small amount of right-sided pleural effusion. Nevertheless, he continues to have persistent cough which is dry which is been ongoing for the past 4 months. The patient has a white cell count of 4 with a hemoglobin 9.8 and a platelet count of 19. Noted the patient has history of multiple myeloma.. Sodium levels at 124 with a potassium level of 3.7, BUN is 39 with a creatinine of 5.8 and a serum bicarb is currently at 25. Thoracentesis was done on 09/27/2023. The patient has end-stage renal disease on hemodialysis 3 times a week. The patient is also known to have CAD, hypertension hyperlipidemia and chronic multiple myeloma. On 10/01/2023, the patient is being seen for a follow-up. Doing well. No specific complaints. Still having some dry cough. CAT scan of the chest was done yesterday and the patient was found to have a small residual right-sided pleural effusion. Pleural fluid cytology from her previous pleurocentesis showed no evidence of any malignancy. The patient continues to undergo hemodialysis. Blood work from today shows a white cell count of 4 with a hemoglobin 9.8, sodium is at 124, BUN 39 with a creatinine of 5.8. The patient denies having any significant shortness of breath and the patient remains on room air oxygen. The patient is also on Lasix 80 mg p.o. twice a day. Urine output remains quite diminished at this point in time. No fever. No chills. No other complaints otherwise. On 10/02/2023, the patient is being seen for a follow-up. The patient remains on room air oxygen. He underwent hemodialysis yesterday. Earlier this morning, the patient was noted to be running a lower blood pressure. Systolic blood pressure was in the mid 80s. The patient accordingly was given a total of 250 cc of normal saline bolus and the patient was started on midodrine given 10 mg this morning. Lisinopril was placed on hold and amlodipine was also placed on hold by nephrology. No respiratory distress. Cough is gradually improving. White cell count at 4 with a hemoglobin 9.8 and the BUN is at 39 with a crea tinine of 5.8 on those labs from yesterday. Serum iron is low at 64. Ferritin level is elevated. The rest of the medication remains essentially unchanged. 10/03/2023, the patient is still having some issues with hypotension. The patient was given another bolus of half a liter and the subsequent blood pressures of 219/65. Earlier this morning, the BP was as low as 62/35. He was feeling slightly dizzy and this is improved with fluid and improvement in the blood pressure control. No respiratory distress. Nephrology on the case. Blood pressure medications have been adjusted. Nephrology is recommending hemodialysis without any ultrafiltration. Midodrine is added at a dose of 10 mg p.o. 3 times daily. Lisinopril has been discontinued. Lasix has been discontinued. The thiazide has also been discontinued as the patient had a component of hyponatremia. On 10/04/2023, seen the patient for a follow-up. The patient is normotensive today. He underwent hemodialysis without ultrafiltration. He was given also IV fluids as a bolus and the patient has responded nicely. His blood pressure medications being adjusted by the nephrology group. The patient remains on metoprolol 25 mg p.o. twice a day. Note that his cough is subsided. No significant shortness of breath and the patient remains on room air oxygen. The white cell count is 4 with a hemoglobin 9.1. BUN 27 with a creatinine of 3.96 and a sodium level is 133. 10/05/2023, the patient remains on room air oxygen. No significant coughing. Supposed to undergo hemodialysis today. BP is under adequate control. Remains on room air oxygen. No significant events overnight. White cell count is at 3 with a hemoglobin 8.4 and platelet count of 81. Sodium is at 131 with a BUN of 36 and a creatinine of 5.3 with a potassium level of 4.4. He has end-stage renal disease and is scheduled to undergo hemodialysis today. No complaints. Objective - Vital Signs Vital signs: Vital Signs Temp 97.5 F L 10/05/23 08:00 Pulse 85 10/05/23 09:08 Resp 16 10/05/23 09:08 BP 99/59 10/05/23 08:00 Pulse Ox 97 10/05/23 08:57 FiO2 21 10/05/23 08:57 Intake & Output 10/04/23 10/05/23 10/05/23 18:59 06:59 18:59 Intake Total 770 20 Balance 770 20 Intake: IV 20 Invasive Line 1 20 Oral 770 Other: Voiding Method Urinal Urinal # Voids 1 1 # Bowel Movements 1 - Exam No acute distress, oriented 3. Currently on room air. HEENT examination is grossly unremarkable. Mucous membranes are moist. No oral lesions. Neck supple. Full range of motion. No adenopathy thyromegaly or neck vein distention. Cardiovascular examination reveals regular rhythm rate. S1-S2 normal. No S3 or S4. No discernible murmur noted. Heart sounds distant. Lungs reveal improved breath sounds at the right lung base. Minimal dullness on percussion. Left lung is clear. No crackles. No wheezes. Abdomen soft bowel sounds are heard. No masses or tenderness. Extremities are intact. No cyanosis clubbing or edema. Skin is without rash or lesion. Neurologic examination is brief but nonfocal. - Labs CBC & Chem 7: 10/05/23 06:42 10/05/23 06:42 Labs: Abnormal Lab Results - Last 24 Hours (Table) 10/04/23 10/04/23 10/05/23 Range/Units 11:02 11:02 06:42 WBC 3.0 L (3.8-10.6) k/uL RBC 2.56 L 2.36 L (4.30-5.90) m/uL Hgb 9.1 L 8.4 L (13.0-17.5) gm/dL Hct 27.8 L 25.6 L (39.0-53.0) % MCV 108.8 H 108.5 H (80.0-100.0) fL MCH 35.7 H 35.6 H (25.0-35.0) pg RDW 17.6 H 17.7 H (11.5-15.5) % Plt Count 88 L 81 L (150-450) k/uL Lymphocytes # 0.4 L 0.4 L (1.0-4.8) k/uL Macrocytosis Marked A Marked A Sodium 133 L (137-145) mmol/L Carbon Dioxide 32 H (22-30) mmol/L BUN 27 H (9-20) mg/dL Creatinine 3.96 H (0.66-1.25) mg/dL Glucose (74-99) mg/dL Total Protein (6.3-8.2) g/dL Albumin (3.5-5.0) g/dL 10/05/23 Range/Units 06:42 WBC (3.8-10.6) k/uL RBC (4.30-5.90) m/uL Hgb (13.0-17.5) gm/dL Hct (39.0-53.0) % MCV (80.0-100.0) fL MCH (25.0-35.0) pg RDW (11.5-15.5) % Plt Count (150-450) k/uL Lymphocytes # (1.0-4.8) k/uL Macrocytosis Sodium 131 L (137-145) mmol/L Carbon Dioxide (22-30) mmol/L BUN 36 H (9-20) mg/dL Creatinine 5.37 H (0.66-1.25) mg/dL Glucose 73 L (74-99) mg/dL Total Protein 4.3 L (6.3-8.2) g/dL Albumin 2.5 L (3.5-5.0) g/dL Assessment and Plan Plan: Shortness of breath, improved following a right-sided thoracentesis was done on 09/27/2023. A total of 1.5 L of fluid was aspirated. Fluid cytology still pending for now. The fluid is an exudate based on the protein criteria, and the pleural fluid cytology was negative for malignancy. Follow-up CAT scan of the chest showed a small residual right-sided pleural effusion. Right-sided pleural effusion postthoracentesis, exudative, pleural fluid cytology is negative. Rule out parapneumonic effusion Chronic persistent cough, CAT scan of the chest was noted, clinically improved and almost recovered End-stage renal disease, previously maintained on peritoneal dialysis, transitioned to hemodialysis, on a Saturday, , Saturday schedule. The patient is scheduled to undergo hemodialysis today. Hypotension, given a bolus of normal saline and the patient is antihypertensive medications are currently on hold, the patient received fluid bolus, blood p ressure is normalized and the patient is feeling much improved on today's evaluation, able to sit up on the chair without any major dizziness or any other symptoms. Elevated troponins, rule out an non-ST elevation MA. Coronary artery disease with recent history of PCI/stenting of the OM1 on 2023. History of hyperlipidemia. History of hypertension. History of multiple myeloma. Anemia of chronic disease. Chronic thrombocytopenia. History of BPH. History of GERD without esophagitis. Plan: Dialysis today. Close monitoring of blood pressure, BP stable for now. Continue metoprolol Continue midodrine. Patient is on room air oxygen. CAT scan of the chest was reviewed. Small residual right-sided pleural effusion. Otherwise no other acute abnormalities. Patient is currently on room air oxygen Encourage use of incentive spirometer Continue DuoNeb updrafts Mucinex for cough and congestion Will continue to follow.
[2023-10-06 08:01] LABS: Anisocytosis Slight; Basophils % (A) 1 %; Eosinophils # (A) 0.3 k/uL (0-0.7); Eosinophils % (A) 7 %; HCT 28.4 % (39.0-53.0); HGB 9.4 gm/dL (13.0-17.5); Lymphocytes # (A) 0.3 k/uL (1.0-4.8); Lymphocytes % (A) 8 %; MCH 35.9 pg (25.0-35.0); MCHC 33.1 g/dL (31.0-37.0); MCV 108.5 fL (80.0-100.0); Macrocytosis Marked; Mean Platelet Volume 8.7; Monocytes # (A) 0.4 k/uL (0-1.0); Monocytes % (A) 9 %; Neutrophils # (A) 2.8 k/uL (1.3-7.7); Neutrophils % (A) 72 %; RBC 2.62 m/uL (4.30-5.90); RDW 17.4 % (11.5-15.5); WBC 3.9 k/uL (3.8-10.6)
[2023-10-06 08:25] LABS: ALT 16 U/L (4-49); AST 31 U/L (17-59); African American GFR (CKD) 19 (>60 ml/min/1.73 sqM); Alkaline Phosphatase 105 U/L (38-126); Anion Gap 4 mmol/L; Blood Urea Nitrogen 20 mg/dL (9-20); Calcium 8.7 mg/dL (8.4-10.2); Carbon Dioxide 30 mmol/L (22-30); Chloride 101 mmol/L (98-107); Glucose 96 mg/dL (74-99); Non-African American GFR(CKD) 16 (>60 ml/min/1.73 sqM); Potassium 4.3 mmol/L (3.5-5.1); Sodium 135 mmol/L (137-145); Total Bilirubin 0.9 mg/dL (0.2-1.3); Total Protein 4.9 g/dL (6.3-8.2)
[2023-10-06 08:30] LABS: Platelet Count 96 k/uL (150-450)
[2023-10-06 10:03] VITALS: BP 163/78; PULSE 94; RESP 16; TEMP 97.5
--- NOTE | 2023-10-06 10:05 | P.DS ---
Providers Date of admission: 09/24/23 14:39 Expected date of discharge: 10/06/23 Attending physician: Fred Lawrence Consults: 09/24/23 14:35 Consult Physician Routine Consulting Provider: Maximino Moss Consult Reason/Comments: pleural effusion Do you want consulting provider notified?: Yes 09/24/23 14:50 Consult Physician Routine Consulting Provider: Abbi Hawkins Consult Reason/Comments: dialysis Do you want consulting provider notified?: Yes 09/25/23 06:02 Consult Physician Routine Consulting Provider: Leeroy Whitt Consult Reason/Comments: MM, known Do you want consulting provider notified?: Yes, Notify in am 09/25/23 10:19 Consult Physician Routine Consulting Provider: Venecia Johnson Consult Reason/Comments: ams Do you want consulting provider notified?: Yes Primary care physician: Fred Lawrence [facility] Course: Discharge diagnosis generalized weakness Fall with bilateral knee injury right pleural effusion Elevated troponin level Underlying history of hypertension Underlying history of hyperlipidemia Underlying history of coronary artery disease with history of stent placement Underlying history of end-stage renal disease on hemodialysis History of multiple myeloma Hospital course Dean Earl, is a77 year old male who presented to [facility] emergency room with a chief complaint of generalized weakness and fall He was evaluated in the emergency room vital examination on presentation revealed a temperature of 97.3 pulse 67 respiration 22 blood pressure 141/74 pulse ox 95% on room air Laboratory data reveals a white blood count of 4.5 hemoglobin 10.7 platelet count 101 BUN 77 creatinine 7.38 troponin level 0.066 Testing in the emergency room revealed computed tomography scan of the brain revealed chronic small vessel ischemic changes without acute intracranial process, chest x-ray done in the emergency room revealed [id number] right pleural effusion, EKG revealed sinus rhythm with first-degree AV block and left axis deviation Patient was admitted to medical floor for further evaluation and treatment Past medical history is significant for end-stage renal disease on hemodialysis, hypertension, hyperlipidemia, coronary artery disease with history of angioplasty and stent placement, On 09/25/2023 patient is resting comfortably in bed at bedside. Possible thoracentesis today per pulmonary. Neurology services have been consulted for ongoing confusion. Patient also to get hemodialysis today per nephrology services. Current vital signs temp 98.2, heart 77, respiratory rate 20, blood pressure 143/80 with pulse ox 96% on room air on 09/26/2023 patient was seen and examined on the medical floor he is alert slightly confused in no apparent distress, there is no fever or chills no headache or dizziness no chest pain no shortness of breath no cough no nausea or vomiting no abdominal pain no diarrhea and no urinary symptoms. Vital exam reveals a temperature of 97.8 pulse 87 respiration 16 and blood pressure 153/85 pulse ox 95% on room air on 09/27/2023 patient was seen and examined on the medical floor he is alert and oriented 3 in no apparent distress he is complaining of cough and difficulty taking it breath otherwise he denies any complaints there is no fever or chills no headache or dizziness, no chest pain no nausea or vomiting no abdominal pain no diarrhea and no urinary symptoms. He underwent right sided thoracentesis earlier today with 1.5 L of fluid removed, patient is receiving hemodialysis, pulmonary and nephrologyand hematology are following on 09/28/2023 patient was seen and examined on the medical floor he is alert and oriented 3 in no apparent distress he is complaining of cough and difficulty taking it breath otherwise he denies any complaints there is no fever or chills no headache or dizziness, no chest pain no nausea or vomiting no abdominal pain no diarrhea and no urinary symptoms. patient is scheduled for hemodialysis today, he is also scheduled for brain MRI, will continue to follow closely. on 09/28/2022 for patient's alert and oriented 3. Patient underwent MRI of the brain showing no evidence of intracranial mass or acute subacute infarct nonspecific white matter changes likely secondary to small vessel ischemic disease.current vital signs temp 97.6, heart rate 76, respiratory rate 16, blood pressure 126/69 with pulse ox 96% on room air.neurology, nephrology and pulmonary services are following on 09/30/2023 patient was seen and examined on the medical floor he is alert and oriented 3 in no apparent distress there is no fever or chills no headache or dizziness, shortness of breath has improved, there is no chest pain he has occasional cough no nausea or vomiting no abdominal pain no diarrhea and no urinary symptoms, at this time we are still awaiting pleural fluid cytology, pulmonary recommending computed tomography scan of the chest without contrast, MRI of the brain and neurology input reviewed, will continue to follow closely. on 10/01/2023 patient was seen and examined on the medical floor he is alert and oriented 3 in no apparent distress, he is complaining of cough and generalized weakness otherwise he denies any complaints, there is no fever or chills no headache or dizziness no chest pain no shortness of breath, no nausea or vomiting no abdominal pain no diarrhea and no urinary symptoms, he received hemodialysis today, cytology from the thoracentesis fluid was negative for malignancy, per pulmonary no need to repeat thoracentesis, will continue to mon itor possible discharge in the next 1-2 days On 10/02/2023 patient is alert and oriented 3. Patient having episodes of low blood pressure parameter set to lisinopril and Lopressor. We'll continue to monitor at this time patient denies chest pain or shortness of breath. Patient denies nausea vomiting or diarrhea. Patient denies any urinary burning or frequency on 10/03/2023 patient was seen and examined on the medical floor he is alert and oriented 3 in no apparent distress, this morning patient had an episode of vomiting. this morning he had significantly low blood pressure of 70/46 he received a normal saline fluid bolus, dose of midodrine was adjusted by nephrology, currently he is receiving hemodialysis, otherwise he denies any complaints there is no fever or chills no headache or dizziness no chest pain no shortness of breath no cough no abdominal pain no diarrhea and no urinary symptoms On 10/04/2023 patient's alert and oriented 3. Patient's blood pressure is improved today complaining of constipation will order Colace.Current vital signs temp 97.6, heart rate 96, blood pressure 100/55 with a pulse ox of 96% on room air. Patient denies chest pain or shortness of breath. Patient denies any urinary burning or frequency on 10/03/2023 patient was seen and examined on the medical floor he is alert and oriented 3 in no apparent distress, otherwise he denies any complaints there is no fever or chills no headache or dizziness no chest pain no shortness of breath no cough no abdominal pain no diarrhea and no urinary symptoms, patient is scheduled for hemodialysis today. On 10/06/2023 patient is alert and oriented x 3 eager to be DC'd home.. Discussed medication with nephrology services okay for patient to be DC'd without lisinopril Norvasc Lasix. Patient will follow-up with nephrology and continue hemodialysis outpatient. At this time patient denies chest pain or shortness of breath. Patient denies nausea vomiting or diarrhea. Patient serenity es any urinary burning or frequency Patient Condition at Discharge: Stable Plan - Discharge Summary Discharge Rx Participant: No New Discharge Prescriptions: New Darbepoetin Ruiz [Aranesp] 40 mcg SQ Q7D each Midodrine [ProAmatine] 10 mg PO AC-TID 30 Days #90 tab Continue valACYclovir HCL [Valtrex] 500 mg PO DAILY Omeprazole [PriLOSEC] 20 mg PO DAILY Pro-Renal + Vit D (Unknown) 1 tab PO DAILY Pregabalin [Lyrica] 75 mg PO BID Metoprolol Tartrate [Lopressor] 25 mg PO BID Finasteride [Proscar] 5 mg PO HS Diphenox-Atrop 2.5-0.025 mg [Lomotil] 1 tab PO DAILY PRN PRN Reason: Diarrhea Micera 50mcg/0.3ml 50 mcg INJ Q14D calcitrioL 0.5 mcg PO DIRECTED Magnesium Oxide [Mag-Ox] 400 mg PO DAILY Tamsulosin [Flomax] 0.4 mg PO HS Cyanocobalamin (Vitamin B-12) [Vitamin B-12] 1,000 mcg PO DAILY Clopidogrel [Plavix] 75 mg PO DAILY #90 tab Calcium Carbonate [Tums] 1,000 mg PO W/BRKFST Calcium Carbonate [Tums] 3,000 mg PO QID Sodium Bicarbonate Tab 650 mg PO BID Potassium Chloride ER [K-Dur 20] 20 meq PO HS Ergocalciferol (Vitamin D2) [Drisdol (50,000 Iu)] 1,250 mcg PO SA Aspirin [Adult Low Dose Aspirin EC] 81 mg PO DAILY Nitroglycerin Sl Tabs [Nitrostat] 0.4 mg SUBLINGUAL Q5M PRN #25 tab PRN Reason: Chest Pain Calcium Carb-Magnesium Carb 250-300mg (Magnebind 300) 1 tab PO DIRECTED Rosuvastatin [Crestor] 20 mg PO HS Discontinued Lenalidomide [Revlimid] 2.5 mg PO MOTH Midodrine [ProAmatine] 10 mg PO Q6H PRN PRN Reason: if BP less than 110 Furosemide [Lasix] 80 mg PO BID Sulfamethox-Tmp 800-160Mg [Bactrim DS 800-160 mg] 1 tab PO MOWEFR lisinopriL [Zestril] 10 mg PO BID metOLazone 5 mg PO BID amLODIPine [Norvasc] 5 mg PO DAILY Discharge Medication List Omeprazole [PriLOSEC] 20 mg PO DAILY 08/18/16 [History] valACYclovir HCL [Valtrex] 500 mg PO DAILY 08/18/16 [History] Finasteride [Proscar] 5 mg PO HS 03/30/18 [History] Metoprolol Tartrate [Lopressor] 25 mg PO BID 03/30/18 [History] Pregabalin [Lyrica] 75 mg PO BID 03/30/18 [History] Pro-Renal + Vit D (Unknown) 1 tab PO DAILY 03/30/18 [History] Diphenox-Atrop 2.5-0.025 mg [Lomotil] 1 tab PO DAILY PRN 05/21/23 [History] Ergocalciferol (Vitamin D2) [Drisdol (50,000 Iu)] 1,250 mcg PO SA 05/21/23 [History] Magnesium Oxide [Mag-Ox] 400 mg PO DAILY 05/21/23 [History] Micera 50mcg/0.3ml 50 mcg INJ Q14D 05/21/23 [History] Potassium Chloride ER [K-Dur 20] 20 meq PO HS 05/21/23 [History] Sodium Bicarbonate Tab 650 mg PO BID 05/21/23 [History] Tamsulosin [Flomax] 0.4 mg PO HS 05/21/23 [History] calcitrioL 0.5 mcg PO DIRECTED 05/21/23 [History] Cyanocobalamin (Vitamin B-12) [Vitamin B-12] 1,000 mcg PO DAILY 06/18/23 [History] Aspirin [Adult Low Dose Aspirin EC] 81 mg PO DAILY 06/24/23 [History] Clopidogrel [Plavix] 75 mg PO DAILY #90 tab 09/04/23 [Rx] Nitroglycerin Sl Tabs [Nitrostat] 0.4 mg SUBLINGUAL Q5M PRN #25 tab 09/04/23 [Rx] Calcium Carb-Magnesium Carb 250-300mg (Magnebind 300) 1 tab PO DIRECTED 09/24/23 [History] Calcium Carbonate [Tums] 1,000 mg PO W/BRKFST 09/24/23 [History] Calcium Carbonate [Tums] 3,000 mg PO QID 09/24/23 [History] Rosuvastatin [Crestor] 20 mg PO HS 09/24/23 [History] Darbepoetin Ruiz [Aranesp] 40 mcg SQ Q7D each 10/06/23 [Rx] Midodrine [ProAmatine] 10 mg PO AC-TID 30 Days #90 tab 10/06/23 [Rx] Follow up Appointment(s)/Referral(s): Leeroy Whitt [STAFF PHYSICIAN] - 12/09/23 2:00 pm [facility], [NON-STAFF] - Fred Lawrence MD [Primary Care Provider] - 1-2 days Discharge Disposition: HOME WITH HOME HEALTH SERVICES
--- NOTE | 2023-10-06 10:15 | P.PN ---
Subjective Patient is seen in follow-up for end-stage renal disease. He is maintained on hemodialysis on Saturday schedule. Resting in bed. Blood pressure better. No problems with dialysis yesterday. Vital signs are stable. General: No acute distress. HEENT: Head exam is unremarkable. LUNGS: No audible rhonchi or wheezes. HEART: Rate and Rhythm are regular. ABDOMEN: Nontender. EXTREMITITES: No edema. Objective - Vital Signs Vital signs: Vital Signs Temp 97.5 F L 10/06/23 08:00 Pulse 94 10/06/23 08:00 Resp 16 10/06/23 08:00 BP 163/78 10/06/23 08:00 Pulse Ox 97 10/06/23 08:00 FiO2 21 10/05/23 08:57 Intake & Output 10/05/23 10/06/23 10/06/23 18:59 06:59 18:59 Intake Total 1100 480 Output Total 400 Balance 700 480 Weight 84.9 kg Intake: Oral 700 480 Hemodialysis 400 Output: Hemodialysis 400 Other: Voiding Method Urinal Urinal # Voids 4 2 # Bowel Movements 2 - Labs CBC & Chem 7: 10/06/23 07:19 10/06/23 07:19 Labs: Abnormal Lab Results - Last 24 Hours (Table) 10/06/23 10/06/23 Range/Units 07:19 07:19 RBC 2.62 L (4.30-5.90) m/uL Hgb 9.4 L (13.0-17.5) gm/dL Hct 28.4 L (39.0-53.0) % MCV 108.5 H (80.0-100.0) fL MCH 35.9 H (25.0-35.0) pg RDW 17.4 H (11.5-15.5) % Plt Count 96 L (150-450) k/uL Lymphocytes # 0.3 L (1.0-4.8) k/uL Macrocytosis Marked A Sodium 135 L (137-145) mmol/L Creatinine 3.47 H (0.66-1.25) mg/dL Total Protein 4.9 L (6.3-8.2) g/dL Albumin 3.0 L (3.5-5.0) g/dL Assessment and Plan Plan: Assessment: 1. End-stage renal disease maintained on hemodialysis on Saturday schedule via left chest permacath. 2. Pleural effusion status post right-sided thoracentesis with 1.[address] chest from September 30, 2023 showed small to moderate right pleural effusion. 3. Hypertension with chronic kidney disease. Patient quite hypotensive this admission. Antihypertensive stopped. Blood pressure better. 4. Chronic kidney disease mineral bone disease. On Tums. 5. Coronary artery disease with recent cardiac stent placement. 6. Hyponatremia secondary to chronic kidney disease. Thiazide diuretic discontinued. 7. Anemia of chronic kidney disease. Iron replete. On . Plan: Hemodialysis Saturday. Maintain midodrine. Hold for systolic blood pressure greater than 110. Okay to give additional dose of midodrine during dialysis if systolic blood pressure below 100. Antihypertensives discontinued. Only on Lopressor. Will give prescription for hydralazine 25 mg 2-3 times daily. To start taking if home blood pressure is staying above 140/90. Hold potassium supplementation for now as well.
--- NOTE | 2023-10-06 11:03 | P.PN ---
Subjective Progress Note Date: 10/06/23 Is a 77-year-old white male with past medical history significant for multiple myeloma, end-stage renal disease maintained on hemodialysis (on a Saturday, , Saturday schedule), previously maintained on peritoneal dialysis, hyperlipidemia, hypertension, coronary artery disease with recent stenting, BPH, GERD, among other things. Patient presented to emergency room yesterday morning with a chief complaint of multiple days of generalized weakness and it is progressively worse. Yesterday, the patient attempted to stand up and fell onto his knees. Denies head trauma. No focal deficits. Brain CT on arrival does not show any intracranial hemorrhage or mass effect. Due to his weakness, he di d miss his hemodialysis treatment yesterday. Patient is currently in the emergency department, room 4. He is on room air. SpO2 96%. He does endorse some exertional shortness of breath. Denies chest pain. Denies worsening lower extremity swelling. He denies any fevers. He does have an occasional intermittent mild nonproductive cough. No significant sputum production. Denies any nausea, vomiting, diarrhea, abdominal pain. He does have a abdominal peritoneal dialysis catheter. Also has a left subclavian hemodialysis catheter. Chest x-ray done on admission demonstrated a moderate size right pleural effusion. For this reason we are consulted. Of note, patient recently had a heart catheterization done 09/03/2023, he received a stent to the OM1. Denies missing any doses of Plavix or aspirin. He does have multiple myeloma, maintained on Revlimid. His oncologist is reportedly Dr. Whitt. CBC: WBC count 4.5, hemoglobin 10.7, hematocrit 32.3, platelets 101. BMP: Sodium 131, potassium 4.3, chloride 97, serum bicarb 23, BUN 77, creatinine 7.38, glucose 96. Lactic acid level 0.9. LFTs not elevated. Ammonia less than 9. Troponins mildly elevated but flat, 0.066, 0.054, and 0.056 respectively. Negative for influenza, RSV, COVID. Patient denies prior history of pleural effusions or thoracentesis. Afebrile. Hemodynamically stable. Progress note dated September 26, 2023. The patient is seen in room 352. The patient is not receiving any IV fluids. The patient is on room air. The plans for hemodialysis today is to remove 1.5 L of fluid. A chest x-ray was ordered for tomorrow. The patient has a right- sided pleural effusion. We are going to attempt a thoracentesis, but the patient will not be completed with hemodialysis till afternoon. No new labs today. Progress note dated September 27, 2023. The patient is seen today in room 352. The patient did have a right-sided thor acentesis earlier today, with 1.5 L of fluid being removed from the right pleural space. Patient tolerated procedure well. Currently, he is on room air. Is not receiving any IV fluid. No plans for hemodialysis today. Labs today include a sodium 133, potassium 4.3, chlorides 101, CO2 23, BUN 21, and creatinine 3.92. White Count 4.4, Hemoglobin 11.4, Hematocrit 34.2, Platelet Count 96,000. Chest x-ray shows improvement in the right-sided pleural effusion, without a postthoracentesis pneumothorax. Progress note dated September 28, 2023. The patient is seen today in room 352. His is in the room as is his daughter. Currently he is on room air. He is not receiving any IV fluids. He is scheduled for hemodialysis today, and apparently also has a scheduled MRI. Currently, his cough is improved. The fluid was sent for analysis, but is not yet back. No new labs noted. The pleural fluid appears to be an exudate, as the protein is more than 3 g. It is actually 3210 mg. The fluid LDH is 151. Progress note dated September 29, 2023. The patient is seen today in room 352. He is resting comfortably in bed. He is not on any fluids. He is not receiving any supplemental oxygen. His cough, is improved, but he still has a cough. His chest x-ray today continues to show a pleural effusion, on the right. It may be reaccumulating. No new labs today. Clinically, the patient appears much more stable. On 09/30/2023, the patient is being seen for a follow-up. The patient is doing well and the shortness of breath improved following the thoracentesis. The fluid cytology is still pending for now. The follow-up chest x-ray postthoracentesis showed improvement in the volume status and the patient continues to have some small amount of right-sided pleural effusion. Nevertheless, he continues to have persistent cough which is dry which is been ongoing for the past 4 months. The patient has a white cell count of 4 with a hemoglobin 9.8 and a platelet count of 19. Noted the patient has history of multiple myeloma.. Sodium levels at 124 with a potassium level of 3.7, BUN is 39 with a creatinine of 5.8 and a serum bicarb is currently at 25. Thoracentesis was done on 09/27/2023. The patient has end-stage renal disease on hemodialysis 3 times a week. The patient is also known to have CAD, hypertension hyperlipidemia and chronic multiple myeloma. On 10/01/2023, the patient is being seen for a follow-up. Doing well. No specific complaints. Still having some dry cough. CAT scan of the chest was done yesterday and the patient was found to have a small residual right-sided pleural effusion. Pleural fluid cytology from her previous pleurocentesis showed no evidence of any malignancy. The patient continues to undergo hemodialysis. Blood work from today shows a white cell count of 4 with a hemoglobin 9.8, sodium is at 124, BUN 39 with a creatinine of 5.8. The patient denies having any significant shortness of breath and the patient remains on room air oxygen. The patient is also on Lasix 80 mg p.o. twice a day. Urine output remains quite diminished at this point in time. No fever. No chills. No other complaints otherwise. On 10/02/2023, the patient is being seen for a follow-up. The patient remains on room air oxygen. He underwent hemodialysis yesterday. Earlier this morning, the patient was noted to be running a lower blood pressure. Systolic blood pressure was in the mid 80s. The patient accordingly was given a total of 250 cc of normal saline bolus and the patient was started on midodrine given 10 mg this morning. Lisinopril was placed on hold and amlodipine was also placed on hold by nephrology. No respiratory distress. Cough is gradually improving. White cell count at 4 with a hemoglobin 9.8 and the BUN is at 39 with a crea tinine of 5.8 on those labs from yesterday. Serum iron is low at 64. Ferritin level is elevated. The rest of the medication remains essentially unchanged. 10/03/2023, the patient is still having some issues with hypotension. The patient was given another bolus of half a liter and the subsequent blood pressures of 219/65. Earlier this morning, the BP was as low as 62/35. He was feeling slightly dizzy and this is improved with fluid and improvement in the blood pressure control. No respiratory distress. Nephrology on the case. Blood pressure medications have been adjusted. Nephrology is recommending hemodialysis without any ultrafiltration. Midodrine is added at a dose of 10 mg p.o. 3 times daily. Lisinopril has been discontinued. Lasix has been discontinued. The thiazide has also been discontinued as the patient had a component of hyponatremia. On 10/04/2023, seen the patient for a follow-up. The patient is normotensive today. He underwent hemodialysis without ultrafiltration. He was given also IV fluids as a bolus and the patient has responded nicely. His blood pressure medications being adjusted by the nephrology group. The patient remains on metoprolol 25 mg p.o. twice a day. Note that his cough is subsided. No significant shortness of breath and the patient remains on room air oxygen. The white cell count is 4 with a hemoglobin 9.1. BUN 27 with a creatinine of 3.96 and a sodium level is 133. 10/05/2023, the patient remains on room air oxygen. No significant coughing. Supposed to undergo hemodialysis today. BP is under adequate control. Remains on room air oxygen. No significant events overnight. White cell count is at 3 with a hemoglobin 8.4 and platelet count of 81. Sodium is at 131 with a BUN of 36 and a creatinine of 5.3 with a potassium level of 4.4. He has end-stage renal disease and is scheduled to undergo hemodialysis today. No complaints. 10/06/2023, the patient is doing well. No specific complaints. Underwent hemodialysis yesterday. He is currently on room air oxygen. Hemodynamically stable. Labs from today shows a hemoglobin of 9.4, white cell count of 3.9, electrolytes all within normal limits, BUN is 20 with a creatinine of 3.47. Objective - Vital Signs Vital signs: Vital Signs Temp 97.5 F L 10/06/23 08:00 Pulse 94 10/06/23 08:00 Resp 16 10/06/23 08:00 BP 163/78 10/06/23 08:00 Pulse Ox 97 10/06/23 08:00 FiO2 21 10/05/23 08:57 Intake & Output 10/05/23 10/06/23 10/06/23 18:59 06:59 18:59 Intake Total 1100 480 Output Total 400 Balance 700 480 Weight 84.9 kg Intake: Oral 700 480 Hemodialysis 400 Output: Hemodialysis 400 Other: Voiding Method Urinal Urinal Urinal # Voids 4 2 # Bowel Movements 2 - Exam No acute distress, oriented 3. Currently on room air. HEENT examination is grossly unremarkable. Mucous membranes are moist. No oral lesions. Neck supple. Full range of motion. No adenopathy thyromegaly or neck vein distention. Cardiovascular examination reveals regular rhythm rate. S1-S2 normal. No S3 or S4. No discernible murmur noted. Heart sounds distant. Lungs reveal improved breath sounds at the right lung base. Minimal dullness on percussion. Left lung is clear. No crackles. No wheezes. Abdomen soft bowel sounds are heard. No masses or tenderness. Extremities are intact. No cyanosis clubbing or edema. Skin is without rash or lesion. Neurologic examination is brief but nonfocal. - Labs CBC & Chem 7: 10/06/23 07:19 10/06/23 07:19 Labs: Abnormal Lab Results - Last 24 Hours (Table) 10/06/23 10/06/23 Range/Units 07:19 07:19 RBC 2.62 L (4.30-5.90) m/uL Hgb 9.4 L (13.0-17.5) gm/dL Hct 28.4 L (39.0-53.0) % MCV 108.5 H (80.0-100.0) fL MCH 35.9 H (25.0-35.0) pg RDW 17.4 H (11.5-15.5) % Plt Count 96 L (150-450) k/uL Lymphocytes # 0.3 L (1.0-4.8) k/uL Macrocytosis Marked A Sodium 135 L (137-145) mmol/L Creatinine 3.47 H (0.66-1.25) mg/dL Total Protein 4.9 L (6.3-8.2) g/dL Albumin 3.0 L (3.5-5.0) g/dL Assessment and Plan Plan: Shortness of breath, improved following a right-sided thoracentesis was done on 09/27/2023. A total of 1.5 L of fluid was aspirated. Fluid cytology still pending for now. The fluid is an exudate based on the protein criteria, and the pleural fluid cytology was negative for malignancy. Follow-up CAT scan of the chest showed a small residual right-sided pleural effusion. Right-sided pleural effusion postthoracentesis, exudative, pleural fluid cytology is negative. Rule out parapneumonic effusion Chronic persistent cough, CAT scan of the chest was noted, clinically improved and almost recovered End-stage renal disease, previously maintained on peritoneal dialysis, transitioned to hemodialysis, on a Saturday, , Saturday schedule. The patient underwent hemodialysis yesterday Hypotension, given a bolus of normal saline and the patient is antihypertensive medications are currently on hold, the patient received fluid bolus, blood pressure is normalized and the patient is feeling much improved on today's evalu ation, able to sit up on the chair without any major dizziness or any other symptoms. Elevated troponins, rule out an non-ST elevation FL. Coronary artery disease with recent history of PCI/stenting of the OM1 on 09/03/2023. History of hyperlipidemia. History of hypertension. History of multiple myeloma. Anemia of chronic disease. Chronic thrombocytopenia. History of BPH. History of GERD without esophagitis. Plan: Dialysis Was done yesterday Close monitoring of blood pressure, BP stable for now. Continue metoprolol Continue midodrine. Patient is on room air oxygen. CAT scan of the chest was reviewed. Small residual right-sided pleural effusion. Otherwise no other acute abnormalities. Patient is currently on room air oxygen Encourage use of incentive spirometer [facility] and congestion the patient is to be discharged home today.
[2023-10-07] MEDS ORDERED: hydrALAZINE HCL 25 MG TAB PO SCH (09:00)
== END 2023-10-06 11:21 | disposition home health service (06) | DRG 186 ==
LOC: EC 11:26 → 3SCARD 14:39
PROVIDERS: ADMIT Internal Medicine; ATTEND Internal Medicine
PROC: 5A1D70Z Performance of Urinary Filtration, Intermittent, Less than 6 Hours Per Day (ICD-10-PCS; principal; 2023-09-25)
PROC: 0W993ZZ Drainage of Right Pleural Cavity, Percutaneous Approach (ICD-10-PCS; 2023-09-27)
DX: J90 Pleural effusion, not elsewhere classified (principal); G93.41 Metabolic encephalopathy; N18.6 End stage renal disease; C90.00 Multiple myeloma not having achieved remission; E87.1 Hypo-osmolality and hyponatremia; I13.2 Hypertensive heart and chronic kidney disease with heart failure and with stage 5 chronic kidney disease, or end stage renal disease; W19.XXXA Unspecified fall, initial encounter; Y92.019 Unspecified place in single-family (private) house as the place of occurrence of the external cause; Z99.2 Dependence on renal dialysis; I25.10 Atherosclerotic heart disease of native coronary artery without angina pectoris; E83.89 Other disorders of mineral metabolism; E78.5 Hyperlipidemia, unspecified; K21.9 Gastro-esophageal reflux disease without esophagitis; M19.90 Unspecified osteoarthritis, unspecified site; W18.30XA Fall on same level, unspecified, initial encounter; R13.10 Dysphagia, unspecified; N40.0 Benign prostatic hyperplasia without lower urinary tract symptoms; D63.1 Anemia in chronic kidney disease; I95.9 Hypotension, unspecified; I65.23 Occlusion and stenosis of bilateral carotid arteries; E83.51 Hypocalcemia; I50.9 Heart failure, unspecified; D53.9 Nutritional anemia, unspecified; D69.6 Thrombocytopenia, unspecified; K59.00 Constipation, unspecified; R79.89 Other specified abnormal findings of blood chemistry; I44.0 Atrioventricular block, first degree; E83.42 Hypomagnesemia; G62.9 Polyneuropathy, unspecified; Z95.5 Presence of coronary angioplasty implant and graft; Z79.899 Other long term (current) drug therapy; Z79.82 Long term (current) use of aspirin; Z79.02 Long term (current) use of antithrombotics/antiplatelets; Z79.60 Long term (current) use of unspecified immunomodulators and immunosuppressants
CPT/HCPCS: 36415; 70450; 70551; 71045; 71046; 71250; 74019; 76604; 80048; 80053; 80061; 81001; 82140; 82728; 82945; 83036; 83540; 83550; 83605; 83615; 83735; 84157; 84484; 85025; 85610; 85730; 87070; 87102; 87116; 87205; 87206; 87496; 87498; 87502; 87529; 87634; 87635; 87636; 87798; 88108; 88305; 89050; 90935; 93005; 93306; 93880; 94640; 94760; 96372; 99285

== ENCOUNTER 2023-10-18 06:14 | Day surgery (SDC) | payer MEDICARE ==
[2023-10-16 17:25] VITALS: BMI 27.8
[~2023-10-18 06:14] MED LIST changes: +HEPARIN SODIUM,PORCINE 5,000 UNIT/ML 1 ML VIAL SQ PRN; +LACTATED RINGERS 1,000 ML IV SCH; -fentaNYL (PF) 50 MCG/ML 2 ML AMP IV PRN
[2023-10-18] MEDS: IV FLUID CONTINUATION 500 ML IV ONE (06:54)
[2023-10-18 06:57] VITALS: TEMP 97.1
[2023-10-18] MEDS ORDERED: HYDROmorphone 0.5 MG/0.5 ML SYRINGE IVP PRN (07:00)
[2023-10-18] MEDS ORDERED: fentaNYL (PF) 50 MCG/ML 2 ML AMP IV PRN (07:00)
[2023-10-18] MEDS: ACETAMINOPHEN TAB 500 MG TAB PO PRN (07:15)
[2023-10-18] MEDS: ONDANSETRON 4 MG/2 ML VIAL IVP ONE (07:15)
[2023-10-18] MEDS: DEXAMETHASONE SOD PHOSPHATE 4 MG/ML 1 ML VIAL IV ONE (07:15)
[2023-10-18] MEDS: BUPIVACAINE (PF) 0.25% 30 ML VIAL SQ ONE ×3 (07:17→07:45)
--- NOTE | 2023-10-18 07:28 | P.GSHP ---
History of Present Illness H&P Date: 10/18/23 Chief Complaint: Renal failure 77-year-old male here today for peritoneal dialysis catheter removal. This was placed in May of this year. Patient has had relatively poor function and difficulty utilizing catheter at home. He has had some fluid buildup. He has switched over to hemodialysis. Past Medical History Past Medical History: Cancer, Dialysis, GERD/Reflux, Hyperlipidemia, Hypertension, Osteoarthritis (OA), Prostate Disorder, Renal Disease Additional Past Medical History / Comment(s): pt admitted [facility] 09-24-23-thru 10-06-23 gneralized weakness,fall,rt pleural effusion,multiple myeloma, enlarged prostate, kidney stones, diverticulosis, hiatal hernia, hemodialysis august-October 2016, CAPD since October 2016-CURRENTLY ON HEMODIALYSIS-NEW PD CATHETER failed and continuing hemodialysis [facility] for 3.5Hrs, orthostatic hypotension, neuropathy, leaky mitral valve/weak left ventricle of heart, pt is on oral CHEMO Revlimid Saturday and -last dose September.. History of Any Multi-Drug Resistant Organisms: None Reported Past Surgical History: Heart Catheterization, Heart Catheterization With Stent Additional Past Surgical History / Comment(s): lithotripsy/laser, fatty tumor removed from right chest, colonoscopy, PERMA cath rt upper chest- removed 2016, hemodialysis cath august-October 27, bilateral cataracts removed, CAPD cath adjustment within two weeks of first insertion in 2016 Past Anesthesia/Blood Transfusion Reactions: No Reported Reaction Additional Past Anesthesia/Blood Transfusion Reaction / Comment(s): previous blood transfusion without any reactions Date of Last Stent Placement:: 09/03/23 Smoking Status: Never smoker - Past Family History Sister(s) Family Medical History: Cancer Father Family Medical History: Cancer, Deep Vein Thrombosis (DVT) Mother Family Medical History: Dementia Additional Family Medical History / Comment(s): from alzheimer's Brother(s) Family Medical History: Diabetes Mellitus Medications and Allergies Home Medications Medication Instructions Recorded Confirmed Type Omeprazole [PriLOSEC] 20 mg PO QAM 08/18/16 10/18/23 History valACYclovir HCL [Valtrex] 500 mg PO DAILY 08/18/16 10/18/23 History Finasteride [Proscar] 5 mg PO HS 03/30/18 10/18/23 History Metoprolol Tartrate [Lopressor] 25 mg PO BID 03/30/18 10/18/23 History Pregabalin [Lyrica] 75 mg PO BID 03/30/18 10/18/23 History Pro-Renal + Vit D (Unknown) 1 tab PO DAILY 03/30/18 10/18/23 History Ergocalciferol (Vitamin D2) 1,250 mcg PO SA 05/21/23 10/18/23 History [Drisdol (50,000 Iu)] Magnesium Oxide [Mag-Ox] 400 mg PO DAILY 05/21/23 10/18/23 History Micera 50mcg/0.3ml 50 mcg INJ Q14D 05/21/23 10/18/23 History Sodium Bicarbonate Tab 650 mg PO BID 05/21/23 10/18/23 History Tamsulosin [Flomax] 0.4 mg PO HS 05/21/23 10/18/23 History Cyanocobalamin (Vitamin B-12) 1,000 mcg PO DAILY 06/18/23 10/18/23 History [Vitamin B-12] Aspirin [Adult Low Dose Aspirin EC] 81 mg PO DAILY 06/24/23 10/18/23 History Clopidogrel [Plavix] 75 mg PO DAILY #90 tab 09/04/23 10/18/23 Rx Nitroglycerin Sl Tabs [Nitrostat] 0.4 mg SUBLINGUAL Q5M PRN #25 tab 09/04/23 10/18/23 Rx Calcium Carbonate [Tums] 1,000 mg PO W/BRKFST 09/24/23 10/18/23 History Calcium Carbonate [Tums] 3,000 mg PO QID 09/24/23 10/18/23 History Rosuvastatin [Crestor] 20 mg PO HS 09/24/23 10/18/23 History guaiFENesin-Coden 100-10MG/5ML 10 ml PO Q6HR PRN #120 ml 10/06/23 10/18/23 Rx [Robitussin AC] Loperamide [Imodium] 2 mg PO DAILY PRN 10/16/23 10/18/23 History Midodrine [ProAmatine] 10 mg PO TID PRN 10/16/23 10/18/23 History hydrALAZINE HCL 25 mg PO BID PRN 10/16/23 10/18/23 History Lenalidomide [Revlimid] 2.5 mg PO DIRECTED 10/17/23 10/18/23 History Allergies Allergy/AdvReac Type Severity Reaction Status Date / Time No Known Allergies Allergy Verified 10/18/23 06:47 Surgical - Exam Vital Signs Temp Pulse Resp BP Pulse Ox 97.1 F L 83 18 156/75 94 L 10/18/23 06:55 10/18/23 06:55 10/18/23 06:55 10/18/23 06:55 10/18/23 06:55 Physical exam: General: Well-developed, well-nourished HEENT: Normocephalic, sclerae nonicteric Abdomen: Nontender, nondistended Extremities: No edema Neuro: Alert and oriented Assessment and Plan (1) Peritoneal dialysis catheter dysfunction Narrative/Plan: Will proceed with peritoneal dialysis catheter removal at this time. Current Visit: No Status: Acute Code(s): T85.611A - BREAKDOWN OF INTRAPERITONEAL DIALYSIS CATHETER, INIT SNOMED Code(s): 018231950
[2023-10-18] MEDS ORDERED: PROPOFOL 10 MG/ML 20 ML VIAL IV ONE (07:29)
[2023-10-18] MEDS ORDERED: PHENYLEPHRINE 10 MG/ML VIAL ONE (07:29)
[2023-10-18] MEDS ORDERED: MIDAZOLAM 2 MG/2 ML VIAL ONE (07:29)
[2023-10-18] MEDS ORDERED: KETAMINE HCL IN 0.9 % NACL 50 MG/5 ML SYRINGE ONE (07:29)
[2023-10-18 07:40] LABS: Anisocytosis Slight; Basophils % (A) 0 %; Eosinophils # (A) 0.1 k/uL (0-0.7); Eosinophils % (A) 2 %; HCT 27.2 % (39.0-53.0); HGB 9.3 gm/dL (13.0-17.5); Lymphocytes # (A) 0.2 k/uL (1.0-4.8); Lymphocytes % (A) 4 %; MCH 36.1 pg (25.0-35.0); MCHC 34.1 g/dL (31.0-37.0); MCV 105.8 fL (80.0-100.0); Macrocytosis Moderate; Mean Platelet Volume 9.3; Monocytes # (A) 0.3 k/uL (0-1.0); Monocytes % (A) 7 %; Neutrophils # (A) 4.2 k/uL (1.3-7.7); Neutrophils % (A) 85 %; Platelet Count 112 k/uL (150-450); RBC 2.57 m/uL (4.30-5.90); RDW 17.8 % (11.5-15.5)
[2023-10-18] MEDS ORDERED: NALOXONE 0.4 MG/ML 1 ML VIAL IV PRN (08:13)
[2023-10-18] MEDS ORDERED: HYDROcodone/APAP 5-325MG 1 EACH TAB PO PRN (08:13)
--- NOTE | 2023-10-18 08:20 | P.OP ---
Date of Procedure: 10/18/23 Procedure(s) Performed: PREOPERATIVE DIAGNOSIS: Renal failure POSTOPERATIVE DIAGNOSIS: Same PROCEDURE: PD cath removal SURGEON: Tomasz EBL: 2 mL ANESTHESIA: Sedation and local COMPLICATIONS: None OPERATIVE PROCEDURE: Patient was placed in the supine position. The abdomen was prepped and draped in usual sterile fashion. The previous paramedian incision was re-incised after localizing the skin. The subcutaneous tissues were divided using electrocautery. Blunt dissection around the cuff that was present at the fascia and peritoneum took place. The cuff was fully mobilized. The catheter was removed from the perineal cavity. The outer cuff was dissected from the saphenous fascia using electrocautery. The catheter was cut on the other side of that cuff and the catheter was removed. The fascial defect was closed using a single [id number] 0 Vicryl stitch. The subcutaneous tissues were closed using 3-0 Vicryl sutures and the skin using 4-0 Monocryl sutures. Skin glue and sterile dressings were applied. DISPOSITION: Stable to recovery room
[2023-10-18 09:29] VITALS: BP 114/63; PULSE 72; RESP 16
== END 2023-10-18 09:38 | disposition home or self-care (01) ==
LOC: OR 06:14
PROVIDERS: ATTEND Surgery
DX: T85.691A Other mechanical complication of intraperitoneal dialysis catheter, initial encounter (principal); I12.0 Hypertensive chronic kidney disease with stage 5 chronic kidney disease or end stage renal disease; N18.9 Chronic kidney disease, unspecified; E78.5 Hyperlipidemia, unspecified; K21.9 Gastro-esophageal reflux disease without esophagitis; M19.90 Unspecified osteoarthritis, unspecified site; Z79.02 Long term (current) use of antithrombotics/antiplatelets; Z99.2 Dependence on renal dialysis; Y83.8 Other surgical procedures as the cause of abnormal reaction of the patient, or of later complication, without mention of misadventure at the time of the procedure
CPT/HCPCS: 84132; 85025; 49422; J2250; J1100; J0690; J2405; J2704; J2371; J0665

== ENCOUNTER 2023-10-18 23:06 | Inpatient (IN) | payer MEDICARE ==
[2023-10-18 23:44] LABS: ALT 14 U/L (4-49); AST 60 U/L (17-59); African American GFR (CKD) 14 (>60 ml/min/1.73 sqM); Alkaline Phosphatase 87 U/L (38-126); Anion Gap 7 mmol/L; Blood Urea Nitrogen 42 mg/dL (9-20); Calcium 8.5 mg/dL (8.4-10.2); Carbon Dioxide 29 mmol/L (22-30); Chloride 98 mmol/L (98-107); Glucose 81 mg/dL (74-99); Non-African American GFR(CKD) 12 (>60 ml/min/1.73 sqM); Potassium 3.6 mmol/L (3.5-5.1); Sodium 134 mmol/L (137-145); Total Bilirubin 0.7 mg/dL (0.2-1.3); Total Protein 4.7 g/dL (6.3-8.2)
[2023-10-18 23:48] LABS: Anisocytosis Slight; Basophils % (A) 0 %; Eosinophils % (A) 0 %; HCT 24.6 % (39.0-53.0); HGB 8.2 gm/dL (13.0-17.5); Lymphocytes # (A) 0.4 k/uL (1.0-4.8); Lymphocytes % (A) 7 %; MCH 36.1 pg (25.0-35.0); MCHC 33.5 g/dL (31.0-37.0); Macrocytosis Marked; Mean Platelet Volume 9.6; Monocytes # (A) 0.5 k/uL (0-1.0); Monocytes % (A) 9 %; Neutrophils # (A) 4.3 k/uL (1.3-7.7); Neutrophils % (A) 81 %; Platelet Count 109 k/uL (150-450); RBC 2.28 m/uL (4.30-5.90); RDW 17.9 % (11.5-15.5); WBC 5.3 k/uL (3.8-10.6)
[2023-10-18 23:53] LABS: NT-Pro-B-Type Natriuretic Pept 24200 pg/mL
[2023-10-18 23:54] LABS: MCV 107.6 fL (80.0-100.0)
[2023-10-18 23:55] LABS: Partial Thromboplastin Time 21.4 sec (22.0-30.0)
--- NOTE | 2023-10-19 00:09 | XR ---
EXAMINATION TYPE: XR chest 2V DATE OF EXAM: 10/19/2023 COMPARISON: Prior chest CT September 30, 2023 HISTORY: Syncope TECHNIQUE: Frontal and lateral views of the chest are obtained. FINDINGS: There is stable left internal jugular large bore dialysis catheter noted. Moderate size ri ght pleural effusion is slightly larger versus prior with associated right basilar opacity favoring c ompressive atelectasis. Left lung is clear. Mild cardiomegaly is redemonstrated. Osseous structures a re demineralized. IMPRESSION: Mild cardiomegaly with slightly larger moderate to large size right pleural effusion and associated right basilar opacity favoring compressive atelectasis. Left lung remains clear.
--- NOTE | 2023-10-19 01:21 | ED ---
General Adult HPI - General Chief complaint: Syncope Stated complaint: SYNCOPE Time Seen by Provider: 10/18/23 23:10 Source: EMS Mode of arrival: EMS Limitations: no limitations - History of Present Illness Initial comments: 77-year-old male who presents emergency department after he passed out at home. patient is on dialysis. He had a peritoneal dialysis catheter which was removed yesterday by Dr. Tolbert. He has been doing dialysis through his chest wall catheter. Patient goes Saturday, and Saturday. States that after his procedure today he was feeling well. He went home at 8. Patient had gotten up to go to the bathroom and felt very lightheaded in the bathroom. He ended up slipping off the toilet. called EMS. He was found to be hypoxic in the 80s. Patient does not wear oxygen. He denies any chest pain. Denies shortness of breath but admits to weakness. No lateralizing symptoms. His abdominal pain. Patient was found of a blood pressure of 60/30. Fevers. No other alleviating, precipitating modifying factors - Related Data Home Medications Medication Instructions Recorded Confirmed Omeprazole [PriLOSEC] 20 mg PO DAILY 08/18/16 10/19/23 valACYclovir HCL [Valtrex] 500 mg PO DAILY 08/18/16 10/19/23 Finasteride [Proscar] 5 mg PO HS 03/30/18 10/19/23 Pregabalin [Lyrica] 75 mg PO BID 03/30/18 10/19/23 Pro-Renal + Vit D (Unknown) 1 tab PO DAILY 03/30/18 10/19/23 Ergocalciferol (Vitamin D2) 1,250 mcg PO SA 05/21/23 10/19/23 [Drisdol (50,000 Iu)] Magnesium Oxide [Mag-Ox] 400 mg PO DAILY 05/21/23 10/19/23 Micera 50mcg/0.3ml 50 mcg INJ Q14D 05/21/23 10/19/23 Sodium Bicarbonate Tab 650 mg PO BID 05/21/23 10/19/23 Tamsulosin [Flomax] 0.4 mg PO HS 05/21/23 10/19/23 Cyanocobalamin (Vitamin B-12) 1,000 mcg PO DAILY 06/18/23 10/19/23 [Vitamin B-12] Aspirin [Adult Low Dose Aspirin EC] 81 mg PO DAILY 06/24/23 10/19/23 Calcium Carbonate [Tums] 1,000 mg PO W/BRKFST 09/24/23 10/19/23 Calcium Carbonate [Tums] 3,000 mg PO QID 09/24/23 10/19/23 Rosuvastatin [Crestor] 20 mg PO HS 09/24/23 10/19/23 Midodrine [ProAmatine] 10 mg PO TID PRN 10/16/23 10/19/23 hydrALAZINE HCL 25 mg PO BID PRN 10/16/23 10/19/23 Previous Rx's Medication Instructions Recorded Clopidogrel [Plavix] 75 mg PO DAILY #90 tab 09/04/23 Nitroglycerin Sl Tabs [Nitrostat] 0.4 mg SUBLINGUAL Q5M PRN #25 tab 09/04/23 HYDROcodone/APAP 5-325MG [Villalba 1 tab PO Q6HR PRN 3 Days #6 tab 10/18/23 5-325] Darbepoetin Ruiz [Aranesp] 80 mcg SQ Q7D each 10/25/23 Docusate [Colace] 100 mg PO BID cap 10/25/23 Midodrine [ProAmatine] 5 mg PO AC-TID tab 10/25/23 Allergies Allergy/AdvReac Type Severity Reaction Status Date / Time No Known Allergies Allergy Verified 10/19/23 09:39 Review of Systems ROS Statement: Those systems with pertinent positive or pertinent negative responses have been documented in the HPI. ROS Other: All systems not noted in ROS Statement are negative. 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 History of Any Multi-Drug Resistant Organisms: None Reported Past Surgical History: Heart Catheterization, Heart Catheterization With Stent Additional Past Surgical History / Comment(s): lithotripsy/laser, fatty tumor removed from right chest, colonoscopy, PERMA cath rt upper chest- removed 2016, hemodialysis cath august-October 27, bilateral cataracts removed, CAPD cath adjustment within two weeks of first insertion in 2017 Past Anesthesia/Blood Transfusion Reactions: No Reported Reaction Additional Past Anesthesia/Blood Transfusion Reaction / Comment(s): previous blood transfusion without any reactions Date of Last Stent Placement:: 09/03/23 Smoking Status: Never smoker - Past Family History Sister(s) Family Medical History: Cancer Father Family Medical History: Cancer, Deep Vein Thrombosis (DVT) Mother Family Medical History: Dementia Additional Family Medical History / Comment(s): from alzheimer's Brother(s) Family Medical History: Diabetes Mellitus General Exam Limitations: no limitations General appearance: alert, in no apparent distress Head exam: Present: atraumatic, normocephalic, normal inspection Eye exam: Present: normal appearance, PERRL, EOMI. Absent: scleral icterus, conjunctival injection, periorbital swelling ENT exam: Present: normal exam, mucous membranes moist Neck exam: Present: normal inspection. Absent: tenderness, meningismus, lymphadenopathy Respiratory exam: Present: normal lung sounds bilaterally. Absent: respiratory distress, wheezes, rales, rhonchi, stridor Cardiovascular Exam: Present: regular rate, normal rhythm, normal heart sounds. Absent: systolic murmur, diastolic murmur, rubs, gallop, clicks GI/Abdominal exam: Present: soft, normal bowel sounds. Absent: distended, tend erness, guarding, rebound, rigid Extremities exam: Present: normal inspection, full ROM, normal capillary refill. Absent: tenderness, pedal edema, joint swelling, calf tenderness Back exam: Present: normal inspection Neurological exam: Present: alert, oriented X3, CN II-XII intact Psychiatric exam: Present: normal affect, normal mood Skin exam: Present: warm, dry, intact, normal color. Absent: rash Course Vital Signs 10/18/23 10/19/23 10/19/23 23:06 00:46 03:32 Temperature Pulse Rate 82 81 73 Pulse Rate [ Virtual Office Assistant ] Respiratory 18 16 17 Rate Blood Pressure 97/60 121/56 113/55 O2 Sat by Pulse 96 99 97 Oximetry 10/19/23 10/19/23 10/19/23 04:37 06:37 09:10 Temperature Pulse Rate 70 75 77 Pulse Rate [ Virtual Office Assistant ] Respiratory 15 20 18 Rate Blood Pressure 113/55 125/67 102/68 O2 Sat by Pulse 98 96 Oximetry 10/19/23 10/19/23 10/19/23 10:30 11:05 12:19 Temperature 97.6 F Pulse Rate 74 64 70 Pulse Rate [ Virtual Office Assistant ] Respiratory 17 17 16 Rate Blood Pressure 93/65 69/56 134/64 O2 Sat by Pulse 99 98 100 Oximetry 10/19/23 10/19/23 10/19/23 15:07 17:32 20:53 Temperature Pulse Rate 69 75 82 Pulse Rate [ Virtual Office Assistant ] Respiratory 14 14 14 Rate Blood Pressure 127/57 128/69 133/61 O2 Sat by Pulse 99 99 99 Oximetry 10/19/23 10/19/23 10/20/23 23:00 23:25 00:00 Temperature Pulse Rate 70 71 Pulse Rate [ 81 Virtual Office Assistant ] Respiratory 20 16 Rate Blood Pressure 145/69 136/75 O2 Sat by Pulse 95 99 Oximetry 10/20/23 10/20/23 10/20/23 01:00 02:00 03:00 Temperature Pulse Rate 67 80 70 Pulse Rate [ Virtual Office Assistant ] Respiratory 16 18 16 Rate Blood Pressure 137/66 146/68 142/87 O2 Sat by Pulse 98 96 95 Oximetry 10/20/23 10/20/23 10/20/23 04:00 05:00 06:00 Temperature Pulse Rate 80 82 76 Pulse Rate [ Virtual Office Assistant ] Respiratory 16 16 16 Rate Blood Pressure 144/66 142/68 O2 Sat by Pulse 98 96 96 Oximetry 10/20/23 10/20/23 10/20/23 07:34 09:40 18:54 Temperature Pulse Rate 68 82 82 Pulse Rate [ Virtual Office Assistant ] Respiratory 16 16 16 Rate Blood Pressure 123/64 146/82 151/98 O2 Sat by Pulse 100 99 99 Oximetry 10/20/23 10/20/23 10/21/23 21:15 22:40 01:16 Temperature Pulse Rate 90 76 71 Pulse Rate [ Virtual Office Assistant ] Respiratory 16 18 19 Rate Blood Pressure 123/68 111/58 118/62 O2 Sat by Pulse 97 100 99 Oximetry Medical Decision Making - Medical Decision Making Was pt. sent in by a medical professional or institution (, PA, SHINGLER, urgent care, hospital, or senior care...) When possible be specific @ -No Did you speak to anyone other than the patient for history (EMS, parent, family, police, friend...)? What history was obtained from this source @ -Spoke with EMS for history Did you review nursing and triage notes (agree or disagree)? Why? @ -I reviewed and agree with nursing and triage notes Were old charts reviewed (outside hosp., previous admission, EMS record, old EKG, old radiological studies, urgent care reports/EKG's, senior care records)? Report findings @ -I reviewed the operative note from Dr. Tolbert from yesterday Differential Diagnosis (chest pain, altered mental status, abdominal pain women, abdominal pain men, vaginal bleeding, weakness, fever, dyspnea, syncope, headache, dizziness, GI bleed, back pain, seizure, CVA, palpatations, mental health, musculoskeletal)? @ -Differential Syncope: Valvular disease, hypertrophic cardiomyopathy, pulmonary embolism, tamponade, tachycardia, bradycardia, MT, hypovolemia, hemorrhage, dissection, anemia, intracranial hemorrhage, seizure, hypoglycemia, carbon monoxide poisoning, this is not meant to be an all-inclusive list. EKG interpreted by me (3pts min.). @ -Yes and demonstrates sinus rhythm with a rate of 83. [place] interval 196. QRS 93. QTc of 437. No acute ST segment elevations or depressions X-rays interpreted by me (1pt min.). @ -Yes and demonstrates pleural effusion CT interpreted by me (1pt min.). @ -None done U/S interpreted by me (1pt. min.). @ -None done What testing was considered but not performed or refused? (CT, X-rays, U/S, labs)? Why? @ -None What meds were considered but not given or refused? Why? @ -None Did you discuss the management of the patient with other professionals (professionals i.e. Dr., PA, SHINGLER, lab, RT, psych nurse, clinical social work therapist, manager respiratory, teacher, staff command and control officer, bottle caser)? Give summary @ -Spoke with Dr. Lawrence who will admit the patient Was smoking cessation discussed for >3mins.? @ -No Was critical care preformed (if so, how long)? @ -No Were there social determinants of health that impacted care today? How? (Homelessness, low income, unemployed, alcoholism, drug addiction, transportation, low edu. Level, literacy, decrease access to med. care, fpc, rehab)? @ -No Was there de-escalation of care discussed even if they declined (Discuss DNR or withdrawal of care, Hospice)? DNR status @ -No What co-morbidities impacted this encounter? (DM, HTN, Smoking, COPD, CAD, Cancer, CVA, ARF, Chemo, Hep., AIDS, mental health diagnosis, sleep apnea, morbid obesity)? @ -End-stage renal disease on hemodialysis, chronic anemia Was patient admitted / discharged? Hospital course, mention meds given and route, prescriptions, significant lab abnormalities, going to OR and other pertinent info. @ -Upon arrival patient seen and evaluated in trauma 2. Thorough history and physical exam was performed. IV was established. Laboratory studies are conducted. Chest x-ray was performed. Patient is hypoxic. He does demonstrate signs of fluid overload. Patient will be admitted for dialysis. Spoke with Dr. Lawrence for admission Undiagnosed new problem with uncertain prognosis? @ -No Drug Therapy requiring intensive monitoring for toxicity (Heparin, Nitro, Insulin, Cardizem)? @ -No Were any procedures done? @ -No Diagnosis/symptom? @ -Acute syncope, acute hypoxic respiratory failure, pulmonary edema, pleural effusion, end-stage renal disease on hemodialysis Acute, or Chronic, or Acute on Chronic? @ -Acute Uncomplicated (without systemic symptoms) or Complicated (systemic symptoms)? @ -Complicated Side effects of treatment? @ -No Exacerbation, Progression, or Severe Exacerbation? @ -No Poses a threat to life or bodily function? How? (Chest pain, USA, MT, pneumonia, PE, COPD, DKA, ARF, appy, cholecystitis, CVA, Diverticulitis, Homicidal, Suicidal, threat to staff... and all critical care pts) @ -Yes as patient is hypoxic and hypotensive - Lab Data Result diagrams: 10/24/23 09:22 10/24/23 09:22 Lab Results 10/18/23 10/18/23 10/18/23 Range/Units 23:26 23:26 23:26 WBC 5.3 (3.8-10.6) k/uL RBC 2.28 L (4.30-5.90) m/uL Hgb 8.2 L (13.0-17.5) gm/dL Hct 24.6 L (39.0-53.0) % MCV 107.6 H (80.0-100.0) fL MCH 36.1 H (25.0-35.0) pg MCHC 33.5 (31.0-37.0) g/dL RDW 17.9 H (11.5-15.5) % Plt Count 109 L (150-450) k/uL MPV 9.6 Neutrophils % 81 % Lymphocytes % 7 % Monocytes % 9 % Eosinophils % 0 % Basophils % 0 % Neutrophils # 4.3 (1.3-7.7) k/uL Lymphocytes # 0.4 L (1.0-4.8) k/uL Monocytes # 0.5 (0-1.0) k/uL Eosinophils # 0.0 (0-0.7) k/uL Basophils # 0.0 (0-0.2) k/uL Manual Slide Review Anisocytosis Slight Macrocytosis Marked A PT 11.0 (10.0-12.5) sec INR 1.0 (<1.2) APTT 21.4 L (22.0-30.0) sec Sodium 134 L (137-145) mmol/L Potassium 3.6 (3.5-5.1) mmol/L Chloride 98 (98-107) mmol/L Carbon Dioxide 29 (22-30) mmol/L Anion Gap 7 mmol/L BUN 42 H (9-20) mg/dL Creatinine 4.48 H (0.66-1.25) mg/dL Est GFR (CKD-EPI)AfAm 14 (>60 ml/min/1.73 sqM) Est GFR (CKD-EPI)NonAf 12 (>60 ml/min/1.73 sqM) Glucose 81 (74-99) mg/dL POC Glucose (mg/dL) (70-110) mg/dL POC Glu Shuttle Route Vehicle Operator ID Calcium 8.5 (8.4-10.2) mg/dL Phosphorus (2.5-4.5) mg/dL Iron (65-175) UG/DL TIBC (228-460) UG/DL % Saturation (15.00-50.00) Transferrin (204.0-354.0) mg/dL Ferritin (22.0-322.0) ng/mL Total Bilirubin 0.7 (0.2-1.3) mg/dL AST 60 H (17-59) U/L ALT 14 (4-49) U/L Alkaline Phosphatase 87 (38-126) U/L Troponin I (0.000-0.034) ng/mL NT-Pro-B Natriuret Pep 52933 pg/mL Total Protein 4.7 L (6.3-8.2) g/dL Albumin 3.0 L (3.5-5.0) g/dL Hep Bs Antigen (Nonreactive) Hep Bs Antibody (Negative) Hep Bs Antibody, Quant mIU/mL 10/18/23 10/18/23 10/19/23 Range/Units 23:26 23:26 04:02 WBC (3.8-10.6) k/uL RBC (4.30-5.90) m/uL Hgb (13.0-17.5) gm/dL Hct (39.0-53.0) % MCV (80.0-100.0) fL MCH (25.0-35.0) pg MCHC (31.0-37.0) g/dL RDW (11.5-15.5) % Plt Count (150-450) k/uL MPV Neutrophils % % Lymphocytes % % Monocytes % % Eosinophils % % Basophils % % Neutrophils # (1.3-7.7) k/uL Lymphocytes # (1.0-4.8) k/uL Monocytes # (0-1.0) k/uL Eosinophils # (0-0.7) k/uL Basophils # (0-0.2) k/uL Manual Slide Review Anisocytosis Macrocytosis PT (10.0-12.5) sec INR (<1.2) APTT (22.0-30.0) sec Sodium (137-145) mmol/L Potassium (3.5-5.1) mmol/L Chloride (98-107) mmol/L Carbon Dioxide (22-30) mmol/L Anion Gap mmol/L BUN (9-20) mg/dL Creatinine (0.66-1.25) mg/dL Est GFR (CKD-EPI)AfAm (>60 ml/min/1.73 sqM) Est GFR (CKD-EPI)NonAf (>60 ml/min/1.73 sqM) Glucose (74-99) mg/dL POC Glucose (mg/dL) (70-110) mg/dL POC Glu Shuttle Route Vehicle Operator ID Calcium (8.4-10.2) mg/dL Phosphorus (2.5-4.5) mg/dL Iron (65-175) UG/DL TIBC (228-460) UG/DL % Saturation (15.00-50.00) Transferrin (204.0-354.0) mg/dL Ferritin (22.0-322.0) ng/mL Total Bilirubin (0.2-1.3) mg/dL AST (17-59) U/L ALT (4-49) U/L Alkaline Phosphatase (38-126) U/L Troponin I 0.084 H* 0.132 H* (0.000-0.034) ng/mL NT-Pro-B Natriuret Pep pg/mL Total Protein (6.3-8.2) g/dL Albumin (3.5-5.0) g/dL Hep Bs Antigen Nonreactive (Nonreactive) Hep Bs Antibody (Negative) Hep Bs Antibody, Quant 3.5 mIU/mL 10/19/23 10/19/23 10/20/23 Range/Units 07:57 07:57 07:56 WBC 3.2 L (3.8-10.6) k/uL RBC 2.17 L (4.30-5.90) m/uL Hgb 7.7 L (13.0-17.5) gm/dL Hct 23.7 L (39.0-53.0) % MCV 109.3 H (80.0-100.0) fL MCH 35.7 H (25.0-35.0) pg MCHC 32.7 (31.0-37.0) g/dL RDW 18.6 H (11.5-15.5) % Plt Count 89 L (150-450) k/uL MPV 9.2 Neutrophils % 68 % Lymphocytes % 13 % Monocytes % 11 % Eosinophils % 4 % Basophils % 0 % Neutrophils # 2.2 (1.3-7.7) k/uL Lymphocytes # 0.4 L (1.0-4.8) k/uL Monocytes # 0.3 (0-1.0) k/uL Eosinophils # 0.1 (0-0.7) k/uL Basophils # 0.0 (0-0.2) k/uL Manual Slide Review Performed Anisocytosis Slight Macrocytosis Marked A PT (10.0-12.5) sec INR (<1.2) APTT (22.0-30.0) sec Sodium (137-145) mmol/L Potassium (3.5-5.1) mmol/L Chloride (98-107) mmol/L Carbon Dioxide (22-30) mmol/L Anion Gap mmol/L BUN (9-20) mg/dL Creatinine (0.66-1.25) mg/dL Est GFR (CKD-EPI)AfAm (>60 ml/min/1.73 sqM) Est GFR (CKD-EPI)NonAf (>60 ml/min/1.73 sqM) Glucose (74-99) mg/dL POC Glucose (mg/dL) (70-110) mg/dL POC Glu Shuttle Route Vehicle Operator ID Calcium (8.4-10.2) mg/dL Phosphorus (2.5-4.5) mg/dL Iron 39 L (65-175) UG/DL TIBC 203 L (228-460) UG/DL % Saturation 19.21 (15.00-50.00) Transferrin 145.0 L (204.0-354.0) mg/dL Ferritin 1482.0 H (22.0-322.0) ng/mL Total Bilirubin (0.2-1.3) mg/dL AST (17-59) U/L ALT (4-49) U/L Alkaline Phosphatase (38-126) U/L Troponin I 0.168 H* (0.000-0.034) ng/mL NT-Pro-B Natriuret Pep pg/mL Total Protein (6.3-8.2) g/dL Albumin (3.5-5.0) g/dL Hep Bs Antigen (Nonreactive) Hep Bs Antibody (Negative) Hep Bs Antibody, Quant mIU/mL 10/20/23 10/21/23 10/21/23 Range/Units 07:56 05:43 10:39 WBC 3.9 (3.8-10.6) k/uL RBC 2.03 L (4.30-5.90) m/uL Hgb 7.4 L (13.0-17.5) gm/dL Hct 22.5 L (39.0-53.0) % MCV 110.8 H (80.0-100.0) fL MCH 36.3 H (25.0-35.0) pg MCHC 32.7 (31.0-37.0) g/dL RDW 18.5 H (11.5-15.5) % Plt Count 102 L (150-450) k/uL MPV 9.1 Neutrophils % 79 % Lymphocytes % 5 % Monocytes % 10 % Eosinophils % 1 % Basophils % 0 % Neutrophils # 3.1 (1.3-7.7) k/uL Lymphocytes # 0.2 L (1.0-4.8) k/uL Monocytes # 0.4 (0-1.0) k/uL Eosinophils # 0.1 (0-0.7) k/uL Basophils # 0.0 (0-0.2) k/uL Manual Slide Review Anisocytosis Slight Macrocytosis Marked A PT (10.0-12.5) sec INR (<1.2) APTT (22.0-30.0) sec Sodium 135 L (137-145) mmol/L Potassium 3.7 (3.5-5.1) mmol/L Chloride 101 (98-107) mmol/L Carbon Dioxide 32 H (22-30) mmol/L Anion Gap 2 mmol/L BUN 26 H (9-20) mg/dL Creatinine 4.04 H (0.66-1.25) mg/dL Est GFR (CKD-EPI)AfAm 16 (>60 ml/min/1.73 sqM) Est GFR (CKD-EPI)NonAf 14 (>60 ml/min/1.73 sqM) Glucose 81 (74-99) mg/dL POC Glucose (mg/dL) 100 (70-110) mg/dL POC Glu Shuttle Route Vehicle Operator ID Jill Santos Calcium 8.5 (8.4-10.2) mg/dL Phosphorus 2.8 (2.5-4.5) mg/dL Iron (65-175) UG/DL TIBC (228-460) UG/DL % Saturation (15.00-50.00) Transferrin (204.0-354.0) mg/dL Ferritin (22.0-322.0) ng/mL Total Bilirubin (0.2-1.3) mg/dL AST (17-59) U/L ALT (4-49) U/L Alkaline Phosphatase (38-126) U/L Troponin I (0.000-0.034) ng/mL NT-Pro-B Natriuret Pep pg/mL Total Protein (6.3-8.2) g/dL Albumin (3.5-5.0) g/dL Hep Bs Antigen (Nonreactive) Hep Bs Antibody (Negative) Hep Bs Antibody, Quant mIU/mL 10/21/23 10/21/23 Range/Units 10:39 11:20 WBC (3.8-10.6) k/uL RBC (4.30-5.90) m/uL Hgb (13.0-17.5) gm/dL Hct (39.0-53.0) % MCV (80.0-100.0) fL MCH (25.0-35.0) pg MCHC (31.0-37.0) g/dL RDW (11.5-15.5) % Plt Count (150-450) k/uL MPV Neutrophils % % Lymphocytes % % Monocytes % % Eosinophils % % Basophils % % Neutrophils # (1.3-7.7) k/uL Lymphocytes # (1.0-4.8) k/uL Monocytes # (0-1.0) k/uL Eosinophils # (0-0.7) k/uL Basophils # (0-0.2) k/uL Manual Slide Review Anisocytosis Macrocytosis PT (10.0-12.5) sec INR (<1.2) APTT (22.0-30.0) sec Sodium 130 L (137-145) mmol/L Potassium 3.7 (3.5-5.1) mmol/L Chloride 97 L (98-107) mmol/L Carbon Dioxide 28 (22-30) mmol/L Anion Gap 5 mmol/L BUN 39 H (9-20) mg/dL Creatinine 5.42 H (0.66-1.25) mg/dL Est GFR (CKD-EPI)AfAm 11 (>60 ml/min/1.73 sqM) Est GFR (CKD-EPI)NonAf 10 (>60 ml/min/1.73 sqM) Glucose 151 H (74-99) mg/dL POC Glucose (mg/dL) 149 H (70-110) mg/dL POC Glu Shuttle Route Vehicle Operator ID Mimi Kincaid Calcium 8.5 (8.4-10.2) mg/dL Phosphorus (2.5-4.5) mg/dL Iron (65-175) UG/DL TIBC (228-460) UG/DL % Saturation (15.00-50.00) Transferrin (204.0-354.0) mg/dL Ferritin (22.0-322.0) ng/mL Total Bilirubin 0.8 (0.2-1.3) mg/dL AST 153 H (17-59) U/L ALT 6 (4-49) U/L Alkaline Phosphatase 79 (38-126) U/L Troponin I (0.000-0.034) ng/mL NT-Pro-B Natriuret Pep pg/mL Total Protein 4.2 L (6.3-8.2) g/dL Albumin 2.6 L (3.5-5.0) g/dL Hep Bs Antigen (Nonreactive) Hep Bs Antibody (Negative) Hep Bs Antibody, Quant mIU/mL Disposition Clinical Impression: ESRD (end stage renal disease) on dialysis, Syncope, Hypotension, Hypoxia, Pleural effusion Disposition: ADMITTED IP TO THIS [facility] Condition: Stable Is patient prescribed a controlled substance at d/c from ED?: No Time of Disposition: 02:08 Decision to Admit Reason: Admit from EC Decision Date: 10/19/23 Decision Time: 02:08
[2023-10-19] MEDS ORDERED: NALOXONE 0.4 MG/ML 1 ML VIAL IV PRN (02:08)
--- NOTE | 2023-10-19 10:45 | P.CRDCN ---
History of Present Illness Consult date: 10/19/23 Chief complaint: Syncope History of present illness: The patient is a 77-year-old gentleman who is known to our service from before with a past medical history significant for CAD with prior stenting of OM as well as cardiomyopathy with a EF around 45% and also end-stage renal disease on dialysis as well as history of orthostatic hypotension and multiple myeloma and multiple comorbid conditions was admitted to the emergency department after he lost his consciousness at home. The patient was in his usual state of health till yesterday when he went to the hospital and had his dialysis catheter taken out. It was peritoneal dialysis catheter. Currently he is on hemodialysis and the last hemodialysis was performed on . He was in his usual state of health till yesterday when he walked to the bathroom and subsequently his ivania ound him on the floor after he passed out. No prodromal symptoms. She checked his pressure and the pressure was low and also she checked his pulse oxygen saturation and that came in to be low. Ambulance was called and the patient was brought to the hospital. He continues to be having marginally low blood pressure. No chest pain or chest discomfort. He underwent further evaluation including an EKG showed sinus mechanism with nonspecific changes and chest x-ray showed moderate to large right pleural effusion but he is known to have pleural effusion before and he underwent pleurocentesis in the past. At home and the only medication has been taken which potential lowering the pressure is metoprolol. Beside that he was receiving all his medications including dual antiplatelet therapy. The examination is remarkable for regular rhythm with a distant heart sounds and diminished breathing sounds on the right side and no edema was noted in the lower extremities Assessment Orthostatic hypotension Syncope secondary to the above Marginally low blood pressure CAD as described above End-stage renal disease on dialysis Moderate to large right pleural effusion Multiple comorbid conditions Plan Continue the current medical regimen Start the patient on midodrine Restart the patient back on dual antiplatelet therapy Avoid restarting the patient on metoprolol at this point Follow-up with the patient Past Medical History Past Medical History: Cancer, Dialysis, GERD/Reflux, Hyperlipidemia, Hypertension, Osteoarthritis (OA), Prostate Disorder, Renal Disease Additional Past Medical History / Comment(s): multiple myeloma, enlarged prostate, kidney stones, diverticulosis, hiatal hernia, hemodialysis august-October 2016, CAPD since October 2016-CURRENTLY ON HEMODIALYSIS WAITING FOR NEW PD CATHETER, orthostatic hypotension, neuropathy, leaky mitral valve/weak left ventricle of heart, pt is on oral CHEMO Revlamid Saturday and . History of Any Multi-Drug Resistant Organisms: None Reported Past Surgical History: Heart Catheterization, Heart Catheterization With Stent Additional Past Surgical History / Comment(s): lithotripsy/laser, fatty tumor removed from right chest, colonoscopy, PERMA cath rt upper chest- removed 2016, hemodialysis cath august-October 27, bilateral cataracts removed, CAPD cath adjustment within two weeks of first insertion in 2016 Past Anesthesia/Blood Transfusion Reactions: No Reported Reaction Additional Past Anesthesia/Blood Transfusion Reaction / Comment(s): previous blood transfusion without any reactions Date of Last Stent Placement:: 09/03/23 Smoking Status: Never smoker - Past Family History Sister(s) Family Medical History: Cancer Father Family Medical History: Cancer, Deep Vein Thrombosis (DVT) Mother Family Medical History: Dementia Additional Family Medical History / Comment(s): from alzheimer's Brother(s) Family Medical History: Diabetes Mellitus Medications and Allergies Home Medications Medication Instructions Recorded Confirmed Type Omeprazole [PriLOSEC] 20 mg PO DAILY 08/18/16 10/19/23 History valACYclovir HCL [Valtrex] 500 mg PO DAILY 08/18/16 10/19/23 History Finasteride [Proscar] 5 mg PO HS 03/30/18 10/19/23 History Metoprolol Tartrate [Lopressor] 25 mg PO BID 03/30/18 10/19/23 History Pregabalin [Lyrica] 75 mg PO BID 03/30/18 10/19/23 History Pro-Renal + Vit D (Unknown) 1 tab PO DAILY 03/30/18 10/19/23 History Ergocalciferol (Vitamin D2) 1,250 mcg PO SA 05/21/23 10/19/23 History [Drisdol (50,000 Iu)] Magnesium Oxide [Mag-Ox] 400 mg PO DAILY 05/21/23 10/19/23 History Micera 50mcg/0.3ml 50 mcg INJ Q14D 05/21/23 10/19/23 History Sodium Bicarbonate Tab 650 mg PO BID 05/21/23 10/19/23 History Tamsulosin [Flomax] 0.4 mg PO HS 05/21/23 10/19/23 History Cyanocobalamin (Vitamin B-12) 1,000 mcg PO DAILY 06/18/23 10/19/23 History [Vitamin B-12] Aspirin [Adult Low Dose Aspirin EC] 81 mg PO DAILY 06/24/23 10/19/23 History Clopidogrel [Plavix] 75 mg PO DAILY #90 tab 09/04/23 10/19/23 Rx Nitroglycerin Sl Tabs [Nitrostat] 0.4 mg SUBLINGUAL Q5M PRN #25 tab 09/04/23 10/19/23 Rx Calcium Carbonate [Tums] 1,000 mg PO W/BRKFST 09/24/23 10/19/23 History Calcium Carbonate [Tums] 3,000 mg PO QID 09/24/23 10/19/23 History Rosuvastatin [Crestor] 20 mg PO HS 09/24/23 10/19/23 History guaiFENesin-Coden 100-10MG/5ML 10 ml PO Q6HR PRN #120 ml 10/06/23 10/19/23 Rx [Robitussin AC] Loperamide [Imodium] 2 mg PO DAILY PRN 10/16/23 10/19/23 History Midodrine [ProAmatine] 10 mg PO TID PRN 10/16/23 10/19/23 History hydrALAZINE HCL 25 mg PO BID PRN 10/16/23 10/19/23 History Lenalidomide [Revlimid] 2.5 mg PO DIRECTED 10/17/23 10/19/23 History HYDROcodone/APAP 5-325MG [[place] 1 tab PO Q6HR PRN 3 Days #6 tab 10/18/23 10/19/23 Rx 5-325] Allergies Allergy/AdvReac Type Severity Reaction Status Date / Time No Known Allergies Allergy Verified 10/19/23 09:39 Physical Exam Vitals: Vital Signs Temp Pulse Resp BP Pulse Ox 10/19/23 10:30 97.6 F 74 17 93/65 99 10/19/23 09:10 77 18 102/68 10/19/23 06:37 75 20 125/67 96 10/19/23 04:37 70 15 113/55 98 10/19/23 03:32 73 17 113/55 97 10/19/23 00:46 81 16 121/56 99 06/07/24 23:06 82 18 97/60 96 Intake and Output 10/18/23 10/19/23 10/19/23 22:59 06:59 14:59 Other: Weight 83.007 kg Results 10/18/23 23:26 10/18/23 23:26 Cardiac Enzymes 10/18/23 10/18/23 10/19/23 Range/Units 23:26 23:26 04:02 AST 60 H (17-59) U/L Troponin I 0.084 H* 0.132 H* (0.000-0.034) ng/mL 10/19/23 Range/Units 07:57 AST (17-59) U/L Troponin I 0.168 H* (0.000-0.034) ng/mL Coagulation 10/18/23 Range/Units 23:26 PT 11.0 (10.0-12.5) sec APTT 21.4 L (22.0-30.0) sec CBC 10/18/23 Range/Units 23:26 WBC 5.3 (3.8-10.6) k/uL RBC 2.28 L (4.30-5.90) m/uL Hgb 8.2 L (13.0-17.5) gm/dL Hct 24.6 L (39.0-53.0) % Plt Count 109 L (150-450) k/uL Comprehensive Metabolic Panel 10/18/23 Range/Units 23:26 Sodium 134 L (137-145) mmol/L Potassium 3.6 (3.5-5.1) mmol/L Chloride 98 (98-107) mmol/L Carbon Dioxide 29 (22-30) mmol/L BUN 42 H (9-20) mg/dL Creatinine 4.48 H (0.66-1.25) mg/dL Glucose 81 (74-99) mg/dL Calcium 8.5 (8.4-10.2) mg/dL AST 60 H (17-59) U/L ALT 14 (4-49) U/L Alkaline Phosphatase 87 (38-126) U/L Total Protein 4.7 L (6.3-8.2) g/dL Albumin 3.0 L (3.5-5.0) g/dL Current Medications Generic Name Dose Route Start Last Admin Trade Name Freq PRN Reason Stop Dose Admin Midodrine 2.5 mg 10/19/23 12:30 Midodrine 5 Mg Tab PO AC-TID LAURE Naloxone HCl 0.2 mg 10/19/23 02:08 Naloxone 0.4 Mg/Ml 1 Ml Vial IV Q2M PRN Opioid Reversal Intake and Output 10/18/23 10/19/23 10/19/23 22:59 06:59 14:59 Other: Weight 83.007 kg 10/18/23 23:26 10/18/23 23:26
--- NOTE | 2023-10-19 11:21 | P.NPCON ---
History of Present Illness - Reason for Consult end stage renal disease - History of Present Illness Reason for consultation: End-stage renal disease History of present illness: Patient is a 77-year-old male seen in renal consultation for end-stage renal disease. He is maintained on hemodialysis on Saturday schedule via permacath. Patient was doing peritoneal dialysis in the past and the catheter was removed October 18, 2023. He is due for hemodialysis today. Patient states when he went home after dialysis catheter removal yesterday, he felt fine. Later in the day he felt weak and fell in the bathroom. EMS was subsequently called and according to the he did lose consciousness briefly while being attended by the EMS. Patient has history of coronary artery disease with cardiac stenting in the past. He has been taking midodrine outpatient if blood pressure gets below 115 systolic. He denies chest pain or shortness of breath. Currently on nasal cannula. Patient has history of multiple myeloma. Recently underwent thoracentesis with 1.5 L drained during prior admission. Vital signs are stable. General: No acute distress. HEENT: Head exam is unremarkable. LUNGS: No audible rhonchi or wheezes. HEART: Rate and Rhythm are regular. ABDOMEN: Nontender. EXTREMITITES: Trace edema. 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 History of Any Multi-Drug Resistant Organisms: None Reported Past Surgical History: Heart Catheterization, Heart Catheterization With Stent Additional Past Surgical History / Comment(s): lithotripsy/laser, fatty tumor removed from right chest, colonoscopy, PERMA cath rt upper chest- removed 2016, hemodialysis cath august-October 27, bilateral cataracts removed, CAPD cath adjustment within two weeks of first insertion in 2016 Past Anesthesia/Blood Transfusion Reactions: No Reported Reaction Additional Past Anesthesia/Blood Transfusion Reaction / Comment(s): previous blood transfusion without any reactions Date of Last Stent Placement:: 09/03/23 Smoking Status: Never smoker - Past Family History Sister(s) Family Medical History: Cancer Father Family Medical History: Cancer, Deep Vein Thrombosis (DVT) Mother Family Medical History: Dementia Additional Family Medical History / Comment(s): from alzheimer's Brother(s) Family Medical History: Diabetes Mellitus Medications and Allergies Home Medications Medication Instructions Recorded Confirmed Type Omeprazole [PriLOSEC] 20 mg PO DAILY 08/18/16 10/19/23 History valACYclovir HCL [Valtrex] 500 mg PO DAILY 08/18/16 10/19/23 History Finasteride [Proscar] 5 mg PO HS 03/30/18 10/19/23 History Metoprolol Tartrate [Lopressor] 25 mg PO BID 03/30/18 10/19/23 History Pregabalin [Lyrica] 75 mg PO BID 03/30/18 10/19/23 History Pro-Renal + Vit D (Unknown) 1 tab PO DAILY 03/30/18 10/19/23 History Ergocalciferol (Vitamin D2) 1,250 mcg PO SA 05/21/23 10/19/23 History [Drisdol (50,000 Iu)] Magnesium Oxide [Mag-Ox] 400 mg PO DAILY 05/21/23 10/19/23 History Micera 50mcg/0.3ml 50 mcg INJ Q14D 05/21/23 10/19/23 History Sodium Bicarbonate Tab 650 mg PO BID 05/21/23 10/19/23 History Tamsulosin [Flomax] 0.4 mg PO HS 05/21/23 10/19/23 History Cyanocobalamin (Vitamin B-12) 1,000 mcg PO DAILY 06/18/23 10/19/23 History [Vitamin B-12] Aspirin [Adult Low Dose Aspirin EC] 81 mg PO DAILY 06/24/23 10/19/23 History Clopidogrel [Plavix] 75 mg PO DAILY #90 tab 09/04/23 10/19/23 Rx Nitroglycerin Sl Tabs [Nitrostat] 0.4 mg SUBLINGUAL Q5M PRN #25 tab 09/04/23 10/19/23 Rx Calcium Carbonate [Tums] 1,000 mg PO W/BRKFST 09/24/23 10/19/23 History Calcium Carbonate [Tums] 3,000 mg PO QID 09/24/23 10/19/23 History Rosuvastatin [Crestor] 20 mg PO HS 09/24/23 10/19/23 History guaiFENesin-Coden 100-10MG/5ML 10 ml PO Q6HR PRN #120 ml 10/06/23 10/19/23 Rx [Robitussin AC] Loperamide [Imodium] 2 mg PO DAILY PRN 10/16/23 10/19/23 History Midodrine [ProAmatine] 10 mg PO TID PRN 10/16/23 10/19/23 History hydrALAZINE HCL 25 mg PO BID PRN 10/16/23 10/19/23 History Lenalidomide [Revlimid] 2.5 mg PO DIRECTED 10/17/23 10/19/23 History HYDROcodone/APAP 5-325MG [[place] 1 tab PO Q6HR PRN 3 Days #6 tab 10/18/23 10/19/23 Rx 5-325] Allergies Allergy/AdvReac Type Severity Reaction Status Date / Time No Known Allergies Allergy Verified 10/19/23 09:39 Physical Exam Vitals: Vital Signs Temp Pulse Resp BP Pulse Ox 10/19/23 11:05 64 17 69/56 98 10/19/23 10:30 97.6 F 74 17 93/65 99 10/19/23 09:10 77 18 102/68 10/19/23 06:37 75 20 125/67 96 10/19/23 04:37 70 15 113/55 98 10/19/23 03:32 73 17 113/55 97 10/19/23 00:46 81 16 121/56 99 10/18/23 23:06 82 18 97/60 96 Intake and Output 10/18/23 10/19/23 10/19/23 22:59 06:59 14:59 Other: Weight 83.007 kg Results - Lab Results Most recent lab results Calcium 8.5 mg/dL (8.4-10.2) 10/18/23 23:26 10/18/23 23:26 10/18/23 23:26 Assessment and Plan Plan: Assessment: 1. End-stage renal disease maintained on hemodialysis on Saturday schedule via permacath. 2. Syncope. Possibly related to orthostasis. 3. Coronary disease with cardiac stenting. 4. Volume overload. Recently underwent thoracentesis with 1.5 L drained. Chest x-ray from this admission shows again moderate to large right pleural effusion. 5. Anemia of chronic kidney disease. 6. Multiple myeloma. 7. Chronic systolic CHF with ejection fraction of 45 to 50%. Plan: Hemodialysis today. Increase midodrine to 10 mg 3 times daily. Hold for systolic blood pressure greater than 120. Check iron studies. Check phosphorus level. May need thoracentesis. Thank you for the consultation. I will continue to follow the patient with you during his hospital stay.
[2023-10-19] MEDS: MIDODRINE 5 MG TAB PO SCH (12:20)
[2023-10-19] MEDS ORDERED: MIDODRINE 5 MG TAB PO SCH (12:30)
[2023-10-19] MEDS ORDERED: hydrALAZINE HCL 25 MG TAB PO PRN (14:13)
[2023-10-19] MEDS ORDERED: NITROGLYCERIN SL TABS 0.4 MG TAB SUBLINGUAL PRN (14:13)
[2023-10-19] MEDS ORDERED: LOPERAMIDE 2 MG CAP PO PRN (14:13)
[2023-10-19] MEDS ORDERED: HYDROcodone/APAP 5-325MG 1 EACH TAB PO PRN (14:13)
[2023-10-19] MEDS ORDERED: MIDODRINE 5 MG TAB PO PRN (14:13)
--- NOTE | 2023-10-19 14:16 | P.HPIM ---
History of Present Illness H&P Date: 10/19/23 Dean Earl, is a 77 year old male who presented to [facility] emergency room with a chief complaint of generalized weakness and episode of syncope He was evaluated in the emergency room vital examination on presentation revealed pulse 82 respiration 18 blood pressure 97/60 pulse ox 96% on 4 L nasal cannula Laboratory data reveals a white blood count of 5.3 hemoglobin 8.2 platelet count 109 BUN 42 creatinine 4.48 troponin level was elevated at 0.[address] [place] [address] Testing in the emergency room revealed chest x-ray revealed cardiomegaly with moderate to large right pleural effusion, EKG revealed normal sinus rhythm normal EKG Patient was admitted to medical floor for further evaluation and treatment Past medical history is significant for end-stage renal disease on hemodialysis, patient was maintained on peritoneal dialysis up till recently, history of hypertension, history of hyperlipidemia, history of coronary artery disease with previous history of angioplasty and stent placement, history of right pleural effusion with recent thoracentesis, history of multiple myeloma Past Medical History Past Medical History: Cancer, Dialysis, GERD/Reflux, Hyperlipidemia, Hypertension, Osteoarthritis (OA), Prostate Disorder, Renal Disease Additional Past Medical History / Comment(s): multiple myeloma, enlarged prostate, kidney stones, diverticulosis, hiatal hernia, hemodialysis august-October 2016, CAPD since October 2016-CURRENTLY ON HEMODIALYSIS WAITING FOR NEW PD CATHETER, orthostatic hypotension, neuropathy, leaky mitral valve/weak left ventricle of heart, pt is on oral CHEMO Revlamid Saturday and . History of Any Multi-Drug Resistant Organisms: None Reported Past Surgical History: Heart Catheterization, Heart Catheterization With Stent Additional Past Surgical History / Comment(s): lithotripsy/laser, fatty tumor removed from right chest, colonoscopy, PERMA cath rt upper chest- removed 2016, hemodialysis cath august-October 27, bilateral cataracts removed, CAPD cath adjustment within two weeks of first insertion in 2016 Past Anesthesia/Blood Transfusion Reactions: No Reported Reaction Additional Past Anesthesia/Blood Transfusion Reaction / Comment(s): previous blood transfusion without any reactions Date of Last Stent Placement:: 09/03/23 Smoking Status: Never smoker - Past Family History Sister(s) Family Medical History: Cancer Father Family Medical History: Cancer, Deep Vein Thrombosis (DVT) Mother Family Medical History: Dementia Additional Family Medical History / Comment(s): from alzheimer's Brother(s) Family Medical History: Diabetes Mellitus Medications and Allergies Home Medications Medication Instructions Recorded Confirmed Type Omeprazole [PriLOSEC] 20 mg PO DAILY 08/18/16 10/19/23 History valACYclovir HCL [Valtrex] 500 mg PO DAILY 08/18/16 10/19/23 History Finasteride [Proscar] 5 mg PO HS 03/30/18 10/19/23 History Metoprolol Tartrate [Lopressor] 25 mg PO BID 03/30/18 10/19/23 History Pregabalin [Lyrica] 75 mg PO BID 03/30/18 10/19/23 History Pro-Renal + Vit D (Unknown) 1 tab PO DAILY 03/30/18 10/19/23 History Ergocalciferol (Vitamin D2) 1,250 mcg PO SA 05/21/23 10/19/23 History [Drisdol (50,000 Iu)] Magnesium Oxide [Mag-Ox] 400 mg PO DAILY 05/21/23 10/19/23 History Micera 50mcg/0.3ml 50 mcg INJ Q14D 05/21/23 10/19/23 History Sodium Bicarbonate Tab 650 mg PO BID 05/21/23 10/19/23 History Tamsulosin [Flomax] 0.4 mg PO HS 05/21/23 10/19/23 History Cyanocobalamin (Vitamin B-12) 1,000 mcg PO DAILY 06/18/23 10/19/23 History [Vitamin B-12] Aspirin [Adult Low Dose Aspirin EC] 81 mg PO DAILY 06/24/23 10/19/23 History Clopidogrel [Plavix] 75 mg PO DAILY #90 tab 09/04/23 10/19/23 Rx Nitroglycerin Sl Tabs [Nitrostat] 0.4 mg SUBLINGUAL Q5M PRN #25 tab 09/04/23 10/19/23 Rx Calcium Carbonate [Tums] 1,000 mg PO W/BRKFST 09/24/23 10/19/23 History Calcium Carbonate [Tums] 3,000 mg PO QID 09/24/23 10/19/23 History Rosuvastatin [Crestor] 20 mg PO HS 09/24/23 10/19/23 History guaiFENesin-Coden 100-10MG/5ML 10 ml PO Q6HR PRN #120 ml 10/06/23 10/19/23 Rx [Robitussin AC] Loperamide [Imodium] 2 mg PO DAILY PRN 10/16/23 10/19/23 History Midodrine [ProAmatine] 10 mg PO TID PRN 10/16/23 10/19/23 History hydrALAZINE HCL 25 mg PO BID PRN 10/16/23 10/19/23 History Lenalidomide [Revlimid] 2.5 mg PO DIRECTED 10/17/23 10/19/23 History HYDROcodone/APAP 5-325MG [[place] 1 tab PO Q6HR PRN 3 Days #6 tab 10/18/23 10/19/23 Rx 5-325] Allergies Allergy/AdvReac Type Severity Reaction Status Date / Time No Known Allergies Allergy Verified 10/19/23 09:39 Physical Exam Vitals: Vital Signs Pulse Resp BP Pulse Ox 10/19/23 09:10 77 18 102/68 10/19/23 06:37 75 20 125/67 96 10/19/23 04:37 70 15 113/55 98 10/19/23 03:32 73 17 113/55 97 10/19/23 00:46 81 16 121/56 99 10/18/23 23:06 82 18 97/60 96 Intake and Output 10/18/23 10/19/23 10/19/23 22:59 06:59 14:59 Other: Weight 83.007 kg In general patient is alert and oriented x 3 in no distress HEENT head normocephalic and atraumatic Neck is supple no JVD no goiter no lymphadenopathy no carotid bruit Chest examination is clear to auscultation no crackles no wheezing Cardiac exam reveals regular heart sounds S1 and S2 no gallops no murmurs Abdomen is soft nontender no organomegaly with normal bowel sounds Extremity exam reveals no edema no cyanosis or clubbing Neurological examination reveals no gross focal deficits Results CBC & Chem 7: 10/18/23 23:26 10/18/23 23:26 Labs: Abnormal Lab Results - Last 24 Hours (Table) 10/18/23 10/18/23 10/18/23 Range/Units 23:26 23:26 23:26 RBC 2.28 L (4.30-5.90) m/uL Hgb 8.2 L (13.0-17.5) gm/dL Hct 24.6 L (39.0-53.0) % MCV 107.6 H (80.0-100.0) fL MCH 36.1 H (25.0-35.0) pg RDW 17.9 H (11.5-15.5) % Plt Count 109 L (150-450) k/uL Lymphocytes # 0.4 L (1.0-4.8) k/uL Macrocytosis Marked A APTT 21.4 L (22.0-30.0) sec Sodium 134 L (137-145) mmol/L BUN 42 H (9-20) mg/dL Creatinine 4.48 H (0.66-1.25) mg/dL AST 60 H (17-59) U/L Troponin I (0.000-0.034) ng/mL Total Protein 4.7 L (6.3-8.2) g/dL Albumin 3.0 L (3.5-5.0) g/dL 10/18/23 10/19/23 10/19/23 Range/Units 23:26 04:02 07:57 RBC (4.30-5.90) m/uL Hgb (13.0-17.5) gm/dL Hct (39.0-53.0) % MCV (80.0-100.0) fL MCH (25.0-35.0) pg RDW (11.5-15.5) % Plt Count (150-450) k/uL Lymphocytes # (1.0-4.8) k/uL Macrocytosis APTT (22.0-30.0) sec Sodium (137-145) mmol/L BUN (9-20) mg/dL Creatinine (0.66-1.25) mg/dL AST (17-59) U/L Troponin I 0.084 H* 0.132 H* 0.168 H* (0.000-0.034) ng/mL Total Protein (6.3-8.2) g/dL Albumin (3.5-5.0) g/dL Assessment and Plan Plan: Syncope, with orthostatic hypotension Elevated troponin level right pleural effusion, with recent history of thoracentesis Orthostatic hypotension End-stage renal disease on hemodialysis Anemia of chronic kidney disease. Chronic systolic CHF Coronary disease with cardiac stenting. Underlying history of multiple myeloma At this time patient was seen and examined in the emergency room Home medications reviewed and reordered Cardiology and nephrology consultation requested in the emergency room Will add pulmonary consultation for possible thoracentesis Will follow closely during this admission
[2023-10-19] MEDS: LENALIDOMIDE 2.5 MG PO SCH (17:39)
[2023-10-19] MEDS: [UNRECOGNIZED DRUG - OTHER] INJ SCH (17:40)
[2023-10-19] MEDS: CALCIUM CARBONATE 500 MG CHEWABLE PO SCH ×2 (17:44→18:25)
[2023-10-19] MEDS: METOPROLOL TARTRATE 25 MG TAB PO SCH (18:23)
[2023-10-19] MEDS: ERGOCALCIFEROL 1,250 MCG (50,000 IU) CAPSULE PO SCH (18:24)
[2023-10-19] MEDS: CLOPIDOGREL 75 MG TAB PO SCH (18:25)
[2023-10-19] MEDS: ASPIRIN 81 MG PO SCH (18:25)
[2023-10-19] MEDS: PREGABALIN 75 MG CAP PO SCH (20:50)
[2023-10-19] MEDS: FINASTERIDE 5 MG TAB PO SCH (20:50)
[2023-10-19] MEDS: SODIUM BICARBONATE TAB 650 MG TAB PO SCH (20:50)
[2023-10-19] MEDS: ATORVASTATIN 40 MG TAB PO SCH (20:50)
[2023-10-19] MEDS: TAMSULOSIN 0.4 MG CAP.ER.24H PO SCH (20:50)
[2023-10-19] MEDS: DOCUSATE 100 MG CAP PO SCH (22:12)
[2023-10-20 06:28] LABS: % Iron Saturation 19.21 (15.00-50.00)
[2023-10-20 07:35] LABS: Hepatitis B Surface Antigen Nonreactive (Nonreactive)
[2023-10-20] MEDS ORDERED: NON FORMULARY DRUG (Aspirin [Adult Low Dose Aspirin Ec] 81 MG Tablet) PO SCH (09:00)
[2023-10-20 09:17] LABS: African American GFR (CKD) 16 (>60 ml/min/1.73 sqM); Anion Gap 2 mmol/L; Blood Urea Nitrogen 26 mg/dL (9-20); Calcium 8.5 mg/dL (8.4-10.2); Carbon Dioxide 32 mmol/L (22-30); Chloride 101 mmol/L (98-107); Glucose 81 mg/dL (74-99); Non-African American GFR(CKD) 14 (>60 ml/min/1.73 sqM); Phosphorus 2.8 mg/dL (2.5-4.5); Potassium 3.7 mmol/L (3.5-5.1); Sodium 135 mmol/L (137-145)
[2023-10-20 09:21] LABS: Anisocytosis Slight; Basophils % (A) 0 %; Eosinophils # (A) 0.1 k/uL (0-0.7); Eosinophils % (A) 4 %; HCT 23.7 % (39.0-53.0); HGB 7.7 gm/dL (13.0-17.5); Lymphocytes # (A) 0.4 k/uL (1.0-4.8); Lymphocytes % (A) 13 %; MCH 35.7 pg (25.0-35.0); MCHC 32.7 g/dL (31.0-37.0); MCV 109.3 fL (80.0-100.0); Macrocytosis Marked; Mean Platelet Volume 9.2; Monocytes # (A) 0.3 k/uL (0-1.0); Monocytes % (A) 11 %; Neutrophils # (A) 2.2 k/uL (1.3-7.7); Neutrophils % (A) 68 %; RBC 2.17 m/uL (4.30-5.90); RDW 18.6 % (11.5-15.5); WBC 3.2 k/uL (3.8-10.6)
[2023-10-20] MEDS: FOLIC ACID-VIT B COMPLEX-VIT C 1 CAP PO SCH (09:45)
[2023-10-20] MEDS: valACYclovir HCL 500 MG TAB PO SCH (09:45)
[2023-10-20] MEDS: PANTOPRAZOLE 40 MG TABLET PO SCH (09:45)
[2023-10-20] MEDS: CYANOCOBALAMIN 500 MCG TAB PO SCH (09:45)
[2023-10-20] MEDS: MAGNESIUM OXIDE 400 MG TAB PO SCH (09:46)
[2023-10-20] MEDS: ENOXAPARIN 30 MG/0.3 ML SYRINGE SQ SCH (09:55)
[2023-10-20] MEDS: CLOPIDOGREL 75 MG TAB PO SCH (10:01)
--- NOTE | 2023-10-20 10:17 | P.PN ---
Subjective Progress Note Date: 10/20/23 Dean Earl, is a 77 year old male who presented to [facility] emergency room with a chief complaint of generalized weakness and episode of syncope He was evaluated in the emergency room vital examination on presentation revealed pulse 82 respiration 18 blood pressure 97/60 pulse ox 96% on 4 L nasal cannula Laboratory data reveals a white blood count of 5.3 hemoglobin 8.2 platelet count 109 BUN 42 creatinine 4.48 troponin level was elevated at 0.084 [place] [id number] Testing in the emergency room revealed chest x-ray revealed cardiomegaly with moderate to large right pleural effusion, EKG revealed normal sinus rhythm normal EKG Patient was admitted to medical floor for further evaluation and treatment Past medical history is significant for end-stage renal disease on hemodialysis, patient was maintained on peritoneal dialysis up till recently, history of hypertension, history of hyperlipidemia, history of coronary artery disease with previous history of angioplasty and stent placement, history of right pleural effusion with recent thoracentesis, history of multiple myeloma On 10/20/2023 patient was seen and examined on the medical floor he is alert and oriented x 3 in no apparent distress there is no fever or chills no headache or dizziness no chest pain no shortness of breath no cough no nausea or vomiting no abdominal pain no diarrhea no blood in the stools no burning with urination no frequency or urgency and no hematuria, patient is complaining of severe constip ation and asking for enemas, otherwise he denies any complaints at this time. Cardiology consult reviewed, restart dual antiplatelet therapy with aspirin and Plavix, and hold metoprolol at this time, will continue to follow closely. Objective - Vital Signs Vital signs: Vital Signs Temp 97.6 F 10/19/23 10:30 Pulse 68 10/20/23 07:34 Resp 16 10/20/23 07:34 BP 123/64 10/20/23 07:34 Pulse Ox 100 10/20/23 07:34 FiO2 - Exam In general patient is alert and oriented x 3 in no distress HEENT head normocephalic and atraumatic Neck is supple no JVD no goiter no lymphadenopathy no carotid bruit Chest examination is clear to auscultation no crackles no wheezing Cardiac exam reveals regular heart sounds S1 and S2 no gallops no murmurs Abdomen is soft nontender no organomegaly with normal bowel sounds Extremity exam reveals no edema no cyanosis or clubbing Neurological examination reveals no gross focal deficits - Labs CBC & Chem 7: 10/20/23 07:56 10/20/23 07:56 Labs: Abnormal Lab Results - Last 24 Hours (Table) 10/19/23 10/20/23 Range/Units 07:57 07:56 Sodium 135 L (137-145) mmol/L Carbon Dioxide 32 H (22-30) mmol/L BUN 26 H (9-20) mg/dL Creatinine 4.04 H (0.66-1.25) mg/dL Iron 39 L (65-175) UG/DL TIBC 203 L (228-460) UG/DL Transferrin 145.0 L (204.0-354.0) mg/dL Ferritin 1482.0 H (22.0-322.0) ng/mL Assessment and Plan Plan: Syncope, with orthostatic hypotension Elevated troponin level right pleural effusion, with recent history of thoracentesis Orthostatic hypotension End-stage renal disease on hemodialysis Anemia of chronic kidney disease. Chronic systolic CHF Coronary disease with cardiac stenting. Underlying history of multiple myeloma At this time patient was seen and examined in the emergency room Home medications reviewed and reordered Cardiology and nephrology consultation requested in the emergency room Will add pulmonary consultation for possible thoracentesis Will follow closely during this admission
--- NOTE | 2023-10-20 10:29 | P.PN ---
Subjective Progress Note Date: 10/20/23 The patient is a 77-year-old gentleman who is known to our service from before with a past medical history significant for CAD with prior stenting of OM as well as cardiomyopathy with a EF around 45% and also end-stage renal disease on dialysis as well as history of orthostatic hypotension and multiple myeloma and multiple comorbid conditions was admitted to the emergency department after he lost his consciousness at home. The patient was in his usual state of health till yesterday when he went to the hospital and had his dialysis catheter taken out. It was peritoneal dialysis catheter. Currently he is on hemodialysis and the last hemodialysis was performed on . He was in his usual state of health till yesterday when he walked to the bathroom and subsequently his found him on the floor after he passed out. No prodromal symptoms. She checked his pressure and the pressure was low and also she checked his pulse oxygen saturation and that came in to be low. Ambulance was called and the patient was brought to the hospital. He continues to be having marginally low blood pres sure. No chest pain or chest discomfort. He underwent further evaluation including an EKG showed sinus mechanism with nonspecific changes and chest x-ray showed moderate to large right pleural effusion but he is known to have pleural effusion before and he underwent pleurocentesis in the past. At home and the only medication has been taken which potential lowering the pressure is metoprolol. Beside that he was receiving all his medications including dual antiplatelet therapy. The examination is remarkable for regular rhythm with a distant heart sounds and diminished breathing sounds on the right side and no edema was noted in the lower extremities October 20, 2023 The patient was seen and evaluated this morning. He did not have any more episode of change in mental status or syncope but he has not been out of the bed. He has been struggling with constipation. No symptoms of chest pain or chest discomfort. The dose of midodrine has increased yesterday by the nephrology service. The examination is remarkable for stable vital signs with regular rate and rhythm and diminished breathing sounds bilaterally and no edema was noted. Assessment Orthostatic hypotension Syncope secondary to the above Marginally low blood pressure CAD as described above End-stage renal disease on dialysis Moderate to large right pleural effusion Multiple comorbid conditions Plan Continue the current medical regimen Continue the current dose of midodrine Avoid restarting the patient on metoprolol at this point Follow-up with the patient Objective - Vital Signs Vital signs: Vital Signs Temp 97.6 F 10/19/23 10:30 Pulse 82 10/20/23 09:40 Resp 16 10/20/23 09:40 BP 146/82 10/20/23 09:40 Pulse Ox 99 10/20/23 09:40 FiO2 - Labs CBC & Chem 7: 10/20/23 07:56 10/20/23 07:56 Labs: Abnormal Lab Results - Last 24 Hours (Table) 10/19/23 10/20/23 10/20/23 Range/Units 07:57 07:56 07:56 WBC 3.2 L (3.8-10.6) k/uL RBC 2.17 L (4.30-5.90) m/uL Hgb 7.7 L (13.0-17.5) gm/dL Hct 23.7 L (39.0-53.0) % MCV 109.3 H (80.0-100.0) fL MCH 35.7 H (25.0-35.0) pg RDW 18.6 H (11.5-15.5) % Macrocytosis Marked A Sodium 135 L (137-145) mmol/L Carbon Dioxide 32 H (22-30) mmol/L BUN 26 H (9-20) mg/dL Creatinine 4.04 H (0.66-1.25) mg/dL Iron 39 L (65-175) UG/DL TIBC 203 L (228-460) UG/DL Transferrin 145.0 L (204.0-354.0) mg/dL Ferritin 1482.0 H (22.0-322.0) ng/mL
[2023-10-20] MEDS: NA PHOS,M-B/NA PHOS,DI-BA 133 ML ENEMA RECTAL ONE (11:09)
--- NOTE | 2023-10-20 11:11 | P.PN ---
Subjective Patient is seen in follow-up for end-stage renal disease. He is maintained on hemodialysis on Saturday schedule. Completed hemodialysis yesterday with nearly 1.5 L ultrafiltration. Blood pressure stable. Vital signs are stable. General: No acute distress. HEENT: Head exam is unremarkable. On nasal cannula. LUNGS: No audible rhonchi or wheezes. HEART: Rate and Rhythm are regular. ABDOMEN: Nontender. EXTREMITITES: 1+ edema. Objective - Vital Signs Vital signs: Vital Signs Temp 97.6 F 10/19/23 10:30 Pulse 82 10/20/23 09:40 Resp 16 10/20/23 09:40 BP 146/82 10/20/23 09:40 Pulse Ox 99 10/20/23 09:40 FiO2 - Labs CBC & Chem 7: 10/20/23 07:56 10/20/23 07:56 Labs: Abnormal Lab Results - Last 24 Hours (Table) 10/19/23 10/20/23 10/20/23 Range/Units 07:57 07:56 07:56 WBC 3.2 L (3.8-10.6) k/uL RBC 2.17 L (4.30-5.90) m/uL Hgb 7.7 L (13.0-17.5) gm/dL Hct 23.7 L (39.0-53.0) % MCV 109.3 H (80.0-100.0) fL MCH 35.7 H (25.0-35.0) pg RDW 18.6 H (11.5-15.5) % Macrocytosis Marked A Sodium 135 L (137-145) mmol/L Carbon Dioxide 32 H (22-30) mmol/L BUN 26 H (9-20) mg/dL Creatinine 4.04 H (0.66-1.25) mg/dL Iron 39 L (65-175) UG/DL TIBC 203 L (228-460) UG/DL Transferrin 145.0 L (204.0-354.0) mg/dL Ferritin 1482.0 H (22.0-322.0) ng/mL Assessment and Plan Plan: Assessment: 1. End-stage renal disease maintained on hemodialysis on Saturday schedule via permacath. 2. Syncope. Possibly related to orthostasis. 3. Coronary disease with cardiac stenting. 4. Volume overload. Recently underwent thoracentesis with 1.5 L drained. Chest x-ray from this admission shows again moderate to large right pleural effusion. 5. Anemia of chronic kidney disease. High ferritin noted. 6. Multiple myeloma. 7. Chronic systolic CHF with ejection fraction of 45 to 50%. Plan: Hemodialysis Saturday. Will consider extra treatment tomorrow depending on his respiratory status. Maintain midodrine. Hold for systolic blood pressure greater than 120. Add Aranesp. Phosphorus level 2.8. May need thoracentesis.
[2023-10-20 11:34] LABS: Platelet Count 89 k/uL (150-450)
--- NOTE | 2023-10-20 13:37 | XR ---
EXAMINATION TYPE: XR abdomen 2V DATE OF EXAM: 10/20/2023 1:17 PM CLINICAL INDICATION:Male, 77 years old with history of constipation; [facility] COMPARISON: 10/03/2023. TECHNIQUE: Two views of the abdomen were obtained. FINDINGS: The bowel gas pattern is nonspecific without dilated loops of small or large bowel. There i s no evidence for organomegaly or pneumoperitoneum. The osseous structures are intact. No abnormal calcifications are present. Fecal material and gas are demonstrated throughout the colon and rectum. Bilateral renal calculi measuring up to 9 mm bilaterally. Central venous catheter tip projects over t he right atrium. IMPRESSION: 1. Nonspecific bowel gas pattern without radiographic evidence for acute process. 2. Bilateral renal calculi.
[2023-10-20] MEDS: DARBEPOETIN ALFA 40 MCG/0.4 ML SYRINGE SQ SCH (14:00)
[2023-10-21 06:09] LABS: Glucose,Whole Blood 100 mg/dL (70-110)
[2023-10-21 09:00] LABS: Hepatitis B Surface AB- Quant 3.5 mIU/mL
[2023-10-21 11:22] LABS: Glucose,Whole Blood 149 mg/dL (70-110)
--- NOTE | 2023-10-21 11:22 | P.PN ---
Subjective HISTORY OF PRESENT ILLNESS: The patient is a 77-year-old gentleman who is known to our service from before with a past medical history significant for CAD with prior stenting of OM as well as cardiomyopathy with a EF around 45% and also end-stage renal disease on dialysis as well as history of orthostatic hypotension and multiple myeloma and multiple comorbid conditions was admitted to the emergency department after he lost his consciousness at home. The patient was in his usual state of health till yesterday when he went to the hospital and had his dialysis catheter taken out. It was peritoneal dialysis catheter. Currently he is on hemodialysis and the last hemodialysis was performed on . He was in his usual state of health till yesterday when he walked to the bathroom and subsequently his found him on the floor after he passed out. No prodromal symptoms. She checked his pressure and the pressure was low and also she checked his pulse oxygen saturation and that came in to be low. Ambulance was called and the patient was brought to the hospital. He continues to be having marginally low blood pressure. No chest pain or chest discomfort. He underwent further evaluation including an EKG showed sinus mechanism with nonspecific changes and chest x-ray showed moderate to large right pleural effusion but he is known to have pleural effusion before and he underwent pleurocentesis in the past. At home and the only medication has been taken which potential lowering the pressure is metoprolol. Beside that he was receiving all his medications including dual antiplatelet therapy. The examination is remarkable for regular rhythm with a distant heart sounds and diminished breathing sounds on the right side and no edema was noted in the lower extremities October 20, 2023 The patient was seen and evaluated this morning. He did not have any more episode of change in mental status or syncope but he has not been out of the bed. He has been struggling with constipation. No symptoms of chest pain or chest discomfort. The dose of midodrine has increased yesterday by the nephrology service. The examination is remarkable for stable vital signs with regular rate and rhythm and diminished breathing sounds bilaterally and no edema was noted. October 21, 2023 Patient examined this morning at the bedside. Patient currently denies any chest pain or pressure. He denies any shortness of breath. Patient complains of being constipated this morning. He denies any abdominal pain. Patient's vital signs are stable. PHYSICAL EXAM: VITAL SIGNS: Reviewed. GENERAL: Well-developed in no acute distress. NECK: Supple. No JVD or thyromegaly LUNGS: Respirations even and unlabored. Lungs with decreased breath sounds in right lower lobe. HEART: Regular rate and rhythm. S1 and S2 heard. EXTREMITIES: Normal range of motion. No clubbing or cyanosis. Peripheral pulses intact. No lower extremity edema ASSESSMENT: Orthostatic hypotension Syncope secondary to orthostatic hypotension Coronary artery disease with recent stenting of OM1, September 03, 2023 End-stage renal disease on hemodialysis Abnormal troponin secondary to poor renal clearance, no evidence of acute coronary syndrome/Type I [place] Moderate to large right pleural effusion with Mild ischemic cardiomyopathy, ejection fraction 45% Pancytopenia History of multiple myeloma Constipation PLAN: Decrease Midodrine to 5mg TID Continue to hold metoprolol Continue to monitor blood pressure Continue dual antiplatelet therapy with aspirin and Plavix due to recent stenting in August 2023 Further recommendations pending patient course Nurse practitioner note has been reviewed by physician. Signing provider agrees with the documented findings, assessment, and plan of care documented by [employer] as a scribe. Objective - Vital Signs Vital signs: Vital Signs Temp 97.7 F 10/21/23 09:23 Pulse 84 10/21/23 09:25 Resp 18 10/21/23 09:25 BP 102/56 10/21/23 09:23 Pulse Ox 99 10/21/23 09:23 FiO2 Intake & Output 10/20/23 10/21/23 10/21/23 18:59 06:59 18:59 Intake Total 120 Balance 120 Weight 86.5 kg Intake: Oral 120 Other: Voiding Method Urinal Urinal # Bowel Movements 1 - Labs CBC & Chem 7: 10/20/23 07:56 10/20/23 07:56 Labs: Abnormal Lab Results - Last 24 Hours (Table) 10/20/23 Range/Units 07:56 Plt Count 89 L (150-450) k/uL Lymphocytes # 0.4 L (1.0-4.8) k/uL
[2023-10-21 11:57] LABS: Anisocytosis Slight; Basophils % (A) 0 %; Eosinophils # (A) 0.1 k/uL (0-0.7); Eosinophils % (A) 1 %; HCT 22.5 % (39.0-53.0); HGB 7.4 gm/dL (13.0-17.5); Lymphocytes # (A) 0.2 k/uL (1.0-4.8); Lymphocytes % (A) 5 %; MCH 36.3 pg (25.0-35.0); MCHC 32.7 g/dL (31.0-37.0); MCV 110.8 fL (80.0-100.0); Macrocytosis Marked; Mean Platelet Volume 9.1; Monocytes # (A) 0.4 k/uL (0-1.0); Monocytes % (A) 10 %; Neutrophils # (A) 3.1 k/uL (1.3-7.7); Neutrophils % (A) 79 %; Platelet Count 102 k/uL (150-450); RBC 2.03 m/uL (4.30-5.90); RDW 18.5 % (11.5-15.5); WBC 3.9 k/uL (3.8-10.6)
[2023-10-21 11:59] LABS: Albumin 2.6 g/dL (3.5-5.0); Anion Gap 5 mmol/L; Carbon Dioxide 28 mmol/L (22-30); Chloride 97 mmol/L (98-107); Glucose 151 mg/dL (74-99); Potassium 3.7 mmol/L (3.5-5.1); Sodium 130 mmol/L (137-145); Total Protein 4.2 g/dL (6.3-8.2)
[2023-10-21 12:00] LABS: ALT 6 U/L (4-49); AST 153 U/L (17-59); African American GFR (CKD) 11 (>60 ml/min/1.73 sqM); Alkaline Phosphatase 79 U/L (38-126); Blood Urea Nitrogen 39 mg/dL (9-20); Calcium 8.5 mg/dL (8.4-10.2); Non-African American GFR(CKD) 10 (>60 ml/min/1.73 sqM); Total Bilirubin 0.8 mg/dL (0.2-1.3)
[2023-10-21] MEDS: MIDODRINE 5 MG TAB PO SCH (12:13)
[2023-10-21] MEDS: LACTULOSE 20 GM/30 ML CUP PO SCH (12:14)
--- NOTE | 2023-10-21 12:56 | P.PN ---
Subjective Progress Note Date: 10/21/23 Dean Earl, is a 77 year old male who presented to [facility] emergency room with a chief complaint of generalized weakness and episode of syncope He was evaluated in the emergency room vital examination on presentation revealed pulse 82 respiration 18 blood pressure 97/60 pulse ox 96% on 4 L nasal cannula Laboratory data reveals a white blood count of 5.3 hemoglobin 8.2 platelet count 109 BUN 42 creatinine 4.48 troponin level was elevated at 0.084 [place] [id number] Testing in the emergency room revealed chest x-ray revealed cardiomegaly with moderate to large right pleural effusion, EKG revealed normal sinus rhythm normal EKG Patient was admitted to medical floor for further evaluation and treatment Past medical history is significant for end-stage renal disease on hemodialysis, patient was maintained on peritoneal dialysis up till recently, history of hypertension, history of hyperlipidemia, history of coronary artery disease with previous history of angioplasty and stent placement, history of right pleural effusion with recent thoracentesis, history of multiple myeloma On 10/20/2023 patient was seen and examined on the medical floor he is alert and oriented x 3 in no apparent distress there is no fever or chills no headache or dizziness no chest pain no shortness of breath no cough no nausea or vomiting no abdominal pain no diarrhea no blood in the stools no burning with urination no frequency or urgency and no hematuria, patient is complaining of severe constip ation and asking for enemas, otherwise he denies any complaints at this time. Cardiology consult reviewed, restart dual antiplatelet therapy with aspirin and Plavix, and hold metoprolol at this time, will continue to follow closely. On 10/21/2023 patient was seen and examined on the medical floor, he is alert and oriented x 3 in no apparent distress, he is complaining of generalized fatigue and weakness, complaining of shortness of breath with any activity , and complaining of constipation, otherwise he denies any complaints there is no fever or chills no headache or dizziness, no chest pain no palpitation no cough no nausea or vomiting no abdominal pain no diarrhea no blood in the stools no burning with urination no frequency or urgency and no hematuria. He is maintained on hemodialysis. Vital exam reveals a temperature of 97.2 pulse 76 respiration 18 blood pressure 107/54 pulse ox 98% on 2 L nasal cannula . his white blood count today is 3.9 hemoglobin 7.4 platelet count 102 sodium 130 potassium 3.7 chloride 97 BUN 39 creatinine 5.42 Objective - Vital Signs Vital signs: Vital Signs Temp 97.7 F 10/21/23 09:23 Pulse 84 10/21/23 09:23 Resp 18 10/21/23 09:23 BP 102/56 10/21/23 09:23 Pulse Ox 99 10/21/23 09:23 FiO2 Intake & Output 10/20/23 10/21/23 10/21/23 18:59 06:59 18:59 Intake Total 120 Balance 120 Weight 86.5 kg Intake: Oral 120 Other: Voiding Method Urinal # Bowel Movements 1 - Exam In general patient is alert and oriented x 3 in no distress HEENT head normocephalic and atraumatic Neck is supple no JVD no goiter no lymphadenopathy no carotid bruit Chest examination is clear to auscultation no crackles no wheezing Cardiac exam reveals regular heart sounds S1 and S2 no gallops no murmurs Abdomen is soft nontender no organomegaly with normal bowel sounds Extremity exam reveals no edema no cyanosis or clubbing Neurological examination reveals no gross focal deficits - Labs CBC & Chem 7: 10/21/23 10:39 10/21/23 10:39 Labs: Abnormal Lab Results - Last 24 Hours (Table) 10/20/23 Range/Units 07:56 Plt Count 89 L (150-450) k/uL Lymphocytes # 0.4 L (1.0-4.8) k/uL Assessment and Plan Plan: Syncope, with orthostatic hypotension Elevated troponin level right pleural effusion, with recent history of thoracentesis Orthostatic hypotension End-stage renal disease on hemodialysis Anemia of chronic kidney disease. Chronic systolic CHF Coronary disease with cardiac stenting. Underlying history of multiple myeloma At this time patient was seen and examined in the emergency room Home medications reviewed and reordered Cardiology and nephrology consultation requested in the emergency room Will add pulmonary consultation for possible thoracentesis Will follow closely during this admission
--- NOTE | 2023-10-21 13:07 | P.GSCN ---
History of Present Illness Consult date: 10/21/23 History of present illness: CHIEF COMPLAINT: Syncopal episode HISTORY OF PRESENT ILLNESS: This is a 77-year-old male who presents the hospital after passing out at his home. Patient had recent removal of his peritoneal dialysis catheter October [address] Tolbert. He started hemodialysis over the weekend. Patient had been feeling well after his procedure on Saturday. Patient had been getting up to go to the bathroom and felt lightheaded and slipped off the toilet. He was found to be hypoxic and hypotensive. Patient being treated for orthostatic hypotension. Patient also has a right pleural effusion and being seen by pulmonary service. Surgical service consulted in regards to constipation. Patient has not had a bowel movement in 5 days. He denies any nausea or vomiting. Denies any abdominal pain. He did receive enemas and only was able to pass water. No significant stool. Abdominal x-ray had reported nonspecific bowel gas pattern without acute process. Fecal material and gas are demonstrated throughout the colon and rectum. PAST MEDICAL HISTORY: See below PAST SURGICAL HISTORY: See below MEDICATIONS: See below ALLERGIES: See below SOCIAL HISTORY: No illicit drug use. REVIEW OF SYSTEMS: CONSTITUTIONAL: Denies fever or chills. HEENT: Denies blurred vision, vision changes, or eye pain. Denies hemoptysis CARDIOVASCULAR: Denies chest pain or pressure. RESPIRATORY: No shortness of breath. GASTROINTESTINAL: See HPI for pertinent findings HEMATOLOGIC: Denies bleeding disorders. GENITOURINARY: Denies any blood in urine or increased urinary frequency. SKIN: Denies pruitis. Denies rash. PHYSICAL EXAM: VITAL SIGNS: Reviewed GENERAL: Well-developed in no acute distress. HEENT: No sclera icterus. Extraocular movements grossly intact. Moist buccal mucosa. Head is atraumatic, normocephalic. No nasal drainage. ABDOMEN: Soft. Mildly distended. Nontender NEUROLOGIC: Alert and oriented. Cranial nerves II through XII grossly intact. LABORATORY DATA: WBC 3.9 Hgb 7.4 platelets 102 Sodium 130 potassium 3.7 creatinine 5.42 IMAGING: Abdominal x-ray as stated above ASSESSMENT: 1. Constipation 2. Syncope with orthostatic hypotension PLAN: -Lactulose twice a day and soapsuds enemas ordered for constipation -Downgrade diet to full liquids -Encourage patient to increase activity level when possible Physician Sleeve Bottom Feller note has been reviewed by physician. Signing provider agrees with the documented findings, assessment, and plan of care. I have personally seen and examined the patient, reviewed the T[employer]IT[employer] SALES CONSULTANT /PAs history, exam and MDM and agree with the assessment and plan as written. Based on total visit time, I have performed more than 50% of the visit. As above: Patient came in because of syncopal episode. Also having some constipation. He did move his bowels today. May resume regular diet. Will reassess tomorrow. 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 History of Any Multi-Drug Resistant Organisms: None Reported Past Surgical History: Heart Catheterization, Heart Catheterization With Stent Additional Past Surgical History / Comment(s): lithotripsy/laser, fatty tumor removed from right chest, colonoscopy, PERMA cath rt upper chest- removed 2016, hemodialysis cath august-October 27, bilateral cataracts removed, CAPD cath x2 with removal Past Anesthesia/Blood Transfusion Reactions: No Reported Reaction Additional Past Anesthesia/Blood Transfusion Reaction / Comm: previous blood transfusion without any reactions Date of Last Stent Placement:: 09/03/23 Past Psychological History: No Psychological Hx Reported Additional Psychological History / Comment(s): . Smoking Status: Never smoker Past Alcohol Use History: Occasional Past Drug Use History: None Reported - Past Family History Sister(s) Family Medical History: Cancer Father Family Medical History: Cancer, Deep Vein Thrombosis (DVT) Mother Family Medical History: Dementia Additional Family Medical History / Comment(s): from alzheimer's Brother(s) Family Medical History: Diabetes Mellitus Medications and Allergies Home Medications Medication Instructions Recorded Confirmed Type Omeprazole [PriLOSEC] 20 mg PO DAILY 08/18/16 10/19/23 History valACYclovir HCL [Valtrex] 500 mg PO DAILY 08/18/16 10/19/23 History Finasteride [Proscar] 5 mg PO HS 03/30/18 10/19/23 History Metoprolol Tartrate [Lopressor] 25 mg PO BID 03/30/18 10/19/23 History Pregabalin [Lyrica] 75 mg PO BID 03/30/18 10/19/23 History Pro-Renal + Vit D (Unknown) 1 tab PO DAILY 03/30/18 10/19/23 History Ergocalciferol (Vitamin D2) 1,250 mcg PO SA 05/21/23 10/19/23 History [Drisdol (50,000 Iu)] Magnesium Oxide [Mag-Ox] 400 mg PO DAILY 05/21/23 10/19/23 History Micera 50mcg/0.3ml 50 mcg INJ Q14D 05/21/23 10/19/23 History Sodium Bicarbonate Tab 650 mg PO BID 05/21/23 10/19/23 History Tamsulosin [Flomax] 0.4 mg PO HS 05/21/23 10/19/23 History Cyanocobalamin (Vitamin B-12) 1,000 mcg PO DAILY 06/18/23 10/19/23 History [Vitamin B-12] Aspirin [Adult Low Dose Aspirin EC] 81 mg PO DAILY 06/24/23 10/19/23 History Clopidogrel [Plavix] 75 mg PO DAILY #90 tab 09/04/23 10/19/23 Rx Nitroglycerin Sl Tabs [Nitrostat] 0.4 mg SUBLINGUAL Q5M PRN #25 tab 09/04/23 10/19/23 Rx Calcium Carbonate [Tums] 1,000 mg PO W/BRKFST 09/24/23 10/19/23 History Calcium Carbonate [Tums] 3,000 mg PO QID 09/24/23 10/19/23 History Rosuvastatin [Crestor] 20 mg PO HS 09/24/23 10/19/23 History guaiFENesin-Coden 100-10MG/5ML 10 ml PO Q6HR PRN #120 ml 10/06/23 10/19/23 Rx [Robitussin AC] Loperamide [Imodium] 2 mg PO DAILY PRN 10/16/23 10/19/23 History Midodrine [ProAmatine] 10 mg PO TID PRN 10/16/23 10/19/23 History hydrALAZINE HCL 25 mg PO BID PRN 10/16/23 10/19/23 History Lenalidomide [Revlimid] 2.5 mg PO DIRECTED 10/17/23 10/19/23 History HYDROcodone/APAP 5-325MG [[place] 1 tab PO Q6HR PRN 3 Days #6 tab 10/18/23 10/19/23 Rx 5-325] Allergies Allergy/AdvReac Type Severity Reaction Status Date / Time No Known Allergies Allergy Verified 10/19/23 09:39 Surgical - Exam Vital Signs Pulse Resp BP Pulse Ox 82 18 97/60 96 10/18/23 23:06 10/18/23 23:06 10/18/23 23:06 10/18/23 23:06 Results - Labs 10/21/23 10:39 10/21/23 10:39 Abnormal Lab Results - Last 24 Hours (Table) 10/21/23 Range/Units 11:20 POC Glucose (mg/dL) 149 H (70-110) mg/dL
--- NOTE | 2023-10-21 14:02 | P.PN ---
Subjective patient is seen for follow-up for end-stage renal disease. Scheduled for thoracentesis today. No significant shortness of breath. Status post UF of 1.5 L on 10/19/2023. maintained on midodrine. Objective - Vital Signs Vital signs: Vital Signs Temp 97.2 F L 10/21/23 12:08 Pulse 76 10/21/23 13:47 Resp 18 10/21/23 13:47 BP 107/58 10/21/23 12:08 Pulse Ox 98 10/21/23 12:08 FiO2 Intake & Output 10/20/23 10/21/23 10/21/23 18:59 06:59 18:59 Intake Total 660 Balance 660 Weight 86.5 kg Intake: Oral 660 Other: Voiding Method Urinal Urinal # Bowel Movements 1 - Exam patient is awake, comfortable, no acute distress. Examination of the heart S1 and S2 Examination of the lungs decreased breath sounds at the bases particularly on the right side. Abdomen is soft nontender Examination of lower extremity shows edema 1+ bilaterally [employer] D[employer]ING SERV[employer] exam grossly intact - Labs CBC & Chem 7: 10/21/23 10:39 10/21/23 10:39 Labs: Abnormal Lab Results - Last 24 Hours (Table) 10/21/23 10/21/23 10/21/23 Range/Units 10:39 10:39 11:20 RBC 2.03 L (4.30-5.90) m/uL Hgb 7.4 L (13.0-17.5) gm/dL Hct 22.5 L (39.0-53.0) % MCV 110.8 H (80.0-100.0) fL MCH 36.3 H (25.0-35.0) pg RDW 18.5 H (11.5-15.5) % Plt Count 102 L (150-450) k/uL Lymphocytes # 0.2 L (1.0-4.8) k/uL Macrocytosis Marked A Sodium 130 L (137-145) mmol/L Chloride 97 L (98-107) mmol/L BUN 39 H (9-20) mg/dL Creatinine 5.42 H (0.66-1.25) mg/dL Glucose 151 H (74-99) mg/dL POC Glucose (mg/dL) 149 H (70-110) mg/dL AST 153 H (17-59) U/L Total Protein 4.2 L (6.3-8.2) g/dL Albumin 2.6 L (3.5-5.0) g/dL Assessment and Plan Assessment: 1. End-stage renal disease on hemodialysis on a Saturday schedule. 2. Recurrent Right pleural effusion status post previous thoracentesis on 09/27/2023 during last hospitalization. 3. syncope secondary to hypotension 4. Coronary artery disease with history of coronary stent 5. Chronic systolic CHF with EF of 45-50% Plan: hemodialysis in a.m. Increase UF as tolerated. continue with midodrine. Agree with plans for right thoracentesis. History of right thoracentesis on 09/27/2023 with UF of 1.5 L.
--- NOTE | 2023-10-21 15:51 | P.CNPUL ---
History of Present Illness Consult date: 10/21/23 Reason for consult: pleural effusion History of present illness: I was asked to evaluate this patient regarding a recurrent right-sided pleural effusion. The patient is known to have coronary artery disease with previous stenting of the lower OM, CHF with an ejection fraction of 45% along with end- stage renal disease and currently is undergoing hemodialysis 3 times a week TTS. The patient also has multiple myeloma with end-stage renal disease. He is currently off Revlimid. The patient was in the hospital during his last hospitalization, the patient underwent thoracentesis of the right lung. The fluid was exudative and the fluid cytology was essentially negative for malignancy. The patient improved and he was discharged home to be readmitted with episodes of low blood pressure and syncope/presyncope. No chest pain. No angina. No palpitation. Occasional cough with no significant sputum production. The patient is maintained on metoprolol on outpatient basis a dose of 25 mg p.o. twice a day. He is also on midodrine for episodic hypotension at a dose of 10 mg p.o. 3 times daily. He is also on hydralazine 25 mg twice da job. His blood work shows a WBC count 3.9, he was 7.4 and platelet count of 102. BUN is 39 with a creatinine of 5.4 and sodium is at 130. Troponin levels were 0.080.1 and 0.1 respectively x 3. The patient is currently on 2 L of oxygen by nasal cannula with a pulse ox of 98%. Chest x-ray revealed a moderate-sized right-sided pleural effusion along with cardiomegaly. Left lung essentially clear. The patient is not having any significant respiratory distress. I was consulted to evaluate this patient for thoracentesis. The patient has no significant shortness of breath at rest. He is status post ultrafiltration of 1.5 L that was done on 10/19/2023. He is undergoing dialysis tomorrow. His blood pressure is stable for now. Review of Systems Constitutional: Reports daytime sleepiness, Reports fatigue, Reports weakness Eyes: denies as per HPI, denies blurred vision, denies bulging eye, denies decreased vision, denies diplopia, denies discharge, denies dry eye, denies irritation, denies itching, denies pain, denies photophobia, denies loss of peripheral vision, denies loss of vision, denies tunnel vision/blind spots Ears: deny: decreased hearing, ear discharge, earache, tinnitus Ears, nose, mouth and throat: Reports as per HPI Breasts: absent: as per HPI, gynecomastia Cardiovascular: Reports decreased exercise tolerance, Reports dyspnea on exertion Respiratory: Reports as per HPI, Reports cough, Reports dyspnea Gastrointestinal: Reports as per HPI Genitourinary: Reports as per HPI (Patient is currently on hemodialysis) Musculoskeletal: Reports as per HPI, Reports gait dysfunction, Reports muscle weakness Musculoskeletal: absent: ankle pain, ankle stiffness, ankle swelling, as per HPI, elbow pain, elbow stiffness, elbow swelling, foot pain, foot stiffness, foot swelling, hand pain, hand stiffness, hand swelling, hip pain, hip stiffness, hip swelling, knee pain, knee stiffness, knee swelling, shoulder pain, shoulder stiffness, shoulder swelling, wrist pain, wrist stiffness, wrist swelling Integumentary: Reports as per HPI Neurological: Reports gait dysfunction, Reports weakness Psychiatric: Reports as per HPI Endocrine: Reports fatigue Hematologic/Lymphatic: Reports as per HPI Allergic/Immunologic: Reports as per HPI Past Medical History Past Medical History: Cancer, Dialysis, GERD/Reflux, Hyperlipidemia, Hypertension, Osteoarthritis (OA), Prostate Disorder, Renal Disease Additional Past Medical History / Comment(s): multiple myeloma, enlarged prostate, kidney stones, diverticulosis, hiatal hernia, hemodialysis august-October 2016, CAPD since October 2016-CURRENTLY ON HEMODIALYSIS WAITING FOR NEW PD CATHETER, orthostatic hypotension, neuropathy, leaky mitral valve/weak left ventricle of heart, pt is on oral CHEMO Revlamid Saturday and . History of Any Multi-Drug Resistant Organisms: None Reported Past Surgical History: Heart Catheterization, Heart Catheterization With Stent Additional Past Surgical History / Comment(s): lithotripsy/laser, fatty tumor removed from right chest, colonoscopy, PERMA cath rt upper chest- removed 2016, hemodialysis cath august-October 27, bilateral cataracts removed, CAPD cath x2 with removal Past Anesthesia/Blood Transfusion Reactions: No Reported Reaction Additional Past Anesthesia/Blood Transfusion Reaction / Comment(s): previous blood transfusion without any reactions Date of Last Stent Placement:: 09/03/23 Past Psychological History: No Psychological Hx Reported Additional Psychological History / Comment(s): . Smoking Status: Never smoker Past Alcohol Use History: Occasional Past Drug Use History: None Reported - Past Family History Sister(s) Family Medical History: Cancer Father Family Medical History: Cancer, Deep Vein Thrombosis (DVT) Mother Family Medical History: Dementia Additional Family Medical History / Comment(s): from alzheimer's Brother(s) Family Medical History: Diabetes Mellitus Medications and Allergies Home Medications Medication Instructions Recorded Confirmed Type Omeprazole [PriLOSEC] 20 mg PO DAILY 08/18/16 10/19/23 History valACYclovir HCL [Valtrex] 500 mg PO DAILY 08/18/16 10/19/23 History Finasteride [Proscar] 5 mg PO HS 03/30/18 10/19/23 History Metoprolol Tartrate [Lopressor] 25 mg PO BID 03/30/18 10/19/23 History Pregabalin [Lyrica] 75 mg PO BID 03/30/18 10/19/23 History Pro-Renal + Vit D (Unknown) 1 tab PO DAILY 03/30/18 10/19/23 History Ergocalciferol (Vitamin D2) 1,250 mcg PO SA 05/21/23 10/19/23 History [Drisdol (50,000 Iu)] Magnesium Oxide [Mag-Ox] 400 mg PO DAILY 05/21/23 10/19/23 History Micera 50mcg/0.3ml 50 mcg INJ Q14D 05/21/23 10/19/23 History Sodium Bicarbonate Tab 650 mg PO BID 05/21/23 10/19/23 History Tamsulosin [Flomax] 0.4 mg PO HS 05/21/23 10/19/23 History Cyanocobalamin (Vitamin B-12) 1,000 mcg PO DAILY 06/18/23 10/19/23 History [Vitamin B-12] Aspirin [Adult Low Dose Aspirin EC] 81 mg PO DAILY 06/24/23 10/19/23 History Clopidogrel [Plavix] 75 mg PO DAILY #90 tab 09/04/23 10/19/23 Rx Nitroglycerin Sl Tabs [Nitrostat] 0.4 mg SUBLINGUAL Q5M PRN #25 tab 09/04/23 10/19/23 Rx Calcium Carbonate [Tums] 1,000 mg PO W/BRKFST 09/24/23 10/19/23 History Calcium Carbonate [Tums] 3,000 mg PO QID 09/24/23 10/19/23 History Rosuvastatin [Crestor] 20 mg PO HS 09/24/23 10/19/23 History guaiFENesin-Coden 100-10MG/5ML 10 ml PO Q6HR PRN #120 ml 10/06/23 10/19/23 Rx [Robitussin AC] Loperamide [Imodium] 2 mg PO DAILY PRN 10/16/23 10/19/23 History Midodrine [ProAmatine] 10 mg PO TID PRN 10/16/23 10/19/23 History hydrALAZINE HCL 25 mg PO BID PRN 10/16/23 10/19/23 History Lenalidomide [Revlimid] 2.5 mg PO DIRECTED 10/17/23 10/19/23 History HYDROcodone/APAP 5-325MG [[place] 1 tab PO Q6HR PRN 3 Days #6 tab 10/18/23 10/19/23 Rx 5-325] Allergies Allergy/AdvReac Type Severity Reaction Status Date / Time No Known Allergies Allergy Verified 10/19/23 09:39 Physical Exam Vitals: Vital Signs Temp Pulse Pulse Resp BP BP Pulse Ox 10/21/23 13:47 76 18 10/21/23 12:08 97.2 F L 76 18 107/58 98 10/21/23 09:25 84 18 10/21/23 09:23 97.7 F 84 18 102/56 99 10/21/23 03:54 97.7 F 79 18 117/65 99 10/21/23 02:11 98.1 F 86 18 130/69 99 10/21/23 01:16 71 19 118/62 99 10/20/23 22:40 76 18 111/58 100 10/20/23 21:15 90 16 123/68 97 10/20/23 18:54 82 16 151/98 99 Intake and Output 10/21/23 10/21/23 10/21/23 06:59 14:59 22:59 Intake Total 660 Balance 660 Intake: Oral 660 Other: Voiding Method Urinal Urinal # Voids 0 # Bowel Movements 1 0 Weight 86.5 kg 86.5 kg No acute distress, oriented 3. Currently on 2 L of oxygen by nasal cannula with pulse ox of 98% HEENT examination is grossly unremarkable. Mucous membranes are moist. No oral lesions. Neck supple. Full range of motion. No adenopathy thyromegaly or neck vein distention. Cardiovascular examination reveals regular rhythm rate. S1-S2 normal. No S3 or S4. No discernible murmur noted. Heart sounds distant. Lungs reveal diminished breath sound the right lung base along with dullness to percussion. Minimal dullness on percussion. Left lung is clear. No crackles. No wheezes. Abdomen soft bowel sounds are heard. No masses or tenderness. Extremities are intact. No cyanosis clubbing or edema. Skin is without rash or lesion. Neurologic examination is brief but nonfocal. Results - Laboratory Findings CBC and BMP: 10/21/23 10:39 10/21/23 10:39 PT/INR, D-dimer PT 11.0 sec (10.0-12.5) 10/18/23 23:26 INR 1.0 (<1.2) 10/18/23 23:26 Abnormal lab findings: Abnormal Labs 10/18/23 10/18/23 10/18/23 23:26 23:26 23:26 WBC RBC 2.28 L Hgb 8.2 L Hct 24.6 L MCV 107.6 H MCH 36.1 H RDW 17.9 H Plt Count 109 L Lymphocytes # 0.4 L Macrocytosis Marked A APTT 21.4 L Sodium 134 L Chloride Carbon Dioxide BUN 42 H Creatinine 4.48 H Glucose POC Glucose (mg/dL) Iron TIBC Transferrin Ferritin AST 60 H Troponin I Total Protein 4.7 L Albumin 3.0 L 10/18/23 10/19/23 10/19/23 23:26 04:02 07:57 WBC RBC Hgb Hct MCV MCH RDW Plt Count Lymphocytes # Macrocytosis APTT Sodium Chloride Carbon Dioxide BUN Creatinine Glucose POC Glucose (mg/dL) Iron TIBC Transferrin Ferritin AST Troponin I 0.084 H* 0.132 H* 0.168 H* Total Protein Albumin 10/19/23 10/20/23 10/20/23 07:57 07:56 07:56 WBC 3.2 L RBC 2.17 L Hgb 7.7 L Hct 23.7 L MCV 109.3 H MCH 35.7 H RDW 18.6 H Plt Count 89 L Lymphocytes # 0.4 L Macrocytosis Marked A APTT Sodium 135 L Chloride Carbon Dioxide 32 H BUN 26 H Creatinine 4.04 H Glucose POC Glucose (mg/dL) Iron 39 L TIBC 203 L Transferrin 145.0 L Ferritin 1482.0 H AST Troponin I Total Protein Albumin 10/21/23 10/21/23 10/21/23 10:39 10:39 11:20 WBC RBC 2.03 L Hgb 7.4 L Hct 22.5 L MCV 110.8 H MCH 36.3 H RDW 18.5 H Plt Count 102 L Lymphocytes # 0.2 L Macrocytosis Marked A APTT Sodium 130 L Chloride 97 L Carbon Dioxide BUN 39 H Creatinine 5.42 H Glucose 151 H POC Glucose (mg/dL) 149 H Iron TIBC Transferrin Ferritin AST 153 H Troponin I Total Protein 4.2 L Albumin 2.6 L Assessment and Plan Plan: Acute on chronic shortness of breath, which is felt to be multifactorial. The pleural effusion is probably contributing to his shortness of breath. In addition, the patient has multiple comorbidities including chronic anemia, end- stage renal disease, episodes of hypotension and coronary artery disease and multiple myeloma and is quite debilitated and having generalized debility and weakness. As such, I feel that his shortness of breath is multifactorial. Is currently on 2 L of oxygen by nasal cannula. Note that the patient had a previous v a right-sided thoracentesis was done on 09/27/2023. A total of 1.5 L of fluid was aspirated. Fluid cytology was negative for malignancy.. The fluid is an exudate based on the protein criteria, and the pleural fluid cytology was negative for malignancy. Follow-up CAT scan of the chest showed a small residual right-sided pleural effusion. The most recent chest x-ray shows a recurrent moderate-sized right-sided pleural effusion. History of right-sided pleural effusion postthoracentesis, exudative, pleural fluid cytology is negative. Episodic hypotension with symptoms of presyncope/syncope Chronic persistent cough End-stage renal disease, previously maintained on peritoneal dialysis, transitioned to hemodialysis, on a Saturday, , Saturday schedule. The patient underwent hemodialysis on 10/19/2023 with a total of 1.5 L of ultrafiltration Episodic hypotension, maintained on metoprolol hydralazine and midodrine Elevated troponins, rule out an non-ST elevation HI. Coronary artery disease with recent history of PCI/stenting of the OM1 on 09/03/2023. History of hyperlipidemia. History of hypertension. History of multiple myeloma. Anemia of chronic disease. Chronic thrombocytopenia. History of BPH. History of GERD without esophagitis. Plan Keep oxygen 2 L/min nasal cannula Cardiology consultation Nephrology consultation Hold metoprolol and hydralazine Will plan for another diagnostic/therapeutic thoracentesis of right lung.
[2023-10-21 16:26] LABS: Glucose,Whole Blood 119 mg/dL (70-110)
[2023-10-21 20:27] LABS: Glucose,Whole Blood 120 mg/dL (70-110)
[2023-10-22 08:03] LABS: ALT <6 U/L (4-49); AST 104 U/L (17-59); African American GFR (CKD) 8 (>60 ml/min/1.73 sqM); Albumin 2.3 g/dL (3.5-5.0); Alkaline Phosphatase 83 U/L (38-126); Anion Gap 4 mmol/L; Blood Urea Nitrogen 39 mg/dL (9-20); Calcium 8.4 mg/dL (8.4-10.2); Carbon Dioxide 29 mmol/L (22-30); Chloride 97 mmol/L (98-107); Glucose 90 mg/dL (74-99); Non-African American GFR(CKD) 7 (>60 ml/min/1.73 sqM); Potassium 3.2 mmol/L (3.5-5.1); Sodium 130 mmol/L (137-145); Total Bilirubin 0.7 mg/dL (0.2-1.3); Total Protein 3.9 g/dL (6.3-8.2)
[2023-10-22 08:08] LABS: Anisocytosis Slight; Basophils % (A) 0 %; Eosinophils # (A) 0.1 k/uL (0-0.7); Eosinophils % (A) 2 %; HCT 20.2 % (39.0-53.0); Lymphocytes # (A) 0.3 k/uL (1.0-4.8); Lymphocytes % (A) 11 %; MCH 36.1 pg (25.0-35.0); MCHC 32.8 g/dL (31.0-37.0); Macrocytosis Marked; Mean Platelet Volume 9.6; Monocytes # (A) 0.3 k/uL (0-1.0); Monocytes % (A) 11 %; Neutrophils # (A) 2.1 k/uL (1.3-7.7); Neutrophils % (A) 71 %; RBC 1.84 m/uL (4.30-5.90); RDW 18.8 % (11.5-15.5); WBC 2.9 k/uL (3.8-10.6)
[2023-10-22 08:09] LABS: Platelet Count 92 k/uL (150-450)
[2023-10-22 08:11] LABS: HGB 6.6 gm/dL (13.0-17.5)
--- NOTE | 2023-10-22 10:18 | P.PN ---
Subjective Progress Note Date: 10/22/23 Dean Earl, is a 77 year old male who presented to [facility] emergency room with a chief complaint of generalized weakness and episode of syncope He was evaluated in the emergency room vital examination on presentation revealed pulse 82 respiration 18 blood pressure 97/60 pulse ox 96% on 4 L nasal cannula Laboratory data reveals a white blood count of 5.3 hemoglobin 8.2 platelet count 109 BUN 42 creatinine 4.48 troponin level was elevated at 0.084 [place] [id number] Testing in the emergency room revealed chest x-ray revealed cardiomegaly with moderate to large right pleural effusion, EKG revealed normal sinus rhythm normal EKG Patient was admitted to medical floor for further evaluation and treatment Past medical history is significant for end-stage renal disease on hemodialysis, patient was maintained on peritoneal dialysis up till recently, history of hypertension, history of hyperlipidemia, history of coronary artery disease with previous history of angioplasty and stent placement, history of right pleural effusion with recent thoracentesis, history of multiple myeloma On 10/20/2023 patient was seen and examined on the medical floor he is alert and oriented x 3 in no apparent distress there is no fever or chills no headache or dizziness no chest pain no shortness of breath no cough no nausea or vomiting no abdominal pain no diarrhea no blood in the stools no burning with urination no frequency or urgency and no hematuria, patient is complaining of severe constip ation and asking for enemas, otherwise he denies any complaints at this time. Cardiology consult reviewed, restart dual antiplatelet therapy with aspirin and Plavix, and hold metoprolol at this time, will continue to follow closely. On 10/21/2023 patient was seen and examined on the medical floor, he is alert and oriented x 3 in no apparent distress, he is complaining of generalized fatigue and weakness, complaining of shortness of breath with any activity , and complaining of constipation, otherwise he denies any complaints there is no fever or chills no headache or dizziness, no chest pain no palpitation no cough no nausea or vomiting no abdominal pain no diarrhea no blood in the stools no burning with urination no frequency or urgency and no hematuria. He is maintained on hemodialysis. Vital exam reveals a temperature of 97.2 pulse 76 respiration 18 blood pressure 107/54 pulse ox 98% on 2 L nasal cannula . his white blood count today is 3.9 hemoglobin 7.4 platelet count 102 sodium 130 potassium 3.7 chloride 97 BUN 39 creatinine 5.42 On 10/22/2023 patient is alert and oriented 3 currently getting hemodialysis. Patient reports he had bowel movement yesterday. Patient feels improved. According to pulmonary services plans for thoracentesis today. Current vital signs of 97.7, heart rate 83, respiratory rate 16, blood pressure 114/62 with a pulse ox of 98% on 2 L Objective - Vital Signs Vital signs: Vital Signs Temp 97.7 F 10/22/23 08:05 Pulse 83 10/22/23 08:05 Resp 16 10/22/23 08:05 BP 114/62 10/22/23 08:05 Pulse Ox 98 10/22/23 08:05 FiO2 Intake & Output 10/21/23 10/22/23 10/22/23 18:59 06:59 18:59 Intake Total 778 Balance 778 Weight 86.5 kg 88.5 kg Intake: Oral 778 Other: Voiding Method Urinal Urinal Urinal # Voids 0 # Bowel Movements 1 1 - Exam In general patient is alert and oriented x 3 in no distress HEENT head normocephalic and atraumatic Neck is supple no JVD no goiter no lymphadenopathy no carotid bruit Chest examination is clear to auscultation no crackles no wheezing Cardiac exam reveals regular heart sounds S1 and S2 no gallops no murmurs Abdomen is soft nontender no organomegaly with normal bowel sounds Extremity exam reveals no edema no cyanosis or clubbing Neurological examination reveals no gross focal deficits - Labs CBC & Chem 7: 10/22/23 05:41 10/22/23 05:41 Labs: Abnormal Lab Results - Last 24 Hours (Table) 10/21/23 10/21/23 10/21/23 Range/Units 10:39 10:39 11:20 WBC (3.8-10.6) k/uL RBC 2.03 L (4.30-5.90) m/uL Hgb 7.4 L (13.0-17.5) gm/dL Hct 22.5 L (39.0-53.0) % MCV 110.8 H (80.0-100.0) fL MCH 36.3 H (25.0-35.0) pg RDW 18.5 H (11.5-15.5) % Plt Count 102 L (150-450) k/uL Lymphocytes # 0.2 L (1.0-4.8) k/uL Macrocytosis Marked A Sodium 130 L (137-145) mmol/L Potassium (3.5-5.1) mmol/L Chloride 97 L (98-107) mmol/L BUN 39 H (9-20) mg/dL Creatinine 5.42 H (0.66-1.25) mg/dL Glucose 151 H (74-99) mg/dL POC Glucose (mg/dL) 149 H (70-110) mg/dL AST 153 H (17-59) U/L Total Protein 4.2 L (6.3-8.2) g/dL Albumin 2.6 L (3.5-5.0) g/dL 10/21/23 10/21/23 10/22/23 Range/Units 16:24 20:23 05:41 WBC 2.9 L (3.8-10.6) k/uL RBC 1.84 L (4.30-5.90) m/uL Hgb 6.6 L* (13.0-17.5) gm/dL Hct 20.2 L (39.0-53.0) % MCV 110.0 H (80.0-100.0) fL MCH 36.1 H (25.0-35.0) pg RDW 18.8 H (11.5-15.5) % Plt Count 92 L (150-450) k/uL Lymphocytes # 0.3 L (1.0-4.8) k/uL Macrocytosis Marked A Sodium (137-145) mmol/L Potassium (3.5-5.1) mmol/L Chloride (98-107) mmol/L BUN (9-20) mg/dL Creatinine (0.66-1.25) mg/dL Glucose (74-99) mg/dL POC Glucose (mg/dL) 119 H 120 H (70-110) mg/dL AST (17-59) U/L Total Protein (6.3-8.2) g/dL Albumin (3.5-5.0) g/dL 10/22/23 Range/Units 05:41 WBC (3.8-10.6) k/uL RBC (4.30-5.90) m/uL Hgb (13.0-17.5) gm/dL Hct (39.0-53.0) % MCV (80.0-100.0) fL MCH (25.0-35.0) pg RDW (11.5-15.5) % Plt Count (150-450) k/uL Lymphocytes # (1.0-4.8) k/uL Macrocytosis Sodium 130 L (137-145) mmol/L Potassium 3.2 L (3.5-5.1) mmol/L Chloride 97 L (98-107) mmol/L BUN 39 H (9-20) mg/dL Creatinine 7.04 H* (0.66-1.25) mg/dL Glucose (74-99) mg/dL POC Glucose (mg/dL) (70-110) mg/dL AST 104 H (17-59) U/L Total Protein 3.9 L (6.3-8.2) g/dL Albumin 2.3 L (3.5-5.0) g/dL Assessment and Plan Plan: Syncope, with orthostatic hypotension Elevated troponin level right pleural effusion, with recent history of thoracentesis Orthostatic hypotension End-stage renal disease on hemodialysis Anemia of chronic kidney disease. Chronic systolic CHF Coronary disease with cardiac stenting. Underlying history of multiple myeloma At this time patient was seen and examined in the emergency room Home medications reviewed and reordered Cardiology and nephrology consultation requested in the emergency room Will add pulmonary consultation for possible thoracentesis Will follow closely during this admission
--- NOTE | 2023-10-22 12:00 | P.PN ---
Subjective HISTORY OF PRESENT ILLNESS: The patient is a 77-year-old gentleman who is known to our service from before with a past medical history significant for CAD with prior stenting of OM as well as cardiomyopathy with a EF around 45% and also end-stage renal disease on dialysis as well as history of orthostatic hypotension and multiple myeloma and multiple comorbid conditions was admitted to the emergency department after he lost his consciousness at home. The patient was in his usual state of health till yesterday when he went to the hospital and had his dialysis catheter taken out. It was peritoneal dialysis catheter. Currently he is on hemodialysis and the last hemodialysis was performed on . He was in his usual state of health till yesterday when he walked to the bathroom and subsequently his found him on the floor after he passed out. No prodromal symptoms. She checked his pressure and the pressure was low and also she checked his pulse oxygen saturation and that came in to be low. Ambulance was called and the patient was brought to the hospital. He continues to be having marginally low blood pressure. No chest pain or chest discomfort. He underwent further evaluation including an EKG showed sinus mechanism with nonspecific changes and chest x-ray showed moderate to large right pleural effusion but he is known to have pleural effusion before and he underwent pleurocentesis in the past. At home and the only medication has been taken which potential lowering the pressure is metoprolol. Beside that he was receiving all his medications including dual antiplatelet therapy. The examination is remarkable for regular rhythm with a distant heart sounds and diminished breathing sounds on the right side and no edema was noted in the lower extremities October 20, 2023 The patient was seen and evaluated this morning. He did not have any more episode of change in mental status or syncope but he has not been out of the bed. He has been struggling with constipation. No symptoms of chest pain or chest discomfort. The dose of midodrine has increased yesterday by the nephrology service. The examination is remarkable for stable vital signs with regular rate and rhythm and diminished breathing sounds bilaterally and no edema was noted. October 21, 2023 Patient examined this morning at the bedside. Patient currently denies any chest pain or pressure. He denies any shortness of breath. Patient complains of being constipated this morning. He denies any abdominal pain. Patient's vital signs are stable. October 22, 2023 Patient examined this morning the bedside. He is currently undergoing hemodia lysis. He denies chest pain or pressure. Denies shortness of breath. Systolic blood pressure around 100. PHYSICAL EXAM: VITAL SIGNS: Reviewed. GENERAL: Well-developed in no acute distress. NECK: Supple. No JVD or thyromegaly LUNGS: Respirations even and unlabored. Lungs with decreased breath sounds in right lower lobe. HEART: Regular rate and rhythm. S1 and S2 heard. EXTREMITIES: Normal range of motion. No clubbing or cyanosis. Peripheral pulses intact. No lower extremity edema ASSESSMENT: Orthostatic hypotension Syncope secondary to orthostatic hypotension Coronary artery disease with recent stenting of OM1, September 03, 2023 End-stage renal disease on hemodialysis Abnormal troponin secondary to poor renal clearance, no evidence of acute coronary syndrome/Type I [place] Moderate to large right pleural effusion with Mild ischemic cardiomyopathy, ejection fraction 45% Pancytopenia History of multiple myeloma Constipation PLAN: Continue current dose of midodrine Continue to hold metoprolol Continue to monitor blood pressure Continue dual antiplatelet therapy with aspirin and Plavix due to recent stenting in August 2023 We will sign off. Please reconsult if needed. Nurse practitioner note has been reviewed by physician. Signing provider agrees with the documented findings, assessment, and plan of care documented by TRIAL JUDGE as a scribe. Objective - Vital Signs Vital signs: Vital Signs Temp 97.7 F 10/22/23 08:05 Pulse 71 10/22/23 11:39 Resp 16 10/22/23 11:39 BP 112/62 10/22/23 11:39 Pulse Ox 100 10/22/23 11:39 FiO2 Intake & Output 10/21/23 10/22/23 10/22/23 18:59 06:59 18:59 Intake Total 778 240 Balance 778 240 Weight 86.5 kg 88.5 kg Intake: Oral 778 240 Other: Voiding Method Urinal Urinal Urinal # Voids 0 # Bowel Movements 1 1 - Labs CBC & Chem 7: 10/22/23 05:41 10/22/23 05:41 Labs: Abnormal Lab Results - Last 24 Hours (Table) 10/21/23 10/21/23 10/21/23 Range/Units 10:39 16:24 20:23 WBC (3.8-10.6) k/uL RBC (4.30-5.90) m/uL Hgb (13.0-17.5) gm/dL Hct (39.0-53.0) % MCV (80.0-100.0) fL MCH (25.0-35.0) pg RDW (11.5-15.5) % Plt Count (150-450) k/uL Lymphocytes # (1.0-4.8) k/uL Macrocytosis Sodium 130 L (137-145) mmol/L Potassium (3.5-5.1) mmol/L Chloride 97 L (98-107) mmol/L BUN 39 H (9-20) mg/dL Creatinine 5.42 H (0.66-1.25) mg/dL Glucose 151 H (74-99) mg/dL POC Glucose (mg/dL) 119 H 120 H (70-110) mg/dL AST 153 H (17-59) U/L Total Protein 4.2 L (6.3-8.2) g/dL Albumin 2.6 L (3.5-5.0) g/dL 10/22/23 10/22/23 Range/Units 05:41 05:41 WBC 2.9 L (3.8-10.6) k/uL RBC 1.84 L (4.30-5.90) m/uL Hgb 6.6 L* (13.0-17.5) gm/dL Hct 20.2 L (39.0-53.0) % MCV 110.0 H (80.0-100.0) fL MCH 36.1 H (25.0-35.0) pg RDW 18.8 H (11.5-15.5) % Plt Count 92 L (150-450) k/uL Lymphocytes # 0.3 L (1.0-4.8) k/uL Macrocytosis Marked A Sodium 130 L (137-145) mmol/L Potassium 3.2 L (3.5-5.1) mmol/L Chloride 97 L (98-107) mmol/L BUN 39 H (9-20) mg/dL Creatinine 7.04 H* (0.66-1.25) mg/dL Glucose (74-99) mg/dL POC Glucose (mg/dL) (70-110) mg/dL AST 104 H (17-59) U/L Total Protein 3.9 L (6.3-8.2) g/dL Albumin 2.3 L (3.5-5.0) g/dL
--- NOTE | 2023-10-22 12:24 | P.PN ---
Subjective patient is seen for follow-up for end-stage renal disease. patient is seen on hemodialysis. Plans for thoracentesis today. hemoglobin noted at 6.6 g/dL. No active bleeding noted. No significant shortness of breath. maintained on midodrine. Objective - Vital Signs Vital signs: Vital Signs Temp 97.7 F 10/22/23 08:05 Pulse 71 10/22/23 11:39 Resp 16 10/22/23 11:39 BP 112/62 10/22/23 11:39 Pulse Ox 100 10/22/23 11:39 FiO2 Intake & Output 10/21/23 10/22/23 10/22/23 18:59 06:59 18:59 Intake Total 778 240 Balance 778 240 Weight 86.5 kg 88.5 kg Intake: Oral 778 240 Other: Voiding Method Urinal Urinal Urinal # Voids 0 # Bowel Movements 1 1 - Exam patient is awake, comfortable, no acute distress. Examination of the heart S1 and S2 Examination of the lungs decreased breath sounds at the bases particularly on the right side. Abdomen is soft nontender Examination of lower extremity shows edema 1+ bilaterally [employer] REPA[employer]ER exam grossly intact - Labs CBC & Chem 7: 10/22/23 05:41 10/22/23 05:41 Labs: Abnormal Lab Results - Last 24 Hours (Table) 10/21/23 10/21/23 10/22/23 Range/Units 16:24 20:23 05:41 WBC 2.9 L (3.8-10.6) k/uL RBC 1.84 L (4.30-5.90) m/uL Hgb 6.6 L* (13.0-17.5) gm/dL Hct 20.2 L (39.0-53.0) % MCV 110.0 H (80.0-100.0) fL MCH 36.1 H (25.0-35.0) pg RDW 18.8 H (11.5-15.5) % Plt Count 92 L (150-450) k/uL Lymphocytes # 0.3 L (1.0-4.8) k/uL Macrocytosis Marked A Sodium (137-145) mmol/L Potassium (3.5-5.1) mmol/L Chloride (98-107) mmol/L BUN (9-20) mg/dL Creatinine (0.66-1.25) mg/dL POC Glucose (mg/dL) 119 H 120 H (70-110) mg/dL AST (17-59) U/L Total Protein (6.3-8.2) g/dL Albumin (3.5-5.0) g/dL 10/22/23 Range/Units 05:41 WBC (3.8-10.6) k/uL RBC (4.30-5.90) m/uL Hgb (13.0-17.5) gm/dL Hct (39.0-53.0) % MCV (80.0-100.0) fL MCH (25.0-35.0) pg RDW (11.5-15.5) % Plt Count (150-450) k/uL Lymphocytes # (1.0-4.8) k/uL Macrocytosis Sodium 130 L (137-145) mmol/L Potassium 3.2 L (3.5-5.1) mmol/L Chloride 97 L (98-107) mmol/L BUN 39 H (9-20) mg/dL Creatinine 7.04 H* (0.66-1.25) mg/dL POC Glucose (mg/dL) (70-110) mg/dL AST 104 H (17-59) U/L Total Protein 3.9 L (6.3-8.2) g/dL Albumin 2.3 L (3.5-5.0) g/dL Assessment and Plan Assessment: 1. End-stage renal disease on hemodialysis on a Saturday schedule. 2. Recurrent Right pleural effusion status post previous thoracentesis on 09/10 during last hospitalization. 3. syncope secondary to hypotension 4. Coronary artery disease with history of coronary stent 5. Chronic systolic CHF with EF of 45-50% 6. Anemia with significant drop in hemoglobin. No active bleeding noted. Patient is maintained on aspirin and the dose will be increased. Transfuse 1 unit packed RBCs today Plan: hemodialysis today. Transfuse 1 unit packed RBC.'s Increase Aranesp continue with midodrine. Replace potassium Agree with plans for right thoracentesis. History of right thoracentesis on 09/27/2023 with UF of 1.5 L.
--- NOTE | 2023-10-22 12:29 | P.PN ---
Subjective Progress Note Date: 10/22/23 I was asked to evaluate this patient regarding a recurrent right-sided pleural effusion. The patient is known to have coronary artery disease with previous stenting of the lower OM, CHF with an ejection fraction of 45% along with end- stage renal disease and currently is undergoing hemodialysis 3 times a week TTS. The patient also has multiple myeloma with end-stage renal disease. He is currently off Revlimid. The patient was in the hospital during his last hospitalization, the patient underwent thoracentesis of the right lung. The fluid was exudative and the fluid cytology was essentially negative for malignancy. The patient improved and he was discharged home to be readmitted with episodes of low blood pressure and syncope/presyncope. No chest pain. No angina. No palpitation. Occasional cough with no significant sputum production. The patient is maintained on metoprolol on outpatient basis a dose of 25 mg p.o. twice a day. He is also on midodrine for episodic hypotension at a dose of 10 mg p.o. 3 times daily. He is also on hydralazine 25 mg twice daily. His blood work shows a WBC count 3.9, he was 7.4 and platelet count of 102. BUN is 39 with a creatinine of 5.4 and sodium is at 130. Troponin levels were 0.080.1 and 0.1 respectively x 3. The patient is currently on 2 L of oxygen by nasal cannula with a pulse ox of 98%. Chest x-ray revealed a moderate-sized right-sided pleural effusion along with cardiomegaly. Left lung essentially clear. The patient is not having any significant respiratory distress. I was consulted to evaluate this patient for thoracentesis. The patient has no significant shortness of breath at rest. He is status post ultrafiltration of 1.5 L that was done on 10/19/2023. He is undergoing dialysis tomorrow. His blood pressure is stable for now. 10/22/2023, the patient is being seen for a follow-up. The patient is currently undergoing hemodialysis this morning. He is calm and comfortable and the goal of his ultrafiltration is around 2.5 L. His blood pressure is maintained and the most recent BP is 112/62. He is on 2 L of oxygen by nasal cannula with a pulse ox of 99%. He denies having any other specific complaints. No episodes of syncope over the past 24 hours. He is known to have multiple myeloma. Hemoglobin is down to 6.6 and the patient will be given a unit of packed RBC. The white cell count is at 2.9 with [place] 9020 patient has a component of pancytopenia. Sodium is at 130, potassium 3.2, BUN 39 with a creatinine of 7.09. Stool for C. difficile has been negative. LFTs are within normal limits. No other significant events overnight. Remains on aspirin. Remains on Plavix. Remains on Lovenox 30 mg subcu for DVT prophylaxis. Remains on midodrine 10 mg p.o. 3 times daily as needed and 5 mg p.o. 3 times daily scheduled. No other significant events overnight. The patient is being seen by nephrology. While receiving unit of packed RBC and IMS was also added. Objective - Vital Signs Vital signs: Vital Signs Temp 97.7 F 10/22/23 08:05 Pulse 83 10/22/23 08:05 Resp 16 10/22/23 08:05 BP 114/62 10/22/23 08:05 Pulse Ox 98 10/22/23 08:05 FiO2 Intake & Output 10/21/23 10/22/23 10/22/23 18:59 06:59 18:59 Intake Total 778 Balance 778 Weight 86.5 kg 88.5 kg Intake: Oral 778 Other: Voiding Method Urinal Urinal Urinal # Voids 0 # Bowel Movements 1 1 - Exam No acute distress, oriented 3. Currently on 2 L of oxygen by nasal cannula with pulse ox of 98% HEENT examination is grossly unremarkable. Mucous membranes are moist. No oral lesions. Neck supple. Full range of motion. No adenopathy thyromegaly or neck vein distention. Cardiovascular examination reveals regular rhythm rate. S1-S2 normal. No S3 or S4. No discernible murmur noted. Heart sounds distant. Lungs reveal diminished breath sound the right lung base along with dullness to percussion. Minimal dullness on percussion. Left lung is clear. No crackles. No wheezes. Abdomen soft bowel sounds are heard. No masses or tenderness. Extremities are intact. No cyanosis clubbing or edema. Skin is without rash or lesion. Neurologic examination is brief but nonfocal. - Labs CBC & Chem 7: 10/22/23 05:41 10/22/23 05:41 Labs: Abnormal Lab Results - Last 24 Hours (Table) 10/21/23 10/21/23 10/21/23 Range/Units 10:39 10:39 11:20 WBC (3.8-10.6) k/uL RBC 2.03 L (4.30-5.90) m/uL Hgb 7.4 L (13.0-17.5) gm/dL Hct 22.5 L (39.0-53.0) % MCV 110.8 H (80.0-100.0) fL MCH 36.3 H (25.0-35.0) pg RDW 18.5 H (11.5-15.5) % Plt Count 102 L (150-450) k/uL Lymphocytes # 0.2 L (1.0-4.8) k/uL Macrocytosis Marked A Sodium 130 L (137-145) mmol/L Potassium (3.5-5.1) mmol/L Chloride 97 L (98-107) mmol/L BUN 39 H (9-20) mg/dL Creatinine 5.42 H (0.66-1.25) mg/dL Glucose 151 H (74-99) mg/dL POC Glucose (mg/dL) 149 H (70-110) mg/dL AST 153 H (17-59) U/L Total Protein 4.2 L (6.3-8.2) g/dL Albumin 2.6 L (3.5-5.0) g/dL 10/21/23 10/21/23 10/22/23 Range/Units 16:24 20:23 05:41 WBC 2.9 L (3.8-10.6) k/uL RBC 1.84 L (4.30-5.90) m/uL Hgb 6.6 L* (13.0-17.5) gm/dL Hct 20.2 L (39.0-53.0) % MCV 110.0 H (80.0-100.0) fL MCH 36.1 H (25.0-35.0) pg RDW 18.8 H (11.5-15.5) % Plt Count 92 L (150-450) k/uL Lymphocytes # 0.3 L (1.0-4.8) k/uL Macrocytosis Marked A Sodium (137-145) mmol/L Potassium (3.5-5.1) mmol/L Chloride (98-107) mmol/L BUN (9-20) mg/dL Creatinine (0.66-1.25) mg/dL Glucose (74-99) mg/dL POC Glucose (mg/dL) 119 H 120 H (70-110) mg/dL AST (17-59) U/L Total Protein (6.3-8.2) g/dL Albumin (3.5-5.0) g/dL 10/22/23 Range/Units 05:41 WBC (3.8-10.6) k/uL RBC (4.30-5.90) m/uL Hgb (13.0-17.5) gm/dL Hct (39.0-53.0) % MCV (80.0-100.0) fL MCH (25.0-35.0) pg RDW (11.5-15.5) % Plt Count (150-450) k/uL Lymphocytes # (1.0-4.8) k/uL Macrocytosis Sodium 130 L (137-145) mmol/L Potassium 3.2 L (3.5-5.1) mmol/L Chloride 97 L (98-107) mmol/L BUN 39 H (9-20) mg/dL Creatinine 7.04 H* (0.66-1.25) mg/dL Glucose (74-99) mg/dL POC Glucose (mg/dL) (70-110) mg/dL AST 104 H (17-59) U/L Total Protein 3.9 L (6.3-8.2) g/dL Albumin 2.3 L (3.5-5.0) g/dL Assessment and Plan Plan: Acute on chronic shortness of breath, which is felt to be multifactorial. The pleural effusion is probably contributing to his shortness of breath. In addition, the patient has multiple comorbidities including chronic anemia, end- stage renal disease, episodes of hypotension and coronary artery disease and multiple myeloma and is quite debilitated and having generalized debility and weakness. As such, I feel that his shortness of breath is multifactorial. Is currently on 2 L of oxygen by nasal cannula. Note that the patient had a previous v a right-sided thoracentesis was done on 09/27/2023. A total of 1.5 L of fluid was aspirated. Fluid cytology was negative for malignancy.. The fluid is an exudate based on the protein criteria, and the pleural fluid cytology was negative for malignancy. Follow-up CAT scan of the chest showed a small residual right-sided pleural effusion. The most recent chest x-ray shows a recurrent moderate-sized right-sided pleural effusion. History of right-sided pleural effusion postthoracentesis, exudative, pleural fluid cytology is negative. Episodic hypotension with symptoms of presyncope/syncope Chronic persistent cough End-stage renal disease, previously maintained on peritoneal dialysis, currie sitioned to hemodialysis, on a Saturday, , Saturday schedule. The patient underwent hemodialysis on 10/19/2023 with a total of 1.5 L of ultrafiltration, another session of hemodialysis in progress this morning Episodic hypotension, maintained on metoprolol hydralazine and midodrine Elevated troponins, rule out an non-ST elevation [place]. Coronary artery disease with recent history of PCI/stenting of the OM1 on 09/03/2023. History of hyperlipidemia. History of hypertension. History of multiple myeloma. Anemia of chronic disease. Chronic thrombocytopenia. History of BPH. History of GERD without esophagitis. Plan Keep oxygen 2 L/min nasal cannula Completing dialysis today Monitor blood pressure Hold metoprolol and hydralazine Continue midodrine for blood pressure control transfuse a unit of packed RBC Will plan for another diagnostic/therapeutic thoracentesis of right lung.
[2023-10-22] MEDS: CALCIUM CARBONATE 500 MG CHEWABLE PO SCH (12:56)
--- NOTE | 2023-10-22 13:16 | P.PN ---
Subjective Progress Note Date: 10/22/23 CHIEF COMPLAINT: Syncope HISTORY OF PRESENT ILLNESS: Patient is currently getting hemodialysis this vinny soto. Admitted to the hospital with orthostatic hypotension. He is anemic with a hemoglobin of 6.6. He will be transfused with 1 unit of blood. Surgical service following in regards to his constipation. Patient did have multiple liquidy stools. There is no signs of any active bleeding. No blood in the stools no melanotic stools. Patient denies any abdominal pain. Denies any nausea or vomiting. Pulmonary service planning for thoracentesis of right lung. PHYSICAL EXAM: VITAL SIGNS: Reviewed. GENERAL: no acute distress. Pale ABDOMEN: Soft. Nondistended. Nontender. NEUROLOGIC: Alert and oriented. Cranial nerves II through XII grossly intact. ASSESSMENT: 1. Constipation 2. Syncope with orthostatic hypotension 3. Anemia. No active signs of bleeding PLAN: -Continue lactulose for constipation -Continue renal diet -Agree with blood transfusion -Continue to monitor for any signs or symptoms of bleeding -Continue to monitor hemoglobin Physician Client Relationship Executive note has been reviewed by physician. Signing provider agrees with the documented findings, assessment, and plan of care. I have personally seen and examined the patient, reviewed the SOFTWARE REQUIREMENTS ENGINEER /PAs history, exam and MDM and agree with the assessment and plan as written. Based on total visit time, I have performed more than 50% of the visit. As above: Patient has had multiple loose stools. Denies abdominal pain. Still feels some rectal fullness. A rectal exam performed. Patient has a bolus of solids stool mixed with liquid. I was able to break this apart manually. Will have the patient sit on the commode after his 1 unit of blood transfusion. Recheck tomorrow. Objective - Vital Signs Vital signs: Vital Signs Temp 97.7 F 10/22/23 08:05 Pulse 71 10/22/23 11:39 Resp 16 10/22/23 11:39 BP 112/62 10/22/23 11:39 Pulse Ox 100 10/22/23 11:39 FiO2 Intake & Output 10/21/23 10/22/23 10/22/23 18:59 06:59 18:59 Intake Total 778 240 Balance 778 240 Weight 86.5 kg 88.5 kg Intake: Oral 778 240 Other: Voiding Method Urinal Urinal Urinal # Voids 0 # Bowel Movements 1 1 - Labs CBC & Chem 7: 10/22/23 05:41 10/22/23 05:41 Labs: Abnormal Lab Results - Last 24 Hours (Table) 10/21/23 10/21/23 10/22/23 Range/Units 16:24 20:23 05:41 WBC 2.9 L (3.8-10.6) k/uL RBC 1.84 L (4.30-5.90) m/uL Hgb 6.6 L* (13.0-17.5) gm/dL Hct 20.2 L (39.0-53.0) % MCV 110.0 H (80.0-100.0) fL MCH 36.1 H (25.0-35.0) pg RDW 18.8 H (11.5-15.5) % Plt Count 92 L (150-450) k/uL Lymphocytes # 0.3 L (1.0-4.8) k/uL Macrocytosis Marked A Sodium (137-145) mmol/L Potassium (3.5-5.1) mmol/L Chloride (98-107) mmol/L BUN (9-20) mg/dL Creatinine (0.66-1.25) mg/dL POC Glucose (mg/dL) 119 H 120 H (70-110) mg/dL AST (17-59) U/L Total Protein (6.3-8.2) g/dL Albumin (3.5-5.0) g/dL 10/22/23 Range/Units 05:41 WBC (3.8-10.6) k/uL RBC (4.30-5.90) m/uL Hgb (13.0-17.5) gm/dL Hct (39.0-53.0) % MCV (80.0-100.0) fL MCH (25.0-35.0) pg RDW (11.5-15.5) % Plt Count (150-450) k/uL Lymphocytes # (1.0-4.8) k/uL Macrocytosis Sodium 130 L (137-145) mmol/L Potassium 3.2 L (3.5-5.1) mmol/L Chloride 97 L (98-107) mmol/L BUN 39 H (9-20) mg/dL Creatinine 7.04 H* (0.66-1.25) mg/dL POC Glucose (mg/dL) (70-110) mg/dL AST 104 H (17-59) U/L Total Protein 3.9 L (6.3-8.2) g/dL Albumin 2.3 L (3.5-5.0) g/dL
[2023-10-22] MEDS: POTASSIUM CHLORIDE ER 20 MEQ TAB.ER PO STA (13:33)
--- NOTE | 2023-10-22 15:16 | P.PCN ---
Date of Procedure: 10/22/23 Preoperative Diagnosis: Pleural effusion, right Postoperative Diagnosis: Pleural effusion, right Procedure(s) Performed: Thoracentesis, right Anesthesia: local Surgeon: Mitra Mann Estimated Blood Loss (ml): 3,080 Pathology: other Condition: stable Disposition: floor Operative Findings: A time out was performed and the chest x-ray was reviewed, the appropriate side was confirmed and marked. My hands were washed immediately prior to the procedure. I wore a surgical cap, mask with protective eyewear, sterile gown and sterile gloves throughout the procedure. The patient was prepped and draped in a sterile manner using chlorhexidine scrub after the appropriate level was p ercussed and confirmed by ultrasound. 1% lidocaine was used to anesthesize the skin, subcutaneous tissue, superior aspect of the rib periosteum and parietal pleura. A finder needle was then introduced over the superior aspect of the rib to locate the pleural fluid; 2colored fluid was aspirated at a depth of approximately 2 cm. A 10-blade scalpel was used to adelaida the skin at the insertion site. The Vzet-h-[id number] needle was then introduced through the skin incision into the pleural space using negative aspiration pressure and the red colometric indicator to confirm appropriate positioning of the needle. The thoracentesis catheter was then threaded without difficulty. 1300 ml of turbid colored fluid was removed without difficulty. The catheter was then removed. No immediate complications were noted during the procedure. A post-procedure chest x-ray is pending at the time of this note. The fluid will follow-up be sent for studies. Estimated blood loss is 0cc
[2023-10-22] MEDS: DARBEPOETIN ALFA 40 MCG/0.4 ML SYRINGE SQ STA (17:36)
--- NOTE | 2023-10-22 18:03 | XR ---
EXAM: XR chest 1V portable CLINICAL INDICATION:Male, 77 years old with history of post thoracentesis; [facility] COMPARISON: 10/19/2023 TECHNIQUE: Chest single view. FINDINGS: Lines/tubes/devices: Stable left chest dialysis catheter with tip over the right atrium. Cardiomediastinum: Stable. Heart is mildly enlarged. Mildly tortuous aorta. Vasculature: No increased pulmonary vasculature. Lungs/pleura: Interval decreased right pleural effusion and adjacent infiltrate/atelectasis. No visible pneumothora x. Left lung is stable. Bones/soft tissues: Bony thorax appears grossly intact with degenerative changes of the spine and shoulders noted. Region al soft tissues appear unremarkable. IMPRESSION: Decreased right pleural effusion, status post thoracentesis. No visible pneumothorax.
[2023-10-22] MEDS: DARBEPOETIN ALFA 100MCG/0.5ML SYRINGE SQ SCH (20:38)
[2023-10-22] MEDS: guaiFENesin-Coden 100-10MG/5ML 10 ML CUP PO PRN (21:19)
[2023-10-23 04:47] LABS: Glucose, BF Source Pleural Fluid; Glucose, Body Fluid 108 mg/dL; LDH, Body Fluid Source Pleural Fluid; T. Protein, Body Fluid Source Pleural Fluid; Total Protein, Body Fluid 2960 mg/dL
[2023-10-23 05:01] LABS: Appearance,BF Cloudy (Clear)
[2023-10-23 08:27] LABS: ALT <6 U/L (4-49); AST 85 U/L (17-59); African American GFR (CKD) 15 (>60 ml/min/1.73 sqM); Albumin 2.3 g/dL (3.5-5.0); Alkaline Phosphatase 81 U/L (38-126); Anion Gap 2 mmol/L; Blood Urea Nitrogen 30 mg/dL (9-20); Calcium 7.8 mg/dL (8.4-10.2); Carbon Dioxide 31 mmol/L (22-30); Chloride 98 mmol/L (98-107); Glucose 96 mg/dL (74-99); Non-African American GFR(CKD) 13 (>60 ml/min/1.73 sqM); Potassium 3.3 mmol/L (3.5-5.1); Sodium 131 mmol/L (137-145); Total Protein 4.1 g/dL (6.3-8.2)
[2023-10-23 09:19] LABS: Anisocytosis Moderate; Basophils % (A) 0 %; Eosinophils # (A) 0.1 k/uL (0-0.7); Eosinophils % (A) 2 %; HCT 23.6 % (39.0-53.0); HGB 7.8 gm/dL (13.0-17.5); Lymphocytes # (A) 0.3 k/uL (1.0-4.8); Lymphocytes % (A) 9 %; MCHC 33.3 g/dL (31.0-37.0); MCV 105.1 fL (80.0-100.0); Macrocytosis Marked; Mean Platelet Volume 9.5; Monocytes # (A) 0.5 k/uL (0-1.0); Monocytes % (A) 15 %; Neutrophils # (A) 2.2 k/uL (1.3-7.7); Neutrophils % (A) 69 %; RBC 2.24 m/uL (4.30-5.90); RDW 20.9 % (11.5-15.5); WBC 3.1 k/uL (3.8-10.6)
[2023-10-23] MEDS ORDERED: ZINC OXIDE PASTE (Z-GUARD) 1 APPLIC TOPICAL PRN (09:19)
[2023-10-23 09:21] LABS: Platelet Count 85 k/uL (150-450)
--- NOTE | 2023-10-23 10:43 | P.PN ---
Subjective Progress Note Date: 10/23/23 Dean Earl, is a 77 year old male who presented to [facility] emergency room with a chief complaint of generalized weakness and episode of syncope He was evaluated in the emergency room vital examination on presentation revealed pulse 82 respiration 18 blood pressure 97/60 pulse ox 96% on 4 L nasal cannula Laboratory data reveals a white blood count of 5.3 hemoglobin 8.2 platelet count 109 BUN 42 creatinine 4.48 troponin level was elevated at 0.084 [place] [id number] Testing in the emergency room revealed chest x-ray revealed cardiomegaly with moderate to large right pleural effusion, EKG revealed normal sinus rhythm normal EKG Patient was admitted to medical floor for further evaluation and treatment Past medical history is significant for end-stage renal disease on hemodialysis, patient was maintained on peritoneal dialysis up till recently, history of hypertension, history of hyperlipidemia, history of coronary artery disease with previous history of angioplasty and stent placement, history of right pleural effusion with recent thoracentesis, history of multiple myeloma On 10/20/2023 patient was seen and examined on the medical floor he is alert and oriented x 3 in no apparent distress there is no fever or chills no headache or dizziness no chest pain no shortness of breath no cough no nausea or vomiting no abdominal pain no diarrhea no blood in the stools no burning with urination no frequency or urgency and no hematuria, patient is complaining of severe constip ation and asking for enemas, otherwise he denies any complaints at this time. Cardiology consult reviewed, restart dual antiplatelet therapy with aspirin and Plavix, and hold metoprolol at this time, will continue to follow closely. On 10/21/2023 patient was seen and examined on the medical floor, he is alert and oriented x 3 in no apparent distress, he is complaining of generalized fatigue and weakness, complaining of shortness of breath with any activity , and complaining of constipation, otherwise he denies any complaints there is no fever or chills no headache or dizziness, no chest pain no palpitation no cough no nausea or vomiting no abdominal pain no diarrhea no blood in the stools no burning with urination no frequency or urgency and no hematuria. He is maintained on hemodialysis. Vital exam reveals a temperature of 97.2 pulse 76 respiration 18 blood pressure 107/54 pulse ox 98% on 2 L nasal cannula . his white blood count today is 3.9 hemoglobin 7.4 platelet count 102 sodium 130 potassium 3.7 chloride 97 BUN 39 creatinine 5.42 On 10/22/2023 patient is alert and oriented 3 currently getting hemodialysis. Patient reports he had bowel movement yesterday. Patient feels improved. According to pulmonary services plans for thoracentesis today. Current vital signs of 97.7, heart rate 83, respiratory rate 16, blood pressure 114/62 with a pulse ox of 98% on 2 L On 10/22/2021 for patient's alert and oriented 3. Patient reports having loose bowel movements. Status post thoracentesis. Vital signs temp 97.8, heart rate 88, respiratory rate 20, blood pressure 143/70 with pulse ox of 95% on room air. Patient denies chest pain or shortness of breath. Patient denies nausea vomiting or diarrhea. Patient denies any urinary burning or frequency Objective - Vital Signs Vital signs: Vital Signs Temp 97.8 F 10/23/23 08:00 Pulse 88 10/23/23 08:00 Resp 20 10/23/23 08:00 BP 143/70 10/23/23 08:00 Pulse Ox 94 L 10/23/23 08:01 FiO2 Intake & Output 10/22/23 10/23/23 10/23/23 18:59 06:59 18:59 Intake Total 1770 Output Total 2500 Balance -730 Weight 84.5 kg Intake: Oral 960 Blood Product 310 Rc As-1 Unit 310 [id number] Hemodialysis 500 Output: Hemodialysis 2500 Other: Voiding Method Urinal Urinal Urinal # Voids 0 # Bowel Movements 1 1 - Exam In general patient is alert and oriented x 3 in no distress HEENT head normocephalic and atraumatic Neck is supple no JVD no goiter no lymphadenopathy no carotid bruit Chest examination is clear to auscultation no crackles no wheezing Cardiac exam reveals regular heart sounds S1 and S2 no gallops no murmurs Abdomen is soft nontender no organomegaly with normal bowel sounds Extremity exam reveals no edema no cyanosis or clubbing Neurological examination reveals no gross focal deficits - Labs CBC & Chem 7: 10/23/23 07:27 10/23/23 07:27 Labs: Abnormal Lab Results - Last 24 Hours (Table) 10/22/23 10/22/23 10/23/23 Range/Units 11:57 15:13 07:27 WBC 3.1 L (3.8-10.6) k/uL RBC 2.24 L (4.30-5.90) m/uL Hgb 7.8 L (13.0-17.5) gm/dL Hct 23.6 L (39.0-53.0) % MCV 105.1 H (80.0-100.0) fL RDW 20.9 H (11.5-15.5) % Plt Count 85 L (150-450) k/uL Lymphocytes # 0.3 L (1.0-4.8) k/uL Macrocytosis Marked A Sodium (137-145) mmol/L Potassium (3.5-5.1) mmol/L Carbon Dioxide (22-30) mmol/L BUN (9-20) mg/dL Creatinine (0.66-1.25) mg/dL Calcium (8.4-10.2) mg/dL AST (17-59) U/L Total Protein (6.3-8.2) g/dL Albumin (3.5-5.0) g/dL Fluid Appearance Cloudy A (Clear) Crossmatch See Detail 10/23/23 Range/Units 07:27 WBC (3.8-10.6) k/uL RBC (4.30-5.90) m/uL Hgb (13.0-17.5) gm/dL Hct (39.0-53.0) % MCV (80.0-100.0) fL RDW (11.5-15.5) % Plt Count (150-450) k/uL Lymphocytes # (1.0-4.8) k/uL Macrocytosis Sodium 131 L (137-145) mmol/L Potassium 3.3 L (3.5-5.1) mmol/L Carbon Dioxide 31 H (22-30) mmol/L BUN 30 H (9-20) mg/dL Creatinine 4.22 H (0.66-1.25) mg/dL Calcium 7.8 L (8.4-10.2) mg/dL AST 85 H (17-59) U/L Total Protein 4.1 L (6.3-8.2) g/dL Albumin 2.3 L (3.5-5.0) g/dL Fluid Appearance (Clear) Crossmatch Microbiology - Last 24 Hours (Table) 10/22/23 15:13 Gram Stain - Preliminary Pleural Fluid Assessment and Plan Plan: Syncope, with orthostatic hypotension Elevated troponin level right pleural effusion, with recent history of thoracentesis Orthostatic hypotension End-stage renal disease on hemodialysis Anemia of chronic kidney disease. Chronic systolic CHF Coronary disease with cardiac stenting. Underlying history of multiple myeloma At this time patient was seen and examined in the emergency room Home medications reviewed and reordered Cardiology and nephrology consultation requested in the emergency room Will add pulmonary consultation for possible thoracentesis Will follow closely during this admission
--- NOTE | 2023-10-23 11:32 | P.PN ---
Subjective Progress Note Date: 10/23/23 CHIEF COMPLAINT: Syncope HISTORY OF PRESENT ILLNESS: Patient had a more solid bowel movement last night a nd a liquidy stool this morning. Denies any abdominal pain. Denies any nausea or vomiting. Mild tachycardia during the night. He is status post thoracentesis yesterday. Did receive a unit of blood for hemoglobin 6.6 now up to 7.8. Afebrile. WBC 3.1 Hgb 7.8 platelets 85 potassium 3.3 PHYSICAL EXAM: VITAL SIGNS: Reviewed. GENERAL: no acute distress ABDOMEN: Soft. Nondistended. Nontender. ASSESSMENT: 1. Constipation 2. Syncope with orthostatic hypotension 3. Anemia. No active signs of bleeding. Status post 1 unit of blood and Aranesp PLAN: -Continue lactulose for constipation -Continue renal diet Physician Compressed Yeast Supervisor note has been reviewed by physician. Signing provider agrees with the documented findings, assessment, and plan of care. I have personally seen and examined the patient, reviewed the STAFF VETERINARIAN /PAs history, exam and MDM and agree with the assessment and plan as written. Based on total visit time, I have performed more than 50% of the visit. As above: Patient had some harder stools yesterday after our partial disimpaction. Feels better today. Continue stool softeners. Continue diet as tolerated. Will sign off. Please reconsult if needed. Objective - Vital Signs Vital signs: Vital Signs Temp 97.8 F 10/23/23 08:00 Pulse 88 10/23/23 08:00 Resp 20 10/23/23 08:00 BP 143/70 10/23/23 08:00 Pulse Ox 94 L 10/23/23 08:01 FiO2 Intake & Output 10/22/23 10/23/23 10/23/23 18:59 06:59 18:59 Intake Total 1770 Output Total 2500 Balance -730 Weight 84.5 kg Intake: Oral 960 Blood Product 310 Rc As-1 Unit 310 [id number] Hemodialysis 500 Output: Hemodialysis 2500 Other: Voiding Method Urinal Urinal Urinal # Voids 0 # Bowel Movements 1 1 - Labs CBC & Chem 7: 10/23/23 07:27 10/23/23 07:27 Labs: Abnormal Lab Results - Last 24 Hours (Table) 10/22/23 10/22/23 10/23/23 Range/Units 11:57 15:13 07:27 WBC 3.1 L (3.8-10.6) k/uL RBC 2.24 L (4.30-5.90) m/uL Hgb 7.8 L (13.0-17.5) gm/dL Hct 23.6 L (39.0-53.0) % MCV 105.1 H (80.0-100.0) fL RDW 20.9 H (11.5-15.5) % Plt Count 85 L (150-450) k/uL Lymphocytes # 0.3 L (1.0-4.8) k/uL Macrocytosis Marked A Sodium (137-145) mmol/L Potassium (3.5-5.1) mmol/L Carbon Dioxide (22-30) mmol/L BUN (9-20) mg/dL Creatinine (0.66-1.25) mg/dL Calcium (8.4-10.2) mg/dL AST (17-59) U/L Total Protein (6.3-8.2) g/dL Albumin (3.5-5.0) g/dL Fluid Appearance Cloudy A (Clear) Crossmatch See Detail 10/23/23 Range/Units 07:27 WBC (3.8-10.6) k/uL RBC (4.30-5.90) m/uL Hgb (13.0-17.5) gm/dL Hct (39.0-53.0) % MCV (80.0-100.0) fL RDW (11.5-15.5) % Plt Count (150-450) k/uL Lymphocytes # (1.0-4.8) k/uL Macrocytosis Sodium 131 L (137-145) mmol/L Potassium 3.3 L (3.5-5.1) mmol/L Carbon Dioxide 31 H (22-30) mmol/L BUN 30 H (9-20) mg/dL Creatinine 4.22 H (0.66-1.25) mg/dL Calcium 7.8 L (8.4-10.2) mg/dL AST 85 H (17-59) U/L Total Protein 4.1 L (6.3-8.2) g/dL Albumin 2.3 L (3.5-5.0) g/dL Fluid Appearance (Clear) Crossmatch Microbiology - Last 24 Hours (Table) 10/22/23 15:13 Gram Stain - Preliminary Pleural Fluid
--- NOTE | 2023-10-23 12:35 | P.PN ---
Subjective patient is seen for follow-up for end-stage renal disease. status post thoracentesis yesterday with 1.3 L hemoglobin at 7.8 g/dL. No active bleeding noted. status post 1 unit packed RBCs yesterday No significant shortness of breath. Objective - Vital Signs Vital signs: Vital Signs Temp 97.8 F 10/23/23 08:00 Pulse 88 10/23/23 08:00 Resp 20 10/23/23 08:00 BP 143/70 10/23/23 08:00 Pulse Ox 94 L 10/23/23 08:01 FiO2 Intake & Output 10/22/23 10/23/23 10/23/23 18:59 06:59 18:59 Intake Total 1770 Output Total 2500 Balance -730 Weight 84.5 kg Intake: Oral 960 Blood Product 310 Rc As-1 Unit 310 [id number] Hemodialysis 500 Output: Hemodialysis 2500 Other: Voiding Method Urinal Urinal Urinal # Voids 0 # Bowel Movements 1 1 - Exam patient is awake, comfortable, no acute distress. Examination of the heart S1 and S2 Examination of the lungs decreased breath sounds at the bases particularly on the right side. Abdomen is soft nontender Examination of lower extremity shows edema 1+ bilaterally COAL LOADER exam grossly intact - Labs CBC & Chem 7: 10/23/23 07:27 10/23/23 07:27 Labs: Abnormal Lab Results - Last 24 Hours (Table) 10/22/23 10/22/23 10/23/23 Range/Units 11:57 15:13 07:27 WBC 3.1 L (3.8-10.6) k/uL RBC 2.24 L (4.30-5.90) m/uL Hgb 7.8 L (13.0-17.5) gm/dL Hct 23.6 L (39.0-53.0) % MCV 105.1 H (80.0-100.0) fL RDW 20.9 H (11.5-15.5) % Plt Count 85 L (150-450) k/uL Lymphocytes # 0.3 L (1.0-4.8) k/uL Macrocytosis Marked A Sodium (137-145) mmol/L Potassium (3.5-5.1) mmol/L Carbon Dioxide (22-30) mmol/L BUN (9-20) mg/dL Creatinine (0.66-1.25) mg/dL Calcium (8.4-10.2) mg/dL AST (17-59) U/L Total Protein (6.3-8.2) g/dL Albumin (3.5-5.0) g/dL Fluid Appearance Cloudy A (Clear) Crossmatch See Detail 10/23/23 Range/Units 07:27 WBC (3.8-10.6) k/uL RBC (4.30-5.90) m/uL Hgb (13.0-17.5) gm/dL Hct (39.0-53.0) % MCV (80.0-100.0) fL RDW (11.5-15.5) % Plt Count (150-450) k/uL Lymphocytes # (1.0-4.8) k/uL Macrocytosis Sodium 131 L (137-145) mmol/L Potassium 3.3 L (3.5-5.1) mmol/L Carbon Dioxide 31 H (22-30) mmol/L BUN 30 H (9-20) mg/dL Creatinine 4.22 H (0.66-1.25) mg/dL Calcium 7.8 L (8.4-10.2) mg/dL AST 85 H (17-59) U/L Total Protein 4.1 L (6.3-8.2) g/dL Albumin 2.3 L (3.5-5.0) g/dL Fluid Appearance (Clear) Crossmatch Microbiology - Last 24 Hours (Table) 10/22/23 15:13 Gram Stain - Preliminary Pleural Fluid Assessment and Plan Assessment: 1. End-stage renal disease on hemodialysis on a Saturday schedule. 2. Recurrent Right pleural effusion status post previous thoracentesis on during last hospitalization. 3. Syncope secondary to hypotension 4. Coronary artery disease with history of coronary stent 5. Chronic systolic CHF with EF of 45-50% 6. Anemia of chronic disease with significant drop in hemoglobin status post packed RBCs transfusion. Dose of Aranesp has been increased. No active bleeding noted. Plan: hemodialysis in a.m. continue with midodrine. Replace potassium A
[2023-10-23] MEDS: POTASSIUM CHLORIDE ER 20 MEQ TAB.ER PO STA (12:49)
--- NOTE | 2023-10-23 14:26 | P.PN ---
Subjective Progress Note Date: 10/23/23 I was asked to evaluate this patient regarding a recurrent right-sided pleural effusion. The patient is known to have coronary artery disease with previous stenting of the lower OM, CHF with an ejection fraction of 45% along with end- stage renal disease and currently is undergoing hemodialysis 3 times a week TTS. The patient also has multiple myeloma with end-stage renal disease. He is currently off Revlimid. The patient was in the hospital during his last hospitalization, the patient underwent thoracentesis of the right lung. The fluid was exudative and the fluid cytology was essentially negative for malignancy. The patient improved and he was discharged home to be readmitted with episodes of low blood pressure and syncope/presyncope. No chest pain. No angina. No palpitation. Occasional cough with no significant sputum production. The patient is maintained on metoprolol on outpatient basis a dose of 25 mg p.o. twice a day. He is also on midodrine for episodic hypotension at a dose of 10 mg p.o. 3 times daily. He is also on hydralazine 25 mg twice daily. His blood work shows a WBC count 3.9, he was 7.4 and platelet count of 102. BUN is 39 with a creatinine of 5.4 and sodium is at 130. Troponin levels were 0.080.1 and 0.1 respectively x 3. The patient is currently on 2 L of oxygen by nasal cannula with a pulse ox of 98%. Chest x-ray revealed a moderate-sized right-sided pleural effusion along with cardiomegaly. Left lung essentially clear. The patient is not having any significant respiratory distress. I was consulted to evaluate this patient for thoracentesis. The patient has no significant shortness of breath at rest. He is status post ultrafiltration of 1.5 L that was done on 10/19/2023. He is undergoing dialysis tomorrow. His blood pressure is stable for now. 10/22/2023, the patient is being seen for a follow-up. The patient is currently undergoing hemodialysis this morning. He is calm and comfortable and the goal of his ultrafiltration is around 2.5 L. His blood pressure is maintained and the most recent BP is 112/62. He is on 2 L of oxygen by nasal cannula with a pulse ox of 99%. He denies having any other specific complaints. No episodes of syncope over the past 24 hours. He is known to have multiple myeloma. Hemoglobin is down to 6.6 and the patient will be given a unit of packed RBC. The white cell count is at 2.9 with a platelet count of 9020 patient has a component of pancytopenia. Sodium is at 130, potassium 3.2, BUN 39 with a creatinine of 7.09. Stool for C. difficile has been negative. LFTs are within normal limits. No other significant events overnight. Remains on aspirin. Remains on Plavix. Remains on Lovenox 30 mg subcu for DVT prophylaxis. Remains on midodrine 10 mg p.o. 3 times daily as needed and 5 mg p.o. 3 times daily scheduled. No other significant events overnight. The patient is being seen by nephrology. While receiving unit of packed RBC and IMS was also added. 10/23/2023, the patient is being seen for a follow-up. Doing well. Underwent a thoracentesis yesterday and the procedure was done without any complication. The follow-up chest x-ray showed adequate patient of the right lung with decrease in the right-sided pleural effusion and there is no evidence of any pneumothorax. The patient is currently on room air oxygen with a pulse ox of 94%. The white cell count of 3.0 with a hemoglobin of 7.8 and a platelet count of 85. BUN 30 with a creatinine of 4.2 and a sodium levels of 131. The pleural fluid seems to be exudate based on the protein criteria. LDH is also elevated at 166. The fluid was sent over again for cytology. Otherwise, no significant respiratory complaints for now. Is scheduled for tomorrow. Objective - Vital Signs Vital signs: Vital Signs Temp 97.8 F 10/23/23 08:00 Pulse 88 10/23/23 08:00 Resp 20 10/23/23 08:00 BP 143/70 10/23/23 08:00 Pulse Ox 94 L 10/23/23 08:01 FiO2 Intake & Output 10/22/23 10/23/23 10/23/23 18:59 06:59 18:59 Intake Total 1770 Output Total 2500 Balance -730 Weight 84.5 kg Intake: Oral 960 Blood Product 310 Rc As-1 Unit 310 [id number] Hemodialysis 500 Output: Hemodialysis 2500 Other: Voiding Method Urinal Urinal Urinal # Voids 0 # Bowel Movements 1 1 - Exam No acute distress, oriented 3. Currently on room air oxygen by nasal cannula with pulse ox of 98% HEENT examination is grossly unremarkable. Mucous membranes are moist. No oral lesions. Neck supple. Full range of motion. No adenopathy thyromegaly or neck vein distention. Cardiovascular examination reveals regular rhythm rate. S1-S2 normal. No S3 or S4. No discernible murmur noted. Heart sounds distant. Lungs reveal diminished breath sound the right lung base along with dullness to percussion. Minimal dullness on percussion. Left lung is clear. No crackles. No wheezes. Abdomen soft bowel sounds are heard. No masses or tenderness. Extremities are intact. No cyanosis clubbing or edema. Skin is without rash or lesion. Neurologic examination is brief but nonfocal. - Labs CBC & Chem 7: 10/23/23 07:27 10/23/23 07:27 Labs: Abnormal Lab Results - Last 24 Hours (Table) 10/22/23 10/22/23 10/23/23 Range/Units 11:57 15:13 07:27 WBC 3.1 L (3.8-10.6) k/uL RBC 2.24 L (4.30-5.90) m/uL Hgb 7.8 L (13.0-17.5) gm/dL Hct 23.6 L (39.0-53.0) % MCV 105.1 H (80.0-100.0) fL RDW 20.9 H (11.5-15.5) % Plt Count 85 L (150-450) k/uL Lymphocytes # 0.3 L (1.0-4.8) k/uL Macrocytosis Marked A Sodium (137-145) mmol/L Potassium (3.5-5.1) mmol/L Carbon Dioxide (22-30) mmol/L BUN (9-20) mg/dL Creatinine (0.66-1.25) mg/dL Calcium (8.4-10.2) mg/dL AST (17-59) U/L Total Protein (6.3-8.2) g/dL Albumin (3.5-5.0) g/dL Fluid Appearance Cloudy A (Clear) Crossmatch See Detail 10/23/23 Range/Units 07:27 WBC (3.8-10.6) k/uL RBC (4.30-5.90) m/uL Hgb (13.0-17.5) gm/dL Hct (39.0-53.0) % MCV (80.0-100.0) fL RDW (11.5-15.5) % Plt Count (150-450) k/uL Lymphocytes # (1.0-4.8) k/uL Macrocytosis Sodium 131 L (137-145) mmol/L Potassium 3.3 L (3.5-5.1) mmol/L Carbon Dioxide 31 H (22-30) mmol/L BUN 30 H (9-20) mg/dL Creatinine 4.22 H (0.66-1.25) mg/dL Calcium 7.8 L (8.4-10.2) mg/dL AST 85 H (17-59) U/L Total Protein 4.1 L (6.3-8.2) g/dL Albumin 2.3 L (3.5-5.0) g/dL Fluid Appearance (Clear) Crossmatch Microbiology - Last 24 Hours (Table) 10/22/23 15:13 Gram Stain - Preliminary Pleural Fluid Assessment and Plan Plan: Acute on chronic shortness of breath, which is felt to be multifactorial. The pleural effusion is probably contributing to his shortness of breath. In addition, the patient has multiple comorbidities including chronic anemia, end- stage renal disease, episodes of hypotension and coronary artery disease and multiple myeloma and is quite debilitated and having generalized debility and weakness. As such, I feel that his shortness of breath is multifactorial. Pleurocentesis to the right lung was done yesterday and total amount of fluid removal is approximately 1.2 L. Fluid is an exudate. No complication. Chest x-ray shows decrease in the right-sided pleural effusion and the patient is c urrently on room air oxygen. History of right-sided pleural effusion postthoracentesis, exudative, pleural fluid cytology is negative. The patient is status post thoracentesis x 2 and the last procedure was done on 10/22/2023. Episodic hypotension with symptoms of presyncope/syncope Chronic persistent cough End-stage renal disease, previously maintained on peritoneal dialysis, transitioned to hemodialysis, on a Saturday, , Saturday schedule. The patient underwent hemodialysis on 10/19/2023 with a total of 1.5 L of ultrafiltration, another session of hemodialysis in progress this morning Episodic hypotension, maintained on metoprolol hydralazine and midodrine Elevated troponins, rule out an non-ST elevation [place]. Coronary artery disease with recent history of PCI/stenting of the OM1 on 09/03/2023. History of hyperlipidemia. History of hypertension. History of multiple myeloma. Anemia of chronic disease. Chronic thrombocytopenia. History of BPH. History of GERD without esophagitis. Acute on chronic anemia the patient got transfused with a unit of packed RBC. Plan Patient is currently on room air oxygen Dialysis per nephrology Monitor blood pressure Hold metoprolol and hydralazine Continue midodrine for blood pressure control Will continue to follow
--- NOTE | 2023-10-23 15:12 | CDI ---
Documentation Clarification Form Date: 10/23/2023 From: Paige Martin Phone: [phone] Admit Date: 10/21/2023 11:24:00 AM Patient Name: Dean Earl Visit Number: [id number] Discharge Date: ATTENTION: The Clinical Documentation Specialists (CDI) and [facility] Coding Staff appreciate your assistance in clarifying documentation. Please respond to the clarification below the line at the bottom and electronically sign. The CDI & [facility] Coding staff will review the response and follow-up if needed. Please note: Queries are made part of the Legal Health Record. If you have any questions, please contact the author of this message via ITS. Dr. Fred Lawrence The Registered Dietitian assessment on 10/22 indicates this patient meets criteria for acute severe malnutrition. Based on this information and the findings below, is there an additional diagnosis that is clinically appropriate for this patient? History/Risk Factors: 77 year old male with a history of cancer, HTN, ESRD on HD, multiple myeloma who presents after slip and fall with weakness later in the day after dialysis Clinical Indicators: 10/22 Weight 84.5kg Height 5ft 8in BMI 28.3 10/22 RD Assessment, Nutrition Diagnosis: "Malnutrition severe, acute related to <50% of estimated needs>5 days involuntary weight loss >5% of UBW in 1month" Treatment: RD assessment, Ensure Compact TID, liberalize diet Is there an additional diagnosis that is clinically appropriate for this patient? [ xxxxx ] Severe Protein-Calorie Malnutrition [ ] No additional diagnosis/Not clinically significant [ ] Other condition, please specify [ ] Unable to Determine In responding to this query, please exercise your independent professional judgment. The [facility] Coding Staff and Clinical Documentation Specialists appreciate your assistance in clarifying documentation, maintaining compliance with coding guidelines, accurately documenting patients condition and capturing severity of illness. The fact that a question is asked does not imply that any particular answer is desired or expected. Communication forms are a method of clarifying documentation and are made part of the Legal Health Record. Thank you in advance for your clarification. Last Reviewed November 2022 Reference: Using the ASPEN Guidelines, Undernutrition (Malnutrition) is characterized by at least two of the following six findings. The severity can be determined based on the criteria listed below. Malnutrition Characteristics for Moderate and Severe Malnutrition Type of Malnutrition Acute Illness or Injury Chronic Illness Degree of Malnutrition Non-severe (moderate) Malnutrition Severe Malnutrition Non-severe (moderate) Malnutrition Severe Malnutrition Energy Intake <75% for >7 days = 50% for = 5 days <75% for = 1 month =75% for = 1 month Weight Loss 1-2% in one week, 5% in 1 month, 7.5% in 3 months 2% in one week, >5% in 1 month, >7.5% in 3 months 5% in one month, 7.5% in 3 months, 10% in 6 months, 20% in 1 year >5% in one month, >7.5% in 3 months, >10% in 6 months, >20% in 1 year Body Fat Wasting Mild Moderate Mild Severe Muscle Wasting Mild Moderate Mild Severe Presence of Edema Mild Moderate to Severe Mild Severe Shore Man Strength Not applicable Measurably Reduced Not applicable Measurably Reduced Source: Tamiko VelascoV, Charlotte P, Juan G, et al. Consensus statement: Academy of Nutrition and Dietetics and [place] Society for Parenteral and Enteral Nutrition: characteristics recommended for the identification and documentation of adult malnutrition (undernutrition).JPEN J Parenter Enteral Nutr. 2012;36(3):275-283. MTDD
[2023-10-24 10:02] LABS: ALT 6 U/L (4-49); AST 49 U/L (17-59); African American GFR (CKD) 9 (>60 ml/min/1.73 sqM); Albumin 2.4 g/dL (3.5-5.0); Alkaline Phosphatase 78 U/L (38-126); Anion Gap 3 mmol/L; Blood Urea Nitrogen 37 mg/dL (9-20); Calcium 8.2 mg/dL (8.4-10.2); Carbon Dioxide 30 mmol/L (22-30); Chloride 97 mmol/L (98-107); Glucose 157 mg/dL (74-99); Non-African American GFR(CKD) 8 (>60 ml/min/1.73 sqM); Potassium 3.8 mmol/L (3.5-5.1); Sodium 130 mmol/L (137-145); Total Bilirubin 0.6 mg/dL (0.2-1.3); Total Protein 4.1 g/dL (6.3-8.2)
[2023-10-24 10:05] LABS: Anisocytosis Moderate; Basophils % (A) 0 %; Eosinophils # (A) 0.1 k/uL (0-0.7); Eosinophils % (A) 4 %; HCT 23.7 % (39.0-53.0); HGB 7.7 gm/dL (13.0-17.5); Hypochromasia Slight; Lymphocytes # (A) 0.2 k/uL (1.0-4.8); Lymphocytes % (A) 5 %; MCH 34.9 pg (25.0-35.0); MCHC 32.5 g/dL (31.0-37.0); MCV 107.2 fL (80.0-100.0); Macrocytosis Marked; Mean Platelet Volume 9.3; Monocytes # (A) 0.3 k/uL (0-1.0); Monocytes % (A) 9 %; Neutrophils # (A) 3.2 k/uL (1.3-7.7); Neutrophils % (A) 79 %; RBC 2.21 m/uL (4.30-5.90); RDW 20.7 % (11.5-15.5)
[2023-10-24 10:11] LABS: Platelet Count 93 k/uL (150-450)
--- NOTE | 2023-10-24 12:14 | P.PN ---
Subjective Progress Note Date: 10/24/23 I was asked to evaluate this patient regarding a recurrent right-sided pleural effusion. The patient is known to have coronary artery disease with previous stenting of the lower OM, CHF with an ejection fraction of 45% along with end- stage renal disease and currently is undergoing hemodialysis 3 times a week TTS. The patient also has multiple myeloma with end-stage renal disease. He is currently off Revlimid. The patient was in the hospital during his last hospitalization, the patient underwent thoracentesis of the right lung. The fluid was exudative and the fluid cytology was essentially negative for malignancy. The patient improved and he was discharged home to be readmitted with episodes of low blood pressure and syncope/presyncope. No chest pain. No angina. No palpitation. Occasional cough with no significant sputum production. The patient is maintained on metoprolol on outpatient basis a dose of 25 mg p.o. twice a day. He is also on midodrine for episodic hypotension at a dose of 10 mg p.o. 3 times daily. He is also on hydralazine 25 mg twice daily. His blood work shows a WBC count 3.9, he was 7.4 and platelet count of 102. BUN is 39 with a creatinine of 5.4 and sodium is at 130. Troponin levels were 0.080.1 and 0.1 respectively x 3. The patient is currently on 2 L of oxygen by nasal cannula with a pulse ox of 98%. Chest x-ray revealed a moderate-sized right-sided pleural effusion along with cardiomegaly. Left lung essentially clear. The patient is not having any significant respiratory distress. I was consulted to evaluate this patient for thoracentesis. The patient has no significant shortness of breath at rest. He is status post ultrafiltration of 1.5 L that was done on 10/19/2023. He is undergoing dialysis tomorrow. His blood pressure is stable for now. 10/22/2023, the patient is being seen for a follow-up. The patient is currently undergoing hemodialysis this morning. He is calm and comfortable and the goal of his ultrafiltration is around 2.5 L. His blood pressure is maintained and the most recent BP is 112/62. He is on 2 L of oxygen by nasal cannula with a pulse ox of 99%. He denies having any other specific complaints. No episodes of syncope over the past 24 hours. He is known to have multiple myeloma. Hemoglobin is down to 6.6 and the patient will be given a unit of packed RBC. The white cell count is at 2.9 with a platelet count of 9020 patient has a component of pancytopenia. Sodium is at 130, potassium 3.2, BUN 39 with a creatinine of 7.09. Stool for C. difficile has been negative. LFTs are within normal limits. No other significant events overnight. Remains on aspirin. Remains on Plavix. Remains on Lovenox 30 mg subcu for DVT prophylaxis. Remains on midodrine 10 mg p.o. 3 times daily as needed and 5 mg p.o. 3 times daily scheduled. No other significant events overnight. The patient is being seen by nephrology. While receiving unit of packed RBC and IMS was also added. 10/23/2023, the patient is being seen for a follow-up. Doing well. Underwent a thoracentesis yesterday and the procedure was done without any complication. The follow-up chest x-ray showed adequate patient of the right lung with decrease in the right-sided pleural effusion and there is no evidence of any pneumothorax. The patient is currently on room air oxygen with a pulse ox of 94%. The white cell count of 3.0 with a hemoglobin of 7.8 and a platelet count of 85. BUN 30 with a creatinine of 4.2 and a sodium levels of 131. The pleural fluid seems to be exudate based on the protein criteria. LDH is also elevated at 166. The fluid was sent over again for cytology. Otherwise, no significant respiratory complaints for now. Is scheduled for tomorrow. 10/24/2023, seen the patient for a follow-up. Doing well. No specific complaints. No respiratory difficulties. No cough sputum production chest tightness or wheezing. He is having liquidy bowel movements related to the lactulose that the patient has been receiving. Otherwise, no syncope, no chest pain, no hemodynamic instability. Blood pressure remains soft and the most recent BP is 94/59. He is afebrile. No other significant events otherwise for now. The pleural fluid was checked and the fluid protein was 2.9 g making it an exudate. LDH is at 166. Pleural fluid cytology still pending. Will foresee that has been negative. Objective - Vital Signs Vital signs: Vital Signs Temp 97.0 F L 10/24/23 04:00 Pulse 79 10/24/23 04:00 Resp 18 10/24/23 04:00 BP 114/66 10/24/23 04:00 Pulse Ox 95 10/24/23 04:00 FiO2 Intake & Output 10/23/23 10/24/23 10/24/23 18:59 06:59 18:59 Intake Total 1060 120 Balance 1060 120 Weight 84.5 kg 82.5 kg Intake: Oral 1060 120 Other: Voiding Method Urinal Diaper # Voids 1 # Bowel Movements 2 0 - Exam No acute distress, oriented 3. Currently on room air oxygen by nasal cannula with pulse ox of 98% HEENT examination is grossly unremarkable. Mucous membranes are moist. No oral lesions. Neck supple. Full range of motion. No adenopathy thyromegaly or neck vein distention. Cardiovascular examination reveals regular rhythm rate. S1-S2 normal. No S3 or S4. No discernible murmur noted. Heart sounds distant. Lungs reveal diminished breath sound the right lung base along with dullness to percussion. Minimal dullness on percussion. Left lung is clear. No crackles. No wheezes. Abdomen soft bowel sounds are heard. No masses or tenderness. Extremities are intact. No cyanosis clubbing or edema. Skin is without rash or lesion. Neurologic examination is brief but nonfocal. - Labs CBC & Chem 7: 10/24/23 09:22 10/24/23 09:22 Labs: Abnormal Lab Results - Last 24 Hours (Table) 10/24/23 10/24/23 Range/Units 09:22 09:22 RBC 2.21 L (4.30-5.90) m/uL Hgb 7.7 L (13.0-17.5) gm/dL Hct 23.7 L (39.0-53.0) % MCV 107.2 H (80.0-100.0) fL RDW 20.7 H (11.5-15.5) % Plt Count 93 L (150-450) k/uL Lymphocytes # 0.2 L (1.0-4.8) k/uL Macrocytosis Marked A Sodium 130 L (137-145) mmol/L Chloride 97 L (98-107) mmol/L BUN 37 H (9-20) mg/dL Creatinine 6.17 H (0.66-1.25) mg/dL Glucose 157 H (74-99) mg/dL Calcium 8.2 L (8.4-10.2) mg/dL Total Protein 4.1 L (6.3-8.2) g/dL Albumin 2.4 L (3.5-5.0) g/dL Microbiology - Last 24 Hours (Table) 10/22/23 15:13 Gram Stain - Preliminary Pleural Fluid Body Fluid Culture - Preliminary Assessment and Plan Plan: Acute on chronic shortness of breath, which is felt to be multifactorial. No significant shortness of breath and the patient has undergone another right- sided thoracentesis. The pleural effusion is probably contributing to his shortness of breath. In addition, the patient has multiple comorbidities including chronic anemia, end-stage renal disease, episodes of hypotension and coronary artery disease and multiple myeloma and is quite debilitated and having generalized debility and weakness. As such, I feel that his shortness of breath is multifactorial. Pleurocentesis to the right lung was done yesterday and total amount of fluid removal is approximately 1.2 L. Fluid is an exudate. No complication. Chest x-ray shows decrease in the right-sided pleural effusion and the patient is currently on room air oxygen. No significant shortness of breath at this point History of right-sided pleural effusion postthoracentesis, exudative, pleural fluid cytology is negative. The patient is status post thoracentesis x 2 and the last procedure was done on 10/22/2023. Fluid is an exudate. Awaiting pleural fluid cytology. Episodic hypotension with symptoms of presyncope/syncope Chronic persistent cough End-stage renal disease, previously maintained on peritoneal dialysis, transitioned to hemodialysis, on a Saturday, , Saturday schedule. The patient underwent hemodialysis on 10/19/2023 with a total of 1.5 L of ultrafiltration, another session of hemodialysis in progress this morning Episodic hypotension, maintained on metoprolol hydralazine and midodrine Elevated troponins, rule out an non-ST elevation [place]. Coronary artery disease with recent history of PCI/stenting of the OM1 on 09/02. History of hyperlipidemia. History of hypertension. History of multiple myeloma. Anemia of chronic disease. Chronic thrombocytopenia. History of BPH. History of GERD without esophagitis. Acute on chronic anemia the patient got transfused with a unit of packed RBC. Plan Patient is currently on 2 L of oxygen by nasal cannula with a pulse ox of 98%, the patient can be transitioned to room air oxygen. Dialysis per nephrology Monitor blood pressure Hold metoprolol and hydralazine Stool for significant been negative and recommend stopping the lactulose Continue midodrine for blood pressure control Will continue to follow [employer]
--- NOTE | 2023-10-24 13:17 | P.PN ---
Subjective patient is seen for follow-up for end-stage renal disease. status post right thoracentesis on 10/22/2023 with 1.3 L Hemoglobin at 7.7 g/dL. No active bleeding noted. status post 1 unit packed RBCs on 10/22/2023 No significant shortness of breath. scheduled for hemodialysis today. is concerned about frequent loose stools with lactulose. Objective - Vital Signs Vital signs: Vital Signs Temp 98.1 F 10/24/23 10:00 Pulse 94 10/24/23 10:00 Resp 16 10/24/23 10:00 BP 94/59 10/24/23 10:00 Pulse Ox 98 10/24/23 10:00 FiO2 Intake & Output 10/23/23 10/24/23 10/24/23 18:59 06:59 18:59 Intake Total 1060 120 Balance 1060 120 Weight 84.5 kg 82.5 kg Intake: Oral 1060 120 Other: Voiding Method Urinal Diaper Diaper # Voids 1 # Bowel Movements 2 0 1 - Exam patient is awake, comfortable, no acute distress. Examination of the heart S1 and S2 Examination of the lungs decreased breath sounds at the bases particularly on the right side. Abdomen is soft nontender Examination of lower extremity shows edema 1+ bilaterally HANDBOOK WRITER exam grossly intact - Labs CBC & Chem 7: 10/24/23 09:22 10/24/23 09:22 Labs: Abnormal Lab Results - Last 24 Hours (Table) 10/24/23 10/24/23 Range/Units 09:22 09:22 RBC 2.21 L (4.30-5.90) m/uL Hgb 7.7 L (13.0-17.5) gm/dL Hct 23.7 L (39.0-53.0) % MCV 107.2 H (80.0-100.0) fL RDW 20.7 H (11.5-15.5) % Plt Count 93 L (150-450) k/uL Lymphocytes # 0.2 L (1.0-4.8) k/uL Macrocytosis Marked A Sodium 130 L (137-145) mmol/L Chloride 97 L (98-107) mmol/L BUN 37 H (9-20) mg/dL Creatinine 6.17 H (0.66-1.25) mg/dL Glucose 157 H (74-99) mg/dL Calcium 8.2 L (8.4-10.2) mg/dL Total Protein 4.1 L (6.3-8.2) g/dL Albumin 2.4 L (3.5-5.0) g/dL Microbiology - Last 24 Hours (Table) 10/22/23 15:13 Gram Stain - Preliminary Pleural Fluid Body Fluid Culture - Preliminary Assessment and Plan Assessment: 1. End-stage renal disease on hemodialysis on a Saturday schedule. 2. Recurrent Right pleural effusion status post previous thoracentesis on 09/27/2023 during last hospitalization. Status post repeat right thoracentesis on 10/22/2023 with 1.3 L of fluid removed 3. Syncope secondary to hypotension 4. Coronary artery disease with history of coronary stent 5. Chronic systolic CHF with EF of 45-50% 6. Anemia of chronic disease with significant drop in hemoglobin status post packed RBCs transfusion. Dose of Aranesp has been increased. No active bleeding noted. Plan: hemodialysis today. continue with midodrine. Replace potassium A
--- NOTE | 2023-10-24 15:38 | P.CONS ---
History of Present Illness - Reason for Consult Consult date: 10/24/23 myeloma Requesting physician: Fred Lawrence - Chief Complaint syncopy, hypoxia - History of Present Illness Mr Earl is a pleasant male pt of Dr. Whitt on treatment for MM. 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 Urine 04/15/15 revealed a possible monoclonal protein. SPEP was negative. Additional labs revealed increase kappa light chains around 40 mg/dl with k/l ratio markedly elevated at 38.8. BM bx 06/15/15 revealed 10-15 % involvement of the marrow, FISH revealed overall favorable cytogenetics, with CCND1/IGH rearrangement, and loss of Chr 13, bone survey did not show any definite lesions. Observation was recommended at that time. He had a kidney biopsy 04/30/16 revealing kappa chain deposition. Based on this, active treatment was recommended. He was started on Velcade and decadron. He was started on HD and transitioned to PD in mid 10/27. He was changed to Revlimid and dex in early 12/27 due to progressive neuropathy. He was referred for a BMT consult at the [facility], and seen in late 01/27 but, decided against BMT. He was changed to maintenance dose Revlimid 10/28. He has had to hold occasionally over the years because of acute infection or low counts. Most recently he is on 2.5mg twice a week with stable myeloma labs. Last seen in office 09/08. Patient admitted about 4 weeks ago after a fall at home. His could not get him up off the floor. She is also noted that he is getting progressively more confused. CT of the head was negative. He has been in the process of converting from peritoneal dialysis to hemodialysis. His last dialysis was Saturday. She noted that the patient is swelling up. He also has a new cough. Denies fevers, nausea or vomiting. He had a right pleural effusion, 09/26 1.5 L thoracentesis was done, negative for any malignant cells. Today is day 6 of current hospitalization, admitted for syncopy, hypoxia. Seen by Surgery, being treated for constipation. Pulmonary has performed a 1300cc rt thoracentesis for pl effusion. He had peritoneal dialysis cath removed 10/18/23. Nephrology is following, pt is on hemodialysis. He is on aranesp, has received a unit of PRBCs. 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 History of Any Multi-Drug Resistant Organisms: None Reported Past Surgical History: Heart Catheterization, Heart Catheterization With Stent Additional Past Surgical History / Comment(s): lithotripsy/laser, fatty tumor removed from right chest, colonoscopy, PERMA cath rt upper chest- removed 2016, hemodialysis cath august-October 27, bilateral cataracts removed, CAPD cath x2 with removal Past Anesthesia/Blood Transfusion Reactions: No Reported Reaction Additional Past Anesthesia/Blood Transfusion Reaction / Comm: previous blood transfusion without any reactions Date of Last Stent Placement:: 09/03/23 Past Psychological History: No Psychological Hx Reported Additional Psychological History / Comment(s): . Smoking Status: Never smoker Past Alcohol Use History: Occasional Past Drug Use History: None Reported - Past Family History Sister(s) Family Medical History: Cancer Father Family Medical History: Cancer, Deep Vein Thrombosis (DVT) Mother Family Medical History: Dementia Additional Family Medical History / Comment(s): from alzheimer's Brother(s) Family Medical History: Diabetes Mellitus Medications and Allergies Home Medications Medication Instructions Recorded Confirmed Type Omeprazole [PriLOSEC] 20 mg PO DAILY 08/18/16 10/19/23 History valACYclovir HCL [Valtrex] 500 mg PO DAILY 08/18/16 10/19/23 History Finasteride [Proscar] 5 mg PO HS 03/30/18 10/19/23 History Metoprolol Tartrate [Lopressor] 25 mg PO BID 03/30/18 10/19/23 History Pregabalin [Lyrica] 75 mg PO BID 03/30/18 10/19/23 History Pro-Renal + Vit D (Unknown) 1 tab PO DAILY 03/30/18 10/19/23 History Ergocalciferol (Vitamin D2) 1,250 mcg PO SA 05/21/23 10/19/23 History [Drisdol (50,000 Iu)] Magnesium Oxide [Mag-Ox] 400 mg PO DAILY 05/21/23 10/19/23 History Micera 50mcg/0.3ml 50 mcg INJ Q14D 05/21/23 10/19/23 History Sodium Bicarbonate Tab 650 mg PO BID 05/21/23 10/19/23 History Tamsulosin [Flomax] 0.4 mg PO HS 05/21/23 10/19/23 History Cyanocobalamin (Vitamin B-12) 1,000 mcg PO DAILY 06/18/23 10/19/23 History [Vitamin B-12] Aspirin [Adult Low Dose Aspirin EC] 81 mg PO DAILY 06/24/23 10/19/23 History Clopidogrel [Plavix] 75 mg PO DAILY #90 tab 09/04/23 10/19/23 Rx Nitroglycerin Sl Tabs [Nitrostat] 0.4 mg SUBLINGUAL Q5M PRN #25 tab 09/04/23 10/19/23 Rx Calcium Carbonate [Tums] 1,000 mg PO W/BRKFST 09/24/23 10/19/23 History Calcium Carbonate [Tums] 3,000 mg PO QID 09/24/23 10/19/23 History Rosuvastatin [Crestor] 20 mg PO HS 09/24/23 10/19/23 History guaiFENesin-Coden 100-10MG/5ML 10 ml PO Q6HR PRN #120 ml 10/06/23 10/19/23 Rx [Robitussin AC] Loperamide [Imodium] 2 mg PO DAILY PRN 10/16/23 10/19/23 History Midodrine [ProAmatine] 10 mg PO TID PRN 10/16/23 10/19/23 History hydrALAZINE HCL 25 mg PO BID PRN 10/16/23 10/19/23 History Lenalidomide [Revlimid] 2.5 mg PO DIRECTED 10/17/23 10/19/23 History HYDROcodone/APAP 5-325MG [[place] 1 tab PO Q6HR PRN 3 Days #6 tab 10/18/23 10/19/23 Rx 5-325] Allergies Allergy/AdvReac Type Severity Reaction Status Date / Time No Known Allergies Allergy Verified 10/19/23 09:39 Physical Exam Vitals: Vital Signs Temp Pulse Resp BP Pulse Ox 10/24/23 04:00 97.0 F L 79 18 114/66 95 10/24/23 00:00 96.4 F L 69 18 113/67 95 10/23/23 20:00 98.4 F 73 18 110/64 96 10/23/23 16:00 97.9 F 75 18 121/70 100 10/23/23 12:00 98 F 89 18 93/55 94 L Intake and Output 10/23/23 10/24/23 10/24/23 22:59 06:59 14:59 Intake Total 340 120 Balance 340 120 Intake: Oral 340 120 Other: Voiding Method Diaper Diaper # Voids 1 # Bowel Movements 1 0 Weight 82.5 kg - Constitutional General appearance: average body habitus, cooperative, no acute distress - EENT Eyes: anicteric sclerae, EOMI ENT: hearing grossly normal - Respiratory resp even and unlabored at rest - Cardiovascular Rhythm: regular leg Peripheral Edema: bilateral: Trace - Gastrointestinal General gastrointestinal: no absent bowel sounds, no decreased bowel sounds, no distended, no hepatomegaly, no hyperactive bowel sounds, normal bowel sounds, no organomegaly, no rigid, no scaphoid, soft, no splenomegaly, no tenderness, no umbilical hernia, no ventral hernia - Neurologic Neurologic: CNII-XII intact - Musculoskeletal Musculoskeletal: generalized weakness - Psychiatric Psychiatric: A&O x's 3, appropriate affect, intact judgment & insight Results CBC & Chem 7: 10/24/23 09:22 10/24/23 09:22 Labs: Abnormal Lab Results - Last 24 Hours (Table) 10/23/23 Range/Units 07:27 WBC 3.1 L (3.8-10.6) k/uL RBC 2.24 L (4.30-5.90) m/uL Hgb 7.8 L (13.0-17.5) gm/dL Hct 23.6 L (39.0-53.0) % MCV 105.1 H (80.0-100.0) fL RDW 20.9 H (11.5-15.5) % Plt Count 85 L (150-450) k/uL Lymphocytes # 0.3 L (1.0-4.8) k/uL Macrocytosis Marked A Microbiology - Last 24 Hours (Table) 10/22/23 15:13 Gram Stain - Preliminary Pleural Fluid Body Fluid Culture - Preliminary Assessment and Plan (1) Multiple myeloma Current Visit: No Status: Chronic Priority: Medium Code(s): C90.00 - MULTIPLE MYELOMA NOT HAVING ACHIEVED REMISSION SNOMED Code(s): 221861136 Plan: Multiple myeloma -Patient is currently on Revlimid twice a week. He has good disease control for quite some time -It is okay to hold Revlimid while patient is in rehabilitation. He can resume once he is discharged from rehab and back home -Follow-up with Dr. Whitt is in the discharge plan. Defer acute medical complaints to Internal Medicine, Pulmonary and Nephrology.
[2023-10-24] MEDS: POTASSIUM CHLORIDE ER 20 MEQ TAB.ER PO STA (16:30)
--- NOTE | 2023-10-24 16:45 | P.PN ---
Subjective Progress Note Date: 10/24/23 Dean Earl, is a 77 year old male who presented to [facility] emergency room with a chief complaint of generalized weakness and episode of syncope He was evaluated in the emergency room vital examination on presentation revealed pulse 82 respiration 18 blood pressure 97/60 pulse ox 96% on 4 L nasal cannula Laboratory data reveals a white blood count of 5.3 hemoglobin 8.2 platelet count 109 BUN 42 creatinine 4.48 troponin level was elevated at 0.084 [place] [address] Testing in the emergency room revealed chest x-ray revealed cardiomegaly with moderate to large right pleural effusion, EKG revealed normal sinus rhythm normal EKG Patient was admitted to medical floor for further evaluation and treatment Past medical history is significant for end-stage renal disease on hemodialysis, patient was maintained on peritoneal dialysis up till recently, history of hypertension, history of hyperlipidemia, history of coronary artery disease with previous history of angioplasty and stent placement, history of right pleural effusion with recent thoracentesis, history of multiple myeloma On 10/20/2023 patient was seen and examined on the medical floor he is alert and oriented x 3 in no apparent distress there is no fever or chills no headache or dizziness no chest pain no shortness of breath no cough no nausea or vomiting no abdominal pain no diarrhea no blood in the stools no burning with urination no frequency or urgency and no hematuria, patient is complaining of severe constip ation and asking for enemas, otherwise he denies any complaints at this time. Cardiology consult reviewed, restart dual antiplatelet therapy with aspirin and Plavix, and hold metoprolol at this time, will continue to follow closely. On 10/21/2023 patient was seen and examined on the medical floor, he is alert and oriented x 3 in no apparent distress, he is complaining of generalized fatigue and weakness, complaining of shortness of breath with any activity , and complaining of constipation, otherwise he denies any complaints there is no fever or chills no headache or dizziness, no chest pain no palpitation no cough no nausea or vomiting no abdominal pain no diarrhea no blood in the stools no burning with urination no frequency or urgency and no hematuria. He is maintained on hemodialysis. Vital exam reveals a temperature of 97.2 pulse 76 respiration 18 blood pressure 107/54 pulse ox 98% on 2 L nasal cannula . his white blood count today is 3.9 hemoglobin 7.4 platelet count 102 sodium 130 potassium 3.7 chloride 97 BUN 39 creatinine 5.42 On 10/22/2023 patient is alert and oriented 3 currently getting hemodialysis. Patient reports he had bowel movement yesterday. Patient feels improved. According to pulmonary services plans for thoracentesis today. Current vital signs of 97.7, heart rate 83, respiratory rate 16, blood pressure 114/62 with a pulse ox of 98% on 2 L On 10/23/2023 for patient's alert and oriented 3. Patient reports having loose bowel movements. Status post thoracentesis. Vital signs temp 97.8, heart rate 88, respiratory rate 20, blood pressure 143/70 with pulse ox of 95% on room air. Patient denies chest pain or shortness of breath. Patient denies nausea vomiting or diarrhea. Patient denies any urinary burning or frequency On 10/24/2023 patient was seen and examined on the medical floor, he is alert and oriented x 3 in no apparent distress, there is no fever or chills no headache or dizziness no chest pain, no shortness of breath no cough no nausea or vomiting no abdominal pain, he has several liquid bowel movements daily, no blood in the stools no burning with urination no frequency or urgency and no hematuria. At this time will recheck abdomen x-ray, decrease to dose to once daily, PT OT to follow, plan is for rehab at [facility] when stable. Objective - Vital Signs Vital signs: Vital Signs Temp 98.1 F 10/24/23 10:00 Pulse 94 10/24/23 10:00 Resp 16 10/24/23 10:00 BP 94/59 10/24/23 10:00 Pulse Ox 98 10/24/23 10:00 FiO2 Intake & Output 10/23/23 10/24/23 10/24/23 18:59 06:59 18:59 Intake Total 1060 120 Balance 1060 120 Weight 84.5 kg 82.5 kg Intake: Oral 1060 120 Other: Voiding Method Urinal Diaper Diaper # Voids 1 # Bowel Movements 2 0 - Exam In general patient is alert and oriented x 3 in no distress HEENT head normocephalic and atraumatic Neck is supple no JVD no goiter no lymphadenopathy no carotid bruit Chest examination is clear to auscultation no crackles no wheezing Cardiac exam reveals regular heart sounds S1 and S2 no gallops no murmurs Abdomen is soft nontender no organomegaly with normal bowel sounds Extremity exam reveals no edema no cyanosis or clubbing Neurological examination reveals no gross focal deficits - Labs CBC & Chem 7: 10/24/23 09:22 10/24/23 09:22 Labs: Abnormal Lab Results - Last 24 Hours (Table) 10/24/23 10/24/23 Range/Units 09:22 09:22 RBC 2.21 L (4.30-5.90) m/uL Hgb 7.7 L (13.0-17.5) gm/dL Hct 23.7 L (39.0-53.0) % MCV 107.2 H (80.0-100.0) fL RDW 20.7 H (11.5-15.5) % Plt Count 93 L (150-450) k/uL Lymphocytes # 0.2 L (1.0-4.8) k/uL Macrocytosis Marked A Sodium 130 L (137-145) mmol/L Chloride 97 L (98-107) mmol/L BUN 37 H (9-20) mg/dL Creatinine 6.17 H (0.66-1.25) mg/dL Glucose 157 H (74-99) mg/dL Calcium 8.2 L (8.4-10.2) mg/dL Total Protein 4.1 L (6.3-8.2) g/dL Albumin 2.4 L (3.5-5.0) g/dL Microbiology - Last 24 Hours (Table) 10/22/23 15:13 Gram Stain - Preliminary Pleural Fluid Body Fluid Culture - Preliminary Assessment and Plan Plan: Syncope, with orthostatic hypotension Elevated troponin level right pleural effusion, with recent history of thoracentesis Orthostatic hypotension End-stage renal disease on hemodialysis Anemia of chronic kidney disease. Chronic systolic CHF Coronary disease with cardiac stenting. Underlying history of multiple myeloma At this time patient was seen and examined in the emergency room Home medications reviewed and reordered Cardiology and nephrology consultation requested in the emergency room Will add pulmonary consultation for possible thoracentesis Will follow closely during this admission
--- NOTE | 2023-10-24 19:51 | XR ---
EXAMINATION TYPE: XR abdomen 2V DATE OF EXAM: 10/24/2023 CLINICAL HISTORY: Constipation. Indication. TECHNIQUE: 2 upright and 3 supine radiographs were obtained portably. COMPARISON: None. FINDINGS: Visualized lung bases are negative for acute process. Left pleural effusion noted. Scattered gas is seen in non-distended small bowel loops. Gas and fecal material is seen in non-dist ended colon. Colonic stool volume is within normal limits. There are prominent overlying soft tissues which limits the sensitivity of this radiographic examinat ion, but evidence of pneumoperitoneum is not seen. No acute skeletal or soft tissue findings. IMPRESSION: 1. Left pleural effusion noted. 2. No definite acute abdominal process.
[2023-10-25] MEDS: LACTULOSE 20 GM/30 ML CUP PO SCH (08:32)
[2023-10-25 08:38] VITALS: RESP 20
--- NOTE | 2023-10-25 11:20 | P.PN ---
Subjective Progress Note Date: 10/25/23 Dean Earl, is a 77 year old male who presented to [facility] emergency room with a chief complaint of generalized weakness and episode of syncope He was evaluated in the emergency room vital examination on presentation revealed pulse 82 respiration 18 blood pressure 97/60 pulse ox 96% on 4 L nasal cannula Laboratory data reveals a white blood count of 5.3 hemoglobin 8.2 platelet count 109 BUN 42 creatinine 4.48 troponin level was elevated at 0.084 [place] was 17785 Testing in the emergency room revealed chest x-ray revealed cardiomegaly with moderate to large right pleural effusion, EKG revealed normal sinus rhythm normal EKG Patient was admitted to medical floor for further evaluation and treatment Past medical history is significant for end-stage renal disease on hemodialysis, patient was maintained on peritoneal dialysis up till recently, history of hypertension, history of hyperlipidemia, history of coronary artery disease with previous history of angioplasty and stent placement, history of right pleural effusion with recent thoracentesis, history of multiple myeloma On 10/20/2023 patient was seen and examined on the medical floor he is alert and oriented x 3 in no apparent distress there is no fever or chills no headache or dizziness no chest pain no shortness of breath no cough no nausea or vomiting no abdominal pain no diarrhea no blood in the stools no burning with urination no frequency or urgency and no hematuria, patient is complaining of severe constip ation and asking for enemas, otherwise he denies any complaints at this time. Cardiology consult reviewed, restart dual antiplatelet therapy with aspirin and Plavix, and hold metoprolol at this time, will continue to follow closely. On 10/21/2023 patient was seen and examined on the medical floor, he is alert and oriented x 3 in no apparent distress, he is complaining of generalized fatigue and weakness, complaining of shortness of breath with any activity , and complaining of constipation, otherwise he denies any complaints there is no fever or chills no headache or dizziness, no chest pain no palpitation no cough no nausea or vomiting no abdominal pain no diarrhea no blood in the stools no burning with urination no frequency or urgency and no hematuria. He is maintained on hemodialysis. Vital exam reveals a temperature of 97.2 pulse 76 respiration 18 blood pressure 107/54 pulse ox 98% on 2 L nasal cannula . his white blood count today is 3.9 hemoglobin 7.4 platelet count 102 sodium 130 potassium 3.7 chloride 97 BUN 39 creatinine 5.42 On 10/22/2023 patient is alert and oriented 3 currently getting hemodialysis. Patient reports he had bowel movement yesterday. Patient feels improved. According to pulmonary services plans for thoracentesis today. Current vital signs of 97.7, heart rate 83, respiratory rate 16, blood pressure 114/62 with a pulse ox of 98% on 2 L On 10/23/2023 for patient's alert and oriented 3. Patient reports having loose bowel movements. Status post thoracentesis. Vital signs temp 97.8, heart rate 88, respiratory rate 20, blood pressure 143/70 with pulse ox of 95% on room air. Patient denies chest pain or shortness of breath. Patient denies nausea vomiting or diarrhea. Patient denies any urinary burning or frequency On 10/24/2023 patient was seen and examined on the medical floor, he is alert and oriented x 3 in no apparent distress, there is no fever or chills no headache or dizziness no chest pain, no shortness of breath no cough no nausea or vomiting no abdominal pain, he has several liquid bowel movements daily, no blood in the stools no burning with urination no frequency or urgency and no hematuria. At this time will recheck abdomen x-ray, decrease to dose to once daily, PT OT to follow, plan is for rehab [facility] when stable. On 10/25/2023 patient is alert and oriented times 3 repeat abdominal x-ray negative. Discharge planning to [facility]. Awaiting insurance authorization.Current vital signs temp 98.1, heart rate 102, respiratory rate 20, pressure 108/62 with Pulse ox 100% on 2 L Objective - Vital Signs Vital signs: Vital Signs Temp 98.1 F 10/25/23 08:00 Pulse 102 H 10/25/23 08:00 Resp 20 10/25/23 08:00 BP 108/62 10/25/23 08:00 Pulse Ox 100 10/25/23 08:00 FiO2 Intake & Output 10/24/23 10/25/23 10/25/23 18:59 06:59 18:59 Intake Total 720 640 118 Output Total 2400 0 Balance 720 -1760 118 Weight 83 kg Intake: Oral 720 240 118 Hemodialysis 400 Output: Urine 0 Hemodialysis 2400 Other: Voiding Method Diaper Diaper Diaper # Bowel Movements 1 1 - Exam In general patient is alert and oriented x 3 in no distress HEENT head normocephalic and atraumatic Neck is supple no JVD no goiter no lymphadenopathy no carotid bruit Chest examination is clear to auscultation no crackles no wheezing Cardiac exam reveals regular heart sounds S1 and S2 no gallops no murmurs Abdomen is soft nontender no organomegaly with normal bowel sounds Extremity exam reveals no edema no cyanosis or clubbing Neurological examination reveals no gross focal deficits - Labs CBC & Chem 7: 10/24/23 09:22 10/24/23 09:22 Labs: Microbiology - Last 24 Hours (Table) 10/22/23 15:13 Gram Stain - Preliminary Pleural Fluid Body Fluid Culture - Preliminary Assessment and Plan Plan: Syncope, with orthostatic hypotension Elevated troponin level right pleural effusion, with recent history of thoracentesis Orthostatic hypotension End-stage renal disease on hemodialysis Anemia of chronic kidney disease. Chronic systolic CHF Coronary disease with cardiac stenting. Underlying history of multiple myeloma At this time patient was seen and examined in the emergency room Home medications reviewed and reordered Cardiology and nephrology consultation requested in the emergency room Status post thoracentesis Will follow closely during this admission
[2023-10-25 11:56] VITALS: BP 112/57; PULSE 88; TEMP 97.7
[2023-10-25 13:10] VITALS: BMI 27.8
--- NOTE | 2023-10-25 13:25 | P.DS ---
Providers Date of admission: 10/21/23 11:24 Expected date of discharge: 10/25/23 Attending physician: Fred Lawrence Consults: 10/19/23 02:22 Consult Physician Urgent Consulting Provider: Eriberto Salcedo Consult Reason/Comments: esrd on hd Do you want consulting provider notified?: Yes 10/21/23 10:58 Consult Physician Urgent Consulting Provider: Mitra Mann Consult Reason/Comments: mod. to large pleural effusion Do you want consulting provider notified?: Yes 10/23/23 15:02 Consult Physician Routine Consulting Provider: Jc Senior Consult Reason/Comments: multiple myeloma Do you want consulting provider notified?: Yes Primary care physician: Fred [facility] Course: Diagnosis on discharge: Syncope, with orthostatic hypotension Elevated troponin level right pleural effusion, with recent history of thoracentesis Orthostatic hypotension End-stage renal disease on hemodialysis Anemia of chronic kidney disease. Chronic systolic CHF Coronary disease with cardiac stenting. Underlying history of multiple myeloma Hospital course: Dean Earl, is a 77 year old male who presented to [facility] emergency room with a chief complaint of generalized weakness and episode of syncope He was evaluated in the emergency room vital examination on presentation revealed pulse 82 respiration 18 blood pressure 97/60 pulse ox 96% on 4 L nasal cannula Laboratory data reveals a white blood count of 5.3 hemoglobin 8.2 platelet count 109 BUN 42 creatinine 4.48 troponin level was elevated at 0.084 [place] [address] Testing in the emergency room revealed chest x-ray revealed cardiomegaly with moderate to large right pleural effusion, EKG revealed normal sinus rhythm normal EKG Patient was admitted to medical floor for further evaluation and treatment Past medical history is significant for end-stage renal disease on hemodialysis, patient was maintained on peritoneal dialysis up till recently, history of hypertension, history of hyperlipidemia, history of coronary artery disease with previous history of angioplasty and stent placement, history of right pleural effusion with recent thoracentesis, history of multiple myeloma On 10/20/2023 patient was seen and examined on the medical floor he is alert and oriented x 3 in no apparent distress there is no fever or chills no headache or dizziness no chest pain no shortness of breath no cough no nausea or vomiting no abdominal pain no diarrhea no blood in the stools no burning with urination no frequency or urgency and no hematuria, patient is complaining of severe constipation and asking for enemas, otherwise he denies any complaints at this time. Cardiology consult reviewed, restart dual antiplatelet therapy with aspirin and Plavix, and hold metoprolol at this time, will continue to follow closely. On 10/21/2023 patient was seen and examined on the medical floor, he is alert and oriented x 3 in no apparent distress, he is complaining of generalized fatigue and weakness, complaining of shortness of breath with any activity , and complaining of constipation, otherwise he denies any complaints there is no fever or chills no headache or dizziness, no chest pain no palpitation no cough no nausea or vomiting no abdominal pain no diarrhea no blood in the stools no burning with urination no frequency or urgency and no hematuria. He is maintained on hemodialysis. Vital exam reveals a temperature of 97.2 pulse 76 respiration 18 blood pressure 107/54 pulse ox 98% on 2 L nasal cannula . his white blood count today is 3.9 hemoglobin 7.4 platelet count 102 sodium 130 potassium 3.7 chloride 97 BUN 39 creatinine 5.42 On 10/22/2023 patient is alert and oriented 3 currently getting hemodialysis. Patient reports he had bowel movement yesterday. Patient feels improved. According to pulmonary services plans for thoracentesis today. Current vital signs of 97.7, heart rate 83, respiratory rate 16, blood pressure 114/62 with a pulse ox of 98% on 2 L On 10/23/2023 for patient's alert and oriented 3. Patient reports having loose bowel movements. Status post thoracentesis. Vital signs temp 97.8, heart rate 88, respiratory rate 20, blood pressure 143/70 with pulse ox of 95% on room air. Patient denies chest pain or shortness of breath. Patient denies nausea vomiting or diarrhea. Patient denies any urinary burning or frequency On 10/24/2023 patient was seen and examined on the medical floor, he is alert and oriented x 3 in no apparent distress, there is no fever or chills no headache or dizziness no chest pain, no shortness of breath no cough no nausea or vomiting no abdominal pain, he has several liquid bowel movements daily, no blood in the stools no burning with urination no frequency or urgency and no hematuria. At this time will recheck abdomen x-ray, decrease to dose to once daily, PT OT to follow, plan is for rehab at [facility] when stable. On 10/25/2023 patient is alert and oriented times 3 repeat abdominal x-ray negative. Discharge planning to [facility]. Awaiting insurance authorization.Current vital signs temp 98.1, heart rate 102, respiratory rate 20, pressure 108/62 with Pulse ox 100% on 2 L Patient Condition at Discharge: Stable Plan - Discharge Summary Discharge Rx Participant: No New Discharge Prescriptions: New Darbepoetin Ruiz [Aranesp] 80 mcg SQ Q7D each Docusate [Colace] 100 mg PO BID cap Midodrine [ProAmatine] 5 mg PO AC-TID tab Continue valACYclovir HCL [Valtrex] 500 mg PO DAILY Omeprazole [PriLOSEC] 20 mg PO DAILY Pro-Renal + Vit D (Unknown) 1 tab PO DAILY Pregabalin [Lyrica] 75 mg PO BID Finasteride [Proscar] 5 mg PO HS Micera 50mcg/0.3ml 50 mcg INJ Q14D Magnesium Oxide [Mag-Ox] 400 mg PO DAILY Tamsulosin [Flomax] 0.4 mg PO HS Cyanocobalamin (Vitamin B-12) [Vitamin B-12] 1,000 mcg PO DAILY Clopidogrel [Plavix] 75 mg PO DAILY #90 tab Calcium Carbonate [Tums] 1,000 mg PO W/BRKFST Calcium Carbonate [Tums] 3,000 mg PO QID hydrALAZINE HCL 25 mg PO BID PRN PRN Reason: if BP is greater then 140/90 Sodium Bicarbonate Tab 650 mg PO BID Ergocalciferol (Vitamin D2) [Drisdol (50,000 Iu)] 1,250 mcg PO SA Aspirin [Adult Low Dose Aspirin EC] 81 mg PO DAILY Nitroglycerin Sl Tabs [Nitrostat] 0.4 mg SUBLINGUAL Q5M PRN #25 tab PRN Reason: Chest Pain Rosuvastatin [Crestor] 20 mg PO HS guaiFENesin-Coden 100-10MG/5ML [Robitussin AC] 10 ml PO Q6HR PRN #120 ml PRN Reason: Cough Midodrine [ProAmatine] 10 mg PO TID PRN PRN Reason: if b/p < 115/60 HYDROcodone/APAP 5-325MG [[place] 5-325] 1 tab PO Q6HR PRN 3 Days #6 tab PRN Reason: Analgesia Discontinued Metoprolol Tartrate [Lopressor] 25 mg PO BID Loperamide [Imodium] 2 mg PO DAILY PRN PRN Reason: if LS >1 day Lenalidomide [Revlimid] 2.5 mg PO DIRECTED Discharge Medication List Omeprazole [PriLOSEC] 20 mg PO DAILY 08/18/16 [History] valACYclovir HCL [Valtrex] 500 mg PO DAILY 08/18/16 [History] Finasteride [Proscar] 5 mg PO HS 03/30/18 [History] Pregabalin [Lyrica] 75 mg PO BID 03/30/18 [History] Pro-Renal + Vit D (Unknown) 1 tab PO DAILY 03/30/18 [History] Ergocalciferol (Vitamin D2) [Drisdol (50,000 Iu)] 1,250 mcg PO SA 05/21/23 [History] Magnesium Oxide [Mag-Ox] 400 mg PO DAILY 05/21/23 [History] Micera 50mcg/0.3ml 50 mcg INJ Q14D 05/21/23 [History] Sodium Bicarbonate Tab 650 mg PO BID 05/21/23 [History] Tamsulosin [Flomax] 0.4 mg PO HS 05/21/23 [History] Cyanocobalamin (Vitamin B-12) [Vitamin B-12] 1,000 mcg PO DAILY 06/18/23 [History] Aspirin [Adult Low Dose Aspirin EC] 81 mg PO DAILY 06/24/23 [History] Clopidogrel [Plavix] 75 mg PO DAILY #90 tab 09/04/23 [Rx] Nitroglycerin Sl Tabs [Nitrostat] 0.4 mg SUBLINGUAL Q5M PRN #25 tab 09/04/23 [Rx] Calcium Carbonate [Tums] 1,000 mg PO W/BRKFST 09/24/23 [History] Calcium Carbonate [Tums] 3,000 mg PO QID 09/24/23 [History] Rosuvastatin [Crestor] 20 mg PO HS 09/24/23 [History] guaiFENesin-Coden 100-10MG/5ML [Robitussin AC] 10 ml PO Q6HR PRN #120 ml 10/06/23 [Rx] Midodrine [ProAmatine] 10 mg PO TID PRN 10/16/23 [History] hydrALAZINE HCL 25 mg PO BID PRN 10/16/23 [History] HYDROcodone/APAP 5-325MG [[place] 5-325] 1 tab PO Q6HR PRN 3 Days #6 tab 10/18/23 [Rx] Darbepoetin Ruiz [Aranesp] 80 mcg SQ Q7D each 10/25/23 [Rx] Docusate [Colace] 100 mg PO BID cap 10/25/23 [Rx] Midodrine [ProAmatine] 5 mg PO AC-TID tab 10/25/23 [Rx] Follow up Appointment(s)/Referral(s): Leeroy Whitt [STAFF PHYSICIAN] - 12/09/23 2:00 pm Fred Lawrence MD [Primary Care Provider] - 1-2 days
--- NOTE | 2023-10-25 15:55 | P.PN ---
Subjective Progress Note Date: 10/25/23 I was asked to evaluate this patient regarding a recurrent right-sided pleural effusion. The patient is known to have coronary artery disease with previous stenting of the lower OM, CHF with an ejection fraction of 45% along with end- stage renal disease and currently is undergoing hemodialysis 3 times a week TTS. The patient also has multiple myeloma with end-stage renal disease. He is currently off Revlimid. The patient was in the hospital during his last hospitalization, the patient underwent thoracentesis of the right lung. The fluid was exudative and the fluid cytology was essentially negative for malignancy. The patient improved and he was discharged home to be readmitted with episodes of low blood pressure and syncope/presyncope. No chest pain. No angina. No palpitation. Occasional cough with no significant sputum production. The patient is maintained on metoprolol on outpatient basis a dose of 25 mg p.o. twice a day. He is also on midodrine for episodic hypotension at a dose of 10 mg p.o. 3 times daily. He is also on hydralazine 25 mg twice daily. His blood work shows a WBC count 3.9, he was 7.4 and platelet count of 102. BUN is 39 with a creatinine of 5.4 and sodium is at 130. Troponin levels were 0.080.1 and 0.1 respectively x 3. The patient is currently on 2 L of oxygen by nasal cannula with a pulse ox of 98%. Chest x-ray revealed a moderate-sized right-sided pleural effusion along with cardiomegaly. Left lung essentially clear. The patient is not having any significant respiratory distress. I was consulted to evaluate this patient for thoracentesis. The patient has no significant shortness of breath at rest. He is status post ultrafiltration of 1.5 L that was done on 10/19/2023. He is undergoing dialysis tomorrow. His blood pressure is stable for now. 10/22/2023, the patient is being seen for a follow-up. The patient is currently undergoing hemodialysis this morning. He is calm and comfortable and the goal of his ultrafiltration is around 2.5 L. His blood pressure is maintained and the most recent BP is 112/62. He is on 2 L of oxygen by nasal cannula with a pulse ox of 99%. He denies having any other specific complaints. No episodes of syncope over the past 24 hours. He is known to have multiple myeloma. Hemoglobin is down to 6.6 and the patient will be given a unit of packed RBC. The white cell count is at 2.9 with a platelet count of 9020 patient has a component of pancytopenia. Sodium is at 130, potassium 3.2, BUN 39 with a creatinine of 7.09. Stool for C. difficile has been negative. LFTs are within normal limits. No other significant events overnight. Remains on aspirin. Remains on Plavix. Remains on Lovenox 30 mg subcu for DVT prophylaxis. Remains on midodrine 10 mg p.o. 3 times daily as needed and 5 mg p.o. 3 times daily scheduled. No other significant events overnight. The patient is being seen by nephrology. While receiving unit of packed RBC and IMS was also added. 10/23/2023, the patient is being seen for a follow-up. Doing well. Underwent a thoracentesis yesterday and the procedure was done without any complication. The follow-up chest x-ray showed adequate patient of the right lung with decrease in the right-sided pleural effusion and there is no evidence of any pneumothorax. The patient is currently on room air oxygen with a pulse ox of 94%. The white cell count of 3.0 with a hemoglobin of 7.8 and a platelet count of 85. BUN 30 with a creatinine of 4.2 and a sodium levels of 131. The pleural fluid seems to be exudate based on the protein criteria. LDH is also elevated at 166. The fluid was sent over again for cytology. Otherwise, no significant respiratory complaints for now. Is scheduled for tomorrow. 10/24/2023, seen the patient for a follow-up. Doing well. No specific complaints. No respiratory difficulties. No cough sputum production chest tightness or wheezing. He is having liquidy bowel movements related to the lactulose that the patient has been receiving. Otherwise, no syncope, no chest pain, no hemodynamic instability. Blood pressure remains soft and the most recent BP is 94/59. He is afebrile. No other significant events otherwise for now. The pleural fluid was checked and the fluid protein was 2.9 g making it an exudate. LDH is at 166. Pleural fluid cytology still pending. Will foresee that has been negative. On 10/25/2023, seen the patient for a follow-up. The patient is awake and alert and communicating. No respiratory difficulties. The patient underwent hemodialysis yesterday. Blood pressure is stable. Hemodynamically stable. White cell count is 4 with a hemoglobin 7.7 and a platelet count of 93. BUN 37 creatinine of 6.1 and a sodium levels of 130. Medications remain essentially unchanged. The patient was taken off the lactulose. The patient remains on a combination of aspirin and Plavix. No other significant events overnight. The patient is currently on 2 L of oxygen by nasal cannula with a pulse ox of 99%. Objective - Vital Signs Vital signs: Vital Signs Temp 98.1 F 10/25/23 08:00 Pulse 102 H 10/25/23 08:00 Resp 20 10/25/23 08:00 BP 108/62 10/25/23 08:00 Pulse Ox 100 10/25/23 08:00 FiO2 Intake & Output 10/24/23 10/25/23 10/25/23 18:59 06:59 18:59 Intake Total 720 640 118 Output Total 2400 0 Balance 720 -1760 118 Weight 83 kg Intake: Oral 720 240 118 Hemodialysis 400 Output: Urine 0 Hemodialysis 2400 Other: Voiding Method Diaper Diaper Diaper # Bowel Movements 1 1 - Exam No acute distress, oriented 3. Currently on room air oxygen by nasal cannula with pulse ox of 98% HEENT examination is grossly unremarkable. Mucous membranes are moist. No oral lesions. Neck supple. Full range of motion. No adenopathy thyromegaly or neck vein distention. Cardiovascular examination reveals regular rhythm rate. S1-S2 normal. No S3 or S4. No discernible murmur noted. Heart sounds distant. Lungs reveal diminished breath sound the right lung base along with dullness to percussion. Minimal dullness on percussion. Left lung is clear. No crackles. No wheezes. Abdomen soft bowel sounds are heard. No masses or tenderness. Extremities are intact. No cyanosis clubbing or edema. Skin is without rash or lesion. Neurologic examination is brief but nonfocal. - Labs CBC & Chem 7: 10/24/23 09:22 10/24/23 09:22 Labs: Microbiology - Last 24 Hours (Table) 10/22/23 15:13 Gram Stain - Preliminary Pleural Fluid Body Fluid Culture - Preliminary Assessment and Plan Plan: Acute on chronic shortness of breath, which is felt to be multifactorial. No significant shortness of breath and the patient has undergone another right- sided thoracentesis. The pleural effusion is probably contributing to his shortness of breath. In addition, the patient has multiple comorbidities including chronic anemia, end-stage renal disease, episodes of hypotension and coronary artery disease and multiple myeloma and is quite debilitated and having generalized debility and weakness. As such, I feel that his shortness of breath is multifactorial. Pleurocentesis to the right lung was done yesterday and total amount of fluid removal is approximately 1.2 L. Fluid is an exudate. No complication. Chest x-ray shows decrease in the right-sided pleural effusion and the patient is currently on 2 L of oxygen by nasal cannula. He could potentially go to room air oxygen. History of right-sided pleural effusion postthoracentesis, exudative, pleural fluid cytology is negative. The patient is status post thoracentesis x 2 and the last procedure was done on 10/22/2023. Fluid is an exudate. Awaiting pleural fluid cytology. Episodic hypotension with symptoms of presyncope/syncope, currently inactive and stable Chronic persistent cough End-stage renal disease, previously maintained on peritoneal dialysis, transitioned to hemodialysis, on a Saturday, , Saturday schedule. The patient underwent hemodialysis on 10/19/2023 with a total of 1.5 L of ultrafilt ration, another session of hemodialysis in progress this morning Episodic hypotension, maintained on metoprolol hydralazine and midodrine Elevated troponins, rule out an non-ST elevation CA. Coronary artery disease with recent history of PCI/stenting of the OM1 on 09/03/2023. History of hyperlipidemia. History of hypertension. History of multiple myeloma. Anemia of chronic disease. Chronic thrombocytopenia. History of BPH. History of GERD without esophagitis. Acute on chronic anemia the patient got transfused with a unit of packed RBC. Plan Patient is currently on 2 L of oxygen by nasal cannula with a pulse ox of 98%, the patient can be transitioned to room air oxygen. Dialysis per nephrology this was completed yesterday without any complications. Monitor blood pressure Blood pressure stable for now. Continue midodrine for blood pressure control Will continue to follow
--- NOTE | 2023-10-25 17:25 | P.PN ---
Subjective patient is seen for follow-up for end-stage renal disease. status post right thoracentesis on 10/22/2023 with 1.3 L Hemoglobin at 7.7 g/dL. No active bleeding noted. status post 1 unit packed RBCs on 10/22/2023 No significant shortness of breath. Tolerated hemodialysis well yesterday with UF of 2.4 L. Lactulose dose has been decreased. Objective - Vital Signs Vital signs: Vital Signs Temp 97.7 F 10/25/23 11:55 Pulse 88 10/25/23 11:55 Resp 20 10/25/23 11:55 BP 112/57 10/25/23 11:55 Pulse Ox 100 10/25/23 11:55 FiO2 Intake & Output 10/24/23 10/25/23 10/25/23 18:59 06:59 18:59 Intake Total 720 640 236 Output Total 2400 0 Balance 720 -1760 236 Weight 83 kg 83 kg Intake: Oral 720 240 236 Hemodialysis 400 Output: Urine 0 Hemodialysis 2400 Other: Voiding Method Diaper Diaper Diaper # Bowel Movements 1 1 1 - Exam patient is awake, comfortable, no acute distress. Examination of the heart S1 and S2 Examination of the lungs decreased breath sounds at the bases particularly on the right side. Abdomen is soft nontender Examination of lower extremity shows edema trace bilaterally [employer] exam grossly intact - Labs CBC & Chem 7: 10/24/23 09:22 10/24/23 09:22 Labs: Microbiology - Last 24 Hours (Table) 10/22/23 15:13 Gram Stain - Preliminary Pleural Fluid Body Fluid Culture - Preliminary Assessment and Plan Assessment: 1. End-stage renal disease on hemodialysis on a Saturday schedule. 2. Recurrent Right pleural effusion status post previous thoracentesis on 09/27/2023 during last hospitalization. Status post repeat right thoracentesis on 10/22/2023 with 1.3 L of fluid removed 3. Syncope secondary to hypotension 4. Coronary artery disease with history of coronary stent 5. Chronic systolic CHF with EF of 45-50% 6. Anemia of chronic disease with significant drop in hemoglobin status post packed RBCs transfusion. Dose of Aranesp has been increased. No active bleeding noted. 7. Constipation, improved. Plan: hemodialysis in a.m. continue with midodrine. Stable for discharge from nephrology standpoint.
[2023-10-29] MEDS ORDERED: DARBEPOETIN ALFA 100MCG/0.5ML SYRINGE SQ SCH (09:00)
== END 2023-10-25 16:12 | DRG 186 ==
LOC: EC 23:06 → 3SCARD 10-19 02:23 → OBSVTOIN 10-21 11:24
PROVIDERS: ADMIT Internal Medicine; ATTEND Internal Medicine
PROC: 5A1D70Z Performance of Urinary Filtration, Intermittent, Less than 6 Hours Per Day (ICD-10-PCS; 2023-10-19)
PROC: 0W993ZX Drainage of Right Pleural Cavity, Percutaneous Approach, Diagnostic (ICD-10-PCS; principal; 2023-10-22)
PROC: 30233N1 Transfusion of Nonautologous Red Blood Cells into Peripheral Vein, Percutaneous Approach (ICD-10-PCS; 2023-10-22)
DX: J90 Pleural effusion, not elsewhere classified (principal); E43 Unspecified severe protein-calorie malnutrition; N18.6 End stage renal disease; J96.01 Acute respiratory failure with hypoxia; D61.818 Other pancytopenia; I13.2 Hypertensive heart and chronic kidney disease with heart failure and with stage 5 chronic kidney disease, or end stage renal disease; I50.22 Chronic systolic (congestive) heart failure; C90.00 Multiple myeloma not having achieved remission; D69.6 Thrombocytopenia, unspecified; D63.1 Anemia in chronic kidney disease; I95.1 Orthostatic hypotension; Z99.2 Dependence on renal dialysis; I25.5 Ischemic cardiomyopathy; E78.5 Hyperlipidemia, unspecified; K59.00 Constipation, unspecified; K21.9 Gastro-esophageal reflux disease without esophagitis; K44.9 Diaphragmatic hernia without obstruction or gangrene; N40.0 Benign prostatic hyperplasia without lower urinary tract symptoms; K57.90 Diverticulosis of intestine, part unspecified, without perforation or abscess without bleeding; I25.10 Atherosclerotic heart disease of native coronary artery without angina pectoris; M19.90 Unspecified osteoarthritis, unspecified site; Z68.27 Body mass index [BMI] 27.0-27.9, adult; Z71.3 Dietary counseling and surveillance; Z95.5 Presence of coronary angioplasty implant and graft; Z79.82 Long term (current) use of aspirin; Z79.02 Long term (current) use of antithrombotics/antiplatelets; Z79.899 Other long term (current) drug therapy
CPT/HCPCS: 36415; 71045; 71046; 74019; 80048; 80053; 82728; 82945; 83540; 83550; 83615; 83880; 84100; 84157; 84484; 85025; 85610; 85730; 86706; 86850; 86900; 86901; 86920; 87070; 87205; 87324; 87340; 88108; 88305; 89050; 90935; 93005; 94760; 96372; 99285

== ENCOUNTER → 2023-12-11 | Outpatient (CLI) | payer MEDICARE ==
--- NOTE | 2023-12-11 15:50 | XR ---
EXAMINATION TYPE: XR chest 2V DATE OF EXAM: 12/11/2023 2:47 PM CLINICAL INDICATION:Male, 78 years old with history of R06.02 SHORTNESS OF BREATH; [facility] COMPARISON: Chest radiographs from 10/22/2023 TECHNIQUE: XR chest 2V Frontal view of the chest. FINDINGS: Lungs/Pleura: No evidence of focal consolidation or pneumothorax. Blunting of the costophrenic angles is present. Pulmonary vascularity: Pulmonary vascular congestion. Heart/mediastinum: Cardiomediastinal silhouette is enlarged and stable. Musculoskeletal: No acute osseous pathology. Left chest central venous catheter tip terminating at the superior cavoatrial junction. IMPRESSION: Cardiomegaly, pulmonary vascular congestion and bilateral pleural effusions. Correlate with BNP for c ongestive heart failure.
== END | disposition home or self-care (01) ==
LOC: RADXRMAIN 14:29
PROVIDERS: ATTEND Internal Medicine
DX: J90 Pleural effusion, not elsewhere classified (principal); I50.9 Heart failure, unspecified
CPT/HCPCS: 71046

== ENCOUNTER → 2023-12-12 | Outpatient (CLI) | payer MEDICARE ==
--- NOTE | 2023-12-12 12:55 | US ---
EXAMINATION TYPE: US chest DATE OF EXAM: 12/12/2023 COMPARISON: XR chest 12/11/23 CLINICAL INDICATION: Male, 78 years old with history of J90 PLEURAL EFFUSION; B/L pleural effusion. H x thoracentesis right side TECHNIQUE: Targeted ultrasound of the posterior lower Bilateral hemithoraces EXAM MEASUREMENTS: Left Pleural Effusion pocket size: 7.1 cm Left skin surface to fluid distance: 2.4 cm Right side NOT marked for possible thoracentesis outside the dept. There is a small, complex fluid co llection. Left side marked for possible thoracentesis outside the dept. Pulmonologists are able to review the images in the patient?s EMR. Report was called to referring clinician by telephone 12:50 PM 12/12/2023. IMPRESSIONS: 1. Small complex right pleural fluid collection. Could BE a sequela of infection or empyema. 2. Small left pleural effusion.
== END | disposition home or self-care (01) ==
LOC: RADUSWWP 09:48
PROVIDERS: ATTEND Internal Medicine Critical Care Medicine
DX: J90 Pleural effusion, not elsewhere classified (principal)
CPT/HCPCS: 76604

== ENCOUNTER → 2023-12-20 | Day surgery (SDC) | payer MEDICARE ==
--- NOTE | 2024-01-15 16:24 | US ---
EXAMINATION TYPE: US discontinued thoracentesis DATE OF EXAM: 01/15/2024 3:19 PM CLINICAL INDICATION:Male, 78 years old with history of Pleural effusion; cough. COMPARISON: 12/12/2023 ATTENDING: Dr. Pizano TECHNIQUE: Initial ultrasound examination of the posterior lower hemithoraces shows only trace to small effusion s. The effusion on the right appears complex with internal septations. As the patient is referred for therapeutic thoracentesis, this is not enough for safe needle placement following marking. FINDINGS: The procedure was therefore discontinued. IMPRESSIONS: Therapeutic thoracentesis discontinued as only trace to small effusions are demonstrated. The effusio n on the right shows some septations/complexity.
== END ==
LOC: RADPROMAIN 11:40
PROVIDERS: ATTEND Internal Medicine Critical Care Medicine
DX: Z53.8 Procedure and treatment not carried out for other reasons (principal); J90 Pleural effusion, not elsewhere classified
CPT/HCPCS: 76604

== ENCOUNTER 2023-12-24 16:19 | Inpatient (IN) | payer MEDICARE ==
[2023-12-25] MEDS ORDERED: MAGNESIUM OXIDE 400 MG TAB ONE (12:55)
[2023-12-25] MEDS ORDERED: PREGABALIN 75 MG CAP ONE ×2 (12:55→20:34)
[2023-12-25] MEDS ORDERED: METOPROLOL TARTRATE 25 MG TAB ONE ×2 (12:56→20:34)
[2023-12-25] MEDS ORDERED: ASPIRIN 81 MG ONE (12:56)
[2023-12-25] MEDS ORDERED: CYANOCOBALAMIN 500 MCG TAB ONE (12:56)
[2023-12-25] MEDS ORDERED: CLOPIDOGREL 75 MG TAB ONE (12:56)
[2023-12-25] MEDS ORDERED: FINASTERIDE 5 MG TAB ONE (20:34)
[2023-12-26] MEDS ORDERED: MAGNESIUM OXIDE 400 MG TAB ONE (15:09)
[2023-12-26] MEDS ORDERED: ASPIRIN 81 MG ONE (15:09)
[2023-12-26] MEDS ORDERED: CLOPIDOGREL 75 MG TAB ONE (15:10)
[2023-12-26] MEDS ORDERED: cefTRIAXone 1 GM VIAL ONE (20:16)
[2023-12-26] MEDS ORDERED: PREGABALIN 75 MG CAP ONE (20:16)
[2023-12-26] MEDS ORDERED: METOPROLOL TARTRATE 25 MG TAB ONE (20:16)
[2023-12-26] MEDS ORDERED: AZITHROMYCIN 500 MG VIAL IVPB ONE (21:00)
[2023-12-26] MEDS ORDERED: SODIUM CHLORIDE 0.9% 50 ML BAG IV ONE (21:00)
[2023-12-26] MEDS ORDERED: SODIUM CHLORIDE 0.9% 250 ML BAG ONE (21:00)
[2023-12-26] MEDS ORDERED: MIDODRINE 5 MG TAB ONE (23:44)
[2023-12-27] MEDS ORDERED: PANTOPRAZOLE 40 MG TABLET PO ONE (05:29)
[2023-12-27] MEDS ORDERED: MAGNESIUM OXIDE 400 MG TAB ONE (08:34)
[2023-12-27] MEDS ORDERED: CLOPIDOGREL 75 MG TAB ONE (08:34)
[2023-12-27] MEDS ORDERED: PREGABALIN 75 MG CAP ONE ×2 (08:34→20:03)
[2023-12-27] MEDS ORDERED: METOPROLOL TARTRATE 25 MG TAB ONE ×2 (08:34→20:03)
[2023-12-27] MEDS ORDERED: ASPIRIN 81 MG ONE (08:34)
[2023-12-27] MEDS ORDERED: DOCUSATE 100 MG CAP ONE (17:04)
[2023-12-27] MEDS ORDERED: cefTRIAXone 1 GM VIAL ONE (20:03)
[2023-12-27] MEDS ORDERED: SODIUM CHLORIDE 0.9% 250 ML BAG ONE (21:00)
[2023-12-27] MEDS ORDERED: AZITHROMYCIN 500 MG VIAL IVPB ONE (21:00)
[2023-12-27] MEDS ORDERED: SODIUM CHLORIDE 0.9% 50 ML BAG IV ONE (21:00)
[2023-12-28] MEDS ORDERED: PANTOPRAZOLE 40 MG TABLET PO ONE (06:15)
[2023-12-28] MEDS ORDERED: METOPROLOL TARTRATE 25 MG TAB ONE ×2 (08:45→23:53)
[2023-12-28] MEDS ORDERED: CLOPIDOGREL 75 MG TAB ONE (08:45)
[2023-12-28] MEDS ORDERED: cefTRIAXone 1 GM VIAL ONE (08:45)
[2023-12-28] MEDS ORDERED: PREGABALIN 75 MG CAP ONE ×2 (08:45→23:53)
[2023-12-28] MEDS ORDERED: MAGNESIUM OXIDE 400 MG TAB ONE (08:45)
[2023-12-28] MEDS ORDERED: ASPIRIN 81 MG ONE (08:45)
[2023-12-28] MEDS ORDERED: SODIUM CHLORIDE 0.9% 50 ML BAG IV ONE (21:00)
[2023-12-28] MEDS ORDERED: FINASTERIDE 5 MG TAB ONE (23:53)
[2023-12-28] MEDS ORDERED: ATORVASTATIN 40 MG TAB ONE (23:53)
[2023-12-29] MEDS ORDERED: PANTOPRAZOLE 40 MG TABLET PO ONE (06:21)
[2023-12-29] MEDS ORDERED: MAGNESIUM OXIDE 400 MG TAB ONE (10:11)
[2023-12-29] MEDS ORDERED: PREGABALIN 75 MG CAP ONE ×2 (10:12→21:03)
[2023-12-29] MEDS ORDERED: ASPIRIN 81 MG ONE (10:12)
[2023-12-29] MEDS ORDERED: CLOPIDOGREL 75 MG TAB ONE (10:12)
[2023-12-29] MEDS ORDERED: METOPROLOL TARTRATE 25 MG TAB ONE ×2 (10:12→21:02)
[2023-12-29] MEDS ORDERED: ZINC OXIDE PASTE (Z-GUARD) 1 APPLIC TOPICAL ONE (15:38)
[2023-12-29] MEDS ORDERED: SODIUM CHLORIDE 0.9% 50 ML BAG IV ONE (21:00)
[2023-12-29] MEDS ORDERED: SODIUM CHLORIDE 0.9% 250 ML BAG ONE (21:00)
[2023-12-29] MEDS ORDERED: AZITHROMYCIN 500 MG VIAL IVPB ONE (21:00)
[2023-12-29] MEDS ORDERED: ATORVASTATIN 40 MG TAB ONE (21:01)
[2023-12-29] MEDS ORDERED: cefTRIAXone 1 GM VIAL ONE (21:03)
[2023-12-29] MEDS ORDERED: FINASTERIDE 5 MG TAB ONE (21:04)
[2023-12-29] MEDS ORDERED: hydrALAZINE HCL 25 MG TAB ONE (21:12)
[2023-12-30] MEDS ORDERED: FUROSEMIDE 10 MG/ML 4 ML VIAL ONE (05:08)
[2023-12-30] MEDS ORDERED: PANTOPRAZOLE 40 MG TABLET PO ONE (06:25)
[2023-12-30] MEDS ORDERED: hydrALAZINE HCL 25 MG TAB ONE (06:26)
[2023-12-30] MEDS ORDERED: ASPIRIN 81 MG ONE (09:05)
[2023-12-30] MEDS ORDERED: CLOPIDOGREL 75 MG TAB ONE (09:05)
[2023-12-30] MEDS ORDERED: MAGNESIUM OXIDE 400 MG TAB ONE (09:06)
[2023-12-30] MEDS ORDERED: METOPROLOL TARTRATE 25 MG TAB ONE ×2 (09:07→19:42)
[2023-12-30] MEDS ORDERED: PREGABALIN 75 MG CAP ONE ×2 (09:07→19:42)
[2023-12-30] MEDS ORDERED: ATORVASTATIN 40 MG TAB ONE (19:41)
[2023-12-30] MEDS ORDERED: FINASTERIDE 5 MG TAB ONE (19:41)
[2023-12-30] MEDS ORDERED: cefTRIAXone 1 GM VIAL ONE (19:43)
[2023-12-30] MEDS ORDERED: AZITHROMYCIN 500 MG VIAL IVPB ONE (21:00)
[2023-12-30] MEDS ORDERED: SODIUM CHLORIDE 0.9% 50 ML BAG IV ONE (21:00)
[2023-12-30] MEDS ORDERED: SODIUM CHLORIDE 0.9% 100 ML BAG IV ONE (21:00)
[2023-12-30] MEDS ORDERED: BENZONATATE 100 MG CAP PO ONE (22:44)
[2023-12-31] MEDS ORDERED: IPRATROPIUM-ALBUTEROL 3 ML NEB ONE (04:55)
[2023-12-31] MEDS ORDERED: hydrALAZINE HCL 25 MG TAB ONE (05:54)
[2023-12-31] MEDS ORDERED: PANTOPRAZOLE 40 MG TABLET PO ONE ×2 (05:54→08:31)
[2023-12-31] MEDS ORDERED: MAGNESIUM OXIDE 400 MG TAB ONE (08:30)
[2023-12-31] MEDS ORDERED: cefTRIAXone 1 GM VIAL ONE ×2 (08:31→20:42)
[2023-12-31] MEDS ORDERED: CLOPIDOGREL 75 MG TAB ONE (08:31)
[2023-12-31] MEDS ORDERED: ASPIRIN 81 MG ONE (08:31)
[2023-12-31] MEDS ORDERED: PREGABALIN 75 MG CAP ONE ×2 (08:31→20:41)
[2023-12-31] MEDS ORDERED: BENZONATATE 100 MG CAP PO ONE ×2 (14:09→20:41)
[2023-12-31] MEDS ORDERED: METOPROLOL TARTRATE 25 MG TAB ONE ×2 (15:27→20:41)
[2023-12-31] MEDS ORDERED: ONDANSETRON 4 MG/2 ML VIAL ONE (18:58)
[2023-12-31] MEDS ORDERED: ATORVASTATIN 40 MG TAB ONE (20:41)
[2023-12-31] MEDS ORDERED: FINASTERIDE 5 MG TAB ONE (20:41)
[2023-12-31] MEDS ORDERED: SODIUM CHLORIDE 0.9% 50 ML BAG IV ONE (21:00)
[2024-01-01] MEDS ORDERED: PANTOPRAZOLE 40 MG TABLET PO ONE (06:16)
[2024-01-01] MEDS ORDERED: MIDODRINE 5 MG TAB ONE ×3 (08:43→20:05)
[2024-01-01] MEDS ORDERED: CLOPIDOGREL 75 MG TAB ONE (11:56)
[2024-01-01] MEDS ORDERED: MAGNESIUM OXIDE 400 MG TAB ONE (11:56)
[2024-01-01] MEDS ORDERED: PREGABALIN 75 MG CAP ONE ×2 (11:56→20:03)
[2024-01-01] MEDS ORDERED: ASPIRIN 81 MG ONE (11:56)
[2024-01-01] MEDS ORDERED: CYANOCOBALAMIN 500 MCG TAB ONE (11:57)
[2024-01-01] MEDS ORDERED: FOLIC ACID 1 MG TAB ONE (11:57)
[2024-01-01] MEDS ORDERED: ATORVASTATIN 40 MG TAB ONE (20:04)
[2024-01-01] MEDS ORDERED: METOPROLOL TARTRATE 25 MG TAB ONE (20:04)
[2024-01-01] MEDS ORDERED: BENZONATATE 100 MG CAP PO ONE (20:04)
[2024-01-01] MEDS ORDERED: cefTRIAXone 1 GM VIAL ONE (20:05)
[2024-01-01] MEDS ORDERED: FINASTERIDE 5 MG TAB ONE (20:05)
[2024-01-01] MEDS ORDERED: SODIUM CHLORIDE 0.9% 250 ML BAG ONE (21:00)
[2024-01-01] MEDS ORDERED: SODIUM CHLORIDE 0.9% 50 ML BAG IV ONE (21:00)
[2024-01-01] MEDS ORDERED: AZITHROMYCIN 500 MG VIAL IVPB ONE (21:00)
[2024-01-02] MEDS ORDERED: PANTOPRAZOLE 40 MG TABLET PO ONE (06:26)
[2024-01-02] MEDS ORDERED: ONDANSETRON 4 MG/2 ML VIAL ONE (06:55)
[2024-01-02] MEDS ORDERED: MIDODRINE 5 MG TAB ONE ×2 (09:56→16:14)
[2024-01-02] MEDS ORDERED: MAGNESIUM OXIDE 400 MG TAB ONE (16:13)
[2024-01-02] MEDS ORDERED: PREGABALIN 75 MG CAP ONE ×2 (16:14→20:31)
[2024-01-02] MEDS ORDERED: ATORVASTATIN 40 MG TAB ONE ×2 (16:14→20:32)
[2024-01-02] MEDS ORDERED: CLOPIDOGREL 75 MG TAB ONE (16:14)
[2024-01-02] MEDS ORDERED: ASPIRIN 81 MG ONE (16:14)
[2024-01-02] MEDS ORDERED: METOPROLOL TARTRATE 25 MG TAB ONE ×2 (16:14→20:31)
[2024-01-02] MEDS ORDERED: CYANOCOBALAMIN 500 MCG TAB ONE (16:15)
[2024-01-02] MEDS ORDERED: cefTRIAXone 1 GM VIAL ONE (20:32)
[2024-01-02] MEDS ORDERED: FINASTERIDE 5 MG TAB ONE (20:32)
[2024-01-02] MEDS ORDERED: SODIUM CHLORIDE 0.9% 250 ML BAG ONE (21:00)
[2024-01-02] MEDS ORDERED: SODIUM CHLORIDE 0.9% 50 ML BAG IV ONE (21:00)
[2024-01-02] MEDS ORDERED: AZITHROMYCIN 500 MG VIAL IVPB ONE (21:00)
[2024-01-03] MEDS ORDERED: PANTOPRAZOLE 40 MG TABLET PO ONE (05:14)
[2024-01-03] MEDS ORDERED: MAGNESIUM OXIDE 400 MG TAB ONE (08:49)
[2024-01-03] MEDS ORDERED: PREGABALIN 75 MG CAP ONE ×2 (08:49→20:25)
[2024-01-03] MEDS ORDERED: METOPROLOL TARTRATE 25 MG TAB ONE ×2 (08:49→20:25)
[2024-01-03] MEDS ORDERED: CLOPIDOGREL 75 MG TAB ONE (08:49)
[2024-01-03] MEDS ORDERED: ASPIRIN 81 MG ONE (08:49)
[2024-01-03] MEDS ORDERED: CYANOCOBALAMIN 500 MCG TAB ONE (08:50)
[2024-01-03] MEDS ORDERED: FINASTERIDE 5 MG TAB ONE (20:25)
[2024-01-03] MEDS ORDERED: cefTRIAXone 1 GM VIAL ONE (20:25)
[2024-01-03] MEDS ORDERED: ATORVASTATIN 40 MG TAB ONE (20:25)
[2024-01-03] MEDS ORDERED: AZITHROMYCIN 500 MG VIAL IVPB ONE (21:00)
[2024-01-03] MEDS ORDERED: SODIUM CHLORIDE 0.9% 250 ML BAG ONE (21:00)
[2024-01-03] MEDS ORDERED: SODIUM CHLORIDE 0.9% 50 ML BAG IV ONE (21:00)
[2024-01-04] MEDS ORDERED: PANTOPRAZOLE 40 MG TABLET PO ONE (05:32)
[2024-01-04] MEDS ORDERED: PREGABALIN 75 MG CAP ONE (07:58)
[2024-01-04] MEDS ORDERED: MAGNESIUM OXIDE 400 MG TAB ONE (07:58)
[2024-01-04] MEDS ORDERED: CYANOCOBALAMIN 500 MCG TAB ONE (07:59)
[2024-01-04] MEDS ORDERED: METOPROLOL TARTRATE 25 MG TAB ONE (07:59)
[2024-01-04] MEDS ORDERED: CLOPIDOGREL 75 MG TAB ONE (07:59)
[2024-01-04] MEDS ORDERED: ASPIRIN 81 MG ONE (07:59)
[2024-01-04] MEDS ORDERED: FINASTERIDE 5 MG TAB ONE (08:04)
[2024-01-04] MEDS ORDERED: MIDODRINE 5 MG TAB ONE (08:30)
[2024-01-04] MEDS ORDERED: AZITHROMYCIN 500 MG VIAL IVPB ONE (21:00)
[2024-01-04] MEDS ORDERED: SODIUM CHLORIDE 0.9% 250 ML BAG ONE (21:00)
[2024-01-04] MEDS ORDERED: SODIUM CHLORIDE 0.9% 50 ML BAG IV ONE (21:00)
[2024-01-05] MEDS ORDERED: BENZONATATE 100 MG CAP PO PRN
[2024-01-05] MEDS ORDERED: IPRATROPIUM-ALBUTEROL 3 ML NEB INHALATION PRN
[2024-01-05] MEDS ORDERED: hydrALAZINE HCL 25 MG TAB PO PRN
[2024-01-05] MEDS: PANTOPRAZOLE 40 MG TABLET PO SCH (06:01)
[2024-01-05] MEDS: IPRATROPIUM-ALBUTEROL 3 ML NEB INHALATION SCH (08:02)
[2024-01-05] MEDS ORDERED: DOCUSATE 100 MG CAP PO PRN (09:00)
[2024-01-05] MEDS ORDERED: MIDODRINE 5 MG TAB PO PRN (09:00)
[2024-01-05] MEDS ORDERED: DIPHENOX-ATROP 2.5-0.025 MG 1 EACH TAB PO PRN (09:00)
--- NOTE | 2024-01-05 10:36 | P.PN ---
Subjective Patient is seen in follow-up for end-stage renal disease. He is maintained on hemodialysis on Saturday schedule. Quite lethargic. present at bedside. Vital signs are stable. General: Lethargic. HEENT: On nasal cannula. LUNGS: Scattered rhonchi. HEART: Rate and Rhythm are regular. ABDOMEN: No distention. EXTREMITITES: 1+ edema. Objective - Vital Signs Vital signs: Vital Signs Temp 98.6 F 01/05/24 08:00 Pulse 92 01/05/24 08:12 Resp 18 01/05/24 08:00 BP 116/68 01/05/24 08:00 Pulse Ox 99 01/05/24 08:00 FiO2 60 01/05/24 03:48 Intake & Output 01/04/24 01/05/24 01/05/24 18:59 06:59 18:59 Weight 58.5 kg Assessment and Plan Plan: Assessment: 1. End-stage renal disease maintained on hemodialysis on Saturday schedule. Received additional treatments this admission for volume overload. 2. Acute hypoxic respiratory failure. 3. Volume overload. 4. Multiple myeloma. On Revlimid. 5. Debility. 6. Pneumonia on antibiotics. 7. Anemia of chronic kidney disease maintained on Aranesp. Plan: Family meeting with hospice this morning. If does not proceed with hospice, will resume hemodialysis tomorrow.
[2024-01-05] MEDS: ASPIRIN 81 MG PO SCH (10:41)
[2024-01-05] MEDS: CLOPIDOGREL 75 MG TAB PO SCH (10:41)
[2024-01-05] MEDS: ATORVASTATIN 40 MG TAB PO SCH (10:41)
[2024-01-05] MEDS: FOLIC ACID-VIT B COMPLEX-VIT C 1 CAP PO SCH (10:41)
[2024-01-05] MEDS: MAGNESIUM OXIDE 400 MG TAB PO SCH (10:42)
[2024-01-05] MEDS: METOPROLOL TARTRATE 25 MG TAB PO SCH (10:42)
[2024-01-05] MEDS: PREGABALIN 75 MG CAP PO SCH (10:42)
[2024-01-05] MEDS: valACYclovir HCL 500 MG TAB PO SCH (10:42)
--- NOTE | 2024-01-05 11:25 | P.PN ---
Subjective Progress Note Date: 01/05/24 This is a 78-year-old male patient who originally presented to [facility] on 12/25/2023 with a chief complaint of worsening shortness of breath confusion. Patient had a history of end-stage renal disease in which she is maintained on dialysis. Additional medical history includes multiple myeloma. During hospital stay patient was evaluated by multiple consults chest x-ray continue to show bilateral worsening apical consolidation suspicious for pneumonia. Patient was started on IV antibiotics azithromycin and Rocephin. Pulmonary, and nephrology services following. Patient continued to decline and without any signs of improvement. Please see paper chart for progress note updates 12/26/2023 to 01/04/2024 On 01/04/2024 patient is currently resting comfortably in bed with no signs of discomfort at this time. Discussed that patient currently does not meet criteria for inpatient hospice but family would like to move forward with comfort care at this time. Requesting no more hemodialysis or antibiotics. Patient at this time will be made comfort care antibiotics DC'd. Diet added. Objective - Vital Signs Vital signs: Vital Signs Temp 98.6 F 01/05/24 08:00 Pulse 92 01/05/24 08:12 Resp 18 01/05/24 08:00 BP 116/68 01/05/24 08:00 Pulse Ox 99 01/05/24 08:00 FiO2 60 01/05/24 03:48 Intake & Output 01/04/24 01/05/24 01/05/24 18:59 06:59 18:59 Weight 58.5 kg - Exam Head normocephalic Neck supple Lungs clear to auscultation bilaterally no wheezing or crackles Heart regular rate and rhythm S1-S2, no rub or gallop Abdomen is soft nontender nondistended positive bowel sounds no hepatosplenomegaly Extremities no edema Neuro alert and orientated to 3 Assessment and Plan Assessment: 1. Acute congestive heart failure exacerbation secondary to fluid overload 2. End-stage renal disease maintained on hemodialysis 3. History of multiple myeloma 4. History of bilateral lung infiltrates patient had been on antibiotics without improvement 5. Altered mental status changes patient was followed by neurology services MRI was completed At this time it was decided per family and patient to move forward with comfort care Patient requesting no more hemodialysis or antibiotics
[2024-01-05] MEDS ORDERED: NITROGLYCERIN SL TABS 0.4 MG TAB SUBLINGUAL PRN (11:34)
[2024-01-05] MEDS ORDERED: ONDANSETRON 4 MG/2 ML VIAL IVP PRN (11:39)
[2024-01-05] MEDS: CYANOCOBALAMIN 500 MCG TAB PO SCH (12:29)
--- NOTE | 2024-01-05 12:47 | P.PN ---
Subjective Progress Note Date: 01/05/24 Principal diagnosis: Acute hypoxic respiratory failure, multifactorial Patient was seen today on 01/05/2024, patient is basically about the same, we are seeing him for acute hypoxic respiratory failure, end-stage renal disease and fluid overload with right upper lobe and left upper lobe pneumonia in the setting of multiple myeloma, patient has been on dialysis all along. No clinical improvement has been noted, apparently the today is asking to discuss her condition with hospice again. Patient was supposed to be made hospice few days ago, but changed her mind about hospice and now she is changing her mind again to proceed with hospice. I believe proceeding with hospice is very appropriate Objective - Vital Signs Vital signs: Vital Signs Temp 98.4 F 01/05/24 12:00 Pulse 87 01/05/24 12:00 Resp 20 01/05/24 12:00 BP 132/72 01/05/24 12:00 Pulse Ox 100 01/05/24 12:00 FiO2 60 01/05/24 03:48 Intake & Output 01/04/24 01/05/24 01/05/24 18:59 06:59 18:59 Weight 58.5 kg - Exam General: Frail looking chronically ill 78-year-old white male on high flow nasal cannula in no distress seems chronically ill and frail. Skin: Skin is warm and dry and no rashes or lesions are noted. Eye: Pupils are equal, round and reactive to light, extra-ocular movements are intact; there is normal conjunctiva bilaterally. Ears, nose, mouth and throat: There are moist mucous membranes and no oral lesions. Neck: The neck is supple, there is no tenderness or JVD. Cardiovascular: There is a regular rate and rhythm. No murmur, rub or gallop is appreciated. Respiratory: Crackles and rhonchi noted bilaterally. Gastrointestinal: Soft, non-distended, non-tender abdomen without masses or organomegaly noted. There is no rebound or guarding present. Bowel sounds are unremarkable. Back: There is no tenderness to palpation in the midline. There is no obvious deformity. Extremities: No clubbing, no edema, no cyanosis. Neurological: Mental status seems to wax and wane, patient seems to be appropriate today, and the patient himself is asking for hospice placement. Psychiatric: Normal mood, normal affect, normal mental status Assessment and Plan Assessment: Impression: Acute hypoxic respiratory failure Acute fluid overload secondary to end-stage renal disease and the patient is on hemodialysis Suspected right upper lobe and left upper lobe pneumonia, most likely gram- negative considering the patient's immune status and multiple myeloma Medical debility, failure to thrive Benign essential hypertension Dyslipidemia Recommendation: Discussed with his again that he is not demonstrating significant improvement over the last 1 week, Discussed with the that his prognosis is extremely poor and guarded apparently discussed his condition with his nephrologists, both agreed hospice care. Patient will be seen by hospice again today, Will continue to follow as needed Time with Patient: Less than 30
[2024-01-05] MEDS: ZINC OXIDE PASTE (Z-GUARD) 1 APPLIC TOPICAL SCH (14:32)
[2024-01-05] MEDS: FINASTERIDE 5 MG TAB PO SCH (19:54)
[2024-01-05] MEDS ORDERED: AZITHROMYCIN 500 MG in SODIUM CHLORIDE 0.9% 250 ML IVPB SCH (21:00)
[2024-01-06] MEDS: LORazepam 2 MG/ML INJ IV PRN (03:05)
[2024-01-06] MEDS: MORPHINE SULFATE 2 MG/ML SYRINGE IVP PRN (04:44)
[2024-01-06 08:12] VITALS: BP 147/74; TEMP 97.8
[2024-01-06] MEDS: REVLIMID PO SCH (08:14)
--- NOTE | 2024-01-06 10:19 | P.PN ---
Subjective Patient is seen in follow-up for end-stage renal disease. He is maintained on hemodialysis on Saturday schedule. Quite lethargic. present at bedside. Vital signs are stable. General: Lethargic. HEENT: On nasal cannula. LUNGS: Scattered rhonchi. HEART: Rate and Rhythm are regular. ABDOMEN: No distention. EXTREMITITES: 1+ edema. Objective - Vital Signs Vital signs: Vital Signs Temp 97.8 F 01/06/24 08:09 Pulse 93 01/06/24 08:09 Resp 24 01/06/24 08:09 BP 147/74 01/06/24 08:09 Pulse Ox 100 01/06/24 09:04 FiO2 60 01/05/24 03:48 Intake & Output 01/05/24 01/06/24 01/06/24 18:59 06:59 18:59 Weight 60 kg Other: # Voids 1 # Bowel Movements 2 Assessment and Plan Plan: Assessment: 1. End-stage renal disease maintained on hemodialysis on Saturday schedule. Received additional treatments this admission for volume overload. 2. Acute hypoxic respiratory failure. 3. Volume overload. 4. Multiple myeloma. On Revlimid. 5. Debility. 6. Pneumonia on antibiotics. 7. Anemia of chronic kidney disease maintained on Aranesp. Plan: Family has decided to proceed with comfort measures. I will sign off.
[2024-01-06] MEDS: LORazepam 2 MG/ML INJ ONE ×2 (15:11)
[2024-01-06] MEDS: MORPHINE SULFATE 2 MG/ML SYRINGE ONE ×3 (15:11)
[2024-01-06 15:13] VITALS: PULSE 90
[2024-01-06] MEDS: PREGABALIN 75 MG CAP ONE (15:25)
[2024-01-06] MEDS: IPRATROPIUM-ALBUTEROL 3 ML NEB ONE (15:25)
[2024-01-06] MEDS: METOPROLOL TARTRATE 25 MG TAB ONE (15:25)
--- NOTE | 2024-01-06 17:25 | P.PN ---
Subjective Progress Note Date: 01/06/24 This is a 78-year-old male patient who originally presented to [facility] on 12/25/2023 with a chief complaint of worsening shortness of breath confusion. Patient had a history of end-stage renal disease in which she is maintained on dialysis. Additional medical history includes multiple myeloma. During hospital stay patient was evaluated by multiple consults chest x-ray continue to show bilateral worsening apical consolidation suspicious for pneumonia. Patient was started on IV antibiotics azithromycin and Rocephin. Pulmonary, and nephrology services following. Patient continued to decline and without any signs of improvement. Please see paper chart for progress note updates 12/26/2023 to 01/04/2024 On 01/05/2024 patient is currently resting comfortably in bed with no signs of discomfort at this time. Discussed that patient currently does not meet criteria for inpatient hospice but family would like to move forward with comfort care at this time. Requesting no more hemodialysis or antibiotics. Patient at this time will be made comfort care antibiotics DC'd. Diet added. On 01/06/2024, patient was seen and examined on the medical floor he is alert responsive in no apparent distress, patient was started on comfort care measures only per family and patient request, at this time he is not receiving hemodialysis, and he is not receiving any antibiotics, he was started on comfort care medications with morphine Ativan and scopolamine, at this time patient is resting comfortably without any evidence of distress, will continue to follow. Objective - Vital Signs Vital signs: Vital Signs Temp 97.8 F 01/06/24 08:09 Pulse 90 01/06/24 15:13 Resp 18 01/06/24 15:13 BP 147/74 01/06/24 08:09 Pulse Ox 96 01/06/24 15:13 FiO2 60 01/05/24 03:48 Intake & Output 01/05/24 01/06/24 01/06/24 18:59 06:59 18:59 Weight 60 kg Other: # Voids 1 # Bowel Movements 2 Assessment and Plan Plan: 1. Acute congestive heart failure exacerbation secondary to fluid overload 2. End-stage renal disease maintained on hemodialysis 3. History of multiple myeloma 4. History of bilateral lung infiltrates patient had been on antibiotics without improvement 5. Altered mental status changes patient was followed by neurology services MRI was completed At this time it was decided per family and patient to move forward with comfort care Patient requesting no more hemodialysis or antibiotics
[2024-01-07] MEDS: SCOPOLAMINE 1 MG/72 HR PATCH TRANSDERM SCH ×2 (06:18→11:20)
[2024-01-07 09:12] VITALS: RESP 20
--- NOTE | 2024-01-07 09:39 | P.PN ---
Subjective Progress Note Date: 01/07/24 This is a 78-year-old male patient who originally presented to [facility] on 12/25/2023 with a chief complaint of worsening shortness of breath confusion. Patient had a history of end-stage renal disease in which she is maintained on dialysis. Additional medical history includes multiple myeloma. During hospital stay patient was evaluated by multiple consults chest x-ray continue to show bilateral worsening apical consolidation suspicious for pneumonia. Patient was started on IV antibiotics azithromycin and Rocephin. Pulmonary, and nephrology services following. Patient continued to decline and without any signs of improvement. Please see paper chart for progress note updates 12/26/2023 to 01/04/2024 On 01/05/2024 patient is currently resting comfortably in bed with no signs of discomfort at this time. Discussed that patient currently does not meet criteria for inpatient hospice but family would like to move forward with comfort care at this time. Requesting no more hemodialysis or antibiotics. Patient at this time will be made comfort care antibiotics DC'd. Diet added. On 01/06/2024, patient was seen and examined on the medical floor he is alert responsive in no apparent distress, patient was started on comfort care measures only per family and patient request, at this time he is not receiving hemodialysis, and he is not receiving any antibiotics, he was started on comfort care medications with morphine Ativan and scopolamine, at this time patient is resting comfortably without any evidence of distress, will continue to follow. On 01/07/2024 patient is comfortably resting in bed at bedside. Patient remains comfort care no signs of distress at this time Objective - Vital Signs Vital signs: Vital Signs Temp 97.8 F 01/06/24 08:09 Pulse 90 01/06/24 15:13 Resp 20 01/07/24 08:00 BP 147/74 01/06/24 08:09 Pulse Ox 96 01/06/24 15:13 FiO2 60 01/05/24 03:48 Intake & Output 01/06/24 01/07/24 01/07/24 18:59 06:59 18:59 Other: # Voids 0 0 - Exam Head normocephalic Neck supple Lungs clear to auscultation bilaterally no wheezing or crackles Heart regular rate and rhythm S1-S2, no rub or gallop Abdomen is soft nontender nondistended positive bowel sounds no hepatosplenomegaly Extremities no edema Assessment and Plan Assessment: 1. Acute congestive heart failure exacerbation secondary to fluid overload 2. End-stage renal disease maintained on hemodialysis 3. History of multiple myeloma 4. History of bilateral lung infiltrates patient had been on antibiotics wit hout improvement 5. Altered mental status changes patient was followed by neurology services MRI was completed At this time it was decided per family and patient to move forward with comfort care Patient requesting no more hemodialysis or antibiotics
[2024-01-07] MEDS: ATROPINE OPHTH SOLN 1% 5ML BTL SUBLINGUAL PRN (11:20)
[2024-01-07 13:28] VITALS: BMI 20.1
--- NOTE | 2024-01-08 09:51 | P.DS ---
Providers Date of admission: 12/24/23 16:19 Expected date of discharge: 01/07/24 Attending physician: Fred Lawrence Consults: 12/28/23 09:00 Consult Physician Routine Consulting Provider: Abbi Hawkins Consult Reason/Comments: hemodialysis Do you want consulting provider notified?: Already Contacted Primary care physician: Stated None Hospital Course: Discharge diagnosis Patient 01/07/2024 1. Acute congestive heart failure exacerbation secondary to fluid overload 2. End-stage renal disease maintained on hemodialysis 3. History of multiple myeloma 4. History of bilateral lung infiltrates patient had been on antibiotics without improvement 5. Altered mental status changes patient was followed by neurology services MRI was completed Hospital course This is a 78-year-old male patient who originally presented to [facility] on 12/25/2023 with a chief complaint of worsening shortness of breath confusion. Patient had a history of end-stage renal disease in which she is maintained on dialysis. Additional medical history includes multiple myeloma. During hospital stay patient was evaluated by multiple consults chest x-ray continue to show bilateral worsening apical consolidation suspicious for pneumonia. Patient was started on IV antibiotics azithromycin and Rocephin. Pulmonary, and nephrology services following. Patient continued to decline and without any signs of improvement. Please see paper chart for progress note updates 12/26/2023 to 01/04/2024 On 01/05/2024 patient is currently resting comfortably in bed with no signs of discomfort at this time. Discussed that patient currently does not meet criteria for inpatient hospice but family would like to move forward with comfort care at this time. Requesting no more hemodialysis or antibiotics. Patient at this time will be made comfort care antibiotics DC'd. Diet added. On 01/06/2024, patient was seen and examined on the medical floor he is alert responsive in no apparent distress, patient was started on comfort care measures only per family and patient request, at this time he is not receiving hemodialysis, and he is not receiving any antibiotics, he was started on comfort care medications with morphine Ativan and scopolamine, at this time patient is resting comfortably without any evidence of distress, will continue to follow. On 01/07/2024 patient is comfortably resting in bed at bedside. Patient remains comfort care no signs of distress at this time Plan - Discharge Summary New Discharge Prescriptions: No Action valACYclovir HCL [Valtrex] 500 mg PO DAILY Omeprazole [PriLOSEC] 20 mg PO DAILY Pro-Renal + Vit D (Unknown) 1 tab PO DAILY Pregabalin [Lyrica] 75 mg PO BID Finasteride [Proscar] 5 mg PO HS Micera 50mcg/0.3ml 50 mcg INJ Q14D Magnesium Oxide [Mag-Ox] 400 mg PO DAILY Tamsulosin [Flomax] 0.4 mg PO HS Cyanocobalamin (Vitamin B-12) [Vitamin B-12] 1,000 mcg PO DAILY Clopidogrel [Plavix] 75 mg PO DAILY #90 tab hydrALAZINE HCL 25 mg PO TID PRN PRN Reason: Hypertension Docusate [Colace] 100 mg PO BID PRN PRN Reason: Constipation Darbepoetin Ruiz [Aranesp] 80 mcg SQ DIRECTED Metoprolol Tartrate [Lopressor] 25 mg PO BID Sodium Bicarbonate Tab 650 mg PO BID Ergocalciferol (Vitamin D2) [Drisdol (50,000 Iu)] 1,250 mcg PO SA Aspirin [Adult Low Dose Aspirin EC] 81 mg PO DAILY Nitroglycerin Sl Tabs [Nitrostat] 0.4 mg SUBLINGUAL Q5M PRN #25 tab PRN Reason: Chest Pain Rosuvastatin [Crestor] 20 mg PO HS Midodrine [ProAmatine] 10 mg PO TID PRN PRN Reason: if b/p < 115/60 HYDROcodone/APAP 5-325MG [[place] 5-325] 1 tab PO Q6HR PRN 3 Days #6 tab PRN Reason: Analgesia Non Formulary Drug 2.5 mg PO DIRECTED Discharge Medication List Omeprazole [PriLOSEC] 20 mg PO DAILY 08/18/16 [History] valACYclovir HCL [Valtrex] 500 mg PO DAILY 08/18/16 [History] Finasteride [Proscar] 5 mg PO HS 03/30/18 [History] Pregabalin [Lyrica] 75 mg PO BID 03/30/18 [History] Pro-Renal + Vit D (Unknown) 1 tab PO DAILY 03/30/18 [History] Ergocalciferol (Vitamin D2) [Drisdol (50,000 Iu)] 1,250 mcg PO SA 05/21/23 [History] Magnesium Oxide [Mag-Ox] 400 mg PO DAILY 05/21/23 [History] Micera 50mcg/0.3ml 50 mcg INJ Q14D 05/21/23 [History] Sodium Bicarbonate Tab 650 mg PO BID 05/21/23 [History] Tamsulosin [Flomax] 0.4 mg PO HS 05/21/23 [History] Cyanocobalamin (Vitamin B-12) [Vitamin B-12] 1,000 mcg PO DAILY 06/18/23 [History] Aspirin [Adult Low Dose Aspirin EC] 81 mg PO DAILY 06/24/23 [History] Clopidogrel [Plavix] 75 mg PO DAILY #90 tab 09/04/23 [Rx] Nitroglycerin Sl Tabs [Nitrostat] 0.4 mg SUBLINGUAL Q5M PRN #25 tab 09/04/23 [Rx] Rosuvastatin [Crestor] 20 mg PO HS 09/24/23 [History] Midodrine [ProAmatine] 10 mg PO TID PRN 10/16/23 [History] hydrALAZINE HCL 25 mg PO TID PRN 10/16/23 [History] HYDROcodone/APAP 5-325MG [[place] 5-325] 1 tab PO Q6HR PRN 3 Days #6 tab 10/18/23 [Rx] Darbepoetin Ruiz [Aranesp] 80 mcg SQ DIRECTED 12/13/23 [History] Docusate [Colace] 100 mg PO BID PRN 12/13/23 [History] Metoprolol Tartrate [Lopressor] 25 mg PO BID 12/13/23 [History] Non Formulary Drug 2.5 mg PO DIRECTED 12/13/23 [History] Discharge Disposition: - Preliminary Cause of Preliminary Cause of : End-stage renal disease, CHF
[2024-01-11] MEDS ORDERED: ERGOCALCIFEROL 1,250 MCG (50,000 IU) CAPSULE PO SCH (09:00)
[2024-01-11] MEDS ORDERED: DARBEPOETIN ALFA 40 MCG/0.4 ML SYRINGE SQ SCH (09:00)
--- NOTE | 2024-01-16 17:28 | XR ---
Report Patient: Dean Earl R Ordering Physician: Unknown, Unknown ID: [id number] Phone, Pager: Phone: N/A Pager: N/A : 1945 Age/Gender: 78Y, M Primary Location: N/A Procedure: CHEST 1V XRAY Study Date: 01/03/2024 10:56:00 AM EXAMINATION TYPE: XR chest 1V DATE OF EXAM: 01/04/2024 COMPARISON: 01/02/2024 HISTORY: 78-year-old male follow-up pneumonia TECHNIQUE: Single frontal view of the chest is obtained. FINDINGS: Left-sided double-lumen hemodialysis catheter tips in the upper right atrium. Heart remain s moderately enlarged with diffuse patchy confluence and airspace opacities in moderate right effusio n and additional pleural thickening along the periphery of the left hemithorax. IMPRESSION: Overall stable exam with moderate cardiomegaly and extensive bilateral pleural-parenchym al opacities likely combination of pleural effusions and airspace disease.
--- NOTE | 2024-01-20 15:30 | MR ---
Site ID [facility] Patient Dean Earl ID [id number] Order # Procedure MRI brain wo con EXAMINATION TYPE: MR brain wo con DATE OF EXAM: 12/26/2023 12:58 PM CLINICAL INDICATION: R/O CVA CONFUSION, WEAKNESS, HX OF MULTIPLE MYELOMA COMPARISON: THIS EXAM WAS READ DURING PACS DOWNTIME, NO PRIORS AVAILABLE.. TECHNIQUE: Multi planar, multi sequence imaging was performed through the brain including: T1, T2, In version recovery, Diffusion weighted imaging, and gradient echo imaging. No gadolinium was given. FINDINGS: The gong-white junctions, ventricular system, basal cisterns appear unremarkable. Scattered foci of high T2 signal intensity are seen within the periventricular white matter. Midline structures show n o abnormality. Diffusion-weighted imaging shows no evidence of restricted diffusion. The susceptibili ty weighted images do not reveal any evidence for micro-hemorrhage. The bone marrow signal is within normal limits. Paranasal sinuses and mastoid air cells: No significant paranasal sinus disease. Visualized orbits: Bilateral aphakia IMPRESSION: 1. No evidence of intracranial mass or acute/subacute infarct. 2. Nonspecific white matter changes, likely secondary to small vessel ischemic disease.
--- NOTE | 2024-01-20 16:37 | CT ---
Patient eDan Earl ID [id number] Order # EXAMINATION TYPE: CT brain wo con DATE OF EXAM: 12/24/2023 COMPARISON: None on downtime PACS INDICATION: History of brain cancer acute mental status changes DLP: 1168.6 mGycm, Automated exposure control for dose reduction was used. CONTRAST: None CT of the brain is performed utilizing 3 mm thick sections through the posterior fossa and 3 mm thick sections through the remaining calvarium. Study is performed within 24 hours of arrival to the hosp ital. Beam hardening artifact from dental amalgam is present. No abnormal hyperdensity is present to suggest an acute intracranial hemorrhage. No mass lesion is evident. Patient's reported prior intracranial neoplasm is not identified. No acute infarcts are evident. Ventricles and sulci are prominent for the patient age. Mucosal thickening is within the right maxillary sinus. Remaining paranasal sinuses and mastoid air c ells are clear. IMPRESSION: 1. No acute intracranial process radiographically apparent. Follow-up MRI can be performed as clini gopal indicated.
--- NOTE | 2024-01-28 07:46 | XR ---
Patient Dean Earl ID [id number] Order # EXAMINATION TYPE: XR chest 1V DATE OF EXAM: 12/27/2023 COMPARISON: No comparison available on downtime PACS. INDICATION: Pulmonary edema TECHNIQUE: Single frontal view of the chest is obtained. FINDINGS: The heart size is prominent. The pulmonary vasculature is prominent. Large apical consolidations are evident with air bronchograms. Small to moderate right pleural effus ion is present. Minimal left pleural effusion is present. Catheter is present on the right with the tip in the proximal right atrium. IMPRESSION: 1. Clinical correlation for congestive heart failure. 2. Bilateral apical consolidations. Correlate for pneumonia and atypical pulmonary edema. 3. Moderate right and minimal left pleural effusion.
--- NOTE | 2024-01-28 13:06 | XR ---
Patient: Dean Earl R Ordering Physician: Unknown, Unknown ID: [id number] Phone, Pager: Phone: N/A Pager: N/A : 1945 Age/Gender: 78Y, M Primary Location: N/A Procedure: XRCHEST 1V Study Da te: 01/02/2024 10:19:00 AM EXAMINATION TYPE: XR chest 1V portable DATE OF EXAM: 01/02/2024 HISTORY: Shortness of breath. COMPARISON: 12/31/2023 TECHNIQUE: Single view of the chest is submitted. FINDINGS: Demonstrated are scattered senescent parenchymal change. Overall stable appearance of diffuse patchy infiltrates and bilateral pleural effusions. Large bore c entral venous line unchanged in position. The heart is stable. Hilar and mediastinal structures are within normal limits. Degenerative changes are seen of the dorsal spine. IMPRESSION: 1. Overall stable appearance of diffuse patchy infiltrates and bilateral pleural effusions. Large tierra re central venous line unchanged in position.
--- NOTE | 2024-02-01 19:12 | XR ---
EXAM: XR Chest, 1 View CLINICAL HISTORY: aspiration TECHNIQUE: Frontal view of the chest. COMPARISON: No relevant prior studies available. FINDINGS: Lungs: Patchy bilateral airspace consolidations, consistent with multilobar pneumonia. Small bilateral pleural effusions. Pleural space: See above. Heart:Unremarkable. No cardiomegaly. Mediastinum:Unremarkable. Normal mediastinal contour. Bones/joints:Unremarkable. No acute fracture. Tubes, lines and devices: LEFT dialysis catheter terminates in the RIGHT atrium. IMPRESSION: Patchy bilateral airspace consolidations, consistent with multilobar pneumonia. Small bilateral pleural effusions. Radiologist: Steven Drummond MD Electronically Signed: 01/05/24 04:05 Study ready at 03:50 and initial results transmitted at 04:05 [facility]
--- NOTE | 2024-02-12 13:02 | XR ---
Patient Dean Earl ID [id number] Order # EXAMINATION TYPE: XR chest 1V DATE OF EXAM: 12/25/2023 COMPARISON: 12/25/2023 INDICATION: Previous abnormal TECHNIQUE: Single frontal view of the chest is obtained. FINDINGS: The heart size is prominent. The pulmonary vasculature is distinct. There is increasing density within the bilateral lung apices. Small right pleural effusion is present . Mild left lower lobe infiltrate is present. Catheter is present on the left with the tips in the right atrium. IMPRESSION: 1. Worsening bilateral apical consolidations. Correlate for pneumonia. 2. Small left pleural effusion. 3. Mild infiltrate is at the left base. Continued follow-up is recommended.
--- NOTE | 2024-02-12 20:51 | XR ---
EXAM: XR Chest, 1 View CLINICAL HISTORY: Shortness of breath. TECHNIQUE: Frontal view of the chest. COMPARISON: No relevant prior studies available. FINDINGS: Lungs:Bilateral interstitial and airspace opacities, with probable moderate pulmonary edema as well as multifocal airspace consolidation, most prominently within the right upper lobe. Pleural space:No evidence of pneumothorax. Bilateral pleural effusions, right greater than left. Heart: Mildly enlarged cardiac silhouette. Mediastinum:No mediastinal widening or shift. Tunneled left subclavian dual lumen catheter in place with tip in the distal SVC. Bones/joints:No acute osseous abnormality. IMPRESSION: Pulmonary edema and bilateral pleural effusions, suggestive of congestive heart failure or hypervolemia. Multifocal airspace consolidation, concerning for pneumonia. Recommend follow-up chest radiograph to confirm resolution, or further evaluate with chest CT. Tunneled left subclavian catheter with tip in distal SVC. Radiologist: Vinay Steele M.D. Electronically Signed: 12/30/23 09:03 Study first marked ready to read at 05:28, study last marked ready to read at 05:28, initial results transmitted at 09:03 [facility]
== END 2024-01-07 13:31 | disposition expired | DRG 291 ==
LOC: 3SCARD 16:19
PROVIDERS: ADMIT Internal Medicine; ATTEND Internal Medicine
PROC: 5A1D70Z Performance of Urinary Filtration, Intermittent, Less than 6 Hours Per Day (ICD-10-PCS; principal; 2023-12-24)
PROC: 5A09357 Assistance with Respiratory Ventilation, Less than 24 Consecutive Hours, Continuous Positive Airway Pressure (ICD-10-PCS; 2023-12-31)
DX: I13.2 Hypertensive heart and chronic kidney disease with heart failure and with stage 5 chronic kidney disease, or end stage renal disease (principal); G92.8 Other toxic encephalopathy; J15.69 Pneumonia due to other Gram-negative bacteria; J96.21 Acute and chronic respiratory failure with hypoxia; N18.6 End stage renal disease; C90.00 Multiple myeloma not having achieved remission; I25.10 Atherosclerotic heart disease of native coronary artery without angina pectoris; E78.5 Hyperlipidemia, unspecified; I95.1 Orthostatic hypotension; D63.1 Anemia in chronic kidney disease; N40.0 Benign prostatic hyperplasia without lower urinary tract symptoms; K57.90 Diverticulosis of intestine, part unspecified, without perforation or abscess without bleeding; K44.9 Diaphragmatic hernia without obstruction or gangrene; R47.81 Slurred speech; D75.89 Other specified diseases of blood and blood-forming organs; K21.9 Gastro-esophageal reflux disease without esophagitis; R62.7 Adult failure to thrive; I50.9 Heart failure, unspecified; Z66 Do not resuscitate; Z68.20 Body mass index [BMI] 20.0-20.9, adult; Z51.5 Encounter for palliative care; Z99.2 Dependence on renal dialysis; Z95.5 Presence of coronary angioplasty implant and graft; Z79.60 Long term (current) use of unspecified immunomodulators and immunosuppressants; Z79.82 Long term (current) use of aspirin; Z79.899 Other long term (current) drug therapy; Z79.02 Long term (current) use of antithrombotics/antiplatelets
CPT/HCPCS: 70450; 70551; 71045; 71046; 86706; 87340; 90935; 94640; 94660; 94760; 99285